=== PATIENT | male | born 1945 | race Caucasian/White ===

== ENCOUNTER 2017-09-13 08:04 | Day surgery (SDC) | payer MEDICARE ==
[2017-09-12 13:57] VITALS: BMI 37.2
[~2017-09-13 08:04] MED LIST: ACETAMINOPHEN 325 MG TABLET (FP) PO PRN; BSS (NA/CA/MG/K) BALANCED SALT SOLUTION OPHTH SOLN 15 ML BOTTLE OD ONE; CHONDROITIN SU A/HYALUR SOD 1 KIT IO ONE; CIPROFLOXACIN HCL 0.3% OPHTH 2.5ML BOTTLE OP SCH; CYCLOPENTOLATE HCL 1% OPHTH SOLN 2 ML BOTTLE OP SCH; EPINEPHrine/PF 1 MG/1 ML (1:1,000) AMPULE IO ONE; FLURBIPROFEN 0.03% OPHTH SOLN 2.5 ML BOTTLE OP SCH; LIDOCAINE HCL 1% PRESERVATIVE FREE - 30ML VIAL IO ONE; PHENYLEPHRINE 2.5% OPHTH SOLN 15 ML BOTTLE OP SCH; POVIDONE-IODINE 5% OPHTHALMIC PREP 30 ML SOLUTION OD ONE; TROPICAMIDE 1% OPHTH SOLN 15 ML BOTTLE OP SCH
[2017-09-13] MEDS ORDERED: CIPROFLOXACIN 0.3% EYE DROPS 5 ML BOTTLE ONE (08:37)
[2017-09-13] MEDS ORDERED: TROPICAMIDE 1% OPHTH SOLN 15 ML BOTTLE ONE (08:37)
[2017-09-13] MEDS ORDERED: CYCLOPENTOLATE HCL 1% OPHTH SOLN 2 ML BOTTLE ONE (08:37)
[2017-09-13] MEDS ORDERED: PHENYLEPHRINE 2.5% OPHTH SOLN 15 ML BOTTLE ONE (08:37)
[2017-09-13 08:56] VITALS: TEMP 98.2
[2017-09-13] MEDS ORDERED: TROPICAMIDE 1% OPHTH SOLN 15 ML BOTTLE OD ONE ×2 (09:15→09:20)
[2017-09-13] MEDS ORDERED: PHENYLEPHRINE 2.5% OPHTH SOLN 15 ML BOTTLE OD ONE ×2 (09:15→09:20)
[2017-09-13] MEDS ORDERED: CYCLOPENTOLATE HCL 1% OPHTH SOLN 2 ML BOTTLE OD ONE ×2 (09:15→09:20)
[2017-09-13] MEDS ORDERED: CIPROFLOXACIN HCL 0.3% OPHTH 2.5ML BOTTLE OD ONE ×2 (09:15→09:20)
[2017-09-13] MEDS ORDERED: TETRACAINE 0.5% OPHTH SOLN 2 ML BOTTLE OD ONE (09:48)
[2017-09-13] MEDS ORDERED: MIDAZOLAM HCL 2 MG/2 ML SINGLE DOSE VIAL ONE (09:49)
[2017-09-13] MEDS ORDERED: TETRACAINE 0.5% OPHTH SOLN 2 ML BOTTLE ONE (09:59)
[2017-09-13] MEDS ORDERED: POVIDONE-IODINE 5% OPHTHALMIC PREP 30 ML SOLUTION OD ONE (10:13)
[2017-09-13] MEDS ORDERED: LIDOCAINE HCL 1% PRESERVATIVE FREE - 30ML VIAL IO ONE (10:21)
[2017-09-13] MEDS ORDERED: BSS (NA/CA/MG/K) BALANCED SALT SOLUTION OPHTH SOLN 15 ML BOTTLE OD ONE (10:21)
[2017-09-13] MEDS ORDERED: CHONDROITIN SU A/HYALUR SOD 1 KIT IO ONE (10:21)
[2017-09-13] MEDS ORDERED: EPINEPHrine/PF 1 MG/1 ML (1:1,000) AMPULE IO ONE (10:27)
--- NOTE | 2017-09-13 11:04 | SPEC ---
DATE OF OPERATION: OPERATION: Phacoemulsification of right cataract with posterior chamber intraocular lens implantation. Lens used [id number], 22.5 diopter power, Serial No. [id number]. PREOPERATIVE DIAGNOSIS: Cataract, right eye. POSTOPERATIVE DIAGNOSIS: Cataract, right eye. SURGEON: Chavez Culver M.D. ANESTHESIA: Topical MAC. COMPLICATIONS: None. PROCEDURE: The patient was brought to the operating room and correctly identified along with the operative site and the correct intraocular lens pichardo. The patient was then prepped and draped in the usual sterile fashion including 5% Betadine solution in the conjunctival sac and an eyelid drape. An eyelid speculum was then placed in the eye. A paracentesis port was created and approximately 0.5 mL of preservative free Lidocaine was then injected into the eye. Viscoelastic was then injected to inflate the anterior chamber. A temporal clear corneal wound was created. A continuous circular capsulorrhexis was performed. The nucleus was then hydrodissected with BSS and removed with phacoemulsification. The remaining cortical material was irrigated and aspirated. Viscoelastic was injected to inflate the capsular bag and the intraocular lens was then implanted into the capsular bag. The remaining Viscoelastic was irrigated and aspirated from the eye. The IOL was noted to be well centered and completely covered by the anterior capsulorrhexis. Topical vancomycin was placed and the eye patched and shielded. All wounds were tested and found to be watertight. No suture was placed. The eye was then shielded. The patient was then discharged from the operating room in stable condition. Nikky POLLARD/[id number]
[2017-09-13 11:47] VITALS: BP 106/70; PULSE 96
== END 2017-09-13 12:07 | disposition home or self-care (01) ==
LOC: JASU-SURG 08:04
PROVIDERS: ATTEND Ophthalmology
PROC: 08RJ3JZ Replacement of Right Lens with Synthetic Substitute, Percutaneous Approach (ICD-10-PCS; principal; 2017-09-13 10:00)
DX: H26.9 Unspecified cataract (principal)

== ENCOUNTER 2019-01-25 12:21 | Inpatient (IN) | payer OTHER ==
--- NOTE | 2019-01-25 12:32 | PDOC ---
History of Present Illness - General Stated Complaint: SHORTNESS OF BREATHE Time Seen by Provider: 01/25/19 12:30 History Source: Patient Exam Limitations: No Limitations - History of Present Illness Initial Comments: 73 yo M w a hx of CAD, CABG - 2004, IDDM with CKD, HTN, HLD, COPD on home O2, sleep apnea, refractory anemia presents to the ER sent from his renal doctor because the patient had a fast and irregular heart rate and the patient also appeared yellow. Here in the ED the patient is short of breath and endorses difficulty breathing. He states he cannot lie flat and feels like he will choke if he lies back. The patient states he has been experiencing worsening shortness of breath over the past few weeks. He has a hard time walking two block without becoming short of breath. He denies having any current chest pain and states that he has not experienced chest pain since he received quadruple bypass surgery in 2004. He notes to be compliant with all of his meds. The patient reports he has no history of liver disease and has never used IV drugs. PCP: Dashawn Sauceda Hairspring Assembler: Dr. Macario PSH: quadruple bypass, pacemaker, cataracts Social Hx: Former 40 pack year smoker. Quit 15 years ago. Denies alcohol or other substance usage. Allergies: NKA, NKDA Past History - Past Medical History Allergies/Adverse Reactions: Allergies Allergy/AdvReac Type Severity Reaction Status Date / Time No Known Allergies Allergy Verified 01/25/19 12:44 Home Medications: Ambulatory Orders Aspirin [Aspirin EC] 81 mg PO DAILY 09/12/17 Insulin Aspart [Novolog] 5 unit SQ TID 09/12/17 Albuterol Sulfate Inhaler - [Ventolin Hfa Inhaler -] 1 - 2 inh PO Q4H 09/13/17 Docusate Sodium [Colace -] 100 mg PO DAILY 09/13/17 Folic Acid 1 mg PO DAILY 09/13/17 Furosemide 20 mg PO DAILY 09/13/17 Linaclotide [Linzess] 145 mcg PO DAILY 09/13/17 Meclizine HCl 25 mg PO DAILY 09/13/17 Metoprolol Succinate [Toprol Xl -] 50 mg PO BID 09/13/17 Sodium Bicarbonate 650 mg PO TID 09/13/17 Umeclidinium Brm/Vilanterol Tr [Anoro Ellipta 62.5-25 Mcg INH] 1 each IH DAILY 09/13/17 Atorvastatin Calcium [Lipitor] 10 mg PO DAILY 01/25/19 Icosapent Ethyl [Vascepa] 2 gm PO BID 01/25/19 Insulin Detemir [Levemir Flextouch] 0 unit SQ DAILY 01/25/19 Insulin Glargine,Hum.rec.anlog [Basaglar Kwikpen U-100] 20 unit SQ DAILY Ranolazine [Ranexa] 1,000 mg PO BID 01/25/19 Ticagrelor [Brilinta] 90 mg PO BID 01/25/19 Anemia: Yes Asthma: No Cancer: No Cardiac Disorders: Yes (BYPASS) CVA: No COPD: Yes CHF: No Dementia: No Diabetes: Yes GI Disorders: No Disorders: Yes ("KIDNEY PROBLEM") HTN: Yes Hypercholesterolemia: Yes Liver Disease: No Seizures: No Thyroid Disease: Yes - Surgical History Cardiac Surgery: Yes (BYPASS,STENT,PACEMAKER) - Suicide/Smoking/Psychosocial Hx Smoking History: Never smoked Hx Alcohol Use: No Drug/Substance Use Hx: No Substance Use Type: None Hx Substance Use Treatment: No Review of Systems - Review of Systems Able to Perform ROS?: Yes Comments:: CONSTITUTIONAL: Present: Fatigue Absent: fever, no chills EYES: Absent: visual changes ENT: Absent: ear pain, no sore throat CARDIOVASCULAR: Absent: chest pain, no palpitations RESPIRATORY: Present: Cough, SOB GI: Absent: abdominal pain, no nausea, no vomiting, no constipation, no diarrhea GENITOURINARY: Absent: dysuria, no frequency, no hematuria MUSKULOSKELETAL: Present: Arthralgia Absent: back pain, no myalgia SKIN: Absent: rash NEURO: Absent: headache *Physical Exam - Physical Exam Comments: GENERAL: Patient looks Yellow on his upper body. Moderate distress. HEENT: Normocephalic, atraumatic. PERRL, EOM intact. CARDIOVASCULAR: Tachycardic rate and irregular rhythm. Normal S1, S2. PULMONARY: There are crackles midway up both lung infante. Clear evidence of respiratory distress. ABDOMEN: Hard, distended, non-tender. EXTREMITIES: Normal ROM in all four extremities. No gross deformities. 1+ edema in both legs , 1+ DP pulses SKIN: Warm, dry. Yellow NEUROLOGICAL: No focal neurological deficits. ED Treatment Course - LABORATORY CBC & Chemistry Diagram: 01/25/19 13:00 01/25/19 13:00 Medical Decision Making - Medical Decision Making 73 yo M w a hx of CAD, CABG - 2004, IDDM with CKD, HTN, HLD, COPD on home O2, sleep apnea, refractory anemia presents to the ER sent from his renal doctor because the patient had a fast and irregular heart rate and the patient also appeared yellow. Here in the ED the patient is short of breath and endorses difficulty breathing. He states he cannot lie flat and feels like he will choke if he lies back. The patient states he has been experiencing worsening shortness of breath over the past few weeks. He has a hard time walking two block without becoming short of breath. He denies having any current chest pain and states that he has not experienced chest pain since he received quadruple bypass surgery in 2004. He notes to be compliant with all of his meds. The patient reports he has no history of liver disease and has never used IV drugs. VS: Tachycardic, tachypneic - crackles midway up both lung infante DDx IBNLT: Afib w RVR, CHF, ACS/TX, Arrhythmia, PNA, Sepsis Plan: Labs, Urine, CXR, EKG, ECHO, Cardio consult, Lasix, Lopressor, Admit Tele. - Will do bedside ECHO and get a formal one. - Will consult cardio - varsha regarding whether to give lopressor or diltiazem Troponin elevated at 0.27 BNP elevated suggesting heart failure Varsha came and evaluated the patient and agrees with the plan to diurese him, slow down his HR with lopressor and admit the patient to Tele. - EKG similar to baseline according to Dr. cerda Patient's Primary is Dashawn Sauceda - Spoke with Danielle about the patient who accepted the admission to his service. The son - Marshal - would like to be updated with results - [phone] *DC/Admit/Observation/Transfer Diagnosis at time of Disposition: Heart failure, Atrial fibrillation with RVR, Pulmonary edema with congestive heart failure - Discharge Dispostion Condition at time of disposition: Guarded Decision to Admit order: Yes - Referrals - Patient Instructions - Post Discharge Activity
--- NOTE | 2019-01-25 12:33 | PDOC ---
Attending Attestation - HPI HPI: 01/25/19 13:04 The patient is a 73 year old male, with a significant PMH of Anemia, COPD on O2 , sleep apnea, HF, CABG (2004), diabetes, HTN, hypercholesterolemia, and thyroid disease who presents to the emergency department with worsening shortness of breath for the past couple of weeks. The patient states he went to see Dr. Clements, and was advised to come to the ED due to his fast and irregular heart rate. The patient states he endorses mild leg swelling, secondary to his symptoms. The patient denies chest pain, headache or dizziness. The patient denies fever, chills, diarrhea or constipation. The patient denies dysuria, frequency, urgency or hematuria. Allergies: NKDA Past surgical history: Cardiac Surgery (quadruple bypass, stent, pacemaker) Social history: Former smoker (quit 15 years ago). No alcohol use. PCP: Dr. Dashawn Sauceda Cigar Head Perforator: Dr. Macario <Kavitha Ash - Last Filed: 01/25/19 13:09> - Resident Resident Name: Frank Cortes - ED Attending Attestation I have performed the following: I have examined & evaluated the patient, The case was reviewed & discussed with the resident, I agree w/resident's findings & plan, Exceptions are as noted - Physicial Exam PE: GENERAL: Awake, alert, and fully oriented, in no acute distress. Obese. HEAD: No signs of trauma EYES: PERRLA, EOMI, sclera anicteric, conjunctiva clear ENT: Auricles normal inspection, hearing grossly normal, nares patent, oropharynx clear without exudates. Moist mucosa NECK: Normal ROM, supple, no lymphadenopathy, JVD, or masses LUNGS: Good air entry B/L, +Coarse crackles residential up lung infante B/L. HEART: Regular rate and rhythm, normal S1 and S2, no murmurs, rubs or gallops ABDOMEN: Soft, nontender, normoactive bowel sounds. No guarding, no rebound. No masses EXTREMITIES: Normal range of motion, 1+ pitting edema BLE to proximal garcia. No clubbing or cyanosis. No cords, erythema, or tenderness NEUROLOGICAL: Cranial nerves II through XII grossly intact. Normal speech. Motor and sensation intact SKIN: Warm, Dry, normal turgor, no rashes or lesions noted. - Medical Decision Making EKG appears to be aflutter (p waves are inverted). Will contact cardio for prior EKG results, as last one in [facility] is from 2017. Will give castro as he is clearly fluid-overloaded. Plan for admission. <Jennifer Patel - Last Filed: 01/25/19 13:18> Attestations - Attestations 01/25/19 13:05 Documentation prepared by Kavitha Ash, acting as emergency medical dispatcher for Jennifer Patel MD, MD <Kavitha Ash - Last Filed: 01/25/19 13:09>
[2019-01-25] MEDS ORDERED: FUROSEMIDE 40 MG/4 ML INJECTABLE VIAL IVPUSH ONE (12:48)
[2019-01-25] MEDS ORDERED: ASPIRIN 81 MG CHEWABLE TABLETS PO ONE (12:48)
[2019-01-25] MEDS ORDERED: FUROSEMIDE 40 MG/4 ML INJECTABLE VIAL ONE (13:12)
[2019-01-25 13:18] LABS: BASO % 0.2 % (0-2.0); EOS % 0.6 % (0-4.5); HEMATOCRIT 26.1 % (35.4-49); HEMOGLOBIN 8.3 GM/dL (11.7-16.9); LYMPH % 10.3 % (8-40); MCH 32.2 pg (25.7-33.7); MCHC 31.9 g/dl (32.0-35.9); MEAN CELL VOLUME 100.9 fl (80-96); MEAN PLT VOLUME 9.3 fl (7.5-11.1); MONO % 8.4 % (3.8-10.2); NEUT % 80.5 % (42.8-82.8); PLATELET COUNT 217 K/MM3 (134-434); RBC 2.59 M/mm3 (4.00-5.60); RDW 29.4 % (11.9-15.9); WHITE BLOOD COUNT 11.4 K/mm3 (4.0-10.0)
[2019-01-25 13:30] LABS: INR 1.29 (0.83-1.09); PROTHROMBIN TIME (PATIENT) 15.3 SEC (9.7-13.0)
[2019-01-25 13:32] LABS: ACTIVATED PTT 33.5 SECONDS (25.2-36.5)
--- NOTE | 2019-01-25 13:40 | CON.CARD ---
Consult Consult Specialty:: Cardiology Reason for Consultation:: sob - History of Present Illness History of Present Illness: The patient is a 73 year old male, with a significant PMH of Anemia, COPD on O2 , sleep apnea, HF, CABG (2004), diabetes, HTN, hypercholesterolemia, and thyroid disease who presents to the emergency department with worsening shortness of breath for the past couple of weeks. The patient states he went to see Dr. Clements, and was advised to come to the ED due to his fast and irregular heart rate. The patient states he endorses mild leg swelling, secondary to his symptoms. The patient denies chest pain, headache or dizziness. The patient denies fever, chills, diarrhea or constipation. The patient denies dysuria, frequency, urgency or hematuria. Allergies: NKDA Past surgical history: Cardiac Surgery (quadruple bypass, stent, pacemaker) Social history: Former smoker (quit 15 years ago). No alcohol use. PCP: Dr. Dashawn Sauceda Beading Installer: Dr. Macario PMH Ongoing medical problems 4 v CABG DOVE to LAD, radial to OM, SVG to Ramus and D1 [facility] s/p L CEA ASHD s/p PCI dRCA Resolute stent April 2013 [facility] distal LM January 2014 Dr. Daniel DM Hyperlipidemia s/p ICD Medtronic single chamber 2009 - History Source History Provided By: Patient, Medical Record - Past Medical History Cardio/Vascular: Yes: CAD, CHF - Alcohol/Substance Use Hx Alcohol Use: No - Smoking History Smoking history: Never smoked Have you smoked in the past 12 months: No Home Medications - Allergies Allergies/Adverse Reactions: Allergies Allergy/AdvReac Type Severity Reaction Status Date / Time No Known Allergies Allergy Verified 01/25/19 12:44 - Home Medications Home Medications: Ambulatory Orders Aspirin [Aspirin EC] 81 mg PO DAILY 09/12/17 Insulin Aspart [Novolog] 5 unit SQ TID 09/12/17 Albuterol Sulfate Inhaler - [Ventolin Hfa Inhaler -] 1 - 2 inh PO Q4H 09/13/17 Docusate Sodium [Colace -] 100 mg PO DAILY 09/13/17 Folic Acid 1 mg PO DAILY 09/13/17 Furosemide 20 mg PO DAILY 09/13/17 Linaclotide [Linzess] 145 mcg PO DAILY 09/13/17 Meclizine HCl 25 mg PO DAILY 09/13/17 Metoprolol Succinate [Toprol Xl -] 50 mg PO BID 09/13/17 Sodium Bicarbonate 650 mg PO TID 09/13/17 Umeclidinium Brm/Vilanterol Tr [Anoro Ellipta 62.5-25 Mcg INH] 1 each IH DAILY 09/13/17 Atorvastatin Calcium [Lipitor] 10 mg PO DAILY 01/25/19 Icosapent Ethyl [Vascepa] 2 gm PO BID 01/25/19 Insulin Detemir [Levemir Flextouch] 0 unit SQ DAILY 01/25/19 Insulin Glargine,Hum.rec.anlog [Basaglar Kwikpen U-100] 20 unit SQ DAILY Ranolazine [Ranexa] 1,000 mg PO BID 01/25/19 Ticagrelor [Brilinta] 90 mg PO BID 01/25/19 Review of Systems - Review of Systems Constitutional: reports: No Symptoms Eyes: reports: No Symptoms HENT: reports: No Symptoms Neck: reports: No Symptoms Cardiovascular: reports: No Symptoms, Shortness of Breath Gastrointestinal: reports: No Symptoms Genitourinary: reports: No Symptoms Breasts: reports: No Symptoms Reported Musculoskeletal: reports: No Symptoms Integumentary: reports: No Symptoms Neurological: reports: No Symptoms Endocrine: reports: No Symptoms Hematology/Lymphatic: reports: No Symptoms Psychiatric: reports: No Symptoms Vital Signs: Vital Signs Temperature 98.6 F 01/25/19 12:25 Pulse Rate 112 H 01/25/19 12:25 Respiratory Rate 20 01/25/19 12:25 Blood Pressure 134/81 01/25/19 12:25 O2 Sat by Pulse Oximetry (%) 98 01/25/19 12:43 Constitutional: Yes: Well Nourished, No Distress, Calm Eyes: Yes: WNL, Conjunctiva Clear, EOM Intact HENT: Yes: WNL, Atraumatic, Normocephalic Neck: Yes: WNL, Supple, Trachea Midline Respiratory: Yes: WNL, Regular, CTA Bilaterally Gastrointestinal: Yes: WNL, Normal Bowel Sounds Renal/: Yes: WNL Cardiovascular: Yes: WNL, Regular Rate and Rhythm Heart Sounds: Yes: S1 Musculoskeletal: Yes: WNL Extremities: Yes: WNL Edema: Yes Integumentary: Yes: WNL Neurological: Yes: WNL, Alert, Oriented ...Motor Strength: WNL Psychiatric: Yes: WNL, Alert, Oriented - Other Data Labs, Other Data: CBC, BMP 01/25/19 13:00 INR, PTT INR 1.29 (0.83-1.09) H 01/25/19 13:00 Laboratory Tests 01/25/19 01/25/19 13:00 13:00 WBC 11.4 H RBC 2.59 L Hgb 8.3 L Hct 26.1 L MCV 100.9 H MCH 32.2 MCHC 31.9 L RDW 29.4 H Plt Count 217 MPV 9.3 Absolute Neuts (auto) 9.2 H Neutrophils % 80.5 Lymphocytes % 10.3 Monocytes % 8.4 Eosinophils % 0.6 Basophils % 0.2 Nucleated RBC % 1 H PT with INR 15.30 H INR 1.29 H PTT (Actin FS) 33.5 Imaging - Results Chest X-ray: Pending EKG: Pending Assessment/Plan Anemia, COPD on O2, sleep apnea, HF, CABG (2004), diabetes, HTN, hypercholesterolemia, and thyroid disease who presents to the emergency department with worsening shortness of breath for the past couple of weeks. The patient states he went to see Dr. Clements, and was advised to come to the ED due to his fast and irregular heart rate. The patient states he endorses mild leg swelling, secondary to his symptoms. 4 v CABG DOVE to LAD, radial to OM, SVG to Ramus and D1 [facility] s/p L CEA ASHD s/p PCI dRCA Resolute stent April 2013 [facility] distal LM January 2014 Dr. Daniel DM Hyperlipidemia s/p ICD Medtronic single chamber 2009
[2019-01-25 13:52] LABS: ALBUMIN 3.6 g/dl (3.4-5.0); ALK PHOS 50 U/L (45-117); ANION GAP 5 MMOL/L (8-16); BILIRUBIN,TOTAL 1.2 mg/dL (0.2-1); BLOOD UREA NITROGEN 20 mg/dL (7-18); CALCIUM 8.5 mg/dL (8.5-10.1); CHLORIDE 101 mmol/L (98-107); CO2 29 mmol/L (21-32); CREATININE 1.2 mg/dL (0.55-1.3); GLUCOSE,RANDOM 58 mg/dL (74-106); N-TERMINAL BNP 4858.4 pg/ml (5-125); POTASSIUM 4.4 mmol/L (3.5-5.1); SGOT/AST 26 U/L (15-37); SGPT/ALT 17 U/L (13-61); SODIUM 135 mmol/L (136-145); TOT PROT 7.7 g/dl (6.4-8.2)
[2019-01-25] MEDS ORDERED: METOPROLOL TARTRATE 5 MG/5 ML VIAL IVPUSH ONE (13:56)
[2019-01-25] MEDS ORDERED: METOPROLOL TARTRATE 5 MG/5 ML VIAL ONE (14:06)
[2019-01-25 14:46] LABS: ANISOCYTOSIS 2+; MACROCYTOSIS 0; PLATELET ESTIMATE NORMAL; TARGET CELLS 2+
[2019-01-25 15:07] LABS: PH,URINE 6.5 (5.0-8.0); URINE APPEARANCE CLEAR; URINE BILIRUBIN NEGATIVE (NEGATIVE); URINE COLOR YELLOW; URINE GLUCOSE (UA) NEGATIVE (NEGATIVE); URINE KETONE NEGATIVE (NEGATIVE); URINE LEUK ESTERASE NEGATIVE (NEGATIVE); URINE NITRITE NEGATIVE (NEGATIVE); URINE PROTEIN TRACE (NEGATIVE)
--- NOTE | 2019-01-25 15:07 | EKG ---
Test Reason : Blood Pressure : / mmHG Vent. Rate : 113 BPM Atrial Rate : 226 BPM P-R Int : 000 ms QRS Dur : 098 ms QT Int : 398 ms P-R-T Axes : 257 050 201 degrees QTc Int : 545 ms ATRIAL FLUTTER WITH VARIABLE A-V BLOCK NONSPECIFIC ST AND T WAVE ABNORMALITY PROLONGED QT ABNORMAL ECG WHEN COMPARED WITH ECG OF 10-MAR-2010 08:27, ATRIAL FLUTTER HAS REPLACED SINUS RHYTHM ST NOW DEPRESSED IN INFERIOR LEADS ST NOW DEPRESSED IN LATERAL LEADS NONSPECIFIC T WAVE ABNORMALITY, WORSE IN LATERAL LEADS Confirmed by FRANCISCO EDWARDS MD ([id number]) on 01/25/2019 3:06:53 PM Referred By: Confirmed By:FRANCISCO EDWARDS MD
--- NOTE | 2019-01-25 16:15 | ECHO ---
Name: PRANAV TOMLIN Exam:Adult Echocardiogram Study Date: 01/25/2019 03:27 PM Age: 73 yrs MMode/2D Measurements & Calculations IVSd: 1.1 cm Ao root diam: 3.3 cm LVIDd: 5.7 cm LA dimension: 4.1 cm LVIDs: 3.4 cm LVPWd: 1.1 cm LVPWs: 1.3 cm EDV(Teich): 158.1 ml ESV(Teich): 46.8 ml RV S Delbert: 8.7 cm/sec Doppler Measurements & Calculations MV E max delbert: 1.5 cm/sec Ao V2 max: 159.7 cm/sec Ao max P.2 mmHg Ao V2 mean: 104.9 cm/sec Ao mean P.3 mmHg Ao V2 VTI: 28.2 cm LV V1 max P.7 mmHg MR max delbert: 498.9 cm/sec LV V1 mean P.3 mmHg MR max P.6 mmHg LV V1 max: 82.0 cm/sec LV V1 mean: 50.8 cm/sec LV V1 VTI: 16.1 cm TR max delbert: 306.0 cm/sec PA V2 max: 93.7 cm/sec TR max P.6 mmHg PA max P.5 mmHg Med Peak E' Delbert: 8.4 cm/sec Med E/e': 0.18 Lat Peak E' Delbert: 10.7 cm/sec Lat E/e': 0.14 Procedure The study was technically difficult with many images being suboptimal in quality. The study was non-d iagnostic in quality. No definitive statements could be made about this echo due to extremely poor acoustic win dows. Left Ventricle The left ventricle is mildly dilated. Due to the poor quality of the echocardiogram, an assessment of left ventricular ejection fraction cannot be made. Regional wall motion abnormalities cannot be excluded d ue to limited visualization. Right Ventricle There is a pacemaker lead in the right ventricle. The right ventricle is normal in size and function. Atria The left atrium is mildly dilated. The right atrium is mildly dilated. Mitral Valve The mitral valve is not well visualized. Tricuspid Valve There is mild tricuspid valve thickening. The tricuspid valve is not well visualized. There is no tri cuspid stenosis. There is mild tricuspid regurgitation. Right ventricular systolic pressure is elevated at 5 0-60mmHg. Aortic Valve The aortic valve is not well visualized. No hemodynamically significant valvular aortic stenosis. No aortic regurgitation is present. Pulmonic Valve The pulmonic valve is not well visualized. Great Vessels The aortic root is normal size. Pericardium/Pleura There is no pericardial effusion. Interpretation Summary The study was technically difficult with many images being suboptimal in quality. The left ventricle is mildly dilated. Regional wall motion abnormalities cannot be excluded due to limited visualization. There is a pacemaker lead in the right ventricle. There is mild tricuspid regurgitation. Right ventricular systolic pressure is elevated at 50-60mmHg. Due to the poor quality of the echocardiogram, an assessment of left ventricular ejection fraction ca nnot be made. The study was non-diagnostic in quality. No definitive statements could be made about this echo due t o extremely poor acoustic windows. The left atrium is mildly dilated. The right atrium is mildly dilated. The mitral valve is not well visualized. The tricuspid valve is not well visualized. MD Tunde Maddox 01/25/2019 04:14 PM
--- NOTE | 2019-01-25 16:55 | HP ---
Admitting History and Physical - Primary Care Physician PCP: Dashawn Sauceda - Admission Chief Complaint: tachycardia History of Present Illness: Patient is 73 y/o male with past medical history Anemia, COPD on O2, sleep apnea , heart failure, CABG 2015, diabetes, HTN, hypercholesterolemia, and thyroid disease. Patient presented to the ER with complaints of worsening SOB for past couple of weeks. Today patient was seen by his academy education director Dr Clements and was noted to be tachycardic. In ER EKG noted with A-flutter and trop 0.27. History Source: Patient Limitations to Obtaining History: No Limitations - Past Medical History Cardiovascular: Yes: CAD, CHF - Past Surgical History Past Surgical History: Yes: Bypass (2004), Stent (2009) - Smoking History Smoking history: Never smoked Have you smoked in the past 12 months: No - Alcohol/Substance Use Hx Alcohol Use: No - Social History Usual Living Arrangement: Yes: With Child ADL: Independent History of Recent Travel: No Home Medications - Allergies Allergies/Adverse Reactions: Allergies Allergy/AdvReac Type Severity Reaction Status Date / Time No Known Allergies Allergy Verified 01/25/19 12:44 - Home Medications Home Medications: Ambulatory Orders Aspirin [Aspirin EC] 81 mg PO DAILY 09/12/17 Insulin Aspart [Novolog] 5 unit SQ TID 09/12/17 Albuterol Sulfate Inhaler - [Ventolin Hfa Inhaler -] 1 - 2 inh PO Q4H 09/13/17 Docusate Sodium [Colace -] 100 mg PO DAILY 09/13/17 Folic Acid 1 mg PO DAILY 09/13/17 Furosemide 20 mg PO DAILY 09/13/17 Linaclotide [Linzess] 145 mcg PO DAILY 09/13/17 Meclizine HCl 25 mg PO DAILY 09/13/17 Metoprolol Succinate [Toprol Xl -] 50 mg PO BID 09/13/17 Sodium Bicarbonate 650 mg PO TID 09/13/17 Umeclidinium Brm/Vilanterol Tr [Anoro Ellipta 62.5-25 Mcg INH] 1 each IH DAILY 09/13/17 Atorvastatin Calcium [Lipitor] 10 mg PO DAILY 01/25/19 Icosapent Ethyl [Vascepa] 2 gm PO BID 01/25/19 Insulin Detemir [Levemir Flextouch] 0 unit SQ DAILY 01/25/19 Insulin Glargine,Hum.rec.anlog [Arnoldoaglcarmelita Persaud U-100] 20 unit SQ DAILY Ranolazine [Ranexa] 1,000 mg PO BID 01/25/19 Ticagrelor [Brilinta] 90 mg PO BID 01/25/19 Review of Systems - Review of Systems Constitutional: reports: Weakness Eyes: reports: No Symptoms HENT: reports: No Symptoms Neck: reports: No Symptoms Cardiovascular: reports: No Symptoms Respiratory: reports: Cough, SOB Gastrointestinal: reports: Constipation Genitourinary: reports: No Symptoms Breasts: reports: No Symptoms Reported Musculoskeletal: reports: No Symptoms Integumentary: reports: No Symptoms Neurological: reports: No Symptoms Endocrine: reports: No Symptoms Hematology/Lymphatic: reports: No Symptoms Psychiatric: reports: No Symptoms Physical Examination Vital Signs: Vital Signs Temperature 98 F 01/25/19 16:15 Pulse Rate 113 H 01/25/19 16:15 Respiratory Rate 20 01/25/19 16:15 Blood Pressure 127/62 01/25/19 16:15 O2 Sat by Pulse Oximetry (%) 96 01/25/19 16:15 Constitutional: Yes: No Distress, Calm, Obese Eyes: Yes: Conjunctiva Clear HENT: Yes: Atraumatic Neck: Yes: Supple Cardiovascular: Yes: Tachycardia Respiratory: Yes: Regular, On Nasal O2, Other (crackles) Gastrointestinal: Yes: Normal Bowel Sounds, Soft, Abdomen, Obese Musculoskeletal: Yes: WNL Extremities: Yes: WNL Edema: No Neurological: Yes: Alert, Oriented Psychiatric: Yes: Alert, Oriented Labs: CBC, BMP 01/25/19 13:00 01/25/19 13:00 Imaging - Results Chest X-ray: Report Reviewed X-ray: Report Reviewed Problem List - Problems (1) Heart failure Assessment/Plan: -cardiology on board -Furosemide 20mg and Ranexa -1L fluid restriction -daily weights -BNP 4858 Code(s): I50.9 - HEART FAILURE, UNSPECIFIED (2) Atrial fibrillation with RVR Assessment/Plan: -admit to tele unit for cardiac monitoring -cardiology on board -Echo results reviewed -Metoprolol 50mg BID Code(s): I48.91 - UNSPECIFIED ATRIAL FIBRILLATION (3) CKD (chronic kidney disease) Assessment/Plan: -renal consult -BUN/Cr 04/11.2 -monitor renal function daily Code(s): N18.9 - CHRONIC KIDNEY DISEASE, UNSPECIFIED (4) IDDM (insulin dependent diabetes mellitus) Assessment/Plan: -BGM ACHS -Levemir + ISS -HgA1c ordered Code(s): E11.9 - TYPE 2 DIABETES MELLITUS WITHOUT COMPLICATIONS; Z79.4 - SOD FARMER (CURRENT) USE OF INSULIN (5) COPD (chronic obstructive pulmonary disease) Assessment/Plan: -pulm consult -O2 via NC -bronchodilators -keep SpO2 >90% Code(s): J44.9 - CHRONIC OBSTRUCTIVE PULMONARY DISEASE, UNSPECIFIED (6) Elevated troponin Assessment/Plan: -trop 0.27 -repeat trop ordered -will monitor for downtrend -cardiology on board Code(s): R74.8 - ABNORMAL LEVELS OF OTHER SERUM ENZYMES Assessment/Plan see problem list dvt ppx
[2019-01-25] MEDS: RANOLAZINE E.R. 1,000 MG TABLET (FP) PO SCH (21:55)
[2019-01-25] MEDS: ATORVASTATIN CA 10 MG TABLET (FP) PO SCH (21:55)
[2019-01-25] MEDS: INSULIN SLIDING SCALE (NOVOLOG) 1 VIAL SQ SCH (21:56)
[2019-01-25] MEDS: SODIUM BICARBONATE 650 MG TABLET PO SCH (21:56)
[2019-01-25] MEDS ORDERED: HEPARIN NA (PORCINE) 5,000 UNITS/ML 1ML VIAL SQ SCH (22:00)
[2019-01-25] MEDS ORDERED: METOPROLOL TARTRATE 50 MG TABLET (FP) PO SCH (22:00)
[2019-01-25] MEDS: TICAGRELOR 90 MG TABLET PO SCH (22:37)
[2019-01-25] MEDS: ALBUTEROL SO4 0.083% IH SOL 2.5 MG/3 ML VIAL.NEB. NEB PRN (23:40)
[2019-01-26 00:33] VITALS: BMI 33.0
[2019-01-26] MEDS: INSULIN SLIDING SCALE (NOVOLOG) 1 VIAL SQ SCH ×4 (06:02→21:40)
[2019-01-26 06:43] LABS: BASO % 0.4 % (0-2.0); EOS % 1.3 % (0-4.5); HEMATOCRIT 25.9 % (35.4-49); HEMOGLOBIN 8.5 GM/dL (11.7-16.9); LYMPH % 11.5 % (8-40); MCH 32.8 pg (25.7-33.7); MCHC 32.7 g/dl (32.0-35.9); MEAN CELL VOLUME 100.2 fl (80-96); MEAN PLT VOLUME 9.2 fl (7.5-11.1); MONO % 9.1 % (3.8-10.2); NEUT % 77.7 % (42.8-82.8); PLATELET COUNT 198 K/MM3 (134-434); RBC 2.59 M/mm3 (4.00-5.60); RDW 29.2 % (11.9-15.9); WHITE BLOOD COUNT 9.7 K/mm3 (4.0-10.0)
[2019-01-26 06:59] LABS: LDH 441 U/L (87-246)
[2019-01-26 07:15] LABS: ALBUMIN 3.4 g/dl (3.4-5.0); ALK PHOS 47 U/L (45-117); ANION GAP 7 MMOL/L (8-16); BLOOD UREA NITROGEN 22 mg/dL (7-18); CALCIUM 8.6 mg/dL (8.5-10.1); CHLORIDE 100 mmol/L (98-107); CHOLESTEROL 80 mg/dL (50-200); CO2 30 mmol/L (21-32); CREATININE 1.4 mg/dL (0.55-1.3); GLUCOSE,RANDOM 64 mg/dL (74-106); HDL CHOLESTEROL 26 mg/dL (40-60); LDH 242 U/L (87-246); N-TERMINAL BNP 4375.3 pg/ml (5-125); PHOSPHOROUS 3.4 mg/dL (2.5-4.9); POTASSIUM 4.2 mmol/L (3.5-5.1); SGOT/AST 21 U/L (15-37); SGPT/ALT 17 U/L (13-61); SODIUM 136 mmol/L (136-145); TOT PROT 7.2 g/dl (6.4-8.2); TRIGLYCERIDES 79 mg/dL (0-150)
--- NOTE | 2019-01-26 07:52 | PN ---
Progress Note, Physician Chief Complaint: Acute on chronic CHF History of Present Illness: NAD Seen by Cardiology IV diuresis in progress - Current Medication List Current Medications: Active Medications Albuterol Sulfate (Ventolin 0.083% Nebulizer Soln -) 1 amp NEB Q6H PRN PRN Reason: SHORT OF BREATH/WHEEZING Last Admin: 01/25/19 23:40 Dose: 1 amp Aspirin (Ecotrin -) 81 mg PO DAILY [facility] Atorvastatin Calcium (Lipitor -) 10 mg PO HS [facility] Last Admin: 01/25/19 21:55 Dose: 10 mg Folic Acid (Folic Acid -) 1 mg PO DAILY [facility] Furosemide (Lasix -) 20 mg PO DAILY [facility] Heparin Sodium (Porcine) (Heparin -) 5,000 unit SQ BID [facility] Last Admin: 01/25/19 21:56 Dose: 5,000 unit Insulin Aspart (Novolog Vial Sliding Scale -) 1 vial SQ ACHS [facility]; Protocol Last Admin: 01/26/19 06:02 Dose: Not Given Meclizine HCl (Antivert -) 25 mg PO DAILY [facility] Metoprolol Succinate (Toprol Xl -) 50 mg PO BID [facility] Last Admin: 01/25/19 21:55 Dose: 50 mg Polyethylene Glycol (Miralax (For Daily Use) -) 17 gm PO DAILY [facility] Ranolazine (Ranexa -) 1,000 mg PO BID [facility] Last Admin: 01/25/19 21:55 Dose: 1,000 mg Sodium Bicarbonate (Sodium Bicarbonate -) 650 mg PO BID [facility] Last Admin: 01/25/19 21:56 Dose: 650 mg Ticagrelor (Brilinta -) 90 mg PO BID [facility] Last Admin: 01/25/19 22:37 Dose: 90 mg Umeclidinium/Vilanterol (Anoro Ellipta 62.5-25 Mcg Inh) 1 puff IH DAILY [facility] - Objective Vital Signs: Vital Signs Temperature 97.8 F 01/26/19 05:56 Pulse Rate 112 H 01/26/19 05:56 Respiratory Rate 18 01/26/19 05:56 Blood Pressure 121/76 01/26/19 05:56 O2 Sat by Pulse Oximetry (%) 96 01/25/19 21:00 Constitutional: Yes: Well Nourished, No Distress, Calm, Obese Cardiovascular: Yes: Regular Rate and Rhythm Respiratory: Yes: Regular Gastrointestinal: Yes: Normal Bowel Sounds, Soft Musculoskeletal: Yes: WNL Extremities: Yes: WNL Edema: Yes Edema: LLE: 3+, RLE: 3+ Peripheral Pulses WNL: No Neurological: Yes: Alert, Oriented Psychiatric: Yes: Alert, Oriented Labs: CBC, BMP 01/26/19 05:30 01/26/19 05:30 INR, PTT INR 1.29 (0.83-1.09) H 01/25/19 13:00 Problem List - Problems (1) Diabetes Assessment/Plan: -BGM ACHS -Levemir + novolog sliding scale -HgA1c pending -low sodium diabetic diet -RD consult Code(s): E11.9 - TYPE 2 DIABETES MELLITUS WITHOUT COMPLICATIONS Qualifiers: Diabetes mellitus type: type 2 Assessment/Plan (1) Heart failure Assessment/Plan: -cardiology on board -Furosemide 20mg and Ranexa -1L fluid restriction -daily weights -monitor I&O's Code(s): I50.9 - HEART FAILURE, UNSPECIFIED (2) Atrial fibrillation with RVR Assessment/Plan: -ST on Tele with PPM -cardiology on board -Echo results reviewed-non diagnostic with poor quality -Repeat Echo on Monday -Metoprolol 50mg BID -start Eliquis Code(s): I48.91 - UNSPECIFIED ATRIAL FIBRILLATION (3) CKD (chronic kidney disease) Assessment/Plan: -renal consult -BUN/Cr 04/11.2 -monitor renal function daily Code(s): N18.9 - CHRONIC KIDNEY DISEASE, UNSPECIFIED (5) COPD (chronic obstructive pulmonary disease) Assessment/Plan: -pulm consult -O2 via NC -bronchodilators -keep SpO2 >90% Code(s): J44.9 - CHRONIC OBSTRUCTIVE PULMONARY DISEASE, UNSPECIFIED (6) Elevated troponin Assessment/Plan: -elevated 2/2 demand ischemia -trop 0.27 -repeat trop ordered -will monitor for downtrend -cardiology on board Code(s): R74.8 - ABNORMAL LEVELS OF OTHER SERUM ENZYMES
[2019-01-26 08:33] LABS: ANISOCYTOSIS 1+; OVALOCYTE 1+; PLATELET ESTIMATE NORMAL
[2019-01-26] MEDS ORDERED: PT OWN MED DRAWER 7, Y5N ONE ×3 (09:14→21:30)
[2019-01-26] MEDS: MECLIZINE HCL 25 MG TABLET (FP) PO SCH (09:57)
[2019-01-26] MEDS: TICAGRELOR 90 MG TABLET PO SCH (09:57)
[2019-01-26] MEDS: SODIUM BICARBONATE 650 MG TABLET PO SCH ×2 (09:57→21:39)
[2019-01-26] MEDS: FOLIC ACID 1 MG TABLET (FP) PO SCH (09:57)
[2019-01-26] MEDS: FUROSEMIDE 20 MG TABLET (FP) PO SCH (09:57)
[2019-01-26] MEDS: RANOLAZINE E.R. 1,000 MG TABLET (FP) PO SCH ×2 (09:57→21:39)
[2019-01-26] MEDS: APIXABAN 5 MG TABLET PO SCH ×2 (10:00→21:39)
[2019-01-26] MEDS ORDERED: ASPIRIN COATED 81 MG TABLET.EC PO SCH (10:00)
--- NOTE | 2019-01-26 10:29 | PN ---
Progress Note, Physician Chief Complaint: Coverage for Drs. Maddox and Avril Appears comfortable History of Present Illness: Patient was seen and examined. Awake and alert. Chart was reviewed Denies chest pain or SOB Atrial flutter with RVR - Current Medication List Current Medications: Active Medications Albuterol Sulfate (Ventolin 0.083% Nebulizer Soln -) 1 amp NEB Q6H PRN PRN Reason: SHORT OF BREATH/WHEEZING Last Admin: 01/25/19 23:40 Dose: 1 amp Apixaban (Eliquis -) 5 mg PO BID [facility] Last Admin: 01/26/19 10:00 Dose: 5 mg Aspirin (Ecotrin -) 81 mg PO DAILY [facility] Last Admin: 01/26/19 09:57 Dose: 81 mg Atorvastatin Calcium (Lipitor -) 10 mg PO HS [facility] Last Admin: 01/25/19 21:55 Dose: 10 mg Folic Acid (Folic Acid -) 1 mg PO DAILY [facility] Last Admin: 01/26/19 09:57 Dose: 1 mg Furosemide (Lasix -) 20 mg PO DAILY [facility] Last Admin: 01/26/19 09:57 Dose: 20 mg Insulin Aspart (Novolog Vial Sliding Scale -) 1 vial SQ ACHS [facility]; Protocol Last Admin: 01/26/19 06:02 Dose: Not Given Meclizine HCl (Antivert -) 25 mg PO DAILY [facility] Last Admin: 01/26/19 09:57 Dose: 25 mg Metoprolol Succinate (Toprol Xl -) 50 mg PO BID [facility] Last Admin: 01/26/19 10:01 Dose: 50 mg Polyethylene Glycol (Miralax (For Daily Use) -) 17 gm PO DAILY [facility] Ranolazine (Ranexa -) 1,000 mg PO BID [facility] Last Admin: 01/26/19 09:57 Dose: 1,000 mg Sodium Bicarbonate (Sodium Bicarbonate -) 650 mg PO BID [facility] Last Admin: 01/26/19 09:57 Dose: 650 mg Ticagrelor (Brilinta -) 90 mg PO BID [facility] Last Admin: 01/26/19 09:57 Dose: 90 mg Umeclidinium/Vilanterol (Anoro Ellipta 62.5-25 Mcg Inh) 1 puff IH DAILY [facility] - Objective Vital Signs: Vital Signs Temperature 98.8 F 01/26/19 08:46 Pulse Rate 110 H 01/26/19 08:46 Respiratory Rate 18 01/26/19 08:46 Blood Pressure 109/46 L 01/26/19 08:46 O2 Sat by Pulse Oximetry (%) 96 01/25/19 21:00 Eyes: Yes: PERRL HENT: Yes: Atraumatic Neck: Yes: Supple Cardiovascular: Yes: Tachycardia, Pulse Irregular, S1, S2 Respiratory: Yes: CTA Bilaterally Gastrointestinal: Yes: Normal Bowel Sounds, Soft. No: Tenderness Edema: No Additional Findings/Remarks: - Review of Systems Constitutional: denies: Chills, Fever Cardiovascular: (-) Chest Pain. (+) Palpitations, (-) Shortness of Breath Respiratory: denies Cough. denies: Hemoptysis, Orthopnea, PND, (-) SOB, SOB on Exertion Gastrointestinal: denies: Abdominal Pain, Constipation, Diarrhea, Melena, Nausea , Rectal Bleeding, Vomiting Neurological: denies: Dizziness, Headache, Seizure, Syncope Labs: CBC, BMP 01/26/19 05:30 01/26/19 05:30 INR, PTT INR 1.29 (0.83-1.09) H 01/25/19 13:00 Problem List - Problems (1) Sick sinus syndrome Code(s): I49.5 - SICK SINUS SYNDROME (2) Presence of cardiac pacemaker Code(s): Z95.0 - PRESENCE OF CARDIAC PACEMAKER (3) Hypercholesterolemia Code(s): E78.00 - PURE HYPERCHOLESTEROLEMIA, UNSPECIFIED (4) Atrial flutter Code(s): I48.92 - UNSPECIFIED ATRIAL FLUTTER (5) CKD (chronic kidney disease) Code(s): N18.9 - CHRONIC KIDNEY DISEASE, UNSPECIFIED (6) COPD (chronic obstructive pulmonary disease) Code(s): J44.9 - CHRONIC OBSTRUCTIVE PULMONARY DISEASE, UNSPECIFIED (7) Diabetes Code(s): E11.9 - TYPE 2 DIABETES MELLITUS WITHOUT COMPLICATIONS Qualifiers: Diabetes mellitus type: type 2 (8) HTN (hypertension) Code(s): I10 - ESSENTIAL (PRIMARY) HYPERTENSION Assessment/Plan 1. Atrial flutter with RVR 2. CAD s/p CABG, s/p PCI/GERALD (2013), angina pectoris 3. HTN 4. Hypercholesterolemia 5. DM 6. JARET 7. COPD 8. SSS s/p PPM PLAN: 1. Continue with Eliquis 5 mg BID. Continue Brilinta but may reduced to maintenance dose of 60 mg BID. D/C ASA 2. Continue Toprol XL 50 mg BID and Ranexa 1000 mg BID 3. Continue Lipitor 10 mg QHS 4. Continue diuretics - Lasix 20 mg QD and monitor renal function and electrolytes 5. If remains in Atrial flutter, may consider synchronized cardioversion with ERIKA guidance 6. Echocardiography reviewed 7. Ideally ACEI or ARB if BP permits Further plans are to follow Chris Suggs MD
[2019-01-26] MEDS: UMECLIDINIUM/VILANTEROL (ANORO) 62.5/25 MCG INHALER IH SCH (12:37)
[2019-01-26] MEDS: POLYETHYLENE GLYCOL 3350 119 GM BTL PO SCH (12:37)
--- NOTE | 2019-01-26 14:53 | CON.PULM ---
Consult Consult Specialty:: PULMONARY Referred by:: JUNE Lainez Reason for Consultation:: COPD - History of Present Illness Chief Complaint: shortness of breath History of Present Illness: 73yo male with h/o HTN, DM, hypercholesterolemia, COPD, chronic hypoxic respiratory failure on home O2, JARET, CAD s/p CABG who was admitted with worsening shortness of breath. Was seen by his imaging aide who noted that he was tachycardic, in rapid atrial flutter on EKG. No chest pain. No fevers, chills or sweats. Does endorse a cough productive of yellow sputum and occasional wheezing. - History Source History Provided By: Patient, Medical Record Limitations to Obtaining History: Language Barrier - Past Medical History Cardio/Vascular: Yes: CAD, CHF - Past Surgical History Past Surgical History: Yes: Bypass (2004), Stent (2009) - Alcohol/Substance Use Hx Alcohol Use: No - Smoking History Smoking history: Never smoked Have you smoked in the past 12 months: No If you are a former smoker, when did you quit?: 15 YRS - Social History ADL: Independent History of Recent Travel: No Home Medications - Allergies Allergies/Adverse Reactions: Allergies Allergy/AdvReac Type Severity Reaction Status Date / Time No Known Allergies Allergy Verified 01/25/19 12:44 - Home Medications Home Medications: Ambulatory Orders Aspirin [Aspirin EC] 81 mg PO DAILY 09/12/17 Insulin Aspart [Novolog] 5 unit SQ TID 09/12/17 Albuterol Sulfate Inhaler - [Ventolin Hfa Inhaler -] 1 - 2 inh PO Q4H 09/13/17 Docusate Sodium [Colace -] 100 mg PO DAILY 09/13/17 Folic Acid 1 mg PO DAILY 09/13/17 Furosemide 20 mg PO DAILY 09/13/17 Linaclotide [Linzess] 145 mcg PO DAILY 09/13/17 Meclizine HCl 25 mg PO DAILY 09/13/17 Metoprolol Succinate [Toprol Xl -] 50 mg PO BID 09/13/17 Sodium Bicarbonate 650 mg PO TID 09/13/17 Umeclidinium Brm/Vilanterol Tr [Anoro Ellipta 62.5-25 Mcg INH] 1 each IH DAILY 09/13/17 Atorvastatin Calcium [Lipitor] 10 mg PO DAILY 01/25/19 Icosapent Ethyl [Vascepa] 2 gm PO BID 01/25/19 Insulin Detemir [Levemir Flextouch] 0 unit SQ DAILY 01/25/19 Insulin Glargine,Hum.rec.anlog [Arnoldoaglcarmelita Persaud U-100] 20 unit SQ DAILY Ranolazine [Ranexa] 1,000 mg PO BID 01/25/19 Ticagrelor [Brilinta] 90 mg PO BID 01/25/19 Review of Systems - Review of Systems Constitutional: reports: Weakness. denies: Chills, Fever Eyes: denies: Recent Change in Vision HENT: denies: Nasal Congestion, Throat Pain Neck: denies: Stiffness, Tenderness Cardiovascular: reports: Shortness of Breath. denies: Chest Pain Respiratory: reports: Cough, Wheezing. denies: Hemoptysis Gastrointestinal: denies: Abdominal Pain, Nausea, Vomiting Genitourinary: denies: Dysuria, Hematuria Neurological: denies: Dizziness, Headache Endocrine: denies: Unexplained Weight Loss Physical Exam Vital Sings: Vital Signs Temperature 98.6 F 01/26/19 13:54 Pulse Rate 109 H 01/26/19 13:54 Respiratory Rate 18 01/26/19 13:54 Blood Pressure 103/56 L 01/26/19 13:54 O2 Sat by Pulse Oximetry (%) 96 01/25/19 21:00 Constitutional: Yes: Calm Eyes: Yes: Conjunctiva Clear, EOM Intact HENT: Yes: Atraumatic, Normocephalic Neck: Yes: Supple, Trachea Midline Cardiovascular: Yes: Pulse Irregular Respiratory: Yes: Rhonchi (scattered) ...Clubbing: No Gastrointestinal: Yes: Normal Bowel Sounds, Soft. No: Tenderness Edema: No Neurological: Yes: Alert, Oriented Labs: CBC, BMP 01/26/19 05:30 01/26/19 05:30 Imaging - Results Chest X-ray: Report Reviewed, Image Reviewed (pulmonary vascular congestion) Problem List - Problems (1) Atrial fibrillation with RVR Code(s): I48.91 - UNSPECIFIED ATRIAL FIBRILLATION (2) Atrial flutter Code(s): I48.92 - UNSPECIFIED ATRIAL FLUTTER (3) COPD (chronic obstructive pulmonary disease) Code(s): J44.9 - CHRONIC OBSTRUCTIVE PULMONARY DISEASE, UNSPECIFIED (4) Diabetes Code(s): E11.9 - TYPE 2 DIABETES MELLITUS WITHOUT COMPLICATIONS Qualifiers: Diabetes mellitus type: type 2 (5) Elevated troponin Code(s): R74.8 - ABNORMAL LEVELS OF OTHER SERUM ENZYMES (6) HTN (hypertension) Code(s): I10 - ESSENTIAL (PRIMARY) HYPERTENSION (7) Hypercholesterolemia Code(s): E78.00 - PURE HYPERCHOLESTEROLEMIA, UNSPECIFIED (8) IDDM (insulin dependent diabetes mellitus) Code(s): E11.9 - TYPE 2 DIABETES MELLITUS WITHOUT COMPLICATIONS; Z79.4 - USP (CURRENT) USE OF INSULIN Assessment/Plan Atrial Flutter with RVR Acute on Chronic Diastolic Heart Failure COPD Chronic Hypoxic Respiratory Failure JARET Pulmonary HTN HTN DM Hypercholesterolemia - rate control - continue anticoagulation - continue lasix - monitor urine output, creatinine - O2 to keep SpO2 >90% - inhaled bronchodilators - can defer systemic steroids at this time
[2019-01-26] MEDS: TICAGRELOR 60 MG TABLET PO SCH (21:38)
[2019-01-26] MEDS: ATORVASTATIN CA 10 MG TABLET (FP) PO SCH (21:39)
[2019-01-27] MEDS ORDERED: PT OWN MED DRAWER 7, Y5N ONE ×3 (01:08→21:52)
[2019-01-27 06:01] LABS: BASO % 0.2 % (0-2.0); EOS % 1.3 % (0-4.5); HEMATOCRIT 27.2 % (35.4-49); HEMOGLOBIN 8.8 GM/dL (11.7-16.9); LYMPH % 13.6 % (8-40); MCH 31.9 pg (25.7-33.7); MCHC 32.2 g/dl (32.0-35.9); MEAN CELL VOLUME 99.1 fl (80-96); MEAN PLT VOLUME 9.8 fl (7.5-11.1); MONO % 12.1 % (3.8-10.2); NEUT % 72.8 % (42.8-82.8); PLATELET COUNT 206 K/MM3 (134-434); RBC 2.75 M/mm3 (4.00-5.60); RDW 30.1 % (11.9-15.9)
[2019-01-27] MEDS: INSULIN SLIDING SCALE (NOVOLOG) 1 VIAL SQ SCH ×4 (06:03→22:01)
[2019-01-27 06:28] LABS: ANION GAP 6 MMOL/L (8-16); BLOOD UREA NITROGEN 22 mg/dL (7-18); CALCIUM 8.6 mg/dL (8.5-10.1); CHLORIDE 100 mmol/L (98-107); CO2 28 mmol/L (21-32); CREATININE 1.3 mg/dL (0.55-1.3); GLUCOSE,RANDOM 162 mg/dL (74-106); POTASSIUM 4.4 mmol/L (3.5-5.1); SODIUM 134 mmol/L (136-145)
[2019-01-27 06:58] LABS: SERUM IRON SATURATION 51 % (15-55); TOTAL IRON BINDING CAPACITY 364 ug/dL (250-450); UIBC 178 ug/dL (111-343)
--- NOTE | 2019-01-27 08:45 | PN ---
Progress Note, Physician Chief Complaint: Acute on chronic CHF History of Present Illness: NAD Seen by Cardiology IV diuresis in progress Started on Eliquis, H/H stable Still ST with paced rhythm - Current Medication List Current Medications: Active Medications Albuterol Sulfate (Ventolin 0.083% Nebulizer Soln -) 1 amp NEB Q6H PRN PRN Reason: SHORT OF BREATH/WHEEZING Last Admin: 01/25/19 23:40 Dose: 1 amp Apixaban (Eliquis -) 5 mg PO BID [facility] Last Admin: 01/26/19 21:39 Dose: 5 mg Atorvastatin Calcium (Lipitor -) 10 mg PO HS [facility] Last Admin: 01/26/19 21:39 Dose: 10 mg Folic Acid (Folic Acid -) 1 mg PO DAILY [facility] Last Admin: 01/26/19 09:57 Dose: 1 mg Furosemide (Lasix -) 20 mg PO DAILY [facility] Last Admin: 01/26/19 09:57 Dose: 20 mg Insulin Aspart (Novolog Vial Sliding Scale -) 1 vial SQ ACHS [facility]; Protocol Last Admin: 01/27/19 06:03 Dose: Not Given Meclizine HCl (Antivert -) 25 mg PO DAILY [facility] Last Admin: 01/26/19 09:57 Dose: 25 mg Metoprolol Succinate (Toprol Xl -) 50 mg PO BID [facility] Last Admin: 01/26/19 21:41 Dose: 50 mg Polyethylene Glycol (Miralax (For Daily Use) -) 17 gm PO DAILY [facility] Last Admin: 01/26/19 12:37 Dose: 17 gm Ranolazine (Ranexa -) 1,000 mg PO BID [facility] Last Admin: 01/26/19 21:39 Dose: 1,000 mg Sodium Bicarbonate (Sodium Bicarbonate -) 650 mg PO BID [facility] Last Admin: 01/26/19 21:39 Dose: 650 mg Ticagrelor (Brilinta) 60 mg PO BID [facility] Last Admin: 01/26/19 21:38 Dose: 60 mg Umeclidinium/Vilanterol (Anoro Ellipta 62.5-25 Mcg Inh) 1 puff IH DAILY [facility] Last Admin: 01/26/19 12:37 Dose: 1 puff - Objective Vital Signs: Vital Signs Temperature 97.9 F 01/27/19 05:58 Pulse Rate 108 H 01/27/19 05:58 Respiratory Rate 18 01/27/19 05:58 Blood Pressure 118/69 01/27/19 05:58 O2 Sat by Pulse Oximetry (%) 100 01/26/19 21:00 Constitutional: Yes: Well Nourished, No Distress, Calm Cardiovascular: Yes: Regular Rate and Rhythm Respiratory: Yes: Regular, On Nasal O2 Gastrointestinal: Yes: Normal Bowel Sounds, Soft, Abdomen, Obese Musculoskeletal: Yes: WNL Extremities: Yes: WNL Edema: No Peripheral Pulses WNL: Yes Neurological: Yes: Alert, Oriented Psychiatric: Yes: Alert, Oriented Labs: CBC, BMP 01/27/19 05:30 01/27/19 05:30 INR, PTT INR 1.29 (0.83-1.09) H 01/25/19 13:00 Problem List - Problems (1) Diabetes Code(s): E11.9 - TYPE 2 DIABETES MELLITUS WITHOUT COMPLICATIONS Qualifiers: Diabetes mellitus type: type 2 Assessment/Plan (1) Heart failure Assessment/Plan: -cardiology on board -Furosemide 20mg and Ranexa -1L fluid restriction -daily weights -monitor I&O's Code(s): I50.9 - HEART FAILURE, UNSPECIFIED (2) Atrial fibrillation with RVR Assessment/Plan: -ST on Tele with PPM -cardiology on board -Echo results reviewed-non diagnostic with poor quality -Repeat Echo on Monday -If [place] still uncontrolled, may need cardioversion or ERIKA- Cardiology to lead the decision -Metoprolol 50mg BID -start Eliquis Code(s): I48.91 - UNSPECIFIED ATRIAL FIBRILLATION (3) CKD (chronic kidney disease) Assessment/Plan: -renal consult -BUN/Cr 04/11.2 -monitor renal function daily Code(s): N18.9 - CHRONIC KIDNEY DISEASE, UNSPECIFIED (5) COPD (chronic obstructive pulmonary disease) Assessment/Plan: -pulm consult -O2 via NC -bronchodilators -keep SpO2 >90% Code(s): J44.9 - CHRONIC OBSTRUCTIVE PULMONARY DISEASE, UNSPECIFIED (6) Elevated troponin Assessment/Plan: -elevated 2/2 demand ischemia -trop 0.27 -repeat trop ordered -will monitor for downtrend -cardiology on board Code(s): R74.8 - ABNORMAL LEVELS OF OTHER SERUM ENZYMES
[2019-01-27] MEDS: MECLIZINE HCL 25 MG TABLET (FP) PO SCH (09:55)
[2019-01-27] MEDS: FUROSEMIDE 20 MG TABLET (FP) PO SCH (09:55)
[2019-01-27] MEDS: SODIUM BICARBONATE 650 MG TABLET PO SCH ×2 (09:55→21:58)
[2019-01-27] MEDS: POLYETHYLENE GLYCOL 3350 119 GM BTL PO SCH (09:55)
[2019-01-27] MEDS: RANOLAZINE E.R. 1,000 MG TABLET (FP) PO SCH ×2 (09:55→21:58)
[2019-01-27] MEDS: FOLIC ACID 1 MG TABLET (FP) PO SCH (09:55)
[2019-01-27] MEDS: APIXABAN 5 MG TABLET PO SCH ×2 (09:55→21:58)
[2019-01-27] MEDS: UMECLIDINIUM/VILANTEROL (ANORO) 62.5/25 MCG INHALER IH SCH (09:56)
[2019-01-27] MEDS: TICAGRELOR 60 MG TABLET PO SCH ×2 (09:56→21:59)
--- NOTE | 2019-01-27 09:56 | PN ---
Progress Note, Physician Chief Complaint: Coverage for Drs. Maddox and Avril Appears comfortable Sitting and not in distress History of Present Illness: Patient was seen and examined. Awake and alert. Chart was reviewed Denies chest pain or SOB Atrial flutter - Current Medication List Current Medications: Active Medications Albuterol Sulfate (Ventolin 0.083% Nebulizer Soln -) 1 amp NEB Q6H PRN PRN Reason: SHORT OF BREATH/WHEEZING Last Admin: 01/25/19 23:40 Dose: 1 amp Apixaban (Eliquis -) 5 mg PO BID [facility] Last Admin: 01/26/19 21:39 Dose: 5 mg Atorvastatin Calcium (Lipitor -) 10 mg PO HS [facility] Last Admin: 01/26/19 21:39 Dose: 10 mg Folic Acid (Folic Acid -) 1 mg PO DAILY [facility] Last Admin: 01/26/19 09:57 Dose: 1 mg Furosemide (Lasix -) 20 mg PO DAILY [facility] Last Admin: 01/26/19 09:57 Dose: 20 mg Insulin Aspart (Novolog Vial Sliding Scale -) 1 vial SQ ACHS [facility]; Protocol Last Admin: 01/27/19 06:03 Dose: Not Given Meclizine HCl (Antivert -) 25 mg PO DAILY [facility] Last Admin: 01/26/19 09:57 Dose: 25 mg Metoprolol Succinate (Toprol Xl -) 50 mg PO BID [facility] Last Admin: 01/26/19 21:41 Dose: 50 mg Polyethylene Glycol (Miralax (For Daily Use) -) 17 gm PO DAILY [facility] Last Admin: 01/26/19 12:37 Dose: 17 gm Ranolazine (Ranexa -) 1,000 mg PO BID [facility] Last Admin: 01/26/19 21:39 Dose: 1,000 mg Sodium Bicarbonate (Sodium Bicarbonate -) 650 mg PO BID [facility] Last Admin: 01/26/19 21:39 Dose: 650 mg Ticagrelor (Brilinta) 60 mg PO BID [facility] Last Admin: 01/26/19 21:38 Dose: 60 mg Umeclidinium/Vilanterol (Anoro Ellipta 62.5-25 Mcg Inh) 1 puff IH DAILY [facility] Last Admin: 01/26/19 12:37 Dose: 1 puff - Objective Vital Signs: Vital Signs Temperature 97.9 F 01/27/19 05:58 Pulse Rate 108 H 01/27/19 05:58 Respiratory Rate 18 01/27/19 05:58 Blood Pressure 118/69 01/27/19 05:58 O2 Sat by Pulse Oximetry (%) 100 01/26/19 21:00 Eyes: Yes: PERRL HENT: Yes: Atraumatic Neck: Yes: Supple Cardiovascular: Yes: Tachycardia, Pulse Irregular, S1, S2 Respiratory: Yes: CTA Bilaterally Gastrointestinal: Yes: Normal Bowel Sounds, Soft. No: Tenderness Edema: No Additional Findings/Remarks: - Review of Systems Constitutional: denies: Chills, Fever Cardiovascular: (-) Chest Pain. (+) Palpitations, (-) Shortness of Breath Respiratory: denies Cough. denies: Hemoptysis, Orthopnea, PND, (-) SOB, SOB on Exertion Gastrointestinal: denies: Abdominal Pain, Constipation, Diarrhea, Melena, Nausea , Rectal Bleeding, Vomiting Neurological: denies: Dizziness, Headache, Seizure, Syncope Labs: CBC, BMP 01/27/19 05:30 01/27/19 05:30 INR, PTT INR 1.29 (0.83-1.09) H 01/25/19 13:00 Problem List - Problems (1) Sick sinus syndrome Code(s): I49.5 - SICK SINUS SYNDROME (2) Presence of cardiac pacemaker Code(s): Z95.0 - PRESENCE OF CARDIAC PACEMAKER (3) Hypercholesterolemia Code(s): E78.00 - PURE HYPERCHOLESTEROLEMIA, UNSPECIFIED (4) Atrial flutter Code(s): I48.92 - UNSPECIFIED ATRIAL FLUTTER (5) CKD (chronic kidney disease) Code(s): N18.9 - CHRONIC KIDNEY DISEASE, UNSPECIFIED (6) COPD (chronic obstructive pulmonary disease) Code(s): J44.9 - CHRONIC OBSTRUCTIVE PULMONARY DISEASE, UNSPECIFIED (7) Diabetes Code(s): E11.9 - TYPE 2 DIABETES MELLITUS WITHOUT COMPLICATIONS Qualifiers: Diabetes mellitus type: type 2 (8) HTN (hypertension) Code(s): I10 - ESSENTIAL (PRIMARY) HYPERTENSION Assessment/Plan 1. Atrial flutter with RVR 2. CAD s/p CABG, s/p PCI/GERALD (2013), angina pectoris 3. HTN 4. Hypercholesterolemia 5. DM 6. JARET 7. COPD 8. SSS s/p PPM PLAN: 1. Continue with Eliquis 5 mg BID. Continue Brilinta at 60 mg BID and off ASA 2. Continue Toprol XL 50 mg BID and Ranexa 1000 mg BID 3. Continue Lipitor 10 mg QHS 4. Continue diuretics - Lasix 20 mg QD and monitor renal function and electrolytes 5. If remains in Atrial flutter, may consider synchronized cardioversion with ERIKA guidance 6. Ideally ACEI or ARB if BP permits Further plans are to follow Chris Suggs MD
[2019-01-27 10:11] LABS: ANISOCYTOSIS 2+; MACROCYTOSIS 0; PLATELET ESTIMATE NORMAL; TARGET CELLS 1+; TEAR DROP CELLS 1+
--- NOTE | 2019-01-27 11:02 | PN ---
Progress Note (short form) - Note Progress Note: PULMONARY States breathing better today. Less coughing. No fevers recorded. Heart rates improving. Vital Signs Period Temp Pulse Resp BP Sys/Renteria Pulse Ox Last 24 Hr 97.2 F-98.6 F 107-109 18-18 95-118/52-69 100 Gen: NAD in chair Heart: irregular Lung: decreased breath sounds at the bases Abd: soft, nontender Ext: no edema CBC, BMP 01/27/19 05:30 01/27/19 05:30 Active Medications Albuterol Sulfate (Ventolin 0.083% Nebulizer Soln -) 1 amp NEB Q6H PRN PRN Reason: SHORT OF BREATH/WHEEZING Last Admin: 01/25/19 23:40 Dose: 1 amp Apixaban (Eliquis -) 5 mg PO BID [facility] Last Admin: 01/27/19 09:55 Dose: 5 mg Atorvastatin Calcium (Lipitor -) 10 mg PO HS [facility] Last Admin: 01/26/19 21:39 Dose: 10 mg Folic Acid (Folic Acid -) 1 mg PO DAILY [facility] Last Admin: 01/27/19 09:55 Dose: 1 mg Furosemide (Lasix -) 20 mg PO DAILY [facility] Last Admin: 01/27/19 09:55 Dose: 20 mg Insulin Aspart (Novolog Vial Sliding Scale -) 1 vial SQ ACHS [facility]; Protocol Last Admin: 01/27/19 06:03 Dose: Not Given Meclizine HCl (Antivert -) 25 mg PO DAILY [facility] Last Admin: 01/27/19 09:55 Dose: 25 mg Metoprolol Succinate (Toprol Xl -) 50 mg PO BID [facility] Last Admin: 01/27/19 09:56 Dose: 50 mg Polyethylene Glycol (Miralax (For Daily Use) -) 17 gm PO DAILY [facility] Last Admin: 01/27/19 09:55 Dose: 17 gm Ranolazine (Ranexa -) 1,000 mg PO BID [facility] Last Admin: 01/27/19 09:55 Dose: 1,000 mg Sodium Bicarbonate (Sodium Bicarbonate -) 650 mg PO BID [facility] Last Admin: 01/27/19 09:55 Dose: 650 mg Ticagrelor (Brilinta) 60 mg PO BID [facility] Last Admin: 01/27/19 09:56 Dose: 60 mg Umeclidinium/Vilanterol (Anoro Ellipta 62.5-25 Mcg Inh) 1 puff IH DAILY [facility] Last Admin: 01/27/19 09:56 Dose: 1 puff A/P Atrial Flutter with RVR Acute on Chronic Diastolic Heart Failure COPD Chronic Hypoxic Respiratory Failure JARET Pulmonary HTN HTN DM Hypercholesterolemia - rate control - continue anticoagulation - continue lasix - monitor urine output, creatinine - will order CXR for AM - O2 to keep SpO2 >90% - inhaled bronchodilators - can defer systemic steroids at this time Problem List - Problems (1) Atrial fibrillation with RVR Code(s): I48.91 - UNSPECIFIED ATRIAL FIBRILLATION (2) Atrial flutter Code(s): I48.92 - UNSPECIFIED ATRIAL FLUTTER (3) COPD (chronic obstructive pulmonary disease) Code(s): J44.9 - CHRONIC OBSTRUCTIVE PULMONARY DISEASE, UNSPECIFIED (4) Diabetes Code(s): E11.9 - TYPE 2 DIABETES MELLITUS WITHOUT COMPLICATIONS Qualifiers: Diabetes mellitus type: type 2 (5) Elevated troponin Code(s): R74.8 - ABNORMAL LEVELS OF OTHER SERUM ENZYMES (6) HTN (hypertension) Code(s): I10 - ESSENTIAL (PRIMARY) HYPERTENSION (7) Hypercholesterolemia Code(s): E78.00 - PURE HYPERCHOLESTEROLEMIA, UNSPECIFIED (8) IDDM (insulin dependent diabetes mellitus) Code(s): E11.9 - TYPE 2 DIABETES MELLITUS WITHOUT COMPLICATIONS; 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
[2019-01-27] MEDS ORDERED: ACETAMINOPHEN 325 MG TABLET (FP) PO PRN (15:19)
[2019-01-27] MEDS: ATORVASTATIN CA 10 MG TABLET (FP) PO SCH (21:58)
[2019-01-28 05:45] LABS: BASO % 0.3 % (0-2.0); EOS % 0.8 % (0-4.5); HEMOGLOBIN 8.4 GM/dL (11.7-16.9); MCHC 32.3 g/dl (32.0-35.9); MEAN CELL VOLUME 99.1 fl (80-96); MEAN PLT VOLUME 9.2 fl (7.5-11.1); MONO % 9.9 % (3.8-10.2); PLATELET COUNT 180 K/MM3 (134-434); RBC 2.62 M/mm3 (4.00-5.60); RDW 30.7 % (11.9-15.9); WHITE BLOOD COUNT 9.6 K/mm3 (4.0-10.0)
[2019-01-28 06:16] LABS: ANION GAP 7 MMOL/L (8-16); BLOOD UREA NITROGEN 22 mg/dL (7-18); CALCIUM 8.3 mg/dL (8.5-10.1); CHLORIDE 100 mmol/L (98-107); CO2 28 mmol/L (21-32); CREATININE 1.4 mg/dL (0.55-1.3); GLUCOSE,RANDOM 188 mg/dL (74-106); POTASSIUM 4.5 mmol/L (3.5-5.1); SODIUM 135 mmol/L (136-145)
[2019-01-28] MEDS: INSULIN SLIDING SCALE (NOVOLOG) 1 VIAL SQ SCH ×4 (06:38→21:26)
[2019-01-28] MEDS: ALBUTEROL SO4 0.083% IH SOL 2.5 MG/3 ML VIAL.NEB. NEB PRN (07:57)
[2019-01-28] MEDS: MECLIZINE HCL 25 MG TABLET (FP) PO SCH (10:21)
[2019-01-28] MEDS: POLYETHYLENE GLYCOL 3350 119 GM BTL PO SCH (10:21)
[2019-01-28] MEDS: APIXABAN 5 MG TABLET PO SCH ×2 (10:21→21:25)
[2019-01-28] MEDS: TICAGRELOR 60 MG TABLET PO SCH ×2 (10:21→21:23)
[2019-01-28] MEDS: FOLIC ACID 1 MG TABLET (FP) PO SCH (10:21)
[2019-01-28] MEDS: FUROSEMIDE 20 MG TABLET (FP) PO SCH (10:21)
[2019-01-28] MEDS: SODIUM BICARBONATE 650 MG TABLET PO SCH ×2 (10:21→21:25)
[2019-01-28] MEDS: RANOLAZINE E.R. 1,000 MG TABLET (FP) PO SCH ×2 (10:21→21:22)
[2019-01-28 10:33] LABS: ANISOCYTOSIS 1+; MACROCYTOSIS 1+; OVALOCYTE 1+; PLATELET ESTIMATE NORMAL; TARGET CELLS 1+
--- NOTE | 2019-01-28 12:23 | PN ---
Progress Note, Physician History of Present Illness: The patient is a 73 year old male, with a significant PMH of Anemia, COPD on O2 , sleep apnea, HF, CABG (2004), diabetes, HTN, hypercholesterolemia, and thyroid disease who presents to the emergency department with worsening shortness of breath for the past couple of weeks. The patient states he went to see Dr. Clements, and was advised to come to the ED due to his fast and irregular heart rate. The patient states he endorses mild leg swelling, secondary to his symptoms. The patient denies chest pain, headache or dizziness. The patient denies fever, chills, diarrhea or constipation. The patient denies dysuria, frequency, urgency or hematuria. Allergies: NKDA Past surgical history: Cardiac Surgery (quadruple bypass, stent, pacemaker) Social history: Former smoker (quit 15 years ago). No alcohol use. PCP: Dr. Dashawn Sauceda [place]: Dr. Macario PMH Ongoing medical problems 4 v CABG DOVE to LAD, radial to OM, SVG to Ramus and D1 [facility] s/p L CEA ASHD s/p PCI dRCA Resolute stent April 2013 [facility] distal LM January 2014 Dr. Daniel DM Hyperlipidemia s/p ICD Medtronic single chamber 2009 - Current Medication List Current Medications: Active Medications Acetaminophen (Tylenol -) 650 mg PO Q4H PRN PRN Reason: PAIN OR FEVER Albuterol Sulfate (Ventolin 0.083% Nebulizer Soln -) 1 amp NEB Q6H PRN PRN Reason: SHORT OF BREATH/WHEEZING Last Admin: 01/28/19 07:57 Dose: 1 amp Apixaban (Eliquis -) 5 mg PO BID [facility] Last Admin: 01/28/19 10:21 Dose: 5 mg Atorvastatin Calcium (Lipitor -) 10 mg PO HS [facility] Last Admin: 01/27/19 21:58 Dose: 10 mg Folic Acid (Folic Acid -) 1 mg PO DAILY [facility] Last Admin: 01/28/19 10:21 Dose: 1 mg Furosemide (Lasix -) 20 mg PO DAILY [facility] Last Admin: 01/28/19 10:21 Dose: 20 mg Insulin Aspart (Novolog Vial Sliding Scale -) 1 vial SQ ACHS [facility]; Protocol Last Admin: 01/28/19 11:40 Dose: 2 units Meclizine HCl (Antivert -) 25 mg PO DAILY [facility] Last Admin: 01/28/19 10:21 Dose: 25 mg Metoprolol Succinate (Toprol Xl -) 50 mg PO BID [facility] Last Admin: 01/28/19 10:21 Dose: 50 mg Polyethylene Glycol (Miralax (For Daily Use) -) 17 gm PO DAILY [facility] Last Admin: 01/28/19 10:21 Dose: 17 gm Ranolazine (Ranexa -) 1,000 mg PO BID [facility] Last Admin: 01/28/19 10:21 Dose: 1,000 mg Sodium Bicarbonate (Sodium Bicarbonate -) 650 mg PO BID [facility] Last Admin: 01/28/19 10:21 Dose: 650 mg Ticagrelor (Brilinta) 60 mg PO BID [facility] Last Admin: 01/28/19 10:21 Dose: 60 mg Umeclidinium/Vilanterol (Anoro Ellipta 62.5-25 Mcg Inh) 1 puff IH DAILY [facility] Last Admin: 01/27/19 09:56 Dose: 1 puff - Objective Vital Signs: Vital Signs Temperature 98.2 F 01/28/19 05:00 Pulse Rate 106 H 01/28/19 05:00 Respiratory Rate 18 01/28/19 05:00 Blood Pressure 104/58 L 01/28/19 05:00 O2 Sat by Pulse Oximetry (%) 100 01/27/19 21:00 Eyes: Yes: WNL, Conjunctiva Clear, EOM Intact HENT: Yes: WNL, Atraumatic, Normocephalic Neck: Yes: WNL, Supple, Trachea Midline Cardiovascular: Yes: WNL, Regular Rate and Rhythm Respiratory: Yes: WNL, Regular, CTA Bilaterally Gastrointestinal: Yes: WNL, Normal Bowel Sounds Genitourinary: Yes: WNL Musculoskeletal: Yes: WNL Extremities: Yes: WNL Edema: No Integumentary: Yes: WNL Neurological: Yes: WNL, Alert, Oriented ...Motor Strength: WNL Psychiatric: Yes: WNL Labs: CBC, BMP 01/28/19 05:30 01/28/19 05:30 INR, PTT INR 1.29 (0.83-1.09) H 01/25/19 13:00 Assessment/Plan 1. Atrial flutter with RVR ekg pending 2. CAD s/p CABG, s/p PCI/GERALD (2013), angina pectoris 3. HTN 4. Hypercholesterolemia 5. DM 6. JARET 7. COPD 8. SSS s/p PPM PLAN: 1. Continue with Eliquis 5 mg BID. Continue Brilinta at 60 mg BID and off ASA - it is unclear why patient is on Brilinta. 2. Continue Toprol XL 50 mg BID and Ranexa 1000 mg BID 3. Continue Lipitor 10 mg QHS 4. Continue diuretics - Lasix 20 mg QD and monitor renal function and electrolytes 5. If remains in Atrial flutter, may consider synchronized cardioversion with ERIKA guidance 6. Ideally ACEI or ARB if BP permits
--- NOTE | 2019-01-28 12:24 | PN ---
Progress Note (short form) - Note Progress Note: States breathing feels stable. OOB to chair on NC O2. No fevers recorded. Intake & Output 01/25/19 01/26/19 01/27/19 01/28/19 23:59 23:59 23:59 23:59 Intake Total 100 1035 1300 120 Output Total 700 600 Balance -292 004 3467 120 Weight 224 lb 3.2 oz 223 lb 6.4 oz 226 lb 8 oz Last Vital Signs Temp Pulse Resp BP Pulse Ox 98.2 F 106 H 18 104/58 L 100 01/28/19 05:00 01/28/19 05:00 01/28/19 05:00 01/28/19 05:00 01/27/19 21:00 Active Medications Acetaminophen (Tylenol -) 650 mg PO Q4H PRN PRN Reason: PAIN OR FEVER Albuterol Sulfate (Ventolin 0.083% Nebulizer Soln -) 1 amp NEB Q6H PRN PRN Reason: SHORT OF BREATH/WHEEZING Last Admin: 01/28/19 07:57 Dose: 1 amp Apixaban (Eliquis -) 5 mg PO BID [facility] Last Admin: 01/28/19 10:21 Dose: 5 mg Atorvastatin Calcium (Lipitor -) 10 mg PO HS [facility] Last Admin: 01/27/19 21:58 Dose: 10 mg Folic Acid (Folic Acid -) 1 mg PO DAILY [facility] Last Admin: 01/28/19 10:21 Dose: 1 mg Furosemide (Lasix -) 20 mg PO DAILY [facility] Last Admin: 01/28/19 10:21 Dose: 20 mg Insulin Aspart (Novolog Vial Sliding Scale -) 1 vial SQ ACHS [facility]; Protocol Last Admin: 01/28/19 11:40 Dose: 2 units Meclizine HCl (Antivert -) 25 mg PO DAILY [facility] Last Admin: 01/28/19 10:21 Dose: 25 mg Metoprolol Succinate (Toprol Xl -) 50 mg PO BID [facility] Last Admin: 01/28/19 10:21 Dose: 50 mg Polyethylene Glycol (Miralax (For Daily Use) -) 17 gm PO DAILY [facility] Last Admin: 01/28/19 10:21 Dose: 17 gm Ranolazine (Ranexa -) 1,000 mg PO BID [facility] Last Admin: 01/28/19 10:21 Dose: 1,000 mg Sodium Bicarbonate (Sodium Bicarbonate -) 650 mg PO BID [facility] Last Admin: 01/28/19 10:21 Dose: 650 mg Ticagrelor (Brilinta) 60 mg PO BID [facility] Last Admin: 01/28/19 10:21 Dose: 60 mg Umeclidinium/Vilanterol (Anoro Ellipta 62.5-25 Mcg Inh) 1 puff IH DAILY [facility] Last Admin: 01/27/19 09:56 Dose: 1 puff Gen: NAD in chair Heart: irregular Lung: decreased breath sounds at the bases Abd: soft, nontender Ext: no edema Laboratory Results - last 24 hr 01/27/19 01/27/19 01/28/19 16:33 21:54 05:30 WBC 9.6 RBC 2.62 L Hgb 8.4 L Hct 26.0 L MCV 99.1 H MCH 32.0 MCHC 32.3 RDW 30.7 H Plt Count 180 MPV 9.2 Absolute Neuts (auto) 7.3 Neutrophils % 76.0 Neutrophils % (Manual) 67.0 Band Neutrophils % 5.8 Lymphocytes % 13.0 Lymphocytes % (Manual) 11.6 Monocytes % 9.9 Monocytes % (Manual) 7 Eosinophils % 0.8 Eosinophils % (Manual) 2.9 D Basophils % 0.3 Basophils % (Manual) 0.0 Myelocytes % (Man) 5 H Promyelocytes % (Man) 0 Blast Cells % (Manual) 0 Nucleated RBC % 0 Metamyelocytes 1 Hypochromia 1+ Platelet Estimate Normal Platelet Comment Present Polychromasia 1+ Poikilocytosis 2+ Basophilic Stippling 1+ Anisocytosis 1+ Microcytosis 0 Macrocytosis 1+ Target Cells 1+ Ovalocytes 1+ Sodium Potassium Chloride Carbon Dioxide Anion Gap BUN Creatinine Creat Clearance w eGFR POC Glucometer 206 214 Random Glucose Calcium 01/28/19 01/28/19 01/28/19 05:30 05:44 11:40 WBC RBC Hgb Hct MCV MCH MCHC RDW Plt Count MPV Absolute Neuts (auto) Neutrophils % Neutrophils % (Manual) Band Neutrophils % Lymphocytes % Lymphocytes % (Manual) Monocytes % Monocytes % (Manual) Eosinophils % Eosinophils % (Manual) Basophils % Basophils % (Manual) Myelocytes % (Man) Promyelocytes % (Man) Blast Cells % (Manual) Nucleated RBC % Metamyelocytes Hypochromia Platelet Estimate Platelet Comment Polychromasia Poikilocytosis Basophilic Stippling Anisocytosis Microcytosis Macrocytosis Target Cells Ovalocytes Sodium 135 L Potassium 4.5 Chloride 100 Carbon Dioxide 28 Anion Gap 7 L BUN 22 H Creatinine 1.4 H Creat Clearance w eGFR 49.96 POC Glucometer 180 220 Random Glucose 188 H Calcium 8.3 L A/P Atrial Flutter with RVR Acute on Chronic Diastolic Heart Failure COPD Chronic Hypoxic Respiratory Failure JARET Pulmonary HTN HTN DM Hypercholesterolemia - rate control - continue anticoagulation - continue lasix - monitor urine output, creatinine - will order CXR for AM - O2 to keep SpO2 >90% - inhaled bronchodilators - can defer systemic steroids at this time Problem List - Problems (1) Atrial fibrillation with RVR Code(s): I48.91 - UNSPECIFIED ATRIAL FIBRILLATION (2) Atrial flutter Code(s): I48.92 - UNSPECIFIED ATRIAL FLUTTER (3) COPD (chronic obstructive pulmonary disease) Code(s): J44.9 - CHRONIC OBSTRUCTIVE PULMONARY DISEASE, UNSPECIFIED (4) Diabetes Code(s): E11.9 - TYPE 2 DIABETES MELLITUS WITHOUT COMPLICATIONS Qualifiers: Diabetes mellitus type: type 2 (5) Elevated troponin Code(s): R74.8 - ABNORMAL LEVELS OF OTHER SERUM ENZYMES (6) HTN (hypertension) Code(s): I10 - ESSENTIAL (PRIMARY) HYPERTENSION (7) Hypercholesterolemia Code(s): E78.00 - PURE HYPERCHOLESTEROLEMIA, UNSPECIFIED (8) IDDM (insulin dependent diabetes mellitus) Code(s): E11.9 - TYPE 2 DIABETES MELLITUS WITHOUT COMPLICATIONS; Z79.4 - CUSTOMER TRAINER (CURRENT) USE OF INSULIN A/P Atrial Flutter with RVR Acute on Chronic Diastolic Heart Failure COPD Chronic Hypoxic Respiratory Failure JARET Pulmonary HTN HTN DM Hypercholesterolemia - rate control - AC - Lasix - monitor urine output, creatinine - O2 to keep SpO2 >90% - inhaled bronchodilators - can defer systemic steroids - No Pulmonary contraindication for D?C with continuation of home meds Dr Teran
--- NOTE | 2019-01-28 12:31 | PN ---
Progress Note, Physician Chief Complaint: patient seen and examined no chest pain ,complaining of leg swelling erica give him iv lasix today - Current Medication List Current Medications: Active Medications Acetaminophen (Tylenol -) 650 mg PO Q4H PRN PRN Reason: PAIN OR FEVER Albuterol Sulfate (Ventolin 0.083% Nebulizer Soln -) 1 amp NEB Q6H PRN PRN Reason: SHORT OF BREATH/WHEEZING Last Admin: 01/28/19 07:57 Dose: 1 amp Apixaban (Eliquis -) 5 mg PO BID [facility] Last Admin: 01/28/19 10:21 Dose: 5 mg Atorvastatin Calcium (Lipitor -) 10 mg PO HS [facility] Last Admin: 01/27/19 21:58 Dose: 10 mg Folic Acid (Folic Acid -) 1 mg PO DAILY [facility] Last Admin: 01/28/19 10:21 Dose: 1 mg Furosemide (Lasix -) 20 mg PO DAILY [facility] Last Admin: 01/28/19 10:21 Dose: 20 mg Furosemide (Lasix Injection -) 40 mg IVPUSH ONCE ONE Stop: 01/28/19 12:26 Insulin Aspart (Novolog Vial Sliding Scale -) 1 vial SQ [facility]; Protocol Last Admin: 01/28/19 11:40 Dose: 2 units Meclizine HCl (Antivert -) 25 mg PO DAILY [facility] Last Admin: 01/28/19 10:21 Dose: 25 mg Metoprolol Succinate (Toprol Xl -) 50 mg PO BID [facility] Last Admin: 01/28/19 10:21 Dose: 50 mg Polyethylene Glycol (Miralax (For Daily Use) -) 17 gm PO DAILY [facility] Last Admin: 01/28/19 10:21 Dose: 17 gm Ranolazine (Ranexa -) 1,000 mg PO BID [facility] Last Admin: 01/28/19 10:21 Dose: 1,000 mg Sodium Bicarbonate (Sodium Bicarbonate -) 650 mg PO BID [facility] Last Admin: 01/28/19 10:21 Dose: 650 mg Ticagrelor (Brilinta) 60 mg PO BID [facility] Last Admin: 01/28/19 10:21 Dose: 60 mg Umeclidinium/Vilanterol (Anoro Ellipta 62.5-25 Mcg Inh) 1 puff IH DAILY [facility] Last Admin: 01/27/19 09:56 Dose: 1 puff - Objective Vital Signs: Vital Signs Temperature 98.2 F 01/28/19 05:00 Pulse Rate 106 H 01/28/19 05:00 Respiratory Rate 18 01/28/19 05:00 Blood Pressure 104/58 L 01/28/19 05:00 O2 Sat by Pulse Oximetry (%) 100 01/27/19 21:00 Constitutional: Yes: Calm Cardiovascular: Yes: Regular Rate and Rhythm, S1, S2 Respiratory: Yes: Diminished Gastrointestinal: Yes: Normal Bowel Sounds, Soft, Abdomen, Obese Edema: Yes Neurological: Yes: Alert, Oriented Labs: CBC, BMP 01/28/19 05:30 01/28/19 05:30 INR, PTT INR 1.29 (0.83-1.09) H 01/25/19 13:00 Problem List - Problems (1) Leg edema Assessment/Plan: on po lasix will give iv lasix today Code(s): R60.0 - LOCALIZED EDEMA (2) Atrial fibrillation with RVR Assessment/Plan: metoprolol 50mg bid eliquis brlinta 60mg bid Code(s): I48.91 - UNSPECIFIED ATRIAL FIBRILLATION (3) COPD (chronic obstructive pulmonary disease) Assessment/Plan: bronchodilators oxygen via nasal canula Code(s): J44.9 - CHRONIC OBSTRUCTIVE PULMONARY DISEASE, UNSPECIFIED (4) Anemia Assessment/Plan: iron panel h/h been stable this admission Code(s): D64.9 - ANEMIA, UNSPECIFIED (5) CAD (coronary artery disease) Assessment/Plan: toprol,lipitor,aspiin Code(s): I25.10 - ATHSCL HEART DISEASE OF [place] CORONARY ARTERY W/O ANG PCTRS
[2019-01-28] MEDS: UMECLIDINIUM/VILANTEROL (ANORO) 62.5/25 MCG INHALER IH SCH (12:41)
[2019-01-28] MEDS ORDERED: FUROSEMIDE 40 MG/4 ML INJECTABLE VIAL IVPUSH ONE (12:45)
--- NOTE | 2019-01-28 15:51 | PN ---
Progress Note (short form) - Note Progress Note: after iv lasix patient seen leg swelling better he is wheezing on exam plan nebulizer lasix iv daily and stop po lasix cxr Problem List - Problems (1) Leg edema Code(s): R60.0 - LOCALIZED EDEMA (2) Atrial fibrillation with RVR Code(s): I48.91 - UNSPECIFIED ATRIAL FIBRILLATION (3) COPD (chronic obstructive pulmonary disease) Code(s): J44.9 - CHRONIC OBSTRUCTIVE PULMONARY DISEASE, UNSPECIFIED (4) Anemia Code(s): D64.9 - ANEMIA, UNSPECIFIED (5) CAD (coronary artery disease) Code(s): I25.10 - ATHSCL HEART DISEASE OF [place] CORONARY ARTERY W/O ANG PCTRS
[2019-01-28] MEDS: ATORVASTATIN CA 10 MG TABLET (FP) PO SCH (21:24)
[2019-01-29] MEDS: FUROSEMIDE 40 MG/4 ML INJECTABLE VIAL IVPUSH SCH ×2 (06:27→13:52)
[2019-01-29] MEDS: INSULIN SLIDING SCALE (NOVOLOG) 1 VIAL SQ SCH ×4 (06:28→21:29)
[2019-01-29 06:36] LABS: BASO % 0.2 % (0-2.0); EOS % 0.8 % (0-4.5); HEMOGLOBIN 8.3 GM/dL (11.7-16.9); LYMPH % 11.1 % (8-40); MCH 32.7 pg (25.7-33.7); MCHC 33.2 g/dl (32.0-35.9); MEAN CELL VOLUME 98.5 fl (80-96); MEAN PLT VOLUME 9.9 fl (7.5-11.1); MONO % 9.9 % (3.8-10.2); PLATELET COUNT 181 K/MM3 (134-434); RBC 2.54 M/mm3 (4.00-5.60); RDW 29.7 % (11.9-15.9); WHITE BLOOD COUNT 8.6 K/mm3 (4.0-10.0)
[2019-01-29 07:20] LABS: ANION GAP 4 MMOL/L (8-16); BLOOD UREA NITROGEN 23 mg/dL (7-18); CALCIUM 8.6 mg/dL (8.5-10.1); CHLORIDE 98 mmol/L (98-107); CO2 30 mmol/L (21-32); CREATININE 1.4 mg/dL (0.55-1.3); GLUCOSE,RANDOM 201 mg/dL (74-106); POTASSIUM 4.4 mmol/L (3.5-5.1); SODIUM 133 mmol/L (136-145)
--- NOTE | 2019-01-29 08:21 | PN ---
Progress Note, Physician - Current Medication List Current Medications: Active Medications Acetaminophen (Tylenol -) 650 mg PO Q4H PRN PRN Reason: PAIN OR FEVER Last Admin: 01/28/19 22:19 Dose: 650 mg Albuterol Sulfate (Ventolin 0.083% Nebulizer Soln -) 1 amp NEB Q6H PRN PRN Reason: SHORT OF BREATH/WHEEZING Last Admin: 01/28/19 07:57 Dose: 1 amp Apixaban (Eliquis -) 5 mg PO BID [facility] Last Admin: 01/28/19 21:25 Dose: 5 mg Atorvastatin Calcium (Lipitor -) 10 mg PO HS [facility] Last Admin: 01/28/19 21:24 Dose: 10 mg Folic Acid (Folic Acid -) 1 mg PO DAILY [facility] Last Admin: 01/28/19 10:21 Dose: 1 mg Furosemide (Lasix Injection -) 40 mg IVPUSH BID@0600,1400 [facility] Last Admin: 01/29/19 06:27 Dose: 40 mg Insulin Aspart (Novolog Vial Sliding Scale -) 1 vial SQ ACHS [facility]; Protocol Last Admin: 01/29/19 06:28 Dose: Not Given Meclizine HCl (Antivert -) 25 mg PO DAILY [facility] Last Admin: 01/28/19 10:21 Dose: 25 mg Metoprolol Succinate (Toprol Xl -) 50 mg PO BID [facility] Last Admin: 01/28/19 21:25 Dose: 50 mg Polyethylene Glycol (Miralax (For Daily Use) -) 17 gm PO DAILY [facility] Last Admin: 01/28/19 10:21 Dose: 17 gm Ranolazine (Ranexa -) 1,000 mg PO BID [facility] Last Admin: 01/28/19 21:22 Dose: 1,000 mg Sodium Bicarbonate (Sodium Bicarbonate -) 650 mg PO BID [facility] Last Admin: 01/28/19 21:25 Dose: 650 mg Ticagrelor (Brilinta) 60 mg PO BID [facility] Last Admin: 01/28/19 21:23 Dose: 60 mg Umeclidinium/Vilanterol (Anoro Ellipta 62.5-25 Mcg Inh) 1 puff IH DAILY [facility] Last Admin: 01/28/19 12:41 Dose: Not Given - Objective Vital Signs: Vital Signs Temperature 97.6 F 01/29/19 06:00 Pulse Rate 108 H 01/29/19 06:00 Respiratory Rate 18 01/29/19 06:00 Blood Pressure 112/71 01/29/19 06:00 O2 Sat by Pulse Oximetry (%) 100 01/28/19 21:00 Cardiovascular: Yes: Tachycardia, Pulse Irregular, S1, S2 Respiratory: Yes: Rales Gastrointestinal: Yes: Normal Bowel Sounds, Soft Edema: Yes Neurological: Yes: Alert, Oriented Labs: CBC, BMP 01/29/19 05:30 01/29/19 05:30 INR, PTT INR 1.29 (0.83-1.09) H 01/25/19 13:00 Assessment/Plan - Problems (1) Leg edema Assessment/Plan: on iv lasix monitor lytes Code(s): R60.0 - LOCALIZED EDEMA (2) Atrial fibrillation with RVR Assessment/Plan: metoprolol 50mg bid eliquis brlinta 60mg bid cardio on board Code(s): I48.91 - UNSPECIFIED ATRIAL FIBRILLATION (3) COPD (chronic obstructive pulmonary disease) Assessment/Plan: bronchodilators oxygen via nasal canula Code(s): J44.9 - CHRONIC OBSTRUCTIVE PULMONARY DISEASE, UNSPECIFIED (4) Anemia Assessment/Plan: iron panel h/h been stable this admission Code(s): D64.9 - ANEMIA, UNSPECIFIED (5) CAD (coronary artery disease) Assessment/Plan: toprol,lipitor,aspiin Code(s): I25.10 - ATHSCL HEART DISEASE OF [place] CORONARY ARTERY W/O ANG PCTRS
[2019-01-29] MEDS ORDERED: ELTROMBOPAG PO SCH (10:00)
[2019-01-29 10:17] LABS: ANISOCYTOSIS 2+; MACROCYTOSIS 1+; OVALOCYTE 2+; PLATELET ESTIMATE NORMAL; TEAR DROP CELLS 1+
[2019-01-29] MEDS: UMECLIDINIUM/VILANTEROL (ANORO) 62.5/25 MCG INHALER IH SCH (10:38)
[2019-01-29] MEDS: SODIUM BICARBONATE 650 MG TABLET PO SCH ×2 (10:41→21:23)
[2019-01-29] MEDS: APIXABAN 5 MG TABLET PO SCH ×2 (10:41→21:23)
[2019-01-29] MEDS: FOLIC ACID 1 MG TABLET (FP) PO SCH (10:41)
[2019-01-29] MEDS: RANOLAZINE E.R. 1,000 MG TABLET (FP) PO SCH ×2 (10:41→21:23)
[2019-01-29] MEDS: MECLIZINE HCL 25 MG TABLET (FP) PO SCH (10:41)
[2019-01-29] MEDS: POLYETHYLENE GLYCOL 3350 119 GM BTL PO SCH (10:42)
[2019-01-29] MEDS: TICAGRELOR 60 MG TABLET PO SCH ×2 (10:42→21:23)
--- NOTE | 2019-01-29 11:01 | EKG ---
Test Reason : Blood Pressure : / mmHG Vent. Rate : 110 BPM Atrial Rate : 218 BPM P-R Int : 000 ms QRS Dur : 098 ms QT Int : 316 ms P-R-T Axes : 265 054 174 degrees QTc Int : 427 ms ATRIAL FLUTTER WITH VARIABLE A-V BLOCK NONSPECIFIC ST AND T WAVE ABNORMALITY ABNORMAL ECG WHEN COMPARED WITH ECG OF 25-JAN-2019 12:23, NO SIGNIFICANT CHANGE WAS FOUND Confirmed by MD Aj, Blake ([id number]) on 01/29/2019 11:01:18 AM Referred By: RYANN JAVED Confirmed By:Blake Rocha MD
--- NOTE | 2019-01-29 11:08 | PN ---
Progress Note, Physician History of Present Illness: PULMONARY ALERT,OOB-CHAIR,LESS DYSPNEIC - Current Medication List Current Medications: Active Medications Acetaminophen (Tylenol -) 650 mg PO Q4H PRN PRN Reason: PAIN OR FEVER Last Admin: 01/28/19 22:19 Dose: 650 mg Albuterol Sulfate (Ventolin 0.083% Nebulizer Soln -) 1 amp NEB Q6H PRN PRN Reason: SHORT OF BREATH/WHEEZING Last Admin: 01/28/19 07:57 Dose: 1 amp Apixaban (Eliquis -) 5 mg PO BID [facility] Last Admin: 01/29/19 10:41 Dose: 5 mg Atorvastatin Calcium (Lipitor -) 10 mg PO HS [facility] Last Admin: 01/28/19 21:24 Dose: 10 mg Folic Acid (Folic Acid -) 1 mg PO DAILY [facility] Last Admin: 01/29/19 10:41 Dose: 1 mg Furosemide (Lasix Injection -) 40 mg IVPUSH BID@0600,1400 [facility] Last Admin: 01/29/19 06:27 Dose: 40 mg Insulin Aspart (Novolog Vial Sliding Scale -) 1 vial SQ ACHS [facility]; Protocol Last Admin: 01/29/19 06:28 Dose: Not Given Meclizine HCl (Antivert -) 25 mg PO DAILY [facility] Last Admin: 01/29/19 10:41 Dose: 25 mg Metoprolol Succinate (Toprol Xl -) 50 mg PO BID [facility] Last Admin: 01/29/19 10:41 Dose: 50 mg Polyethylene Glycol (Miralax (For Daily Use) -) 17 gm PO DAILY [facility] Last Admin: 01/29/19 10:42 Dose: 17 gm Ranolazine (Ranexa -) 1,000 mg PO BID [facility] Last Admin: 01/29/19 10:41 Dose: 1,000 mg Sodium Bicarbonate (Sodium Bicarbonate -) 650 mg PO BID [facility] Last Admin: 01/29/19 10:41 Dose: 650 mg Ticagrelor (Brilinta) 60 mg PO BID [facility] Last Admin: 01/29/19 10:42 Dose: 60 mg Umeclidinium/Vilanterol (Anoro Ellipta 62.5-25 Mcg Inh) 1 puff IH DAILY [facility] Last Admin: 01/29/19 10:38 Dose: 1 puff - Objective Vital Signs: Vital Signs Temperature 98.6 F 01/29/19 09:19 Pulse Rate 111 H 01/29/19 09:19 Respiratory Rate 18 01/29/19 09:19 Blood Pressure 104/58 L 01/29/19 09:19 O2 Sat by Pulse Oximetry (%) 100 01/28/19 21:00 Constitutional: Yes: Well Nourished, Calm Eyes: Yes: WNL HENT: Yes: WNL, Tonsillar Exudate Cardiovascular: Yes: Pulse Irregular, S1, S2 Respiratory: Yes: Rales (BILATERAL RALES) Gastrointestinal: Yes: Normal Bowel Sounds, Soft Extremities: Yes: WNL Edema: Yes Labs: CBC, BMP 01/29/19 05:30 01/29/19 05:30 INR, PTT INR 1.29 (0.83-1.09) H 01/25/19 13:00 - ....Imaging Cat Scan: Report Reviewed, Image Reviewed Assessment/Plan A/P Atrial Flutter with RVR Acute on Chronic Diastolic Heart Failure improving COPD Chronic Hypoxic Respiratory Failure JARET Pulmonary HTN HTN DM Hypercholesterolemia - rate control - continue anticoagulation - continue IV lasix - monitor urine output, creatinine - O2 to keep SpO2 >90% - inhaled bronchodilators Problem List - Problems (1) Atrial fibrillation with RVR Code(s): I48.91 - UNSPECIFIED ATRIAL FIBRILLATION (2) Atrial flutter Code(s): I48.92 - UNSPECIFIED ATRIAL FLUTTER (3) COPD (chronic obstructive pulmonary disease) Code(s): J44.9 - CHRONIC OBSTRUCTIVE PULMONARY DISEASE, UNSPECIFIED (4) Diabetes Code(s): E11.9 - TYPE 2 DIABETES MELLITUS WITHOUT COMPLICATIONS Qualifiers: Diabetes mellitus type: type 2 (5) Elevated troponin Code(s): R74.8 - ABNORMAL LEVELS OF OTHER SERUM ENZYMES (6) HTN (hypertension) Code(s): I10 - ESSENTIAL (PRIMARY) HYPERTENSION (7) Hypercholesterolemia Code(s): E78.00 - PURE HYPERCHOLESTEROLEMIA, UNSPECIFIED (8) IDDM (insulin dependent diabetes mellitus) Code(s): E11.9 - TYPE 2 DIABETES MELLITUS WITHOUT COMPLICATIONS; Z79.4 - SHELTER (CURRENT) USE OF INSULIN
--- NOTE | 2019-01-29 11:09 | EKG ---
Test Reason : Blood Pressure : / mmHG Vent. Rate : 110 BPM Atrial Rate : 220 BPM P-R Int : 000 ms QRS Dur : 100 ms QT Int : 168 ms P-R-T Axes : 256 051 000 degrees QTc Int : 227 ms ATRIAL FLUTTER WITH VARIABLE A-V BLOCK NONSPECIFIC ST AND T WAVE ABNORMALITY ABNORMAL ECG WHEN COMPARED WITH ECG OF 28-JAN-2019 13:56, QT HAS SHORTENED Confirmed by MD Aj, Blake ([id number]) on 01/29/2019 11:09:21 AM Referred By: Cele MCFARLAND Confirmed By:Blake Rocha MD
--- NOTE | 2019-01-29 14:34 | PN ---
Progress Note, Physician Chief Complaint: Pt A&Ox3; OOB in chair; no chest pain or palpitations; dyspnea on mild exertion ; + mild bilateral LE pitting edema ((legs are not elevated).His son is visiting. History of Present Illness: The patient is a 73 year old male, with a significant PMH of Anemia, COPD on O2 , sleep apnea, HF, CABG (2004), diabetes, HTN, hypercholesterolemia, and thyroid disease who presents to the emergency department with worsening shortness of breath for the past couple of weeks. The patient states he went to see Dr. Clements, and was advised to come to the ED due to his fast and irregular heart rate. The patient states he endorses mild leg swelling, secondary to his symptoms. The patient denies chest pain, headache or dizziness. The patient denies fever, chills, diarrhea or constipation. The patient denies dysuria, frequency, urgency or hematuria. Allergies: NKDA Past surgical history: Cardiac Surgery (quadruple bypass, stent, pacemaker) Social history: Former smoker (quit 15 years ago). No alcohol use. PCP: Dr. Dashawn Sauceda Television Tube Inspector: Dr. Macario - Current Medication List Current Medications: Active Medications Acetaminophen (Tylenol -) 650 mg PO Q4H PRN PRN Reason: PAIN OR FEVER Last Admin: 01/28/19 22:19 Dose: 650 mg Albuterol Sulfate (Ventolin 0.083% Nebulizer Soln -) 1 amp NEB Q6H PRN PRN Reason: SHORT OF BREATH/WHEEZING Last Admin: 01/28/19 07:57 Dose: 1 amp Apixaban (Eliquis -) 5 mg PO BID [facility] Last Admin: 01/29/19 10:41 Dose: 5 mg Atorvastatin Calcium (Lipitor -) 10 mg PO HS [facility] Last Admin: 01/28/19 21:24 Dose: 10 mg Folic Acid (Folic Acid -) 1 mg PO DAILY [facility] Last Admin: 01/29/19 10:41 Dose: 1 mg Furosemide (Lasix Injection -) 40 mg IVPUSH BID@0600,1400 [facility] Last Admin: 01/29/19 13:52 Dose: 40 mg Insulin Aspart (Novolog Vial Sliding Scale -) 1 vial SQ ACHS [facility]; Protocol Last Admin: 01/29/19 11:46 Dose: 4 units Meclizine HCl (Antivert -) 25 mg PO DAILY [facility] Last Admin: 01/29/19 10:41 Dose: 25 mg Metoprolol Succinate (Toprol Xl -) 50 mg PO BID [facility] Last Admin: 01/29/19 10:41 Dose: 50 mg Polyethylene Glycol (Miralax (For Daily Use) -) 17 gm PO DAILY [facility] Last Admin: 01/29/19 10:42 Dose: 17 gm Ranolazine (Ranexa -) 1,000 mg PO BID [facility] Last Admin: 01/29/19 10:41 Dose: 1,000 mg Sodium Bicarbonate (Sodium Bicarbonate -) 650 mg PO BID [facility] Last Admin: 01/29/19 10:41 Dose: 650 mg Ticagrelor (Brilinta) 60 mg PO BID [facility] Last Admin: 01/29/19 10:42 Dose: 60 mg Umeclidinium/Vilanterol (Anoro Ellipta 62.5-25 Mcg Inh) 1 puff IH DAILY [facility] Last Admin: 01/29/19 10:38 Dose: 1 puff - Objective Vital Signs: Vital Signs Temperature 98.6 F 01/29/19 09:19 Pulse Rate 111 H 01/29/19 09:19 Respiratory Rate 18 01/29/19 09:19 Blood Pressure 104/58 L 01/29/19 09:19 O2 Sat by Pulse Oximetry (%) 100 01/28/19 21:00 Constitutional: Yes: Calm Eyes: Yes: WNL Cardiovascular: Yes: S1, S2 Respiratory: Yes: Regular Labs: CBC, BMP 01/29/19 05:30 01/29/19 05:30 INR, PTT INR 1.29 (0.83-1.09) H 01/25/19 13:00 Problem List - Problems (1) Atrial flutter Assessment/Plan: Pt , with son at bedside, does not want electrical or pharmacologic cardioversion. Increase metoprolol ER to 75 mg bid. Will follow pt for future EP evaluation for possible ablation Rx. Continue apixaban. Code(s): I48.92 - UNSPECIFIED ATRIAL FLUTTER (2) COPD (chronic obstructive pulmonary disease) Code(s): J44.9 - CHRONIC OBSTRUCTIVE PULMONARY DISEASE, UNSPECIFIED (3) Diabetes Code(s): E11.9 - TYPE 2 DIABETES MELLITUS WITHOUT COMPLICATIONS Qualifiers: Diabetes mellitus type: type 2 (4) Elevated troponin Assessment/Plan: 0.27-->0.25. EKG: atrial flutter; no acute STT changes. ECHo: normal LVEF; mildly dilated LV and LA. Demand ischemia from atrial flutter, CHF. Coronary artery evaluastion when stable (stress mIBI in 2016: no ischemia; ? old anterior and inferior injuries). Code(s): R74.8 - ABNORMAL LEVELS OF OTHER SERUM ENZYMES (5) HTN (hypertension) Code(s): I10 - ESSENTIAL (PRIMARY) HYPERTENSION (6) Hypercholesterolemia Assessment/Plan: lipid levels well-controlled; on atorvastatin 10 mg daily. Code(s): E78.00 - PURE HYPERCHOLESTEROLEMIA, UNSPECIFIED (7) Leg edema Code(s): R60.0 - LOCALIZED EDEMA (8) Presence of cardiac pacemaker Assessment/Plan: scheulted for f/u of PPM end of January (estimated several months of battery life remaining). Code(s): Z95.0 - PRESENCE OF CARDIAC PACEMAKER (9) Pulmonary nodules Assessment/Plan: CTA chest: mild pleural effusion; pulmonary nodules (f/u CTA in 2-3 weeks recommended); COPD Code(s): R91.8 - OTHER NONSPECIFIC ABNORMAL FINDING OF LUNG FIELD (10) Sleep apnea Assessment/Plan: On CPAP at home (though son says he stopped it because he felt it was "putting fluid into his lungs"). F/u with head machine feeder. Code(s): G47.30 - SLEEP APNEA, UNSPECIFIED (11) Myocardial infarct, old Assessment/Plan: 2004-->CABG; pt quit smoking at that time. Code(s): I25.2 - OLD MYOCARDIAL INFARCTION (12) History of heart artery stent Assessment/Plan: 2004 [place]-->CABG 2014: DEStent of the Left Main ([facility]); planned for RPDA stent, but did not return Pt reports having ? 2 more stents at ?[facility] in 2016. Pharmacy reports him having Brilinta 90 mg bid represcribed 10/2018; also on ASA 81 mg daily. Code(s): Z95.5 - PRESENCE OF CORONARY ANGIOPLASTY IMPLANT AND GRAFT (13) Pneumonia Assessment/Plan: Findings on CTA suggestive of PNA; initially elevated WBCs (on steroids). Code(s): J18.9 - PNEUMONIA, UNSPECIFIED ORGANISM (14) (HFpEF) heart failure with preserved ejection fraction Assessment/Plan: On metoprolol. Add ACEi (HTN; DM; HFpEF). Code(s): I50.30 - UNSPECIFIED DIASTOLIC (CONGESTIVE) HEART FAILURE
--- NOTE | 2019-01-29 15:23 | CONSULT ---
Consultation: REQUESTING PROVIDER: CONSULT REQUEST: We have been asked to medically evaluate this patient for heme/ onc. HISTORY OF PRESENT ILLNESS: 73 y/o M w/PMH of anemia, COPD (on home O2), JARET, CHF, CAD (s/p CABG 2014), DM, HTN, HLD, recently diagnosed leukemia (2018) presented to the ER with SOB for a couple of weeks and was found to be in Aflutter. He currently feels better in regards to his presenting symptoms. He was diagnosed with leukemia after a bone marrow biopsy was obtained last year for "low blood counts" on his outpatient labs. He has been following with Dr. Perry Torre for oncology at [facility] and has been on a experimental medication - eltrombopag which he states has been helping. He also reports needing frequent transfusions. PMH: anemia, COPD (on home O2), JARET, CHF, CAD (s/p CABG 2014), DM, HTN, HLD, recently diagnosed leukemia (2018) PSHx: CABG 2014 (4 vessel), pacemaker placement SH: Former smoker, quit 14 years ago, smoked 44 years approx 1 ppd. No alcohol or drug use. 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 FH: Denies any cancer or heme disorders in family Allergies: NKDA REVIEW OF SYSTEMS: CONSTITUTIONAL: Absent: fever, chills CARDIOVASCULAR: Absent: chest pain RESPIRATORY: Absent: cough, shortness of breath GASTROINTESTINAL: Absent: abdominal pain,nausea, vomiting GENITOURINARY: Absent: dysuria NEUROLOGIC: Absent: headache PHYSICAL EXAMINATION Vital Signs - 24 hr 01/28/19 01/28/19 01/29/19 21:00 22:00 01:52 Temperature 98.4 F 97.6 F Pulse Rate 112 H 107 H Respiratory 18 18 Rate Blood Pressure 111/62 114/67 O2 Sat by Pulse 100 Oximetry (%) 01/29/19 01/29/19 06:00 09:19 Temperature 97.6 F 98.6 F Pulse Rate 108 H 111 H Respiratory 18 18 Rate Blood Pressure 112/71 104/58 L O2 Sat by Pulse Oximetry (%) GENERAL: Awake, alert, and fully oriented, in no acute distress. HEAD: Normal with no signs of trauma. EYES: Strabismus L eye EARS, NOSE, THROAT: Ears normal, nares patent NECK: Normal range of motion, supple without lymphadenopathy. LUNGS: b/l wheezing HEART: Tachycardic, regular rhythm, systolic murmur ABDOMEN: Soft, nontender, not distended, normoactive bowel sounds LOWER EXTREMITIES: warm, well-perfused. No peripheral edema. NEUROLOGICAL: Cranial nerves II-XII grossly intact. Normal speech. Normal gait. PSYCHIATRIC: Cooperative. Good eye contact. Appropriate mood and affect. SKIN: Warm, dry. TESITCULAR: No testicular lesions or masses noted. Nontender to palpation. Laboratory Results - last 24 hr 01/28/19 01/28/19 01/29/19 17:10 21:21 05:30 WBC 8.6 RBC 2.54 L Hgb 8.3 L Hct 25.0 L MCV 98.5 H MCH 32.7 MCHC 33.2 RDW 29.7 H Plt Count 181 MPV 9.9 Absolute Neuts (auto) 6.7 Neutrophils % 78.0 Neutrophils % (Manual) 84.9 H D Band Neutrophils % 3.0 Lymphocytes % 11.1 Lymphocytes % (Manual) 5.1 L D Monocytes % 9.9 Monocytes % (Manual) 3 L Eosinophils % 0.8 Eosinophils % (Manual) 2.0 Basophils % 0.2 Basophils % (Manual) 0.0 Myelocytes % (Man) 1 D Promyelocytes % (Man) 0 Blast Cells % (Manual) 0 Nucleated RBC % 0 Metamyelocytes 0 D Hypochromia 1+ Platelet Estimate Normal Platelet Comment Present Polychromasia 2+ Poikilocytosis 2+ Basophilic Stippling 1+ Anisocytosis 2+ Microcytosis 1+ Macrocytosis 1+ Tear Drop Cells 1+ Ovalocytes 2+ Stomatocytes 1+ Acanthocytes (Spur) 2+ Sodium Potassium Chloride Carbon Dioxide Anion Gap BUN Creatinine Creat Clearance w eGFR POC Glucometer 254 247 Random Glucose Calcium Ferritin 01/29/19 01/29/19 01/29/19 05:30 06:26 11:45 WBC RBC Hgb Hct MCV MCH MCHC RDW Plt Count MPV Absolute Neuts (auto) Neutrophils % Neutrophils % (Manual) Band Neutrophils % Lymphocytes % Lymphocytes % (Manual) Monocytes % Monocytes % (Manual) Eosinophils % Eosinophils % (Manual) Basophils % Basophils % (Manual) Myelocytes % (Man) Promyelocytes % (Man) Blast Cells % (Manual) Nucleated RBC % Metamyelocytes Hypochromia Platelet Estimate Platelet Comment Polychromasia Poikilocytosis Basophilic Stippling Anisocytosis Microcytosis Macrocytosis Tear Drop Cells Ovalocytes Stomatocytes Acanthocytes (Spur) Sodium 133 L Potassium 4.4 Chloride 98 Carbon Dioxide 30 Anion Gap 4 L BUN 23 H Creatinine 1.4 H Creat Clearance w eGFR 49.96 POC Glucometer 199 251 Random Glucose 201 H Calcium 8.6 Ferritin 1009.7 H Active Medications Generic Name Dose Route Start Last Admin Trade Name Freq PRN Reason Stop Dose Admin Acetaminophen 650 mg 01/27/19 15:19 01/28/19 22:19 Tylenol - PO 650 mg Q4H PRN Administration PAIN OR FEVER Albuterol Sulfate 1 amp 01/25/19 17:32 01/28/19 07:57 Ventolin 0.083% Nebulizer Soln - NEB 1 amp Q6H PRN Administration SHORT OF BREATH/WHEEZING Apixaban 5 mg 01/26/19 10:00 01/29/19 10:41 Eliquis - PO 5 mg BID [facility] Administration Atorvastatin Calcium 10 mg 01/25/19 22:00 01/28/19 21:24 Lipitor - PO 10 mg HS [facility] Administration Folic Acid 1 mg 01/26/19 10:00 01/29/19 10:41 Folic Acid - PO 1 mg DAILY [facility] Administration Furosemide 40 mg 01/29/19 06:00 01/29/19 13:52 Lasix Injection - IVPUSH 40 mg BID@0600,1400 [facility] Administration Insulin Aspart 1 vial 01/25/19 22:00 01/29/19 11:46 Novolog Vial Sliding Scale - SQ 4 units ACHS [facility] Administration Protocol Meclizine HCl 25 mg 01/26/19 10:00 01/29/19 10:41 Antivert - PO 25 mg DAILY [facility] Administration Metoprolol Succinate 50 mg 01/25/19 22:00 01/29/19 10:41 Toprol Xl - PO 50 mg BID [facility] Administration Polyethylene Glycol 17 gm 01/26/19 10:00 01/29/19 10:42 Miralax (For Daily Use) - PO 17 gm DAILY [facility] Administration Ranolazine 1,000 mg 01/25/19 22:00 01/29/19 10:41 Ranexa - PO 1,000 mg BID [facility] Administration Sodium Bicarbonate 650 mg 01/25/19 22:00 01/29/19 10:41 Sodium Bicarbonate - PO 650 mg BID [facility] Administration Ticagrelor 60 mg 01/26/19 10:38 01/29/19 10:42 Brilinta PO 60 mg BID [facility] Administration Umeclidinium/Vilanterol 1 puff 01/26/19 10:00 01/29/19 10:38 Anoro Ellipta 62.5-25 Mcg Inh IH 1 puff DAILY [facility] Administration ASSESSMENT/PLAN: 73 y/o M w/PMH of anemia, COPD (on home O2), JARET, CHF, CAD (s/p CABG 2014), DM, HTN, HLD, recently diagnosed ?leukemia (2018) presented to the ER with SOB for a couple of weeks and was found to be in Aflutter. Heme consulted for anemia. -Anemia (macrocytic) -Iron studies pending. Ferritin high. -Monitor CBC -According to paperwork he has he may have hx of MDS. -Has close follow up with Dr. Perry Torre at [facility]. -Pt will need to continue f/u with Dr. Torre. No further w/u at this time. -Leukemia vs MDS -Pt reports being follow by Dr. Perry Torre at [facility] -Is on eltrombopag, held currently. -will need close f/u with his oncologist on discharge Dispo: We will continue to follow the patient. Thank you for this consultative opportunity. Visit type - Emergency Visit Emergency Visit: Yes ED Registration Date: 01/25/19 Care time: The patient presented to the Emergency Department on the above date and was hospitalized for further evaluation of their emergent condition. - New Patient This patient is new to me today: Yes Date on this admission: 01/29/19 - Critical Care Critical Care patient: No
[2019-01-29] MEDS ORDERED: metoPROLOL SUCCINATE 25 MG TAB.SR.24H (FP) PO ONE (15:26)
--- NOTE | 2019-01-29 18:34 | PN ---
Teaching Attending Note Name of Resident: Patrick Chávez ATTENDING PHYSICIAN STATEMENT I saw and evaluated the patient. I reviewed the resident's note and discussed the case with the resident. I agree with the resident's findings and plan as documented. SUBJECTIVE: Patient seen and examined Followed at [facility]. To speak with Dr. Torre at [facility]. On Promacta for thrombocytopenia. Platelet count currently normal. Leukoerythroblastic blood picture. Last Vital Signs Temp Pulse Resp BP Pulse Ox 99.0 F 80 18 112/60 100 01/29/19 16:21 01/29/19 16:21 01/29/19 14:35 01/29/19 16:21 01/29/19 10:00 HEENT: JODY, EOM Intact Oropharynx: No thrush, No mucositis Cor: RSR, systolic murmur Lungs: rales bases Abd: Soft, Normal bowel sounds, No organomegaly Ext:1-2+ LE edema edema Skin: No rashes, Integument intact 01/29/19 05:30 01/29/19 05:30 Current Medications Generic Name Dose Route Start Last Admin Trade Name Freq PRN Reason Stop Dose Admin Acetaminophen 650 mg 01/27/19 15:19 01/28/19 22:19 Tylenol - PO 650 mg Q4H PRN Administration PAIN OR FEVER Albuterol Sulfate 1 amp 01/25/19 17:32 01/28/19 07:57 Ventolin 0.083% Nebulizer Soln - NEB 1 amp Q6H PRN Administration SHORT OF BREATH/WHEEZING Apixaban 5 mg 01/26/19 10:00 01/29/19 10:41 Eliquis - PO 5 mg BID [facility] Administration Atorvastatin Calcium 10 mg 01/25/19 22:00 01/28/19 21:24 Lipitor - PO 10 mg HS [facility] Administration Folic Acid 1 mg 01/26/19 10:00 01/29/19 10:41 Folic Acid - PO 1 mg DAILY [facility] Administration Furosemide 40 mg 01/29/19 06:00 01/29/19 13:52 Lasix Injection - IVPUSH 40 mg BID@0600,1400 [facility] Administration Insulin Aspart 1 vial 01/25/19 22:00 01/29/19 16:18 Novolog Vial Sliding Scale - SQ 2 units ACHS [facility] Administration Protocol Meclizine HCl 25 mg 01/26/19 10:00 01/29/19 10:41 Antivert - PO 25 mg DAILY [facility] Administration Metoprolol Succinate 75 mg 01/29/19 22:00 Toprol Xl - PO BID [facility] Polyethylene Glycol 17 gm 01/26/19 10:00 01/29/19 10:42 Miralax (For Daily Use) - PO 17 gm DAILY [facility] Administration Ranolazine 1,000 mg 01/25/19 22:00 01/29/19 10:41 Ranexa - PO 1,000 mg BID [facility] Administration Sodium Bicarbonate 650 mg 01/25/19 22:00 01/29/19 10:41 Sodium Bicarbonate - PO 650 mg BID [facility] Administration Ticagrelor 60 mg 01/26/19 10:38 01/29/19 10:42 Brilinta PO 60 mg BID [facility] Administration Umeclidinium/Vilanterol 1 puff 01/26/19 10:00 01/29/19 10:38 Anoro Ellipta 62.5-25 Mcg Inh IH 1 puff DAILY [facility] Administration OBJECTIVE: Impression: New onset - atrial flutter Pulmonary nodules Anemia \?MDS Plan : To monitor and for hematology follow up at [facility] upon discharge ASSESSMENT AND PLAN:
[2019-01-29] MEDS: ATORVASTATIN CA 10 MG TABLET (FP) PO SCH (21:23)
[2019-01-30 04:15] LABS: SERUM IRON SATURATION 52 % (15-55); TOTAL IRON BINDING CAPACITY 321 ug/dL (250-450); UIBC 154 ug/dL (111-343)
[2019-01-30] MEDS: FUROSEMIDE 40 MG/4 ML INJECTABLE VIAL IVPUSH SCH ×3 (05:23→15:08)
[2019-01-30] MEDS: INSULIN SLIDING SCALE (NOVOLOG) 1 VIAL SQ SCH ×4 (06:15→22:07)
[2019-01-30 06:55] LABS: BASO % 0.4 % (0-2.0); EOS % 0.9 % (0-4.5); HEMOGLOBIN 7.9 GM/dL (11.7-16.9); LYMPH % 12.1 % (8-40); MCH 32.2 pg (25.7-33.7); MCHC 32.8 g/dl (32.0-35.9); MEAN PLT VOLUME 9.7 fl (7.5-11.1); NEUT % 75.6 % (42.8-82.8); PLATELET COUNT 188 K/MM3 (134-434); RBC 2.45 M/mm3 (4.00-5.60); RDW 30.4 % (11.9-15.9); WHITE BLOOD COUNT 7.9 K/mm3 (4.0-10.0)
[2019-01-30 07:18] LABS: ALBUMIN 3.5 g/dl (3.4-5.0); ALK PHOS 51 U/L (45-117); ANION GAP 4 MMOL/L (8-16); BILIRUBIN,TOTAL 1.2 mg/dL (0.2-1); BLOOD UREA NITROGEN 22 mg/dL (7-18); CALCIUM 8.8 mg/dL (8.5-10.1); CHLORIDE 97 mmol/L (98-107); CO2 31 mmol/L (21-32); CREATININE 1.5 mg/dL (0.55-1.3); GLUCOSE,RANDOM 262 mg/dL (74-106); POTASSIUM 4.4 mmol/L (3.5-5.1); SGOT/AST 16 U/L (15-37); SGPT/ALT 17 U/L (13-61); SODIUM 132 mmol/L (136-145); TOT PROT 7.3 g/dl (6.4-8.2)
--- NOTE | 2019-01-30 08:52 | PN ---
Progress Note, Physician - Current Medication List Current Medications: Active Medications Acetaminophen (Tylenol -) 650 mg PO Q4H PRN PRN Reason: PAIN OR FEVER Last Admin: 01/28/19 22:19 Dose: 650 mg Albuterol Sulfate (Ventolin 0.083% Nebulizer Soln -) 1 amp NEB Q6H PRN PRN Reason: SHORT OF BREATH/WHEEZING Last Admin: 01/28/19 07:57 Dose: 1 amp Apixaban (Eliquis -) 5 mg PO BID [facility] Last Admin: 01/29/19 21:23 Dose: 5 mg Atorvastatin Calcium (Lipitor -) 10 mg PO HS [facility] Last Admin: 01/29/19 21:23 Dose: 10 mg Folic Acid (Folic Acid -) 1 mg PO DAILY [facility] Last Admin: 01/29/19 10:41 Dose: 1 mg Insulin Aspart (Novolog Vial Sliding Scale -) 1 vial SQ ACHS [facility]; Protocol Last Admin: 01/30/19 06:15 Dose: 4 units Meclizine HCl (Antivert -) 25 mg PO DAILY [facility] Last Admin: 01/29/19 10:41 Dose: 25 mg Metoprolol Succinate (Toprol Xl -) 75 mg PO BID [facility] Last Admin: 01/29/19 21:23 Dose: 75 mg Polyethylene Glycol (Miralax (For Daily Use) -) 17 gm PO DAILY [facility] Last Admin: 01/29/19 10:42 Dose: 17 gm Ranolazine (Ranexa -) 1,000 mg PO BID [facility] Last Admin: 01/29/19 21:23 Dose: 1,000 mg Sodium Bicarbonate (Sodium Bicarbonate -) 650 mg PO BID [facility] Last Admin: 01/29/19 21:23 Dose: 650 mg Ticagrelor (Brilinta) 60 mg PO BID [facility] Last Admin: 01/29/19 21:23 Dose: 60 mg Umeclidinium/Vilanterol (Anoro Ellipta 62.5-25 Mcg Inh) 1 puff IH DAILY [facility] Last Admin: 01/29/19 10:38 Dose: 1 puff - Objective Vital Signs: Vital Signs Temperature 97.2 F L 01/30/19 05:53 Pulse Rate 101 H 01/30/19 05:53 Respiratory Rate 20 01/29/19 22:00 Blood Pressure 102/56 L 01/30/19 05:53 O2 Sat by Pulse Oximetry (%) 98 01/30/19 05:05 Cardiovascular: Yes: S1, S2 Respiratory: Yes: Regular, CTA Bilaterally Gastrointestinal: Yes: Normal Bowel Sounds, Soft Edema: Yes Labs: CBC, BMP 01/30/19 06:00 01/30/19 06:00 INR, PTT INR 1.29 (0.83-1.09) H 01/25/19 13:00 Assessment/Plan - Problems (1) Leg edema Assessment/Plan: on iv lasix to 60 bid monitor lytes Code(s): R60.0 - LOCALIZED EDEMA (2) Atrial fibrillation with RVR Assessment/Plan: metoprolol 50mg bid eliquis brlinta 60mg bid cardio on board Code(s): I48.91 - UNSPECIFIED ATRIAL FIBRILLATION (3) COPD (chronic obstructive pulmonary disease) Assessment/Plan: bronchodilators oxygen via nasal canula Code(s): J44.9 - CHRONIC OBSTRUCTIVE PULMONARY DISEASE, UNSPECIFIED (4) Anemia Assessment/Plan: iron panel Transfuse prbc h/h been stable this admission Code(s): D64.9 - ANEMIA, UNSPECIFIED (5) CAD (coronary artery disease) Assessment/Plan: toprol,lipitor,aspiin Code(s): I25.10 - ATHSCL HEART DISEASE OF [place] CORONARY ARTERY W/O ANG PCTRS
[2019-01-30 10:13] LABS: ANISOCYTOSIS 1+; MACROCYTOSIS 1+; PLATELET ESTIMATE NORMAL; TARGET CELLS 1+; TEAR DROP CELLS 1+
--- NOTE | 2019-01-30 10:34 | EKG ---
Test Reason : Blood Pressure : / mmHG Vent. Rate : 106 BPM Atrial Rate : 214 BPM P-R Int : 000 ms QRS Dur : 096 ms QT Int : 394 ms P-R-T Axes : 254 044 187 degrees QTc Int : 523 ms ATRIAL FLUTTER WITH VARIABLE A-V BLOCK NONSPECIFIC ST AND T WAVE ABNORMALITY PROLONGED QT ABNORMAL ECG WHEN COMPARED WITH ECG OF 29-JAN-2019 09:18, ST LESS DEPRESSED IN INFERIOR LEADS QT HAS LENGTHENED Confirmed by GRACE ASKEW, FRANCISCO ([id number]) on 01/30/2019 10:34:37 AM Referred By: HOWIE WEBBER DR Confirmed By:FRANCISCO EDWARDS MD
--- NOTE | 2019-01-30 10:37 | PN ---
Progress Note, Physician History of Present Illness: The patient is a 73 year old male, with a significant PMH of Anemia, COPD on O2 , sleep apnea, HF, CABG (2004), diabetes, HTN, hypercholesterolemia, and thyroid disease who presents to the emergency department with worsening shortness of breath for the past couple of weeks. The patient states he went to see Dr. Clements, and was advised to come to the ED due to his fast and irregular heart rate. The patient states he endorses mild leg swelling, secondary to his symptoms. The patient denies chest pain, headache or dizziness. The patient denies fever, chills, diarrhea or constipation. The patient denies dysuria, frequency, urgency or hematuria. Allergies: NKDA Past surgical history: Cardiac Surgery (quadruple bypass, stent, pacemaker) Social history: Former smoker (quit 15 years ago). No alcohol use. PCP: Dr. 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 Macario PMH Ongoing medical problems 4 v CABG DOVE to LAD, radial to OM, SVG to Ramus and D1 [facility] s/p L CEA ASHD s/p PCI dRCA Resolute stent April 2013 [facility] distal LM January 2014 Dr. Daniel DM Hyperlipidemia s/p ICD Medtronic single chamber 2009 - Current Medication List Current Medications: Active Medications Acetaminophen (Tylenol -) 650 mg PO Q4H PRN PRN Reason: PAIN OR FEVER Last Admin: 01/28/19 22:19 Dose: 650 mg Albuterol Sulfate (Ventolin 0.083% Nebulizer Soln -) 1 amp NEB Q6H PRN PRN Reason: SHORT OF BREATH/WHEEZING Last Admin: 01/28/19 07:57 Dose: 1 amp Apixaban (Eliquis -) 5 mg PO BID [facility] Last Admin: 01/29/19 21:23 Dose: 5 mg Atorvastatin Calcium (Lipitor -) 10 mg PO HS [facility] Last Admin: 01/29/19 21:23 Dose: 10 mg Folic Acid (Folic Acid -) 1 mg PO DAILY [facility] Last Admin: 01/29/19 10:41 Dose: 1 mg Furosemide (Lasix Injection -) 60 mg IVPUSH BID@0600,1400 [facility] Insulin Aspart (Novolog Vial Sliding Scale -) 1 vial SQ ACHS [facility]; Protocol Last Admin: 01/30/19 06:15 Dose: 4 units Meclizine HCl (Antivert -) 25 mg PO DAILY [facility] Last Admin: 01/29/19 10:41 Dose: 25 mg Metoprolol Succinate (Toprol Xl -) 75 mg PO BID [facility] Last Admin: 01/29/19 21:23 Dose: 75 mg Polyethylene Glycol (Miralax (For Daily Use) -) 17 gm PO DAILY [facility] Last Admin: 01/29/19 10:42 Dose: 17 gm Ranolazine (Ranexa -) 1,000 mg PO BID [facility] Last Admin: 01/29/19 21:23 Dose: 1,000 mg Sodium Bicarbonate (Sodium Bicarbonate -) 650 mg PO BID [facility] Last Admin: 01/29/19 21:23 Dose: 650 mg Ticagrelor (Brilinta) 60 mg PO BID [facility] Last Admin: 01/29/19 21:23 Dose: 60 mg Umeclidinium/Vilanterol (Anoro Ellipta 62.5-25 Mcg Inh) 1 puff IH DAILY [facility] Last Admin: 01/29/19 10:38 Dose: 1 puff - Objective Vital Signs: Vital Signs Temperature 97.2 F L 01/30/19 05:53 Pulse Rate 101 H 01/30/19 05:53 Respiratory Rate 20 01/29/19 22:00 Blood Pressure 102/56 L 01/30/19 05:53 O2 Sat by Pulse Oximetry (%) 98 01/30/19 05:05 Eyes: Yes: WNL, Conjunctiva Clear, EOM Intact HENT: Yes: WNL, Atraumatic, Normocephalic Neck: Yes: WNL, Supple, Trachea Midline Cardiovascular: Yes: WNL, Regular Rate and Rhythm Respiratory: Yes: WNL, Regular, CTA Bilaterally Gastrointestinal: Yes: WNL, Normal Bowel Sounds Genitourinary: Yes: WNL Musculoskeletal: Yes: WNL Extremities: Yes: WNL Edema: No Integumentary: Yes: WNL Neurological: Yes: WNL, Alert, Oriented ...Motor Strength: WNL Psychiatric: Yes: WNL Labs: CBC, BMP 01/30/19 06:00 01/30/19 06:00 INR, PTT INR 1.29 (0.83-1.09) H 01/25/19 13:00 Assessment/Plan - Problems (1) Atrial flutter Assessment/Plan: Pt , with son at bedside, does not want electrical or pharmacologic cardioversion. Increase metoprolol ER to 75 mg bid. Will follow pt for future EP evaluation for possible ablation Rx. Continue apixaban. Code(s): I48.92 - UNSPECIFIED ATRIAL FLUTTER (2) COPD (chronic obstructive pulmonary disease) Code(s): J44.9 - CHRONIC OBSTRUCTIVE PULMONARY DISEASE, UNSPECIFIED (3) Diabetes Code(s): E11.9 - TYPE 2 DIABETES MELLITUS WITHOUT COMPLICATIONS Qualifiers: Diabetes mellitus type: type 2 (4) Elevated troponin Assessment/Plan: 0.27-->0.25. EKG: atrial flutter; no acute STT changes. ECHo: normal LVEF; mildly dilated LV and LA. Demand ischemia from atrial flutter, CHF. Coronary artery evaluastion when stable (stress mIBI in 2016: no ischemia; ? old anterior and inferior injuries). Code(s): R74.8 - ABNORMAL LEVELS OF OTHER SERUM ENZYMES (5) HTN (hypertension) Code(s): I10 - ESSENTIAL (PRIMARY) HYPERTENSION (6) Hypercholesterolemia Assessment/Plan: lipid levels well-controlled; on atorvastatin 10 mg daily. Code(s): E78.00 - PURE HYPERCHOLESTEROLEMIA, UNSPECIFIED (7) Leg edema Code(s): R60.0 - LOCALIZED EDEMA (8) Presence of cardiac pacemaker Assessment/Plan: scheulted for f/u of PPM end of January (estimated several months of battery life remaining). Code(s): Z95.0 - PRESENCE OF CARDIAC PACEMAKER (9) Pulmonary nodules Assessment/Plan: CTA chest: mild pleural effusion; pulmonary nodules (f/u CTA in 2-3 weeks recommended); COPD Code(s): R91.8 - OTHER NONSPECIFIC ABNORMAL FINDING OF LUNG FIELD (10) Sleep apnea Assessment/Plan: On CPAP at home (though son says he stopped it because he felt it was "putting fluid into his lungs"). 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 Code(s): G47.30 - SLEEP APNEA, UNSPECIFIED (11) Myocardial infarct, old Assessment/Plan: 2004-->CABG; pt quit smoking at that time. Code(s): I25.2 - OLD MYOCARDIAL INFARCTION (12) History of heart artery stent Assessment/Plan: 2004 [place]-->CABG 2014: [facility] of the Left Main ([facility]); planned for RPDA stent, but did not return Pt reports having ? 2 more stents at [facility]. Pharmacy reports him having Brilinta 90 mg bid represcribed 10/2018; also on ASA 81 mg daily. Code(s): Z95.5 - PRESENCE OF CORONARY ANGIOPLASTY IMPLANT AND GRAFT (13) Pneumonia Assessment/Plan: Findings on CTA suggestive of PNA; initially elevated WBCs (on steroids). Code(s): J18.9 - PNEUMONIA, UNSPECIFIED ORGANISM (14) (HFpEF) heart failure with preserved ejection fraction Assessment/Plan: On metoprolol. Add ACEi (HTN; DM; HFpEF). Code(s): I50.30 - UNSPECIFIED DIASTOLIC (CONGESTIVE) HEART FAILURE
[2019-01-30] MEDS ORDERED: PT OWN MED DRAWER 7, Y5N ONE ×2 (10:54→21:59)
[2019-01-30] MEDS: SODIUM BICARBONATE 650 MG TABLET PO SCH ×2 (10:58→22:09)
[2019-01-30] MEDS: MECLIZINE HCL 25 MG TABLET (FP) PO SCH (10:59)
[2019-01-30] MEDS: APIXABAN 5 MG TABLET PO SCH ×2 (10:59→22:08)
[2019-01-30] MEDS: FOLIC ACID 1 MG TABLET (FP) PO SCH (11:00)
[2019-01-30] MEDS: RANOLAZINE E.R. 1,000 MG TABLET (FP) PO SCH ×2 (11:00→22:08)
[2019-01-30] MEDS: POLYETHYLENE GLYCOL 3350 119 GM BTL PO SCH (11:00)
[2019-01-30] MEDS: TICAGRELOR 60 MG TABLET PO SCH ×2 (11:00→22:08)
[2019-01-30] MEDS: UMECLIDINIUM/VILANTEROL (ANORO) 62.5/25 MCG INHALER IH SCH (11:05)
--- NOTE | 2019-01-30 11:48 | PN ---
Progress Note, Physician History of Present Illness: pulmonary alert,oob-chair,-cp,-sob - Current Medication List Current Medications: Active Medications Acetaminophen (Tylenol -) 650 mg PO Q4H PRN PRN Reason: PAIN OR FEVER Last Admin: 01/28/19 22:19 Dose: 650 mg Albuterol Sulfate (Ventolin 0.083% Nebulizer Soln -) 1 amp NEB Q6H PRN PRN Reason: SHORT OF BREATH/WHEEZING Last Admin: 01/28/19 07:57 Dose: 1 amp Apixaban (Eliquis -) 5 mg PO BID [facility] Last Admin: 01/30/19 10:59 Dose: 5 mg Atorvastatin Calcium (Lipitor -) 10 mg PO HS [facility] Last Admin: 01/29/19 21:23 Dose: 10 mg Folic Acid (Folic Acid -) 1 mg PO DAILY [facility] Last Admin: 01/30/19 11:00 Dose: 1 mg Furosemide (Lasix Injection -) 60 mg IVPUSH BID@0600,1400 [facility] Last Admin: 01/30/19 10:58 Dose: 60 mg Insulin Aspart (Novolog Vial Sliding Scale -) 1 vial SQ [facility]; Protocol Last Admin: 01/30/19 06:15 Dose: 4 units Meclizine HCl (Antivert -) 25 mg PO DAILY [facility] Last Admin: 01/30/19 10:59 Dose: 25 mg Metoprolol Succinate (Toprol Xl -) 75 mg PO BID [facility] Last Admin: 01/30/19 11:01 Dose: 75 mg Polyethylene Glycol (Miralax (For Daily Use) -) 17 gm PO DAILY [facility] Last Admin: 01/30/19 11:00 Dose: 17 gm Ranolazine (Ranexa -) 1,000 mg PO BID [facility] Last Admin: 01/30/19 11:00 Dose: 1,000 mg Sodium Bicarbonate (Sodium Bicarbonate -) 650 mg PO BID [facility] Last Admin: 01/30/19 10:58 Dose: 650 mg Ticagrelor (Brilinta) 60 mg PO BID [facility] Last Admin: 01/30/19 11:00 Dose: 60 mg Umeclidinium/Vilanterol (Anoro Ellipta 62.5-25 Mcg Inh) 1 puff IH DAILY [facility] Last Admin: 01/30/19 11:05 Dose: 1 puff - Objective Vital Signs: Vital Signs Temperature 98 F 01/30/19 11:11 Pulse Rate 109 H 01/30/19 11:11 Respiratory Rate 20 01/30/19 11:11 Blood Pressure 111/55 L 01/30/19 11:11 O2 Sat by Pulse Oximetry (%) 99 01/30/19 10:50 Constitutional: Yes: Well Nourished, Calm Eyes: Yes: WNL HENT: Yes: WNL Neck: Yes: WNL Cardiovascular: Yes: Regular Rate and Rhythm, S1, S2 Respiratory: Yes: Rales (bibasilar crackles) Gastrointestinal: Yes: Normal Bowel Sounds, Soft Extremities: Yes: WNL Edema: No Labs: CBC, BMP 01/30/19 06:00 01/30/19 06:00 INR, PTT INR 1.29 (0.83-1.09) H 01/25/19 13:00 Assessment/Plan A/P Atrial Flutter with RVR Acute on Chronic Diastolic Heart Failure improving COPD Chronic Hypoxic Respiratory Failure JARET Pulmonary HTN HTN DM Hypercholesterolemia - rate control - continue anticoagulation - IV lasix - monitor urine output, creatinine - O2 to keep SpO2 >90% - inhaled bronchodilators Problem List - Problems (1) Atrial fibrillation with RVR Code(s): I48.91 - UNSPECIFIED ATRIAL FIBRILLATION (2) Atrial flutter Code(s): I48.92 - UNSPECIFIED ATRIAL FLUTTER (3) COPD (chronic obstructive pulmonary disease) Code(s): J44.9 - CHRONIC OBSTRUCTIVE PULMONARY DISEASE, UNSPECIFIED (4) Diabetes Code(s): E11.9 - TYPE 2 DIABETES MELLITUS WITHOUT COMPLICATIONS Qualifiers: Diabetes mellitus type: type 2 (5) Elevated troponin Code(s): R74.8 - ABNORMAL LEVELS OF OTHER SERUM ENZYMES (6) HTN (hypertension) Code(s): I10 - ESSENTIAL (PRIMARY) HYPERTENSION (7) Hypercholesterolemia Code(s): E78.00 - PURE HYPERCHOLESTEROLEMIA, UNSPECIFIED (8) IDDM (insulin dependent diabetes mellitus) Code(s): E11.9 - TYPE 2 DIABETES MELLITUS WITHOUT COMPLICATIONS; Z79.4 - RETIREMENT (CURRENT) USE OF INSULIN
--- NOTE | 2019-01-30 14:27 | PN ---
Physical Exam: SUBJECTIVE: Patient seen and examined at bedside. No new complaints. OBJECTIVE: Vital Signs Period Temp Pulse Resp BP Sys/Renteria Pulse Ox Last 24 Hr 97.2 F-99.0 F 80-114 18-20 102-133/55-73 98-99 GENERAL: Awake, alert, and fully oriented, in no acute distress. HEAD: Normal with no signs of trauma. EYES: Strabismus L eye EARS, NOSE, THROAT: Ears normal, nares patent NECK: Normal range of motion, supple without lymphadenopathy. LUNGS: b/l wheezing HEART: Tachycardic, regular rhythm, systolic murmur ABDOMEN: Soft, nontender, not distended, normoactive bowel sounds LOWER EXTREMITIES: warm, well-perfused. No peripheral edema. NEUROLOGICAL: Cranial nerves II-XII grossly intact. Normal speech. Normal gait. PSYCHIATRIC: Cooperative. Good eye contact. Appropriate mood and affect. SKIN: Warm, dry. Laboratory Results - last 24 hr 01/29/19 01/29/19 01/29/19 05:30 16:17 21:25 WBC RBC Hgb Hct MCV MCH MCHC RDW Plt Count MPV Absolute Neuts (auto) Neutrophils % Neutrophils % (Manual) Band Neutrophils % Lymphocytes % Lymphocytes % (Manual) Monocytes % Monocytes % (Manual) Eosinophils % Eosinophils % (Manual) Basophils % Basophils % (Manual) Myelocytes % (Man) Promyelocytes % (Man) Blast Cells % (Manual) Nucleated RBC % Metamyelocytes Hypochromia Platelet Estimate Polychromasia Poikilocytosis Basophilic Stippling Anisocytosis Microcytosis Macrocytosis Spherocytes Target Cells Tear Drop Cells Stomatocytes Sodium Potassium Chloride Carbon Dioxide Anion Gap BUN Creatinine Creat Clearance w eGFR POC Glucometer 228 275 Random Glucose Calcium Iron 167 TIBC 321 Iron Saturation 52 Total Bilirubin AST ALT Alkaline Phosphatase Total Protein Albumin Blood Type Antibody Screen Crossmatch 01/30/19 01/30/19 01/30/19 05:25 06:00 06:00 WBC 7.9 RBC 2.45 L Hgb 7.9 L Hct 24.0 L MCV 98.0 H MCH 32.2 MCHC 32.8 RDW 30.4 H Plt Count 188 MPV 9.7 Absolute Neuts (auto) 6.0 Neutrophils % 75.6 Neutrophils % (Manual) 69.7 Band Neutrophils % 3.1 Lymphocytes % 12.1 Lymphocytes % (Manual) 18.2 D Monocytes % 11.0 H Monocytes % (Manual) 2 L Eosinophils % 0.9 Eosinophils % (Manual) 2.0 Basophils % 0.4 Basophils % (Manual) 0.0 Myelocytes % (Man) 3 H D Promyelocytes % (Man) 0 Blast Cells % (Manual) 0 Nucleated RBC % 0 Metamyelocytes 0 Hypochromia 1+ Platelet Estimate Normal Polychromasia 1+ Poikilocytosis 2+ Basophilic Stippling 1+ Anisocytosis 1+ Microcytosis 1+ Macrocytosis 1+ Spherocytes 2+ Target Cells 1+ Tear Drop Cells 1+ Stomatocytes 1+ Sodium 132 L Potassium 4.4 Chloride 97 L Carbon Dioxide 31 Anion Gap 4 L BUN 22 H Creatinine 1.5 H Creat Clearance w eGFR 46.13 POC Glucometer 270 Random Glucose 262 H Calcium 8.8 Iron TIBC Iron Saturation Total Bilirubin 1.2 H AST 16 ALT 17 Alkaline Phosphatase 51 Total Protein 7.3 Albumin 3.5 Blood Type Antibody Screen Crossmatch 01/30/19 01/30/19 10:53 12:06 WBC RBC Hgb Hct MCV MCH MCHC RDW Plt Count MPV Absolute Neuts (auto) Neutrophils % Neutrophils % (Manual) Band Neutrophils % Lymphocytes % Lymphocytes % (Manual) Monocytes % Monocytes % (Manual) Eosinophils % Eosinophils % (Manual) Basophils % Basophils % (Manual) Myelocytes % (Man) Promyelocytes % (Man) Blast Cells % (Manual) Nucleated RBC % Metamyelocytes Hypochromia Platelet Estimate Polychromasia Poikilocytosis Basophilic Stippling Anisocytosis Microcytosis Macrocytosis Spherocytes Target Cells Tear Drop Cells Stomatocytes Sodium Potassium Chloride Carbon Dioxide Anion Gap BUN Creatinine Creat Clearance w eGFR POC Glucometer 258 Random Glucose Calcium Iron TIBC Iron Saturation Total Bilirubin AST ALT Alkaline Phosphatase Total Protein Albumin Blood Type A POSITIVE Antibody Screen Positive Crossmatch See Detail Active Medications Generic Name Dose Route Start Last Admin Trade Name Freq PRN Reason Stop Dose Admin Acetaminophen 650 mg 01/27/19 15:19 01/28/19 22:19 Tylenol - PO 650 mg Q4H PRN Administration PAIN OR FEVER Albuterol Sulfate 1 amp 01/25/19 17:32 01/28/19 07:57 Ventolin 0.083% Nebulizer Soln - NEB 1 amp Q6H PRN Administration SHORT OF BREATH/WHEEZING Apixaban 5 mg 01/26/19 10:00 01/30/19 10:59 Eliquis - PO 5 mg BID [facility] Administration Atorvastatin Calcium 10 mg 01/25/19 22:00 01/29/19 21:23 Lipitor - PO 10 mg HS [facility] Administration Folic Acid 1 mg 01/26/19 10:00 01/30/19 11:00 Folic Acid - PO 1 mg DAILY [facility] Administration Furosemide 60 mg 01/30/19 09:15 01/30/19 10:58 Lasix Injection - IVPUSH 60 mg BID@0600,1400 [facility] Administration Insulin Aspart 1 vial 01/25/19 22:00 01/30/19 12:07 Novolog Vial Sliding Scale - SQ 4 units ACHS [facility] Administration Protocol Meclizine HCl 25 mg 01/26/19 10:00 01/30/19 10:59 Antivert - PO 25 mg DAILY [facility] Administration Metoprolol Succinate 75 mg 01/29/19 22:00 01/30/19 11:01 Toprol Xl - PO 75 mg BID [facility] Administration Polyethylene Glycol 17 gm 01/26/19 10:00 01/30/19 11:00 Miralax (For Daily Use) - PO 17 gm DAILY [facility] Administration Ranolazine 1,000 mg 01/25/19 22:00 01/30/19 11:00 Ranexa - PO 1,000 mg BID [facility] Administration Sodium Bicarbonate 650 mg 01/25/19 22:00 01/30/19 10:58 Sodium Bicarbonate - PO 650 mg BID [facility] Administration Ticagrelor 60 mg 01/26/19 10:38 01/30/19 11:00 Brilinta PO 60 mg BID [facility] Administration Umeclidinium/Vilanterol 1 puff 01/26/19 10:00 01/30/19 11:05 Anoro Ellipta 62.5-25 Mcg Inh IH 1 puff DAILY [facility] Administration ASSESSMENT/PLAN: 73 y/o M w/PMH of anemia, COPD (on home O2), JARET, CHF, CAD (s/p CABG 2014), DM, HTN, HLD, recently diagnosed ?leukemia (2018) presented to the ER with SOB for a couple of weeks and was found to be in Aflutter. Heme consulted for anemia. -Anemia (macrocytic) -Ferritin high. Iron 167, TIBC 321, Iron sat 52 -Monitor CBC -According to paperwork he may have hx of MDS. -Has close follow up with Dr. Perry Torre at [facility]. -Pt will need to continue f/u with Dr. Torre. No further w/u at this time. -Called Dr. Torre's service today and left message with service regarding pt. Awaiting call back from Dr. Torre -Leukemia vs MDS -Pt reports being follow by Dr. Perry Torre at [facility] -Is on eltrombopag, held currently. -will need close f/u with his oncologist on discharge Visit type - Emergency Visit Emergency Visit: Yes ED Registration Date: 01/25/19 Care time: The patient presented to the Emergency Department on the above date and was hospitalized for further evaluation of their emergent condition. - New Patient This patient is new to me today: No - Critical Care Critical Care patient: No
[2019-01-30] MEDS: ATORVASTATIN CA 10 MG TABLET (FP) PO SCH (22:08)
[2019-01-31] MEDS: FUROSEMIDE 40 MG/4 ML INJECTABLE VIAL IVPUSH SCH ×2 (07:00→14:02)
[2019-01-31] MEDS: INSULIN SLIDING SCALE (NOVOLOG) 1 VIAL SQ SCH ×4 (07:00→22:12)
[2019-01-31 08:07] LABS: ALBUMIN 3.5 g/dl (3.4-5.0); ALK PHOS 50 U/L (45-117); ANION GAP 6 MMOL/L (8-16); BILIRUBIN,TOTAL 1.3 mg/dL (0.2-1); BLOOD UREA NITROGEN 26 mg/dL (7-18); CHLORIDE 95 mmol/L (98-107); CO2 30 mmol/L (21-32); CREATININE 1.5 mg/dL (0.55-1.3); GLUCOSE,RANDOM 254 mg/dL (74-106); POTASSIUM 4.5 mmol/L (3.5-5.1); SGOT/AST 16 U/L (15-37); SGPT/ALT 18 U/L (13-61); SODIUM 132 mmol/L (136-145); TOT PROT 7.6 g/dl (6.4-8.2)
[2019-01-31] MEDS ORDERED: PT OWN MED DRAWER 7, Y5N ONE ×2 (11:01→22:02)
[2019-01-31 11:10] LABS: BASO % 0.5 % (0-2.0); EOS % 0.6 % (0-4.5); HEMATOCRIT 24.1 % (35.4-49); HEMOGLOBIN 7.9 GM/dL (11.7-16.9); LYMPH % 8.7 % (8-40); MCH 32.6 pg (25.7-33.7); MCHC 32.8 g/dl (32.0-35.9); MEAN CELL VOLUME 99.3 fl (80-96); MEAN PLT VOLUME 10.2 fl (7.5-11.1); MONO % 14.7 % (3.8-10.2); NEUT % 75.5 % (42.8-82.8); PLATELET COUNT 171 K/MM3 (134-434); RBC 2.42 M/mm3 (4.00-5.60); RDW 30.6 % (11.9-15.9); WHITE BLOOD COUNT 6.9 K/mm3 (4.0-10.0)
[2019-01-31] MEDS: MECLIZINE HCL 25 MG TABLET (FP) PO SCH (11:11)
[2019-01-31] MEDS: RANOLAZINE E.R. 1,000 MG TABLET (FP) PO SCH ×2 (11:11→22:10)
[2019-01-31] MEDS: SODIUM BICARBONATE 650 MG TABLET PO SCH ×2 (11:12→22:08)
[2019-01-31] MEDS: APIXABAN 5 MG TABLET PO SCH ×2 (11:12→22:09)
[2019-01-31] MEDS: FOLIC ACID 1 MG TABLET (FP) PO SCH (11:12)
[2019-01-31] MEDS: UMECLIDINIUM/VILANTEROL (ANORO) 62.5/25 MCG INHALER IH SCH (11:13)
[2019-01-31] MEDS: POLYETHYLENE GLYCOL 3350 119 GM BTL PO SCH (11:13)
[2019-01-31] MEDS: TICAGRELOR 60 MG TABLET PO SCH ×2 (11:13→22:09)
--- NOTE | 2019-01-31 11:58 | PN ---
Progress Note, Physician Chief Complaint: patient seen and examined to get prbc and on iv lasix leg edema is improving - Current Medication List Current Medications: Active Medications Acetaminophen (Tylenol -) 650 mg PO Q4H PRN PRN Reason: PAIN OR FEVER Last Admin: 01/28/19 22:19 Dose: 650 mg Apixaban (Eliquis -) 5 mg PO BID [facility] Last Admin: 01/31/19 11:12 Dose: 5 mg Atorvastatin Calcium (Lipitor -) 10 mg PO HS [facility] Last Admin: 01/30/19 22:08 Dose: 10 mg Folic Acid (Folic Acid -) 1 mg PO DAILY [facility] Last Admin: 01/31/19 11:12 Dose: 1 mg Furosemide (Lasix Injection -) 60 mg IVPUSH BID@0600,1400 [facility] Last Admin: 01/31/19 07:00 Dose: 60 mg Insulin Aspart (Novolog Vial Sliding Scale -) 1 vial SQ ACHS [facility]; Protocol Last Admin: 01/31/19 11:16 Dose: 4 units Meclizine HCl (Antivert -) 25 mg PO DAILY [facility] Last Admin: 01/31/19 11:11 Dose: 25 mg Metoprolol Succinate (Toprol Xl -) 75 mg PO BID [facility] Last Admin: 01/31/19 11:11 Dose: 75 mg Polyethylene Glycol (Miralax (For Daily Use) -) 17 gm PO DAILY [facility] Last Admin: 01/31/19 11:13 Dose: 17 gm Ranolazine (Ranexa -) 1,000 mg PO BID [facility] Last Admin: 01/31/19 11:11 Dose: 1,000 mg Sodium Bicarbonate (Sodium Bicarbonate -) 650 mg PO BID [facility] Last Admin: 01/31/19 11:12 Dose: 650 mg Ticagrelor (Brilinta) 60 mg PO BID [facility] Last Admin: 01/31/19 11:13 Dose: 60 mg Umeclidinium/Vilanterol (Anoro Ellipta 62.5-25 Mcg Inh) 1 puff IH DAILY [facility] Last Admin: 01/31/19 11:13 Dose: 1 puff - Objective Vital Signs: Vital Signs Temperature 98.2 F 01/31/19 11:19 Pulse Rate 110 H 01/31/19 11:19 Respiratory Rate 20 01/31/19 11:19 Blood Pressure 104/52 L 01/31/19 11:19 O2 Sat by Pulse Oximetry (%) 98 01/31/19 07:48 Constitutional: Yes: Calm Cardiovascular: Yes: Regular Rate and Rhythm, S1, S2 Respiratory: Yes: CTA Bilaterally Gastrointestinal: Yes: Normal Bowel Sounds, Soft Edema: Yes (much improved) Neurological: Yes: Alert, Oriented Labs: CBC, BMP 01/31/19 10:50 01/31/19 06:55 INR, PTT INR 1.29 (0.83-1.09) H 01/25/19 13:00 Problem List - Problems (1) Leg edema Assessment/Plan: iv lasix 60mg bid today will change to po tmw dc home in AM Code(s): R60.0 - LOCALIZED EDEMA (2) Atrial fibrillation with RVR Assessment/Plan: metoprolol 75mg bid eliquis brlinta 60mg bid Code(s): I48.91 - UNSPECIFIED ATRIAL FIBRILLATION (3) COPD (chronic obstructive pulmonary disease) Assessment/Plan: bronchodilators oxygen via nasal canula Code(s): J44.9 - CHRONIC OBSTRUCTIVE PULMONARY DISEASE, UNSPECIFIED (4) Anemia Assessment/Plan: prbc today h/h 7.9 patient gets outpatient transfusin every two weeks and this week is his transfusion week Code(s): D64.9 - ANEMIA, UNSPECIFIED (5) CAD (coronary artery disease) Assessment/Plan: toprol,lipitor,aspiin Code(s): I25.10 - ATHSCL HEART DISEASE OF [place] CORONARY ARTERY W/O ANG PCTRS
[2019-01-31 12:11] LABS: ANISOCYTOSIS 0; MACROCYTOSIS 0; PLATELET ESTIMATE NORMAL; TARGET CELLS 1+; TEAR DROP CELLS 1+
--- NOTE | 2019-01-31 12:31 | PN ---
Progress Note (short form) - Note Progress Note: States breathing feels stable. Leg edema improving. No fevers recorded. Intake & Output 01/28/19 01/29/19 01/30/19 01/31/19 23:59 23:59 23:59 23:59 Intake Total 620 1290 1200 70 Output Total 850 450 Balance 893 944 2631 -380 Weight 226 lb 8 oz 224 lb 9.6 oz 223 lb 220 lb 9.6 oz Last Vital Signs Temp Pulse Resp BP Pulse Ox 98.2 F 110 H 20 104/52 L 98 01/31/19 11:19 01/31/19 11:19 01/31/19 11:19 01/31/19 11:19 01/31/19 07:48 Active Medications Acetaminophen (Tylenol -) 650 mg PO Q4H PRN PRN Reason: PAIN OR FEVER Last Admin: 01/28/19 22:19 Dose: 650 mg Apixaban (Eliquis -) 5 mg PO BID [facility] Last Admin: 01/31/19 11:12 Dose: 5 mg Atorvastatin Calcium (Lipitor -) 10 mg PO HS [facility] Last Admin: 01/30/19 22:08 Dose: 10 mg Folic Acid (Folic Acid -) 1 mg PO DAILY [facility] Last Admin: 01/31/19 11:12 Dose: 1 mg Furosemide (Lasix Injection -) 60 mg IVPUSH BID@0600,1400 [facility] Last Admin: 01/31/19 07:00 Dose: 60 mg Insulin Aspart (Novolog Vial Sliding Scale -) 1 vial SQ ACHS [facility]; Protocol Last Admin: 01/31/19 11:16 Dose: 4 units Meclizine HCl (Antivert -) 25 mg PO DAILY [facility] Last Admin: 01/31/19 11:11 Dose: 25 mg Metoprolol Succinate (Toprol Xl -) 75 mg PO BID [facility] Last Admin: 01/31/19 11:11 Dose: 75 mg Polyethylene Glycol (Miralax (For Daily Use) -) 17 gm PO DAILY [facility] Last Admin: 01/31/19 11:13 Dose: 17 gm Ranolazine (Ranexa -) 1,000 mg PO BID [facility] Last Admin: 01/31/19 11:11 Dose: 1,000 mg Sodium Bicarbonate (Sodium Bicarbonate -) 650 mg PO BID [facility] Last Admin: 01/31/19 11:12 Dose: 650 mg Ticagrelor (Brilinta) 60 mg PO BID [facility] Last Admin: 01/31/19 11:13 Dose: 60 mg Umeclidinium/Vilanterol (Anoro Ellipta 62.5-25 Mcg Inh) 1 puff IH DAILY [facility] Last Admin: 01/31/19 11:13 Dose: 1 puff Gen: NAD Heart: irregular Lung: decreased breath sounds at the bases Abd: soft, nontender Ext: Decreased bipedal edema Laboratory Results - last 24 hr 01/30/19 01/30/19 01/31/19 17:02 21:00 06:02 WBC RBC Hgb Hct MCV MCH MCHC RDW Plt Count MPV Absolute Neuts (auto) Neutrophils % Neutrophils % (Manual) Band Neutrophils % Lymphocytes % Lymphocytes % (Manual) Monocytes % Monocytes % (Manual) Eosinophils % Eosinophils % (Manual) Basophils % Basophils % (Manual) Myelocytes % (Man) Promyelocytes % (Man) Blast Cells % (Manual) Nucleated RBC % Metamyelocytes Hypochromia Platelet Estimate Platelet Comment Polychromasia Poikilocytosis Anisocytosis Microcytosis Macrocytosis Target Cells Tear Drop Cells Schistocytes Sodium Potassium Chloride Carbon Dioxide Anion Gap BUN Creatinine Creat Clearance w eGFR POC Glucometer 297 327 256 Random Glucose Calcium Total Bilirubin AST ALT Alkaline Phosphatase Total Protein Albumin 01/31/19 01/31/19 01/31/19 06:55 10:50 11:15 WBC 6.9 RBC 2.42 L Hgb 7.9 L Hct 24.1 L MCV 99.3 H MCH 32.6 MCHC 32.8 RDW 30.6 H Plt Count 171 MPV 10.2 Absolute Neuts (auto) 5.2 Neutrophils % 75.5 Neutrophils % (Manual) 77.8 Band Neutrophils % 0.0 Lymphocytes % 8.7 D Lymphocytes % (Manual) 13.1 D Monocytes % 14.7 H Monocytes % (Manual) 7 D Eosinophils % 0.6 Eosinophils % (Manual) 2.0 Basophils % 0.5 Basophils % (Manual) 0.0 Myelocytes % (Man) 0 D Promyelocytes % (Man) 0 Blast Cells % (Manual) 0 Nucleated RBC % 0 Metamyelocytes 0 Hypochromia 1+ Platelet Estimate Normal Platelet Comment Present Polychromasia 1+ Poikilocytosis 2+ Anisocytosis 0 Microcytosis 1+ Macrocytosis 0 Target Cells 1+ Tear Drop Cells 1+ Schistocytes 1+ Sodium 132 L Potassium 4.5 Chloride 95 L Carbon Dioxide 30 Anion Gap 6 L BUN 26 H Creatinine 1.5 H Creat Clearance w eGFR 46.13 POC Glucometer 297 Random Glucose 254 H Calcium 9.0 Total Bilirubin 1.3 H AST 16 ALT 18 Alkaline Phosphatase 50 Total Protein 7.6 Albumin 3.5 Problem List - Problems (1) Atrial fibrillation with RVR Code(s): I48.91 - UNSPECIFIED ATRIAL FIBRILLATION (2) Atrial flutter Code(s): I48.92 - UNSPECIFIED ATRIAL FLUTTER (3) COPD (chronic obstructive pulmonary disease) Code(s): J44.9 - CHRONIC OBSTRUCTIVE PULMONARY DISEASE, UNSPECIFIED (4) Diabetes Code(s): E11.9 - TYPE 2 DIABETES MELLITUS WITHOUT COMPLICATIONS Qualifiers: Diabetes mellitus type: type 2 (5) Elevated troponin Code(s): R74.8 - ABNORMAL LEVELS OF OTHER SERUM ENZYMES (6) HTN (hypertension) Code(s): I10 - ESSENTIAL (PRIMARY) HYPERTENSION (7) Hypercholesterolemia Code(s): E78.00 - PURE HYPERCHOLESTEROLEMIA, UNSPECIFIED (8) IDDM (insulin dependent diabetes mellitus) Code(s): E11.9 - TYPE 2 DIABETES MELLITUS WITHOUT COMPLICATIONS; Z79.4 - [employer] (CURRENT) USE OF INSULIN A/P Atrial Flutter with RVR Acute on Chronic Diastolic Heart Failure COPD Chronic Hypoxic Respiratory Failure JARET Pulmonary HTN HTN DM Hypercholesterolemia - IV Lasix - rate control - AC - monitor urine output, creatinine - O2 to keep SpO2 >90% - inhaled bronchodilators - can defer systemic steroids - No Pulmonary contraindication for D/C planning once he is transitioned to PO Lasix Dr Teran
[2019-01-31] MEDS: ATORVASTATIN CA 10 MG TABLET (FP) PO SCH (22:09)
[2019-02-01] MEDS: FUROSEMIDE 40 MG/4 ML INJECTABLE VIAL IVPUSH SCH (05:59)
[2019-02-01] MEDS: INSULIN SLIDING SCALE (NOVOLOG) 1 VIAL SQ SCH ×2 (06:02→11:53)
[2019-02-01 06:17] LABS: BASO % 0.2 % (0-2.0); EOS % 0.5 % (0-4.5); HEMOGLOBIN 8.6 GM/dL (11.7-16.9); LYMPH % 9.4 % (8-40); MCH 31.5 pg (25.7-33.7); MEAN CELL VOLUME 95.4 fl (80-96); MEAN PLT VOLUME 10.2 fl (7.5-11.1); MONO % 16.5 % (3.8-10.2); NEUT % 73.4 % (42.8-82.8); PLATELET COUNT 201 K/MM3 (134-434); RBC 2.72 M/mm3 (4.00-5.60); RDW 31.2 % (11.9-15.9); WHITE BLOOD COUNT 10.4 K/mm3 (4.0-10.0)
[2019-02-01] MEDS ORDERED: PT OWN MED DRAWER 7, Y5N ONE (09:03)
[2019-02-01] MEDS: SODIUM BICARBONATE 650 MG TABLET PO SCH (09:11)
[2019-02-01] MEDS: FOLIC ACID 1 MG TABLET (FP) PO SCH (09:11)
[2019-02-01] MEDS: APIXABAN 5 MG TABLET PO SCH (09:11)
[2019-02-01] MEDS: MECLIZINE HCL 25 MG TABLET (FP) PO SCH (09:11)
[2019-02-01] MEDS: TICAGRELOR 60 MG TABLET PO SCH (09:11)
[2019-02-01] MEDS: RANOLAZINE E.R. 1,000 MG TABLET (FP) PO SCH (09:12)
[2019-02-01 09:16] LABS: ANISOCYTOSIS 2+; MACROCYTOSIS 0; OVALOCYTE 1+; PLATELET ESTIMATE NORMAL; TARGET CELLS 1+; TEAR DROP CELLS 1+
[2019-02-01] MEDS: UMECLIDINIUM/VILANTEROL (ANORO) 62.5/25 MCG INHALER IH SCH (09:18)
[2019-02-01] MEDS: POLYETHYLENE GLYCOL 3350 119 GM BTL PO SCH (09:18)
--- NOTE | 2019-02-01 10:30 | PN ---
Progress Note (short form) - Note Progress Note: PULMONary States breathing feels stable. Wants to go home remains on IV lasix VSS Gen: NAD Heart: irregular Lung: decreased breath sounds at the bases Abd: soft, nontender Ext: Decreased bipedal edema Problem List - Problems (1) Atrial fibrillation with RVR Code(s): I48.91 - UNSPECIFIED ATRIAL FIBRILLATION (2) Atrial flutter Code(s): I48.92 - UNSPECIFIED ATRIAL FLUTTER (3) COPD (chronic obstructive pulmonary disease) Code(s): J44.9 - CHRONIC OBSTRUCTIVE PULMONARY DISEASE, UNSPECIFIED (4) Diabetes Code(s): E11.9 - TYPE 2 DIABETES MELLITUS WITHOUT COMPLICATIONS Qualifiers: Diabetes mellitus type: type 2 (5) Elevated troponin Code(s): R74.8 - ABNORMAL LEVELS OF OTHER SERUM ENZYMES (6) HTN (hypertension) Code(s): I10 - ESSENTIAL (PRIMARY) HYPERTENSION (7) Hypercholesterolemia Code(s): E78.00 - PURE HYPERCHOLESTEROLEMIA, UNSPECIFIED (8) IDDM (insulin dependent diabetes mellitus) Code(s): E11.9 - TYPE 2 DIABETES MELLITUS WITHOUT COMPLICATIONS; Z79.4 - [facility] (CURRENT) USE OF INSULIN A/P Atrial Flutter with RVR Acute on Chronic Diastolic Heart Failure COPD Chronic Hypoxic Respiratory Failure JARET Pulmonary HTN HTN DM Hypercholesterolemia - IV Lasix can be changed to oral - AC - daily weights - O2 to keep SpO2 >90%( has home o2) - inhaled bronchodilators - No Pulmonary contraindication for D/C planning once he is transitioned to PO Lasix Darinel YUNG MD
--- NOTE | 2019-02-01 10:42 | DS ---
Physical Examination Vital Signs: Vital Signs Temperature 98.8 F 02/01/19 05:47 Pulse Rate 105 H 02/01/19 05:47 Respiratory Rate 20 02/01/19 05:47 Blood Pressure 119/64 02/01/19 05:47 O2 Sat by Pulse Oximetry (%) 97 02/01/19 08:23 Constitutional: Yes: Calm Cardiovascular: Yes: Regular Rate and Rhythm, S1, S2 Respiratory: Yes: CTA Bilaterally, On Nasal O2 Gastrointestinal: Yes: Normal Bowel Sounds, Soft Edema: Yes (much reduced) Neurological: Yes: Alert, Oriented Labs: CBC, BMP 02/01/19 05:30 01/31/19 06:55 Discharge Summary Reason For Visit: PULMONARY EDEMA W/ CONGESTIVE HEART FAILURE Current Active Problems (HFpEF) heart failure with preserved ejection fraction (Acute) Anemia (Acute) Atrial fibrillation with RVR (Acute) Atrial flutter (Acute) CKD (chronic kidney disease) (Acute) COPD (chronic obstructive pulmonary disease) (Acute) Diabetes (Acute) Elevated troponin (Acute) HTN (hypertension) (Acute) Heart failure (Acute) History of heart artery stent (Acute) Hypercholesterolemia (Acute) IDDM (insulin dependent diabetes mellitus) (Acute) Leg edema (Acute) Myocardial infarct, old (Acute) Pneumonia (Acute) Presence of cardiac pacemaker (Acute) Pulmonary nodules (Acute) Sick sinus syndrome (Acute) Sleep apnea (Acute) Other Procedures: ct chest shows patch air space opacities noted repeat in 2-3 weeks to r/o pul nodules Hospital Course: - Primary Care Physician PCP: Dashawn Sauceda - Admission Chief Complaint: tachycardia History of Present Illness: Patient is 73 y/o male with past medical history Anemia, COPD on O2, sleep apnea , heart failure, CABG 2014, diabetes, HTN, hypercholesterolemia, and thyroid disease. Patient presented to the ER with complaints of worsening SOB for past couple of weeks. Today patient was seen by his composition tile layer Dr Clements and was noted to be tachycardic. In ER EKG noted with A-flutter and trop 0.27. admitted to telemetry floor iv lasix bid and the breathing and leg edema improved metoprolol dose increased in hospital to 75mg po bid and patient is on eliquis as well anemia get blood tranfusion every 2 weeks received 1 unit of PRBC now h/h 7.9 is 8.6 Condition: Guarded - Instructions Diet, Activity, Other Instructions: get chest CT w/o contrast in 3 weeks to look for pulmonary nodules folllow up with PMD as outpatient to get blood work FOllow up with the oncologist Dr gates as outpatient Referrals: Dashawn Sauceda [Primary Care Provider] - 2 Weeks Disposition: HOME - Home Medications Comprehensive Discharge Medication List: Ambulatory Orders Aspirin [Aspirin EC] 81 mg PO DAILY 09/12/17 Insulin Aspart [Novolog] 5 unit SQ TID 09/12/17 Albuterol Sulfate Inhaler - [Ventolin Hfa Inhaler -] 1 - 2 inh PO Q4H 09/13/17 Docusate Sodium [Colace -] 100 mg PO DAILY 09/13/17 Folic Acid 1 mg PO DAILY 09/13/17 Furosemide 20 mg PO DAILY 09/13/17 Linaclotide [Linzess] 145 mcg PO DAILY 09/13/17 Meclizine HCl 25 mg PO DAILY 09/13/17 Metoprolol Succinate [Toprol Xl -] 50 mg PO BID 09/13/17 Sodium Bicarbonate 650 mg PO TID 09/13/17 Umeclidinium Brm/Vilanterol Tr [Anoro Ellipta 62.5-25 Mcg INH] 1 each IH DAILY 09/13/17 Atorvastatin Calcium [Lipitor] 10 mg PO DAILY 01/25/19 Icosapent Ethyl [Vascepa] 2 gm PO BID 01/25/19 Insulin Detemir [Levemir Flextouch] 0 unit SQ DAILY 01/25/19 Insulin Glargine,Hum.rec.anlog [Basaglar Kwikpen U-100] 20 unit SQ DAILY Ranolazine [Ranexa] 1,000 mg PO BID 01/25/19 Ticagrelor [Brilinta] 90 mg PO BID 01/25/19 Eltrombopag Olamine [Promacta] 100 mg PO 01/28/19
--- NOTE | 2019-02-01 10:55 | PN ---
Progress Note, Physician History of Present Illness: The patient is a 73 year old male, with a significant PMH of Anemia, COPD on O2 , sleep apnea, HF, CABG (2004), diabetes, HTN, hypercholesterolemia, and thyroid disease who presents to the emergency department with worsening shortness of breath for the past couple of weeks. The patient states he went to see Dr. Clements, and was advised to come to the ED due to his fast and irregular heart rate. The patient states he endorses mild leg swelling, secondary to his symptoms. The patient denies chest pain, headache or dizziness. The patient denies fever, chills, diarrhea or constipation. The patient denies dysuria, frequency, urgency or hematuria. Allergies: NKDA Past surgical history: Cardiac Surgery (quadruple bypass, stent, pacemaker) Social history: Former smoker (quit 15 years ago). No alcohol use. PCP: Dr. Dashawn Sauceda Dyslexia Teacher: Dr. Macario - Current Medication List Current Medications: Active Medications Acetaminophen (Tylenol -) 650 mg PO Q4H PRN PRN Reason: PAIN OR FEVER Last Admin: 01/28/19 22:19 Dose: 650 mg Apixaban (Eliquis -) 5 mg PO BID [facility] Last Admin: 02/01/19 09:11 Dose: 5 mg Atorvastatin Calcium (Lipitor -) 10 mg PO HS [facility] Last Admin: 01/31/19 22:09 Dose: 10 mg Folic Acid (Folic Acid -) 1 mg PO DAILY [facility] Last Admin: 02/01/19 09:11 Dose: 1 mg Furosemide (Lasix Injection -) 60 mg IVPUSH BID@0600,1400 [facility] Last Admin: 02/01/19 05:59 Dose: 60 mg Insulin Aspart (Novolog Vial Sliding Scale -) 1 vial SQ [facility]; Protocol Last Admin: 02/01/19 06:02 Dose: 6 units Meclizine HCl (Antivert -) 25 mg PO DAILY [facility] Last Admin: 02/01/19 09:11 Dose: 25 mg Metoprolol Succinate (Toprol Xl -) 75 mg PO BID [facility] Last Admin: 02/01/19 09:12 Dose: 75 mg Polyethylene Glycol (Miralax (For Daily Use) -) 17 gm PO DAILY [facility] Last Admin: 02/01/19 09:18 Dose: 17 gm Ranolazine (Ranexa -) 1,000 mg PO BID [facility] Last Admin: 02/01/19 09:12 Dose: 1,000 mg Sodium Bicarbonate (Sodium Bicarbonate -) 650 mg PO BID [facility] Last Admin: 02/01/19 09:11 Dose: 650 mg Ticagrelor (Brilinta) 60 mg PO BID [facility] Last Admin: 02/01/19 09:11 Dose: 60 mg Umeclidinium/Vilanterol (Anoro Ellipta 62.5-25 Mcg Inh) 1 puff IH DAILY [facility] Last Admin: 02/01/19 09:18 Dose: 1 puff - Objective Vital Signs: Vital Signs Temperature 98.8 F 02/01/19 05:47 Pulse Rate 105 H 02/01/19 05:47 Respiratory Rate 20 02/01/19 05:47 Blood Pressure 119/64 02/01/19 05:47 O2 Sat by Pulse Oximetry (%) 97 02/01/19 08:23 Labs: CBC, BMP 02/01/19 05:30 01/31/19 06:55 INR, PTT INR 1.29 (0.83-1.09) H 01/25/19 13:00 Problem List - Problems (1) Atrial flutter Code(s): I48.92 - UNSPECIFIED ATRIAL FLUTTER (2) COPD (chronic obstructive pulmonary disease) Code(s): J44.9 - CHRONIC OBSTRUCTIVE PULMONARY DISEASE, UNSPECIFIED (3) Diabetes Code(s): E11.9 - TYPE 2 DIABETES MELLITUS WITHOUT COMPLICATIONS Qualifiers: Diabetes mellitus type: type 2 (4) Elevated troponin Code(s): R74.8 - ABNORMAL LEVELS OF OTHER SERUM ENZYMES (5) HTN (hypertension) Code(s): I10 - ESSENTIAL (PRIMARY) HYPERTENSION (6) Hypercholesterolemia Code(s): E78.00 - PURE HYPERCHOLESTEROLEMIA, UNSPECIFIED (7) Leg edema Code(s): R60.0 - LOCALIZED EDEMA (8) Presence of cardiac pacemaker Code(s): Z95.0 - PRESENCE OF CARDIAC PACEMAKER (9) Pulmonary nodules Code(s): R91.8 - OTHER NONSPECIFIC ABNORMAL FINDING OF LUNG FIELD (10) Sleep apnea Code(s): G47.30 - SLEEP APNEA, UNSPECIFIED (11) Myocardial infarct, old Code(s): I25.2 - OLD MYOCARDIAL INFARCTION (12) History of heart artery stent Code(s): Z95.5 - PRESENCE OF CORONARY ANGIOPLASTY IMPLANT AND GRAFT (13) Pneumonia Code(s): J18.9 - PNEUMONIA, UNSPECIFIED ORGANISM (14) (HFpEF) heart failure with preserved ejection fraction Code(s): I50.30 - UNSPECIFIED DIASTOLIC (CONGESTIVE) HEART FAILURE
--- NOTE | 2019-02-01 10:58 | PN ---
Progress Note (short form) - Note Progress Note: patient to go home on toprol xl 150mg daily brilinta 90mg bid which he was on at home eliquis 5mg bid lasix will change to oral dosing Problem List - Problems (1) Leg edema Code(s): R60.0 - LOCALIZED EDEMA (2) Atrial fibrillation with RVR Code(s): I48.91 - UNSPECIFIED ATRIAL FIBRILLATION (3) COPD (chronic obstructive pulmonary disease) Code(s): J44.9 - CHRONIC OBSTRUCTIVE PULMONARY DISEASE, UNSPECIFIED (4) Anemia Code(s): D64.9 - ANEMIA, UNSPECIFIED (5) CAD (coronary artery disease) Code(s): I25.10 - ATHSCL HEART DISEASE OF [place] CORONARY ARTERY W/O ANG PCTRS
[2019-02-01 13:13] VITALS: BP 117/53; PULSE 110; TEMP 98.3
--- NOTE | 2019-02-01 15:21 | PDOC ---
Patient Follow-up (Call Back) - Post ED Follow - Up Chief Complaint: Congestive Heart Failure Condition at time of discharge: Guarded Disposition at time of original discharge: HOME - Disposition Additional Instructions/Notes: review educational ultrasound performed on pt lungs, indication sob, incidental finding of gallstones , stone in the neck and pericholecystic fluid, likely ascites in setting of chf. follow up CT chest on admission comments on gallbladder stones. CAll from DR Giraldo to dr Craig regarding findings, dr Craig will follow up with pt pcp dr Sauceda for outpatient FU/sono
== END 2019-02-01 15:15 | disposition home or self-care (01) | DRG 291 ==
LOC: JER 12:21 → JERBED 14:05 → J4S 20:30
PROVIDERS: ADMIT Family Medicine; ATTEND Family Medicine
PROC: 3E0F7GC Introduction of Other Therapeutic Substance into Respiratory Tract, Via Natural or Artificial Opening (ICD-10-PCS; principal; 2019-01-28)
DX: I13.0 Hypertensive heart and chronic kidney disease with heart failure and stage 1 through stage 4 chronic kidney disease, or unspecified chronic kidney disease (principal); E43 Unspecified severe protein-calorie malnutrition; I50.33 Acute on chronic diastolic (congestive) heart failure; I48.92 Unspecified atrial flutter; J96.11 Chronic respiratory failure with hypoxia; E11.22 Type 2 diabetes mellitus with diabetic chronic kidney disease; N18.9 Chronic kidney disease, unspecified; Z79.4 Long term (current) use of insulin; E78.5 Hyperlipidemia, unspecified; J44.9 Chronic obstructive pulmonary disease, unspecified; Z99.81 Dependence on supplemental oxygen; D46.4 Refractory anemia, unspecified; I48.91 Unspecified atrial fibrillation; Z95.1 Presence of aortocoronary bypass graft; Z87.891 Personal history of nicotine dependence; E66.9 Obesity, unspecified; Z68.32 Body mass index [BMI] 32.0-32.9, adult; Z95.5 Presence of coronary angioplasty implant and graft; I25.10 Atherosclerotic heart disease of native coronary artery without angina pectoris; G47.33 Obstructive sleep apnea (adult) (pediatric); I27.20 Pulmonary hypertension, unspecified; I25.2 Old myocardial infarction; R91.8 Other nonspecific abnormal finding of lung field; D53.9 Nutritional anemia, unspecified
CPT/HCPCS: 36415; 36430; 71045-TC-FY; 71250-TC; 80048; 80053; 80061; 81003; 82550; 82728; 82962; 83010; 83036; 83540; 83550; 83615; 83721; 83735; 83880; 84100; 84436; 84443; 84466; 84484; 85025; 85610; 85730; 86850; 86870; 86900; 86901; 86902; 86922; 93005; 93010; 93306-TC; 94640; 94660; 97116-GP; 97161-GP; 99285-25; J1644; P9038; P9058

== ENCOUNTER 2019-02-01 22:49 | Inpatient (IN) | payer OTHER ==
--- NOTE | 2019-02-01 23:36 | PDOC ---
History of Present Illness - General Stated Complaint: Injury Time Seen by Provider: 02/01/19 23:36 Past History - Past Medical History Allergies/Adverse Reactions: Allergies Allergy/AdvReac Type Severity Reaction Status Date / Time No Known Allergies Allergy Verified 01/25/19 12:44 Home Medications: Ambulatory Orders Aspirin [Aspirin EC] 81 mg PO DAILY 09/12/17 Insulin Aspart [Novolog Flexpen] 5 unit SQ TID 09/12/17 Albuterol Sulfate Inhaler - [Ventolin HFA Inhaler -] 1 - 2 inh PO Q4H 09/13/17 Docusate Sodium [Colace -] 100 mg PO DAILY 09/13/17 Folic Acid 1 mg PO DAILY 09/13/17 Linaclotide [Linzess] 145 mcg PO DAILY 09/13/17 Umeclidinium Brm/Vilanterol Tr [Anoro Ellipta 62.5-25 Mcg INH] 1 each IH DAILY 09/13/17 Atorvastatin Calcium [Lipitor] 10 mg PO DAILY 01/25/19 Icosapent Ethyl [Vascepa] 2 gm PO BID 01/25/19 Insulin Glargine,Hum.rec.anlog [Basaglar Kwikpen U-100] 20 unit SQ DAILY Ranolazine [Ranexa] 1,000 mg PO BID 01/25/19 Eltrombopag Olamine [Promacta] 100 mg PO 01/28/19 Acetaminophen [Tylenol .Regular Strength -] 650 mg PO Q4H PRN tablet 02/01/19 Apixaban [Eliquis -] 5 mg PO BID #60 tablet 02/01/19 Atorvastatin Ca [Lipitor] 10 mg PO HS tablet 02/01/19 Folic Acid - 1 mg PO DAILY tablet 02/01/19 Furosemide 80 mg PO DAILY #30 tablet 02/01/19 Insulin Sliding Scale [Novolog Vial Sliding Scale -] 1 vial SQ ACHS units 02/01 Meclizine HCl [Antivert -] 25 mg PO DAILY tablet 02/01/19 Metoprolol Succinate [Toprol XL -] 150 mg PO DAILY #30 tab.sr.24h 02/01/19 Polyethylene Glycol 3350 [Miralax 119 gm Btl -] 17 gm PO DAILY bottle 02/01/19 Ranolazine [Ranexa -] 1,000 mg PO BID tab 02/01/19 Sodium Bicarbonate - 650 mg PO BID tablet 02/01/19 Umeclidinium Brm/Vilanterol Tr [Anoro Ellipta 62.5-25 Mcg INH] 1 puff IH DAILY inhaler 02/01/19 Anemia: Yes Asthma: No Cancer: No Cardiac Disorders: Yes (BYPASS) CVA: No COPD: Yes CHF: No Dementia: No Diabetes: Yes GI Disorders: No Disorders: Yes ("KIDNEY PROBLEM") HTN: Yes Hypercholesterolemia: Yes Liver Disease: No Seizures: No Thyroid Disease: Yes - Surgical History Cardiac Surgery: Yes (BYPASS,STENT,PACEMAKER) - Suicide/Smoking/Psychosocial Hx Smoking History: Never smoked Have you smoked in the past 12 months: No If you are a former smoker, when did you quit?: 15 YRS Hx Alcohol Use: No Drug/Substance Use Hx: No Substance Use Type: None Hx Substance Use Treatment: No *DC/Admit/Observation/Transfer - Referrals Referrals: Dashawn Sauceda [Primary Care Provider] - - Patient Instructions - Post Discharge Activity
[2019-02-02 01:20] LABS: BASO % 0.3 % (0-2.0); EOS % 0.6 % (0-4.5); HEMATOCRIT 24.4 % (35.4-49); LYMPH % 11.1 % (8-40); MCH 31.4 pg (25.7-33.7); MCHC 32.6 g/dl (32.0-35.9); MEAN CELL VOLUME 96.4 fl (80-96); MEAN PLT VOLUME 10.1 fl (7.5-11.1); MONO % 17.9 % (3.8-10.2); NEUT % 70.1 % (42.8-82.8); PLATELET COUNT 188 K/MM3 (134-434); RBC 2.54 M/mm3 (4.00-5.60); RDW 31.7 % (11.9-15.9); WHITE BLOOD COUNT 10.3 K/mm3 (4.0-10.0)
[2019-02-02 01:34] LABS: INR 1.7 (0.83-1.09); PROTHROMBIN TIME (PATIENT) 20.2 SEC (9.7-13.0)
[2019-02-02 02:12] LABS: ALBUMIN 3.6 g/dl (3.4-5.0); ALK PHOS 53 U/L (45-117); ANION GAP 7 MMOL/L (8-16); ANISOCYTOSIS 1+; BLOOD UREA NITROGEN 42 mg/dL (7-18); CHLORIDE 91 mmol/L (98-107); CO2 30 mmol/L (21-32); LIPASE 355 U/L (73-393); PLATELET ESTIMATE ADEQUATE; POTASSIUM 4.8 mmol/L (3.5-5.1); SGOT/AST 25 U/L (15-37); SGPT/ALT 20 U/L (13-61); SODIUM 128 mmol/L (136-145); TOT PROT 7.8 g/dl (6.4-8.2)
[2019-02-02] MEDS ORDERED: INSULIN REGULAR HUMAN 100 UNITS/ML *VIAL SQ ONE (02:12)
[2019-02-02 02:13] LABS: GLUCOSE,RANDOM 328 mg/dL (74-106)
[2019-02-02] MEDS ORDERED: INSULIN (NOVOLOG) ASPART 100 UNITS/ML 10ML VIAL ONE (02:15)
[2019-02-02] MEDS ORDERED: SODIUM CHLORIDE 0.9% 500 ML INFUS.BAG IV ONE (03:19)
--- NOTE | 2019-02-02 05:25 | HP ---
Admitting History and Physical - Admission Chief Complaint: S/p Fall History of Present Illness: Patient is 73 y/o male with past medical history Anemia, COPD on O2, sleep apnea , heart failure, CABG 2014, diabetes, HTN, hypercholesterolemia, and thyroid disease, recent discharge 02/01/19 for SOB now brought in by son after finding him on floor with bruised R flank. Pt denies a fall and says he came in for an itch on his back. No chest pain. Pt acknowledges he is chronically on home oxygen, no new SOB. Pt however was able to provide PMHx of cardiac stents and is aware he is in [facility] when I saw the patient, there was no one else by the bedside. In the ED He was found to be hyponatremic to 128 at dc he was 134 Hyperglycemic over 328, corrected glu 132 He was found with BUN/Cr-42/2.0 from 04/11.4 at discharge Pt appeared dehydrated with dark colored urine Received NS @250 bolus EKG-Aflutter Ventricular rate 112- unchanged from before QTC-412 History Source: Medical Record - Past Medical History Cardiovascular: Yes: CAD (S/P CABG), CHF (SHF- EF unknown) Pulmonary: Yes: COPD, O2 Dependent - Past Surgical History Past Surgical History: Yes: Bypass (2004), Stent (2009) - Smoking History Smoking history: Never smoked Have you smoked in the past 12 months: No If you are a former smoker, when did you quit?: 15 YRS - Alcohol/Substance Use Hx Alcohol Use: No - Social History ADL: Independent History of Recent Travel: No Home Medications - Allergies Allergies/Adverse Reactions: Allergies Allergy/AdvReac Type Severity Reaction Status Date / Time No Known Allergies Allergy Verified 01/25/19 12:44 - Home Medications Home Medications: Ambulatory Orders Aspirin [Aspirin EC] 81 mg PO DAILY 09/12/17 Insulin Aspart [Novolog Flexpen] 5 unit SQ TID 09/12/17 Albuterol Sulfate Inhaler - [Ventolin HFA Inhaler -] 1 - 2 inh PO Q4H 09/13/17 Docusate Sodium [Colace -] 100 mg PO DAILY 09/13/17 Folic Acid 1 mg PO DAILY 09/13/17 Linaclotide [Linzess] 145 mcg PO DAILY 09/13/17 Umeclidinium Brm/Vilanterol Tr [Anoro Ellipta 62.5-25 Mcg INH] 1 each IH DAILY 09/13/17 Atorvastatin Calcium [Lipitor] 10 mg PO DAILY 01/25/19 Icosapent Ethyl [Vascepa] 2 gm PO BID 01/25/19 Insulin Glargine,Hum.rec.anlog [Basaglar Kwikpen U-100] 20 unit SQ DAILY Ranolazine [Ranexa] 1,000 mg PO BID 01/25/19 Eltrombopag Olamine [Promacta] 100 mg PO 01/28/19 Acetaminophen [Tylenol .Regular Strength -] 650 mg PO Q4H PRN tablet 02/01/19 Apixaban [Eliquis -] 5 mg PO BID #60 tablet 02/01/19 Atorvastatin Ca [Lipitor] 10 mg PO HS tablet 02/01/19 Folic Acid - 1 mg PO DAILY tablet 02/01/19 Furosemide 80 mg PO DAILY #30 tablet 02/01/19 Insulin Sliding Scale [Novolog Vial Sliding Scale -] 1 vial SQ ACHS units 02/01 Meclizine HCl [Antivert -] 25 mg PO DAILY tablet 02/01/19 Metoprolol Succinate [Toprol XL -] 150 mg PO DAILY #30 tab.sr.24h 02/01/19 Polyethylene Glycol 3350 [Miralax 119 gm Btl -] 17 gm PO DAILY bottle 02/01/19 Ranolazine [Ranexa -] 1,000 mg PO BID tab 02/01/19 Sodium Bicarbonate - 650 mg PO BID tablet 02/01/19 Umeclidinium Brm/Vilanterol Tr [Anoro Ellipta 62.5-25 Mcg INH] 1 puff IH DAILY inhaler 02/01/19 Review of Systems - Review of Systems Constitutional: denies: Fever, Lethargy, Loss of Appetite HENT: reports: Difficult Swallowing Neck: denies: Tenderness Cardiovascular: denies: Chest Pain, Edema Respiratory: reports: Other (flank bruise). denies: Cough, SOB Genitourinary: denies: Discharge, Dysuria, Flank Pain Physical Examination Vital Signs: Vital Signs Temperature 99.5 F 02/02/19 00:24 Pulse Rate 108 H 02/02/19 00:24 Respiratory Rate 20 02/02/19 00:24 Blood Pressure 125/59 L 02/02/19 00:24 O2 Sat by Pulse Oximetry (%) 99 02/02/19 00:24 Constitutional: Yes: Well Nourished, No Distress, Calm Eyes: Yes: Conjunctiva Clear HENT: Yes: Atraumatic Neck: Yes: Supple Cardiovascular: Yes: S1, S2 Respiratory: Yes: Other (coarse breath sounds) Gastrointestinal: Yes: Abdomen, Obese Musculoskeletal: Yes: Other (R T6 flank brusie about 6x4cm, mild tenderness) Extremities: Yes: WNL Edema: No Peripheral Pulses WNL: Yes Integumentary: Yes: Bruising Neurological: Yes: Alert, Oriented (to person and place) ...Motor Strength: WNL Psychiatric: Yes: Alert, Oriented Labs: CBC, BMP 02/02/19 01:04 02/02/19 01:04 Imaging - Results Chest X-ray: Image Reviewed Assessment/Plan CBC, BMP Vital Signs Temperature 99.5 F 02/02/19 00:24 Pulse Rate 111 H 02/02/19 04:26 Respiratory Rate 20 02/02/19 04:26 Blood Pressure 126/72 02/02/19 04:26 O2 Sat by Pulse Oximetry (%) 95 02/02/19 06:16 02/02/19 01:04 02/02/19 01:04 Ambulatory Orders Aspirin [Aspirin EC] 81 mg PO DAILY 09/12/17 Insulin Aspart [Novolog Flexpen] 5 unit SQ TID 09/12/17 Albuterol Sulfate Inhaler - [Ventolin HFA Inhaler -] 1 - 2 inh PO Q4H 09/13/17 Docusate Sodium [Colace -] 100 mg PO DAILY 09/13/17 Folic Acid 1 mg PO DAILY 09/13/17 Linaclotide [Linzess] 145 mcg PO DAILY 09/13/17 Umeclidinium Brm/Vilanterol Tr [Anoro Ellipta 62.5-25 Mcg INH] 1 each IH DAILY 09/13/17 Atorvastatin Calcium [Lipitor] 10 mg PO DAILY 01/25/19 Icosapent Ethyl [Vascepa] 2 gm PO BID 01/25/19 Insulin Glargine,Hum.rec.anlog [Basaglar Kwikpen U-100] 20 unit SQ DAILY Ranolazine [Ranexa] 1,000 mg PO BID 01/25/19 Eltrombopag Olamine [Promacta] 100 mg PO 01/28/19 Acetaminophen [Tylenol .Regular Strength -] 650 mg PO Q4H PRN tablet 02/01/19 Apixaban [Eliquis -] 5 mg PO BID #60 tablet 02/01/19 Atorvastatin Ca [Lipitor] 10 mg PO HS tablet 02/01/19 Folic Acid - 1 mg PO DAILY tablet 02/01/19 Furosemide 80 mg PO DAILY #30 tablet 02/01/19 Insulin Sliding Scale [Novolog Vial Sliding Scale -] 1 vial SQ ACHS units 02/01 Meclizine HCl [Antivert -] 25 mg PO DAILY tablet 02/01/19 Metoprolol Succinate [Toprol XL -] 150 mg PO DAILY #30 tab.sr.24h 02/01/19 Polyethylene Glycol 3350 [Miralax 119 gm Btl -] 17 gm PO DAILY bottle 02/01/19 Ranolazine [Ranexa -] 1,000 mg PO BID tab 02/01/19 Sodium Bicarbonate - 650 mg PO BID tablet 02/01/19 Umeclidinium Brm/Vilanterol Tr [Anoro Ellipta 62.5-25 Mcg INH] 1 puff IH DAILY inhaler 02/01/19 Assessment/Plan: Patient is 73 y/o male with past medical history Anemia, COPD on O2, sleep apnea , heart failure, CABG 2014, diabetes, HTN, hypercholesterolemia, and thyroid disease, recent discharge 02/01/19 for SOB now brought in by son after finding him on floor with bruised R flank. #S/p Fall: Pt found on floor, unable to provide hx of fall No obvious head trauma CT head stat- pending pt on eliquis and ASA at home Fall precautions- bedrails Cardiac profile- Follow CPK Gentle hydration NS@75 Obs Hold eliquis and ASA pending head CT PT Hold meclizine in setting of recent fall #Hyperglycemia in DM Last [id number]-0.5 ISS ACHS BGM ACHS Resume glargine 20u daily #Hyponatremia In setting of dehydration vs hyperglycemia 128- corrected 132 Gentle hydration Cont ISS #JANETH on CKD CR-2.0 from 1.4 Likely in setting of dehydration with hyperglycemia s/p fall monitor CK Gentle hydration Hold lasix #Aflutter EKG unchanged from prior NO SOB, no CP Resume metoprolol for rate control Resume eliquis if head CT negative #Hx of Anemia Stable post discharge Head CT s/p R/O ICH Cont folic acid Follow CBC #chronic hypoxic/hypercapnic respiratory failure COPD on O2 Cont supplemental oxygen to maintain sats >90% Not in acute exacerbation at this time Cont Anoro #sleep apnea Cont to monitor #heart failure Recent ECHO-01/25-Regional wall motion abnormality cannot be R/O, EF not documented Does not appear overloaded at this time Hold lasix Gentle hydration in JANETH on CKD #CABG [address] head read Cont lipitor #HTN Cont metoprolol #hypercholesterolemia Cont Eltrombopag Olamine -Promacta #thyroid disease No medication noted Medrec needed in am #Constipation Cont bowel regimen #FEN NS@75 (K-4.5) Monitor lytes, replete as needed Diabetic diet #PPx To resume eliquis if head CT negative #Dispo: Obs pending PT eval and recommendations Visit type - Emergency Visit Emergency Visit: Yes Care time: The patient presented to the Emergency Department on the above date and was hospitalized for further evaluation of their emergent condition. - New Patient This patient is new to me today: Yes Date on this admission: 02/02/19 - Critical Care Critical Care patient: No
[2019-02-02] MEDS ORDERED: morphine CARPU-JECT 2 MG/1 ML DISP.SYRIN IVPUSH ONE (05:26)
[2019-02-02] MEDS ORDERED: morphine SULFATE 4 MG/ML VIAL ONE (05:28)
[2019-02-02] MEDS: SODIUM CHLORIDE 1,000 ML IV SCH ×2 (05:55→12:08)
--- NOTE | 2019-02-02 06:43 | PN ---
Teaching Attending Note Name of Resident: Graciela Garcia ATTENDING PHYSICIAN STATEMENT I saw and evaluated the patient. Chart, data, imaging reviewed. I reviewed the resident's note and discussed the case with the resident. I agree with the resident's findings and plan as documented. SUBJECTIVE: The patient is a 73 year old male, with a significant PMH of Anemia, COPD on O2 , sleep apnea, HF, CABG (2004), diabetes, HTN, hypercholesterolemia, thyroid disease, aflutter just discharged from inpatient after presented with shortness of breath, returns after ecchymosis noted on right lateral chest. Pt denied fall and atrributed bruise to intense pruritus. He mentioned history of falls- last one 2 months ago. Walks with cane and walker. OBJECTIVE: Last Vital Signs Temp Pulse Resp BP Pulse Ox 99.5 F 111 H 20 126/72 95 02/02/19 00:24 02/02/19 04:26 02/02/19 04:26 02/02/19 04:26 02/02/19 06:16 general- nad heent- dry mucous membranes, no sinus tenderness cv-s1+[id number]+[id number] chest clear breath sounds, right sided ecchymosis, mild tenderness abdomen -obese, bs+, nt ext- no pedal edema or clubbing Abnormal Lab Results 02/02/19 02/02/19 02/02/19 01:04 01:04 01:04 WBC 10.3 H RBC 2.54 L Hgb 8.0 L Hct 24.4 L MCV 96.4 H RDW 31.7 H Monocytes % 17.9 H Monocytes % (Manual) 14 H PT with INR 20.20 H INR 1.70 H Sodium 128 L Chloride 91 L Anion Gap 7 L BUN 42 H Creatinine 2.0 H#AK Random Glucose 328 H* Antibody Screen 02/02/19 01:04 WBC RBC Hgb Hct MCV RDW Monocytes % Monocytes % (Manual) PT with INR INR Sodium Chloride Anion Gap BUN Creatinine Random Glucose Antibody Screen Positive H imaging reviewed- no right rib fractures noted on CXR, will await official read ekg -a-flutter ASSESSMENT AND PLAN: #Unsteady gait -observation -bed rest -fall precautions -PT evaluation -f/u right rib xray #Psuedohyponatremia- corrected Na- 133 -gentle IV fluid hydration -repeat BMP #Hyperglycemia -IV fluid hydration -insulin sliding scale -a1c #JANETH on ckd- likely prerenal azotemia given dehydration -renal u/s -serum, urine osm -urine cr, na -avoid nephrotoxins -i/o -daily weights heparin sc for dvt ppx -c/w home meds -see resident note for details
[2019-02-02] MEDS: INSULIN SLIDING SCALE (NOVOLOG) 1 VIAL SQ SCH ×4 (06:57→21:54)
[2019-02-02] MEDS ORDERED: INSULIN NPH 100 UNITS/ML *VIAL ONE (07:00)
[2019-02-02 08:18] LABS: BASO % 0.3 % (0-2.0); EOS % 0.9 % (0-4.5); HEMATOCRIT 25.9 % (35.4-49); HEMOGLOBIN 8.3 GM/dL (11.7-16.9); LYMPH % 9.7 % (8-40); MCH 30.9 pg (25.7-33.7); MCHC 32.2 g/dl (32.0-35.9); MEAN PLT VOLUME 10.3 fl (7.5-11.1); MONO % 20.9 % (3.8-10.2); NEUT % 68.2 % (42.8-82.8); PLATELET COUNT 197 K/MM3 (134-434); RDW 31.1 % (11.9-15.9); WHITE BLOOD COUNT 8.1 K/mm3 (4.0-10.0)
[2019-02-02 08:46] LABS: ALBUMIN 3.5 g/dl (3.4-5.0); ALK PHOS 45 U/L (45-117); ANION GAP 7 MMOL/L (8-16); BILIRUBIN,TOTAL 1.1 mg/dL (0.2-1); BLOOD UREA NITROGEN 38 mg/dL (7-18); CALCIUM 8.5 mg/dL (8.5-10.1); CHLORIDE 98 mmol/L (98-107); CO2 28 mmol/L (21-32); CREATININE 1.8 mg/dL (0.55-1.3); GLUCOSE,RANDOM 257 mg/dL (74-106); MAGNESIUM 1.9 mg/dL (1.8-2.4); POTASSIUM 4.5 mmol/L (3.5-5.1); SGOT/AST 17 U/L (15-37); SGPT/ALT 18 U/L (13-61); SODIUM 133 mmol/L (136-145); TOT PROT 7.1 g/dl (6.4-8.2)
[2019-02-02] MEDS ORDERED: INSULIN (LEVEMIR) 100 UNITS/ML UNITS SQ ONE (08:46)
[2019-02-02] MEDS: INSULIN (LEVEMIR) 100 UNITS/ML UNITS SQ SCH (09:00)
[2019-02-02] MEDS: POLYETHYLENE GLYCOL 3350 119 GM BTL PO SCH (09:17)
[2019-02-02] MEDS: APIXABAN 5 MG TABLET PO SCH ×2 (09:17→21:53)
[2019-02-02] MEDS: FOLIC ACID 1 MG TABLET (FP) PO SCH (09:17)
[2019-02-02] MEDS: RANOLAZINE E.R. 1,000 MG TABLET (FP) PO SCH ×2 (09:17→21:54)
[2019-02-02] MEDS: SODIUM BICARBONATE 650 MG TABLET PO SCH ×2 (09:18→21:53)
[2019-02-02 09:46] LABS: INR 1.58 (0.83-1.09); PROTHROMBIN TIME (PATIENT) 18.7 SEC (9.7-13.0)
[2019-02-02 09:48] LABS: ACTIVATED PTT 33.4 SECONDS (25.2-36.5)
[2019-02-02] MEDS ORDERED: METOPROLOL SUCCINATE 100 MG, METOPROLOL SUCCINATE 50 MG PO SCH (10:00)
[2019-02-02] MEDS ORDERED: ASPIRIN COATED 81 MG TABLET.EC PO SCH (10:00)
[2019-02-02] MEDS ORDERED: PATIENT'S OWN MEDICATION (NON-FORMULARY) (Linaclotide [Linzess] 145 MCG) PO SCH (10:00)
[2019-02-02 10:59] LABS: ANISOCYTOSIS 1+; MACROCYTOSIS 1+; OVALOCYTE 1+; PLATELET ESTIMATE NORMAL; TEAR DROP CELLS 1+
--- NOTE | 2019-02-02 11:04 | PN ---
Progress Note, Physician Chief Complaint: EVENTS AND NOTES REVIEWED IN BED TELE 4W DENIES PAIN AT THIS TIME - Current Medication List Current Medications: Active Medications Acetaminophen (Tylenol -) 650 mg PO Q4H PRN PRN Reason: MODERATE PAIN Apixaban (Eliquis -) 5 mg PO BID [facility] Last Admin: 02/02/19 09:17 Dose: 5 mg Aspirin (Ecotrin -) 81 mg PO DAILY [facility] Last Admin: 02/02/19 09:12 Dose: 81 mg Atorvastatin Calcium (Lipitor -) 10 mg PO HS [facility] Folic Acid (Folic Acid -) 1 mg PO DAILY [facility] Last Admin: 02/02/19 09:17 Dose: 1 mg Sodium Chloride (Normal Saline -) 1,000 mls @ 75 mls/hr IV ASDIR [facility] Last Admin: 02/02/19 05:55 Dose: 75 mls/hr Insulin Aspart (Novolog Vial Sliding Scale -) 1 vial SQ ACHS [facility]; Protocol Last Admin: 02/02/19 06:57 Dose: 6 unit Insulin Detemir (Levemir Vial) 20 units SQ AM [facility] Last Admin: 02/02/19 09:00 Dose: 20 unit Metoprolol Succinate 100 mg/ (Metoprolol Succinate 50 mg) 150 mg PO DAILY [facility] Last Admin: 02/02/19 09:18 Dose: 150 mg Non-Formulary Medication (Icosapent Ethyl [Vascepa]) 2 gm PO BID [facility] Non-Formulary Medication (Linaclotide [Linzess]) 145 mcg PO DAILY [facility] Polyethylene Glycol (Miralax (For Daily Use) -) 17 gm PO DAILY [facility] Last Admin: 02/02/19 09:17 Dose: 17 gm Ranolazine (Ranexa -) 1,000 mg PO BID [facility] Last Admin: 02/02/19 09:17 Dose: 1,000 mg Sodium Bicarbonate (Sodium Bicarbonate -) 650 mg PO BID [facility] Last Admin: 02/02/19 09:18 Dose: 650 mg Umeclidinium/Vilanterol (Anoro Ellipta 62.5-25 Mcg Inh) 1 puff IH DAILY [facility] - Objective Vital Signs: Vital Signs Temperature 98.0 F 02/02/19 09:35 Pulse Rate 114 H 02/02/19 09:35 Respiratory Rate 16 02/02/19 09:35 Blood Pressure 116/57 L 02/02/19 09:35 O2 Sat by Pulse Oximetry (%) 98 02/02/19 09:35 Constitutional: Yes: Mild Distress Cardiovascular: Yes: Regular Rate and Rhythm Respiratory: Yes: WNL Gastrointestinal: Yes: Soft Genitourinary: Yes: WNL Musculoskeletal: Yes: WNL Edema: Yes ...Motor Strength: WNL Psychiatric: Yes: WNL Labs: CBC, BMP 02/02/19 07:56 02/02/19 07:56 INR, PTT INR 1.58 (0.83-1.09) H 02/02/19 07:56 Problem List - Problems (1) (HFpEF) heart failure with preserved ejection fraction Code(s): I50.30 - UNSPECIFIED DIASTOLIC (CONGESTIVE) HEART FAILURE (2) Anemia Code(s): D64.9 - ANEMIA, UNSPECIFIED (3) Atrial fibrillation with RVR Code(s): I48.91 - UNSPECIFIED ATRIAL FIBRILLATION (4) Atrial flutter Code(s): I48.92 - UNSPECIFIED ATRIAL FLUTTER (5) Diabetes Code(s): E11.9 - TYPE 2 DIABETES MELLITUS WITHOUT COMPLICATIONS Qualifiers: Diabetes mellitus type: type 2 (6) Elevated troponin Code(s): R74.8 - ABNORMAL LEVELS OF OTHER SERUM ENZYMES (7) History of heart artery stent Code(s): Z95.5 - PRESENCE OF CORONARY ANGIOPLASTY IMPLANT AND GRAFT (8) Hypercholesterolemia Code(s): E78.00 - PURE HYPERCHOLESTEROLEMIA, UNSPECIFIED (9) Myocardial infarct, old Code(s): I25.2 - OLD MYOCARDIAL INFARCTION Assessment/Plan CARDIOLOGY EVAL APPRECIATED TELEMETRY MONITORING CHECK SERIES TROPONINS EKG LABS REVIEWED CARDIAC EVAL IN PROGRESS
[2019-02-02] MEDS ORDERED: PT OWN MED DRAWER 7, Y5N ONE ×2 (12:21→13:47)
[2019-02-02] MEDS: UMECLIDINIUM/VILANTEROL (ANORO) 62.5/25 MCG INHALER IH SCH (12:25)
--- NOTE | 2019-02-02 14:09 | EKG ---
Test Reason : Blood Pressure : / mmHG Vent. Rate : 112 BPM Atrial Rate : 220 BPM P-R Int : 000 ms QRS Dur : 100 ms QT Int : 302 ms P-R-T Axes : 258 049 132 degrees QTc Int : 412 ms ATRIAL FLUTTER WITH VARIABLE A-V BLOCK NONSPECIFIC ST AND T WAVE ABNORMALITY ABNORMAL ECG Confirmed by MD CRISTÓBAL, ADORE ([id number]) on 02/02/2019 2:08:56 PM Referred By: Confirmed By:ADORE AMBROCIO MD
--- NOTE | 2019-02-02 14:46 | PN ---
Progress Note (short form) - Note Progress Note: Coverage for Drs. Marlen Macario/Amee Mackenzie Chief Complaint: Chart reviewed, events noted, fall with chest wall trauma with chest pain, reports chronic dyspnea History of Present Illness: Seen and examined on telemetry. Full consult dictated Medications: Current Medications Acetaminophen (Tylenol -) 650 mg PO Q4H PRN PRN Reason: MODERATE PAIN Apixaban (Eliquis -) 5 mg PO BID [facility] Last Admin: 02/02/19 09:17 Dose: 5 mg Aspirin (Ecotrin -) 81 mg PO DAILY [facility] Last Admin: 02/02/19 09:12 Dose: 81 mg Atorvastatin Calcium (Lipitor -) 10 mg PO HS [facility] Folic Acid (Folic Acid -) 1 mg PO DAILY [facility] Last Admin: 02/02/19 09:17 Dose: 1 mg Sodium Chloride (Normal Saline -) 1,000 mls @ 75 mls/hr IV ASDIR [facility] Last Admin: 02/02/19 12:08 Dose: 75 mls/hr Insulin Aspart (Novolog Vial Sliding Scale -) 1 vial SQ ACHS [facility]; Protocol Last Admin: 02/02/19 12:13 Dose: 4 unit Insulin Detemir (Levemir Vial) 20 units SQ AM [facility] Last Admin: 02/02/19 09:00 Dose: 20 unit Metoprolol Succinate 100 mg/ (Metoprolol Succinate 50 mg) 150 mg PO DAILY [facility] Last Admin: 02/02/19 09:18 Dose: 150 mg Non-Formulary Medication (Icosapent Ethyl [Vascepa]) 2 gm PO BID [facility] Non-Formulary Medication (Linaclotide [Linzess]) 145 mcg PO DAILY [facility] Polyethylene Glycol (Miralax (For Daily Use) -) 17 gm PO DAILY [facility] Last Admin: 02/02/19 09:17 Dose: 17 gm Ranolazine (Ranexa -) 1,000 mg PO BID [facility] Last Admin: 02/02/19 09:17 Dose: 1,000 mg Sodium Bicarbonate (Sodium Bicarbonate -) 650 mg PO BID [facility] Last Admin: 02/02/19 09:18 Dose: 650 mg Umeclidinium/Vilanterol (Anoro Ellipta 62.5-25 Mcg Inh) 1 puff IH DAILY [facility] Last Admin: 02/02/19 12:25 Dose: 1 puff Review of Systems Cardiovascular: As noted above Respiratory: denies: Cough or Sputum Production Gastrointestinal: denies: Nausea, Vomiting, Diarrhea, Constipation or Abdominal Discomfort Musculoskeletal: Chest Wall Tenderness Endocrine: No Symptoms Reported Vital Signs: Last Vital Signs Temp Pulse Resp BP Pulse Ox 99.0 F 102 H 20 108/71 97 02/02/19 14:09 02/02/19 14:09 02/02/19 14:09 02/02/19 14:09 02/02/19 11:00 Intake & Output 01/30/19 01/31/19 02/01/19 02/02/19 23:59 23:59 23:59 23:59 Weight 226 lb Constitutional: No Distress, Calm, Thin Neck: Supple Negative JVD Respiratory: Diminished Breath Sounds Bilaterally Cardiovascular: S1 S2 Regular Rate and Rhythm tachycardia Gastrointestinal: Soft Benign Normal Bowel Sounds Ext: No Edema Labs: Troponin, BNP 02/02/19 02/02/19 06:45 11:41 Troponin I 0.26 H 0.27 H CBC, BMP 02/02/19 07:56 02/02/19 07:56 Hepatic Panel Total Bilirubin 1.1 mg/dL (0.2-1) H 02/02/19 07:56 AST 17 U/L (15-37) 02/02/19 07:56 ALT 18 U/L (13-61) 02/02/19 07:56 Alkaline Phosphatase 45 U/L (45-117) 02/02/19 07:56 Albumin 3.5 g/dl (3.4-5.0) 02/02/19 07:56 INR, PTT INR 1.58 (0.83-1.09) H 02/02/19 07:56 Assessment/Plan ASSESSMENT: 1. Fall with chest wall trauma, no reported syncope 2. CAD post CABG/PCI/GERALD demand ischemic injury angina pectoris 3. Diastolic/systolic LV dysfunction with clinical class 0-I NYHA classification LV failure 4. Persistent atrial flutter with rapid ventricular response [id number] score of 5 5. Post prophylactic ICD implant 6. HTN 7. DM 8. Hypercholesterolemia 9. COPD 10. CKD 11. Anemia PLAN: 1. Recommend D/C ASA and continue Eliquis with caution, A/C should be continued indefinitely unless it is absolutely contraindicated considering the above noted [id number] score of 5 2. Continue Toprol XL 3. Continue Ranexa 4. Ideally should be on ACEI or ARBS unless it is absolutely contraindicated 5. Continue Lipitor 6. Resume diuretics/Lasix with close monitoring of renal function and electrolytes 7. Consider proceeding with ERIKA guided synchronized cardioversion of the above noted arrhythmia/atrial flutter Thank you for the consult Melany Freeman M.D.
--- NOTE | 2019-02-02 16:39 | CONS ---
DATE OF CONSULTATION: 02/02/2019 CONSULTATION REQUESTED BY: Nikita Salter MD CHIEF COMPLAINT: Cardiovascular evaluation post fall, elevated troponin I level. Coverage for Dr. Maddox, Dr. Mackenzie. HISTORY: A 73-year-old male of descent with known history of coronary artery disease post coronary artery bypass grafting, post percutaneous coronary intervention stenting, angina pectoris, diastolic left ventricular , persistent atrial flutter on anticoagulation therapy, [id number] score of 5, post single-chamber ICD implantation for primary prophylaxis, hypertensive cardiovascular disease, diabetes mellitus, hypercholesterolemia, chronic obstructive pulmonary disease, chronic kidney disease, who presented to [facility] today after being discharged yesterday following a hospitalization with congestive heart failure. Patient apparently fell at home and has been complaining of right-sided chest wall tenderness. Patient continues to report persistence of dyspnea with [id number] physical exertion. Patient denies any orthopnea or paroxysmal nocturnal dyspnea. Patient reports intermittent bilateral lower extremity edema that worsens in the latter part of the day. Patient denies any palpitation, dizziness, lightheadedness, or syncope. Patient reports fatigue and tiredness. PAST MEDICAL HISTORY: Coronary artery disease post coronary artery bypass grafting, post percutaneous coronary intervention stenting, angina pectoris, diastolic/systolic left ventricular dysfunction with chronic class 1 [place] [employer] classification left ventricular failure, persistent atrial flutter on anticoagulation therapy, [id number] score of 5, single-chamber ICD implantation for primary prophylaxis, hypertensive cardiovascular disease, diabetes mellitus, hypercholesterolemia, chronic obstructive pulmonary disease, chronic kidney disease. SOCIAL HISTORY: Prior history of smoking. FAMILY HISTORY: Positive coronary artery disease. ALLERGIES: None reported. MEDICATIONS: Medical therapy currently includes Tylenol 650 mg every 4 hours as needed, Eliquis 5 mg twice a day, aspirin 81 mg once a day, Lipitor 10 mg once a day, folic acid 1 mg once a day, insulin coverage, Toprol-XL 150 mg once a day, Vascepa 2 g twice a day, Linzess 145 mcg once a day, Ranexa 1000 mg once a day, sodium bicarbonate 650 mg twice a day, Anoro Ellipta inhaler. REVIEW OF SYSTEMS: Head and Neck: Denies headache, photophobia, blurring of vision. Respiratory: No cough or sputum production. Cardiovascular: As noted above. Gastrointestinal: No nausea, vomiting, diarrhea, abdominal discomfort. Musculoskeletal: Chest wall discomfort. Genitourinary: No symptoms reported. PHYSICAL EXAMINATION: Vital Signs: Blood pressure is 108/71 mmHg. Pulse rate is 102 beats per minute. Head and Neck: Pupils equally react to light and accommodation. Extraocular muscles are intact. Anicteric sclerae. Negative JVD. No bruit appreciated. Chest: Diminished breath sounds at the bases bilaterally. Cardiovascular: S1, S2, regular, tachycardic. Grade 1/6 systolic ejection murmur. Abdomen: Soft, benign, normoactive bowel sounds. Extremities: Trace edema. distal pulses. No calf tenderness. DIAGNOSTIC DATA: Electrocardiogram reveals atrial flutter with 2:1 conduction and nonspecific T-wave abnormality. CPK, troponin I were noted. CBC with a white cell count 8.1, hemoglobin 8.3, platelets 197. Basic metabolic profile revealed a sodium of 133, potassium 4.5, BUN of 38, creatinine 1.8, glucose 257. INR 1.58. ASSESSMENT: 1. Fall with chest wall trauma. No reported syncope. 2. Coronary artery disease post coronary artery bypass grafting, post percutaneous coronary intervention stenting, demand ischemic injury, angina pectoris. 3. Diastolic/systolic left ventricular dysfunction with clinical class 0-1 [place] [employer] classification left ventricular failure. 4. Persistent atrial flutter with rapid ventricular response, [id number] score of 5. 5. Post prophylactic implantable cardioverter-defibrillator implantation. 6. Hypertensive cardiovascular disease. 7. Diabetes mellitus. 8. Hypercholesterolemia. 9. Chronic obstructive pulmonary disease. 10. Chronic kidney disease. 11. Anemia. RECOMMENDATIONS: 1. Recommend discontinuation of aspirin therapy and continuation of Eliquis therapy with caution. Anticoagulation to be continued indefinitely unless it is absolutely contraindicated considering the above noted [id number] score of 5. 2. Continuation of Toprol-XL therapy and titration of dosage. 3. Continuation of Ranexa therapy and titration of dosage. 4. Ideally, patient should be on CROW inhibitor, angiotensin receptor blockers unless it is absolutely contraindicated. 5. Continuation of Lipitor therapy. 6. Resumption of diuretic therapy with close monitoring of renal function and electrolytes. 7. Consider proceeding with transesophageal echocardiography-guided synchronized cardioversion of the above noted arrhythmia, atrial flutter. Above was reviewed in detail with the patient and his son who was at the bedside. Thank you for the kind referral. POTRILLO MORGAN M.D. JERARDO/[id number]
[2019-02-02] MEDS: ATORVASTATIN CA 10 MG TABLET (FP) PO SCH (21:53)
[2019-02-02] MEDS: OMEGA-3 ACID ETHYL ESTERS (FATTY-ACIDS) 1 GM CAPSULE (FP) PO SCH (21:53)
[2019-02-03] MEDS: ACETAMINOPHEN 325 MG TABLET (FP) PO PRN ×2 (02:51→11:26)
[2019-02-03] MEDS: SODIUM CHLORIDE 1,000 ML IV SCH (06:20)
[2019-02-03] MEDS: INSULIN (LEVEMIR) 100 UNITS/ML UNITS SQ SCH (06:20)
[2019-02-03] MEDS: INSULIN SLIDING SCALE (NOVOLOG) 1 VIAL SQ SCH ×4 (06:20→21:47)
--- NOTE | 2019-02-03 07:35 | PN ---
Progress Note (short form) - Note Progress Note: Coverage for Drs. Marlen Macario/Amee Mackenzie Chief Complaint: Events noted, notes reviewed, complaining of dyspnea, denies any chest pain, given IV fluid on admission, remains in atrial flutter with periods of rapid ventricular response, ATP pacing noted for rapid atrial flutter History of Present Illness: Seen and examined on telemetry. Events noted, notes reviewed, complaining of dyspnea, denies any chest pain, given IV fluid on admission, remains in atrial flutter with periods of rapid ventricular response, ATP pacing noted for rapid atrial flutter Medications: Current Medications Acetaminophen (Tylenol -) 650 mg PO Q4H PRN PRN Reason: MODERATE PAIN Last Admin: 02/03/19 02:51 Dose: 650 mg Apixaban (Eliquis -) 5 mg PO BID [facility] Last Admin: 02/02/19 21:53 Dose: 5 mg Aspirin (Ecotrin -) 81 mg PO DAILY [facility] Last Admin: 02/02/19 09:12 Dose: 81 mg Atorvastatin Calcium (Lipitor -) 10 mg PO HS [facility] Last Admin: 02/02/19 21:53 Dose: 10 mg Folic Acid (Folic Acid -) 1 mg PO DAILY [facility] Last Admin: 02/02/19 09:17 Dose: 1 mg Sodium Chloride (Normal Saline -) 1,000 mls @ 75 mls/hr IV ASDIR [facility] Last Admin: 02/03/19 06:20 Dose: 75 mls/hr Insulin Aspart (Novolog Vial Sliding Scale -) 1 vial SQ ACHS [facility]; Protocol Last Admin: 02/03/19 06:20 Dose: 2 unit Insulin Detemir (Levemir Vial) 20 units SQ AM [facility] Last Admin: 02/03/19 06:20 Dose: 20 unit Metoprolol Succinate 100 mg/ (Metoprolol Succinate 50 mg) 150 mg PO DAILY [facility] Last Admin: 02/02/19 09:18 Dose: 150 mg Non-Formulary Medication (Linaclotide [Linzess]) 145 mcg PO DAILY [facility] [id number] Ethyl Esters (Lovaza -) 2 gm PO BID [facility] Last Admin: 02/02/19 21:53 Dose: 2 gm Polyethylene Glycol (Miralax (For Daily Use) -) 17 gm PO DAILY [facility] Last Admin: 02/02/19 09:17 Dose: 17 gm Ranolazine (Ranexa -) 1,000 mg PO BID [facility] Last Admin: 02/02/19 21:54 Dose: 1,000 mg Sodium Bicarbonate (Sodium Bicarbonate -) 650 mg PO BID [facility] Last Admin: 02/02/19 21:53 Dose: 650 mg Umeclidinium/Vilanterol (Anoro Ellipta 62.5-25 Mcg Inh) 1 puff IH DAILY [facility] Last Admin: 02/02/19 12:25 Dose: 1 puff Review of Systems Cardiovascular: As noted above Respiratory: denies: Cough or Sputum Production Gastrointestinal: denies: Nausea, Vomiting, Diarrhea, Constipation or Abdominal Discomfort Musculoskeletal: Chest Wall Tenderness Endocrine: No Symptoms Reported Vital Signs: Last Vital Signs Temp Pulse Resp BP Pulse Ox 99.1 F 110 H 20 100/75 94 L 02/03/19 06:00 02/03/19 06:00 02/03/19 06:00 02/03/19 06:00 02/02/19 20:54 Intake & Output 01/31/19 02/01/19 02/02/19 02/03/19 23:59 23:59 23:59 23:59 Intake Total 945 900 Output Total 900 Balance 45 900 Weight 226 lb 229 lb 4 oz Constitutional: No Distress, Calm, Thin Neck: Supple Negative JVD Respiratory: Diminished Breath Sounds Bilaterally Cardiovascular: S1 S2 Irregularly Irregular Gastrointestinal: Soft Benign Normal Bowel Sounds Ext: No Edema Labs: Troponin, BNP 02/02/19 02/02/19 06:45 11:41 Troponin I 0.26 H 0.27 H CBC, BMP 02/02/19 07:56 02/02/19 07:56 Hepatic Panel Total Bilirubin 1.1 mg/dL (0.2-1) H 02/02/19 07:56 AST 17 U/L (15-37) 02/02/19 07:56 ALT 18 U/L (13-61) 02/02/19 07:56 Alkaline Phosphatase 45 U/L (45-117) 02/02/19 07:56 Albumin 3.5 g/dl (3.4-5.0) 02/02/19 07:56 INR, PTT INR 1.58 (0.83-1.09) H 02/02/19 07:56 Assessment/Plan ASSESSMENT: 1. Fall with chest wall trauma, no reported syncope 2. CAD post CABG/PCI/GERALD demand ischemic injury angina pectoris 3. Acute on chronic class I-II NYHA classification LV failure related to diastolic/systolic LV dysfunction, clinical decompensation 4. Persistent atrial flutter with rapid ventricular response [id number] score of 5, ATP pacing noted inappropriate 5. Post prophylactic ICD implant 6. HTN 7. DM 8. Hypercholesterolemia 9. COPD 10. CKD 11. Anemia PLAN: 1. As outlined yesterday recommend D/C ASA and continue Eliquis with caution, A/ C should be continued indefinitely unless it is absolutely contraindicated considering the above noted [id number] score of 5 2. Change Toprol XL to twice daily administration and add Amiodarone/short term to assist with rate control and possible conversion 3. Continue Ranexa 4. Ideally should be on ACEI or ARBS unless it is absolutely contraindicated, to be discussed with renal service 5. Continue Lipitor 6. IV Lasix this AM in view of the above noted presentation, diuretic use with close monitoring of renal function and electrolytes 7. Consider proceeding with ERIKA guided synchronized cardioversion of the above noted arrhythmia/atrial flutter Thank you for the consult Melany Freeman M.D.
--- NOTE | 2019-02-03 08:25 | CON.NEP ---
Consult Consult Specialty:: nephrology - History of Present Illness Chief Complaint: itching History of Present Illness: I know this patient from the office. He has refractory anemia with ringed sideroblasts. Was discharged and came back after a fall and injury to his chest. He however says he had itching and thats all he complained about. Has h /o cad, s/p pci and stent. I sent him to hospital on 01/25 when i found him very tachyucardic and with chf. He was place on ivf or volume depletion but he is edematous and has an aicd - History Source History Provided By: Patient, Medical Record Limitations to Obtaining History: Clinical Condition - Past Medical History Cardio/Vascular: Yes: CAD (S/P CABG), CHF (SHF- EF unknown) Pulmonary: Yes: COPD, O2 Dependent Renal/: Yes: Renal Inusuff Heme/Onc: Yes: Anemia - Past Surgical History Past Surgical History: Yes: Bypass (2004), Stent (2009) - Alcohol/Substance Use Hx Alcohol Use: No - Smoking History Smoking history: Never smoked Have you smoked in the past 12 months: No If you are a former smoker, when did you quit?: 15 YRS - Social History ADL: Independent History of Recent Travel: No Home Medications - Allergies Allergies/Adverse Reactions: Allergies Allergy/AdvReac Type Severity Reaction Status Date / Time No Known Allergies Allergy Verified 01/25/19 12:44 - Home Medications Home Medications: Ambulatory Orders Aspirin [Aspirin EC] 81 mg PO DAILY 09/12/17 Insulin Aspart [Novolog Flexpen] 5 unit SQ TID 09/12/17 Albuterol Sulfate Inhaler - [Ventolin HFA Inhaler -] 1 - 2 inh PO Q4H 09/13/17 Docusate Sodium [Colace -] 100 mg PO DAILY 09/13/17 Folic Acid 1 mg PO DAILY 09/13/17 Linaclotide [Linzess] 145 mcg PO DAILY 09/13/17 Umeclidinium Brm/Vilanterol Tr [Anoro Ellipta 62.5-25 Mcg INH] 1 each IH DAILY 09/13/17 Atorvastatin Calcium [Lipitor] 10 mg PO DAILY 01/25/19 Icosapent Ethyl [Vascepa] 2 gm PO BID 01/25/19 Insulin Glargine,Hum.rec.anlog [Basaglar Kwikpen U-100] 20 unit SQ DAILY Ranolazine [Ranexa] 1,000 mg PO BID 01/25/19 Eltrombopag Olamine [Promacta] 100 mg PO 01/28/19 Acetaminophen [Tylenol .Regular Strength -] 650 mg PO Q4H PRN tablet 02/01/19 Apixaban [Eliquis -] 5 mg PO BID #60 tablet 02/01/19 Atorvastatin Ca [Lipitor] 10 mg PO HS tablet 02/01/19 Folic Acid - 1 mg PO DAILY tablet 02/01/19 Furosemide 80 mg PO DAILY #30 tablet 02/01/19 Insulin Sliding Scale [Novolog Vial Sliding Scale -] 1 vial SQ ACHS units 02/01 Meclizine HCl [Antivert -] 25 mg PO DAILY tablet 02/01/19 Metoprolol Succinate [Toprol XL -] 150 mg PO DAILY #30 tab.sr.24h 02/01/19 Polyethylene Glycol 3350 [Miralax 119 gm Btl -] 17 gm PO DAILY bottle 02/01/19 Ranolazine [Ranexa -] 1,000 mg PO BID tab 02/01/19 Sodium Bicarbonate - 650 mg PO BID tablet 02/01/19 Umeclidinium Brm/Vilanterol Tr [Anoro Ellipta 62.5-25 Mcg INH] 1 puff IH DAILY inhaler 02/01/19 Review of Systems - Review of Systems Constitutional: reports: Weakness Eyes: reports: No Symptoms HENT: reports: No Symptoms Neck: reports: No Symptoms Cardiovascular: reports: Chest Pain, Edema, Palpitations, Shortness of Breath Respiratory: reports: SOB Gastrointestinal: reports: No Symptoms Genitourinary: reports: No Symptoms Breasts: reports: No Symptoms Reported Musculoskeletal: reports: No Symptoms Integumentary: reports: No Symptoms Neurological: reports: No Symptoms Endocrine: reports: No Symptoms Hematology/Lymphatic: reports: No Symptoms Psychiatric: reports: No Symptoms Nephrology Consult - Height Height: 5 ft 9 in - Weight Weight: 229 lb 4 oz - BMI Body Mass Index (BMI): 33.8 - Lab Results CBC,BMP: CBC, BMP 02/02/19 07:56 02/02/19 07:56 Anion Gap: Anion Gap Anion Gap 7 MMOL/L (8-16) L 02/02/19 07:56 - Imaging Chest X-ray: Report Reviewed - Physical Examination Vital Signs: Vital Signs Temperature 99.1 F 02/03/19 06:00 Pulse Rate 110 H 02/03/19 06:00 Respiratory Rate 02/03/19 06:00 Blood Pressure 100/75 02/03/19 06:00 O2 Sat by Pulse Oximetry (%) 94 L 02/02/19 20:54 Constitutional: Yes: Well Nourished, No Distress, Calm Eyes: Yes: Conjunctiva Clear HENT: Yes: Atraumatic, Normocephalic Neck: Yes: Supple, Trachea Midline Cardiovascular: Yes: Regular Rate and Rhythm, Murmur Respiratory: Yes: Rales Gastrointestinal: Yes: Normal Bowel Sounds Renal/: Yes: WNL Musculoskeletal: Yes: WNL Extremities: Yes: WNL Edema: Yes Edema: LLE: 2+, RLE: 2+ Integumentary: Yes: Bruising Wound/Incision: Yes: Clean/Dry Neurological: Yes: Alert, Oriented Psychiatric: Yes: Alert, Oriented Assessment/Plan IMPRESSION Pt has had stable ckd for several years probably related to dm and htn his anemia is a combination of factors and he is on a study protocol at [facility] dm s/p fall LV dysf PLAN observe dc fluids given edema though it can be from high right sided pressures neuro/cardio eval would discuss with [facility] regarding his study medication- have heme eval.. Dr Boyd saw him obtain ua, try echo again MV
[2019-02-03 08:29] LABS: CHOLESTEROL 97 mg/dL (50-200); HDL CHOLESTEROL 32 mg/dL (40-60); TRIGLYCERIDES 58 mg/dL (0-150)
[2019-02-03] MEDS ORDERED: FUROSEMIDE 40 MG/4 ML INJECTABLE VIAL ONE ×2 (09:03→18:13)
[2019-02-03] MEDS ORDERED: FUROSEMIDE 40 MG/4 ML INJECTABLE VIAL IVPUSH ONE (09:22)
[2019-02-03] MEDS ORDERED: AMIODARONE IN DEXTROSE,ISO-OSM 150 MG/100 ML BAG IVPB ONE (09:22)
[2019-02-03] MEDS: SODIUM BICARBONATE 650 MG TABLET PO SCH ×2 (09:25→23:15)
[2019-02-03] MEDS: OMEGA-3 ACID ETHYL ESTERS (FATTY-ACIDS) 1 GM CAPSULE (FP) PO SCH ×2 (09:25→23:15)
[2019-02-03] MEDS: UMECLIDINIUM/VILANTEROL (ANORO) 62.5/25 MCG INHALER IH SCH (09:26)
[2019-02-03] MEDS: FOLIC ACID 1 MG TABLET (FP) PO SCH (09:26)
[2019-02-03] MEDS: RANOLAZINE E.R. 1,000 MG TABLET (FP) PO SCH ×2 (09:26→23:15)
[2019-02-03] MEDS: APIXABAN 5 MG TABLET PO SCH ×2 (09:26→23:14)
[2019-02-03] MEDS: POLYETHYLENE GLYCOL 3350 119 GM BTL PO SCH (09:26)
[2019-02-03] MEDS: AMIODARONE HCL 200 MG TABLET (FP) PO SCH ×2 (09:50→23:14)
[2019-02-03 10:28] LABS: ARTERIAL BLOOD GAS BASE EXCESS -0.9 meq/l (-2-2); ARTERIAL BLOOD GAS PCO2 34.1 mmHg (35-45); ARTERIAL BLOOD GAS PO2 69.8 mmHg (80-105); ARTERIAL BLOOD GAS pH 7.44 (7.35-7.45)
[2019-02-03 10:33] LABS: ALLENS TEST POSITIVE
--- NOTE | 2019-02-03 11:44 | PN ---
Progress Note, Physician Chief Complaint: AWAKE ALERT BUT AGITATED PATIENT WANTS TO GET UP AND SHOWER HOWEVER HAS UNSTEADY GAIT ON FALL RISKS - Current Medication List Current Medications: Active Medications Acetaminophen (Tylenol -) 650 mg PO Q4H PRN PRN Reason: MODERATE PAIN Last Admin: 02/03/19 11:26 Dose: 650 mg Amiodarone HCl (Cordarone -) 200 mg PO BID [facility] Last Admin: 02/03/19 09:50 Dose: 200 mg Apixaban (Eliquis -) 5 mg PO BID [facility] Last Admin: 02/03/19 09:26 Dose: 5 mg Atorvastatin Calcium (Lipitor -) 10 mg PO HS [facility] Last Admin: 02/02/19 21:53 Dose: 10 mg Folic Acid (Folic Acid -) 1 mg PO DAILY [facility] Last Admin: 02/03/19 09:26 Dose: 1 mg Insulin Aspart (Novolog Vial Sliding Scale -) 1 vial SQ [facility]; Protocol Last Admin: 02/03/19 11:28 Dose: 6 unit Insulin Detemir (Levemir Vial) 20 units SQ AM [facility] Last Admin: 02/03/19 06:20 Dose: 20 unit Lidocaine (Lidoderm Patch -) 1 patch TP DAILY [facility] Metoprolol Succinate (Toprol Xl -) 100 mg PO BID [facility] Last Admin: 02/03/19 09:50 Dose: 100 mg Miscellaneous (Lidoderm Patch Removal) 1 each MC DAILY@2200 [facility] Non-Formulary Medication (Linaclotide [Linzess]) 145 mcg PO DAILY [facility] [id number] Ethyl Esters (Lovaza -) 2 gm PO BID [facility] Last Admin: 02/03/19 09:25 Dose: 2 gm Polyethylene Glycol (Miralax (For Daily Use) -) 17 gm PO DAILY [facility] Last Admin: 02/03/19 09:26 Dose: Not Given Ranolazine (Ranexa -) 1,000 mg PO BID [facility] Last Admin: 02/03/19 09:26 Dose: 1,000 mg Sodium Bicarbonate (Sodium Bicarbonate -) 650 mg PO BID [facility] Last Admin: 02/03/19 09:25 Dose: 650 mg Umeclidinium/Vilanterol (Anoro Ellipta 62.5-25 Mcg Inh) 1 puff IH DAILY [facility] Last Admin: 02/03/19 09:26 Dose: 1 puff - Objective Vital Signs: Vital Signs Temperature 99.1 F 02/03/19 06:00 Pulse Rate 110 H 02/03/19 06:00 Respiratory Rate 20 02/03/19 06:00 Blood Pressure 100/75 02/03/19 06:00 O2 Sat by Pulse Oximetry (%) 94 L 02/02/19 20:54 Constitutional: Yes: Mild Distress Cardiovascular: Yes: Pulse Irregular Respiratory: Yes: Diminished Gastrointestinal: Yes: Abdomen, Obese, Other (RIGHT FLANK ECHYMOSIS) Genitourinary: Yes: WNL Musculoskeletal: Yes: Back Pain Edema: No Peripheral Pulses WNL: Yes Integumentary: Yes: Bruising Wound/Incision: Yes: Clean/Dry Neurological: Yes: Pre-Existing Deficit ...Motor Strength: WNL Psychiatric: Yes: Agitated Labs: CBC, BMP 02/02/19 07:56 02/02/19 07:56 INR, PTT INR 1.58 (0.83-1.09) H 02/02/19 07:56 Problem List - Problems (1) (HFpEF) heart failure with preserved ejection fraction Code(s): I50.30 - UNSPECIFIED DIASTOLIC (CONGESTIVE) HEART FAILURE (2) Anemia Code(s): D64.9 - ANEMIA, UNSPECIFIED (3) Atrial fibrillation with RVR Code(s): I48.91 - UNSPECIFIED ATRIAL FIBRILLATION (4) Atrial flutter Code(s): I48.92 - UNSPECIFIED ATRIAL FLUTTER (5) Diabetes Code(s): E11.9 - TYPE 2 DIABETES MELLITUS WITHOUT COMPLICATIONS Qualifiers: Diabetes mellitus type: type 2 (6) Elevated troponin Code(s): R74.8 - ABNORMAL LEVELS OF OTHER SERUM ENZYMES (7) History of heart artery stent Code(s): Z95.5 - PRESENCE OF CORONARY ANGIOPLASTY IMPLANT AND GRAFT (8) Hypercholesterolemia Code(s): E78.00 - PURE HYPERCHOLESTEROLEMIA, UNSPECIFIED (9) Myocardial infarct, old Code(s): I25.2 - OLD MYOCARDIAL INFARCTION (10) Rib contusion Code(s): S20.219A - CONTUSION OF UNSPECIFIED FRONT WALL OF THORAX, INIT ENCNTR Assessment/Plan CARDIO/RENAL WORKUP IN PROGRESS ON TELE LIDODERM PATCH TO RIGHT RIB AREA PAIN CONTROL FALL RISKS PT EVAL OOB TO CHAIR WITH ASSIST MONITOR LABS
[2019-02-03 12:30] LABS: EPI CELLS 0.1 /HPF (0-5/HPF); URINE APPEARANCE CLEAR; URINE BACTERIA 0.2 /hpf (NEGATIVE); URINE BILIRUBIN NEGATIVE (NEGATIVE); URINE CASTS 1 /lpf (0-8); URINE COLOR YELLOW; URINE GLUCOSE (UA) TRACE (NEGATIVE); URINE KETONE NEGATIVE (NEGATIVE); URINE LEUK ESTERASE NEGATIVE (NEGATIVE); URINE NITRITE NEGATIVE (NEGATIVE); URINE PROTEIN TRACE (NEGATIVE); URINE RBC 2 /hpf (0-4); URINE UROBILINOGEN 0.2 mg/dL (0.2-1.0); URINE WBC 0 /hpf (0-5)
[2019-02-03] MEDS: LIDOCAINE 5% TOPICAL PATCH TP SCH (13:08)
[2019-02-03] MEDS ORDERED: FUROSEMIDE 100 MG/10 ML INJECTABLE VIAL IVPB ONE (18:10)
[2019-02-03] MEDS ORDERED: HALOPERIDOL LACTATE 5 MG/ML IM ONE (20:25)
--- NOTE | 2019-02-03 20:31 | HOSP ---
Physical Examination Vital Signs: Vital Signs Temperature 98.2 F 02/03/19 18:00 Pulse Rate 104 H 02/03/19 18:00 Respiratory Rate 35 H 02/03/19 18:00 Blood Pressure 146/71 02/03/19 18:00 O2 Sat by Pulse Oximetry (%) 94 L 02/03/19 16:00 Labs: CBC, BMP 02/02/19 07:56 02/02/19 07:56 Hospitalist Encounter Assessment: Called by nursing for patient with JANETH, CHF?- in resp distress, b/l pulm edema seen on CXR, saturating mid 80s on nasal cannula. S/p furosemide 80mg IV. FOund to be delirious, urinary retention, 300-400cc residual on bladder scan as per nursing. Ordered abg, cxr, Bipap, Haldol IM for agitation, temporary wrist restraints- pt pulling off NR mask, reddy catheter. Monitor I/o, daily weights. Will reassess.
[2019-02-03 21:55] LABS: EPI CELLS 0.7 /HPF (0-5/HPF); URINE APPEARANCE CLOUDY; URINE BILIRUBIN NEGATIVE (NEGATIVE); URINE CASTS 4 /lpf (0-8); URINE COLOR YELLOW; URINE GLUCOSE (UA) TRACE (NEGATIVE); URINE KETONE NEGATIVE (NEGATIVE); URINE LEUK ESTERASE NEGATIVE (NEGATIVE); URINE NITRITE NEGATIVE (NEGATIVE); URINE PROTEIN 1+ (NEGATIVE); URINE RBC 2 /hpf (0-4); URINE UROBILINOGEN 0.2 mg/dL (0.2-1.0); URINE WBC 0 /hpf (0-5)
[2019-02-03 22:40] LABS: ALLENS TEST POSITIVE; ARTERIAL BLD GAS O2 SATURATION 94.1 % (95-98); ARTERIAL BLOOD GAS BASE EXCESS -0.3 meq/l (-2-2); ARTERIAL BLOOD GAS PCO2 39.7 mmHg (35-45)
[2019-02-03] MEDS: LIDOCAINE PATCH REMOVAL MC SCH (23:14)
[2019-02-04] MEDS ORDERED: VANCOMYCIN 1,000 MG in DEXTROSE 5%-WATER - 250 ML IVPB ONE (00:49)
[2019-02-04] MEDS: ATORVASTATIN CA 10 MG TABLET (FP) PO SCH ×3 (01:46→22:42)
[2019-02-04] MEDS: APIXABAN 5 MG TABLET PO SCH ×3 (01:48→22:42)
[2019-02-04] MEDS: SODIUM BICARBONATE 650 MG TABLET PO SCH ×3 (01:48→22:44)
[2019-02-04] MEDS: AMIODARONE HCL 200 MG TABLET (FP) PO SCH ×3 (01:49→22:42)
[2019-02-04] MEDS: ACETAMINOPHEN 325 MG TABLET (FP) PO PRN ×2 (01:50→15:37)
[2019-02-04] MEDS ORDERED: CEFEPIME 2 GM in DEXTROSE 5%-WATER - 100 ML IVPB ONE (02:30)
[2019-02-04 05:58] LABS: HEMATOCRIT 25.5 % (35.4-49); HEMOGLOBIN 8.2 GM/dL (11.7-16.9); MCH 31.1 pg (25.7-33.7); MCHC 32.2 g/dl (32.0-35.9); MEAN CELL VOLUME 96.4 fl (80-96); MEAN PLT VOLUME 10.7 fl (7.5-11.1); PLATELET COUNT 228 K/MM3 (134-434); RBC 2.65 M/mm3 (4.00-5.60); RDW 30.5 % (11.9-15.9); WHITE BLOOD COUNT 13.5 K/mm3 (4.0-10.0)
[2019-02-04] MEDS: INSULIN SLIDING SCALE (NOVOLOG) 1 VIAL SQ SCH ×4 (06:04→22:44)
[2019-02-04] MEDS: INSULIN (LEVEMIR) 100 UNITS/ML UNITS SQ SCH (06:04)
[2019-02-04 06:29] LABS: ALBUMIN 3.5 g/dl (3.4-5.0); ALK PHOS 50 U/L (45-117); ANION GAP 8 MMOL/L (8-16); BILIRUBIN,TOTAL 1.7 mg/dL (0.2-1); BLOOD UREA NITROGEN 44 mg/dL (7-18); CALCIUM 8.4 mg/dL (8.5-10.1); CHLORIDE 96 mmol/L (98-107); CO2 28 mmol/L (21-32); CREATININE 2.3 mg/dL (0.55-1.3); GLUCOSE,RANDOM 274 mg/dL (74-106); SGOT/AST 615 U/L (15-37); SGPT/ALT 442 U/L (13-61); SODIUM 132 mmol/L (136-145); TOT PROT 7.9 g/dl (6.4-8.2)
[2019-02-04] MEDS: FOLIC ACID 1 MG TABLET (FP) PO SCH (10:26)
[2019-02-04] MEDS: LIDOCAINE 5% TOPICAL PATCH TP SCH (10:27)
[2019-02-04] MEDS: RANOLAZINE E.R. 1,000 MG TABLET (FP) PO SCH ×2 (10:27→22:44)
[2019-02-04] MEDS: OMEGA-3 ACID ETHYL ESTERS (FATTY-ACIDS) 1 GM CAPSULE (FP) PO SCH ×2 (10:47→22:42)
[2019-02-04] MEDS: POLYETHYLENE GLYCOL 3350 119 GM BTL PO SCH (10:47)
[2019-02-04] MEDS: IPRATROPIUM BR 0.02% 0.5 MG/2.5 ML VIAL.NEB. NEB PRN (11:30)
--- NOTE | 2019-02-04 12:05 | PN ---
Progress Note, Physician - Current Medication List Current Medications: Active Medications Acetaminophen (Tylenol -) 650 mg PO Q4H PRN PRN Reason: PAIN OR FEVER Last Admin: 02/04/19 01:50 Dose: 650 mg Amiodarone HCl (Cordarone -) 200 mg PO BID [facility] Last Admin: 02/04/19 10:26 Dose: 200 mg Apixaban (Eliquis -) 5 mg PO BID [facility] Last Admin: 02/04/19 10:27 Dose: 5 mg Atorvastatin Calcium (Lipitor -) 10 mg PO HS [facility] Last Admin: 02/04/19 01:49 Dose: 10 mg Folic Acid (Folic Acid -) 1 mg PO DAILY [facility] Last Admin: 02/04/19 10:26 Dose: 1 mg Insulin Aspart (Novolog Vial Sliding Scale -) 1 vial SQ ACHS [facility]; Protocol Last Admin: 02/04/19 06:04 Dose: 4 unit Insulin Detemir (Levemir Vial) 20 units SQ AM [facility] Last Admin: 02/04/19 06:04 Dose: 20 unit Ipratropium [place] (Atrovent 0.02% Nebulizer -) 1 amp NEB Q6H PRN PRN Reason: Dyspnea Stop: 02/10/19 18:09 Last Admin: 02/04/19 11:30 Dose: 1 amp Lidocaine (Lidoderm Patch -) 1 patch TP DAILY [facility] Last Admin: 02/04/19 10:27 Dose: 1 patch Metoprolol Succinate (Toprol Xl -) 100 mg PO BID [facility] Last Admin: 02/04/19 10:26 Dose: 100 mg Miscellaneous (Lidoderm Patch Removal) 1 each MC DAILY@2200 [facility] Last Admin: 02/03/19 23:14 Dose: Not Given Non-Formulary Medication (Linaclotide [Linzess]) 145 mcg PO DAILY [facility] [id number] Ethyl Esters (Lovaza -) 2 gm PO BID [facility] Last Admin: 02/04/19 10:47 Dose: Not Given Polyethylene Glycol (Miralax (For Daily Use) -) 17 gm PO DAILY [facility] Last Admin: 02/04/19 10:47 Dose: Not Given Ranolazine (Ranexa -) 1,000 mg PO BID [facility] Last Admin: 02/04/19 10:27 Dose: 1,000 mg Sodium Bicarbonate (Sodium Bicarbonate -) 650 mg PO BID [facility] Last Admin: 02/04/19 10:26 Dose: 650 mg Umeclidinium/Vilanterol (Anoro Ellipta 62.5-25 Mcg Inh) 1 puff IH DAILY [facility] Last Admin: 02/03/19 09:26 Dose: 1 puff - Objective Vital Signs: Vital Signs Temperature 98.2 F 02/04/19 10:00 Pulse Rate 111 H 02/04/19 10:00 Respiratory Rate 24 H 02/04/19 10:00 Blood Pressure 115/60 02/04/19 10:00 O2 Sat by Pulse Oximetry (%) 97 02/04/19 00:00 Eyes: Yes: WNL, Conjunctiva Clear, EOM Intact HENT: Yes: WNL, Atraumatic, Normocephalic Neck: Yes: WNL, Supple, Trachea Midline Cardiovascular: Yes: Pulse Irregular, S1, S2 Respiratory: Yes: WNL, Regular, CTA Bilaterally, Diminished Gastrointestinal: Yes: WNL, Normal Bowel Sounds Genitourinary: Yes: WNL Musculoskeletal: Yes: WNL Extremities: Yes: WNL Edema: No Integumentary: Yes: WNL Neurological: Yes: WNL, Alert, Oriented ...Motor Strength: WNL Psychiatric: Yes: WNL Labs: CBC, BMP 02/04/19 05:30 02/04/19 05:30 INR, PTT INR 1.58 (0.83-1.09) H 02/02/19 07:56 Assessment/Plan 1. Fall with chest wall trauma, no reported syncope 2. CAD post CABG/PCI/GERALD demand ischemic injury angina pectoris 3. Acute on chronic class I-II NYHA classification LV failure related to diastolic/systolic LV dysfunction, clinical decompensation 4. Persistent atrial flutter with rapid ventricular response [id number] score of 5, ATP pacing noted inappropriate 5. Post prophylactic ICD implant 6. HTN 7. DM 8. Hypercholesterolemia 9. COPD 10. CKD 11. Anemia PLAN: 1. As outlined yesterday recommend D/C ASA and continue Eliquis with caution, A/ C should be continued indefinitely unless it is absolutely contraindicated considering the above noted [id number] score of 5 2. Change Toprol XL to twice daily administration and add Amiodarone/short term to assist with rate control and possible conversion 3. Continue Ranexa 4. Ideally should be on ACEI or ARBS unless it is absolutely contraindicated, to be discussed with renal service 5. Continue Lipitor 6. IV Lasix this AM in view of the above noted presentation, diuretic use with close monitoring of renal function and electrolytes 7. refused ERIKA guided synchronized cardioversion of the above noted arrhythmia/ atrial flutter
[2019-02-04] MEDS: UMECLIDINIUM/VILANTEROL (ANORO) 62.5/25 MCG INHALER IH SCH (12:12)
[2019-02-04] MEDS ORDERED: FUROSEMIDE 40 MG/4 ML INJECTABLE VIAL IVPUSH ONE (12:15)
--- NOTE | 2019-02-04 12:15 | PN ---
Progress Note, Physician History of Present Illness: Pt seen and examined at bedside. He is awake and is on bipap. He denies chest pain. He has a reddy and is making urine. - Current Medication List Current Medications: Active Medications Acetaminophen (Tylenol -) 650 mg PO Q4H PRN PRN Reason: PAIN OR FEVER Last Admin: 02/04/19 01:50 Dose: 650 mg Amiodarone HCl (Cordarone -) 200 mg PO BID [facility] Last Admin: 02/04/19 10:26 Dose: 200 mg Apixaban (Eliquis -) 5 mg PO BID [facility] Last Admin: 02/04/19 10:27 Dose: 5 mg Atorvastatin Calcium (Lipitor -) 10 mg PO HS [facility] Last Admin: 02/04/19 01:49 Dose: 10 mg Folic Acid (Folic Acid -) 1 mg PO DAILY [facility] Last Admin: 02/04/19 10:26 Dose: 1 mg Insulin Aspart (Novolog Vial Sliding Scale -) 1 vial SQ ACHS [facility]; Protocol Last Admin: 02/04/19 06:04 Dose: 4 unit Insulin Detemir (Levemir Vial) 20 units SQ AM [facility] Last Admin: 02/04/19 06:04 Dose: 20 unit Ipratropium [place] (Atrovent 0.02% Nebulizer -) 1 amp NEB Q6H PRN PRN Reason: Dyspnea Stop: 02/10/19 18:09 Last Admin: 02/04/19 11:30 Dose: 1 amp Lidocaine (Lidoderm Patch -) 1 patch TP DAILY [facility] Last Admin: 02/04/19 10:27 Dose: 1 patch Metoprolol Succinate (Toprol Xl -) 100 mg PO BID [facility] Last Admin: 02/04/19 10:26 Dose: 100 mg Miscellaneous (Lidoderm Patch Removal) 1 each MC DAILY@2200 [facility] Last Admin: 02/03/19 23:14 Dose: Not Given Non-Formulary Medication (Linaclotide [Linzess]) 145 mcg PO DAILY [facility] [id number] Ethyl Esters (Lovaza -) 2 gm PO BID [facility] Last Admin: 02/04/19 10:47 Dose: Not Given Polyethylene Glycol (Miralax (For Daily Use) -) 17 gm PO DAILY [facility] Last Admin: 02/04/19 10:47 Dose: Not Given Ranolazine (Ranexa -) 1,000 mg PO BID [facility] Last Admin: 02/04/19 10:27 Dose: 1,000 mg Sodium Bicarbonate (Sodium Bicarbonate -) 650 mg PO BID [facility] Last Admin: 02/04/19 10:26 Dose: 650 mg Umeclidinium/Vilanterol (Anoro Ellipta 62.5-25 Mcg Inh) 1 puff IH DAILY [facility] Last Admin: 02/03/19 09:26 Dose: 1 puff - Objective Vital Signs: Vital Signs Temperature 98.2 F 02/04/19 10:00 Pulse Rate 111 H 02/04/19 10:00 Respiratory Rate 24 H 02/04/19 10:00 Blood Pressure 115/60 02/04/19 10:00 O2 Sat by Pulse Oximetry (%) 97 02/04/19 00:00 Constitutional: Yes: Calm Eyes: Yes: Conjunctiva Clear HENT: Yes: Atraumatic Cardiovascular: Yes: S1, S2 Respiratory: Yes: On BiPap Gastrointestinal: Yes: Soft, Abdomen, Obese Genitourinary: Yes: Reddy Present Edema: Yes Edema: LLE: 1+, RLE: 1+ Neurological: Yes: Oriented Psychiatric: Yes: Oriented Labs: CBC, BMP 02/04/19 05:30 02/04/19 05:30 INR, PTT INR 1.58 (0.83-1.09) H 02/02/19 07:56 - ....Imaging Chest X-ray: Report Reviewed Assessment/Plan Current Medications Generic Name Dose Route Start Last Admin Trade Name Freq PRN Reason Stop Dose Admin Acetaminophen 650 mg 02/04/19 00:46 02/04/19 01:50 Tylenol - PO 650 mg Q4H PRN Administration PAIN OR FEVER Amiodarone HCl 200 mg 02/03/19 10:00 02/04/19 10:26 Cordarone - PO 200 mg BID [facility] Administration Apixaban 5 mg 02/02/19 10:00 02/04/19 10:27 Eliquis - PO 5 mg BID [facility] Administration Atorvastatin Calcium 10 mg 02/02/19 22:00 02/04/19 01:49 Lipitor - PO 10 mg HS [facility] Administration Folic Acid 1 mg 02/02/19 10:00 02/04/19 10:26 Folic Acid - PO 1 mg DAILY [facility] Administration Insulin Aspart 1 vial 02/02/19 07:00 02/04/19 06:04 Novolog Vial Sliding Scale - SQ 4 unit ACHS [facility] Administration Protocol Insulin Detemir 20 units 02/02/19 08:15 02/04/19 06:04 Levemir Vial SQ 20 unit AM [facility] Administration Ipratropium [place] 1 amp 02/03/19 18:09 02/04/19 11:30 Atrovent 0.02% Nebulizer - NEB 02/10/19 18:09 1 amp Q6H PRN Administration Dyspnea Lidocaine 1 patch 02/03/19 11:45 02/04/19 10:27 Lidoderm Patch - TP 1 patch DAILY [facility] Administration Metoprolol Succinate 100 mg 02/03/19 10:00 02/04/19 10:26 Toprol Xl - PO 100 mg BID [facility] Administration Miscellaneous 1 each 02/03/19 22:00 02/03/19 23:14 Lidoderm Patch Removal MC Not Given DAILY@2200 [facility] Non-Formulary Medication 145 mcg 02/02/19 10:00 Linaclotide [Linzess] PO DAILY [facility] [id number] Ethyl Esters 2 gm 02/02/19 22:00 02/04/19 10:47 Lovaza - PO Not Given BID [facility] Polyethylene Glycol 17 gm 02/02/19 10:00 02/04/19 10:47 Miralax (For Daily Use) - PO Not Given DAILY [facility] Ranolazine 1,000 mg 02/02/19 10:00 02/04/19 10:27 Ranexa - PO 1,000 mg BID [facility] Administration Sodium Bicarbonate 650 mg 02/02/19 10:00 02/04/19 10:26 Sodium Bicarbonate - PO 650 mg BID [facility] Administration Umeclidinium/Vilanterol 1 puff 02/02/19 10:00 02/03/19 09:26 Anoro Ellipta 62.5-25 Mcg Inh IH 1 puff DAILY [facility] Administration Impression 1. CKD 2. HTN 3. DM 4. resp failure requiring bipap 5. anemia 6. CHF Plan - can d/c o bicarb - will give another dose of lasix - cont bipap - am cxr - monitor renal function - hold arb for now until we stabilize volume status
--- NOTE | 2019-02-04 12:30 | CON.PULM ---
Consult Consult Specialty:: PULMONARY Referred by:: Dr Salter Reason for Consultation:: shortness of breath - History of Present Illness Chief Complaint: fall History of Present Illness: 73yo male with h/o HTN, DM, hypercholesterolemia, COPD, chronic hypoxic respiratory failure on home O2, CAD s/p CABG, JARET, CKD, recently admitted for CHF exacerbation who was admitted s/p fall, found on the floor with bruising on his right flank. Denies chest pain and is breathing has improved. No fevers, chills or sweats. Confused, currently on BiPAP. - Past Medical History Cardio/Vascular: Yes: CAD (S/P CABG), CHF (SHF- EF unknown) Pulmonary: Yes: COPD, O2 Dependent Renal/: Yes: Renal Inusuff - Past Surgical History Past Surgical History: Yes: Bypass (2004), Stent (2009) - Alcohol/Substance Use Hx Alcohol Use: No - Smoking History Smoking history: Never smoked Have you smoked in the past 12 months: No If you are a former smoker, when did you quit?: 15 YRS - Social History ADL: Independent History of Recent Travel: No Home Medications - Allergies Allergies/Adverse Reactions: Allergies Allergy/AdvReac Type Severity Reaction Status Date / Time No Known Allergies Allergy Verified 01/25/19 12:44 - Home Medications Home Medications: Ambulatory Orders Aspirin [Aspirin EC] 81 mg PO DAILY 09/12/17 Insulin Aspart [Novolog Flexpen] 5 unit SQ TID 09/12/17 Albuterol Sulfate Inhaler - [Ventolin HFA Inhaler -] 1 - 2 inh PO Q4H 09/13/17 Docusate Sodium [Colace -] 100 mg PO DAILY 09/13/17 Folic Acid 1 mg PO DAILY 09/13/17 Linaclotide [Linzess] 145 mcg PO DAILY 09/13/17 Umeclidinium Brm/Vilanterol Tr [Anoro Ellipta 62.5-25 Mcg INH] 1 each IH DAILY 09/13/17 Atorvastatin Calcium [Lipitor] 10 mg PO DAILY 01/25/19 Icosapent Ethyl [Vascepa] 2 gm PO BID 01/25/19 Insulin Glargine,Hum.rec.anlog [Basaglar Kwikpen U-100] 20 unit SQ DAILY Ranolazine [Ranexa] 1,000 mg PO BID 01/25/19 Eltrombopag Olamine [Promacta] 100 mg PO 01/28/19 Acetaminophen [Tylenol .Regular Strength -] 650 mg PO Q4H PRN tablet 02/01/19 Apixaban [Eliquis -] 5 mg PO BID #60 tablet 02/01/19 Atorvastatin Ca [Lipitor] 10 mg PO HS tablet 02/01/19 Folic Acid - 1 mg PO DAILY tablet 02/01/19 Furosemide 80 mg PO DAILY #30 tablet 02/01/19 Insulin Sliding Scale [Novolog Vial Sliding Scale -] 1 vial SQ ACHS units 02/01 Meclizine HCl [Antivert -] 25 mg PO DAILY tablet 02/01/19 Metoprolol Succinate [Toprol XL -] 150 mg PO DAILY #30 tab.sr.24h 02/01/19 Polyethylene Glycol 3350 [Miralax 119 gm Btl -] 17 gm PO DAILY bottle 02/01/19 Ranolazine [Ranexa -] 1,000 mg PO BID tab 02/01/19 Sodium Bicarbonate - 650 mg PO BID tablet 02/01/19 Umeclidinium Brm/Vilanterol Tr [Anoro Ellipta 62.5-25 Mcg INH] 1 puff IH DAILY inhaler 02/01/19 Review of Systems - Review of Systems Constitutional: denies: Chills, Fever Eyes: denies: Recent Change in Vision HENT: denies: Nasal Congestion, Throat Pain Neck: denies: Stiffness, Tenderness Cardiovascular: reports: Shortness of Breath. denies: Chest Pain, Palpitations Respiratory: denies: Cough, Hemoptysis, Wheezing Gastrointestinal: denies: Abdominal Pain, Nausea, Vomiting Genitourinary: denies: Dysuria Neurological: denies: Dizziness, Headache Endocrine: denies: Unexplained Weight Loss Physical Exam Vital Sings: Vital Signs Temperature 98.2 F 02/04/19 10:00 Pulse Rate 111 H 02/04/19 10:00 Respiratory Rate 24 H 02/04/19 10:00 Blood Pressure 115/60 02/04/19 10:00 O2 Sat by Pulse Oximetry (%) 97 02/04/19 00:00 Constitutional: Yes: Mild Distress (on BiPAP) Eyes: Yes: Conjunctiva Clear, EOM Intact HENT: Yes: Atraumatic, Normocephalic Neck: Yes: Supple, Trachea Midline Cardiovascular: Yes: Pulse Irregular Respiratory: Yes: Diminished (decreased breath sounds at the bases) Labs: CBC, BMP 02/04/19 05:30 02/04/19 05:30 ABG Results ABG pH 7.40 (7.35-7.45) 02/03/19 22:33 ABG pCO2 at Pt Temp 39.7 mmHg (35-45) 02/03/19 22:33 ABG pO2 at Pt Temp 78.0 mmHg (80-105) L 02/03/19 22:33 ABG HCO3 23.9 mmol/L (22-27) 02/03/19 22:33 ABG O2 Sat (Measured) 94.1 % (95-98) L 02/03/19 22:33 ABG O2 Content 12.2 % vol (15-22) L 02/03/19 22:33 ABG Base Excess -0.3 meq/l (-2-2) 02/03/19 22:33 Imaging - Results Chest X-ray: Report Reviewed, Image Reviewed (pulmonary vascular congestion) Problem List - Problems (1) Acute on chronic diastolic (congestive) heart failure Code(s): I50.33 - ACUTE ON CHRONIC DIASTOLIC (CONGESTIVE) HEART FAILURE Assessment/Plan s/p Fall Acute on Chronic Systolic/Diastolic Heart Failure Atrial Flutter with RVR COPD Chronic Hypoxic Respiratory Failure CAD s/p CABG HTN DM Hypercholesterolemia CKD - IV lasix - monitor urine output, creatinine - daily weights - monitor CXR with diuresis - rate control - continue anticoagulation - O2 to keep Spo2 >90% - BiPAP at night and PRN during the day Thank you for this consult Dashawn Espino MD
--- NOTE | 2019-02-04 14:05 | PN ---
Progress Note (short form) - Note Progress Note: ID consult dictated imp/reccd 73 yo man with CAD, COPD on home oxygen, sleep apnea admitted s/p fall on 02/02- he fractured right ribs 5/6 last night he became more confused and SOB he had a fever to 102 he had urinary retention, he was sob and hypoxic reddy was placed he was put on bipap vanco/cefepime were given after cultures were taken cxray shows increased congestion this am he is afebrile and less confused denies chest/abdominal pain was able to tell me he uses bipap at home reddy with clear urine fever cannot r/o pneumonia in the setting of recent rib fracture and recent hospital admission chf copd ckd continue cefepime adjusted for ckd check vanco level in am f/u cultures Problem List - Problems (1) Fever Code(s): R50.9 - FEVER, UNSPECIFIED (2) Pneumonia Code(s): J18.9 - PNEUMONIA, UNSPECIFIED ORGANISM (3) Rib fractures Code(s): S22.39XA - FRACTURE OF ONE RIB, UNSP SIDE, INIT FOR CLOS FX (4) Acute on chronic diastolic (congestive) heart failure Code(s): I50.33 - ACUTE ON CHRONIC DIASTOLIC (CONGESTIVE) HEART FAILURE (5) COPD (chronic obstructive pulmonary disease) Code(s): J44.9 - CHRONIC OBSTRUCTIVE PULMONARY DISEASE, UNSPECIFIED (6) CKD (chronic kidney disease) Code(s): N18.9 - CHRONIC KIDNEY DISEASE, UNSPECIFIED
--- NOTE | 2019-02-04 14:14 | PN ---
Progress Note, Physician Chief Complaint: patinet in bed on bipap on iv abx - Current Medication List Current Medications: Active Medications Acetaminophen (Tylenol -) 650 mg PO Q4H PRN PRN Reason: PAIN OR FEVER Last Admin: 02/04/19 01:50 Dose: 650 mg Amiodarone HCl (Cordarone -) 200 mg PO BID [facility] Last Admin: 02/04/19 10:26 Dose: 200 mg Apixaban (Eliquis -) 5 mg PO BID [facility] Last Admin: 02/04/19 10:27 Dose: 5 mg Atorvastatin Calcium (Lipitor -) 10 mg PO HS [facility] Last Admin: 02/04/19 01:49 Dose: 10 mg Folic Acid (Folic Acid -) 1 mg PO DAILY [facility] Last Admin: 02/04/19 10:26 Dose: 1 mg Cefepime HCl (Maxipime 1 Gm Premix Ivpb) 1 gm in 50 mls @ 100 mls/hr IVPB BID [facility]; Protocol Insulin Aspart (Novolog Vial Sliding Scale -) 1 vial SQ ACHS [facility]; Protocol Last Admin: 02/04/19 12:11 Dose: 6 unit Insulin Detemir (Levemir Vial) 20 units SQ AM [facility] Last Admin: 02/04/19 06:04 Dose: 20 unit Ipratropium [place] (Atrovent 0.02% Nebulizer -) 1 amp NEB Q6H PRN PRN Reason: Dyspnea Stop: 02/10/19 18:09 Last Admin: 02/04/19 11:30 Dose: 1 amp Lidocaine (Lidoderm Patch -) 1 patch TP DAILY [facility] Last Admin: 02/04/19 10:27 Dose: 1 patch Metoprolol Succinate (Toprol Xl -) 100 mg PO BID [facility] Last Admin: 02/04/19 10:26 Dose: 100 mg Miscellaneous (Lidoderm Patch Removal) 1 each MC DAILY@2200 [facility] Last Admin: 02/03/19 23:14 Dose: Not Given Non-Formulary Medication (Linaclotide [Linzess]) 145 mcg PO DAILY [facility] Wuxaa-3-[id number] Ethyl Esters (Lovaza -) 2 gm PO BID [facility] Last Admin: 02/04/19 10:47 Dose: Not Given Polyethylene Glycol (Miralax (For Daily Use) -) 17 gm PO DAILY [facility] Last Admin: 02/04/19 10:47 Dose: Not Given Ranolazine (Ranexa -) 1,000 mg PO BID [facility] Last Admin: 02/04/19 10:27 Dose: 1,000 mg Sodium Bicarbonate (Sodium Bicarbonate -) 650 mg PO BID [facility] Last Admin: 02/04/19 10:26 Dose: 650 mg Umeclidinium/Vilanterol (Anoro Ellipta 62.5-25 Mcg Inh) 1 puff IH DAILY [facility] Last Admin: 02/04/19 12:12 Dose: 1 puff - Objective Vital Signs: Vital Signs Temperature 98.2 F 02/04/19 10:00 Pulse Rate 111 H 02/04/19 10:00 Respiratory Rate 24 H 02/04/19 10:00 Blood Pressure 115/60 02/04/19 10:00 O2 Sat by Pulse Oximetry (%) 96 02/04/19 08:00 HENT: Yes: Other (bipap) Cardiovascular: Yes: Regular Rate and Rhythm, S1, S2 Respiratory: Yes: Diminished Gastrointestinal: Yes: Normal Bowel Sounds, Soft Edema: No Labs: CBC, BMP 02/04/19 05:30 02/04/19 05:30 INR, PTT INR 1.58 (0.83-1.09) H 02/02/19 07:56 Problem List - Problems (1) Fever Assessment/Plan: ID on board iv abx cultures pending Code(s): R50.9 - FEVER, UNSPECIFIED (2) Rib fractures Assessment/Plan: pain control Code(s): S22.39XA - FRACTURE OF ONE RIB, UNSP SIDE, INIT FOR CLOS FX (3) Acute on chronic diastolic (congestive) heart failure Assessment/Plan: iv lasix Code(s): I50.33 - ACUTE ON CHRONIC DIASTOLIC (CONGESTIVE) HEART FAILURE (4) Atrial flutter Assessment/Plan: amiodarone eliquis toprol Code(s): I48.92 - UNSPECIFIED ATRIAL FLUTTER (5) CKD (chronic kidney disease) Assessment/Plan: renal on board hold arb/acei Code(s): N18.9 - CHRONIC KIDNEY DISEASE, UNSPECIFIED (6) Diabetes Assessment/Plan: iinsulin bgm Code(s): E11.9 - TYPE 2 DIABETES MELLITUS WITHOUT COMPLICATIONS Qualifiers: Diabetes mellitus type: type 2 (7) Rib contusion Code(s): S20.219A - CONTUSION OF UNSPECIFIED FRONT WALL OF THORAX, INIT ENCNTR (8) COPD (chronic obstructive pulmonary disease) Assessment/Plan: bipap oxygen Code(s): J44.9 - CHRONIC OBSTRUCTIVE PULMONARY DISEASE, UNSPECIFIED Assessment/Plan psych eval
--- NOTE | 2019-02-04 15:14 | CONS ---
DATE OF CONSULTATION: DATE OF DICTATION: 02/04/2019 REQUESTED BY: Nikita Salter MD This is a 73-year-old man who was admitted late night or early after he fell. He had recently been in the hospital the through the 01 of February for heart failure and he was admitted after he had a fall at home. His son found him on the floor and he had an ecchymosis on his right flank. He was noted to have an elevated BUN and creatinine. He was noted to be in atrial flutter, which was apparently unchanged from before. He had x-rays of his ribs done and was noted to have fractures of ribs 5 and 6. He was admitted to the hospital. Overnight, the hospitalist was called on the , patient was noted to be febrile to 102, he was confused. There was a question of whether he was in respiratory distress. He had urinary retention. He was put on BiPAP. He had a chest x-ray done that showed increased congestion and he had blood cultures done and he was given vancomycin and cefepime after blood cultures were sent. I am asked to see him today for fever. Today, he is more alert. He is still wearing the BiPAP but he is able to tell me that he has no pain. He has no chest pain or abdominal pain and that he uses BiPAP at home and he has a machine for his sleep apnea. He is unable to give too much further history, as he is on the BiPAP. He denies headache as well. His past medical history is notable for hypertension, hyperlipidemia, anemia, COPD on home oxygen, sleep apnea on home BiPAP machine, CHF, diabetes. Surgical history includes bypass, he has a defibrillator, and he has had stents in the past. SOCIAL HISTORY: Apparently he lives at home. He quit smoking 15 years ago. He has no known drug allergies. Medications include Ellipta, sodium bicarbonate, Ranexa, MiraLax, metoprolol, Antivert, , insulin, Vascepa, furosemide, folic acid, Promacta, Colace, Lipitor, aspirin, Eliquis, Ventolin inhaler. REVIEW OF SYSTEMS: Currently he reports his breathing is improved. He is hungry, wants to eat lunch. PHYSICAL EXAMINATION: General: He is awake and alert. HEENT: He is wearing the BiPAP machine. I cannot examine his mouth. Neck: Supple. Lungs: Diminished breath sounds at the bases. Heart: Regular rate and rhythm. Tachycardic. Abdomen: Protuberant but soft, nontender. Extremities: Without edema. Genitourinary: He has a Hinds draining clear urine. His temperature is 98.2, pulse is 111, blood pressure is 115/60, respiratory rate 24. He is using BiPAP, with an FiO2 of 50% and saturating 96%. His labs are notable for a white count of 13.5, hemoglobin 8.2, platelets 228. His BUN is 44 and creatinine 2.3. Lactic acid was 3.7 last night, on repeat was 2.1. He has elevated LFTs with a total bilirubin of 1.7, AST of 615, ALT of 442, alkaline phosphatase of 50, all of this is new. Urinalysis is negative. In summary, this is a 73-year-old male with CAD, COPD on home oxygen, sleep apnea, admitted status post fall, now has fever. Cannot rule out pneumonia. He also has abnormal LFTs, which I suspect is due to heart failure, but would get an ultrasound of his liver as well, and gallbladder. He denies any abdominal pain. I think he has acute heart failure. COPD, on home oxygen, with CKD. I would continue cefepime adjusted for his CKD. Will check a vancomycin level and follow up cultures. Further recommendations to follow. FRANKLIN BLAS M.D. [id number]
--- NOTE | 2019-02-04 17:20 | CON.PSY ---
Psychiatry Consult Chief Complaint: Patient seen for Psych eval for anxiety. Patient admitted with Fracture rrids and had recent onset of CHF as well. So reports that patients mental status has decreases since his Heart Attack. Reports he caroline be depressed.Patient is on BY Pap and uanble to give any gistorey. Son reports he is mentally alert and able to communicate. Symptoms: reports: Depressed Mood, Anxiety - Previous Psychiatric Treatment Outpatient: None Inpatient: None - Previous Substance Abuse Treatment Outpatient: None Inpatient: None - Current Medications Current Medications: Active Medications Acetaminophen (Tylenol -) 650 mg PO Q4H PRN PRN Reason: PAIN OR FEVER Last Admin: 02/04/19 15:37 Dose: 650 mg Amiodarone HCl (Cordarone -) 200 mg PO BID [facility] Last Admin: 02/04/19 10:26 Dose: 200 mg Apixaban (Eliquis -) 5 mg PO BID [facility] Last Admin: 02/04/19 10:27 Dose: 5 mg Atorvastatin Calcium (Lipitor -) 10 mg PO HS [facility] Last Admin: 02/04/19 01:49 Dose: 10 mg Folic Acid (Folic Acid -) 1 mg PO DAILY [facility] Last Admin: 02/04/19 10:26 Dose: 1 mg Cefepime HCl 1 gm/ Dextrose 100 mls @ 200 mls/hr IVPB BID [facility]; Protocol Insulin Aspart (Novolog Vial Sliding Scale -) 1 vial SQ ACHS [facility]; Protocol Last Admin: 02/04/19 12:11 Dose: 6 unit Insulin Detemir (Levemir Vial) 20 units SQ AM [facility] Last Admin: 02/04/19 06:04 Dose: 20 unit Ipratropium [place] (Atrovent 0.02% Nebulizer -) 1 amp NEB Q6H PRN PRN Reason: Dyspnea Stop: 02/10/19 18:09 Last Admin: 02/04/19 11:30 Dose: 1 amp Lidocaine (Lidoderm Patch -) 1 patch TP DAILY [facility] Last Admin: 02/04/19 10:27 Dose: 1 patch Metoprolol Succinate (Toprol Xl -) 100 mg PO BID [facility] Last Admin: 02/04/19 10:26 Dose: 100 mg Miscellaneous (Lidoderm Patch Removal) 1 each MC DAILY@2200 [facility] Last Admin: 02/03/19 23:14 Dose: Not Given Non-Formulary Medication (Linaclotide [Linzess]) 145 mcg PO DAILY [facility] Kklgf-7-[id number] Ethyl Esters (Lovaza -) 2 gm PO BID [facility] Last Admin: 02/04/19 10:47 Dose: Not Given Polyethylene Glycol (Miralax (For Daily Use) -) 17 gm PO DAILY [facility] Last Admin: 02/04/19 10:47 Dose: Not Given Ranolazine (Ranexa -) 1,000 mg PO BID [facility] Last Admin: 02/04/19 10:27 Dose: 1,000 mg Sodium Bicarbonate (Sodium Bicarbonate -) 650 mg PO BID [facility] Last Admin: 02/04/19 10:26 Dose: 650 mg Umeclidinium/Vilanterol (Anoro Ellipta 62.5-25 Mcg Inh) 1 puff IH DAILY [facility] Last Admin: 02/04/19 12:12 Dose: 1 puff - Allergies Allergies: Allergies Allergy/AdvReac Type Severity Reaction Status Date / Time No Known Allergies Allergy Verified 01/25/19 12:44 - Current Living Status Usual Living Arrangement: With Child - Current Mental Status Evaluation Appearance: Disheveled Attitude: Guarded - Affect Affect: Constrictive Appropriateness: Appropriate to Content - Mood Mood: Depressed - Speech/Language Expressive: Coherent - Psychomotor Activity Psychomotor Activity: Slowed - Thought Process Thought Process: Intact - Thought Content Hallucinations: Absent Delusions: Absent - Self Perception Self Perception: No Impairment - Cognition Attention: Alert Memory, Short Term: 2/3 Memory, Remote with Promptin/3 - Concentration Serial Sevens Intact: No Simple Calculations Intact: No - Abstraction Proverb Interpretation: Intact Judgement: Minimally Impaired - Insight Insight: Intact - Impulse Control Impulse Control: Good Control - Suicidal Ideation Suicidal Ideation: No - Homicidal Ideation Homicidal Ideation: No Assessment/Plan 1) would suggest starting on Lexapro 5mg p[o od when medically stable.
[2019-02-04] MEDS ORDERED: CEFEPIME HCL 1 GM VIAL (RESTRICTED TO ID) ONE (22:21)
[2019-02-04] MEDS ORDERED: DEXTROSE 5%-WATER 100 ML IVPB ONE (22:22)
[2019-02-04] MEDS ORDERED: INSULIN (NOVOLOG) ASPART 100 UNITS/ML 10ML VIAL ONE (22:25)
[2019-02-04] MEDS: CEFEPIME 1 GM in DEXTROSE 5%-WATER 100 ML IVPB SCH (22:43)
[2019-02-04] MEDS: LIDOCAINE PATCH REMOVAL MC SCH (22:44)
[2019-02-05] MEDS: ACETAMINOPHEN 325 MG TABLET (FP) PO PRN ×2 (02:16→21:38)
[2019-02-05] MEDS: INSULIN SLIDING SCALE (NOVOLOG) 1 VIAL SQ SCH ×4 (06:25→22:26)
[2019-02-05] MEDS: INSULIN (LEVEMIR) 100 UNITS/ML UNITS SQ SCH (06:27)
[2019-02-05 08:29] LABS: ALBUMIN 3.2 g/dl (3.4-5.0); ALK PHOS 43 U/L (45-117); ANION GAP 7 MMOL/L (8-16); BILIRUBIN,TOTAL 1.6 mg/dL (0.2-1); BLOOD UREA NITROGEN 58 mg/dL (7-18); CALCIUM 8.7 mg/dL (8.5-10.1); CHLORIDE 97 mmol/L (98-107); CO2 29 mmol/L (21-32); CREATININE 2.3 mg/dL (0.55-1.3); GLUCOSE,RANDOM 156 mg/dL (74-106); POTASSIUM 4.6 mmol/L (3.5-5.1); SGOT/AST 300 U/L (15-37); SGPT/ALT 340 U/L (13-61); SODIUM 133 mmol/L (136-145); TOT PROT 7.4 g/dl (6.4-8.2)
--- NOTE | 2019-02-05 08:34 | PN ---
Progress Note, Physician - Current Medication List Current Medications: Active Medications Acetaminophen (Tylenol -) 650 mg PO Q4H PRN PRN Reason: PAIN OR FEVER Last Admin: 02/05/19 02:16 Dose: 650 mg Amiodarone HCl (Cordarone -) 200 mg PO BID [facility] Last Admin: 02/04/19 22:42 Dose: 200 mg Apixaban (Eliquis -) 5 mg PO BID [facility] Last Admin: 02/04/19 22:42 Dose: 5 mg Atorvastatin Calcium (Lipitor -) 10 mg PO HS [facility] Last Admin: 02/04/19 22:42 Dose: 10 mg Folic Acid (Folic Acid -) 1 mg PO DAILY [facility] Last Admin: 02/04/19 10:26 Dose: 1 mg Cefepime HCl 1 gm/ Dextrose 100 mls @ 200 mls/hr IVPB BID [facility]; Protocol Last Admin: 02/04/19 22:43 Dose: 200 mls/hr Insulin Aspart (Novolog Vial Sliding Scale -) 1 vial SQ ACHS [facility]; Protocol Last Admin: 02/05/19 06:25 Dose: Not Given Insulin Detemir (Levemir Vial) 20 units SQ AM [facility] Last Admin: 02/05/19 06:27 Dose: 20 unit Ipratropium [place] (Atrovent 0.02% Nebulizer -) 1 amp NEB Q6H PRN PRN Reason: Dyspnea Stop: 02/10/19 18:09 Last Admin: 02/04/19 11:30 Dose: 1 amp Lidocaine (Lidoderm Patch -) 1 patch TP DAILY [facility] Last Admin: 02/04/19 10:27 Dose: 1 patch Metoprolol Succinate (Toprol Xl -) 100 mg PO BID [facility] Last Admin: 02/04/19 22:44 Dose: 100 mg Miscellaneous (Lidoderm Patch Removal) 1 each MC DAILY@2200 [facility] Last Admin: 02/04/19 22:44 Dose: 1 each Non-Formulary Medication (Linaclotide [Linzess]) 145 mcg PO DAILY [facility] Udfbl-6-Dimt Ethyl Esters (Lovaza -) 2 gm PO BID [facility] Last Admin: 02/04/19 22:42 Dose: 2 gm Polyethylene Glycol (Miralax (For Daily Use) -) 17 gm PO DAILY [facility] Last Admin: 02/04/19 10:47 Dose: Not Given Ranolazine (Ranexa -) 1,000 mg PO BID [facility] Last Admin: 02/04/19 22:44 Dose: 1,000 mg Sodium Bicarbonate (Sodium Bicarbonate -) 650 mg PO BID [facility] Last Admin: 02/04/19 22:44 Dose: 650 mg Umeclidinium/Vilanterol (Anoro Ellipta 62.5-25 Mcg Inh) 1 puff IH DAILY [facility] Last Admin: 02/04/19 12:12 Dose: 1 puff - Objective Vital Signs: Vital Signs Temperature 97.3 F L 02/05/19 06:00 Pulse Rate 79 02/05/19 06:00 Respiratory Rate 20 02/05/19 06:00 Blood Pressure 93/56 L 02/05/19 06:00 O2 Sat by Pulse Oximetry (%) 100 02/04/19 20:56 Eyes: Yes: WNL, Conjunctiva Clear, EOM Intact HENT: Yes: WNL, Atraumatic, Normocephalic Neck: Yes: WNL, Supple, Trachea Midline Cardiovascular: Yes: Pulse Irregular Respiratory: Yes: Diminished Gastrointestinal: Yes: WNL, Normal Bowel Sounds Genitourinary: Yes: WNL Musculoskeletal: Yes: WNL Extremities: Yes: WNL Edema: No Integumentary: Yes: WNL Neurological: Yes: WNL, Alert, Oriented ...Motor Strength: WNL Psychiatric: Yes: WNL Labs: CBC, BMP 02/05/19 06:00 INR, PTT INR 1.58 (0.83-1.09) H 02/02/19 07:56 Assessment/Plan 1. Fall with chest wall trauma, no reported syncope 2. CAD post CABG/PCI/GERALD demand ischemic injury angina pectoris 3. Acute on chronic class I-II NYHA classification LV failure related to diastolic/systolic LV dysfunction, clinical decompensation 4. Persistent atrial flutter with rapid ventricular response [id number] score of 5, ATP pacing noted inappropriate 5. Post prophylactic ICD implant 6. HTN 7. DM 8. Hypercholesterolemia 9. COPD 10. CKD 11. Anemia PLAN: 1. As outlined yesterday recommend D/C ASA and continue Eliquis with caution, A/ C should be continued indefinitely unless it is absolutely contraindicated considering the above noted [id number] score of 5 2. Change Toprol XL to twice daily administration and add Amiodarone/short term to assist with rate control and possible conversion 3. Continue Ranexa 4. Ideally should be on ACEI or ARBS unless it is absolutely contraindicated, to be discussed with renal service 5. Continue Lipitor 6. IV Lasix this AM in view of the above noted presentation, diuretic use with close monitoring of renal function and electrolytes 7. refused ERIKA guided synchronized cardioversion of the above noted arrhythmia/ atrial flutter
[2019-02-05] MEDS ORDERED: PT OWN MED DRAWER 7, Y5N ONE (08:44)
[2019-02-05] MEDS ORDERED: DEXTROSE 5%-WATER 100 ML IVPB ONE ×2 (08:45→21:36)
[2019-02-05] MEDS ORDERED: CEFEPIME HCL 1 GM VIAL (RESTRICTED TO ID) ONE ×2 (08:45→21:35)
[2019-02-05 08:51] LABS: BASO % 0.2 % (0-2.0); EOS % 0.2 % (0-4.5); HEMATOCRIT 23.1 % (35.4-49); HEMOGLOBIN 7.5 GM/dL (11.7-16.9); LYMPH % 7.6 % (8-40); MCH 31.3 pg (25.7-33.7); MCHC 32.6 g/dl (32.0-35.9); MEAN CELL VOLUME 95.8 fl (80-96); MEAN PLT VOLUME 10.4 fl (7.5-11.1); MONO % 24.7 % (3.8-10.2); NEUT % 67.3 % (42.8-82.8); PLATELET COUNT 176 K/MM3 (134-434); RBC 2.41 M/mm3 (4.00-5.60); RDW 30.8 % (11.9-15.9); WHITE BLOOD COUNT 10.4 K/mm3 (4.0-10.0)
--- NOTE | 2019-02-05 08:51 | PN ---
Progress Note, Physician - Current Medication List Current Medications: Active Medications Acetaminophen (Tylenol -) 650 mg PO Q4H PRN PRN Reason: PAIN OR FEVER Last Admin: 02/05/19 02:16 Dose: 650 mg Amiodarone HCl (Cordarone -) 200 mg PO BID [facility] Last Admin: 02/04/19 22:42 Dose: 200 mg Apixaban (Eliquis -) 5 mg PO BID [facility] Last Admin: 02/04/19 22:42 Dose: 5 mg Atorvastatin Calcium (Lipitor -) 10 mg PO HS [facility] Last Admin: 02/04/19 22:42 Dose: 10 mg Folic Acid (Folic Acid -) 1 mg PO DAILY [facility] Last Admin: 02/04/19 10:26 Dose: 1 mg Cefepime HCl 1 gm/ Dextrose 100 mls @ 200 mls/hr IVPB BID [facility]; Protocol Last Admin: 02/04/19 22:43 Dose: 200 mls/hr Insulin Aspart (Novolog Vial Sliding Scale -) 1 vial SQ ACHS [facility]; Protocol Last Admin: 02/05/19 06:25 Dose: Not Given Insulin Detemir (Levemir Vial) 20 units SQ AM [facility] Last Admin: 02/05/19 06:27 Dose: 20 unit Ipratropium [place] (Atrovent 0.02% Nebulizer -) 1 amp NEB Q6H PRN PRN Reason: Dyspnea Stop: 02/10/19 18:09 Last Admin: 02/04/19 11:30 Dose: 1 amp Lidocaine (Lidoderm Patch -) 1 patch TP DAILY [facility] Last Admin: 02/04/19 10:27 Dose: 1 patch Metoprolol Succinate (Toprol Xl -) 100 mg PO BID [facility] Last Admin: 02/04/19 22:44 Dose: 100 mg Miscellaneous (Lidoderm Patch Removal) 1 each MC DAILY@2200 [facility] Last Admin: 02/04/19 22:44 Dose: 1 each Non-Formulary Medication (Linaclotide [Linzess]) 145 mcg PO DAILY [facility] [id number] Ethyl Esters (Lovaza -) 2 gm PO BID [facility] Last Admin: 02/04/19 22:42 Dose: 2 gm Polyethylene Glycol (Miralax (For Daily Use) -) 17 gm PO DAILY [facility] Last Admin: 02/04/19 10:47 Dose: Not Given Ranolazine (Ranexa -) 1,000 mg PO BID [facility] Last Admin: 02/04/19 22:44 Dose: 1,000 mg Sodium Bicarbonate (Sodium Bicarbonate -) 650 mg PO BID [facility] Last Admin: 02/04/19 22:44 Dose: 650 mg Umeclidinium/Vilanterol (Anoro Ellipta 62.5-25 Mcg Inh) 1 puff IH DAILY [facility] Last Admin: 02/04/19 12:12 Dose: 1 puff - Objective Vital Signs: Vital Signs Temperature 97.3 F L 02/05/19 06:00 Pulse Rate 79 02/05/19 06:00 Respiratory Rate 20 02/05/19 06:00 Blood Pressure 93/56 L 02/05/19 06:00 O2 Sat by Pulse Oximetry (%) 100 02/04/19 20:56 Cardiovascular: Yes: S1, S2 Respiratory: Yes: On BiPap Gastrointestinal: Yes: Normal Bowel Sounds, Soft Neurological: Yes: Weakness Labs: CBC, BMP 02/05/19 06:00 INR, PTT INR 1.58 (0.83-1.09) H 02/02/19 07:56 Assessment/Plan - Problems (1) Fever Assessment/Plan: ID on board iv abx cultures pending Code(s): R50.9 - FEVER, UNSPECIFIED (2) Rib fractures Assessment/Plan: pain control Code(s): S22.39XA - FRACTURE OF ONE RIB, UNSP SIDE, INIT FOR CLOS FX (3) Acute on chronic diastolic (congestive) heart failure Assessment/Plan: iv lasix Code(s): I50.33 - ACUTE ON CHRONIC DIASTOLIC (CONGESTIVE) HEART FAILURE (4) Atrial flutter Assessment/Plan: amiodarone eliquis toprol Code(s): I48.92 - UNSPECIFIED ATRIAL FLUTTER (5) CKD (chronic kidney disease) Assessment/Plan: renal on board hold arb/acei Code(s): N18.9 - CHRONIC KIDNEY DISEASE, UNSPECIFIED (6) Diabetes Assessment/Plan: iinsulin bgm Code(s): E11.9 - TYPE 2 DIABETES MELLITUS WITHOUT COMPLICATIONS Qualifiers: Diabetes mellitus type: type 2 (7) Rib contusion Code(s): S20.219A - CONTUSION OF UNSPECIFIED FRONT WALL OF THORAX, INIT ENCNTR (8) COPD (chronic obstructive pulmonary disease) Assessment/Plan: bipap oxygen Code(s): J44.9 - CHRONIC OBSTRUCTIVE PULMONARY DISEASE, UNSPECIFIED
[2019-02-05] MEDS: IPRATROPIUM BR 0.02% 0.5 MG/2.5 ML VIAL.NEB. NEB PRN ×3 (09:00→22:33)
[2019-02-05] MEDS: RANOLAZINE E.R. 1,000 MG TABLET (FP) PO SCH ×2 (09:23→21:39)
[2019-02-05] MEDS: SODIUM BICARBONATE 650 MG TABLET PO SCH (09:23)
[2019-02-05] MEDS: FOLIC ACID 1 MG TABLET (FP) PO SCH (09:24)
[2019-02-05] MEDS: AMIODARONE HCL 200 MG TABLET (FP) PO SCH ×2 (09:24→21:38)
[2019-02-05] MEDS: OMEGA-3 ACID ETHYL ESTERS (FATTY-ACIDS) 1 GM CAPSULE (FP) PO SCH ×2 (09:24→21:38)
[2019-02-05] MEDS: APIXABAN 5 MG TABLET PO SCH ×2 (09:24→21:38)
[2019-02-05] MEDS: POLYETHYLENE GLYCOL 3350 119 GM BTL PO SCH (09:25)
[2019-02-05] MEDS: LIDOCAINE 5% TOPICAL PATCH TP SCH (09:25)
[2019-02-05] MEDS: CEFEPIME 1 GM in DEXTROSE 5%-WATER 100 ML IVPB SCH ×2 (09:25→21:38)
[2019-02-05] MEDS: UMECLIDINIUM/VILANTEROL (ANORO) 62.5/25 MCG INHALER IH SCH (09:26)
[2019-02-05 10:53] LABS: ANISOCYTOSIS 2+; MACROCYTOSIS 1+; PLATELET ESTIMATE NORMAL
--- NOTE | 2019-02-05 13:32 | PN ---
Progress Note, Physician History of Present Illness: pulmonary alert,oob-chair,less dyspneic,feels weak - Current Medication List Current Medications: Active Medications Acetaminophen (Tylenol -) 650 mg PO Q4H PRN PRN Reason: PAIN OR FEVER Last Admin: 02/05/19 02:16 Dose: 650 mg Amiodarone HCl (Cordarone -) 200 mg PO BID [facility] Last Admin: 02/05/19 09:24 Dose: 200 mg Apixaban (Eliquis -) 5 mg PO BID [facility] Last Admin: 02/05/19 09:24 Dose: 5 mg Atorvastatin Calcium (Lipitor -) 10 mg PO HS [facility] Last Admin: 02/04/19 22:42 Dose: 10 mg Folic Acid (Folic Acid -) 1 mg PO DAILY [facility] Last Admin: 02/05/19 09:24 Dose: 1 mg Cefepime HCl 1 gm/ Dextrose 100 mls @ 200 mls/hr IVPB BID [facility]; Protocol Last Admin: 02/05/19 09:25 Dose: 200 mls/hr Insulin Aspart (Novolog Vial Sliding Scale -) 1 vial SQ ACHS [facility]; Protocol Last Admin: 02/05/19 10:58 Dose: Not Given Insulin Detemir (Levemir Vial) 20 units SQ AM [facility] Last Admin: 02/05/19 06:27 Dose: 20 unit Ipratropium [place] (Atrovent 0.02% Nebulizer -) 1 amp NEB Q6H PRN PRN Reason: Dyspnea Stop: 02/10/19 18:09 Last Admin: 02/04/19 11:30 Dose: 1 amp Lidocaine (Lidoderm Patch -) 1 patch TP DAILY [facility] Last Admin: 02/05/19 09:25 Dose: 1 patch Metoprolol Succinate (Toprol Xl -) 100 mg PO BID [facility] Last Admin: 02/05/19 09:24 Dose: 100 mg Miscellaneous (Lidoderm Patch Removal) 1 each MC DAILY@2200 [facility] Last Admin: 02/04/19 22:44 Dose: 1 each Non-Formulary Medication (Linaclotide [Linzess]) 145 mcg PO DAILY [facility] [id number] Ethyl Esters (Lovaza -) 2 gm PO BID [facility] Last Admin: 02/05/19 09:24 Dose: 2 gm Polyethylene Glycol (Miralax (For Daily Use) -) 17 gm PO DAILY [facility] Last Admin: 02/05/19 09:25 Dose: 17 gm Ranolazine (Ranexa -) 1,000 mg PO BID [facility] Last Admin: 02/05/19 09:23 Dose: 1,000 mg Sodium Bicarbonate (Sodium Bicarbonate -) 650 mg PO BID [facility] Last Admin: 02/05/19 09:23 Dose: 650 mg Umeclidinium/Vilanterol (Anoro Ellipta 62.5-25 Mcg Inh) 1 puff IH DAILY [facility] Last Admin: 02/05/19 09:26 Dose: 1 puff - Objective Vital Signs: Vital Signs Temperature 97.3 F L 02/05/19 06:00 Pulse Rate 79 02/05/19 06:00 Respiratory Rate 22 H 02/05/19 09:00 Blood Pressure 93/56 L 02/05/19 06:00 O2 Sat by Pulse Oximetry (%) 97 02/05/19 09:00 Constitutional: Yes: Well Nourished, Calm Eyes: Yes: WNL HENT: Yes: WNL Neck: Yes: WNL Cardiovascular: Yes: Regular Rate and Rhythm, S1, S2 Respiratory: Yes: Rales (bilateral crackles) Gastrointestinal: Yes: Normal Bowel Sounds, Soft Extremities: Yes: WNL Edema: Yes Labs: CBC, BMP Problem List - Problems (1) Acute on chronic diastolic (congestive) heart failure Code(s): I50.33 - ACUTE ON CHRONIC DIASTOLIC (CONGESTIVE) HEART FAILURE (2) Anemia Code(s): D64.9 - ANEMIA, UNSPECIFIED (3) CKD (chronic kidney disease) Code(s): N18.9 - CHRONIC KIDNEY DISEASE, UNSPECIFIED (4) COPD (chronic obstructive pulmonary disease) Code(s): J44.9 - CHRONIC OBSTRUCTIVE PULMONARY DISEASE, UNSPECIFIED (5) Diabetes Code(s): E11.9 - TYPE 2 DIABETES MELLITUS WITHOUT COMPLICATIONS Qualifiers: Diabetes mellitus type: type 2 (6) HTN (hypertension) Code(s): I10 - ESSENTIAL (PRIMARY) HYPERTENSION (7) History of heart artery stent Code(s): Z95.5 - PRESENCE OF CORONARY ANGIOPLASTY IMPLANT AND GRAFT (8) Leg edema Code(s): R60.0 - LOCALIZED EDEMA (9) Presence of cardiac pacemaker Code(s): Z95.0 - PRESENCE OF CARDIAC PACEMAKER (10) Sleep apnea Code(s): G47.30 - SLEEP APNEA, UNSPECIFIED Assessment/Plan Assessment/Plan s/p Fall Acute on Chronic Systolic/Diastolic Heart Failure Atrial Flutter with RVR COPD Chronic Hypoxic Respiratory Failure CAD s/p CABG HTN DM Hypercholesterolemia CKD - IV lasix - daily weights - monitor CXR - rate control - continue anticoagulation - O2 to keep Spo2 >90% - BiPAP at night and PRN during the day DR MANNING
[2019-02-05] MEDS ORDERED: FUROSEMIDE 40 MG/4 ML INJECTABLE VIAL IVPUSH SCH (14:35)
--- NOTE | 2019-02-05 15:03 | PN ---
Progress Note, Physician History of Present Illness: Pt seen and examined at bedside. He is more awake and alert today. He is off of bipap and appears more comfortable. - Current Medication List Current Medications: Active Medications Acetaminophen (Tylenol -) 650 mg PO Q4H PRN PRN Reason: PAIN OR FEVER Last Admin: 02/05/19 02:16 Dose: 650 mg Amiodarone HCl (Cordarone -) 200 mg PO BID [facility] Last Admin: 02/05/19 09:24 Dose: 200 mg Apixaban (Eliquis -) 5 mg PO BID [facility] Last Admin: 02/05/19 09:24 Dose: 5 mg Atorvastatin Calcium (Lipitor -) 10 mg PO HS [facility] Last Admin: 02/04/19 22:42 Dose: 10 mg Folic Acid (Folic Acid -) 1 mg PO DAILY [facility] Last Admin: 02/05/19 09:24 Dose: 1 mg Furosemide (Lasix Injection -) 40 mg IVPUSH ALARM TECHNICIAN [facility] Cefepime HCl 1 gm/ Dextrose 100 mls @ 200 mls/hr IVPB BID [facility]; Protocol Last Admin: 02/05/19 09:25 Dose: 200 mls/hr Insulin Aspart (Novolog Vial Sliding Scale -) 1 vial SQ ACHS [facility]; Protocol Last Admin: 02/05/19 10:58 Dose: Not Given Insulin Detemir (Levemir Vial) 20 units SQ AM [facility] Last Admin: 02/05/19 06:27 Dose: 20 unit Ipratropium [place] (Atrovent 0.02% Nebulizer -) 1 amp NEB Q6H PRN PRN Reason: Dyspnea Stop: 02/10/19 18:09 Last Admin: 02/05/19 09:00 Dose: 1 amp Lidocaine (Lidoderm Patch -) 1 patch TP DAILY [facility] Last Admin: 02/05/19 09:25 Dose: 1 patch Metoprolol Succinate (Toprol Xl -) 100 mg PO BID [facility] Last Admin: 02/05/19 09:24 Dose: 100 mg Miscellaneous (Lidoderm Patch Removal) 1 each MC DAILY@2200 [facility] Last Admin: 02/04/19 22:44 Dose: 1 each Non-Formulary Medication (Linaclotide [Linzess]) 145 mcg PO DAILY [facility] Byaxh-6-[place] Ethyl Esters (Lovaza -) 2 gm PO BID [facility] Last Admin: 02/05/19 09:24 Dose: 2 gm Polyethylene Glycol (Miralax (For Daily Use) -) 17 gm PO DAILY [facility] Last Admin: 02/05/19 09:25 Dose: 17 gm Ranolazine (Ranexa -) 1,000 mg PO BID [facility] Last Admin: 02/05/19 09:23 Dose: 1,000 mg Sodium Bicarbonate (Sodium Bicarbonate -) 650 mg PO BID [facility] Last Admin: 02/05/19 09:23 Dose: 650 mg Umeclidinium/Vilanterol (Anoro Ellipta 62.5-25 Mcg Inh) 1 puff IH DAILY [facility] Last Admin: 02/05/19 09:26 Dose: 1 puff - Objective Vital Signs: Vital Signs Temperature 97.3 F L 02/05/19 06:00 Pulse Rate 79 02/05/19 06:00 Respiratory Rate 22 H 02/05/19 09:00 Blood Pressure 93/56 L 02/05/19 06:00 O2 Sat by Pulse Oximetry (%) 97 02/05/19 09:00 Constitutional: Yes: Calm Eyes: Yes: Conjunctiva Clear HENT: Yes: Atraumatic Cardiovascular: Yes: S1, S2 Respiratory: Yes: On Nasal O2, Rhonchi Gastrointestinal: Yes: Soft Genitourinary: Yes: Hinds Present Musculoskeletal: Yes: WNL Edema: Yes Edema: LLE: Trace, RLE: Trace Neurological: Yes: Oriented Psychiatric: Yes: Oriented Labs: CBC, BMP 02/05/19 06:20 02/05/19 06:00 INR, PTT INR 1.58 (0.83-1.09) H 02/02/19 07:56 Assessment/Plan Current Medications Generic Name Dose Route Start Last Admin Trade Name Freq PRN Reason Stop Dose Admin Acetaminophen 650 mg 02/04/19 00:46 02/05/19 02:16 Tylenol - PO 650 mg Q4H PRN Administration PAIN OR FEVER Amiodarone HCl 200 mg 02/03/19 10:00 02/05/19 09:24 Cordarone - PO 200 mg BID [facility] Administration Apixaban 5 mg 02/02/19 10:00 02/05/19 09:24 Eliquis - PO 5 mg BID [facility] Administration Atorvastatin Calcium 10 mg 02/02/19 22:00 02/04/19 22:42 Lipitor - PO 10 mg HS [facility] Administration Folic Acid 1 mg 02/02/19 10:00 02/05/19 09:24 Folic Acid - PO 1 mg DAILY [facility] Administration Furosemide 40 mg 02/05/19 14:35 Lasix Injection - IVPUSH ALARM TECHNICIAN [facility] Cefepime HCl 1 gm/ Dextrose 100 mls @ 200 mls/hr 02/04/19 22:00 02/05/19 09: 25 IVPB 200 mls/hr BID [facility] Administration Protocol Insulin Aspart 1 vial 02/02/19 07:00 02/05/19 10:58 Novolog Vial Sliding Scale - SQ Not Given ACHS [facility] Protocol Insulin Detemir 20 units 02/02/19 08:15 02/05/19 06:27 Levemir Vial SQ 20 unit AM [facility] Administration Ipratropium [place] 1 amp 02/03/19 18:09 02/05/19 09:00 Atrovent 0.02% Nebulizer - NEB 02/10/19 18:09 1 amp Q6H PRN Administration Dyspnea Lidocaine 1 patch 02/03/19 11:45 02/05/19 09:25 Lidoderm Patch - TP 1 patch DAILY [facility] Administration Metoprolol Succinate 100 mg 02/03/19 10:00 02/05/19 09:24 Toprol Xl - PO 100 mg BID [facility] Administration Miscellaneous 1 each 02/03/19 22:00 02/04/19 22:44 Lidoderm Patch Removal MC 1 each DAILY@2200 [facility] Administration Non-Formulary Medication 145 mcg 02/02/19 10:00 Linaclotide [Linzess] PO DAILY [facility] Ibrqx-5-Agxa Ethyl Esters 2 gm 02/02/19 22:00 02/05/19 09:24 Lovaza - PO 2 gm BID [facility] Administration Polyethylene Glycol 17 gm 02/02/19 10:00 02/05/19 09:25 Miralax (For Daily Use) - PO 17 gm DAILY [facility] Administration Ranolazine 1,000 mg 02/02/19 10:00 02/05/19 09:23 Ranexa - PO 1,000 mg BID [facility] Administration Sodium Bicarbonate 650 mg 02/02/19 10:00 02/05/19 09:23 Sodium Bicarbonate - PO 650 mg BID [facility] Administration Umeclidinium/Vilanterol 1 puff 02/02/19 10:00 02/05/19 09:26 Anoro Ellipta 62.5-25 Mcg Inh IH 1 puff DAILY [facility] Administration Impression 1. CKD 2. HTN 3. DM 4. resp failure requiring bipap 5. anemia 6. CHF Plan - cont IV lasix, he already received a dose today - stop po bicarb - monitor labs daily - pulm status is improving - hold arb for now until we stabilize volume status
[2019-02-05] MEDS ORDERED: FUROSEMIDE 40 MG/4 ML INJECTABLE VIAL ONE (17:05)
--- NOTE | 2019-02-05 17:37 | PN ---
Progress Note (short form) - Note Progress Note: back on bipap he is alert denies chest pain or abdominal pain Vital Signs Period Temp Pulse Resp BP Sys/Renteria Pulse Ox Last 24 Hr 96.6 F-98.7 F 79-89 20-24 86-109/46-84 97-100 cor-rrr llungs decreased bs at bases abd soft,nt ext no edema reddy with clear urine CBC, BMP 02/05/19 06:20 02/05/19 06:00 Microbiology 02/02/19 16:00 Sputum - Expectorated Gram Stain - Final 02/02/19 16:00 Sputum - Expectorated Sputum Culture - Final NORMAL RESPIRATORY HARLAN 02/04/19 16:00 Urine For Antigen Detection Legionella Antigen - Final 02/04/19 16:00 Urine For Antigen Detection Streptococcus pneumoniae Antigen (M - Final 02/03/19 20:20 Urine - Urine Reddy Urine Culture - Final NO GROWTH OBTAINED 02/04/19 01:00 Blood - Peripheral Venous Blood Culture - Preliminary NO GROWTH OBTAINED AFTER 24 HOURS, INCUBATION TO CONTINUE FOR 4 DAYS. 02/04/19 01:00 Blood - Peripheral Venous Blood Culture - Preliminary NO GROWTH OBTAINED AFTER 24 HOURS, INCUBATION TO CONTINUE FOR 4 DAYS. a/p fevers resolved cannot r/o pneumonia in the setting of recent rib fracture and recent hospital admission chf copd ckd continue cefepime adjusted for ckd f/u cultures Problem List - Problems (1) Fever Code(s): R50.9 - FEVER, UNSPECIFIED (2) Pneumonia Code(s): J18.9 - PNEUMONIA, UNSPECIFIED ORGANISM (3) Rib fractures Code(s): S22.39XA - FRACTURE OF ONE RIB, UNSP SIDE, INIT FOR CLOS FX (4) Acute on chronic diastolic (congestive) heart failure Code(s): I50.33 - ACUTE ON CHRONIC DIASTOLIC (CONGESTIVE) HEART FAILURE (5) COPD (chronic obstructive pulmonary disease) Code(s): J44.9 - CHRONIC OBSTRUCTIVE PULMONARY DISEASE, UNSPECIFIED (6) CKD (chronic kidney disease) Code(s): N18.9 - CHRONIC KIDNEY DISEASE, UNSPECIFIED
[2019-02-05] MEDS: ATORVASTATIN CA 10 MG TABLET (FP) PO SCH (21:38)
[2019-02-05] MEDS: LIDOCAINE PATCH REMOVAL MC SCH (21:39)
[2019-02-06] MEDS: INSULIN SLIDING SCALE (NOVOLOG) 1 VIAL SQ SCH ×4 (06:15→23:05)
[2019-02-06] MEDS: INSULIN (LEVEMIR) 100 UNITS/ML UNITS SQ SCH (06:49)
[2019-02-06 07:54] LABS: BASO % 0.2 % (0-2.0); EOS % 0.5 % (0-4.5); HEMATOCRIT 26.1 % (35.4-49); HEMOGLOBIN 8.5 GM/dL (11.7-16.9); LYMPH % 8.8 % (8-40); MCH 30.9 pg (25.7-33.7); MCHC 32.5 g/dl (32.0-35.9); MEAN PLT VOLUME 10.7 fl (7.5-11.1); MONO % 12.1 % (3.8-10.2); NEUT % 78.4 % (42.8-82.8); PLATELET COUNT 183 K/MM3 (134-434); RBC 2.74 M/mm3 (4.00-5.60); RDW 29.1 % (11.9-15.9); WHITE BLOOD COUNT 13.5 K/mm3 (4.0-10.0)
[2019-02-06 07:58] LABS: ALBUMIN 3.2 g/dl (3.4-5.0); ALK PHOS 67 U/L (45-117); ANION GAP 9 MMOL/L (8-16); BILIRUBIN,TOTAL 1.6 mg/dL (0.2-1); BLOOD UREA NITROGEN 80 mg/dL (7-18); CALCIUM 8.8 mg/dL (8.5-10.1); CHLORIDE 97 mmol/L (98-107); CO2 28 mmol/L (21-32); CREATININE 3.5 mg/dL (0.55-1.3); GLUCOSE,RANDOM 143 mg/dL (74-106); POTASSIUM 4.6 mmol/L (3.5-5.1); SGOT/AST 611 U/L (15-37); SGPT/ALT 635 U/L (13-61); SODIUM 134 mmol/L (136-145); TOT PROT 7.2 g/dl (6.4-8.2)
[2019-02-06 08:18] LABS: PROTHROMBIN TIME (PATIENT) 53.1 SEC (9.7-13.0)
[2019-02-06] MEDS ORDERED: DEXTROSE 5%-WATER 100 ML IVPB ONE (09:18)
[2019-02-06] MEDS ORDERED: CEFEPIME HCL 1 GM VIAL (RESTRICTED TO ID) ONE (09:18)
[2019-02-06 09:26] LABS: PROTHROMBIN TIME (PATIENT) 52.5 SEC (9.7-13.0)
[2019-02-06 09:31] LABS: INR 4.38 (0.83-1.09)
[2019-02-06 09:34] LABS: INR 4.43 (0.83-1.09)
[2019-02-06] MEDS: CEFEPIME 1 GM in DEXTROSE 5%-WATER 100 ML IVPB SCH (09:49)
[2019-02-06] MEDS: LIDOCAINE 5% TOPICAL PATCH TP SCH (09:50)
[2019-02-06] MEDS: AMIODARONE HCL 200 MG TABLET (FP) PO SCH ×2 (09:50→23:30)
[2019-02-06] MEDS: FOLIC ACID 1 MG TABLET (FP) PO SCH (09:51)
[2019-02-06] MEDS: OMEGA-3 ACID ETHYL ESTERS (FATTY-ACIDS) 1 GM CAPSULE (FP) PO SCH ×2 (09:51→23:43)
[2019-02-06] MEDS: APIXABAN 5 MG TABLET PO SCH (09:51)
[2019-02-06] MEDS: RANOLAZINE E.R. 1,000 MG TABLET (FP) PO SCH ×2 (09:51→23:42)
[2019-02-06] MEDS: POLYETHYLENE GLYCOL 3350 119 GM BTL PO SCH (09:52)
[2019-02-06] MEDS: UMECLIDINIUM/VILANTEROL (ANORO) 62.5/25 MCG INHALER IH SCH (09:53)
--- NOTE | 2019-02-06 10:27 | PN ---
Progress Note, Physician - Current Medication List Current Medications: Active Medications Acetaminophen (Tylenol -) 650 mg PO Q4H PRN PRN Reason: PAIN OR FEVER Last Admin: 02/05/19 21:38 Dose: 650 mg Amiodarone HCl (Cordarone -) 200 mg PO BID [facility] Last Admin: 02/06/19 09:50 Dose: 200 mg Apixaban (Eliquis -) 5 mg PO BID [facility] Last Admin: 02/06/19 09:51 Dose: 5 mg Atorvastatin Calcium (Lipitor -) 10 mg PO HS [facility] Last Admin: 02/05/19 21:38 Dose: 10 mg Folic Acid (Folic Acid -) 1 mg PO DAILY [facility] Last Admin: 02/06/19 09:51 Dose: 1 mg Cefepime HCl 1 gm/ Dextrose 100 mls @ 200 mls/hr IVPB BID [facility]; Protocol Last Admin: 02/06/19 09:49 Dose: 200 mls/hr Insulin Aspart (Novolog Vial Sliding Scale -) 1 vial SQ ACHS [facility]; Protocol Last Admin: 02/06/19 06:15 Dose: Not Given Insulin Detemir (Levemir Vial) 20 units SQ AM [facility] Last Admin: 02/06/19 06:49 Dose: 20 unit Ipratropium [place] (Atrovent 0.02% Nebulizer -) 1 amp NEB Q6H PRN PRN Reason: Dyspnea Stop: 02/10/19 18:09 Last Admin: 02/05/19 22:33 Dose: 1 amp Lidocaine (Lidoderm Patch -) 1 patch TP DAILY [facility] Last Admin: 02/06/19 09:50 Dose: 1 patch Metoprolol Succinate (Toprol Xl -) 100 mg PO BID [facility] Last Admin: 02/06/19 09:51 Dose: 100 mg Miscellaneous (Lidoderm Patch Removal) 1 each MC DAILY@2200 [facility] Last Admin: 02/05/19 21:39 Dose: 1 each Non-Formulary Medication (Linaclotide [Linzess]) 145 mcg PO DAILY [facility] Rwthp-5-Cflc Ethyl Esters (Lovaza -) 2 gm PO BID [facility] Last Admin: 02/06/19 09:51 Dose: 2 gm Polyethylene Glycol (Miralax (For Daily Use) -) 17 gm PO DAILY [facility] Last Admin: 02/06/19 09:52 Dose: Not Given Ranolazine (Ranexa -) 1,000 mg PO BID [facility] Last Admin: 02/06/19 09:51 Dose: 1,000 mg Umeclidinium/Vilanterol (Anoro Ellipta 62.5-25 Mcg Inh) 1 puff IH DAILY [facility] Last Admin: 02/06/19 09:53 Dose: 1 puff - Objective Vital Signs: Vital Signs Temperature 98.0 F 02/06/19 08:16 Pulse Rate 71 02/06/19 08:16 Respiratory Rate 22 H 02/06/19 08:23 Blood Pressure 100/65 02/06/19 08:16 O2 Sat by Pulse Oximetry (%) 97 02/05/19 22:00 Cardiovascular: Yes: S1, S2 Respiratory: Yes: Diminished, On Nasal O2, Rhonchi Gastrointestinal: Yes: Normal Bowel Sounds, Soft Labs: CBC, BMP 02/06/19 07:15 02/06/19 07:15 INR, PTT INR 4.38 (0.83-1.09) H* 02/06/19 08:50 Assessment/Plan - Problems (1) Fever Assessment/Plan: resolved ID on board iv abx cultures Microbiology 02/04/19 16:00 Urine - Urine Hinds Urine Culture - Final NO GROWTH OBTAINED 02/04/19 01:00 Blood - Peripheral Venous Blood Culture - Preliminary NO GROWTH OBTAINED AFTER 48 HOURS, INCUBATION TO CONTINUE FOR 3 DAYS. 02/04/19 01:00 Blood - Peripheral Venous Blood Culture - Preliminary NO GROWTH OBTAINED AFTER 48 HOURS, INCUBATION TO CONTINUE FOR 3 DAYS. 02/02/19 16:00 Sputum - Expectorated Gram Stain - Final 02/02/19 16:00 Sputum - Expectorated Sputum Culture - Final NORMAL RESPIRATORY [facility] 02/04/19 16:00 Urine For Antigen Detection Legionella Antigen - Final 02/04/19 16:00 Urine For Antigen Detection Streptococcus pneumoniae Antigen (M - Final 02/03/19 20:20 Urine - Urine Hinds Urine Culture - Final NO GROWTH OBTAINED Code(s): R50.9 - FEVER, UNSPECIFIED (2) Rib fractures Assessment/Plan: pain control Code(s): S22.39XA - FRACTURE OF ONE RIB, UNSP SIDE, INIT FOR CLOS FX (3) Acute on chronic diastolic (congestive) heart failure Assessment/Plan: iv lasix per cardio -renal ct chest Code(s): I50.33 - ACUTE ON CHRONIC DIASTOLIC (CONGESTIVE) HEART FAILURE (4) Atrial flutter Assessment/Plan: amiodarone dc eliquis in view of inr and renal function toprol Code(s): I48.92 - UNSPECIFIED ATRIAL FLUTTER (5) CKD (chronic kidney disease) Assessment/Plan: worsening renal on board hold arb/acei Code(s): N18.9 - CHRONIC KIDNEY DISEASE, UNSPECIFIED (6) Diabetes Assessment/Plan: iinsulin bgm Code(s): E11.9 - TYPE 2 DIABETES MELLITUS WITHOUT COMPLICATIONS Qualifiers: Diabetes mellitus type: type 2 (7) Abnormal LFT Hold tylenol-lipitor amio per cardio ct scan gi consult (8) COPD (chronic obstructive pulmonary disease) Assessment/Plan: bipap oxygen ct Code(s): J44.9 - CHRONIC OBSTRUCTIVE PULMONARY DISEASE, UNSPECIFIED
[2019-02-06 10:56] LABS: ANISOCYTOSIS 0; MACROCYTOSIS 1+; PLATELET ESTIMATE NORMAL; TEAR DROP CELLS 1+
--- NOTE | 2019-02-06 10:56 | PN ---
Progress Note, Physician History of Present Illness: Pt seen and examined at bedside. He is awake and alert. He feels that his breathing is a little better today. He is on home oxygen at baseline. - Current Medication List Current Medications: Active Medications Amiodarone HCl (Cordarone -) 200 mg PO BID [facility] Last Admin: 02/06/19 09:50 Dose: 200 mg Folic Acid (Folic Acid -) 1 mg PO DAILY [facility] Last Admin: 02/06/19 09:51 Dose: 1 mg Cefepime HCl 1 gm/ Dextrose 100 mls @ 200 mls/hr IVPB BID [facility]; Protocol Last Admin: 02/06/19 09:49 Dose: 200 mls/hr Insulin Aspart (Novolog Vial Sliding Scale -) 1 vial SQ ACHS [facility]; Protocol Last Admin: 02/06/19 06:15 Dose: Not Given Insulin Detemir (Levemir Vial) 20 units SQ AM [facility] Last Admin: 02/06/19 06:49 Dose: 20 unit Ipratropium [place] (Atrovent 0.02% Nebulizer -) 1 amp NEB Q6H PRN PRN Reason: Dyspnea Stop: 02/10/19 18:09 Last Admin: 02/05/19 22:33 Dose: 1 amp Lidocaine (Lidoderm Patch -) 1 patch TP DAILY [facility] Last Admin: 02/06/19 09:50 Dose: 1 patch Metoprolol Succinate (Toprol Xl -) 100 mg PO BID [facility] Last Admin: 02/06/19 09:51 Dose: 100 mg Miscellaneous (Lidoderm Patch Removal) 1 each MC DAILY@2200 [facility] Last Admin: 02/05/19 21:39 Dose: 1 each Non-Formulary Medication (Linaclotide [Linzess]) 145 mcg PO DAILY [facility] Myrvz-1-Apxc Ethyl Esters (Lovaza -) 2 gm PO BID [facility] Last Admin: 02/06/19 09:51 Dose: 2 gm Polyethylene Glycol (Miralax (For Daily Use) -) 17 gm PO DAILY [facility] Last Admin: 02/06/19 09:52 Dose: Not Given Ranolazine (Ranexa -) 1,000 mg PO BID [facility] Last Admin: 02/06/19 09:51 Dose: 1,000 mg Umeclidinium/Vilanterol (Anoro Ellipta 62.5-25 Mcg Inh) 1 puff IH DAILY [facility] Last Admin: 02/06/19 09:53 Dose: 1 puff - Objective Vital Signs: Vital Signs Temperature 98.0 F 02/06/19 08:16 Pulse Rate 71 02/06/19 08:16 Respiratory Rate 22 H 02/06/19 08:23 Blood Pressure 100/65 02/06/19 08:16 O2 Sat by Pulse Oximetry (%) 97 02/05/19 22:00 Constitutional: Yes: Calm Eyes: Yes: Conjunctiva Clear HENT: Yes: Atraumatic Neck: Yes: Supple Cardiovascular: Yes: S1, S2 Respiratory: Yes: CTA Bilaterally, On Nasal O2 Gastrointestinal: Yes: Soft Genitourinary: Yes: Hinds Present Musculoskeletal: Yes: Muscle Weakness Edema: No Neurological: Yes: Oriented Psychiatric: Yes: Oriented Labs: CBC, BMP 02/06/19 07:15 02/06/19 07:15 INR, PTT INR 4.38 (0.83-1.09) H* 02/06/19 08:50 Assessment/Plan Current Medications Generic Name Dose Route Start Last Admin Trade Name Freq PRN Reason Stop Dose Admin Amiodarone HCl 200 mg 02/03/19 10:00 02/06/19 09:50 Cordarone - PO 200 mg BID [facility] Administration Folic Acid 1 mg 02/02/19 10:00 02/06/19 09:51 Folic Acid - PO 1 mg DAILY [facility] Administration Cefepime HCl 1 gm/ Dextrose 100 mls @ 200 mls/hr 02/04/19 22:00 02/06/19 09: 49 IVPB 200 mls/hr BID [facility] Administration Protocol Insulin Aspart 1 vial 02/02/19 07:00 02/06/19 06:15 Novolog Vial Sliding Scale - SQ Not Given ACHS [facility] Protocol Insulin Detemir 20 units 02/02/19 08:15 02/06/19 06:49 Levemir Vial SQ 20 unit AM [facility] Administration Ipratropium [place] 1 amp 02/03/19 18:09 02/05/19 22:33 Atrovent 0.02% Nebulizer - NEB 02/10/19 18:09 1 amp Q6H PRN Administration Dyspnea Lidocaine 1 patch 02/03/19 11:45 02/06/19 09:50 Lidoderm Patch - TP 1 patch DAILY [facility] Administration Metoprolol Succinate 100 mg 02/03/19 10:00 02/06/19 09:51 Toprol Xl - PO 100 mg BID [facility] Administration Miscellaneous 1 each 02/03/19 22:00 02/05/19 21:39 Lidoderm Patch Removal MC 1 each DAILY@2200 [facility] Administration Non-Formulary Medication 145 mcg 02/02/19 10:00 Linaclotide [Linzess] PO DAILY [facility] Seeut-6-Kdyw Ethyl Esters 2 gm 02/02/19 22:00 02/06/19 09:51 Lovaza - PO 2 gm BID [facility] Administration Polyethylene Glycol 17 gm 02/02/19 10:00 02/06/19 09:52 Miralax (For Daily Use) - PO Not Given DAILY [facility] Ranolazine 1,000 mg 02/02/19 10:00 02/06/19 09:51 Ranexa - PO 1,000 mg BID [facility] Administration Umeclidinium/Vilanterol 1 puff 02/02/19 10:00 02/06/19 09:53 Anoro Ellipta 62.5-25 Mcg Inh IH 1 puff DAILY [facility] Administration Impression 1. CKD 2. HTN 3. DM 4. resp failure requiring bipap 5. anemia 6. CHF Plan - renal function worse today - will hold lasix today - repeat labs in am - monitor urine output - hold arb for now until we stabilize volume status
--- NOTE | 2019-02-06 11:00 | PN ---
Progress Note, Physician - Current Medication List Current Medications: Active Medications Amiodarone HCl (Cordarone -) 200 mg PO BID [facility] Last Admin: 02/06/19 09:50 Dose: 200 mg Folic Acid (Folic Acid -) 1 mg PO DAILY [facility] Last Admin: 02/06/19 09:51 Dose: 1 mg Cefepime HCl 1 gm/ Dextrose 100 mls @ 200 mls/hr IVPB BID [facility]; Protocol Last Admin: 02/06/19 09:49 Dose: 200 mls/hr Insulin Aspart (Novolog Vial Sliding Scale -) 1 vial SQ ACHS [facility]; Protocol Last Admin: 02/06/19 06:15 Dose: Not Given Insulin Detemir (Levemir Vial) 20 units SQ AM [facility] Last Admin: 02/06/19 06:49 Dose: 20 unit Ipratropium [place] (Atrovent 0.02% Nebulizer -) 1 amp NEB Q6H PRN PRN Reason: Dyspnea Stop: 02/10/19 18:09 Last Admin: 02/05/19 22:33 Dose: 1 amp Lidocaine (Lidoderm Patch -) 1 patch TP DAILY [facility] Last Admin: 02/06/19 09:50 Dose: 1 patch Metoprolol Succinate (Toprol Xl -) 100 mg PO BID [facility] Last Admin: 02/06/19 09:51 Dose: 100 mg Miscellaneous (Lidoderm Patch Removal) 1 each MC DAILY@2200 [facility] Last Admin: 02/05/19 21:39 Dose: 1 each Non-Formulary Medication (Linaclotide [Linzess]) 145 mcg PO DAILY [facility] Inlhh-3-Wfmf Ethyl Esters (Lovaza -) 2 gm PO BID [facility] Last Admin: 02/06/19 09:51 Dose: 2 gm Polyethylene Glycol (Miralax (For Daily Use) -) 17 gm PO DAILY [facility] Last Admin: 02/06/19 09:52 Dose: Not Given Ranolazine (Ranexa -) 1,000 mg PO BID [facility] Last Admin: 02/06/19 09:51 Dose: 1,000 mg Umeclidinium/Vilanterol (Anoro Ellipta 62.5-25 Mcg Inh) 1 puff IH DAILY [facility] Last Admin: 02/06/19 09:53 Dose: 1 puff - Objective Vital Signs: Vital Signs Temperature 98.0 F 02/06/19 08:16 Pulse Rate 71 02/06/19 08:16 Respiratory Rate 22 H 02/06/19 08:23 Blood Pressure 100/65 02/06/19 08:16 O2 Sat by Pulse Oximetry (%) 97 02/05/19 22:00 Eyes: Yes: WNL, Conjunctiva Clear, EOM Intact HENT: Yes: WNL, Atraumatic, Normocephalic Neck: Yes: WNL, Supple, Trachea Midline Cardiovascular: Yes: WNL, Regular Rate and Rhythm Respiratory: Yes: WNL, Regular, CTA Bilaterally Gastrointestinal: Yes: WNL, Normal Bowel Sounds Genitourinary: Yes: WNL Musculoskeletal: Yes: WNL Extremities: Yes: WNL Edema: No Integumentary: Yes: WNL Neurological: Yes: WNL, Alert, Oriented ...Motor Strength: WNL Psychiatric: Yes: WNL Labs: CBC, BMP 02/06/19 07:15 02/06/19 07:15 INR, PTT INR 4.38 (0.83-1.09) H* 02/06/19 08:50 Assessment/Plan 1. Fall with chest wall trauma, no reported syncope 2. CAD post CABG/PCI/GERALD demand ischemic injury angina pectoris 3. Acute on chronic class I-II NYHA classification LV failure related to diastolic/systolic LV dysfunction, clinical decompensation 4. Persistent atrial flutter with rapid ventricular response [id number] score of 5, ATP pacing noted inappropriate 5. Post prophylactic ICD implant 6. HTN 7. DM 8. Hypercholesterolemia 9. COPD 10. CKD 11. Anemia PLAN: 1. As outlined yesterday recommend D/C ASA and continue Eliquis with caution, A/ C should be continued indefinitely unless it is absolutely contraindicated considering the above noted [id number] score of 5 2. Change Toprol XL to twice daily administration and add Amiodarone/short term to assist with rate control and possible conversion 3. Continue Ranexa 4. Ideally should be on ACEI or ARBS unless it is absolutely contraindicated, to be discussed with renal service 5. Continue Lipitor 6. IV Lasix this AM in view of the above noted presentation, diuretic use with close monitoring of renal function and electrolytes 7. refused ERIKA guided synchronized cardioversion of the above noted arrhythmia/ atrial flutter
--- NOTE | 2019-02-06 11:25 | PN ---
Progress Note, Physician History of Present Illness: PULMONARY AWAKE,WEAK,DYSPNEA IMPROVING ON NASAL CANNULA - Current Medication List Current Medications: Active Medications Amiodarone HCl (Cordarone -) 200 mg PO BID [facility] Last Admin: 02/06/19 09:50 Dose: 200 mg Folic Acid (Folic Acid -) 1 mg PO DAILY [facility] Last Admin: 02/06/19 09:51 Dose: 1 mg Cefepime HCl 1 gm/ Dextrose 100 mls @ 200 mls/hr IVPB BID [facility]; Protocol Last Admin: 02/06/19 09:49 Dose: 200 mls/hr Insulin Aspart (Novolog Vial Sliding Scale -) 1 vial SQ ACHS [facility]; Protocol Last Admin: 02/06/19 06:15 Dose: Not Given Insulin Detemir (Levemir Vial) 20 units SQ AM [facility] Last Admin: 02/06/19 06:49 Dose: 20 unit Ipratropium [place] (Atrovent 0.02% Nebulizer -) 1 amp NEB Q6H PRN PRN Reason: Dyspnea Stop: 02/10/19 18:09 Last Admin: 02/05/19 22:33 Dose: 1 amp Lidocaine (Lidoderm Patch -) 1 patch TP DAILY [facility] Last Admin: 02/06/19 09:50 Dose: 1 patch Metoprolol Succinate (Toprol Xl -) 100 mg PO BID [facility] Last Admin: 02/06/19 09:51 Dose: 100 mg Miscellaneous (Lidoderm Patch Removal) 1 each MC DAILY@2200 [facility] Last Admin: 02/05/19 21:39 Dose: 1 each Non-Formulary Medication (Linaclotide [Linzess]) 145 mcg PO DAILY [facility] Iofbh-4-Keph Ethyl Esters (Lovaza -) 2 gm PO BID [facility] Last Admin: 02/06/19 09:51 Dose: 2 gm Polyethylene Glycol (Miralax (For Daily Use) -) 17 gm PO DAILY [facility] Last Admin: 02/06/19 09:52 Dose: Not Given Ranolazine (Ranexa -) 1,000 mg PO BID [facility] Last Admin: 02/06/19 09:51 Dose: 1,000 mg Umeclidinium/Vilanterol (Anoro Ellipta 62.5-25 Mcg Inh) 1 puff IH DAILY [facility] Last Admin: 02/06/19 09:53 Dose: 1 puff - Objective Vital Signs: Vital Signs Temperature 98.0 F 04/24/19 08:16 Pulse Rate 71 02/06/19 08:16 Respiratory Rate 22 H 02/06/19 08:23 Blood Pressure 100/65 02/06/19 08:16 O2 Sat by Pulse Oximetry (%) 97 02/05/19 22:00 Constitutional: Yes: Well Nourished, Calm Eyes: Yes: WNL HENT: Yes: WNL Neck: Yes: WNL Cardiovascular: Yes: Regular Rate and Rhythm, S1, S2 Respiratory: Yes: Diminished Gastrointestinal: Yes: Normal Bowel Sounds, Soft Extremities: Yes: WNL Edema: Yes Labs: CBC, BMP 02/06/19 07:15 02/06/19 07:15 INR, PTT INR 4.38 (0.83-1.09) H* 02/06/19 08:50 Problem List - Problems (1) Acute on chronic diastolic (congestive) heart failure Code(s): I50.33 - ACUTE ON CHRONIC DIASTOLIC (CONGESTIVE) HEART FAILURE (2) Anemia Code(s): D64.9 - ANEMIA, UNSPECIFIED (3) CKD (chronic kidney disease) Code(s): N18.9 - CHRONIC KIDNEY DISEASE, UNSPECIFIED (4) COPD (chronic obstructive pulmonary disease) Code(s): J44.9 - CHRONIC OBSTRUCTIVE PULMONARY DISEASE, UNSPECIFIED (5) Diabetes Code(s): E11.9 - TYPE 2 DIABETES MELLITUS WITHOUT COMPLICATIONS Qualifiers: Diabetes mellitus type: type 2 (6) HTN (hypertension) Code(s): I10 - ESSENTIAL (PRIMARY) HYPERTENSION (7) History of heart artery stent Code(s): Z95.5 - PRESENCE OF CORONARY ANGIOPLASTY IMPLANT AND GRAFT (8) Leg edema Code(s): R60.0 - LOCALIZED EDEMA (9) Presence of cardiac pacemaker Code(s): Z95.0 - PRESENCE OF CARDIAC PACEMAKER (10) Sleep apnea Code(s): G47.30 - SLEEP APNEA, UNSPECIFIED Assessment/Plan Assessment/Plan s/p Fall Acute on Chronic Systolic/Diastolic Heart Failure Atrial Flutter with RVR COPD Chronic Hypoxic Respiratory Failure CAD s/p CABG HTN DM Hypercholesterolemia CKD - IV lasix as per Cardiology - daily weights - monitor CXR - monitor lytes,renal function - rate control - continue anticoagulation - O2 to keep Spo2 >90% - BiPAP at night and PRN during the day DR MANNING
--- NOTE | 2019-02-06 12:03 | CON.GI ---
Consult Consult Specialty:: Gastroenterology Referred by:: Dr. Rory Cabezas Reason for Consultation:: Abnormal LFTs - History of Present Illness Chief Complaint: Difficulty breathing History of Present Illness: 73M readmitted after a fall after a recent discharge after being treated for CHF. He again lapsed into pulmonary edema on this admission and his initially normal LFTs have risen abruptly. His sonogram reveals gallstones and a fatty liver but no ductal dilation and he denies abdominal pain. He denies any personal or FH of liver disease. He quit smoking and drinking alcohol after hs NM and CABG in 2004. He has a peptic ulcer remotely but no bleed. He had a colonoscopy with Dr. Abreu but cannot recall when and denies being told of polyps. He moves his bowels regularly and has a good appetite. He has no present GI complaints aside from chronic constipation. No FH of GI cancer. He is a patient of Dr Sauceda. - History Source History Provided By: Patient Limitations to Obtaining History: No Limitations - Past Medical History Cardio/Vascular: Yes: CAD (S/P CABG in 2004 at [facility] and subsequent stents), CHF ( SHF- EF unknown), HTN, Hyperlipdemia, [place] (2004), Pulmonary Hypertension, Other ( PPM placed at [facility], atrial flutter) Pulmonary: Yes: COPD, O2 Dependent, Sleep Apnea Gastrointestinal: Yes: Constipation, Peptic Ulcer Disease (remotely) Hepatobiliary: Yes: Cholelithiasis, Other (fatty liver) Renal/: Yes: Renal Inusuff Infectious Disease: Yes: Other (meningitis as an ) Musculoskeletal: Yes: Osteoarthritis - Past Surgical History Past Surgical History: Yes: CABG, Colonoscopy, Permanent Pacemaker, Stent ( coronary stents 2009) - Alcohol/Substance Use Hx Alcohol Use: Yes (quit in 2004) History of Substance Use: reports: None - Smoking History Smoking history: Former smoker Have you smoked in the past 12 months: No If you are a former smoker, when did you quit?: 2004 - Social History Usual Living Arrangement: With Child ADL: Independent 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year): age 7 History of Recent Travel: No Home Medications - Allergies Allergies/Adverse Reactions: Allergies Allergy/AdvReac Type Severity Reaction Status Date / Time No Known Allergies Allergy Verified 01/25/19 12:44 - Home Medications Home Medications: Ambulatory Orders Aspirin [Aspirin EC] 81 mg PO DAILY 09/12/17 Insulin Aspart [Novolog Flexpen] 5 unit SQ TID 09/12/17 Albuterol Sulfate Inhaler - [Ventolin HFA Inhaler -] 1 - 2 inh PO Q4H 09/13/17 Docusate Sodium [Colace -] 100 mg PO DAILY 09/13/17 Folic Acid 1 mg PO DAILY 09/13/17 Linaclotide [Linzess] 145 mcg PO DAILY 09/13/17 Umeclidinium Brm/Vilanterol Tr [Anoro Ellipta 62.5-25 Mcg INH] 1 each IH DAILY 09/13/17 Atorvastatin Calcium [Lipitor] 10 mg PO DAILY 01/25/19 Icosapent Ethyl [Vascepa] 2 gm PO BID 01/25/19 Insulin Glargine,Hum.rec.anlog [Basaglar Kwikpen U-100] 20 unit SQ DAILY Ranolazine [Ranexa] 1,000 mg PO BID 01/25/19 Eltrombopag Olamine [Promacta] 100 mg PO 01/28/19 Acetaminophen [Tylenol .Regular Strength -] 650 mg PO Q4H PRN tablet 02/01/19 Apixaban [Eliquis -] 5 mg PO BID #60 tablet 02/01/19 Atorvastatin Ca [Lipitor] 10 mg PO HS tablet 02/01/19 Folic Acid - 1 mg PO DAILY tablet 02/01/19 Furosemide 80 mg PO DAILY #30 tablet 02/01/19 Insulin Sliding Scale [Novolog Vial Sliding Scale -] 1 vial SQ ACHS units 02/01 Meclizine HCl [Antivert -] 25 mg PO DAILY tablet 02/01/19 Metoprolol Succinate [Toprol XL -] 150 mg PO DAILY #30 tab.sr.24h 02/01/19 Polyethylene Glycol 3350 [Miralax 119 gm Btl -] 17 gm PO DAILY bottle 02/01/19 Ranolazine [Ranexa -] 1,000 mg PO BID tab 02/01/19 Sodium Bicarbonate - 650 mg PO BID tablet 02/01/19 Umeclidinium Brm/Vilanterol Tr [Anoro Ellipta 62.5-25 Mcg INH] 1 puff IH DAILY inhaler 02/01/19 Family Disease History - Family Disease History Other Family History: Uncle had a unknown cancer Review of Systems - Review of Systems Constitutional: reports: Lethargy Eyes: reports: No Symptoms HENT: reports: No Symptoms Neck: reports: No Symptoms Cardiovascular: reports: Palpitations, Shortness of Breath Respiratory: reports: Cough, Exercise Intolerance Gastrointestinal: reports: No Symptoms Genitourinary: reports: No Symptoms Musculoskeletal: reports: Back Pain, Joint Swelling, Muscle Pain, Muscle Cramps Physical Exam-GI Vital Signs: Vital Signs Temperature 98.0 F 02/06/19 08:16 Pulse Rate 71 02/06/19 08:16 Respiratory Rate 22 H 02/06/19 08:23 Blood Pressure 100/65 02/06/19 08:16 O2 Sat by Pulse Oximetry (%) 97 02/05/19 22:00 CBC,CMP WBC 13.5 K/mm3 (4.0-10.0) H 02/06/19 07:15 RBC 2.74 M/mm3 (4.00-5.60) L 02/06/19 07:15 Hgb 8.5 GM/dL (11.7-16.9) L 02/06/19 07:15 Hct 26.1 % (35.4-49) L 02/06/19 07:15 MCV 95.0 fl (80-96) 02/06/19 07:15 MCH 30.9 pg (25.7-33.7) 02/06/19 07:15 MCHC 32.5 g/dl (32.0-35.9) 02/06/19 07:15 RDW 29.1 % (11.9-15.9) H 02/06/19 07:15 Plt Count 183 K/MM3 (134-434) 02/06/19 07:15 MPV 10.7 fl (7.5-11.1) 02/06/19 07:15 Absolute Neuts (auto) 10.6 K/mm3 (1.5-8.0) H 02/06/19 07:15 Total Counted 100 02/02/19 01:04 Neutrophils % 78.4 % (42.8-82.8) 02/06/19 07:15 Neutrophils % (Manual) 72.9 % (42.8-82.8) 02/06/19 07:15 Band Neutrophils % 11.5 % 02/06/19 07:15 Lymphocytes % 8.8 % (8-40) 02/06/19 07:15 Lymphocytes % (Manual) 2.1 % (8-40) L D 02/06/19 07:15 Monocytes % 12.1 % (3.8-10.2) H 02/06/19 07:15 Monocytes % (Manual) 7 % (3.8-10.2) 02/06/19 07:15 Eosinophils % 0.5 % (0-4.5) D 02/06/19 07:15 Eosinophils % (Manual) 1.1 % (0-4.5) D 02/06/19 07:15 Basophils % 0.2 % (0-2.0) 02/06/19 07:15 Basophils % (Manual) 0.0 % (0-2.0) 02/06/19 07:15 Myelocytes % (Man) 3 % (0-2) H D 02/06/19 07:15 Promyelocytes % (Man) 0 % (0-2) 02/06/19 07:15 Blast Cells % (Manual) 0 % (0-0) 02/06/19 07:15 Nucleated RBC % 1 % (0-0) H 02/06/19 07:15 Metamyelocytes 1 % (0-2) D 02/06/19 07:15 Hypochromia 2+ 02/06/19 07:15 Platelet Estimate Normal 02/06/19 07:15 Platelet Comment Present 02/06/19 07:15 Polychromasia 1+ 02/06/19 07:15 Poikilocytosis 2+ 02/06/19 07:15 Basophilic Stippling 1+ 02/02/19 07:56 Anisocytosis 0 02/06/19 07:15 Microcytosis 2+ 02/06/19 07:15 Macrocytosis 1+ 02/06/19 07:15 Tear Drop Cells 1+ 02/06/19 07:15 Ovalocytes 1+ 02/02/19 07:56 Schistocytes 1+ 02/06/19 07:15 Sodium 134 mmol/L (136-145) L 02/06/19 07:15 Potassium 4.6 mmol/L (3.5-5.1) 02/06/19 07:15 Chloride 97 mmol/L (98-107) L 02/06/19 07:15 Carbon Dioxide 28 mmol/L (21-32) 02/06/19 07:15 Anion Gap 9 MMOL/L (8-16) 02/06/19 07:15 BUN 80 mg/dL (7-18) H 02/06/19 07:15 Creatinine 3.5 mg/dL (0.55-1.3) H 02/06/19 07:15 Creat Clearance w eGFR 17.35 (>60) 02/06/19 07:15 POC Glucometer 208 UNITS (80-120) 02/06/19 11:24 Random Glucose 143 mg/dL (74-106) H 02/06/19 07:15 Hemoglobin A1c % 7.6 % (4.2-6.3) H 02/03/19 05:00 Serum Osmolality 295 mosm/kg (278-305) 02/02/19 06:45 Lactic Acid 1.6 mmol/L (0.4-2.0) 02/05/19 06:20 Calcium 8.8 mg/dL (8.5-10.1) 02/06/19 07:15 Phosphorus 3.0 mg/dL (2.5-4.9) 02/02/19 07:56 Magnesium 1.9 mg/dL (1.8-2.4) 02/02/19 07:56 Total Bilirubin 1.6 mg/dL (0.2-1) H 02/06/19 07:15 AST 611 U/L (15-37) H 02/06/19 07:15 ALT 635 U/L (13-61) H 02/06/19 07:15 Alkaline Phosphatase 67 U/L (45-117) 02/06/19 07:15 Ammonia 42.60 umol/L (11-32) H 02/05/19 14:30 Creatine Kinase 70 U/L (26-308) 02/02/19 11:41 Troponin I 0.27 ng/ml (0.00-0.05) H 02/02/19 11:41 Total Protein 7.2 g/dl (6.4-8.2) 02/06/19 07:15 Albumin 3.2 g/dl (3.4-5.0) L 02/06/19 07:15 Triglycerides 58 mg/dL (0-150) 02/03/19 05:00 Cholesterol 97 mg/dL (50-200) 02/03/19 05:00 Total LDL Cholesterol 58 mg/dL (5-100) 02/03/19 05:00 HDL Cholesterol 32 mg/dL (40-60) L 02/03/19 05:00 Lipase 355 U/L (73-393) 02/02/19 01:04 Current Medications Generic Name Dose Route Start Last Admin Trade Name Freq PRN Reason Stop Dose Admin Amiodarone HCl 200 mg 02/03/19 10:00 02/06/19 09:50 Cordarone - PO 200 mg BID IAN Administration Folic Acid 1 mg 02/02/19 10:00 02/06/19 09:51 Folic Acid - PO 1 mg DAILY IAN Administration Cefepime HCl 1 gm/ Dextrose 100 mls @ 200 mls/hr 02/04/19 22:00 02/06/19 09: 49 IVPB 200 mls/hr BID IAN Administration Protocol Insulin Aspart 1 vial 02/02/19 07:00 02/06/19 06:15 Novolog Vial Sliding Scale - SQ Not Given ACHS [facility] Protocol Insulin Detemir 20 units 02/02/19 08:15 02/06/19 06:49 Levemir Vial SQ 20 unit AM IAN Administration Ipratropium [place] 1 amp 02/03/19 18:09 02/05/19 22:33 Atrovent 0.02% Nebulizer - NEB 02/10/19 18:09 1 amp Q6H PRN Administration Dyspnea Lidocaine 1 patch 02/03/19 11:45 02/06/19 09:50 Lidoderm Patch - TP 1 patch DAILY IAN Administration Metoprolol Succinate 100 mg 02/03/19 10:00 02/06/19 09:51 Toprol Xl - PO 100 mg BID IAN Administration Miscellaneous 1 each 02/03/19 22:00 02/05/19 21:39 Lidoderm Patch Removal MC 1 each DAILY@2200 IAN Administration Non-Formulary Medication 145 mcg 02/02/19 10:00 Linaclotide [Linzess] PO DAILY IAN [id number] Ethyl Esters 2 gm 02/02/19 22:00 02/06/19 09:51 Lovaza - PO 2 gm BID IAN Administration Polyethylene Glycol 17 gm 02/02/19 10:00 02/06/19 09:52 Miralax (For Daily Use) - PO Not Given DAILY IAN Ranolazine 1,000 mg 02/02/19 10:00 02/06/19 09:51 Ranexa - PO 1,000 mg BID IAN Administration Umeclidinium/Vilanterol 1 puff 02/02/19 10:00 02/06/19 09:53 Anoro Ellipta 62.5-25 Mcg Inh IH 1 puff DAILY IAN Administration Constitutional: Yes: Calm Eyes: Yes: Conjunctiva Clear HENT: Yes: Atraumatic Neck: Yes: Supple Cardiovascular: Yes: Regular Rate and Rhythm, S4 Respiratory: Yes: Rales, Rhonchi Gastrointestinal Inspection: Yes: Distention ...Auscultate: Yes: Normoactive Bowel Sounds ...Palpate: Yes: Soft, Other (nontender) ...Rectal Exam: Yes: Guaiac Negative (brown g neg stool, no rectal masses, 2+ prostate) Edema: LLE: 1+, RLE: 1+ Neurological: Yes: Alert, Oriented Labs: CBC, BMP 02/06/19 07:15 02/06/19 07:15 INR, PTT INR 4.38 (0.83-1.09) H* 02/06/19 08:50 Laboratory Tests 01/25/19 02/02/19 02/02/19 13:00 01:04 07:56 Total Bilirubin 1.2 H 1.0 AST 26 17 ALT 17 18 Alkaline Phosphatase 53 Hepatitis A IgM Ab Hep Bs Antigen Hep B Core IgM Ab Hepatitis C Antibody 02/04/19 02/05/19 02/06/19 05:30 06:00 07:15 Total Bilirubin 1.7 H 1.6 H AST 615 H 300 H 611 H ALT 442 H 340 H Alkaline Phosphatase 50 43 L 67 Hepatitis A IgM Ab Hep Bs Antigen Hep B Core IgM Ab Hepatitis C Antibody 02/06/19 11:30 Total Bilirubin AST ALT Alkaline Phosphatase Hepatitis A IgM Ab Pending Hep Bs Antigen Pending Hep B Core IgM Ab Pending Hepatitis C Antibody Pending Imaging - Results Ultrasound: Report Reviewed ( Final Report US ABDOMEN US -LIMITED Show Printer-Friendly Version with Image (1 of 1) Show Printer-Friendly Version without images Patient Name: Pranav Vergara : 1945 ID: [id number] Study Date: 05-Feb-2019 10:53 Enio Joshi Name: PRANAV VERGARA DEPARTMENT OF RADIOLOGY Phys: Kasia Hernandez MD : 1945 Age: 73 Sex: M [facility] Acct: [id number] Loc: [id number] [facility] Exam Date: 02/05/19 Status: [place] [address] Unit Number: [id number] EXAM#: TYPE/EXAM: RESULT: [id number] US/ABDOMEN US -LIMITED Fever. Abnormal liver function tests Right upper abdomen ultrasound. The liver is borderline in size measuring 17.6 cm in sagittal length with a slightly dense and coarse gallbladder is adequately distended with intraluminal stones and without wall thickening or pericholecystic free fluid. No intra or extrahepatic bile duct dilatation is seen. There is minimal free fluid/ascites in the right upper abdomen. The right kidney measures 11.2 cm sagittal length and appears unremarkable. Limited visualization of the pancreas. However, visualized portion of the pancreatic head and body appear unremarkable. Visualized portion of the proximal abdominal aorta and inferior vena cava appear unremarkable. Normal flow in the main portal vein. IMPRESSION: Borderline hepatomegaly with a slightly coarse and dense echotexture suggestive of mild fatty infiltration. Please correlate with liver enzymes. Gallstones measuring 1.6 cm without sonographic evidence of acute cholecystitis. Correlate clinically for further evaluation. Reported By: Kinsey Silverio MD [id number] Technologist: Shari Montenegro Transcribed Date/Time: 02/05/19 1241 Customs Collector: Kinsey Silverio Printed Date/Time: By: Signed by: Kinsey Silverio Signed on: 05-Feb-2019 12:43) Problem List - Problems (1) Abnormal liver function test Assessment/Plan: I suspect that the rise on LFTs reflects congestive hepatopathy due to given episode of CHF and that they will improve as does his cardiac function. I believe that his gallstones are innocent but LFTs fail to normalize imaging will need to be repeated. Unfortunately his PPM precludes an MRCP. I will screen for other liver diseases. He could have SHEPARD Code(s): R94.5 - ABNORMAL RESULTS OF LIVER FUNCTION STUDIES (2) Gallstones Code(s): K80.20 - CALCULUS OF GALLBLADDER W/O CHOLECYSTITIS W/O OBSTRUCTION (3) Hx of CABG Code(s): Z95.1 - PRESENCE OF AORTOCORONARY BYPASS GRAFT (4) Fatty liver Code(s): K76.0 - FATTY (CHANGE OF) LIVER, NOT ELSEWHERE CLASSIFIED (5) Acute on chronic diastolic (congestive) heart failure Code(s): I50.33 - ACUTE ON CHRONIC DIASTOLIC (CONGESTIVE) HEART FAILURE (6) (HFpEF) heart failure with preserved ejection fraction Code(s): I50.30 - UNSPECIFIED DIASTOLIC (CONGESTIVE) HEART FAILURE (7) Atrial flutter Code(s): I48.92 - UNSPECIFIED ATRIAL FLUTTER (8) COPD (chronic obstructive pulmonary disease) Code(s): J44.9 - CHRONIC OBSTRUCTIVE PULMONARY DISEASE, UNSPECIFIED (9) History of heart artery stent Code(s): Z95.5 - PRESENCE OF CORONARY ANGIOPLASTY IMPLANT AND GRAFT (10) Presence of cardiac pacemaker Code(s): Z95.0 - PRESENCE OF CARDIAC PACEMAKER (11) Sleep apnea Code(s): G47.30 - SLEEP APNEA, UNSPECIFIED Assessment/Plan Impression: Suspect congestive hepatopathy rather than gallstone passage given his lack of pain Fatty liver may portend SHEPARD Chronic constipation - the old colonoscopy report would be helpful Plan: Follow LFTs, if they fail to normalize will need to repeat imaging Hepatitis evaluation including Fibrosure Continue miralax and PPI
[2019-02-06] MEDS ORDERED: INSULIN (NOVOLOG) ASPART 100 UNITS/ML 10ML VIAL ONE (12:07)
[2019-02-06 15:40] LABS: ARTERIAL BLD GAS O2 SATURATION 97.1 % (95-98); ARTERIAL BLOOD GAS BASE EXCESS -0.7 meq/l (-2-2); ARTERIAL BLOOD GAS PCO2 33.9 mmHg (35-45); ARTERIAL BLOOD GAS PO2 89.5 mmHg (80-105); ARTERIAL BLOOD GAS pH 7.44 (7.35-7.45)
[2019-02-06 15:42] LABS: ALLENS TEST POSITIVE
--- NOTE | 2019-02-06 15:57 | CONSULT ---
Consult Consult Specialty:: Pulm/CCM Reason for Consultation:: Code rafat, AMS, acute on chronic hypoxemic respiratory failure - History of Present Illness History of Present Illness: 73 yo M h/o HTN, DM, hypercholesterolemia, COPD, chronic hypoxic respiratory failure on home O2, CAD s/p CABG, JARET, CKD, s/p code jose on 02/06 @ 3:10pm transferred to ICU for AMS with persistent hypotension. Patient was recently admitted for CHF exacerbation. He was treated with diuretics and discharged on and readmitted on 02/02 for a-flutter, worsening Cr, and s/p mechanical fall w/ bruising. Per nurse on telemetry, she noted the patient to be more lethargic and while in CT suite for CT a/p, patient began twitching. INR is noted to be elevated at 4.3. Pt on cefepime for suspected PNA. No fever overnight. - History Source History Provided By: Patient - Past Medical History Cardio/Vascular: Yes: CAD (S/P CABG in 2004 at [facility] and subsequent stents), CHF ( SHF- EF unknown), HTN, Hyperlipdemia, [place] (2004), Pulmonary Hypertension, Other ( PPM placed at [facility], atrial flutter) Pulmonary: Yes: COPD, O2 Dependent, Sleep Apnea Gastrointestinal: Yes: Constipation, Peptic Ulcer Disease (remotely) Hepatobiliary: Yes: Cholelithiasis, Other (fatty liver) Renal/: Yes: Renal Inusuff Infectious Disease: Yes: Other (meningitis as an infant) Musculoskeletal: Yes: Osteoarthritis - Past Surgical History Past Surgical History: Yes: CABG, Colonoscopy, Permanent Pacemaker, Stent ( coronary stents 2009) - Alcohol/Substance Use Hx Alcohol Use: Yes (quit in 2004) History of Substance Use: reports: None - Smoking History Smoking history: Former smoker Have you smoked in the past 12 months: No If you are a former smoker, when did you quit?: 2004 - Social History Usual Living Arrangement: With Child ADL: Independent 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 History of Recent Travel: No Home Medications - Allergies Allergies/Adverse Reactions: Allergies Allergy/AdvReac Type Severity Reaction Status Date / Time No Known Allergies Allergy Verified 01/25/19 12:44 - Home Medications Home Medications: Ambulatory Orders Aspirin [Aspirin EC] 81 mg PO DAILY 09/12/17 Insulin Aspart [Novolog Flexpen] 5 unit SQ TID 09/12/17 Albuterol Sulfate Inhaler - [Ventolin HFA Inhaler -] 1 - 2 inh PO Q4H 09/13/17 Docusate Sodium [Colace -] 100 mg PO DAILY 09/13/17 Folic Acid 1 mg PO DAILY 09/13/17 Linaclotide [Linzess] 145 mcg PO DAILY 09/13/17 Umeclidinium Brm/Vilanterol Tr [Anoro Ellipta 62.5-25 Mcg INH] 1 each IH DAILY 09/13/17 Atorvastatin Calcium [Lipitor] 10 mg PO DAILY 01/25/19 Icosapent Ethyl [Vascepa] 2 gm PO BID 01/25/19 Insulin Glargine,Hum.rec.anlog [Basaglar Kwikpen U-100] 20 unit SQ DAILY Ranolazine [Ranexa] 1,000 mg PO BID 01/25/19 Eltrombopag Olamine [Promacta] 100 mg PO 01/28/19 Acetaminophen [Tylenol .Regular Strength -] 650 mg PO Q4H PRN tablet 02/01/19 Apixaban [Eliquis -] 5 mg PO BID #60 tablet 02/01/19 Atorvastatin Ca [Lipitor] 10 mg PO HS tablet 02/01/19 Folic Acid - 1 mg PO DAILY tablet 02/01/19 Furosemide 80 mg PO DAILY #30 tablet 02/01/19 Insulin Sliding Scale [Novolog Vial Sliding Scale -] 1 vial SQ ACHS units 02/01 Meclizine HCl [Antivert -] 25 mg PO DAILY tablet 02/01/19 Metoprolol Succinate [Toprol XL -] 150 mg PO DAILY #30 tab.sr.24h 02/01/19 Polyethylene Glycol 3350 [Miralax 119 gm Btl -] 17 gm PO DAILY bottle 02/01/19 Ranolazine [Ranexa -] 1,000 mg PO BID tab 02/01/19 Sodium Bicarbonate - 650 mg PO BID tablet 02/01/19 Umeclidinium Brm/Vilanterol Tr [Anoro Ellipta 62.5-25 Mcg INH] 1 puff IH DAILY inhaler 02/01/19 Family Disease History - Family Disease History Other Family History: Uncle had a unknown cancer Review of Systems Unable to obtain ROS, reason: confused Physical Exam Vital Signs: Vital Signs Temperature 97.8 F 02/06/19 14:08 Pulse Rate 72 02/06/19 14:08 Respiratory Rate 20 02/06/19 14:08 Blood Pressure 95/52 L 02/06/19 14:08 O2 Sat by Pulse Oximetry (%) 97 02/05/19 22:00 Constitutional: Yes: Moderate Distress HENT: Yes: Atraumatic, Normocephalic Cardiovascular: Yes: Regular Rate and Rhythm, S1, S2. No: Murmur Respiratory: Yes: Accessory Muscle Use, On BiPap, Poor Air Entry Gastrointestinal: Yes: Abdomen, Obese, Distention, Hepatomegaly. No: Tenderness Edema: No Neurological: Yes: Alert, Oriented, Other (somewhat lethargic) Labs: CBC, BMP 02/06/19 07:15 02/06/19 07:15 Imaging - Results Cat Scan: Report Reviewed, Image Reviewed Assessment/Plan 73 yo M h/o HTN, DM, hypercholesterolemia, COPD, chronic hypoxic respiratory failure on home O2, CAD s/p CABG, JARET, CKD, s/p code garcia on 02/06 @ 3:10pm transferred to ICU for AMS with persistent hypotension. Neuro: AMS 2/2 suspected seizure activities vs. CVA vs. hepatic encephalopathy vs. metabolic encephalopathhy - Reported twitchings, unlikely seizure as patient was immediately arousable when called - MRI to r/o CVA when respiratory status permits - Will send serum ammonia - Cont. cefepime for suspected PNA ID: septic shock 2/2 PNA - s/p 1L of NS, to bolus 1 more L of NS in the setting of dCHF - start vasopressin peripherally for now - trend lactate - cont. cefepime per ID Pulm: COPD, chronic hypoxemic respiratory failure on home O2 3L, JARET, - ABG shows mild respiratory alkalosis, low to normal A-a gradient - Cont. with BiPAP for work of breathing GI: fatty liver - trend LFTs - f/u CT a/p - c/w miralax and PPI CV: HFpEF, a-flutter - c/w alliquis - toprol XL BID - amiodarone 200mg BID - lasix PRN Renal: JANETH on CKD - Unknown baseline - Cont to trend BUN/Cr - Avoid nephrotoxic agents FEN - 2L boluses of NS for hypotension - NPO for now Joesph Gonzales PGY3 Visit type - Emergency Visit Emergency Visit: No - New Patient This patient is new to me today: Yes Date on this admission: 02/06/19 - Critical Care Critical Care patient: Yes Total Critical Care Time (in minutes): 35 Critical Care Statement: The care of this patient involved high complexity decision making to prevent further life threatening deterioration of the patient 's condition and/or to evaluate & treat vital organ system(s) failure or risk of failure.
--- NOTE | 2019-02-06 16:04 | RAPID ---
Physical Examination Vital Signs: Vital Signs Temperature 97.8 F 02/06/19 14:08 Pulse Rate 72 02/06/19 14:08 Respiratory Rate 20 02/06/19 14:08 Blood Pressure 95/52 L 02/06/19 14:08 O2 Sat by Pulse Oximetry (%) 97 02/05/19 22:00 Labs: CBC, BMP 02/06/19 07:15 02/06/19 07:15 Rapid Response - Rapid Response Assessment: Rapid response called at 4W. As per nursing patient suddenly became lethargic. Just moments prior to AMS, patient's left arm and face was noted to be shaking. Response team arrived. Patient was found to be lethargic but responsive. Code douglass called. BP 80/30 HR 85 O2 sat 92% General: lethargic, arousable to voice, follows commands Lung: clear to auscultation Heart: RRR, normal S1,S2 Ext: no peripheral edema AMS likelye 2/2 seizure vs CVA vs metabolic encephalopathy Head CT done Lactic acid EKG, ABG IV fluid bolus Transferred to ICU Rest of management per ICU team.
--- NOTE | 2019-02-06 16:48 | PN ---
Progress Note (short form) - Note Progress Note: events noted transferred to ICU after becoming lethargic on the floor just returned from ct scan chest/abd/ and head head ct no acute event ct scan abd/pelvis and chest pending he is alert and following commands back on bipap Vital Signs Period Temp Pulse Resp BP Sys/Renteria Pulse Ox Last 24 Hr 97.2 F-98.3 F 70-80 20-22 94-103/52-66 97-100 cor-rrr lungs decreased bs at bases ext no edema reddy clear urine CBC, BMP 02/06/19 07:15 02/06/19 07:15 Microbiology 02/04/19 16:00 Urine - Urine Reddy Urine Culture - Final NO GROWTH OBTAINED 02/04/19 01:00 Blood - Peripheral Venous Blood Culture - Preliminary NO GROWTH OBTAINED AFTER 48 HOURS, INCUBATION TO CONTINUE FOR 3 DAYS. 02/04/19 01:00 Blood - Peripheral Venous Blood Culture - Preliminary NO GROWTH OBTAINED AFTER 48 HOURS, INCUBATION TO CONTINUE FOR 3 DAYS. 02/02/19 16:00 Sputum - Expectorated Gram Stain - Final 02/02/19 16:00 Sputum - Expectorated Sputum Culture - Final NORMAL RESPIRATORY HARLAN 02/04/19 16:00 Urine For Antigen Detection Legionella Antigen - Final 02/04/19 16:00 Urine For Antigen Detection Streptococcus pneumoniae Antigen (M - Final 02/03/19 20:20 Urine - Urine Reddy Urine Culture - Final NO GROWTH OBTAINED a/p fevers resolved cannot r/o pneumonia in the setting of recent rib fracture and recent hospital admission chf copd ckd abnl lfts f/u imaging studies continue cefepime adjusted for ckd Problem List - Problems (1) Fever Code(s): R50.9 - FEVER, UNSPECIFIED (2) Pneumonia Code(s): J18.9 - PNEUMONIA, UNSPECIFIED ORGANISM (3) Rib fractures Code(s): S22.39XA - FRACTURE OF ONE RIB, UNSP SIDE, INIT FOR CLOS FX (4) Acute on chronic diastolic (congestive) heart failure Code(s): I50.33 - ACUTE ON CHRONIC DIASTOLIC (CONGESTIVE) HEART FAILURE (5) COPD (chronic obstructive pulmonary disease) Code(s): J44.9 - CHRONIC OBSTRUCTIVE PULMONARY DISEASE, UNSPECIFIED (6) CKD (chronic kidney disease) Code(s): N18.9 - CHRONIC KIDNEY DISEASE, UNSPECIFIED
[2019-02-06] MEDS: VASOPRESSIN 50 UNITS in SODIUM CHLORIDE 97.5 ML IVPB SCH (18:34)
[2019-02-06 18:47] LABS: BASO % 0.2 % (0-2.0); EOS % 0.3 % (0-4.5); HEMOGLOBIN 8.6 GM/dL (11.7-16.9); LYMPH % 5.5 % (8-40); MCH 30.8 pg (25.7-33.7); MEAN CELL VOLUME 96.3 fl (80-96); MEAN PLT VOLUME 11.3 fl (7.5-11.1); MONO % 8.6 % (3.8-10.2); NEUT % 85.4 % (42.8-82.8); PLATELET COUNT 175 K/MM3 (134-434); RDW 28.9 % (11.9-15.9); WHITE BLOOD COUNT 20.1 K/mm3 (4.0-10.0)
[2019-02-06 19:27] LABS: ALLENS TEST NEGATIVE; ARTERIAL BLD GAS O2 SATURATION 97.8 % (95-98); ARTERIAL BLOOD GAS BASE EXCESS -0.6 meq/l (-2-2); ARTERIAL BLOOD GAS PCO2 39.4 mmHg (35-45); ARTERIAL BLOOD GAS PO2 115 mmHg (80-105); ARTERIAL BLOOD GAS pH 7.39 (7.35-7.45)
[2019-02-06 19:43] LABS: ANISOCYTOSIS 3+; MACROCYTOSIS 3+
[2019-02-06 19:44] LABS: PLATELET ESTIMATE ADEQUATE; ROULEAU 2+
[2019-02-06 19:55] LABS: INR 3.92 (0.83-1.09); PROTHROMBIN TIME (PATIENT) 46.9 SEC (9.7-13.0)
[2019-02-06 19:58] LABS: ACTIVATED PTT 31.8 SECONDS (25.2-36.5)
[2019-02-06 21:35] LABS: ALBUMIN 3.2 g/dl (3.4-5.0); ALK PHOS 79 U/L (45-117); ANION GAP 24 MMOL/L (8-16); BILIRUBIN,TOTAL 1.8 mg/dL (0.2-1); BLOOD UREA NITROGEN 58 mg/dL (7-18); CALCIUM 8.5 mg/dL (8.5-10.1); CHLORIDE 97 mmol/L (98-107); CO2 10 mmol/L (21-32); CREATININE 3.7 mg/dL (0.55-1.3); GLUCOSE,RANDOM 146 mg/dL (74-106); MAGNESIUM 0.9 mg/dL (1.8-2.4); PHOSPHOROUS 5.4 mg/dL (2.5-4.9); SGOT/AST 518 U/L (15-37); SGPT/ALT 633 U/L (13-61); SODIUM 131 mmol/L (136-145); TOT PROT 7.6 g/dl (6.4-8.2)
[2019-02-06] MEDS ORDERED: INSULIN REGULAR HUMAN 100 UNITS/ML *VIAL IVPUSH ONE (22:51)
[2019-02-06] MEDS ORDERED: CALCIUM GLUCONATE 10% - 1,000 MG/10 ML VIAL IVPUSH ONE (22:51)
[2019-02-06] MEDS ORDERED: ALBUTEROL SO4 0.083% IH SOL 2.5 MG/3 ML VIAL.NEB. NEB ONE ×2 (22:52→23:23)
[2019-02-06] MEDS ORDERED: DEXTROSE 50%-WATER - 25 GM/50 ML VIAL IVPUSH ONE (22:52)
[2019-02-06] MEDS ORDERED: SODIUM POLYSTYRENE SULFONATE 15 GM/60 ML BOTTLE PO ONE (22:53)
[2019-02-06] MEDS ORDERED: MAGNESIUM SULF 50% (8.12 MEQ/2 ML-1 GM VIAL) IVPB ONE (22:54)
[2019-02-06] MEDS ORDERED: VANCOMYCIN 1 GM in D5W (PRE-DOCKED) 1,000 MG/250 ML IVPB ONE (22:54)
[2019-02-06] MEDS ORDERED: PIPERACILLIN/TAZOB 2.25 GM 2.25 GM in DEXTROSE 5%-WATER - 50 ML IVPB ONE (22:56)
[2019-02-06] MEDS ORDERED: VANCOMYCIN 1,000 MG in DEXTROSE 5%-WATER - 250 ML IVPB ONE (23:15)
[2019-02-06] MEDS ORDERED: DEXTROSE 5%-WATER - 50 ML IVPB ONE (23:38)
[2019-02-06] MEDS ORDERED: PIPERACILLIN/TAZOBACTAM 2.25 GM VIAL IVPB ONE (23:38)
[2019-02-06] MEDS: LIDOCAINE PATCH REMOVAL MC SCH (23:43)
[2019-02-06] MEDS ORDERED: DEXTROSE 50%-WATER 25 GM/50 ML DISP.SYRIN ONE (23:45)
[2019-02-07] MEDS ORDERED: VANCOMYCIN 1 GM PREMIX - 1 GM/200 ML BAG IVPB ONE (00:15)
[2019-02-07 01:07] LABS: POTASSIUM 5.1 mmol/L (3.5-5.1)
--- NOTE | 2019-02-07 01:10 | PN ---
Repeat PE for Septic Shock - Vital Signs Vital Signs: Vital Signs Temperature 97.8 F 02/06/19 14:08 Pulse Rate 72 02/07/19 00:00 Respiratory Rate 20 02/07/19 00:00 Blood Pressure 92/78 02/07/19 00:00 O2 Sat by Pulse Oximetry (%) 100 02/06/19 21:30 I have reviewed the most recent vital signs: Yes - PE CV for Spetic Shock: Other (irregular) Lungs: Crackles Vascular: Left Radial: 2+, Right Radial: 2+, Left Doralis Pedis: 2+, Right Dorsalis Pedis: 2+ Capillary Refill: <3 seconds Skin exam: Normal Color - Impression Impression: No fluid bolus indicated, pt not hypovolemic
[2019-02-07] MEDS ORDERED: MORPHINE SULFATE 2 MG/ML VIAL IVPUSH ONE (01:26)
--- NOTE | 2019-02-07 01:38 | PN ---
Progress Note (short form) - Note Progress Note: -severe sepsis vs septic shock; -was not given 30ml/kg in first 3hrs. -repeat lactic acid; if remain elevated and patient hypotensive; will give fluid bolus; with low threshold to intubate -for now on vasopressin; decision was made to hold off on CL due to INR > 4 -leukocytosis ; add vancomycin x1; -f/u imaging for sepsis source; PNA ;although may have secondary source -monitor INR levels for now; get fibringen level to check if clot formation capable due to liver failure, no need for FFP -troponin trend ; likely demand ischemia -hyperkalemia; given cocktail; monitor levels -d/c amniodarone due to liver enzymes ; currently rate controlled HR 70s; continue eliquis continue close monitoring
[2019-02-07] MEDS ORDERED: METOPROLOL TARTRATE 5 MG/5 ML VIAL IVPUSH PRN (01:41)
[2019-02-07] MEDS ORDERED: morphine SULFATE 4 MG/ML VIAL ONE (02:12)
[2019-02-07] MEDS ORDERED: morphine SULFATE 4 MG/ML VIAL IVPUSH ONE (02:15)
[2019-02-07 04:14] LABS: HEP.C VIRUS AB 0.2 s/co ratio (0.0-0.9)
[2019-02-07] MEDS: INSULIN SLIDING SCALE (NOVOLOG) 1 VIAL SQ SCH ×4 (06:18→21:24)
[2019-02-07] MEDS: INSULIN (LEVEMIR) 100 UNITS/ML UNITS SQ SCH (06:19)
[2019-02-07 06:28] LABS: BASO % 0.3 % (0-2.0); EOS % 0.2 % (0-4.5); HEMATOCRIT 26.5 % (35.4-49); HEMOGLOBIN 8.6 GM/dL (11.7-16.9); LYMPH % 5.6 % (8-40); MCH 30.9 pg (25.7-33.7); MCHC 32.5 g/dl (32.0-35.9); MEAN CELL VOLUME 95.2 fl (80-96); MEAN PLT VOLUME 11.2 fl (7.5-11.1); MONO % 8.6 % (3.8-10.2); NEUT % 85.3 % (42.8-82.8); PLATELET COUNT 175 K/MM3 (134-434); RBC 2.78 M/mm3 (4.00-5.60); RDW 29.6 % (11.9-15.9); WHITE BLOOD COUNT 23.7 K/mm3 (4.0-10.0)
[2019-02-07 06:56] LABS: INR 3.75 (0.83-1.09); PROTHROMBIN TIME (PATIENT) 44.8 SEC (9.7-13.0)
[2019-02-07 06:57] LABS: ACTIVATED PTT 31.2 SECONDS (25.2-36.5)
[2019-02-07 06:59] LABS: BLOOD UREA NITROGEN 99 mg/dL (7-18); CHLORIDE 96 mmol/L (98-107); CO2 26 mmol/L (21-32); CREATININE 3.9 mg/dL (0.55-1.3); GLUCOSE,RANDOM 138 mg/dL (74-106); POTASSIUM 4.7 mmol/L (3.5-5.1); SODIUM 132 mmol/L (136-145)
[2019-02-07 07:00] LABS: ALBUMIN 0.5 g/dl (3.4-5.0); ALK PHOS 68 U/L (45-117); ANION GAP 10 MMOL/L (8-16); BILIRUBIN,TOTAL 1.8 mg/dL (0.2-1); CALCIUM 8.4 mg/dL (8.5-10.1); SGOT/AST 427 U/L (15-37); SGPT/ALT 583 U/L (13-61); TOT PROT 6.8 g/dl (6.4-8.2)
[2019-02-07 07:58] LABS: ALBUMIN 2.9 g/dl (3.4-5.0); BILIRUBIN,TOTAL 1.7 mg/dL (0.2-1); MAGNESIUM 2.6 mg/dL (1.8-2.4); TOT PROT 7.1 g/dl (6.4-8.2)
[2019-02-07] MEDS ORDERED: CEFEPIME HCL 1 GM VIAL (RESTRICTED TO ID) ONE (09:51)
[2019-02-07] MEDS ORDERED: RANOLAZINE E.R. 500 MG TABLET (FP) ONE ×2 (09:51→20:27)
[2019-02-07] MEDS ORDERED: DEXTROSE 5%-WATER 100 ML IVPB ONE (09:51)
[2019-02-07] MEDS: UMECLIDINIUM/VILANTEROL (ANORO) 62.5/25 MCG INHALER IH SCH (09:55)
[2019-02-07] MEDS: FOLIC ACID 1 MG TABLET (FP) PO SCH (09:55)
[2019-02-07] MEDS: LIDOCAINE 5% TOPICAL PATCH TP SCH (09:55)
[2019-02-07] MEDS: OMEGA-3 ACID ETHYL ESTERS (FATTY-ACIDS) 1 GM CAPSULE (FP) PO SCH ×2 (09:55→21:24)
[2019-02-07] MEDS: RANOLAZINE E.R. 1,000 MG TABLET (FP) PO SCH ×2 (09:55→21:25)
[2019-02-07] MEDS: POLYETHYLENE GLYCOL 3350 119 GM BTL PO SCH (09:56)
--- NOTE | 2019-02-07 09:56 | PN ---
Progress Note, Physician History of Present Illness: events of last 24 hrs noted - Current Medication List Current Medications: Active Medications Folic Acid (Folic Acid -) 1 mg PO DAILY [facility] Last Admin: 02/06/19 09:51 Dose: 1 mg Cefepime HCl 1 gm/ Dextrose 100 mls @ 200 mls/hr IVPB DAILY [facility]; Protocol Vasopressin 50 units/ Sodium (Chloride) 100 mls @ 4 mls/hr IVPB ASDIR [facility]; Protocol Last Titration: 02/07/19 05:39 Dose: 6 units/hr, 12 mls/hr Insulin Aspart (Novolog Vial Sliding Scale -) 1 vial SQ ACHS [facility]; Protocol Last Admin: 02/07/19 06:18 Dose: Not Given Insulin Detemir (Levemir Vial) 20 units SQ AM [facility] Last Admin: 02/07/19 06:19 Dose: Not Given Ipratropium [place] (Atrovent 0.02% Nebulizer -) 1 amp NEB Q6H PRN PRN Reason: Dyspnea Stop: 02/10/19 18:09 Last Admin: 02/05/19 22:33 Dose: 1 amp Lidocaine (Lidoderm Patch -) 1 patch TP DAILY [facility] Last Admin: 02/06/19 09:50 Dose: 1 patch Metoprolol Succinate (Toprol Xl -) 100 mg PO BID [facility] Metoprolol Tartrate (Lopressor Injection -) 5 mg IVPUSH Q4H PRN PRN Reason: HYPERTENSION Miscellaneous (Lidoderm Patch Removal) 1 each MC DAILY@2200 [facility] Last Admin: 02/06/19 23:43 Dose: 1 each Non-Formulary Medication (Linaclotide [Linzess]) 145 mcg PO DAILY [facility] [id number] Ethyl Esters (Lovaza -) 2 gm PO BID [facility] Last Admin: 02/06/19 23:43 Dose: Not Given Polyethylene Glycol (Miralax (For Daily Use) -) 17 gm PO DAILY [facility] Last Admin: 02/06/19 09:52 Dose: Not Given Ranolazine (Ranexa -) 1,000 mg PO BID [facility] Last Admin: 02/06/19 23:42 Dose: Not Given Umeclidinium/Vilanterol (Anoro Ellipta 62.5-25 Mcg Inh) 1 puff IH DAILY [facility] Last Admin: 02/06/19 09:53 Dose: 1 puff - Objective Vital Signs: Vital Signs Temperature 97.8 F 02/07/19 05:11 Pulse Rate 66 02/07/19 08:00 Respiratory Rate 18 02/07/19 08:00 Blood Pressure 107/37 L 02/07/19 08:00 O2 Sat by Pulse Oximetry (%) 100 02/07/19 00:05 Eyes: Yes: WNL, Conjunctiva Clear, EOM Intact HENT: Yes: WNL, Atraumatic, Normocephalic Neck: Yes: WNL, Supple, Trachea Midline Cardiovascular: Yes: Pulse Irregular Respiratory: Yes: Diminished Gastrointestinal: Yes: WNL, Normal Bowel Sounds Genitourinary: Yes: WNL Musculoskeletal: Yes: WNL Extremities: Yes: WNL Edema: No Integumentary: Yes: WNL Neurological: Yes: WNL, Alert, Oriented ...Motor Strength: WNL Psychiatric: Yes: WNL Labs: CBC, BMP 02/07/19 05:30 02/07/19 05:30 INR, PTT INR 3.75 (0.83-1.09) H 02/07/19 05:30 Assessment/Plan septic shock lethargy transfered to icu 1. Fall with chest wall trauma, no reported syncope 2. CAD post CABG/PCI/GERALD demand ischemic injury angina pectoris 3. Acute on chronic class I-II NYHA classification LV failure related to diastolic/systolic LV dysfunction, clinical decompensation 4. Persistent atrial flutter with rapid ventricular response [id number] score of 5, ATP pacing noted inappropriate 5. Post prophylactic ICD implant 6. HTN 7. DM 8. Hypercholesterolemia 9. COPD 10. CKD 11. Anemia PLAN: ICU monitoring pressors abx id and critical care team input appreciated refused ERIKA guided synchronized cardioversion of the above noted arrhythmia/ atrial flutter cc time spent 35 min
[2019-02-07] MEDS ORDERED: CEFEPIME 1 GM in DEXTROSE 5%-WATER 100 ML IVPB SCH (10:00)
[2019-02-07 11:05] LABS: ANISOCYTOSIS 2+; MACROCYTOSIS 1+; OVALOCYTE 1+; PLATELET ESTIMATE NORMAL; TEAR DROP CELLS 1+
--- NOTE | 2019-02-07 12:03 | PN ---
Progress Note, Physician Chief Complaint: patient seen and examined and transferred to floor bc of lethargy and left arm twitching s/p prbc on pressors - Current Medication List Current Medications: Active Medications Folic Acid (Folic Acid -) 1 mg PO DAILY [facility] Last Admin: 02/07/19 09:55 Dose: 1 mg Cefepime HCl 1 gm/ Dextrose 100 mls @ 200 mls/hr IVPB DAILY [facility]; Protocol Last Admin: 02/07/19 09:56 Dose: 200 mls/hr Vasopressin 50 units/ Sodium (Chloride) 100 mls @ 4 mls/hr IVPB ASDIR [facility]; Protocol Last Titration: 02/07/19 05:39 Dose: 6 units/hr, 12 mls/hr Insulin Aspart (Novolog Vial Sliding Scale -) 1 vial SQ ACHS [facility]; Protocol Last Admin: 02/07/19 11:55 Dose: Not Given Insulin Detemir (Levemir Vial) 20 units SQ AM [facility] Last Admin: 02/07/19 06:19 Dose: Not Given Ipratropium [place] (Atrovent 0.02% Nebulizer -) 1 amp NEB Q6H PRN PRN Reason: Dyspnea Stop: 02/10/19 18:09 Last Admin: 02/05/19 22:33 Dose: 1 amp Lidocaine (Lidoderm Patch -) 1 patch TP DAILY [facility] Last Admin: 02/07/19 09:55 Dose: 1 patch Metoprolol Succinate (Toprol Xl -) 100 mg PO BID [facility] Last Admin: 02/07/19 09:55 Dose: Not Given Metoprolol Tartrate (Lopressor Injection -) 5 mg IVPUSH Q4H PRN PRN Reason: HYPERTENSION Miscellaneous (Lidoderm Patch Removal) 1 each MC DAILY@2200 [facility] Last Admin: 02/06/19 23:43 Dose: 1 each Non-Formulary Medication (Linaclotide [Linzess]) 145 mcg PO DAILY [facility] [id number] Ethyl Esters (Lovaza -) 2 gm PO BID [facility] Last Admin: 02/07/19 09:55 Dose: 2 gm Polyethylene Glycol (Miralax (For Daily Use) -) 17 gm PO DAILY [facility] Last Admin: 02/07/19 09:56 Dose: Not Given Ranolazine (Ranexa -) 1,000 mg PO BID [facility] Last Admin: 04/25/19 09:55 Dose: 1,000 mg Umeclidinium/Vilanterol (Anoro Ellipta 62.5-25 Mcg Inh) 1 puff IH DAILY [facility] Last Admin: 02/07/19 09:55 Dose: Not Given - Objective Vital Signs: Vital Signs Temperature 97.6 F 02/07/19 10:00 Pulse Rate 69 02/07/19 10:00 Respiratory Rate 12 02/07/19 10:00 Blood Pressure 100/82 02/07/19 10:00 O2 Sat by Pulse Oximetry (%) 100 02/07/19 10:43 Constitutional: Yes: Calm Cardiovascular: Yes: Regular Rate and Rhythm, S1, S2 Respiratory: Yes: On BiPap, Other Gastrointestinal: Yes: Normal Bowel Sounds, Soft Neurological: Yes: Alert Labs: CBC, BMP 02/07/19 05:30 02/07/19 05:30 INR, PTT INR 3.75 (0.83-1.09) H 02/07/19 05:30 Problem List - Problems (1) Fever Assessment/Plan: ID on board iv abx- cefepime/vancomycin Microbiology 02/04/19 16:00 Urine For Antigen Detection Legionella Antigen - Final 02/04/19 16:00 Urine For Antigen Detection Streptococcus pneumoniae Antigen (M - Final 02/04/19 16:00 Urine - Urine Hinds Urine Culture - Final NO GROWTH OBTAINED 02/03/19 20:20 Urine - Urine Hinds Urine Culture - Final NO GROWTH OBTAINED 02/02/19 16:00 Sputum - Expectorated Gram Stain - Final 02/02/19 16:00 Sputum - Expectorated Sputum Culture - Final NORMAL RESPIRATORY HRALAN 02/04/19 01:00 Blood - Peripheral Venous Blood Culture - Preliminary NO GROWTH OBTAINED AFTER 72 HOURS, INCUBATION TO CONTINUE FOR 2 DAYS. 02/04/19 01:00 Blood - Peripheral Venous Blood Culture - Preliminary NO GROWTH OBTAINED AFTER 72 HOURS, INCUBATION TO CONTINUE FOR 2 DAYS. lactic acid trending down Code(s): R50.9 - FEVER, UNSPECIFIED (2) Rib fractures Assessment/Plan: pain control Code(s): S22.39XA - FRACTURE OF ONE RIB, UNSP SIDE, INIT FOR CLOS FX (3) Atrial flutter Assessment/Plan: amiodarone stopped bc of increase lft refused synchronized ERIKA cardioversion toprol Code(s): I48.92 - UNSPECIFIED ATRIAL FLUTTER (4) CKD (chronic kidney disease) Code(s): N18.9 - CHRONIC KIDNEY DISEASE, UNSPECIFIED (5) Diabetes Assessment/Plan: iinsulin bgm Code(s): E11.9 - TYPE 2 DIABETES MELLITUS WITHOUT COMPLICATIONS Qualifiers: Diabetes mellitus type: type 2 (6) COPD (chronic obstructive pulmonary disease) Assessment/Plan: bipap oxygen Code(s): J44.9 - CHRONIC OBSTRUCTIVE PULMONARY DISEASE, UNSPECIFIED Assessment/Plan icu monitirng neurology consult
--- NOTE | 2019-02-07 12:04 | PN ---
Teaching Attending Note Name of Resident: Adrián Shelley ATTENDING PHYSICIAN STATEMENT I saw and evaluated the patient. I reviewed the resident's note and discussed the case with the resident. I agree with the resident's findings and plan as documented. SUBJECTIVE: Patient seen and examined in the ICU. Awake and responsive on NIPPV. 6 units of Vasopressin for hemodynamic support. More awake and interactive today. CXR: bilateral infiltrates Intake & Output 02/04/19 02/05/19 02/06/19 02/07/19 23:59 23:59 23:59 23:59 Intake Total 500 100 350 586 Output Total 1200 750 300 350 Balance -700 -650 50 236 Weight 223 lb 9.6 oz 223 lb 9 oz Last Vital Signs Temp Pulse Resp BP Pulse Ox 97.6 F 69 12 100/82 100 02/07/19 10:00 02/07/19 10:00 02/07/19 10:00 02/07/19 10:00 02/07/19 10:43 Active Medications Folic Acid (Folic Acid -) 1 mg PO DAILY [facility] Last Admin: 02/07/19 09:55 Dose: 1 mg Cefepime HCl 1 gm/ Dextrose 100 mls @ 200 mls/hr IVPB DAILY [facility]; Protocol Last Admin: 02/07/19 09:56 Dose: 200 mls/hr Vasopressin 50 units/ Sodium (Chloride) 100 mls @ 4 mls/hr IVPB [facility]; Protocol Last Titration: 02/07/19 05:39 Dose: 6 units/hr, 12 mls/hr Insulin Aspart (Novolog Vial Sliding Scale -) 1 vial SQ ACHS [facility]; Protocol Last Admin: 02/07/19 11:55 Dose: Not Given Insulin Detemir (Levemir Vial) 20 units SQ AM [facility] Last Admin: 02/07/19 06:19 Dose: Not Given Ipratropium [place] (Atrovent 0.02% Nebulizer -) 1 amp NEB Q6H PRN PRN Reason: Dyspnea Stop: 02/10/19 18:09 Last Admin: 02/05/19 22:33 Dose: 1 amp Lidocaine (Lidoderm Patch -) 1 patch TP DAILY [facility] Last Admin: 02/07/19 09:55 Dose: 1 patch Metoprolol Succinate (Toprol Xl -) 100 mg PO BID [facility] Last Admin: 02/07/19 09:55 Dose: Not Given Metoprolol Tartrate (Lopressor Injection -) 5 mg IVPUSH Q4H PRN PRN Reason: HYPERTENSION Miscellaneous (Lidoderm Patch Removal) 1 each MC DAILY@2200 [facility] Last Admin: 02/06/19 23:43 Dose: 1 each Non-Formulary Medication (Linaclotide [Linzess]) 145 mcg PO DAILY [facility] [id number] Ethyl Esters (Lovaza -) 2 gm PO BID [facility] Last Admin: 02/07/19 09:55 Dose: 2 gm Polyethylene Glycol (Miralax (For Daily Use) -) 17 gm PO DAILY [facility] Last Admin: 02/07/19 09:56 Dose: Not Given Ranolazine (Ranexa -) 1,000 mg PO BID [facility] Last Admin: 02/07/19 09:55 Dose: 1,000 mg Umeclidinium/Vilanterol (Anoro Ellipta 62.5-25 Mcg Inh) 1 puff IH DAILY [facility] Last Admin: 02/07/19 09:55 Dose: Not Given Constitutional: Yes: Awake and responsive on NIPPV HENT: Yes: Atraumatic, Normocephalic Cardiovascular: Yes: Regular Rate and Rhythm, S1, S2. No: Murmur Respiratory: Yes: On NIPPV, bilateral rhonchi Gastrointestinal: Yes: Abdomen, Obese, Distention, Hepatomegaly. No: Tenderness Edema: No Neurological: Yes: Awake and alert, Non-focal Labs: Laboratory Results - last 24 hr 02/05/19 02/06/19 02/06/19 16:00 11:30 15:13 WBC RBC Hgb Hct MCV MCH MCHC RDW Plt Count MPV Absolute Neuts (auto) Neutrophils % Neutrophils % (Manual) Band Neutrophils % Lymphocytes % Lymphocytes % (Manual) Monocytes % Monocytes % (Manual) Eosinophils % Eosinophils % (Manual) Basophils % Basophils % (Manual) Myelocytes % (Man) Promyelocytes % (Man) Blast Cells % (Manual) Nucleated RBC % Metamyelocytes Hypochromia Platelet Estimate Platelet Comment Poikilocytosis Anisocytosis Microcytosis Macrocytosis Tear Drop Cells Ovalocytes Rouleaux PT with INR INR PTT (Actin FS) Anticoagulation Therapy Puncture Site ABG pH ABG pCO2 at Pt Temp ABG pO2 at Pt Temp ABG HCO3 ABG O2 Sat (Measured) ABG O2 Content ABG Base Excess Paxton Test O2 Delivery Device Oxygen Flow Rate Vent Mode Vent Rate Mechanical Rate Pressure Support Vent Sodium Potassium Chloride Carbon Dioxide Anion Gap BUN Creatinine Creat Clearance w eGFR POC Glucometer 177 Random Glucose Lactic Acid Calcium Phosphorus Magnesium Ferritin Total Bilirubin Direct Bilirubin GGT AST ALT Alkaline Phosphatase Ammonia Creatine Kinase Troponin I Total Protein Albumin Lipase TSH Hepatitis A IgM Ab Negative Hep Bs Antigen Negative Hep B Core IgM Ab Negative Hepatitis C Antibody 0.2 Blood Type A POSITIVE Antibody Screen Positive Antibody Identification Lc Crossmatch See Detail 02/06/19 02/06/19 02/06/19 15:25 16:50 16:50 WBC RBC Hgb Hct MCV MCH MCHC RDW Plt Count MPV Absolute Neuts (auto) Neutrophils % Neutrophils % (Manual) Band Neutrophils % Lymphocytes % Lymphocytes % (Manual) Monocytes % Monocytes % (Manual) Eosinophils % Eosinophils % (Manual) Basophils % Basophils % (Manual) Myelocytes % (Man) Promyelocytes % (Man) Blast Cells % (Manual) Nucleated RBC % Metamyelocytes Hypochromia Platelet Estimate Platelet Comment Poikilocytosis Anisocytosis Microcytosis Macrocytosis Tear Drop Cells Ovalocytes Rouleaux PT with INR INR PTT (Actin FS) Anticoagulation Therapy Puncture Site Right radial ABG pH 7.44 ABG pCO2 at Pt Temp 33.9 L ABG pO2 at Pt Temp 89.5 ABG HCO3 22.8 ABG O2 Sat (Measured) 97.1 ABG O2 Content 7.1 L* ABG Base Excess -0.7 Paxton Test Positive O2 Delivery Device Oxygen Flow Rate Nasal Vent Mode Vent Rate Mechanical Rate Pressure Support Vent Sodium Potassium Chloride Carbon Dioxide Anion Gap BUN Creatinine Creat Clearance w eGFR POC Glucometer Random Glucose Lactic Acid 2.5 H* Calcium Phosphorus Magnesium Ferritin Total Bilirubin Direct Bilirubin GGT AST ALT Alkaline Phosphatase Ammonia Creatine Kinase 49 Troponin I 0.69 H* Total Protein Albumin Lipase TSH Hepatitis A IgM Ab Hep Bs Antigen Hep B Core IgM Ab Hepatitis C Antibody Blood Type Antibody Screen Antibody Identification Crossmatch 02/06/19 02/06/19 02/06/19 17:19 18:20 18:20 WBC 20.1 H RBC 2.80 L Hgb 8.6 L Hct 27.0 L MCV 96.3 H MCH 30.8 MCHC 32.0 RDW 28.9 H Plt Count 175 MPV 11.3 H Absolute Neuts (auto) 17.2 H Neutrophils % 85.4 H Neutrophils % (Manual) 82.0 Band Neutrophils % 4.0 Lymphocytes % 5.5 L D Lymphocytes % (Manual) 6.0 L D Monocytes % 8.6 Monocytes % (Manual) 8 Eosinophils % 0.3 Eosinophils % (Manual) Basophils % 0.2 Basophils % (Manual) Myelocytes % (Man) Promyelocytes % (Man) Blast Cells % (Manual) Nucleated RBC % 1 H Metamyelocytes Hypochromia 1+ Platelet Estimate Adequate Platelet Comment Poikilocytosis Anisocytosis 3+ Microcytosis Macrocytosis 3+ Tear Drop Cells Ovalocytes Rouleaux 2+ PT with INR 46.90 H INR 3.92 H PTT (Actin FS) 31.8 Anticoagulation Therapy Puncture Site ABG pH ABG pCO2 at Pt Temp ABG pO2 at Pt Temp ABG HCO3 ABG O2 Sat (Measured) ABG O2 Content ABG Base Excess Paxton Test O2 Delivery Device Oxygen Flow Rate Vent Mode Vent Rate Mechanical Rate Pressure Support Vent Sodium Potassium Chloride Carbon Dioxide Anion Gap BUN Creatinine Creat Clearance w eGFR POC Glucometer 163 Random Glucose Lactic Acid Calcium Phosphorus Magnesium Ferritin Total Bilirubin Direct Bilirubin GGT AST ALT Alkaline Phosphatase Ammonia Creatine Kinase Troponin I Total Protein Albumin Lipase TSH Hepatitis A IgM Ab Hep Bs Antigen Hep B Core IgM Ab Hepatitis C Antibody Blood Type Antibody Screen Antibody Identification Crossmatch 02/06/19 02/06/19 02/06/19 18:20 18:20 19:20 WBC RBC Hgb Hct MCV MCH MCHC RDW Plt Count MPV Absolute Neuts (auto) Neutrophils % Neutrophils % (Manual) Band Neutrophils % Lymphocytes % Lymphocytes % (Manual) Monocytes % Monocytes % (Manual) Eosinophils % Eosinophils % (Manual) Basophils % Basophils % (Manual) Myelocytes % (Man) Promyelocytes % (Man) Blast Cells % (Manual) Nucleated RBC % Metamyelocytes Hypochromia Platelet Estimate Platelet Comment Poikilocytosis Anisocytosis Microcytosis Macrocytosis Tear Drop Cells Ovalocytes Rouleaux PT with INR INR PTT (Actin FS) Anticoagulation Therapy No Result Required. Puncture Site Right brachial ABG pH 7.39 ABG pCO2 at Pt Temp 39.4 ABG pO2 at Pt Temp 115 H ABG HCO3 23.6 ABG O2 Sat (Measured) 97.8 ABG O2 Content No Result Required. ABG Base Excess -0.6 Paxton Test Negative O2 Delivery Device No Result Required. Oxygen Flow Rate No Result Required. Vent Mode No Result Required. Vent Rate No Result Required. Mechanical Rate No Result Required. Pressure Support Vent No Result Required. Sodium 131 L Potassium 6.0 H Chloride 97 L Carbon Dioxide 10 L Anion Gap 24 H BUN 58 H Creatinine 3.7 H Creat Clearance w eGFR 16.28 POC Glucometer Random Glucose 146 H Lactic Acid Calcium 8.5 Phosphorus 5.4 H Magnesium 0.9 L Ferritin Total Bilirubin 1.8 H Direct Bilirubin GGT AST 518 H ALT 633 H Alkaline Phosphatase 79 Ammonia 47.10 H Creatine Kinase Troponin I Total Protein 7.6 Albumin 3.2 L Lipase TSH 1.39 D Hepatitis A IgM Ab Hep Bs Antigen Hep B Core IgM Ab Hepatitis C Antibody Blood Type Antibody Screen Antibody Identification Crossmatch 02/06/19 02/07/19 02/07/19 22:58 00:05 00:05 WBC RBC Hgb Hct MCV MCH MCHC RDW Plt Count MPV Absolute Neuts (auto) Neutrophils % Neutrophils % (Manual) Band Neutrophils % Lymphocytes % Lymphocytes % (Manual) Monocytes % Monocytes % (Manual) Eosinophils % Eosinophils % (Manual) Basophils % Basophils % (Manual) Myelocytes % (Man) Promyelocytes % (Man) Blast Cells % (Manual) Nucleated RBC % Metamyelocytes Hypochromia Platelet Estimate Platelet Comment Poikilocytosis Anisocytosis Microcytosis Macrocytosis Tear Drop Cells Ovalocytes Rouleaux PT with INR INR PTT (Actin FS) Anticoagulation Therapy Puncture Site ABG pH ABG pCO2 at Pt Temp ABG pO2 at Pt Temp ABG HCO3 ABG O2 Sat (Measured) ABG O2 Content ABG Base Excess Paxton Test O2 Delivery Device Oxygen Flow Rate Vent Mode Vent Rate Mechanical Rate Pressure Support Vent Sodium Potassium 5.1 Chloride Carbon Dioxide Anion Gap BUN Creatinine Creat Clearance w eGFR POC Glucometer 142 Random Glucose Lactic Acid 2.3 H* Calcium Phosphorus Magnesium Ferritin Total Bilirubin Direct Bilirubin GGT AST ALT Alkaline Phosphatase Ammonia Creatine Kinase Troponin I 0.62 H* Total Protein Albumin Lipase TSH Hepatitis A IgM Ab Hep Bs Antigen Hep B Core IgM Ab Hepatitis C Antibody Blood Type Antibody Screen Antibody Identification Crossmatch 02/07/19 02/07/19 02/07/19 05:30 05:30 05:30 WBC 23.7 H RBC 2.78 L Hgb 8.6 L Hct 26.5 L MCV 95.2 MCH 30.9 MCHC 32.5 RDW 29.6 H Plt Count 175 MPV 11.2 H Absolute Neuts (auto) 20.2 H Neutrophils % 85.3 H Neutrophils % (Manual) 69.3 Band Neutrophils % 8.9 Lymphocytes % 5.6 L Lymphocytes % (Manual) 7.9 L D Monocytes % 8.6 Monocytes % (Manual) 10 Eosinophils % 0.2 Eosinophils % (Manual) 0.0 D Basophils % 0.3 Basophils % (Manual) 0.0 Myelocytes % (Man) 2 D Promyelocytes % (Man) 0 Blast Cells % (Manual) 0 Nucleated RBC % 0 Metamyelocytes 0 D Hypochromia 1+ Platelet Estimate Normal Platelet Comment Present Poikilocytosis 2+ Anisocytosis 2+ Microcytosis 1+ Macrocytosis 1+ Tear Drop Cells 1+ Ovalocytes 1+ Rouleaux PT with INR INR PTT (Actin FS) Anticoagulation Therapy Puncture Site ABG pH ABG pCO2 at Pt Temp ABG pO2 at Pt Temp ABG HCO3 ABG O2 Sat (Measured) ABG O2 Content ABG Base Excess Paxton Test O2 Delivery Device Oxygen Flow Rate Vent Mode Vent Rate Mechanical Rate Pressure Support Vent Sodium 132 L Potassium 4.7 Chloride 96 L Carbon Dioxide 26 Anion Gap 10 BUN 99 H Creatinine 3.9 H Creat Clearance w eGFR 15.32 POC Glucometer Random Glucose 138 H Lactic Acid Calcium 8.4 L Phosphorus Magnesium 2.6 H Ferritin 7958.2 H Total Bilirubin 1.8 H 1.7 H Direct Bilirubin 1.0 H GGT 85 AST 427 H 432 H ALT 583 H 593 H Alkaline Phosphatase 68 69 Ammonia Creatine Kinase Troponin I Total Protein 6.8 7.1 Albumin 0.5 L 2.9 L Lipase 267 TSH Hepatitis A IgM Ab Hep Bs Antigen Hep B Core IgM Ab Hepatitis C Antibody Blood Type Antibody Screen Antibody Identification Crossmatch 02/07/19 02/07/19 02/07/19 05:30 05:30 06:18 WBC RBC Hgb Hct MCV MCH MCHC RDW Plt Count MPV Absolute Neuts (auto) Neutrophils % Neutrophils % (Manual) Band Neutrophils % Lymphocytes % Lymphocytes % (Manual) Monocytes % Monocytes % (Manual) Eosinophils % Eosinophils % (Manual) Basophils % Basophils % (Manual) Myelocytes % (Man) Promyelocytes % (Man) Blast Cells % (Manual) Nucleated RBC % Metamyelocytes Hypochromia Platelet Estimate Platelet Comment Poikilocytosis Anisocytosis Microcytosis Macrocytosis Tear Drop Cells Ovalocytes Rouleaux PT with INR 44.80 H INR 3.75 H PTT (Actin FS) 31.2 Anticoagulation Therapy Puncture Site ABG pH ABG pCO2 at Pt Temp ABG pO2 at Pt Temp ABG HCO3 ABG O2 Sat (Measured) ABG O2 Content ABG Base Excess Paxton Test O2 Delivery Device Oxygen Flow Rate Vent Mode Vent Rate Mechanical Rate Pressure Support Vent Sodium Potassium Chloride Carbon Dioxide Anion Gap BUN Creatinine Creat Clearance w eGFR POC Glucometer 131 Random Glucose Lactic Acid 2.9 H* Calcium Phosphorus Magnesium Ferritin Total Bilirubin Direct Bilirubin GGT AST ALT Alkaline Phosphatase Ammonia Creatine Kinase Troponin I Total Protein Albumin Lipase TSH Hepatitis A IgM Ab Hep Bs Antigen Hep B Core IgM Ab Hepatitis C Antibody Blood Type Antibody Screen Antibody Identification Crossmatch 02/07/19 02/07/19 09:25 11:43 WBC RBC Hgb Hct MCV MCH MCHC RDW Plt Count MPV Absolute Neuts (auto) Neutrophils % Neutrophils % (Manual) Band Neutrophils % Lymphocytes % Lymphocytes % (Manual) Monocytes % Monocytes % (Manual) Eosinophils % Eosinophils % (Manual) Basophils % Basophils % (Manual) Myelocytes % (Man) Promyelocytes % (Man) Blast Cells % (Manual) Nucleated RBC % Metamyelocytes Hypochromia Platelet Estimate Platelet Comment Poikilocytosis Anisocytosis Microcytosis Macrocytosis Tear Drop Cells Ovalocytes Rouleaux PT with INR INR PTT (Actin FS) Anticoagulation Therapy Puncture Site ABG pH ABG pCO2 at Pt Temp ABG pO2 at Pt Temp ABG HCO3 ABG O2 Sat (Measured) ABG O2 Content ABG Base Excess Paxton Test O2 Delivery Device Oxygen Flow Rate Vent Mode Vent Rate Mechanical Rate Pressure Support Vent Sodium Potassium Chloride Carbon Dioxide Anion Gap BUN Creatinine Creat Clearance w eGFR POC Glucometer 150 Random Glucose Lactic Acid 1.6 Calcium Phosphorus Magnesium Ferritin Total Bilirubin Direct Bilirubin GGT AST ALT Alkaline Phosphatase Ammonia Creatine Kinase Troponin I Total Protein Albumin Lipase TSH Hepatitis A IgM Ab Hep Bs Antigen Hep B Core IgM Ab Hepatitis C Antibody Blood Type Antibody Screen Antibody Identification Crossmatch Assessment/Plan Septic Shock likely due to PNA R/O early ARDS Coagulopathy -> (?) liver dysfunction / congestion HTN DM Hypercholesterolemia COPD O2 dependent COPD CAD S/P CABG JARET on CPAP CKD Low clinical suspicion of CVA Resolving encephalopathy (?) Seizures Afib / Aflutter ABX per ID NIPPV as needed, can attempt to wean to VM Aspiration precautions FFP and may need better IV access Follow cultures Strict I & O Follow INR BD TX Requires ICU monitoring Dr Teran Critical care time spent in reviewing chart, evaluating patient and formulating plan - 36 minutes.
--- NOTE | 2019-02-07 12:07 | EKG ---
Test Reason : Blood Pressure : / mmHG Vent. Rate : 069 BPM Atrial Rate : 069 BPM P-R Int : 190 ms QRS Dur : 100 ms QT Int : 434 ms P-R-T Axes : 023 064 078 degrees QTc Int : 465 ms NORMAL SINUS RHYTHM NORMAL ECG WHEN COMPARED WITH ECG OF 02-FEB-2019 05:24, SINUS RHYTHM HAS REPLACED ATRIAL FLUTTER VENT. RATE HAS DECREASED BY [address] NO LONGER DEPRESSED IN INFERIOR LEADS NONSPECIFIC T WAVE ABNORMALITY NO LONGER EVIDENT IN INFERIOR LEADS NONSPECIFIC T WAVE ABNORMALITY, IMPROVED IN LATERAL LEADS Confirmed by LALA JERONIMO MD ([id number]) on 02/07/2019 12:07:16 PM Referred By: Cele MCFARLAND Confirmed By:LALA JERONIMO MD
[2019-02-07] MEDS ORDERED: SODIUM CHLORIDE 1,000 ML IV STA (12:39)
--- NOTE | 2019-02-07 12:40 | PN ---
Physical Exam: SUBJECTIVE: Patient seen and examined at bedside. Patient hypotensive overnight requiring vasopressin for pressure support. OBJECTIVE: Vital Signs Period Temp Pulse Resp BP Sys/Renteria Pulse Ox Last 24 Hr 97 F-98.1 F 65-73 12-28 89-130/37-97 98-100 GENERAL: The patient is awake, alert and on NIPPV. He states his breathing is better today. HEAD: Normal with no signs of trauma. NECK: Trachea midline, full range of motion, supple. LUNGS: Breath sounds equal, crackles heard at the bases b/l, no accessory muscle use. HEART: Regular rate and rhythm, S1, S2 without murmur, rub or gallop. ABDOMEN: Soft, nontender, nondistended, normoactive bowel sounds, no guarding, no rebound, no hepatosplenomegaly, no masses. EXTREMITIES: 2+ pulses, warm, well-perfused, no edema. NEUROLOGICAL: Cranial nerves II through X grossly intact. Normal speech, gait not observed. SKIN: Warm, dry, normal turgor, no rashes or lesions noted Laboratory Results - last 24 hr 02/05/19 02/06/19 02/06/19 16:00 11:30 15:13 WBC RBC Hgb Hct MCV MCH MCHC RDW Plt Count MPV Absolute Neuts (auto) Neutrophils % Neutrophils % (Manual) Band Neutrophils % Lymphocytes % Lymphocytes % (Manual) Monocytes % Monocytes % (Manual) Eosinophils % Eosinophils % (Manual) Basophils % Basophils % (Manual) Myelocytes % (Man) Promyelocytes % (Man) Blast Cells % (Manual) Nucleated RBC % Metamyelocytes Hypochromia Platelet Estimate Platelet Comment Poikilocytosis Anisocytosis Microcytosis Macrocytosis Tear Drop Cells Ovalocytes Rouleaux PT with INR INR PTT (Actin FS) Anticoagulation Therapy Puncture Site ABG pH ABG pCO2 at Pt Temp ABG pO2 at Pt Temp ABG HCO3 ABG O2 Sat (Measured) ABG O2 Content ABG Base Excess Paxton Test O2 Delivery Device Oxygen Flow Rate Vent Mode Vent Rate Mechanical Rate Pressure Support Vent Sodium Potassium Chloride Carbon Dioxide Anion Gap BUN Creatinine Creat Clearance w eGFR POC Glucometer 177 Random Glucose Lactic Acid Calcium Phosphorus Magnesium Ferritin Total Bilirubin Direct Bilirubin GGT AST ALT Alkaline Phosphatase Ammonia Creatine Kinase Troponin I Total Protein Albumin Lipase TSH Hepatitis A IgM Ab Negative Hep Bs Antigen Negative Hep B Core IgM Ab Negative Hepatitis C Antibody 0.2 Blood Type A POSITIVE Antibody Screen Positive Antibody Identification Lc Crossmatch See Detail 02/06/19 02/06/19 02/06/19 15:25 16:50 16:50 WBC RBC Hgb Hct MCV MCH MCHC RDW Plt Count MPV Absolute Neuts (auto) Neutrophils % Neutrophils % (Manual) Band Neutrophils % Lymphocytes % Lymphocytes % (Manual) Monocytes % Monocytes % (Manual) Eosinophils % Eosinophils % (Manual) Basophils % Basophils % (Manual) Myelocytes % (Man) Promyelocytes % (Man) Blast Cells % (Manual) Nucleated RBC % Metamyelocytes Hypochromia Platelet Estimate Platelet Comment Poikilocytosis Anisocytosis Microcytosis Macrocytosis Tear Drop Cells Ovalocytes Rouleaux PT with INR INR PTT (Actin FS) Anticoagulation Therapy Puncture Site Right radial ABG pH 7.44 ABG pCO2 at Pt Temp 33.9 L ABG pO2 at Pt Temp 89.5 ABG HCO3 22.8 ABG O2 Sat (Measured) 97.1 ABG O2 Content 7.1 L* ABG Base Excess -0.7 Paxton Test Positive O2 Delivery Device Oxygen Flow Rate Nasal Vent Mode Vent Rate Mechanical Rate Pressure Support Vent Sodium Potassium Chloride Carbon Dioxide Anion Gap BUN Creatinine Creat Clearance w eGFR POC Glucometer Random Glucose Lactic Acid 2.5 H* Calcium Phosphorus Magnesium Ferritin Total Bilirubin Direct Bilirubin GGT AST ALT Alkaline Phosphatase Ammonia Creatine Kinase 49 Troponin I 0.69 H* Total Protein Albumin Lipase TSH Hepatitis A IgM Ab Hep Bs Antigen Hep B Core IgM Ab Hepatitis C Antibody Blood Type Antibody Screen Antibody Identification Crossmatch 02/06/19 02/06/19 02/06/19 17:19 18:20 18:20 WBC 20.1 H RBC 2.80 L Hgb 8.6 L Hct 27.0 L MCV 96.3 H MCH 30.8 MCHC 32.0 RDW 28.9 H Plt Count 175 MPV 11.3 H Absolute Neuts (auto) 17.2 H Neutrophils % 85.4 H Neutrophils % (Manual) 82.0 Band Neutrophils % 4.0 Lymphocytes % 5.5 L D Lymphocytes % (Manual) 6.0 L D Monocytes % 8.6 Monocytes % (Manual) 8 Eosinophils % 0.3 Eosinophils % (Manual) Basophils % 0.2 Basophils % (Manual) Myelocytes % (Man) Promyelocytes % (Man) Blast Cells % (Manual) Nucleated RBC % 1 H Metamyelocytes Hypochromia 1+ Platelet Estimate Adequate Platelet Comment Poikilocytosis Anisocytosis 3+ Microcytosis Macrocytosis 3+ Tear Drop Cells Ovalocytes Rouleaux 2+ PT with INR 46.90 H INR 3.92 H PTT (Actin FS) 31.8 Anticoagulation Therapy Puncture Site ABG pH ABG pCO2 at Pt Temp ABG pO2 at Pt Temp ABG HCO3 ABG O2 Sat (Measured) ABG O2 Content ABG Base Excess Paxton Test O2 Delivery Device Oxygen Flow Rate Vent Mode Vent Rate Mechanical Rate Pressure Support Vent Sodium Potassium Chloride Carbon Dioxide Anion Gap BUN Creatinine Creat Clearance w eGFR POC Glucometer 163 Random Glucose Lactic Acid Calcium Phosphorus Magnesium Ferritin Total Bilirubin Direct Bilirubin GGT AST ALT Alkaline Phosphatase Ammonia Creatine Kinase Troponin I Total Protein Albumin Lipase TSH Hepatitis A IgM Ab Hep Bs Antigen Hep B Core IgM Ab Hepatitis C Antibody Blood Type Antibody Screen Antibody Identification Crossmatch 02/06/19 02/06/19 02/06/19 18:20 18:20 19:20 WBC RBC Hgb Hct MCV MCH MCHC RDW Plt Count MPV Absolute Neuts (auto) Neutrophils % Neutrophils % (Manual) Band Neutrophils % Lymphocytes % Lymphocytes % (Manual) Monocytes % Monocytes % (Manual) Eosinophils % Eosinophils % (Manual) Basophils % Basophils % (Manual) Myelocytes % (Man) Promyelocytes % (Man) Blast Cells % (Manual) Nucleated RBC % Metamyelocytes Hypochromia Platelet Estimate Platelet Comment Poikilocytosis Anisocytosis Microcytosis Macrocytosis Tear Drop Cells Ovalocytes Rouleaux PT with INR INR PTT (Actin FS) Anticoagulation Therapy No Result Required. Puncture Site Right brachial ABG pH 7.39 ABG pCO2 at Pt Temp 39.4 ABG pO2 at Pt Temp 115 H ABG HCO3 23.6 ABG O2 Sat (Measured) 97.8 ABG O2 Content No Result Required. ABG Base Excess -0.6 Paxton Test Negative O2 Delivery Device No Result Required. Oxygen Flow Rate No Result Required. Vent Mode No Result Required. Vent Rate No Result Required. Mechanical Rate No Result Required. Pressure Support Vent No Result Required. Sodium 131 L Potassium 6.0 H Chloride 97 L Carbon Dioxide 10 L Anion Gap 24 H BUN 58 H Creatinine 3.7 H Creat Clearance w eGFR 16.28 POC Glucometer Random Glucose 146 H Lactic Acid Calcium 8.5 Phosphorus 5.4 H Magnesium 0.9 L Ferritin Total Bilirubin 1.8 H Direct Bilirubin GGT AST 518 H ALT 633 H Alkaline Phosphatase 79 Ammonia 47.10 H Creatine Kinase Troponin I Total Protein 7.6 Albumin 3.2 L Lipase TSH 1.39 D Hepatitis A IgM Ab Hep Bs Antigen Hep B Core IgM Ab Hepatitis C Antibody Blood Type Antibody Screen Antibody Identification Crossmatch 02/06/19 02/07/19 02/07/19 22:58 00:05 00:05 WBC RBC Hgb Hct MCV MCH MCHC RDW Plt Count MPV Absolute Neuts (auto) Neutrophils % Neutrophils % (Manual) Band Neutrophils % Lymphocytes % Lymphocytes % (Manual) Monocytes % Monocytes % (Manual) Eosinophils % Eosinophils % (Manual) Basophils % Basophils % (Manual) Myelocytes % (Man) Promyelocytes % (Man) Blast Cells % (Manual) Nucleated RBC % Metamyelocytes Hypochromia Platelet Estimate Platelet Comment Poikilocytosis Anisocytosis Microcytosis Macrocytosis Tear Drop Cells Ovalocytes Rouleaux PT with INR INR PTT (Actin FS) Anticoagulation Therapy Puncture Site ABG pH ABG pCO2 at Pt Temp ABG pO2 at Pt Temp ABG HCO3 ABG O2 Sat (Measured) ABG O2 Content ABG Base Excess Paxton Test O2 Delivery Device Oxygen Flow Rate Vent Mode Vent Rate Mechanical Rate Pressure Support Vent Sodium Potassium 5.1 Chloride Carbon Dioxide Anion Gap BUN Creatinine Creat Clearance w eGFR POC Glucometer 142 Random Glucose Lactic Acid 2.3 H* Calcium Phosphorus Magnesium Ferritin Total Bilirubin Direct Bilirubin GGT AST ALT Alkaline Phosphatase Ammonia Creatine Kinase Troponin I 0.62 H* Total Protein Albumin Lipase TSH Hepatitis A IgM Ab Hep Bs Antigen Hep B Core IgM Ab Hepatitis C Antibody Blood Type Antibody Screen Antibody Identification Crossmatch 02/07/19 02/07/19 02/07/19 05:30 05:30 05:30 WBC 23.7 H RBC 2.78 L Hgb 8.6 L Hct 26.5 L MCV 95.2 MCH 30.9 MCHC 32.5 RDW 29.6 H Plt Count 175 MPV 11.2 H Absolute Neuts (auto) 20.2 H Neutrophils % 85.3 H Neutrophils % (Manual) 69.3 Band Neutrophils % 8.9 Lymphocytes % 5.6 L Lymphocytes % (Manual) 7.9 L D Monocytes % 8.6 Monocytes % (Manual) 10 Eosinophils % 0.2 Eosinophils % (Manual) 0.0 D Basophils % 0.3 Basophils % (Manual) 0.0 Myelocytes % (Man) 2 D Promyelocytes % (Man) 0 Blast Cells % (Manual) 0 Nucleated RBC % 0 Metamyelocytes 0 D Hypochromia 1+ Platelet Estimate Normal Platelet Comment Present Poikilocytosis 2+ Anisocytosis 2+ Microcytosis 1+ Macrocytosis 1+ Tear Drop Cells 1+ Ovalocytes 1+ Rouleaux PT with INR INR PTT (Actin FS) Anticoagulation Therapy Puncture Site ABG pH ABG pCO2 at Pt Temp ABG pO2 at Pt Temp ABG HCO3 ABG O2 Sat (Measured) ABG O2 Content ABG Base Excess Paxton Test O2 Delivery Device Oxygen Flow Rate Vent Mode Vent Rate Mechanical Rate Pressure Support Vent Sodium 132 L Potassium 4.7 Chloride 96 L Carbon Dioxide 26 Anion Gap 10 BUN 99 H Creatinine 3.9 H Creat Clearance w eGFR 15.32 POC Glucometer Random Glucose 138 H Lactic Acid Calcium 8.4 L Phosphorus Magnesium 2.6 H Ferritin 7958.2 H Total Bilirubin 1.8 H 1.7 H Direct Bilirubin 1.0 H GGT 85 AST 427 H 432 H ALT 583 H 593 H Alkaline Phosphatase 68 69 Ammonia Creatine Kinase Troponin I Total Protein 6.8 7.1 Albumin 0.5 L 2.9 L Lipase 267 TSH Hepatitis A IgM Ab Hep Bs Antigen Hep B Core IgM Ab Hepatitis C Antibody Blood Type Antibody Screen Antibody Identification Crossmatch 02/07/19 02/07/19 02/07/19 05:30 05:30 06:18 WBC RBC Hgb Hct MCV MCH MCHC RDW Plt Count MPV Absolute Neuts (auto) Neutrophils % Neutrophils % (Manual) Band Neutrophils % Lymphocytes % Lymphocytes % (Manual) Monocytes % Monocytes % (Manual) Eosinophils % Eosinophils % (Manual) Basophils % Basophils % (Manual) Myelocytes % (Man) Promyelocytes % (Man) Blast Cells % (Manual) Nucleated RBC % Metamyelocytes Hypochromia Platelet Estimate Platelet Comment Poikilocytosis Anisocytosis Microcytosis Macrocytosis Tear Drop Cells Ovalocytes Rouleaux PT with INR 44.80 H INR 3.75 H PTT (Actin FS) 31.2 Anticoagulation Therapy Puncture Site ABG pH ABG pCO2 at Pt Temp ABG pO2 at Pt Temp ABG HCO3 ABG O2 Sat (Measured) ABG O2 Content ABG Base Excess Paxton Test O2 Delivery Device Oxygen Flow Rate Vent Mode Vent Rate Mechanical Rate Pressure Support Vent Sodium Potassium Chloride Carbon Dioxide Anion Gap BUN Creatinine Creat Clearance w eGFR POC Glucometer 131 Random Glucose Lactic Acid 2.9 H* Calcium Phosphorus Magnesium Ferritin Total Bilirubin Direct Bilirubin GGT AST ALT Alkaline Phosphatase Ammonia Creatine Kinase Troponin I Total Protein Albumin Lipase TSH Hepatitis A IgM Ab Hep Bs Antigen Hep B Core IgM Ab Hepatitis C Antibody Blood Type Antibody Screen Antibody Identification Crossmatch 02/07/19 02/07/19 09:25 11:43 WBC RBC Hgb Hct MCV MCH MCHC RDW Plt Count MPV Absolute Neuts (auto) Neutrophils % Neutrophils % (Manual) Band Neutrophils % Lymphocytes % Lymphocytes % (Manual) Monocytes % Monocytes % (Manual) Eosinophils % Eosinophils % (Manual) Basophils % Basophils % (Manual) Myelocytes % (Man) Promyelocytes % (Man) Blast Cells % (Manual) Nucleated RBC % Metamyelocytes Hypochromia Platelet Estimate Platelet Comment Poikilocytosis Anisocytosis Microcytosis Macrocytosis Tear Drop Cells Ovalocytes Rouleaux PT with INR INR PTT (Actin FS) Anticoagulation Therapy Puncture Site ABG pH ABG pCO2 at Pt Temp ABG pO2 at Pt Temp ABG HCO3 ABG O2 Sat (Measured) ABG O2 Content ABG Base Excess Paxton Test O2 Delivery Device Oxygen Flow Rate Vent Mode Vent Rate Mechanical Rate Pressure Support Vent Sodium Potassium Chloride Carbon Dioxide Anion Gap BUN Creatinine Creat Clearance w eGFR POC Glucometer 150 Random Glucose Lactic Acid 1.6 Calcium Phosphorus Magnesium Ferritin Total Bilirubin Direct Bilirubin GGT AST ALT Alkaline Phosphatase Ammonia Creatine Kinase Troponin I Total Protein Albumin Lipase TSH Hepatitis A IgM Ab Hep Bs Antigen Hep B Core IgM Ab Hepatitis C Antibody Blood Type Antibody Screen Antibody Identification Crossmatch Active Medications Generic Name Dose Route Start Last Admin Trade Name Alexis PRN Reason Stop Dose Admin Folic Acid 1 mg 02/02/19 10:00 02/07/19 09:55 Folic Acid - PO 1 mg DAILY IAN Administration Cefepime HCl 1 gm/ Dextrose 100 mls @ 200 mls/hr 02/07/19 10:00 02/07/19 09: 56 IVPB 200 mls/hr DAILY IAN Administration Protocol Vasopressin 50 units/ Sodium 100 mls @ 4 mls/hr 02/06/19 17:45 02/07/19 05:39 Chloride IVPB 6 units/hr ASDIR IAN 12 mls/hr Titration Protocol 2 UNITS/HR Sodium Chloride 1,000 mls @ 1,000 mls/hr 02/07/19 12:39 Normal Saline - IV 02/07/19 13:38 ASDIR STA Insulin Aspart 1 vial 02/02/19 07:00 02/07/19 11:55 Novolog Vial Sliding Scale - SQ Not Given ACHS [facility] Protocol Insulin Detemir 20 units 02/02/19 08:15 02/07/19 06:19 Levemir Vial SQ Not Given AM IAN Ipratropium [place] 1 amp 02/03/19 18:09 02/05/19 22:33 Atrovent 0.02% Nebulizer - NEB 02/10/19 18:09 1 amp Q6H PRN Administration Dyspnea Lidocaine 1 patch 02/03/19 11:45 02/07/19 09:55 Lidoderm Patch - TP 1 patch DAILY IAN Administration Metoprolol Succinate 100 mg 02/07/19 01:42 02/07/19 09:55 Toprol Xl - PO Not Given BID IAN Metoprolol Tartrate 5 mg 02/07/19 01:41 Lopressor Injection - IVPUSH Q4H PRN HYPERTENSION Miscellaneous 1 each 02/03/19 22:00 02/06/19 23:43 Lidoderm Patch Removal MC 1 each DAILY@2200 IAN Administration Non-Formulary Medication 145 mcg 02/02/19 10:00 Linaclotide [Linzess] PO DAILY [facility] [id number] Ethyl Esters 2 gm 02/02/19 22:00 02/07/19 09:55 Lovaza - PO 2 gm BID IAN Administration Polyethylene Glycol 17 gm 02/02/19 10:00 02/07/19 09:56 Miralax (For Daily Use) - PO Not Given DAILY IAN Ranolazine 1,000 mg 02/02/19 10:00 02/07/19 09:55 Ranexa - PO 1,000 mg BID IAN Administration Umeclidinium/Vilanterol 1 puff 02/02/19 10:00 02/07/19 09:55 Anoro Ellipta 62.5-25 Mcg Inh IH Not Given DAILY IAN ASSESSMENT/PLAN: 73 yo M h/o HTN, DM, hypercholesterolemia, COPD, chronic hypoxic respiratory failure on home O2, CAD s/p CABG, JARET, CKD, s/p code garcia on 02/06 @ 3:10pm transferred to ICU for AMS with persistent hypotension. Neuro: AMS resolved today; meri 2/2 metabolic encephalopathy vs PNA - twitchings, unlikely seizure as patient was immediately arousable when called - MRI to r/o CVA when respiratory status permits - serum ammonia elevated ID: septic shock 2/2 PNA - patient's BP labile today; responded to 1L fluid bolus - vasopressin @ 6 for pressure support. - lactate normalized - ID suggests c/w vancomycin and zosyn (day2) - will redraw bcx, ucx, sputum cx per ID - Random vanc in AM Pulm: COPD, chronic hypoxemic respiratory failure on home O2 3L, JARET, - ABG shows mild respiratory alkalosis, low to normal A-a gradient - Cont. with BiPAP for work of breathing GI: fatty liver - trend LFTs - f/u CT a/p - c/w miralax and PPI CV: HFpEF, a-flutter - c/w eliquis - c/w toprol XL BID - amiodarone stopped in the setting of elevated LFTs Renal: JANETH on CKD - Unknown baseline - Cont to trend BUN/Cr - Avoid nephrotoxic agents FEN - NS boluses as tolerated for hypotension; caution in setting of CHF - monitor lytes - NPO for now Prophy - on home eliquis Dispo: - Admit ICU Visit type - Emergency Visit Emergency Visit: Yes ED Registration Date: 02/05/19 Care time: The patient presented to the Emergency Department on the above date and was hospitalized for further evaluation of their emergent condition. - New Patient This patient is new to me today: Yes Date on this admission: 02/07/19 - Critical Care Critical Care patient: Yes Total Critical Care Time (in minutes): 40 Critical Care Statement: The care of this patient involved high complexity decision making to prevent further life threatening deterioration of the patient 's condition and/or to evaluate & treat vital organ system(s) failure or risk of failure. - Discharge Referral Referred to [facility] Med P.C.: No
--- NOTE | 2019-02-07 13:00 | PN ---
Progress Note, Physician History of Present Illness: Pt seen and examined at bedside. He was transferred to the ICU last night for hypotension and sepsis. He is awake and answering questions but is confused. He is back on bipap. - Current Medication List Current Medications: Active Medications Folic Acid (Folic Acid -) 1 mg PO DAILY [facility] Last Admin: 02/07/19 09:55 Dose: 1 mg Cefepime HCl 1 gm/ Dextrose 100 mls @ 200 mls/hr IVPB DAILY IAN; Protocol Last Admin: 02/07/19 09:56 Dose: 200 mls/hr Vasopressin 50 units/ Sodium (Chloride) 100 mls @ 4 mls/hr IVPB ASDIR IAN; Protocol Last Titration: 02/07/19 05:39 Dose: 6 units/hr, 12 mls/hr Sodium Chloride (Normal Saline -) 1,000 mls @ 1,000 mls/hr IV ASDIR STA Stop: 02/07/19 13:38 Insulin Aspart (Novolog Vial Sliding Scale -) 1 vial SQ ACHS [facility]; Protocol Last Admin: 02/07/19 11:55 Dose: Not Given Insulin Detemir (Levemir Vial) 20 units SQ AM IAN Last Admin: 02/07/19 06:19 Dose: Not Given Ipratropium [place] (Atrovent 0.02% Nebulizer -) 1 amp NEB Q6H PRN PRN Reason: Dyspnea Stop: 02/10/19 18:09 Last Admin: 02/05/19 22:33 Dose: 1 amp Lidocaine (Lidoderm Patch -) 1 patch TP DAILY [facility] Last Admin: 02/07/19 09:55 Dose: 1 patch Metoprolol Succinate (Toprol Xl -) 100 mg PO BID [facility] Last Admin: 02/07/19 09:55 Dose: Not Given Metoprolol Tartrate (Lopressor Injection -) 5 mg IVPUSH Q4H PRN PRN Reason: HYPERTENSION Miscellaneous (Lidoderm Patch Removal) 1 each MC DAILY@2200 [facility] Last Admin: 02/06/19 23:43 Dose: 1 each Non-Formulary Medication (Linaclotide [Linzess]) 145 mcg PO DAILY [facility] [id number] Ethyl Esters (Lovaza -) 2 gm PO BID [facility] Last Admin: 02/07/19 09:55 Dose: 2 gm Polyethylene Glycol (Miralax (For Daily Use) -) 17 gm PO DAILY [facility] Last Admin: 02/07/19 09:56 Dose: Not Given Ranolazine (Ranexa -) 1,000 mg PO BID IAN Last Admin: 02/07/19 09:55 Dose: 1,000 mg Umeclidinium/Vilanterol (Anoro Ellipta 62.5-25 Mcg Inh) 1 puff IH DAILY IAN Last Admin: 02/07/19 09:55 Dose: Not Given - Objective Vital Signs: Vital Signs Temperature 97.6 F 02/07/19 10:00 Pulse Rate 68 02/07/19 12:00 Respiratory Rate 17 02/07/19 12:00 Blood Pressure 98/72 02/07/19 12:00 O2 Sat by Pulse Oximetry (%) 100 02/07/19 12:03 Constitutional: Yes: Calm Eyes: Yes: Conjunctiva Clear HENT: Yes: Atraumatic Neck: Yes: Supple Cardiovascular: Yes: S1, S2 Respiratory: Yes: On BiPap Gastrointestinal: Yes: Soft Genitourinary: Yes: Hinds Present Musculoskeletal: Yes: Muscle Weakness Edema: Yes Edema: LLE: Trace, RLE: Trace Neurological: Yes: Confusion Labs: CBC, BMP 02/07/19 05:30 02/07/19 05:30 INR, PTT INR 3.75 (0.83-1.09) H 02/07/19 05:30 - ....Imaging Chest X-ray: Report Reviewed Assessment/Plan Current Medications Generic Name Dose Route Start Last Admin Trade Name Alexis PRN Reason Stop Dose Admin Folic Acid 1 mg 02/02/19 10:00 02/07/19 09:55 Folic Acid - PO 1 mg DAILY IAN Administration Cefepime HCl 1 gm/ Dextrose 100 mls @ 200 mls/hr 02/07/19 10:00 02/07/19 09: 56 IVPB 200 mls/hr DAILY IAN Administration Protocol Vasopressin 50 units/ Sodium 100 mls @ 4 mls/hr 02/06/19 17:45 02/07/19 05:39 Chloride IVPB 6 units/hr ASDIR IAN 12 mls/hr Titration Protocol 2 UNITS/HR Sodium Chloride 1,000 mls @ 1,000 mls/hr 02/07/19 12:39 Normal Saline - IV 02/07/19 13:38 ASDIR STA Insulin Aspart 1 vial 02/02/19 07:00 02/07/19 11:55 Novolog Vial Sliding Scale - SQ Not Given ACHS [facility] Protocol Insulin Detemir 20 units 02/02/19 08:15 02/07/19 06:19 Levemir Vial SQ Not Given AM IAN Ipratropium [place] 1 amp 02/03/19 18:09 02/05/19 22:33 Atrovent 0.02% Nebulizer - NEB 02/10/19 18:09 1 amp Q6H PRN Administration Dyspnea Lidocaine 1 patch 02/03/19 11:45 02/07/19 09:55 Lidoderm Patch - TP 1 patch DAILY IAN Administration Metoprolol Succinate 100 mg 02/07/19 01:42 02/07/19 09:55 Toprol Xl - PO Not Given BID IAN Metoprolol Tartrate 5 mg 02/07/19 01:41 Lopressor Injection - IVPUSH Q4H PRN HYPERTENSION Miscellaneous 1 each 02/03/19 22:00 02/06/19 23:43 Lidoderm Patch Removal MC 1 each DAILY@2200 IAN Administration Non-Formulary Medication 145 mcg 02/02/19 10:00 Linaclotide [Linzess] PO DAILY IAN [id number]-[id number] Ethyl Esters 2 gm 02/02/19 22:00 02/07/19 09:55 Lovaza - PO 2 gm BID IAN Administration Polyethylene Glycol 17 gm 02/02/19 10:00 02/07/19 09:56 Miralax (For Daily Use) - PO Not Given DAILY IAN Ranolazine 1,000 mg 02/02/19 10:00 02/07/19 09:55 Ranexa - PO 1,000 mg BID IAN Administration Umeclidinium/Vilanterol 1 puff 02/02/19 10:00 02/07/19 09:55 Anoro Ellipta 62.5-25 Mcg Inh IH Not Given DAILY IAN Impression 1. CKD 2. HTN 3. DM 4. resp failure requiring bipap 5. anemia 6. CHF 7. JANETH Plan - renal function is worsening - pt was hypotensive - will hold off lasix for now - monitor urine output - repeat labs in am - potassium improved - keep arb on hold - pressors to a map of 65 - discussed with ICU team
--- NOTE | 2019-02-07 13:31 | PN ---
Progress Note (short form) - Note Progress Note: events noted, became hypotensive last night on vasopressin remains on bipap quite alert no chest or abdominal pain requesting tv remote control rising leukocytosis noted Vital Signs Period Temp Pulse Resp BP Sys/Renteria Pulse Ox Last 24 Hr 97 F-98.1 F 65-73 12-28 89-130/37-97 98-100 cor-rrr lungs decreased bs at bases abd firm, soft, protuberaant, NT ext trace edema +reddy CBC, BMP 02/07/19 05:30 02/07/19 05:30 Microbiology 02/04/19 01:00 Blood - Peripheral Venous Blood Culture - Preliminary NO GROWTH OBTAINED AFTER 72 HOURS, INCUBATION TO CONTINUE FOR 2 DAYS. 02/04/19 01:00 Blood - Peripheral Venous Blood Culture - Preliminary NO GROWTH OBTAINED AFTER 72 HOURS, INCUBATION TO CONTINUE FOR 2 DAYS. 02/04/19 16:00 Urine - Urine Reddy Urine Culture - Final NO GROWTH OBTAINED 02/02/19 16:00 Sputum - Expectorated Gram Stain - Final 02/02/19 16:00 Sputum - Expectorated Sputum Culture - Final NORMAL RESPIRATORY HARLAN 02/04/19 16:00 Urine For Antigen Detection Legionella Antigen - Final 02/04/19 16:00 Urine For Antigen Detection Streptococcus pneumoniae Antigen (M - Final 02/03/19 20:20 Urine - Urine Reddy Urine Culture - Final NO GROWTH OBTAINED chest ct- bilateral patchy infiltrates abd/pelvis- peripancreatic fluid, cholelithiasis, no ocholycystitis, splenomegaly Active Medications Folic Acid (Folic Acid -) 1 mg PO DAILY [facility] Last Admin: 02/07/19 09:55 Dose: 1 mg Cefepime HCl 1 gm/ Dextrose 100 mls @ 200 mls/hr IVPB DAILY [facility]; Protocol Last Admin: 02/07/19 09:56 Dose: 200 mls/hr Vasopressin 50 units/ Sodium (Chloride) 100 mls @ 4 mls/hr IVPB ASDIR [facility]; Protocol Last Titration: 02/07/19 05:39 Dose: 6 units/hr, 12 mls/hr Sodium Chloride (Normal Saline -) 1,000 mls @ 1,000 mls/hr IV ASDIR STA Stop: 02/07/19 13:38 Insulin Aspart (Novolog Vial Sliding Scale -) 1 vial SQ ACHS I[facility]; Protocol Last Admin: 02/07/19 11:55 Dose: Not Given Insulin Detemir (Levemir Vial) 20 units SQ AM REPLACED BY [facility] Last Admin: 02/07/19 06:19 Dose: Not Given Ipratropium [place] (Atrovent 0.02% Nebulizer -) 1 amp NEB Q6H PRN PRN Reason: Dyspnea Stop: 02/10/19 18:09 Last Admin: 02/05/19 22:33 Dose: 1 amp Lidocaine (Lidoderm Patch -) 1 patch TP DAILY REPLACED BY [facility] Last Admin: 02/07/19 09:55 Dose: 1 patch Metoprolol Succinate (Toprol Xl -) 100 mg PO BID REPLACED BY [facility] Last Admin: 02/07/19 09:55 Dose: Not Given Metoprolol Tartrate (Lopressor Injection -) 5 mg IVPUSH Q4H PRN PRN Reason: HYPERTENSION Miscellaneous (Lidoderm Patch Removal) 1 each MC DAILY@2200 REPLACED BY [facility] Last Admin: 02/06/19 23:43 Dose: 1 each Non-Formulary Medication (Linaclotide [Linzess]) 145 mcg PO DAILY REPLACED BY [facility] Mgqdg-1-Ppos Ethyl Esters (Lovaza -) 2 gm PO BID REPLACED BY [facility] Last Admin: 02/07/19 09:55 Dose: 2 gm Polyethylene Glycol (Miralax (For Daily Use) -) 17 gm PO DAILY REPLACED BY [facility] Last Admin: 02/07/19 09:56 Dose: Not Given Ranolazine (Ranexa -) 1,000 mg PO BID REPLACED BY [facility] Last Admin: 02/07/19 09:55 Dose: 1,000 mg Umeclidinium/Vilanterol (Anoro Ellipta 62.5-25 Mcg Inh) 1 puff IH DAILY REPLACED BY [facility] Last Admin: 02/07/19 09:55 Dose: Not Given a/p leukocytosis/hypotension requiring pressors- cannot r/o pneumonia in the setting of recent rib fracture and recent hospital admission chf copd ckd-rowsening abnl lfts repeat cultures, blood and urine vancomycin 1 gram one dose, random level in am zosyn 2.25 g q8h d/w ICU residents Problem List - Problems (1) Fever Code(s): R50.9 - FEVER, UNSPECIFIED (2) Pneumonia Code(s): J18.9 - PNEUMONIA, UNSPECIFIED ORGANISM (3) Rib fractures Code(s): S22.39XA - FRACTURE OF ONE RIB, UNSP SIDE, INIT FOR CLOS FX (4) Acute on chronic diastolic (congestive) heart failure Code(s): I50.33 - ACUTE ON CHRONIC DIASTOLIC (CONGESTIVE) HEART FAILURE (5) COPD (chronic obstructive pulmonary disease) Code(s): J44.9 - CHRONIC OBSTRUCTIVE PULMONARY DISEASE, UNSPECIFIED (6) CKD (chronic kidney disease) Code(s): N18.9 - CHRONIC KIDNEY DISEASE, UNSPECIFIED
[2019-02-07] MEDS: PIPERACILLIN/TAZOB 2.25 GM 2.25 GM in DEXTROSE 5%-WATER - 50 ML IVPB SCH ×2 (14:00→18:27)
[2019-02-07] MEDS: VASOPRESSIN 50 UNITS in SODIUM CHLORIDE 97.5 ML IVPB SCH (18:10)
[2019-02-07] MEDS ORDERED: PIPERACILLIN/TAZOBACTAM 2.25 GM VIAL IVPB ONE (18:22)
[2019-02-07] MEDS ORDERED: DEXTROSE 5%-WATER - 100 ML IVPB ONE (18:23)
--- NOTE | 2019-02-07 19:51 | CONSULT ---
Consult - text type - Consultation Consultation Note: NEUROLOGY CONSULT GREATLY APPRECIATED: Events reviewed and discussed with staff and LEO Acevedo. This 73 yo M with HTN, DM, HLD, COPD, sleep apnea, aflutter on AC, anemia, CHF, CAD s/p CABG, PPM, ETOH/nicotine use is maintained on: ASA, insulin, folic acid, linzess, anoro, atorvastatin, ranolazine, apixaban, furosemide, meclizine, metoprolol, promacta. Admitted after fall with bruising to ribs, found to be hyponatremic, in acute renal failure with elevated LFTs and WBC 13.5 CHF exacerbation with recent intermittent fevers with possible PNA, currently on IV Zoysn and BIPAP qhs. This AM, noted by staff to be shaking left arm and leg, hypotensive and oxygen sat of 92 transferred to ICU. Improvement noted after IVF and resumption of BIPAP. Head CT x2 (reviewed): Mild atrophy with some ventricular dilation. Periventricular ischemic changes. R cerebellar lacunae. WBC 12.5 -> 20.1, NA 132 BUN/Cr 99/3.9 AST 427, ALT 583, Albumin 0.5, ammonia 42.60, TSH 1.39, A1c 7.6 CONSUELO: Cor regular. No bruit. Neck supple. No evidence of head trauma. Audible wheezing. Reddy in situ NEURO: Mentation/Speech: Ox [facility]. January. TRUMP. Speech is hoarse. CNII-CNXII: OD EOM intact. OS adduction defect with limited EOM, but both pupils reactive. No facial. Motor: No obvious drift. Strength normal. Reflexes normal. Plantars silent. Sensation: Reduced pinch in toes. Impression: Fall with rib contusion Toxic-Metabolic Encephalopathy with ? 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
[2019-02-07] MEDS ORDERED: PT OWN MED DRAWER 7, Y5N ONE (20:28)
[2019-02-07] MEDS: LIDOCAINE PATCH REMOVAL MC SCH (21:24)
[2019-02-07] MEDS: THIAMINE HCL 200 MG/2 ML VIAL IVPB SCH (21:25)
[2019-02-08] MEDS ORDERED: DEXTROSE 5%-WATER - 100 ML IVPB ONE (03:17)
[2019-02-08] MEDS ORDERED: PIPERACILLIN/TAZOBACTAM 2.25 GM VIAL IVPB ONE ×2 (03:17→09:21)
[2019-02-08] MEDS: PIPERACILLIN/TAZOB 2.25 GM 2.25 GM in DEXTROSE 5%-WATER - 50 ML IVPB SCH ×3 (03:27→18:02)
[2019-02-08 06:41] LABS: HEMATOCRIT 25.8 % (35.4-49); HEMOGLOBIN 8.1 GM/dL (11.7-16.9); MCH 30.4 pg (25.7-33.7); MCHC 31.6 g/dl (32.0-35.9); MEAN CELL VOLUME 96.2 fl (80-96); MEAN PLT VOLUME 11.1 fl (7.5-11.1); PLATELET COUNT 161 K/MM3 (134-434); RBC 2.68 M/mm3 (4.00-5.60); WHITE BLOOD COUNT 20.3 K/mm3 (4.0-10.0)
[2019-02-08 06:54] LABS: INR 2.34 (0.83-1.09); PROTHROMBIN TIME (PATIENT) 27.9 SEC (9.7-13.0)
[2019-02-08 06:59] LABS: ALBUMIN 2.8 g/dl (3.4-5.0); ALK PHOS 64 U/L (45-117); ANION GAP 7 MMOL/L (8-16); BILIRUBIN,TOTAL 1.5 mg/dL (0.2-1); BLOOD UREA NITROGEN 95 mg/dL (7-18); CALCIUM 8.5 mg/dL (8.5-10.1); CHLORIDE 98 mmol/L (98-107); CO2 26 mmol/L (21-32); CREATININE 3.1 mg/dL (0.55-1.3); GLUCOSE,RANDOM 197 mg/dL (74-106); MAGNESIUM 2.8 mg/dL (1.8-2.4); PHOSPHOROUS 5.1 mg/dL (2.5-4.9); POTASSIUM 4.6 mmol/L (3.5-5.1); SGOT/AST 239 U/L (15-37); SGPT/ALT 456 U/L (13-61); SODIUM 131 mmol/L (136-145)
[2019-02-08] MEDS: THIAMINE HCL 200 MG/2 ML VIAL IVPB SCH ×4 (07:08→23:01)
[2019-02-08] MEDS: INSULIN (LEVEMIR) 100 UNITS/ML UNITS SQ SCH (07:08)
[2019-02-08] MEDS: INSULIN SLIDING SCALE (NOVOLOG) 1 VIAL SQ SCH ×4 (07:08→22:53)
[2019-02-08 08:06] LABS: SERUM IRON SATURATION 67 % (15-55); TOTAL IRON BINDING CAPACITY 248 ug/dL (250-450); UIBC 82 ug/dL (111-343)
--- NOTE | 2019-02-08 08:28 | PN ---
Progress Note, Physician - Current Medication List Current Medications: Active Medications Folic Acid (Folic Acid -) 1 mg PO DAILY [facility] Last Admin: 02/07/19 09:55 Dose: 1 mg Vasopressin 50 units/ Sodium (Chloride) 100 mls @ 4 mls/hr IVPB ASDIR [facility]; Protocol Last Admin: 02/07/19 18:10 Dose: 6 units/hr, 12 mls/hr Piperacillin Sod/Tazobactam (Sod 2.25 gm/ Dextrose) 50 mls @ 100 mls/hr IVPB Q8H-IV [facility]; Protocol Last Admin: 02/08/19 03:27 Dose: 100 mls/hr Insulin Aspart (Novolog Vial Sliding Scale -) 1 vial SQ ACHS [facility]; Protocol Last Admin: 02/08/19 07:08 Dose: 4 unit Insulin Detemir (Levemir Vial) 20 units SQ AM [facility] Last Admin: 02/08/19 07:08 Dose: 20 unit Ipratropium [place] (Atrovent 0.02% Nebulizer -) 1 amp NEB Q6H PRN PRN Reason: Dyspnea Stop: 02/10/19 18:09 Last Admin: 02/05/19 22:33 Dose: 1 amp Lidocaine (Lidoderm Patch -) 1 patch TP DAILY [facility] Last Admin: 02/07/19 09:55 Dose: 1 patch Metoprolol Succinate (Toprol Xl -) 100 mg PO BID [facility] Last Admin: 02/07/19 21:25 Dose: Not Given Metoprolol Tartrate (Lopressor Injection -) 5 mg IVPUSH Q4H PRN PRN Reason: HYPERTENSION Miscellaneous (Lidoderm Patch Removal) 1 each MC DAILY@2200 [facility] Last Admin: 02/07/19 21:24 Dose: 1 each Non-Formulary Medication (Linaclotide [Linzess]) 145 mcg PO DAILY [facility] [id number] Ethyl Esters (Lovaza -) 2 gm PO BID [facility] Last Admin: 02/07/19 21:24 Dose: 2 gm Polyethylene Glycol (Miralax (For Daily Use) -) 17 gm PO DAILY [facility] Last Admin: 02/07/19 09:56 Dose: Not Given Ranolazine (Ranexa -) 1,000 mg PO BID [facility] Last Admin: 02/07/19 21:25 Dose: 1,000 mg Thiamine HCl (Vitamin B1 Injection -) 250 mg IVPB TID IAN Stop: 02/10/19 21:59 Last Admin: 02/08/19 07:08 Dose: 250 mg Umeclidinium/Vilanterol (Anoro Ellipta 62.5-25 Mcg Inh) 1 puff IH DAILY [facility] Last Admin: 02/07/19 09:55 Dose: Not Given - Objective Vital Signs: Vital Signs Temperature 97.8 F 02/07/19 22:00 Pulse Rate 67 02/08/19 02:00 Respiratory Rate 21 H 02/08/19 02:00 Blood Pressure 106/49 L 02/08/19 02:00 O2 Sat by Pulse Oximetry (%) 99 02/08/19 08:13 Cardiovascular: Yes: S1, S2 Respiratory: Yes: On Nasal O2, Rhonchi Gastrointestinal: Yes: Normal Bowel Sounds, Soft Labs: CBC, BMP 02/08/19 05:30 02/08/19 05:30 INR, PTT INR 2.34 (0.83-1.09) H 02/08/19 05:30 Assessment/Plan - Problems (1) Fever Assessment/Plan: ID on board iv abx- cefepime/vancomycin Microbiology 02/04/19 16:00 Urine For Antigen Detection Legionella Antigen - Final 02/04/19 16:00 Urine For Antigen Detection Streptococcus pneumoniae Antigen (M - Final 02/04/19 16:00 Urine - Urine Hinds Urine Culture - Final NO GROWTH OBTAINED 02/03/19 20:20 Urine - Urine Hinds Urine Culture - Final NO GROWTH OBTAINED 02/02/19 16:00 Sputum - Expectorated Gram Stain - Final 02/02/19 16:00 Sputum - Expectorated Sputum Culture - Final NORMAL RESPIRATORY [facility]LAN 02/04/19 01:00 Blood - Peripheral Venous Blood Culture - Preliminary NO GROWTH OBTAINED AFTER 72 HOURS, INCUBATION TO CONTINUE FOR 2 DAYS. 02/04/19 01:00 Blood - Peripheral Venous Blood Culture - Preliminary NO GROWTH OBTAINED AFTER 72 HOURS, INCUBATION TO CONTINUE FOR 2 DAYS. lactic acid trending down Code(s): R50.9 - FEVER, UNSPECIFIED (2) Rib fractures Assessment/Plan: pain control Code(s): S22.39XA - FRACTURE OF ONE RIB, UNSP SIDE, INIT FOR CLOS FX (3) Atrial flutter Assessment/Plan: amiodarone stopped bc of increase lft refused synchronized ERIKA cardioversion toprol Code(s): I48.92 - UNSPECIFIED ATRIAL FLUTTER (4) CKD (chronic kidney disease) Code(s): N18.9 - CHRONIC KIDNEY DISEASE, UNSPECIFIED (5) Diabetes Assessment/Plan: iinsulin bgm Code(s): E11.9 - TYPE 2 DIABETES MELLITUS WITHOUT COMPLICATIONS Qualifiers: Diabetes mellitus type: type 2 (6) COPD (chronic obstructive pulmonary disease) Assessment/Plan: bipap oxygen Code(s): J44.9 - CHRONIC OBSTRUCTIVE PULMONARY DISEASE, UNSPECIFIED
[2019-02-08] MEDS ORDERED: RANOLAZINE E.R. 500 MG TABLET (FP) ONE ×2 (09:19→21:10)
[2019-02-08] MEDS ORDERED: DEXTROSE 5%-WATER - 50 ML IVPB ONE (09:22)
[2019-02-08] MEDS: FOLIC ACID 1 MG TABLET (FP) PO SCH (09:54)
[2019-02-08] MEDS: OMEGA-3 ACID ETHYL ESTERS (FATTY-ACIDS) 1 GM CAPSULE (FP) PO SCH ×3 (09:54→23:02)
[2019-02-08] MEDS: POLYETHYLENE GLYCOL 3350 119 GM BTL PO SCH (09:55)
[2019-02-08] MEDS: RANOLAZINE E.R. 1,000 MG TABLET (FP) PO SCH ×3 (09:55→23:02)
[2019-02-08 11:16] LABS: TRANSGLUTAMINASE IGA 5 U/mL (0-3); TRANSGLUTAMINASE IGG 6 U/mL (0-5)
--- NOTE | 2019-02-08 11:18 | PN ---
Teaching Attending Note Name of Resident: Rhonda Schroeder ATTENDING PHYSICIAN STATEMENT I saw and evaluated the patient. I reviewed the resident's note and discussed the case with the resident. I agree with the resident's findings and plan as documented. SUBJECTIVE: Patient seen and examined in the ICU. Awake and responsive on NC O2. Mildly tachypneic at rest. Decreasing Vasopressin requirements for hemodynamic support. Slightly more awake and interactive today. Denies CP or SOB. CXR: no gross change in bilateral infiltrates Intake & Output 02/05/19 02/06/19 02/07/19 02/08/19 23:59 23:59 23:59 23:59 Intake Total 100 350 786 294 Output Total 620 009 9966 500 Balance -650 50 -764 -206 Weight 223 lb 9.6 oz 223 lb 9 oz 0 oz Last Vital Signs Temp Pulse Resp BP Pulse Ox 97.1 F L 63 21 H 108/45 L 99 02/08/19 08:00 02/08/19 10:00 02/08/19 10:00 02/08/19 10:00 02/08/19 09:00 Active Medications Folic Acid (Folic Acid -) 1 mg PO DAILY [facility] Last Admin: 02/08/19 09:54 Dose: 1 mg Vasopressin 50 units/ Sodium (Chloride) 100 mls @ 4 mls/hr IVPB ASDIR [facility]; Protocol Last Admin: 02/07/19 18:10 Dose: 6 units/hr, 12 mls/hr Piperacillin Sod/Tazobactam (Sod 2.25 gm/ Dextrose) 50 mls @ 100 mls/hr IVPB Q8H-IV [facility]; Protocol Last Admin: 02/08/19 09:59 Dose: 100 mls/hr Insulin Aspart (Novolog Vial Sliding Scale -) 1 vial SQ ACHS [facility]; Protocol Last Admin: 02/08/19 07:08 Dose: 4 unit Insulin Detemir (Levemir Vial) 20 units SQ AM [facility] Last Admin: 02/08/19 07:08 Dose: 20 unit Ipratropium [place] (Atrovent 0.02% Nebulizer -) 1 amp NEB Q6H PRN PRN Reason: Dyspnea Stop: 02/10/19 18:09 Last Admin: 02/05/19 22:33 Dose: 1 amp Lidocaine (Lidoderm Patch -) 1 patch TP DAILY [facility] Last Admin: 02/07/19 09:55 Dose: 1 patch Metoprolol Succinate (Toprol Xl -) 100 mg PO BID [facility] Last Admin: 02/08/19 09:56 Dose: Not Given Metoprolol Tartrate (Lopressor Injection -) 5 mg IVPUSH Q4H PRN PRN Reason: HYPERTENSION Miscellaneous (Lidoderm Patch Removal) 1 each MC DAILY@2200 [facility] Last Admin: 02/07/19 21:24 Dose: 1 each Non-Formulary Medication (Linaclotide [Linzess]) 145 mcg PO DAILY [facility] [id number] Ethyl Esters (Lovaza -) 2 gm PO BID [facility] Last Admin: 02/08/19 09:54 Dose: 2 gm Polyethylene Glycol (Miralax (For Daily Use) -) 17 gm PO DAILY [facility] Last Admin: 02/08/19 09:55 Dose: Not Given Ranolazine (Ranexa -) 1,000 mg PO BID [facility] Last Admin: 02/08/19 09:55 Dose: 1,000 mg Thiamine HCl (Vitamin B1 Injection -) 250 mg IVPB TID [facility] Stop: 02/10/19 21:59 Last Admin: 02/08/19 07:08 Dose: 250 mg Umeclidinium/Vilanterol (Anoro Ellipta 62.5-25 Mcg Inh) 1 puff IH DAILY [facility] Last Admin: 02/07/19 09:55 Dose: Not Given Constitutional: Yes: Awake and responsive on NC O2, mildly tachypneic at rest HENT: Yes: Atraumatic, Normocephalic Cardiovascular: Yes: Regular Rate and Rhythm, S1, S2. No: Murmur Respiratory: Yes: On NC O2, bilateral rhonchi Gastrointestinal: Yes: Abdomen, Obese, Distention, Hepatomegaly. No: Tenderness Edema: No Neurological: Yes: Awake and alert, Non-focal Labs: Laboratory Results - last 24 hr 02/07/19 02/07/19 02/07/19 05:30 05:30 11:43 WBC RBC Hgb Hct MCV MCH MCHC RDW Plt Count MPV Neutrophils % (Manual) 69.3 Band Neutrophils % 8.9 Lymphocytes % (Manual) 7.9 L D Monocytes % (Manual) 10 Eosinophils % (Manual) 0.0 D Basophils % (Manual) 0.0 Myelocytes % (Man) 2 D Promyelocytes % (Man) 0 Blast Cells % (Manual) 0 Metamyelocytes 0 D Hypochromia 1+ Platelet Estimate Normal Platelet Comment Present Poikilocytosis 2+ Anisocytosis 2+ Microcytosis 1+ Macrocytosis 1+ Tear Drop Cells 1+ Ovalocytes 1+ PT with INR INR Sodium Potassium Chloride Carbon Dioxide Anion Gap BUN Creatinine Creat Clearance w eGFR POC Glucometer 150 Random Glucose Calcium Phosphorus Magnesium Iron 166 TIBC 248 L Iron Saturation 67 H Total Bilirubin AST ALT Alkaline Phosphatase Total Protein Albumin Random Vancomycin Tiss Transglutamin IgG 6 H Tiss Transglutamin IgA 5 H 02/07/19 02/07/19 02/08/19 18:08 21:05 05:30 WBC RBC Hgb Hct MCV MCH MCHC RDW Plt Count MPV Neutrophils % (Manual) Band Neutrophils % Lymphocytes % (Manual) Monocytes % (Manual) Eosinophils % (Manual) Basophils % (Manual) Myelocytes % (Man) Promyelocytes % (Man) Blast Cells % (Manual) Metamyelocytes Hypochromia Platelet Estimate Platelet Comment Poikilocytosis Anisocytosis Microcytosis Macrocytosis Tear Drop Cells Ovalocytes PT with INR INR Sodium Potassium Chloride Carbon Dioxide Anion Gap BUN Creatinine Creat Clearance w eGFR POC Glucometer 185 215 Random Glucose Calcium Phosphorus Magnesium Iron TIBC Iron Saturation Total Bilirubin AST ALT Alkaline Phosphatase Total Protein Albumin Random Vancomycin 9.6 L Tiss Transglutamin IgG Tiss Transglutamin IgA 02/08/19 02/08/19 02/08/19 05:30 05:30 05:30 WBC 20.3 H RBC 2.68 L Hgb 8.1 L Hct 25.8 L MCV 96.2 H MCH 30.4 MCHC 31.6 L RDW 30.0 H Plt Count 161 MPV 11.1 Neutrophils % (Manual) Band Neutrophils % Lymphocytes % (Manual) Monocytes % (Manual) Eosinophils % (Manual) Basophils % (Manual) Myelocytes % (Man) Promyelocytes % (Man) Blast Cells % (Manual) Metamyelocytes Hypochromia Platelet Estimate Platelet Comment Poikilocytosis Anisocytosis Microcytosis Macrocytosis Tear Drop Cells Ovalocytes PT with INR 27.90 H INR 2.34 H Sodium 131 L Potassium 4.6 Chloride 98 Carbon Dioxide 26 Anion Gap 7 L BUN 95 H Creatinine 3.1 H Creat Clearance w eGFR 19.96 POC Glucometer Random Glucose 197 H Calcium 8.5 Phosphorus 5.1 H Magnesium 2.8 H Iron TIBC Iron Saturation Total Bilirubin 1.5 H AST 239 H ALT 456 H Alkaline Phosphatase 64 Total Protein 7.0 Albumin 2.8 L Random Vancomycin Tiss Transglutamin IgG Tiss Transglutamin IgA 02/08/19 06:25 WBC RBC Hgb Hct MCV MCH MCHC RDW Plt Count MPV Neutrophils % (Manual) Band Neutrophils % Lymphocytes % (Manual) Monocytes % (Manual) Eosinophils % (Manual) Basophils % (Manual) Myelocytes % (Man) Promyelocytes % (Man) Blast Cells % (Manual) Metamyelocytes Hypochromia Platelet Estimate Platelet Comment Poikilocytosis Anisocytosis Microcytosis Macrocytosis Tear Drop Cells Ovalocytes PT with INR INR Sodium Potassium Chloride Carbon Dioxide Anion Gap BUN Creatinine Creat Clearance w eGFR POC Glucometer 211 Random Glucose Calcium Phosphorus Magnesium Iron TIBC Iron Saturation Total Bilirubin AST ALT Alkaline Phosphatase Total Protein Albumin Random Vancomycin Tiss Transglutamin IgG Tiss Transglutamin IgA Assessment/Plan Septic Shock likely due to PNA R/O early ARDS Coagulopathy -> (?) liver dysfunction / congestion HTN DM Hypercholesterolemia COPD O2 dependent COPD CAD S/P CABG JARET on CPAP CKD Low clinical suspicion of CVA Resolving encephalopathy (?) Seizures Afib / Aflutter (?) ETOH abuse ABX per ID O2 as needed to maintain saturation, NIPPV as needed Aspiration precautions Follow INR Follow final cultures Strict I & O BD TX Requires ICU monitoring for pressors and tenuous respiratory status Dr Teran Critical care time spent in reviewing chart, evaluating patient and formulating plan - 36 minutes.
[2019-02-08 11:43] LABS: EPI CELLS 1.2 /HPF (0-5/HPF); URINE APPEARANCE TURBID; URINE BACTERIA 0.7 /hpf (NEGATIVE); URINE BILIRUBIN NEGATIVE (NEGATIVE); URINE CASTS 9 /lpf (0-8); URINE COLOR DK YELLOW; URINE GLUCOSE (UA) NEGATIVE (NEGATIVE); URINE KETONE NEGATIVE (NEGATIVE); URINE LEUK ESTERASE 1+ (NEGATIVE); URINE NITRITE NEGATIVE (NEGATIVE); URINE PROTEIN 2+ (NEGATIVE); URINE WBC 9 /hpf (0-5)
[2019-02-08] MEDS: LIDOCAINE 5% TOPICAL PATCH TP SCH (11:51)
[2019-02-08 11:54] LABS: CREATININE, URINE RANDOM 114 mg/dL (30-150); URINE UREA NITROGEN 1086 MG/DL (350-1000)
--- NOTE | 2019-02-08 12:51 | PN ---
Progress Note, Physician History of Present Illness: events of last 24 hrs noted - Current Medication List Current Medications: Active Medications Folic Acid (Folic Acid -) 1 mg PO DAILY [facility] Last Admin: 02/08/19 09:54 Dose: 1 mg Vasopressin 50 units/ Sodium (Chloride) 100 mls @ 4 mls/hr IVPB ASDIR [facility]; Protocol Last Titration: 02/08/19 10:23 Dose: 0 units/hr, 0 mls/hr Piperacillin Sod/Tazobactam (Sod 2.25 gm/ Dextrose) 50 mls @ 100 mls/hr IVPB Q8H-IV [facility]; Protocol Last Admin: 02/08/19 09:59 Dose: 100 mls/hr Insulin Aspart (Novolog Vial Sliding Scale -) 1 vial SQ ACHS [facility]; Protocol Last Admin: 02/08/19 11:51 Dose: 2 unit Insulin Detemir (Levemir Vial) 20 units SQ AM [facility] Last Admin: 02/08/19 07:08 Dose: 20 unit Ipratropium [place] (Atrovent 0.02% Nebulizer -) 1 amp NEB Q6H PRN PRN Reason: Dyspnea Stop: 02/10/19 18:09 Last Admin: 02/05/19 22:33 Dose: 1 amp Lidocaine (Lidoderm Patch -) 1 patch TP DAILY [facility] Last Admin: 02/08/19 11:51 Dose: 1 patch Metoprolol Succinate (Toprol Xl -) 100 mg PO BID [facility] Last Admin: 02/08/19 09:56 Dose: Not Given Metoprolol Tartrate (Lopressor Injection -) 5 mg IVPUSH Q4H PRN PRN Reason: HYPERTENSION Miscellaneous (Lidoderm Patch Removal) 1 each MC DAILY@2200 [facility] Last Admin: 02/07/19 21:24 Dose: 1 each Non-Formulary Medication (Linaclotide [Linzess]) 145 mcg PO DAILY [facility] [id number] Ethyl Esters (Lovaza -) 2 gm PO BID [facility] Last Admin: 02/08/19 09:54 Dose: 2 gm Polyethylene Glycol (Miralax (For Daily Use) -) 17 gm PO DAILY [facility] Last Admin: 02/08/19 09:55 Dose: Not Given Ranolazine (Ranexa -) 1,000 mg PO BID [facility] Last Admin: 02/08/19 09:55 Dose: 1,000 mg Thiamine HCl (Vitamin B1 Injection -) 250 mg IVPB TID [facility] Stop: 02/10/19 21:59 Last Admin: 02/08/19 07:08 Dose: 250 mg Umeclidinium/Vilanterol (Anoro Ellipta 62.5-25 Mcg Inh) 1 puff IH DAILY [facility] Last Admin: 02/07/19 09:55 Dose: Not Given - Objective Vital Signs: Vital Signs Temperature 97.1 F L 02/08/19 08:00 Pulse Rate 63 02/08/19 10:00 Respiratory Rate 21 H 02/08/19 10:00 Blood Pressure 108/45 L 02/08/19 10:00 O2 Sat by Pulse Oximetry (%) 99 02/08/19 09:00 Eyes: Yes: WNL, Conjunctiva Clear, EOM Intact HENT: Yes: WNL, Atraumatic, Normocephalic Neck: Yes: WNL, Supple, Trachea Midline Cardiovascular: Yes: WNL, Regular Rate and Rhythm Respiratory: Yes: Diminished Gastrointestinal: Yes: WNL, Normal Bowel Sounds Genitourinary: Yes: WNL Musculoskeletal: Yes: WNL Extremities: Yes: WNL Edema: Yes Edema: LLE: 1+, RLE: 1+ Integumentary: Yes: WNL Neurological: Yes: WNL, Alert, Oriented ...Motor Strength: WNL Psychiatric: Yes: WNL Labs: CBC, BMP 02/08/19 05:30 02/08/19 05:30 INR, PTT INR 2.34 (0.83-1.09) H 02/08/19 05:30 Assessment/Plan Septic Shock likely due to PNA R/O early ARDS Coagulopathy -> (?) liver dysfunction / congestion HTN DM Hypercholesterolemia COPD O2 dependent COPD CAD S/P CABG JARET on CPAP CKD Low clinical suspicion of CVA Resolving encephalopathy (?) Seizures Afib / Aflutter (?) ETOH abuse ABX per ID O2 as needed to maintain saturation, NIPPV as needed Aspiration precautions Follow INR Follow final cultures Strict I & O BD TX Requires ICU monitoring for pressors and tenuous respiratory status cc time spent 37 min
--- NOTE | 2019-02-08 13:59 | PN ---
Physical Exam: SUBJECTIVE: Patient seen this morning and has no complains. Tolerating nasal cannula, titrated off vasopressin overnight. OBJECTIVE: Vital Signs Temperature 97.1 F L 02/08/19 08:00 Pulse Rate 63 02/08/19 10:00 Respiratory Rate 21 H 02/08/19 10:00 Blood Pressure 108/45 L 02/08/19 10:00 O2 Sat by Pulse Oximetry (%) 99 02/08/19 09:00 GENERAL: The patient is awake, alert, and fully oriented, in no acute distress. HEAD: Normal with no signs of trauma. NECK: Trachea midline, full range of motion, supple. LUNGS: Breath sounds equal, clear to auscultation bilaterally, HEART: Regular rate and rhythm, S1, S2 without murmur, rub or gallop. ABDOMEN: Soft, nontender, nondistended, normoactive bowel sounds, EXTREMITIES: 2+ pulses, warm, well-perfused, no edema. PSYCH: Normal mood, normal affect. SKIN: Warm, dry, normal turgor, no rashes or lesions noted CBCD WBC 20.3 K/mm3 (4.0-10.0) H 02/08/19 05:30 RBC 2.68 M/mm3 (4.00-5.60) L 02/08/19 05:30 Hgb 8.1 GM/dL (11.7-16.9) L 02/08/19 05:30 Hct 25.8 % (35.4-49) L 02/08/19 05:30 MCV 96.2 fl (80-96) H 02/08/19 05:30 MCHC 31.6 g/dl (32.0-35.9) L 02/08/19 05:30 RDW 30.0 % (11.9-15.9) H 02/08/19 05:30 Plt Count 161 K/MM3 (134-434) 02/08/19 05:30 MPV 11.1 fl (7.5-11.1) 02/08/19 05:30 CMP Sodium 131 mmol/L (136-145) L 02/08/19 05:30 Potassium 4.6 mmol/L (3.5-5.1) 02/08/19 05:30 Chloride 98 mmol/L (98-107) 02/08/19 05:30 Carbon Dioxide 26 mmol/L (21-32) 02/08/19 05:30 Anion Gap 7 MMOL/L (8-16) L 02/08/19 05:30 BUN 95 mg/dL (7-18) H 02/08/19 05:30 Creatinine 3.1 mg/dL (0.55-1.3) H 02/08/19 05:30 Creat Clearance w eGFR 19.96 (>60) 02/08/19 05:30 Calcium 8.5 mg/dL (8.5-10.1) 02/08/19 05:30 Total Bilirubin 1.5 mg/dL (0.2-1) H 02/08/19 05:30 AST 239 U/L (15-37) H 02/08/19 05:30 ALT 456 U/L (13-61) H 02/08/19 05:30 Alkaline Phosphatase 64 U/L (45-117) 02/08/19 05:30 Total Protein 7.0 g/dl (6.4-8.2) 02/08/19 05:30 Albumin 2.8 g/dl (3.4-5.0) L 02/08/19 05:30 Active Medications Folic Acid (Folic Acid -) 1 mg PO DAILY [facility] Last Admin: 02/08/19 09:54 Dose: 1 mg Vasopressin 50 units/ Sodium (Chloride) 100 mls @ 4 mls/hr IVPB ASDIR [facility]; Protocol Last Titration: 02/08/19 10:23 Dose: 0 units/hr, 0 mls/hr Piperacillin Sod/Tazobactam (Sod 2.25 gm/ Dextrose) 50 mls @ 100 mls/hr IVPB Q8H-IV [facility]; Protocol Last Admin: 02/08/19 09:59 Dose: 100 mls/hr Insulin Aspart (Novolog Vial Sliding Scale -) 1 vial SQ ACHS [facility]; Protocol Last Admin: 02/08/19 11:51 Dose: 2 unit Insulin Detemir (Levemir Vial) 20 units SQ AM [facility] Last Admin: 02/08/19 07:08 Dose: 20 unit Ipratropium [place] (Atrovent 0.02% Nebulizer -) 1 amp NEB Q6H PRN PRN Reason: Dyspnea Stop: 02/10/19 18:09 Last Admin: 02/05/19 22:33 Dose: 1 amp Lidocaine (Lidoderm Patch -) 1 patch TP DAILY [facility] Last Admin: 02/08/19 11:51 Dose: 1 patch Metoprolol Succinate (Toprol Xl -) 100 mg PO BID [facility] Last Admin: 02/08/19 09:56 Dose: Not Given Metoprolol Tartrate (Lopressor Injection -) 5 mg IVPUSH Q4H PRN PRN Reason: HYPERTENSION Miscellaneous (Lidoderm Patch Removal) 1 each MC DAILY@2200 [facility] Last Admin: 02/07/19 21:24 Dose: 1 each Non-Formulary Medication (Linaclotide [Linzess]) 145 mcg PO DAILY [facility] Gjsyj-7-Adav Ethyl Esters (Lovaza -) 2 gm PO BID [facility] Last Admin: 02/08/19 09:54 Dose: 2 gm Polyethylene Glycol (Miralax (For Daily Use) -) 17 gm PO DAILY [facility] Last Admin: 02/08/19 09:55 Dose: Not Given Ranolazine (Ranexa -) 1,000 mg PO BID [facility] Last Admin: 02/08/19 09:55 Dose: 1,000 mg Thiamine HCl (Vitamin B1 Injection -) 250 mg IVPB TID [facility] Stop: 02/10/19 21:59 Last Admin: 02/08/19 07:08 Dose: 250 mg Umeclidinium/Vilanterol (Anoro Ellipta 62.5-25 Mcg Inh) 1 puff IH DAILY [facility] Last Admin: 02/07/19 09:55 Dose: Not Given ASSESSMENT/PLAN: 73 yo M h/o HTN, DM, hypercholesterolemia, COPD, chronic hypoxic respiratory failure on home O2, CAD s/p CABG, JARET, CKD, s/p code garcia on 02/06 @ 3:10pm transferred to ICU for AMS with persistent hypotension. 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 Cardio - hx HF pEF - continue eliquis, continue toprolol BID - hald amiodarone for elevated LFT's - ranolazine 1000 mg BID for angina Pulm - patient tolerating nasal cannula - keep O2 above 90 GI - continue folate and thiamine for alcohol usage - AST and ALT trending down - US: borderline hepatomegaly with coarse and dense echotexture suggestive of mild fatty infiltrate - CT: free intraperitoneal fluid, splenomegaly - continue bowel regime ID - septic shock resolved - continue Vancomycin and Zosyn - patient off vasopressin - Ucx, blood cx pending Renal - JANETH on CKD - Unknown baseline - Cont to trend BUN/Cr - Avoid nephrotoxic agent - Vanc trough Endo - hx DM - hold metformin - continue SS FEN - NS boluses as tolerated for hypotension; caution in setting of CHF - monitor lytes - NPO for now Prophy - on home eliquis Dispo: monitor off vasopressin, monitor BP can likely transfer tomorrow Visit type - Emergency Visit Emergency Visit: No - New Patient This patient is new to me today: Yes Date on this admission: 02/08/19 - Critical Care Critical Care patient: Yes Total Critical Care Time (in minutes): 40 Critical Care Statement: The care of this patient involved high complexity decision making to prevent further life threatening deterioration of the patient 's condition and/or to evaluate & treat vital organ system(s) failure or risk of failure.
--- NOTE | 2019-02-08 15:06 | HOSP ---
Subjective - Review of Symptoms Events since last encounter: Patient's cardiac stent coding educator card sent from patient's son show it's compatible with MRI. However, his son confirmed with patient's finisher polisher that Mr. Vergara's ICD device is NOT MRI compatible. Therefore, MRI cannot be performed. Physical Examination Vital Signs: Vital Signs Temperature 36.2 C L 02/08/19 08:00 Pulse Rate 63 02/08/19 10:00 Respiratory Rate 21 H 02/08/19 10:00 Blood Pressure 108/45 L 02/08/19 10:00 O2 Sat by Pulse Oximetry (%) 99 02/08/19 09:00 Labs: CBC, BMP 02/08/19 05:30 02/08/19 05:30 Visit type - Emergency Visit Emergency Visit: No - New Patient This patient is new to me today: No - Critical Care Critical Care patient: No
--- NOTE | 2019-02-08 15:09 | PN ---
Progress Note, Physician History of Present Illness: Pt seen and examined at bedside. He is more awake and alert today. - Current Medication List Current Medications: Active Medications Folic Acid (Folic Acid -) 1 mg PO DAILY [facility] Last Admin: 02/08/19 09:54 Dose: 1 mg Vasopressin 50 units/ Sodium (Chloride) 100 mls @ 4 mls/hr IVPB ASDIR [facility]; Protocol Last Titration: 02/08/19 10:23 Dose: 0 units/hr, 0 mls/hr Piperacillin Sod/Tazobactam (Sod 2.25 gm/ Dextrose) 50 mls @ 100 mls/hr IVPB Q8H-IV [facility]; Protocol Last Admin: 02/08/19 09:59 Dose: 100 mls/hr Insulin Aspart (Novolog Vial Sliding Scale -) 1 vial SQ ACHS [facility]; Protocol Last Admin: 02/08/19 11:51 Dose: 2 unit Insulin Detemir (Levemir Vial) 20 units SQ AM [facility] Last Admin: 02/08/19 07:08 Dose: 20 unit Ipratropium [place] (Atrovent 0.02% Nebulizer -) 1 amp NEB Q6H PRN PRN Reason: Dyspnea Stop: 02/10/19 18:09 Last Admin: 02/05/19 22:33 Dose: 1 amp Lidocaine (Lidoderm Patch -) 1 patch TP DAILY [facility] Last Admin: 02/08/19 11:51 Dose: 1 patch Metoprolol Succinate (Toprol Xl -) 100 mg PO BID [facility] Last Admin: 02/08/19 09:56 Dose: Not Given Metoprolol Tartrate (Lopressor Injection -) 5 mg IVPUSH Q4H PRN PRN Reason: HYPERTENSION Miscellaneous (Lidoderm Patch Removal) 1 each MC DAILY@2200 [facility] Last Admin: 02/07/19 21:24 Dose: 1 each Non-Formulary Medication (Linaclotide [Linzess]) 145 mcg PO DAILY [facility] Piwhe-4-Axcw Ethyl Esters (Lovaza -) 2 gm PO BID [facility] Last Admin: 02/08/19 09:54 Dose: 2 gm Polyethylene Glycol (Miralax (For Daily Use) -) 17 gm PO DAILY [facility] Last Admin: 02/08/19 09:55 Dose: Not Given Ranolazine (Ranexa -) 1,000 mg PO BID [facility] Last Admin: 02/08/19 09:55 Dose: 1,000 mg Thiamine HCl (Vitamin B1 Injection -) 250 mg IVPB TID [facility] Stop: 02/10/19 21:59 Last Admin: 02/08/19 07:08 Dose: 250 mg Umeclidinium/Vilanterol (Anoro Ellipta 62.5-25 Mcg Inh) 1 puff IH DAILY [facility] Last Admin: 02/07/19 09:55 Dose: Not Given - Objective Vital Signs: Vital Signs Temperature 97.1 F L 02/08/19 08:00 Pulse Rate 63 02/08/19 10:00 Respiratory Rate 21 H 02/08/19 10:00 Blood Pressure 108/45 L 02/08/19 10:00 O2 Sat by Pulse Oximetry (%) 99 02/08/19 09:00 Constitutional: Yes: Calm Eyes: Yes: Conjunctiva Clear HENT: Yes: Atraumatic Neck: Yes: Supple Cardiovascular: Yes: S1, S2 Respiratory: Yes: On Nasal O2 Gastrointestinal: Yes: Soft Genitourinary: Yes: Hinds Present Musculoskeletal: Yes: WNL Edema: Yes Edema: LLE: Trace, RLE: Trace Neurological: Yes: Oriented Psychiatric: Yes: Oriented Labs: CBC, BMP 02/08/19 05:30 02/08/19 05:30 INR, PTT INR 2.34 (0.83-1.09) H 02/08/19 05:30 Assessment/Plan Current Medications Generic Name Dose Route Start Last Admin Trade Name Alexis PRN Reason Stop Dose Admin Folic Acid 1 mg 02/02/19 10:00 02/08/19 09:54 Folic Acid - PO 1 mg DAILY [facility] Administration Vasopressin 50 units/ Sodium 100 mls @ 4 mls/hr 02/06/19 17:45 02/08/19 10:23 Chloride IVPB 0 units/hr ASDIR [facility] 0 mls/hr Titration Protocol 2 UNITS/HR Piperacillin Sod/Tazobactam 50 mls @ 100 mls/hr 02/07/19 13:45 02/08/19 09:59 Sod 2.25 gm/ Dextrose IVPB 100 mls/hr Q8H-IV [facility] Administration Protocol Insulin Aspart 1 vial 02/02/19 07:00 02/08/19 11:51 Novolog Vial Sliding Scale - SQ 2 unit ACHS [facility] Administration Protocol Insulin Detemir 20 units 02/02/19 08:15 02/08/19 07:08 Levemir Vial SQ 20 unit AM [facility] Administration Ipratropium [place] 1 amp 02/03/19 18:09 02/05/19 22:33 Atrovent 0.02% Nebulizer - NEB 02/10/19 18:09 1 amp Q6H PRN Administration Dyspnea Lidocaine 1 patch 02/03/19 11:45 02/08/19 11:51 Lidoderm Patch - TP 1 patch DAILY [facility] Administration Metoprolol Succinate 100 mg 02/07/19 01:42 02/08/19 09:56 Toprol Xl - PO Not Given BID [facility] Metoprolol Tartrate 5 mg 02/07/19 01:41 Lopressor Injection - IVPUSH Q4H PRN HYPERTENSION Miscellaneous 1 each 02/03/19 22:00 02/07/19 21:24 Lidoderm Patch Removal MC 1 each DAILY@2200 [facility] Administration Non-Formulary Medication 145 mcg 02/02/19 10:00 Linaclotide [Linzess] PO DAILY [facility] Hajpz-8-Brym Ethyl Esters 2 gm 02/02/19 22:00 02/08/19 09:54 Lovaza - PO 2 gm BID [facility] Administration Polyethylene Glycol 17 gm 02/02/19 10:00 02/08/19 09:55 Miralax (For Daily Use) - PO Not Given DAILY [facility] Ranolazine 1,000 mg 02/02/19 10:00 02/08/19 09:55 Ranexa - PO 1,000 mg BID [facility] Administration Thiamine HCl 250 mg 02/07/19 22:00 02/08/19 07:08 Vitamin B1 Injection - IVPB 02/10/19 21:59 250 mg TID [facility] Administration Umeclidinium/Vilanterol 1 puff 02/02/19 10:00 02/07/19 09:55 Anoro Ellipta 62.5-25 Mcg Inh IH Not Given DAILY [facility] Impression 1. CKD 2. HTN 3. DM 4. resp failure requiring bipap 5. anemia 6. CHF 7. JANETH Plan - renal function improving - urine output improving - monitor bp - will need to eventually restart diuretics - monitor pulse ox - keep arb on hold - pressors to a map of 65
[2019-02-08] MEDS: UMECLIDINIUM/VILANTEROL (ANORO) 62.5/25 MCG INHALER IH SCH (16:29)
--- NOTE | 2019-02-08 16:41 | PN ---
Progress Note (short form) - Note Progress Note: off pressors on nasal canulla alert Vital Signs Period Temp Pulse Resp BP Sys/Renteria Pulse Ox Last 24 Hr 97.1 F-97.9 F 63-75 20-22 96-118/37-60 99-100 cor-rrr lungs decreased bs at bases abd soft,nt ext no edema CBC, BMP 02/08/19 05:30 02/08/19 05:30 Microbiology 02/07/19 13:40 Blood - Peripheral Venous Blood Culture - Preliminary NO GROWTH OBTAINED AFTER 24 HOURS, INCUBATION TO CONTINUE FOR 4 DAYS. 02/07/19 13:47 Blood - Peripheral Venous Blood Culture - Preliminary NO GROWTH OBTAINED AFTER 24 HOURS, INCUBATION TO CONTINUE FOR 4 DAYS. 02/04/19 01:00 Blood - Peripheral Venous Blood Culture - Preliminary NO GROWTH OBTAINED AFTER 96 HOURS, INCUBATION TO CONTINUE FOR 1 DAYS. 02/04/19 01:00 Blood - Peripheral Venous Blood Culture - Preliminary NO GROWTH OBTAINED AFTER 96 HOURS, INCUBATION TO CONTINUE FOR 1 DAYS. 02/04/19 16:00 Urine - Urine Hinds Urine Culture - Final NO GROWTH OBTAINED 02/02/19 16:00 Sputum - Expectorated Gram Stain - Final 02/02/19 16:00 Sputum - Expectorated Sputum Culture - Final NORMAL RESPIRATORY HARLAN 02/04/19 16:00 Urine For Antigen Detection Legionella Antigen - Final 02/04/19 16:00 Urine For Antigen Detection Streptococcus pneumoniae Antigen (M - Final 02/03/19 20:20 Urine - Urine Hinds Urine Culture - Final NO GROWTH OBTAINED chest ct- bilateral patchy infiltrates abd/pelvis- peripancreatic fluid, cholelithiasis, no ocholycystitis, splenomegaly Current Medications Folic Acid (Folic Acid -) 1 mg PO DAILY [facility] Last Admin: 02/08/19 09:54 Dose: 1 mg Vasopressin 50 units/ Sodium (Chloride) 100 mls @ 4 mls/hr IVPB ASDIR [facility]; Protocol Last Titration: 02/08/19 10:23 Dose: 0 units/hr, 0 mls/hr Piperacillin Sod/Tazobactam (Sod 2.25 gm/ Dextrose) 50 mls @ 100 mls/hr IVPB Q8H-IV [facility]; Protocol Last Admin: 02/08/19 09:59 Dose: 100 mls/hr Insulin Aspart (Novolog Vial Sliding Scale -) 1 vial SQ ACHS [facility]; Protocol Last Admin: 02/08/19 11:51 Dose: 2 unit Insulin Detemir (Levemir Vial) 20 units SQ AM [facility] Last Admin: 02/08/19 07:08 Dose: 20 unit Ipratropium [place] (Atrovent 0.02% Nebulizer -) 1 amp NEB Q6H PRN PRN Reason: Dyspnea Stop: 02/10/19 18:09 Last Admin: 02/05/19 22:33 Dose: 1 amp Lidocaine (Lidoderm Patch -) 1 patch TP DAILY [facility] Last Admin: 02/08/19 11:51 Dose: 1 patch Metoprolol Succinate (Toprol Xl -) 100 mg PO BID [facility] Last Admin: 02/08/19 09:56 Dose: Not Given Metoprolol Tartrate (Lopressor Injection -) 5 mg IVPUSH Q4H PRN PRN Reason: HYPERTENSION Miscellaneous (Lidoderm Patch Removal) 1 each MC DAILY@2200 [facility] Last Admin: 02/07/19 21:24 Dose: 1 each Non-Formulary Medication (Linaclotide [Linzess]) 145 mcg PO DAILY [facility] Sapzg-8-Mvyy Ethyl Esters (Lovaza -) 2 gm PO BID [facility] Last Admin: 02/08/19 09:54 Dose: 2 gm Polyethylene Glycol (Miralax (For Daily Use) -) 17 gm PO DAILY [facility] Last Admin: 02/08/19 09:55 Dose: Not Given Ranolazine (Ranexa -) 1,000 mg PO BID [facility] Last Admin: 02/08/19 09:55 Dose: 1,000 mg Thiamine HCl (Vitamin B1 Injection -) 250 mg IVPB TID [facility] Stop: 02/10/19 21:59 Last Admin: 02/08/19 14:28 Dose: 250 mg Umeclidinium/Vilanterol (Anoro Ellipta 62.5-25 Mcg Inh) 1 puff IH DAILY [facility] Last Admin: 02/08/19 16:29 Dose: Not Given a/p leukocytosis persists hypotension resolved cannot r/o pneumonia in the setting of recent rib fracture and recent hospital admission chf copd ckd-improved abnl lfts repeat cultures, blood and urine pending continue zosyn d/w ICU residents Problem List - Problems (1) Fever Code(s): R50.9 - FEVER, UNSPECIFIED (2) Pneumonia Code(s): J18.9 - PNEUMONIA, UNSPECIFIED ORGANISM (3) Rib fractures Code(s): S22.39XA - FRACTURE OF ONE RIB, UNSP SIDE, INIT FOR CLOS FX (4) Acute on chronic diastolic (congestive) heart failure Code(s): I50.33 - ACUTE ON CHRONIC DIASTOLIC (CONGESTIVE) HEART FAILURE (5) COPD (chronic obstructive pulmonary disease) Code(s): J44.9 - CHRONIC OBSTRUCTIVE PULMONARY DISEASE, UNSPECIFIED (6) CKD (chronic kidney disease) Code(s): N18.9 - CHRONIC KIDNEY DISEASE, UNSPECIFIED
--- NOTE | 2019-02-08 17:56 | PN.GI ---
GI Progress Note Subjective: GI Note: NO GI complaints. Off pressors. LFTs coming down - Objective Vital Signs: Vital Signs Temperature 97.1 F L 02/08/19 08:00 Pulse Rate 63 02/08/19 16:00 Respiratory Rate 21 H 02/08/19 16:00 Blood Pressure 108/45 L 02/08/19 16:00 O2 Sat by Pulse Oximetry (%) 99 02/08/19 09:00 Laboratory Tests 02/02/19 02/04/19 02/05/19 01:04 05:30 06:00 Total Bilirubin 1.0 AST 615 H 300 H ALT 442 H 02/06/19 02/06/19 02/07/19 07:15 18:20 05:30 Total Bilirubin 1.8 H AST 611 H 427 H ALT 635 H 02/07/19 02/08/19 05:30 05:30 Total Bilirubin 1.5 H AST 239 H ALT 593 H 456 H Laboratory Tests 02/07/19 02/07/19 05:30 05:30 Iron 166 Iron Saturation 67 H Ferritin 7958.2 H Constitutional: Calm ...Auscultate: Yes: Normoactive Bowel Sounds ...Palpate: Yes: Soft, Other (nontender) Labs: CBC, BMP 02/08/19 05:30 02/08/19 05:30 INR, PTT INR 2.34 (0.83-1.09) H 02/08/19 05:30 Assessment/Plan Impression: 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 His elevated ferritin and high iron saturation suggest this disorder. Will need genetic hemochromatosis testing when can get pathologist to approve it ( gone for the weekend) Chronic constipation Plan: Follow LFTs, if they fail to normalize will need to repeat imaging Hemochromatosis genetic testing when can get approval Continue miralax and PPI Problem List - Problems (1) Abnormal liver function test Code(s): R94.5 - ABNORMAL RESULTS OF LIVER FUNCTION STUDIES (2) Gallstones Code(s): K80.20 - CALCULUS OF GALLBLADDER W/O CHOLECYSTITIS W/O OBSTRUCTION (3) Hx of CABG Code(s): Z95.1 - PRESENCE OF AORTOCORONARY BYPASS GRAFT (4) Fatty liver Code(s): K76.0 - FATTY (CHANGE OF) LIVER, NOT ELSEWHERE CLASSIFIED (5) Acute on chronic diastolic (congestive) heart failure Code(s): I50.33 - ACUTE ON CHRONIC DIASTOLIC (CONGESTIVE) HEART FAILURE (6) (HFpEF) heart failure with preserved ejection fraction Code(s): I50.30 - UNSPECIFIED DIASTOLIC (CONGESTIVE) HEART FAILURE (7) Atrial flutter Code(s): I48.92 - UNSPECIFIED ATRIAL FLUTTER (8) COPD (chronic obstructive pulmonary disease) Code(s): J44.9 - CHRONIC OBSTRUCTIVE PULMONARY DISEASE, UNSPECIFIED (9) History of heart artery stent Code(s): Z95.5 - PRESENCE OF CORONARY ANGIOPLASTY IMPLANT AND GRAFT (10) Presence of cardiac pacemaker Code(s): Z95.0 - PRESENCE OF CARDIAC PACEMAKER (11) Sleep apnea Code(s): G47.30 - SLEEP APNEA, UNSPECIFIED
[2019-02-08] MEDS ORDERED: PT OWN MED DRAWER 7, Y5N ONE ×2 (21:11→22:15)
[2019-02-08] MEDS: VASOPRESSIN 50 UNITS in SODIUM CHLORIDE 97.5 ML IVPB SCH (22:35)
[2019-02-08] MEDS: DOCUSATE SODIUM 100 MG CAPSULE (FP) PO PRN (22:45)
[2019-02-08] MEDS: LIDOCAINE PATCH REMOVAL MC SCH (22:45)
[2019-02-09] MEDS ORDERED: DEXTROSE 5%-WATER - 50 ML IVPB ONE ×3 (00:54→18:07)
[2019-02-09] MEDS ORDERED: PIPERACILLIN/TAZOBACTAM 2.25 GM VIAL IVPB ONE ×3 (00:54→18:07)
[2019-02-09] MEDS: PIPERACILLIN/TAZOB 2.25 GM 2.25 GM in DEXTROSE 5%-WATER - 50 ML IVPB SCH ×3 (01:31→18:08)
[2019-02-09] MEDS: THIAMINE HCL 200 MG/2 ML VIAL IVPB SCH ×3 (06:11→22:15)
[2019-02-09] MEDS: INSULIN SLIDING SCALE (NOVOLOG) 1 VIAL SQ SCH ×4 (06:11→22:22)
[2019-02-09] MEDS: INSULIN (LEVEMIR) 100 UNITS/ML UNITS SQ SCH (06:11)
[2019-02-09 06:53] LABS: ALBUMIN 2.9 g/dl (3.4-5.0); ALK PHOS 62 U/L (45-117); ANION GAP 5 MMOL/L (8-16); BILIRUBIN,TOTAL 1.5 mg/dL (0.2-1); BLOOD UREA NITROGEN 81 mg/dL (7-18); CALCIUM 8.3 mg/dL (8.5-10.1); CHLORIDE 103 mmol/L (98-107); CO2 30 mmol/L (21-32); CREATININE 2.7 mg/dL (0.55-1.3); GLUCOSE,RANDOM 181 mg/dL (74-106); MAGNESIUM 2.7 mg/dL (1.8-2.4); PHOSPHOROUS 3.5 mg/dL (2.5-4.9); POTASSIUM 4.4 mmol/L (3.5-5.1); SGOT/AST 161 U/L (15-37); SGPT/ALT 353 U/L (13-61); SODIUM 138 mmol/L (136-145); TOT PROT 7.1 g/dl (6.4-8.2)
[2019-02-09 06:59] LABS: HEMATOCRIT 24.6 % (35.4-49); MCH 31.3 pg (25.7-33.7); MCHC 32.5 g/dl (32.0-35.9); MEAN CELL VOLUME 96.2 fl (80-96); MEAN PLT VOLUME 10.9 fl (7.5-11.1); PLATELET COUNT 165 K/MM3 (134-434); RBC 2.56 M/mm3 (4.00-5.60); WHITE BLOOD COUNT 19.5 K/mm3 (4.0-10.0)
--- NOTE | 2019-02-09 09:19 | PN ---
Progress Note (short form) - Note Progress Note: more alert on nasal canulla, ate all his breakfast Vital Signs Period Temp Pulse Resp BP Sys/Renteria Pulse Ox Last 24 Hr 98.0 F-98.4 F 63-84 14-22 97-138/45-66 96-99 cor-rrr llungs decreased bs at bases abd soft,nt ext trace edema reddy with blood tinged urine CBC, BMP 02/09/19 05:30 02/09/19 05:30 Microbiology 02/04/19 01:00 Blood - Peripheral Venous Blood Culture - Final NO GROWTH AFTER 5 DAYS INCUBATION 02/04/19 01:00 Blood - Peripheral Venous Blood Culture - Final NO GROWTH AFTER 5 DAYS INCUBATION 02/07/19 13:40 Blood - Peripheral Venous Blood Culture - Preliminary NO GROWTH OBTAINED AFTER 24 HOURS, INCUBATION TO CONTINUE FOR 4 DAYS. 02/07/19 13:47 Blood - Peripheral Venous Blood Culture - Preliminary NO GROWTH OBTAINED AFTER 24 HOURS, INCUBATION TO CONTINUE FOR 4 DAYS. 02/04/19 16:00 Urine - Urine Reddy Urine Culture - Final NO GROWTH OBTAINED 02/02/19 16:00 Sputum - Expectorated Gram Stain - Final 02/02/19 16:00 Sputum - Expectorated Sputum Culture - Final NORMAL RESPIRATORY HARLAN 02/04/19 16:00 Urine For Antigen Detection Legionella Antigen - Final 02/04/19 16:00 Urine For Antigen Detection Streptococcus pneumoniae Antigen (M - Final 02/03/19 20:20 Urine - Urine Reddy Urine Culture - Final NO GROWTH OBTAINED chest ct- bilateral patchy infiltrates abd/pelvis- peripancreatic fluid, cholelithiasis, no cholycystitis, splenomegaly Current Medications Albuterol Sulfate (Ventolin 0.083% Nebulizer Soln -) 1 amp NEB Q4H PRN PRN Reason: SHORTNESS OF BREATH Docusate Sodium (Colace -) 100 mg PO Q12H PRN PRN Reason: CONSTIPATION Folic Acid (Folic Acid -) 1 mg PO DAILY [facility] Last Admin: 02/08/19 09:54 Dose: 1 mg Piperacillin Sod/Tazobactam (Sod 2.25 gm/ Dextrose) 50 mls @ 100 mls/hr IVPB Q8H-IV [facility]; Protocol Last Admin: 02/09/19 01:31 Dose: 100 mls/hr Insulin Aspart (Novolog Vial Sliding Scale -) 1 vial SQ ACHS [facility]; Protocol Last Admin: 02/09/19 06:11 Dose: 2 unit Insulin Detemir (Levemir Vial) 20 units SQ AM [facility] Last Admin: 02/09/19 06:11 Dose: 20 unit Lidocaine (Lidoderm Patch -) 1 patch TP DAILY [facility] Last Admin: 02/08/19 11:51 Dose: 1 patch Metoprolol Succinate (Toprol Xl -) 100 mg PO BID [facility] Last Admin: 02/08/19 09:56 Dose: Not Given Miscellaneous (Lidoderm Patch Removal) 1 each MC DAILY@2200 [facility] Last Admin: 02/08/19 22:45 Dose: 1 each Non-Formulary Medication (Linaclotide [Linzess]) 145 mcg PO DAILY [facility] Pkdva-9-Kddy Ethyl Esters (Lovaza -) 2 gm PO BID [facility] Last Admin: 02/08/19 09:54 Dose: 2 gm Polyethylene Glycol (Miralax (For Daily Use) -) 17 gm PO DAILY [facility] Last Admin: 02/08/19 09:55 Dose: Not Given Ranolazine (Ranexa -) 1,000 mg PO BID [facility] Last Admin: 02/08/19 09:55 Dose: 1,000 mg Thiamine HCl (Vitamin B1 Injection -) 250 mg IVPB TID [facility] Stop: 02/10/19 21:59 Last Admin: 02/09/19 06:11 Dose: 250 mg Umeclidinium/Vilanterol (Anoro Ellipta 62.5-25 Mcg Inh) 1 puff IH DAILY [facility] Last Admin: 02/08/19 16:29 Dose: Not Given a/p leukocytosis persists cannot r/o pneumonia in the setting of recent rib fracture and recent hospital admission chf copd ckd-improved abnl lfts improving- ?hepatic congestion continue zosyn for pneumonia Problem List - Problems (1) Fever Code(s): R50.9 - FEVER, UNSPECIFIED (2) Pneumonia Code(s): J18.9 - PNEUMONIA, UNSPECIFIED ORGANISM (3) Rib fractures Code(s): S22.39XA - FRACTURE OF ONE RIB, UNSP SIDE, INIT FOR CLOS FX (4) Acute on chronic diastolic (congestive) heart failure Code(s): I50.33 - ACUTE ON CHRONIC DIASTOLIC (CONGESTIVE) HEART FAILURE (5) COPD (chronic obstructive pulmonary disease) Code(s): J44.9 - CHRONIC OBSTRUCTIVE PULMONARY DISEASE, UNSPECIFIED (6) CKD (chronic kidney disease) Code(s): N18.9 - CHRONIC KIDNEY DISEASE, UNSPECIFIED
[2019-02-09] MEDS ORDERED: RANOLAZINE E.R. 500 MG TABLET (FP) ONE (09:36)
[2019-02-09] MEDS ORDERED: PT OWN MED DRAWER 7, Y5N ONE ×2 (09:38→22:41)
--- NOTE | 2019-02-09 10:02 | PN ---
Teaching Attending Note Name of Resident: Antonina Matson ATTENDING PHYSICIAN STATEMENT I saw and evaluated the patient. I reviewed the resident's note and discussed the case with the resident. I agree with the resident's findings and plan as documented. SUBJECTIVE: Patient seen and examined in the ICU. Awake and responsive on NC O2. Mildly tachypneic at rest. Currently off Vasopressin but BP has been marginal. Hematuria persists. Denies CP or SOB. Intake & Output 02/06/19 02/07/19 02/08/19 02/09/19 23:59 23:59 23:59 23:59 Intake Total 350 786 514 100 Output Total 300 1550 1600 1800 Balance 50 -764 -1086 -1700 Weight 223 lb 9.6 oz 223 lb 9 oz 223 lb Last Vital Signs Temp Pulse Resp BP Pulse Ox 98.0 F 71 22 H 112/63 96 02/09/19 06:00 02/09/19 08:00 02/09/19 08:00 02/09/19 08:00 02/09/19 08:00 Active Medications Albuterol Sulfate (Ventolin 0.083% Nebulizer Soln -) 1 amp NEB Q4H PRN PRN Reason: SHORTNESS OF BREATH Docusate Sodium (Colace -) 100 mg PO Q12H PRN PRN Reason: CONSTIPATION Folic Acid (Folic Acid -) 1 mg PO DAILY [facility] Last Admin: 02/08/19 09:54 Dose: 1 mg Piperacillin Sod/Tazobactam (Sod 2.25 gm/ Dextrose) 50 mls @ 100 mls/hr IVPB Q8H-IV [facility]; Protocol Last Admin: 02/09/19 01:31 Dose: 100 mls/hr Insulin Aspart (Novolog Vial Sliding Scale -) 1 vial SQ ACHS [facility]; Protocol Last Admin: 02/09/19 06:11 Dose: 2 unit Insulin Detemir (Levemir Vial) 20 units SQ AM [facility] Last Admin: 02/09/19 06:11 Dose: 20 unit Lidocaine (Lidoderm Patch -) 1 patch TP DAILY [facility] Last Admin: 02/08/19 11:51 Dose: 1 patch Metoprolol Succinate (Toprol Xl -) 100 mg PO BID [facility] Last Admin: 02/08/19 09:56 Dose: Not Given Miscellaneous (Lidoderm Patch Removal) 1 each MC DAILY@2200 [facility] Last Admin: 02/08/19 22:45 Dose: 1 each Non-Formulary Medication (Linaclotide [Linzess]) 145 mcg PO DAILY [facility] Ykzzl-4-Apnu Ethyl Esters (Lovaza -) 2 gm PO BID [facility] Last Admin: 02/08/19 09:54 Dose: 2 gm Polyethylene Glycol (Miralax (For Daily Use) -) 17 gm PO DAILY [facility] Last Admin: 02/08/19 09:55 Dose: Not Given Ranolazine (Ranexa -) 1,000 mg PO BID [facility] Last Admin: 02/08/19 09:55 Dose: 1,000 mg Thiamine HCl (Vitamin B1 Injection -) 250 mg IVPB TID [facility] Stop: 02/10/19 21:59 Last Admin: 02/09/19 06:11 Dose: 250 mg Umeclidinium/Vilanterol (Anoro Ellipta 62.5-25 Mcg Inh) 1 puff IH DAILY [facility] Last Admin: 02/08/19 16:29 Dose: Not Given Constitutional: Yes: Awake and responsive on NC O2, mildly tachypneic at rest HENT: Yes: Atraumatic, Normocephalic Cardiovascular: Yes: Regular Rate and Rhythm, S1, S2. No: Murmur Respiratory: Yes: On NC O2, bilateral rhonchi Gastrointestinal: Yes: Abdomen, Obese, Distention, Hepatomegaly. No: Tenderness Edema: No Neurological: Yes: Awake and alert, Non-focal Labs: Laboratory Results - last 24 hr 02/05/19 02/07/19 02/08/19 16:00 05:30 06:00 WBC RBC Hgb Hct MCV MCH MCHC RDW Plt Count MPV Sodium Potassium Chloride Carbon Dioxide Anion Gap BUN Creatinine Creat Clearance w eGFR POC Glucometer Random Glucose Calcium Phosphorus Magnesium Total Bilirubin AST ALT Alkaline Phosphatase Total Protein Albumin Urine Color Dk yellow Urine Appearance Turbid Urine pH 5.0 Ur Specific [place] 1.020 Urine Protein 2+ H Urine Glucose (UA) Negative Urine Ketones Negative Urine Blood 2+ H Urine Nitrite Negative Urine Bilirubin Negative Urine Urobilinogen 1.0 Ur Leukocyte Esterase 1+ H Urine WBC (Auto) 9 Urine Casts (Auto) 9 U Epithel Cells (Auto) 1.2 Urine Bacteria (Auto) 0.7 Ur Random Creatinine Ur Random Sodium KEVIN Screen Negative Smooth Musc &LUMBER DRIVER Intrp 9 Tiss Transglutamin IgG 6 H Tiss Transglutamin IgA 5 H Blood Type A POSITIVE Antibody Screen Positive Antibody Identification Lc Crossmatch See Detail 02/08/19 02/08/19 02/08/19 06:00 11:45 17:54 WBC RBC Hgb Hct MCV MCH MCHC RDW Plt Count MPV Sodium Potassium Chloride Carbon Dioxide Anion Gap BUN Creatinine Creat Clearance w eGFR POC Glucometer 176 138 Random Glucose Calcium Phosphorus Magnesium Total Bilirubin AST ALT Alkaline Phosphatase Total Protein Albumin Urine Color Urine Appearance Urine pH Ur Specific [place] Urine Protein Urine Glucose (UA) Urine Ketones Urine Blood Urine Nitrite Urine Bilirubin Urine Urobilinogen Ur Leukocyte Esterase Urine WBC (Auto) Urine Casts (Auto) U Epithel Cells (Auto) Urine Bacteria (Auto) Ur Random Creatinine 114 Ur Random Sodium 21 L KEVIN Screen Smooth Musc &LUMBER DRIVER Intrp Tiss Transglutamin IgG Tiss Transglutamin IgA Blood Type Antibody Screen Antibody Identification Crossmatch 02/09/19 02/09/19 02/09/19 05:30 05:30 06:04 WBC 19.5 H RBC 2.56 L Hgb 8.0 L Hct 24.6 L MCV 96.2 H MCH 31.3 MCHC 32.5 RDW 29.0 H Plt Count 165 MPV 10.9 Sodium 138 Potassium 4.4 Chloride 103 Carbon Dioxide 30 Anion Gap 5 L BUN 81 H Creatinine 2.7 H Creat Clearance w eGFR 23.41 POC Glucometer 181 Random Glucose 181 H Calcium 8.3 L Phosphorus 3.5 Magnesium 2.7 H Total Bilirubin 1.5 H AST 161 H ALT 353 H Alkaline Phosphatase 62 Total Protein 7.1 Albumin 2.9 L Urine Color Urine Appearance Urine pH Ur Specific [place] Urine Protein Urine Glucose (UA) Urine Ketones Urine Blood Urine Nitrite Urine Bilirubin Urine Urobilinogen Ur Leukocyte Esterase Urine WBC (Auto) Urine Casts (Auto) U Epithel Cells (Auto) Urine Bacteria (Auto) Ur Random Creatinine Ur Random Sodium KEVIN Screen Smooth Musc &LUMBER DRIVER Intrp Tiss Transglutamin IgG Tiss Transglutamin IgA Blood Type Antibody Screen Antibody Identification Crossmatch Assessment/Plan Septic Shock likely due to PNA R/O early ARDS Coagulopathy -> (?) liver dysfunction / congestion HTN DM Hypercholesterolemia COPD O2 dependent COPD CAD S/P CABG JARET on CPAP CKD Low clinical suspicion of CVA Resolving encephalopathy (?) Seizures Afib / Aflutter (?) ETOH abuse ABX per ID O2 as needed to maintain saturation, NIPPV as needed Aspiration precautions Follow INR Follow final cultures Strict I & O BD TX Requires ICU monitoring for possible pressors and tenuous respiratory status Dr Teran Critical care time spent in reviewing chart, evaluating patient and formulating plan - 36 minutes.
--- NOTE | 2019-02-09 10:05 | PN ---
Progress Note, Physician History of Present Illness: overnight pt was attempting to get out of bed several times without assistance and was not following commands. this morning he is calm, cooperative, oriented to person, place and date. denies complaints. vasopressin stopped yesterday, BP stable. - Current Medication List Current Medications: Active Medications Albuterol Sulfate (Ventolin 0.083% Nebulizer Soln -) 1 amp NEB Q4H PRN PRN Reason: SHORTNESS OF BREATH Docusate Sodium (Colace -) 100 mg PO Q12H PRN PRN Reason: CONSTIPATION Folic Acid (Folic Acid -) 1 mg PO DAILY [facility] Last Admin: 02/08/19 09:54 Dose: 1 mg Piperacillin Sod/Tazobactam (Sod 2.25 gm/ Dextrose) 50 mls @ 100 mls/hr IVPB Q8H-IV [facility]; Protocol Last Admin: 02/09/19 01:31 Dose: 100 mls/hr Insulin Aspart (Novolog Vial Sliding Scale -) 1 vial SQ ACHS [facility]; Protocol Last Admin: 02/09/19 06:11 Dose: 2 unit Insulin Detemir (Levemir Vial) 20 units SQ AM [facility] Last Admin: 02/09/19 06:11 Dose: 20 unit Lidocaine (Lidoderm Patch -) 1 patch TP DAILY [facility] Last Admin: 02/08/19 11:51 Dose: 1 patch Metoprolol Succinate (Toprol Xl -) 100 mg PO BID [facility] Last Admin: 02/08/19 09:56 Dose: Not Given Miscellaneous (Lidoderm Patch Removal) 1 each MC DAILY@2200 [facility] Last Admin: 02/08/19 22:45 Dose: 1 each Non-Formulary Medication (Linaclotide [Linzess]) 145 mcg PO DAILY [facility] Cujgq-3-Vghe Ethyl Esters (Lovaza -) 2 gm PO BID [facility] Last Admin: 02/08/19 09:54 Dose: 2 gm Polyethylene Glycol (Miralax (For Daily Use) -) 17 gm PO DAILY [facility] Last Admin: 02/08/19 09:55 Dose: Not Given Ranolazine (Ranexa -) 1,000 mg PO BID [facility] Last Admin: 02/08/19 09:55 Dose: 1,000 mg Thiamine HCl (Vitamin B1 Injection -) 250 mg IVPB TID [facility] Stop: 02/10/19 21:59 Last Admin: 02/09/19 06:11 Dose: 250 mg Umeclidinium/Vilanterol (Anoro Ellipta 62.5-25 Mcg Inh) 1 puff IH DAILY [facility] Last Admin: 02/08/19 16:29 Dose: Not Given - Objective Vital Signs: Vital Signs Temperature 98.0 F 02/09/19 06:00 Pulse Rate 71 02/09/19 08:00 Respiratory Rate 22 H 02/09/19 08:00 Blood Pressure 112/63 02/09/19 08:00 O2 Sat by Pulse Oximetry (%) 96 02/09/19 08:00 Constitutional: Yes: No Distress, Calm Eyes: Yes: PERRL, Other (left eye pre-existing deviation laterally.) HENT: Yes: Atraumatic, Normocephalic. No: Rhinnorhea, Thrush Neck: Yes: Supple, Trachea Midline Cardiovascular: Yes: Regular Rate and Rhythm, S1, S2 Labs: CBC, BMP 02/09/19 05:30 02/09/19 05:30 INR, PTT INR 2.34 (0.83-1.09) H 02/08/19 05:30 Assessment/Plan 73 yo M h/o HTN, DM, hypercholesterolemia, COPD, chronic hypoxic respiratory failure on home O2, CAD s/p CABG, JARET, CKD, s/p code garcia on 02/06 @ 3:10pm transferred to ICU for AMS with persistent hypotension. 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 trend uop - Vanc trough - Fluids, electrolytes, nutrition (FEN) - Infectious disease - Hematology - Gastrointestinal - continue folate and thiamine for alcohol usage, unclear about past usage, while documented in chart, pt denies use - AST and ALT trending down - US: borderline hepatomegaly with coarse and dense echotexture suggestive of mild fatty infiltrate - continue bowel regime - Endocrine NISS for DM - Prophylaxis on eliquis Dipo monitor for hypotension, if stable off vasopressin stable for nonicu monitoring.
[2019-02-09] MEDS: LIDOCAINE 5% TOPICAL PATCH TP SCH (10:26)
[2019-02-09] MEDS: FOLIC ACID 1 MG TABLET (FP) PO SCH (10:26)
[2019-02-09] MEDS: OMEGA-3 ACID ETHYL ESTERS (FATTY-ACIDS) 1 GM CAPSULE (FP) PO SCH ×2 (10:26→22:12)
[2019-02-09] MEDS: RANOLAZINE E.R. 1,000 MG TABLET (FP) PO SCH ×2 (10:27→22:13)
[2019-02-09] MEDS: POLYETHYLENE GLYCOL 3350 119 GM BTL PO SCH (10:29)
[2019-02-09] MEDS: UMECLIDINIUM/VILANTEROL (ANORO) 62.5/25 MCG INHALER IH SCH (11:40)
--- NOTE | 2019-02-09 13:03 | PN ---
Progress Note, Physician Chief Complaint: Cardiology f/u for Dr. Maddox History of Present Illness: No complaints, OOB to chair, remains in NSR. Guzman d/dayana today. - Current Medication List Current Medications: Active Medications Albuterol Sulfate (Ventolin 0.083% Nebulizer Soln -) 1 amp NEB Q4H PRN PRN Reason: SHORTNESS OF BREATH Docusate Sodium (Colace -) 100 mg PO Q12H PRN PRN Reason: CONSTIPATION Folic Acid (Folic Acid -) 1 mg PO DAILY [facility] Last Admin: 02/09/19 10:26 Dose: 1 mg Piperacillin Sod/Tazobactam (Sod 2.25 gm/ Dextrose) 50 mls @ 100 mls/hr IVPB Q8H-IV [facility]; Protocol Last Admin: 02/09/19 10:27 Dose: 100 mls/hr Insulin Aspart (Novolog Vial Sliding Scale -) 1 vial SQ ACHS [facility]; Protocol Last Admin: 02/09/19 12:16 Dose: 2 unit Insulin Detemir (Levemir Vial) 20 units SQ AM [facility] Last Admin: 02/09/19 06:11 Dose: 20 unit Lidocaine (Lidoderm Patch -) 1 patch TP DAILY [facility] Last Admin: 02/09/19 10:26 Dose: 1 patch Metoprolol Succinate (Toprol Xl -) 100 mg PO BID [facility] Last Admin: 02/09/19 10:27 Dose: 100 mg Miscellaneous (Lidoderm Patch Removal) 1 each MC DAILY@2200 [facility] Last Admin: 02/08/19 22:45 Dose: 1 each Non-Formulary Medication (Linaclotide [Linzess]) 145 mcg PO DAILY [facility] [id number]-[id number] Ethyl Esters (Lovaza -) 2 gm PO BID [facility] Last Admin: 02/09/19 10:26 Dose: 2 gm Polyethylene Glycol (Miralax (For Daily Use) -) 17 gm PO DAILY [facility] Last Admin: 02/09/19 10:29 Dose: 17 gm Ranolazine (Ranexa -) 1,000 mg PO BID [facility] Last Admin: 02/09/19 10:27 Dose: 1,000 mg Thiamine HCl (Vitamin B1 Injection -) 250 mg IVPB TID [facility] Stop: 02/10/19 21:59 Last Admin: 02/09/19 13:00 Dose: 250 mg Umeclidinium/Vilanterol (Anoro Ellipta 62.5-25 Mcg Inh) 1 puff IH DAILY [facility] Last Admin: 02/09/19 11:40 Dose: 1 puff - Objective Vital Signs: Vital Signs Temperature 97.7 F 02/09/19 10:00 Pulse Rate 71 02/09/19 12:00 Respiratory Rate 18 02/09/19 12:00 Blood Pressure 102/48 L 02/09/19 12:00 O2 Sat by Pulse Oximetry (%) 96 02/09/19 08:00 Constitutional: Yes: No Distress, Calm Neck: Yes: Supple Cardiovascular: Yes: Regular Rate and Rhythm Respiratory: Yes: Regular, Diminished, On Nasal O2 Gastrointestinal: Yes: Normal Bowel Sounds, Soft Edema: No Labs: CBC, BMP 02/09/19 05:30 02/09/19 05:30 INR, PTT INR 2.34 (0.83-1.09) H 02/08/19 05:30 - ....Imaging EKG: Report Reviewed (Tele: NSR) Problem List - Problems (1) Abnormal liver function test Code(s): R94.5 - ABNORMAL RESULTS OF LIVER FUNCTION STUDIES (2) Fatty liver Code(s): K76.0 - FATTY (CHANGE OF) LIVER, NOT ELSEWHERE CLASSIFIED (3) Hx of CABG Code(s): Z95.1 - PRESENCE OF AORTOCORONARY BYPASS GRAFT (4) Atrial flutter Code(s): I48.92 - UNSPECIFIED ATRIAL FLUTTER Qualifiers: Atrial flutter type: unspecified Qualified Code(s): I48.92 - Unspecified atrial flutter (5) HTN (hypertension) Code(s): I10 - ESSENTIAL (PRIMARY) HYPERTENSION Qualifiers: Hypertension type: essential hypertension Qualified Code(s): I10 - Essential (primary) hypertension (6) History of heart artery stent Code(s): Z95.5 - PRESENCE OF CORONARY ANGIOPLASTY IMPLANT AND GRAFT (7) Hypercholesterolemia Code(s): E78.00 - PURE HYPERCHOLESTEROLEMIA, UNSPECIFIED (8) Myocardial infarct, old Code(s): I25.2 - OLD MYOCARDIAL INFARCTION (9) Presence of cardiac pacemaker Code(s): Z95.0 - PRESENCE OF CARDIAC PACEMAKER (10) Sick sinus syndrome Code(s): I49.5 - SICK SINUS SYNDROME (11) Sleep apnea Code(s): G47.30 - SLEEP APNEA, UNSPECIFIED Qualifiers: Sleep apnea type: unspecified type Qualified Code(s): G47.30 - Sleep apnea , unspecified Assessment/Plan 1. Septic Shock likely due to PNA resolving 2. CAD post CABG/PCI/GERALD demand ischemic injury angina pectoris 3. Acute on chronic class I-II NYHA classification LV failure related to diastolic/systolic LV dysfunction, clinical decompensation 4. Paroxysmal atrial flutter with rapid ventricular response [id number] score of 5, now in NSR 5. Post prophylactic ICD implant 6. Hepatic congestion with coagulopathy HTN 7. DM 8. Hypercholesterolemia 9. O2-dependent COPD 10. CKD 11. Anemia 12. OSAS on cpap PLAN: 1. Abx course per ID, weaned off pressors, trend LFTs, INR 2. BD, O2 as needed to maintain saturation, NIPPV as needed 3. Continue Toprol XL 100 bid, Lovaza 2 bid, Ranexa 1000 bid
--- NOTE | 2019-02-09 13:36 | PN ---
Progress Note (short form) - Note Progress Note: Impression 1. CKD 2. HTN 3. DM 4. resp failure requiring bipap 5. anemia 6. CHF 7. JANETH Current Medications Albuterol Sulfate (Ventolin 0.083% Nebulizer Soln -) 1 amp NEB Q4H PRN PRN Reason: SHORTNESS OF BREATH Docusate Sodium (Colace -) 100 mg PO Q12H PRN PRN Reason: CONSTIPATION Folic Acid (Folic Acid -) 1 mg PO DAILY [facility] Last Admin: 02/09/19 10:26 Dose: 1 mg Piperacillin Sod/Tazobactam (Sod 2.25 gm/ Dextrose) 50 mls @ 100 mls/hr IVPB Q8H-IV [facility]; Protocol Last Admin: 02/09/19 10:27 Dose: 100 mls/hr Insulin Aspart (Novolog Vial Sliding Scale -) 1 vial SQ ACHS [facility]; Protocol Last Admin: 02/09/19 12:16 Dose: 2 unit Insulin Detemir (Levemir Vial) 20 units SQ AM [facility] Last Admin: 02/09/19 06:11 Dose: 20 unit Lidocaine (Lidoderm Patch -) 1 patch TP DAILY [facility] Last Admin: 02/09/19 10:26 Dose: 1 patch Metoprolol Succinate (Toprol Xl -) 100 mg PO BID [facility] Last Admin: 02/09/19 10:27 Dose: 100 mg Miscellaneous (Lidoderm Patch Removal) 1 each MC DAILY@2200 [facility] Last Admin: 02/08/19 22:45 Dose: 1 each Non-Formulary Medication (Linaclotide [Linzess]) 145 mcg PO DAILY [facility] Onaje-4-Rueg Ethyl Esters (Lovaza -) 2 gm PO BID [facility] Last Admin: 02/09/19 10:26 Dose: 2 gm Polyethylene Glycol (Miralax (For Daily Use) -) 17 gm PO DAILY [facility] Last Admin: 02/09/19 10:29 Dose: 17 gm Ranolazine (Ranexa -) 1,000 mg PO BID [facility] Last Admin: 02/09/19 10:27 Dose: 1,000 mg Thiamine HCl (Vitamin B1 Injection -) 250 mg IVPB TID [facility] Stop: 02/10/19 21:59 Last Admin: 02/09/19 13:00 Dose: 250 mg Umeclidinium/Vilanterol (Anoro Ellipta 62.5-25 Mcg Inh) 1 puff IH DAILY [facility] Last Admin: 02/09/19 11:40 Dose: 1 puff Last Vital Signs Temp Pulse Resp BP Pulse Ox 97.7 F 71 18 102/48 L 99 02/09/19 10:00 02/09/19 12:00 02/09/19 12:00 02/09/19 12:00 02/09/19 09:00 sitting in chair, somnolent Lungs clear anteriorly Heart soft sounds, 71 on monitor Abd soft Ext no edema CBC, BMP 02/09/19 05:30 02/09/19 05:30 IMP- renal function continues to improve no sign of fluid overload clinically but cxr not much improved yesterday
--- NOTE | 2019-02-09 17:53 | PN ---
Progress Note, Physician Chief Complaint: COPD Rib Fracture A flutter History of Present Illness: Previous notes and events reviewed awake and alert NAD denies chest pain and SOB on Bipap - Current Medication List Current Medications: Active Medications Albuterol Sulfate (Ventolin 0.083% Nebulizer Soln -) 1 amp NEB Q4H PRN PRN Reason: SHORTNESS OF BREATH Docusate Sodium (Colace -) 100 mg PO Q12H PRN PRN Reason: CONSTIPATION Folic Acid (Folic Acid -) 1 mg PO DAILY [facility] Last Admin: 02/09/19 10:26 Dose: 1 mg Piperacillin Sod/Tazobactam (Sod 2.25 gm/ Dextrose) 50 mls @ 100 mls/hr IVPB Q8H-IV [facility]; Protocol Last Admin: 02/09/19 10:27 Dose: 100 mls/hr Insulin Aspart (Novolog Vial Sliding Scale -) 1 vial SQ ACHS [facility]; Protocol Last Admin: 02/09/19 12:16 Dose: 2 unit Insulin Detemir (Levemir Vial) 20 units SQ AM [facility] Last Admin: 02/09/19 06:11 Dose: 20 unit Lidocaine (Lidoderm Patch -) 1 patch TP DAILY [facility] Last Admin: 02/09/19 10:26 Dose: 1 patch Metoprolol Succinate (Toprol Xl -) 100 mg PO BID [facility] Last Admin: 02/09/19 10:27 Dose: 100 mg Miscellaneous (Lidoderm Patch Removal) 1 each MC DAILY@2200 [facility] Last Admin: 02/08/19 22:45 Dose: 1 each Non-Formulary Medication (Linaclotide [Linzess]) 145 mcg PO DAILY [facility] Qmpty-9-Eiss Ethyl Esters (Lovaza -) 2 gm PO BID [facility] Last Admin: 02/09/19 10:26 Dose: 2 gm Polyethylene Glycol (Miralax (For Daily Use) -) 17 gm PO DAILY [facility] Last Admin: 02/09/19 10:29 Dose: 17 gm Ranolazine (Ranexa -) 1,000 mg PO BID [facility] Last Admin: 02/09/19 10:27 Dose: 1,000 mg Thiamine HCl (Vitamin B1 Injection -) 250 mg IVPB TID [facility] Stop: 02/10/19 21:59 Last Admin: 02/09/19 13:00 Dose: 250 mg Umeclidinium/Vilanterol (Anoro Ellipta 62.5-25 Mcg Inh) 1 puff IH DAILY [facility] Last Admin: 02/09/19 11:40 Dose: 1 puff - Objective Vital Signs: Vital Signs Temperature 97.6 F 02/09/19 16:00 Pulse Rate 72 02/09/19 16:00 Respiratory Rate 23 H 02/09/19 16:00 Blood Pressure 116/57 L 02/09/19 16:00 O2 Sat by Pulse Oximetry (%) 100 02/09/19 17:09 Constitutional: Yes: No Distress, Calm Eyes: Yes: Conjunctiva Clear HENT: Yes: Atraumatic Cardiovascular: Yes: Regular Rate and Rhythm Respiratory: Yes: On BiPap, Rhonchi Gastrointestinal: Yes: Normal Bowel Sounds, Soft, Distention Musculoskeletal: Yes: Muscle Weakness Extremities: Yes: WNL Edema: No Neurological: Yes: Alert, Pre-Existing Deficit Psychiatric: Yes: Alert Labs: CBC, BMP 02/09/19 05:30 02/09/19 05:30 INR, PTT INR 2.34 (0.83-1.09) H 02/08/19 05:30 Microbiology 02/09/19 12:30 Sputum - Expectorated Gram Stain - Final 02/07/19 13:47 Blood - Peripheral Venous Blood Culture - Preliminary NO GROWTH OBTAINED AFTER 48 HOURS, INCUBATION TO CONTINUE FOR 3 DAYS. 02/07/19 13:40 Blood - Peripheral Venous Blood Culture - Preliminary NO GROWTH OBTAINED AFTER 48 HOURS, INCUBATION TO CONTINUE FOR 3 DAYS. 02/08/19 06:00 Urine - Urine - Catheterized Urine Culture - Final NO GROWTH OBTAINED 02/04/19 01:00 Blood - Peripheral Venous Blood Culture - Final NO GROWTH AFTER 5 DAYS INCUBATION 02/04/19 01:00 Blood - Peripheral Venous Blood Culture - Final NO GROWTH AFTER 5 DAYS INCUBATION 02/04/19 16:00 Urine - Urine Hinds Urine Culture - Final NO GROWTH OBTAINED 02/02/19 16:00 Sputum - Expectorated Gram Stain - Final 02/02/19 16:00 Sputum - Expectorated Sputum Culture - Final NORMAL RESPIRATORY HARLAN 02/04/19 16:00 Urine For Antigen Detection Legionella Antigen - Final 02/04/19 16:00 Urine For Antigen Detection Streptococcus pneumoniae Antigen (M - Final 02/03/19 20:20 Urine - Urine Hinds Urine Culture - Final NO GROWTH OBTAINED Problem List - Problems (1) Fever Assessment/Plan: -ID on board -IV Zosyn -WBC 19.5 -BC and UC -pending sputum culture Code(s): R50.9 - FEVER, UNSPECIFIED (2) Rib fractures Assessment/Plan: -pain management Code(s): S22.39XA - FRACTURE OF ONE RIB, UNSP SIDE, INIT FOR CLOS FX (3) Atrial flutter Assessment/Plan: -tele monitoring -cardio on board -continue metoprolol Code(s): I48.92 - UNSPECIFIED ATRIAL FLUTTER Qualifiers: Atrial flutter type: unspecified Qualified Code(s): I48.92 - Unspecified atrial flutter (4) CKD (chronic kidney disease) Assessment/Plan: -BUN/Cr 81/2.7 -renal on board -monitor renal function Code(s): N18.9 - CHRONIC KIDNEY DISEASE, UNSPECIFIED (5) COPD (chronic obstructive pulmonary disease) Assessment/Plan: -pulm on board -Bipap -O2 via NC -keep SpO2 >90% -bronchodilators -Ellipta Code(s): J44.9 - CHRONIC OBSTRUCTIVE PULMONARY DISEASE, UNSPECIFIED (6) Diabetes Assessment/Plan: -BGM ACHS -Levemir + ISS -diabetic diet Code(s): E11.9 - TYPE 2 DIABETES MELLITUS WITHOUT COMPLICATIONS Qualifiers: Diabetes mellitus type: type 2 Assessment/Plan see problem list
[2019-02-09] MEDS: DOCUSATE SODIUM 100 MG CAPSULE (FP) PO PRN (22:12)
[2019-02-09] MEDS: LIDOCAINE PATCH REMOVAL MC SCH (22:12)
[2019-02-10] MEDS ORDERED: PIPERACILLIN/TAZOBACTAM 2.25 GM VIAL IVPB ONE ×4 (02:00→18:16)
[2019-02-10] MEDS ORDERED: DEXTROSE 5%-WATER - 50 ML IVPB ONE ×4 (02:00→18:16)
[2019-02-10] MEDS: PIPERACILLIN/TAZOB 2.25 GM 2.25 GM in DEXTROSE 5%-WATER - 50 ML IVPB SCH ×3 (02:10→18:16)
[2019-02-10] MEDS: THIAMINE HCL 200 MG/2 ML VIAL IVPB SCH ×2 (05:50→15:00)
[2019-02-10] MEDS: INSULIN SLIDING SCALE (NOVOLOG) 1 VIAL SQ SCH ×4 (06:11→23:16)
[2019-02-10] MEDS: INSULIN (LEVEMIR) 100 UNITS/ML UNITS SQ SCH (06:11)
[2019-02-10 06:27] LABS: INR 1.4 (0.83-1.09); PROTHROMBIN TIME (PATIENT) 16.6 SEC (9.7-13.0)
[2019-02-10 06:47] LABS: ALK PHOS 58 U/L (45-117); ANION GAP 4 MMOL/L (8-16); BILIRUBIN,TOTAL 1.4 mg/dL (0.2-1); BLOOD UREA NITROGEN 70 mg/dL (7-18); CALCIUM 8.5 mg/dL (8.5-10.1); CHLORIDE 103 mmol/L (98-107); CO2 29 mmol/L (21-32); CREATININE 2.3 mg/dL (0.55-1.3); GLUCOSE,RANDOM 151 mg/dL (74-106); MAGNESIUM 2.7 mg/dL (1.8-2.4); PHOSPHOROUS 3.2 mg/dL (2.5-4.9); POTASSIUM 4.6 mmol/L (3.5-5.1); SGOT/AST 113 U/L (15-37); SGPT/ALT 295 U/L (13-61); SODIUM 136 mmol/L (136-145); TOT PROT 7.4 g/dl (6.4-8.2)
[2019-02-10 07:24] LABS: BASO % 0.3 % (0-2.0); HEMATOCRIT 26.4 % (35.4-49); HEMOGLOBIN 8.4 GM/dL (11.7-16.9); LYMPH % 7.2 % (8-40); MCH 31.3 pg (25.7-33.7); MCHC 31.8 g/dl (32.0-35.9); MEAN CELL VOLUME 98.6 fl (80-96); MONO % 8.4 % (3.8-10.2); NEUT % 83.1 % (42.8-82.8); PLATELET COUNT 175 K/MM3 (134-434); RBC 2.67 M/mm3 (4.00-5.60); RDW 29.3 % (11.9-15.9); WHITE BLOOD COUNT 22.4 K/mm3 (4.0-10.0)
[2019-02-10 09:52] LABS: ANISOCYTOSIS 1+; MACROCYTOSIS 0; PLATELET ESTIMATE DECREASED
--- NOTE | 2019-02-10 10:17 | PN ---
Teaching Attending Note Name of Resident: Rhonda Schroeder ATTENDING PHYSICIAN STATEMENT I saw and evaluated the patient. I reviewed the resident's note and discussed the case with the resident. I agree with the resident's findings and plan as documented. SUBJECTIVE: Patient seen and examined in the ICU. Awake and responsive on NC O2. Mildly tachypneic at rest. Hemodynamics have remained stable off pressors. Hematuria persists, but appears less. Denies CP or SOB. Constitutional: Yes: Awake and interactive on NC O2, mildly tachypneic at rest HENT: Yes: Atraumatic, Normocephalic Cardiovascular: Yes: Regular Rate and Rhythm, S1, S2. No: Murmur Respiratory: Yes: On NC O2, bilateral rhonchi Gastrointestinal: Yes: Abdomen, Obese, Distention, Hepatomegaly. No: Tenderness Edema: No Neurological: Yes: Awake and alert, Non-focal Labs: Laboratory Results - last 24 hr 02/09/19 02/09/19 02/09/19 12:04 18:01 22:16 WBC RBC Hgb Hct MCV MCH MCHC RDW Plt Count MPV Absolute Neuts (auto) Neutrophils % Neutrophils % (Manual) Band Neutrophils % Lymphocytes % Lymphocytes % (Manual) Monocytes % Monocytes % (Manual) Eosinophils % Eosinophils % (Manual) Basophils % Basophils % (Manual) Myelocytes % (Man) Promyelocytes % (Man) Blast Cells % (Manual) Nucleated RBC % Metamyelocytes Hypochromia Platelet Estimate Polychromasia Poikilocytosis Anisocytosis Microcytosis Macrocytosis PT with INR INR Sodium Potassium Chloride Carbon Dioxide Anion Gap BUN Creatinine Creat Clearance w eGFR POC Glucometer 174 146 176 Random Glucose Calcium Phosphorus Magnesium Total Bilirubin AST ALT Alkaline Phosphatase Total Protein Albumin 02/10/19 02/10/19 02/10/19 05:30 05:30 05:30 WBC 22.4 H RBC 2.67 L Hgb 8.4 L Hct 26.4 L MCV 98.6 H MCH 31.3 MCHC 31.8 L RDW 29.3 H Plt Count 175 MPV 11.0 Absolute Neuts (auto) 18.6 H Neutrophils % 83.1 H Neutrophils % (Manual) 74.2 Band Neutrophils % 1.0 Lymphocytes % 7.2 L D Lymphocytes % (Manual) 6.2 L D Monocytes % 8.4 Monocytes % (Manual) 3 L Eosinophils % 1.0 D Eosinophils % (Manual) 0.0 Basophils % 0.3 Basophils % (Manual) 0.0 Myelocytes % (Man) 11 H D Promyelocytes % (Man) 0 Blast Cells % (Manual) 0 Nucleated RBC % 0 Metamyelocytes 3 H D Hypochromia 1+ Platelet Estimate Decreased Polychromasia 0 Poikilocytosis 1+ Anisocytosis 1+ Microcytosis 1+ Macrocytosis 0 PT with INR 16.60 H INR 1.40 H Sodium 136 Potassium 4.6 Chloride 103 Carbon Dioxide 29 Anion Gap 4 L BUN 70 H Creatinine 2.3 H Creat Clearance w eGFR 28.17 POC Glucometer Random Glucose 151 H Calcium 8.5 Phosphorus 3.2 Magnesium 2.7 H Total Bilirubin 1.4 H AST 113 H ALT 295 H Alkaline Phosphatase 58 Total Protein 7.4 Albumin 3.0 L 02/10/19 05:50 WBC RBC Hgb Hct MCV MCH MCHC RDW Plt Count MPV Absolute Neuts (auto) Neutrophils % Neutrophils % (Manual) Band Neutrophils % Lymphocytes % Lymphocytes % (Manual) Monocytes % Monocytes % (Manual) Eosinophils % Eosinophils % (Manual) Basophils % Basophils % (Manual) Myelocytes % (Man) Promyelocytes % (Man) Blast Cells % (Manual) Nucleated RBC % Metamyelocytes Hypochromia Platelet Estimate Polychromasia Poikilocytosis Anisocytosis Microcytosis Macrocytosis PT with INR INR Sodium Potassium Chloride Carbon Dioxide Anion Gap BUN Creatinine Creat Clearance w eGFR POC Glucometer 144 Random Glucose Calcium Phosphorus Magnesium Total Bilirubin AST ALT Alkaline Phosphatase Total Protein Albumin Assessment/Plan Septic Shock likely due to PNA R/O early ARDS Coagulopathy -> (?) liver dysfunction / congestion HTN DM Hypercholesterolemia COPD O2 dependent COPD CAD S/P CABG JARET on CPAP CKD Low clinical suspicion of CVA Resolving encephalopathy (?) Seizures Afib / Aflutter (?) ETOH abuse ABX per ID O2 as needed to maintain saturation, NIPPV as needed Aspiration precautions Follow INR Strict I & O BD TX 4W / 4S monitoring Dr Teran
--- NOTE | 2019-02-10 10:29 | PN ---
Physical Exam: SUBJECTIVE: Patient seen this morning and has no complaints. No acute events overnight. OBJECTIVE: Vital Signs Temperature 97.6 F 02/10/19 06:00 Pulse Rate 71 02/10/19 08:00 Respiratory Rate 24 H 02/10/19 08:00 Blood Pressure 109/53 L 02/10/19 08:00 O2 Sat by Pulse Oximetry (%) 100 02/10/19 08:00 GENERAL: The patient is awake, alert, and fully oriented, in no acute distress. On arturo LUNGS: Breath sounds equal, clear to auscultation bilaterally, HEART: Regular rate and rhythm, S1, S2 without murmur, rub or gallop. ABDOMEN: Soft, nontender, nondistended, normoactive bowel sounds, EXTREMITIES: 2+ pulses, warm, well-perfused, no edema. PSYCH: Normal mood, normal affect. SKIN: Warm, dry, normal turgor, no rashes or lesions noted CBCD WBC 22.4 K/mm3 (4.0-10.0) H 02/10/19 05:30 RBC 2.67 M/mm3 (4.00-5.60) L 02/10/19 05:30 Hgb 8.4 GM/dL (11.7-16.9) L 02/10/19 05:30 Hct 26.4 % (35.4-49) L 02/10/19 05:30 MCV 98.6 fl (80-96) H 02/10/19 05:30 MCHC 31.8 g/dl (32.0-35.9) L 02/10/19 05:30 RDW 29.3 % (11.9-15.9) H 02/10/19 05:30 Plt Count 175 K/MM3 (134-434) 02/10/19 05:30 MPV 11.0 fl (7.5-11.1) 02/10/19 05:30 CMP Sodium 136 mmol/L (136-145) 02/10/19 05:30 Potassium 4.6 mmol/L (3.5-5.1) 02/10/19 05:30 Chloride 103 mmol/L (98-107) 02/10/19 05:30 Carbon Dioxide 29 mmol/L (21-32) 02/10/19 05:30 Anion Gap 4 MMOL/L (8-16) L 02/10/19 05:30 BUN 70 mg/dL (7-18) H 02/10/19 05:30 Creatinine 2.3 mg/dL (0.55-1.3) H 02/10/19 05:30 Creat Clearance w eGFR 28.17 (>60) 02/10/19 05:30 Calcium 8.5 mg/dL (8.5-10.1) 02/10/19 05:30 Total Bilirubin 1.4 mg/dL (0.2-1) H 02/10/19 05:30 AST 113 U/L (15-37) H 02/10/19 05:30 ALT 295 U/L (13-61) H 02/10/19 05:30 Alkaline Phosphatase 58 U/L (45-117) 02/10/19 05:30 Total Protein 7.4 g/dl (6.4-8.2) 02/10/19 05:30 Albumin 3.0 g/dl (3.4-5.0) L 02/10/19 05:30 Active Medications Albuterol Sulfate (Ventolin 0.083% Nebulizer Soln -) 1 amp NEB Q4H PRN PRN Reason: SHORTNESS OF BREATH Docusate Sodium (Colace -) 100 mg PO Q12H PRN PRN Reason: CONSTIPATION Last Admin: 02/09/19 22:12 Dose: 100 mg Folic Acid (Folic Acid -) 1 mg PO DAILY [facility] Last Admin: 02/09/19 10:26 Dose: 1 mg Guaifenesin (Mucinex -) 600 mg PO BID [facility] Piperacillin Sod/Tazobactam (Sod 2.25 gm/ Dextrose) 50 mls @ 100 mls/hr IVPB Q8H-IV [facility]; Protocol Last Admin: 02/10/19 02:10 Dose: 100 mls/hr Insulin Aspart (Novolog Vial Sliding Scale -) 1 vial SQ ACHS [facility]; Protocol Last Admin: 02/10/19 06:11 Dose: Not Given Insulin Detemir (Levemir Vial) 20 units SQ AM [facility] Last Admin: 02/10/19 06:11 Dose: 20 unit Lidocaine (Lidoderm Patch -) 1 patch TP DAILY [facility] Last Admin: 02/09/19 10:26 Dose: 1 patch Metoprolol Succinate (Toprol Xl -) 100 mg PO BID [facility] Last Admin: 02/09/19 22:15 Dose: 100 mg Miscellaneous (Lidoderm Patch Removal) 1 each MC DAILY@2200 [facility] Last Admin: 02/09/19 22:12 Dose: 1 each Non-Formulary Medication (Linaclotide [Linzess]) 145 mcg PO DAILY [facility] Luyst-0-Adwm Ethyl Esters (Lovaza -) 2 gm PO BID [facility] Last Admin: 02/09/19 22:12 Dose: 2 gm Polyethylene Glycol (Miralax (For Daily Use) -) 17 gm PO DAILY [facility] Last Admin: 02/09/19 10:29 Dose: 17 gm Ranolazine (Ranexa -) 1,000 mg PO BID [facility] Last Admin: 02/09/19 22:13 Dose: 1,000 mg Thiamine HCl (Vitamin B1 Injection -) 250 mg IVPB TID [facility] Stop: 02/10/19 21:59 Last Admin: 02/10/19 05:50 Dose: 250 mg Umeclidinium/Vilanterol (Anoro Ellipta 62.5-25 Mcg Inh) 1 puff IH DAILY [facility] Last Admin: 02/09/19 11:40 Dose: 1 puff ASSESSMENT/PLAN: 73 yo M h/o HTN, DM, hypercholesterolemia, COPD, chronic hypoxic respiratory failure on home O2, CAD s/p CABG, JARET, CKD,who is here for septic shock which has resolved. 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 Cardio - hx HF pEF - continue eliquis, continue toprolol BID - hald amiodarone for elevated LFT's ( trending down, reconsider restarting) - ranolazine 1000 mg BID for angina Pulm - patient tolerating nasal cannula - keep O2 above 90 GI - continue folate and thiamine for alcohol usage - AST and ALT trending down - US: borderline hepatomegaly with coarse and dense echotexture suggestive of mild fatty infiltrate - CT: free intraperitoneal fluid, splenomegaly - continue bowel regime ID - septic shock resolved - continue Zosyn - patient off vasopressin - Ucx, blood cx negative Renal - JANETH on CKD - Unknown baseline - Cont to trend BUN/Cr - Avoid nephrotoxic agent Endo - hx DM - hold metformin - continue SS FEN - monitor lytes - diabetic diet Prophy - on home eliquis Dispo: patient has been stable, can be monitored on tele Visit type - Emergency Visit Emergency Visit: No - New Patient This patient is new to me today: No - Critical Care Critical Care patient: Yes Total Critical Care Time (in minutes): 37 Critical Care Statement: The care of this patient involved high complexity decision making to prevent further life threatening deterioration of the patient 's condition and/or to evaluate & treat vital organ system(s) failure or risk of failure.
[2019-02-10] MEDS ORDERED: RANOLAZINE E.R. 500 MG TABLET (FP) ONE ×2 (10:34→21:27)
[2019-02-10] MEDS ORDERED: PT OWN MED DRAWER 7, Y5N ONE (10:35)
[2019-02-10] MEDS: POLYETHYLENE GLYCOL 3350 119 GM BTL PO SCH (10:38)
[2019-02-10] MEDS: LIDOCAINE 5% TOPICAL PATCH TP SCH (10:39)
[2019-02-10] MEDS: OMEGA-3 ACID ETHYL ESTERS (FATTY-ACIDS) 1 GM CAPSULE (FP) PO SCH ×2 (10:40→21:45)
[2019-02-10] MEDS: RANOLAZINE E.R. 1,000 MG TABLET (FP) PO SCH ×2 (10:40→21:46)
[2019-02-10] MEDS: FOLIC ACID 1 MG TABLET (FP) PO SCH (10:41)
[2019-02-10] MEDS: UMECLIDINIUM/VILANTEROL (ANORO) 62.5/25 MCG INHALER IH SCH (10:41)
[2019-02-10] MEDS: guaiFENesin 600 MG TABLET.ER (FP) PO SCH ×2 (10:41→21:45)
--- NOTE | 2019-02-10 11:03 | PN ---
Progress Note, Physician - Current Medication List Current Medications: Active Medications Albuterol Sulfate (Ventolin 0.083% Nebulizer Soln -) 1 amp NEB Q4H PRN PRN Reason: SHORTNESS OF BREATH Docusate Sodium (Colace -) 100 mg PO Q12H PRN PRN Reason: CONSTIPATION Last Admin: 02/09/19 22:12 Dose: 100 mg Folic Acid (Folic Acid -) 1 mg PO DAILY [facility] Last Admin: 02/10/19 10:41 Dose: 1 mg Guaifenesin (Mucinex -) 600 mg PO BID [facility] Last Admin: 02/10/19 10:41 Dose: 600 mg Piperacillin Sod/Tazobactam (Sod 2.25 gm/ Dextrose) 50 mls @ 100 mls/hr IVPB Q8H-IV [facility]; Protocol Last Admin: 02/10/19 10:41 Dose: 100 mls/hr Insulin Aspart (Novolog Vial Sliding Scale -) 1 vial SQ ACHS [facility]; Protocol Last Admin: 02/10/19 06:11 Dose: Not Given Insulin Detemir (Levemir Vial) 20 units SQ AM [facility] Last Admin: 02/10/19 06:11 Dose: 20 unit Lidocaine (Lidoderm Patch -) 1 patch TP DAILY [facility] Last Admin: 02/10/19 10:39 Dose: 1 patch Metoprolol Succinate (Toprol Xl -) 100 mg PO BID [facility] Last Admin: 02/10/19 10:40 Dose: 100 mg Miscellaneous (Lidoderm Patch Removal) 1 each MC DAILY@2200 [facility] Last Admin: 02/09/19 22:12 Dose: 1 each Non-Formulary Medication (Linaclotide [Linzess]) 145 mcg PO DAILY [facility] Cstyd-3-Qpzp Ethyl Esters (Lovaza -) 2 gm PO BID [facility] Last Admin: 02/10/19 10:40 Dose: 2 gm Polyethylene Glycol (Miralax (For Daily Use) -) 17 gm PO DAILY [facility] Last Admin: 02/10/19 10:38 Dose: 17 gm Ranolazine (Ranexa -) 1,000 mg PO BID [facility] Last Admin: 02/10/19 10:40 Dose: 1,000 mg Thiamine HCl (Vitamin B1 Injection -) 250 mg IVPB TID [facility] Stop: 02/10/19 21:59 Last Admin: 02/10/19 05:50 Dose: 250 mg Umeclidinium/Vilanterol (Anoro Ellipta 62.5-25 Mcg Inh) 1 puff IH DAILY [facility] Last Admin: 02/10/19 10:41 Dose: 1 puff - Objective Vital Signs: Vital Signs Temperature 97.6 F 02/10/19 06:00 Pulse Rate 71 02/10/19 08:00 Respiratory Rate 24 H 02/10/19 08:00 Blood Pressure 109/53 L 02/10/19 08:00 O2 Sat by Pulse Oximetry (%) 100 02/10/19 08:00 Cardiovascular: Yes: S1, S2 Respiratory: Yes: Regular, CTA Bilaterally Gastrointestinal: Yes: Normal Bowel Sounds, Soft. No: Tenderness Labs: CBC, BMP 02/10/19 05:30 02/10/19 05:30 INR, PTT INR 1.40 (0.83-1.09) H 02/10/19 05:30 Assessment/Plan - Problems (1) Fever Assessment/Plan: Resolved leukocytosis persists ID on board iv abx- per ID Microbiology 02/04/19 16:00 Urine For Antigen Detection Legionella Antigen - Final 02/04/19 16:00 Urine For Antigen Detection Streptococcus pneumoniae Antigen (M - Final 02/04/19 16:00 Urine - Urine Hinds Urine Culture - Final NO GROWTH OBTAINED 02/03/19 20:20 Urine - Urine Hinds Urine Culture - Final NO GROWTH OBTAINED 02/02/19 16:00 Sputum - Expectorated Gram Stain - Final 02/02/19 16:00 Sputum - Expectorated Sputum Culture - Final NORMAL RESPIRATORY HARLAN 02/04/19 01:00 Blood - Peripheral Venous Blood Culture - Preliminary NO GROWTH OBTAINED AFTER 72 HOURS, INCUBATION TO CONTINUE FOR 2 DAYS. 02/04/19 01:00 Blood - Peripheral Venous Blood Culture - Preliminary NO GROWTH OBTAINED AFTER 72 HOURS, INCUBATION TO CONTINUE FOR 2 DAYS. lactic acid trending down Code(s): R50.9 - FEVER, UNSPECIFIED (2) Rib fractures Assessment/Plan: pain control Code(s): S22.39XA - FRACTURE OF ONE RIB, UNSP SIDE, INIT FOR CLOS FX (3) Atrial flutter Assessment/Plan: amiodarone stopped bc of increase lft refused synchronized ERIKA cardioversion toprol Code(s): I48.92 - UNSPECIFIED ATRIAL FLUTTER (4) CKD (chronic kidney disease) Code(s): N18.9 - CHRONIC KIDNEY DISEASE, UNSPECIFIED (5) Diabetes Assessment/Plan: iinsulin bgm Code(s): E11.9 - TYPE 2 DIABETES MELLITUS WITHOUT COMPLICATIONS Qualifiers: Diabetes mellitus type: type 2 (6) COPD (chronic obstructive pulmonary disease) Assessment/Plan: bipap oxygen Code(s): J44.9 - CHRONIC OBSTRUCTIVE PULMONARY DISEASE, UNSPECIFIED (7) Leukocytosis Assessment/Plan: see above hem consult
[2019-02-10] MEDS: ALBUTEROL SO4 0.083% IH SOL 2.5 MG/3 ML VIAL.NEB. NEB PRN ×2 (11:06→19:20)
--- NOTE | 2019-02-10 13:39 | PN ---
Progress Note (short form) - Note Progress Note: Impression 1. CKD 2. HTN 3. DM 4. resp failure requiring bipap 5. anemia 6. CHF 7. JANETH Current Medications Albuterol Sulfate (Ventolin 0.083% Nebulizer Soln -) 1 amp NEB Q4H PRN PRN Reason: SHORTNESS OF BREATH Last Admin: 02/10/19 11:06 Dose: 1 amp Docusate Sodium (Colace -) 100 mg PO Q12H PRN PRN Reason: CONSTIPATION Last Admin: 02/09/19 22:12 Dose: 100 mg Folic Acid (Folic Acid -) 1 mg PO DAILY [facility] Last Admin: 02/10/19 10:41 Dose: 1 mg Guaifenesin (Mucinex -) 600 mg PO BID [facility] Last Admin: 02/10/19 10:41 Dose: 600 mg Piperacillin Sod/Tazobactam (Sod 2.25 gm/ Dextrose) 50 mls @ 100 mls/hr IVPB Q8H-IV [facility]; Protocol Last Admin: 02/10/19 10:41 Dose: 100 mls/hr Insulin Aspart (Novolog Vial Sliding Scale -) 1 vial SQ ACHS [facility]; Protocol Last Admin: 02/10/19 12:10 Dose: 4 unit Insulin Detemir (Levemir Vial) 20 units SQ AM [facility] Last Admin: 02/10/19 06:11 Dose: 20 unit Lidocaine (Lidoderm Patch -) 1 patch TP DAILY [facility] Last Admin: 02/10/19 10:39 Dose: 1 patch Metoprolol Succinate (Toprol Xl -) 100 mg PO BID [facility] Last Admin: 02/10/19 10:40 Dose: 100 mg Miscellaneous (Lidoderm Patch Removal) 1 each MC DAILY@2200 [facility] Last Admin: 02/09/19 22:12 Dose: 1 each Non-Formulary Medication (Linaclotide [Linzess]) 145 mcg PO DAILY [facility] Iavil-4-Hbza Ethyl Esters (Lovaza -) 2 gm PO BID [facility] Last Admin: 02/10/19 10:40 Dose: 2 gm Polyethylene Glycol (Miralax (For Daily Use) -) 17 gm PO DAILY [facility] Last Admin: 02/10/19 10:38 Dose: 17 gm Ranolazine (Ranexa -) 1,000 mg PO BID [facility] Last Admin: 02/10/19 10:40 Dose: 1,000 mg Thiamine HCl (Vitamin B1 Injection -) 250 mg IVPB TID [facility] Stop: 02/10/19 21:59 Last Admin: 02/10/19 05:50 Dose: 250 mg Umeclidinium/Vilanterol (Anoro Ellipta 62.5-25 Mcg Inh) 1 puff IH DAILY [facility] Last Admin: 02/10/19 10:41 Dose: 1 puff Last Vital Signs Temp Pulse Resp BP Pulse Ox 97.6 F 72 17 110/46 L 100 02/10/19 10:00 02/10/19 12:00 02/10/19 12:00 02/10/19 12:00 02/10/19 11:43 Intake & Output 02/09/19 02/10/19 02/10/19 23:59 07:59 15:59 Intake Total 920 280 550 Output Total 400 450 350 Balance 520 -170 200 Weight 227 lb 12.8 oz sitting in chair, somnolent Lungs clear anteriorly Heart soft sounds, 71 on monitor Abd soft Ext no edema CBC, BMP 02/10/19 05:30 02/10/19 05:30 CBC, BMP 02/09/19 05:30 02/09/19 05:30 IMP- renal function continues to improve today again hemodynamically more stable Continue current rx
--- NOTE | 2019-02-10 14:40 | PN ---
Progress Note, Physician Chief Complaint: Cardiology f/u for Dr. Maddox History of Present Illness: No complaints, OOB to chair, remains in NSR. - Current Medication List Current Medications: Active Medications Albuterol Sulfate (Ventolin 0.083% Nebulizer Soln -) 1 amp NEB Q4H PRN PRN Reason: SHORTNESS OF BREATH Last Admin: 02/10/19 11:06 Dose: 1 amp Docusate Sodium (Colace -) 100 mg PO Q12H PRN PRN Reason: CONSTIPATION Last Admin: 02/09/19 22:12 Dose: 100 mg Folic Acid (Folic Acid -) 1 mg PO DAILY [facility] Last Admin: 02/10/19 10:41 Dose: 1 mg Guaifenesin (Mucinex -) 600 mg PO BID [facility] Last Admin: 02/10/19 10:41 Dose: 600 mg Piperacillin Sod/Tazobactam (Sod 2.25 gm/ Dextrose) 50 mls @ 100 mls/hr IVPB Q8H-IV [facility]; Protocol Last Admin: 02/10/19 10:41 Dose: 100 mls/hr Insulin Aspart (Novolog Vial Sliding Scale -) 1 vial SQ ACHS [facility]; Protocol Last Admin: 02/10/19 12:10 Dose: 4 unit Insulin Detemir (Levemir Vial) 20 units SQ AM [facility] Last Admin: 02/10/19 06:11 Dose: 20 unit Lidocaine (Lidoderm Patch -) 1 patch TP DAILY [facility] Last Admin: 02/10/19 10:39 Dose: 1 patch Metoprolol Succinate (Toprol Xl -) 100 mg PO BID [facility] Last Admin: 02/10/19 10:40 Dose: 100 mg Miscellaneous (Lidoderm Patch Removal) 1 each MC DAILY@2200 [facility] Last Admin: 02/09/19 22:12 Dose: 1 each Non-Formulary Medication (Linaclotide [Linzess]) 145 mcg PO DAILY [facility] Fsbch-4-Bhdf Ethyl Esters (Lovaza -) 2 gm PO BID [facility] Last Admin: 02/10/19 10:40 Dose: 2 gm Polyethylene Glycol (Miralax (For Daily Use) -) 17 gm PO DAILY [facility] Last Admin: 02/10/19 10:38 Dose: 17 gm Ranolazine (Ranexa -) 1,000 mg PO BID [facility] Last Admin: 02/10/19 10:40 Dose: 1,000 mg Thiamine HCl (Vitamin B1 Injection -) 250 mg IVPB TID [facility] Stop: 02/10/19 21:59 Last Admin: 02/10/19 05:50 Dose: 250 mg Umeclidinium/Vilanterol (Anoro Ellipta 62.5-25 Mcg Inh) 1 puff IH DAILY [facility] Last Admin: 02/10/19 10:41 Dose: 1 puff - Objective Vital Signs: Vital Signs Temperature 97.6 F 02/10/19 10:00 Pulse Rate 72 02/10/19 12:00 Respiratory Rate 17 02/10/19 12:00 Blood Pressure 110/46 L 02/10/19 12:00 O2 Sat by Pulse Oximetry (%) 100 02/10/19 11:43 Constitutional: Yes: No Distress, Calm Neck: Yes: Supple Cardiovascular: Yes: Regular Rate and Rhythm Respiratory: Yes: Regular, Diminished Gastrointestinal: Yes: Normal Bowel Sounds, Soft Edema: No Labs: CBC, BMP 02/10/19 05:30 02/10/19 05:30 INR, PTT INR 1.40 (0.83-1.09) H 02/10/19 05:30 Problem List - Problems (1) Abnormal liver function test Code(s): R94.5 - ABNORMAL RESULTS OF LIVER FUNCTION STUDIES (2) Fatty liver Code(s): K76.0 - FATTY (CHANGE OF) LIVER, NOT ELSEWHERE CLASSIFIED (3) Hx of CABG Code(s): Z95.1 - PRESENCE OF AORTOCORONARY BYPASS GRAFT (4) Atrial flutter Code(s): I48.92 - UNSPECIFIED ATRIAL FLUTTER Qualifiers: Atrial flutter type: unspecified Qualified Code(s): I48.92 - Unspecified atrial flutter (5) HTN (hypertension) Code(s): I10 - ESSENTIAL (PRIMARY) HYPERTENSION Qualifiers: Hypertension type: essential hypertension Qualified Code(s): I10 - Essential (primary) hypertension (6) History of heart artery stent Code(s): Z95.5 - PRESENCE OF CORONARY ANGIOPLASTY IMPLANT AND GRAFT (7) Hypercholesterolemia Code(s): E78.00 - PURE HYPERCHOLESTEROLEMIA, UNSPECIFIED (8) Myocardial infarct, old Code(s): I25.2 - OLD MYOCARDIAL INFARCTION (9) Presence of cardiac pacemaker Code(s): Z95.0 - PRESENCE OF CARDIAC PACEMAKER (10) Sick sinus syndrome Code(s): I49.5 - SICK SINUS SYNDROME (11) Sleep apnea Code(s): G47.30 - SLEEP APNEA, UNSPECIFIED Qualifiers: Sleep apnea type: unspecified type Qualified Code(s): G47.30 - Sleep apnea , unspecified Assessment/Plan 1. Post septic shock likely due to PNA resolving 2. CAD post CABG/PCI/GERALD demand ischemic injury angina pectoris 3. Acute on chronic class I-II NYHA classification LV failure related to diastolic/systolic LV dysfunction, clinical decompensation 4. Paroxysmal atrial flutter with rapid ventricular response [id number] score of 5, now in NSR 5. Post prophylactic ICD implant 6. Hepatic congestion with coagulopathy HTN 7. DM 8. Hypercholesterolemia 9. O2-dependent COPD 10. CKD 11. Anemia 12. OSAS on cpap PLAN: 1. Abx course per ID, weaned off pressors, trend LFTs, INR 2. BD, O2 as needed to maintain saturation, NIPPV as needed 3. Continue Toprol XL 100 bid, Lovaza 2 bid, Ranexa 1000 bid, start Eliquis 5 bid as INR<2.0
--- NOTE | 2019-02-10 16:01 | CONSULT ---
Consult Consult Specialty:: hematology Referred by:: ICU - medicine Reason for Consultation:: Leukocytosis - History of Present Illness Chief Complaint: Pneumonia History of Present Illness: Patient in ICU recovering from pneumonia, with SIRS, previously on pressors, overall improving but with persistent neutrophilia. Patient without complaints at this time. Unaware of any prior hematological issues. - History Source History Provided By: Patient, Medical Record Limitations to Obtaining History: Poor Historian - Past Medical History Cardio/Vascular: Yes: CAD (S/P CABG in 2004 at [facility] and subsequent stents), CHF ( SHF- EF unknown), HTN, Hyperlipdemia, [place] (2004), Pulmonary Hypertension, Other ( PPM placed at [facility], atrial flutter) Pulmonary: Yes: COPD, O2 Dependent, Sleep Apnea Gastrointestinal: Yes: Constipation, Peptic Ulcer Disease (remotely) Hepatobiliary: Yes: Cholelithiasis, Other (fatty liver) Renal/: Yes: Renal Inusuff Infectious Disease: Yes: Other (meningitis as an infant) Musculoskeletal: Yes: Osteoarthritis - Past Surgical History Past Surgical History: Yes: CABG, Colonoscopy, Permanent Pacemaker, Stent ( coronary stents 2009) - Alcohol/Substance Use Hx Alcohol Use: Yes (quit in 2004) History of Substance Use: reports: None - Smoking History Smoking history: Former smoker Have you smoked in the past 12 months: No If you are a former smoker, when did you quit?: 2004 - Social History Usual Living Arrangement: With Child ADL: Independent 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 History of Recent Travel: No Home Medications - Allergies Allergies/Adverse Reactions: Allergies Allergy/AdvReac Type Severity Reaction Status Date / Time No Known Allergies Allergy Verified 01/25/19 12:44 - Home Medications Home Medications: Ambulatory Orders Aspirin [Aspirin EC] 81 mg PO DAILY 09/12/17 Insulin Aspart [Novolog Flexpen] 5 unit SQ TID 09/12/17 Albuterol Sulfate Inhaler - [Ventolin HFA Inhaler -] 1 - 2 inh PO Q4H 09/13/17 Docusate Sodium [Colace -] 100 mg PO DAILY 09/13/17 Folic Acid 1 mg PO DAILY 09/13/17 Linaclotide [Linzess] 145 mcg PO DAILY 09/13/17 Umeclidinium Brm/Vilanterol Tr [Anoro Ellipta 62.5-25 Mcg INH] 1 each IH DAILY 09/13/17 Atorvastatin Calcium [Lipitor] 10 mg PO DAILY 01/25/19 Icosapent Ethyl [Vascepa] 2 gm PO BID 01/25/19 Insulin Glargine,Hum.rec.anlog [Basaglar Kwikpen U-100] 20 unit SQ DAILY Ranolazine [Ranexa] 1,000 mg PO BID 01/25/19 Eltrombopag Olamine [Promacta] 100 mg PO 01/28/19 Acetaminophen [Tylenol .Regular Strength -] 650 mg PO Q4H PRN tablet 02/01/19 Apixaban [Eliquis -] 5 mg PO BID #60 tablet 02/01/19 Atorvastatin Ca [Lipitor] 10 mg PO HS tablet 02/01/19 Folic Acid - 1 mg PO DAILY tablet 02/01/19 Furosemide 80 mg PO DAILY #30 tablet 02/01/19 Insulin Sliding Scale [Novolog Vial Sliding Scale -] 1 vial SQ ACHS units 02/01 Meclizine HCl [Antivert -] 25 mg PO DAILY tablet 02/01/19 Metoprolol Succinate [Toprol XL -] 150 mg PO DAILY #30 tab.sr.24h 02/01/19 Polyethylene Glycol 3350 [Miralax 119 gm Btl -] 17 gm PO DAILY bottle 02/01/19 Ranolazine [Ranexa -] 1,000 mg PO BID tab 02/01/19 Sodium Bicarbonate - 650 mg PO BID tablet 02/01/19 Umeclidinium Brm/Vilanterol Tr [Anoro Ellipta 62.5-25 Mcg INH] 1 puff IH DAILY inhaler 02/01/19 Family Disease History - Family Disease History Other Family History: Uncle had a unknown cancer Physical Exam Vital Signs: Vital Signs Temperature 98.0 F 02/10/19 14:00 Pulse Rate 71 02/10/19 14:00 Respiratory Rate 23 H 02/10/19 14:00 Blood Pressure 108/58 L 02/10/19 14:00 O2 Sat by Pulse Oximetry (%) 100 02/10/19 11:43 Constitutional: Yes: Well Nourished, Mild Distress Eyes: Yes: Conjunctiva Clear HENT: Yes: Atraumatic, Normocephalic Neck: Yes: Trachea Midline. No: Lymphadenopathy Cardiovascular: Yes: S1, S2. No: Gallop, Murmur Respiratory: Yes: Regular, CTA Bilaterally Gastrointestinal: Yes: Soft. No: Hepatomegaly, Palpable Mass, Splenomegaly Musculoskeletal: No: Joint Swelling Extremities: Yes: WNL Edema: Yes Psychiatric: Yes: Alert Labs: CBC, BMP 02/10/19 05:30 02/10/19 05:30 Assessment/Plan Pneumonia, with severe sepsis, recovering, (afebrile several days, off pressors) , with persistent neutrophilia. Noted that ANC was within normal range prior to 02/04, suggesting that his neutrophilia is reactive, in the context of recent sepsis, and unlikely to be indicative of a primary hematological issue. Would expect ANC to settle over time. If remains high, despite complete recovery from infection, the would consider other processes.
[2019-02-10] MEDS: DOCUSATE SODIUM 100 MG CAPSULE (FP) PO PRN (21:45)
[2019-02-10] MEDS: APIXABAN 5 MG TABLET PO SCH (21:45)
[2019-02-10] MEDS: LIDOCAINE PATCH REMOVAL MC SCH (21:46)
[2019-02-11] MEDS ORDERED: PIPERACILLIN/TAZOBACTAM 2.25 GM VIAL IVPB ONE ×2 (01:39→09:03)
[2019-02-11] MEDS ORDERED: DEXTROSE 5%-WATER - 50 ML IVPB ONE ×2 (01:39→09:03)
[2019-02-11] MEDS: PIPERACILLIN/TAZOB 2.25 GM 2.25 GM in DEXTROSE 5%-WATER - 50 ML IVPB SCH ×2 (02:04→09:06)
[2019-02-11] MEDS: INSULIN SLIDING SCALE (NOVOLOG) 1 VIAL SQ SCH ×5 (06:33→22:53)
[2019-02-11] MEDS: INSULIN (LEVEMIR) 100 UNITS/ML UNITS SQ SCH (06:34)
[2019-02-11 06:38] LABS: BASO % 0.3 % (0-2.0); EOS % 1.1 % (0-4.5); HEMATOCRIT 26.4 % (35.4-49); HEMOGLOBIN 8.3 GM/dL (11.7-16.9); LYMPH % 6.7 % (8-40); MCH 31.1 pg (25.7-33.7); MCHC 31.6 g/dl (32.0-35.9); MEAN CELL VOLUME 98.4 fl (80-96); MEAN PLT VOLUME 10.4 fl (7.5-11.1); MONO % 6.7 % (3.8-10.2); NEUT % 85.2 % (42.8-82.8); PLATELET COUNT 190 K/MM3 (134-434); RBC 2.68 M/mm3 (4.00-5.60); RDW 29.6 % (11.9-15.9); WHITE BLOOD COUNT 27.1 K/mm3 (4.0-10.0)
[2019-02-11 06:53] LABS: ALBUMIN 3.1 g/dl (3.4-5.0); ALK PHOS 53 U/L (45-117); ANION GAP 5 MMOL/L (8-16); BILIRUBIN,TOTAL 1.1 mg/dL (0.2-1); BLOOD UREA NITROGEN 61 mg/dL (7-18); CALCIUM 8.4 mg/dL (8.5-10.1); CHLORIDE 103 mmol/L (98-107); CO2 30 mmol/L (21-32); CREATININE 2.2 mg/dL (0.55-1.3); GLUCOSE,RANDOM 134 mg/dL (74-106); MAGNESIUM 2.5 mg/dL (1.8-2.4); PHOSPHOROUS 3.1 mg/dL (2.5-4.9); POTASSIUM 4.9 mmol/L (3.5-5.1); SGOT/AST 78 U/L (15-37); SGPT/ALT 234 U/L (13-61); SODIUM 138 mmol/L (136-145); TOT PROT 7.3 g/dl (6.4-8.2)
[2019-02-11] MEDS ORDERED: RANOLAZINE E.R. 500 MG TABLET (FP) ONE (09:02)
[2019-02-11] MEDS: LIDOCAINE 5% TOPICAL PATCH TP SCH (09:07)
[2019-02-11] MEDS: guaiFENesin 600 MG TABLET.ER (FP) PO SCH ×2 (09:09→22:46)
[2019-02-11] MEDS: RANOLAZINE E.R. 1,000 MG TABLET (FP) PO SCH ×2 (09:10→22:45)
[2019-02-11] MEDS: APIXABAN 5 MG TABLET PO SCH ×2 (09:10→22:46)
[2019-02-11] MEDS: FOLIC ACID 1 MG TABLET (FP) PO SCH (09:10)
[2019-02-11] MEDS: OMEGA-3 ACID ETHYL ESTERS (FATTY-ACIDS) 1 GM CAPSULE (FP) PO SCH ×2 (09:22→22:46)
--- NOTE | 2019-02-11 09:26 | PN ---
Progress Note, Physician - Current Medication List Current Medications: Active Medications Albuterol Sulfate (Ventolin 0.083% Nebulizer Soln -) 1 amp NEB Q4H PRN PRN Reason: SHORTNESS OF BREATH Last Admin: 02/10/19 19:20 Dose: 1 amp Apixaban (Eliquis -) 5 mg PO BID [facility] Last Admin: 02/11/19 09:10 Dose: 5 mg Docusate Sodium (Colace -) 100 mg PO Q12H PRN PRN Reason: CONSTIPATION Last Admin: 02/10/19 21:45 Dose: 100 mg Folic Acid (Folic Acid -) 1 mg PO DAILY [facility] Last Admin: 02/11/19 09:10 Dose: 1 mg Guaifenesin (Mucinex -) 600 mg PO BID [facility] Last Admin: 02/11/19 09:09 Dose: 600 mg Piperacillin Sod/Tazobactam (Sod 2.25 gm/ Dextrose) 50 mls @ 100 mls/hr IVPB Q8H-IV [facility]; Protocol Last Admin: 02/11/19 09:06 Dose: 100 mls/hr Insulin Aspart (Novolog Vial Sliding Scale -) 1 vial SQ ACHS [facility]; Protocol Last Admin: 02/11/19 06:33 Dose: Not Given Insulin Detemir (Levemir Vial) 20 units SQ AM [facility] Last Admin: 02/11/19 06:34 Dose: 20 unit Lidocaine (Lidoderm Patch -) 1 patch TP DAILY [facility] Last Admin: 02/11/19 09:07 Dose: 1 patch Metoprolol Succinate (Toprol Xl -) 100 mg PO BID [facility] Last Admin: 02/11/19 09:10 Dose: 100 mg Miscellaneous (Lidoderm Patch Removal) 1 each MC DAILY@2200 [facility] Last Admin: 02/10/19 21:46 Dose: 1 each Non-Formulary Medication (Linaclotide [Linzess]) 145 mcg PO DAILY [facility] [id number] Ethyl Esters (Lovaza -) 2 gm PO BID [facility] Last Admin: 02/11/19 09:22 Dose: 2 gm Polyethylene Glycol (Miralax (For Daily Use) -) 17 gm PO DAILY [facility] Last Admin: 02/10/19 10:38 Dose: 17 gm Ranolazine (Ranexa -) 1,000 mg PO BID [facility] Last Admin: 02/11/19 09:10 Dose: 1,000 mg Umeclidinium/Vilanterol (Anoro Ellipta 62.5-25 Mcg Inh) 1 puff IH DAILY [facility] Last Admin: 02/10/19 10:41 Dose: 1 puff - Objective Vital Signs: Vital Signs Temperature 97.9 F 02/11/19 06:30 Pulse Rate 69 02/11/19 06:30 Respiratory Rate 18 02/11/19 06:30 Blood Pressure 110/58 L 02/11/19 06:30 O2 Sat by Pulse Oximetry (%) 100 02/11/19 07:59 Cardiovascular: Yes: S1, S2 Respiratory: Yes: On Nasal O2, Rhonchi Gastrointestinal: Yes: Normal Bowel Sounds, Soft Labs: CBC, BMP 02/11/19 05:30 02/11/19 05:30 INR, PTT INR 1.40 (0.83-1.09) H 02/10/19 05:30 Assessment/Plan - Problems (1) Fever Assessment/Plan: Resolved leukocytosis persists ID on board iv abx- per ID Microbiology 02/04/19 16:00 Urine For Antigen Detection Legionella Antigen - Final 02/04/19 16:00 Urine For Antigen Detection Streptococcus pneumoniae Antigen (M - Final 02/04/19 16:00 Urine - Urine Hinds Urine Culture - Final NO GROWTH OBTAINED 02/03/19 20:20 Urine - Urine Hinds Urine Culture - Final NO GROWTH OBTAINED 02/02/19 16:00 Sputum - Expectorated Gram Stain - Final 02/02/19 16:00 Sputum - Expectorated Sputum Culture - Final NORMAL RESPIRATORY [facility] 02/04/19 01:00 Blood - Peripheral Venous Blood Culture - Preliminary NO GROWTH OBTAINED AFTER 72 HOURS, INCUBATION TO CONTINUE FOR 2 DAYS. 02/04/19 01:00 Blood - Peripheral Venous Blood Culture - Preliminary NO GROWTH OBTAINED AFTER 72 HOURS, INCUBATION TO CONTINUE FOR 2 DAYS. lactic acid trending down Code(s): R50.9 - FEVER, UNSPECIFIED (2) Rib fractures Assessment/Plan: pain control Code(s): S22.39XA - FRACTURE OF ONE RIB, UNSP SIDE, INIT FOR CLOS FX (3) Atrial flutter Assessment/Plan: amiodarone stopped bc of increase lft refused synchronized ERIKA cardioversion toprol Code(s): I48.92 - UNSPECIFIED ATRIAL FLUTTER (4) CKD (chronic kidney disease) Code(s): N18.9 - CHRONIC KIDNEY DISEASE, UNSPECIFIED (5) Diabetes Assessment/Plan: iinsulin bgm Code(s): E11.9 - TYPE 2 DIABETES MELLITUS WITHOUT COMPLICATIONS Qualifiers: Diabetes mellitus type: type 2 (6) COPD (chronic obstructive pulmonary disease) Assessment/Plan: bipap oxygen Code(s): J44.9 - CHRONIC OBSTRUCTIVE PULMONARY DISEASE, UNSPECIFIED (7) Leukocytosis Assessment/Plan: see above hem consult noted
--- NOTE | 2019-02-11 10:41 | PN ---
Progress Note (short form) - Note Progress Note: more alert on nasal canulla, ate all his breakfast OOB to chair denies chest pain or abdominal pain no diarrhea voiding with urinal Vital Signs Period Temp Pulse Resp BP Sys/Renteria Pulse Ox Last 24 Hr 97.9 F-98.2 F 64-72 17-23 108-123/46-88 97-100 cor-rrr lungs decreased bs at bases abd soft, protuberant ext trace edema CBC, BMP 02/11/19 05:30 02/11/19 05:30 Microbiology 02/09/19 12:30 Sputum - Expectorated Gram Stain - Final 02/09/19 12:30 Sputum - Expectorated Sputum Culture - Final NORMAL RESPIRATORY [facility] 02/07/19 13:47 Blood - Peripheral Venous Blood Culture - Preliminary NO GROWTH OBTAINED AFTER 72 HOURS, INCUBATION TO CONTINUE FOR 2 DAYS. 02/07/19 13:40 Blood - Peripheral Venous Blood Culture - Preliminary NO GROWTH OBTAINED AFTER 72 HOURS, INCUBATION TO CONTINUE FOR 2 DAYS. 02/08/19 06:00 Urine - Urine - Catheterized Urine Culture - Final NO GROWTH OBTAINED 02/04/19 01:00 Blood - Peripheral Venous Blood Culture - Final NO GROWTH AFTER 5 DAYS INCUBATION 02/04/19 01:00 Blood - Peripheral Venous Blood Culture - Final NO GROWTH AFTER 5 DAYS INCUBATION 02/04/19 16:00 Urine - Urine Hinds Urine Culture - Final NO GROWTH OBTAINED 02/02/19 16:00 Sputum - Expectorated Gram Stain - Final 02/02/19 16:00 Sputum - Expectorated Sputum Culture - Final NORMAL RESPIRATORY [facility] 02/04/19 16:00 Urine For Antigen Detection Legionella Antigen - Final 02/04/19 16:00 Urine For Antigen Detection Streptococcus pneumoniae Antigen (M - Final 02/03/19 20:20 Urine - Urine Hinds Urine Culture - Final NO GROWTH OBTAINED chest ct- bilateral patchy infiltrates abd/pelvis- peripancreatic fluid, cholelithiasis, no cholycystitis, splenomegaly Current Medications Albuterol Sulfate (Ventolin 0.083% Nebulizer Soln -) 1 amp NEB Q4H PRN PRN Reason: SHORTNESS OF BREATH Last Admin: 02/10/19 19:20 Dose: 1 amp Apixaban (Eliquis -) 5 mg PO BID [facility] Last Admin: 02/11/19 09:10 Dose: 5 mg Docusate Sodium (Colace -) 100 mg PO Q12H PRN PRN Reason: CONSTIPATION Last Admin: 02/10/19 21:45 Dose: 100 mg Folic Acid (Folic Acid -) 1 mg PO DAILY [facility] Last Admin: 02/11/19 09:10 Dose: 1 mg Guaifenesin (Mucinex -) 600 mg PO BID [facility] Last Admin: 02/11/19 09:09 Dose: 600 mg Piperacillin Sod/Tazobactam (Sod 2.25 gm/ Dextrose) 50 mls @ 100 mls/hr IVPB Q8H-IV [facility]; Protocol Last Admin: 02/11/19 09:06 Dose: 100 mls/hr Insulin Aspart (Novolog Vial Sliding Scale -) 1 vial SQ ACHS [facility]; Protocol Last Admin: 02/11/19 06:33 Dose: Not Given Insulin Detemir (Levemir Vial) 20 units SQ AM [facility] Last Admin: 02/11/19 06:34 Dose: 20 unit Lidocaine (Lidoderm Patch -) 1 patch TP DAILY [facility] Last Admin: 02/11/19 09:07 Dose: 1 patch Metoprolol Succinate (Toprol Xl -) 100 mg PO BID [facility] Last Admin: 02/11/19 09:10 Dose: 100 mg Miscellaneous (Lidoderm Patch Removal) 1 each MC DAILY@2200 [facility] Last Admin: 02/10/19 21:46 Dose: 1 each Non-Formulary Medication (Linaclotide [Linzess]) 145 mcg PO DAILY [facility] Lkbkc-7-Uqun Ethyl Esters (Lovaza -) 2 gm PO BID [facility] Last Admin: 02/11/19 09:22 Dose: 2 gm Pantoprazole Sodium (Protonix -) 40 mg PO DAILY [facility] Polyethylene Glycol (Miralax (For Daily Use) -) 17 gm PO DAILY [facility] Last Admin: 02/10/19 10:38 Dose: 17 gm Ranolazine (Ranexa -) 1,000 mg PO BID [facility] Last Admin: 02/11/19 09:10 Dose: 1,000 mg Umeclidinium/Vilanterol (Anoro Ellipta 62.5-25 Mcg Inh) 1 puff IH DAILY [facility] Last Admin: 02/10/19 10:41 Dose: 1 puff a/p leukocytosis persists-day #7 broad spectrum antiiboitcs cefepime then zosyn will d/c antiiboitics and observe repeat cxray reculture off antiibotics if leukocytosis persists chf copd ckd-improved abnl lfts improving- ?hepatic congestion continue zosyn for pneumonia Problem List - Problems (1) Fever Code(s): R50.9 - FEVER, UNSPECIFIED (2) Pneumonia Code(s): J18.9 - PNEUMONIA, UNSPECIFIED ORGANISM (3) Rib fractures Code(s): S22.39XA - FRACTURE OF ONE RIB, UNSP SIDE, INIT FOR CLOS FX (4) Acute on chronic diastolic (congestive) heart failure Code(s): I50.33 - ACUTE ON CHRONIC DIASTOLIC (CONGESTIVE) HEART FAILURE (5) COPD (chronic obstructive pulmonary disease) Code(s): J44.9 - CHRONIC OBSTRUCTIVE PULMONARY DISEASE, UNSPECIFIED (6) CKD (chronic kidney disease) Code(s): N18.9 - CHRONIC KIDNEY DISEASE, UNSPECIFIED
[2019-02-11] MEDS: PANTOPRAZOLE 40 MG TABLET (FP) PO SCH (10:49)
[2019-02-11] MEDS: UMECLIDINIUM/VILANTEROL (ANORO) 62.5/25 MCG INHALER IH SCH (10:51)
[2019-02-11] MEDS: POLYETHYLENE GLYCOL 3350 119 GM BTL PO SCH (10:53)
[2019-02-11 12:17] LABS: ANISOCYTOSIS 2+; MACROCYTOSIS 0; PLATELET ESTIMATE NORMAL; TEAR DROP CELLS 1+
--- NOTE | 2019-02-11 12:43 | PN ---
Problem List - Problems (1) Fever Code(s): R50.9 - FEVER, UNSPECIFIED (2) Pneumonia Code(s): J18.9 - PNEUMONIA, UNSPECIFIED ORGANISM (3) Rib fractures Code(s): S22.39XA - FRACTURE OF ONE RIB, UNSP SIDE, INIT FOR CLOS FX (4) Acute on chronic diastolic (congestive) heart failure Code(s): I50.33 - ACUTE ON CHRONIC DIASTOLIC (CONGESTIVE) HEART FAILURE (5) COPD (chronic obstructive pulmonary disease) Code(s): J44.9 - CHRONIC OBSTRUCTIVE PULMONARY DISEASE, UNSPECIFIED (6) CKD (chronic kidney disease) Code(s): N18.9 - CHRONIC KIDNEY DISEASE, UNSPECIFIED
--- NOTE | 2019-02-11 12:58 | PN ---
Teaching Attending Note Name of Resident: Rhonda Schroeder ATTENDING PHYSICIAN STATEMENT I saw and evaluated the patient. I reviewed the resident's note and discussed the case with the resident. I agree with the resident's findings and plan as documented. SUBJECTIVE: Pt seen and examined in the ICU. c/o being restrained. Denies shortness of breath or chest pain. No fevers recorded. OBJECTIVE: Vital Signs Period Temp Pulse Resp BP Sys/Renteria Pulse Ox Last 24 Hr 97.9 F-98.2 F 64-73 17-30 108-132/51-88 97-100 Intake & Output 02/08/19 02/09/19 02/10/19 02/11/19 23:59 23:59 23:59 23:59 Intake Total 514 1960 2530 130 Output Total 1600 2700 1450 250 Balance -1086 -740 1080 -120 Weight 101.151 kg 103.328 kg 104.417 kg Gen: NAD in chair Heart: RRR Lung: decreased breath sounds at the bases Abd: soft, nontender Ext: distal edema CBC, BMP 02/11/19 05:30 02/11/19 05:30 Active Medications Albuterol Sulfate (Ventolin 0.083% Nebulizer Soln -) 1 amp NEB Q4H PRN PRN Reason: SHORTNESS OF BREATH Last Admin: 02/10/19 19:20 Dose: 1 amp Apixaban (Eliquis -) 5 mg PO BID [facility] Last Admin: 02/11/19 09:10 Dose: 5 mg Docusate Sodium (Colace -) 100 mg PO Q12H PRN PRN Reason: CONSTIPATION Last Admin: 02/10/19 21:45 Dose: 100 mg Folic Acid (Folic Acid -) 1 mg PO DAILY [facility] Last Admin: 02/11/19 09:10 Dose: 1 mg Guaifenesin (Mucinex -) 600 mg PO BID [facility] Last Admin: 02/11/19 09:09 Dose: 600 mg Insulin Aspart (Novolog Vial Sliding Scale -) 1 vial SQ ACHS [facility]; Protocol Last Admin: 02/11/19 12:02 Dose: 4 unit Insulin Detemir (Levemir Vial) 20 units SQ AM [facility] Last Admin: 02/11/19 06:34 Dose: 20 unit Lidocaine (Lidoderm Patch -) 1 patch TP DAILY [facility] Last Admin: 02/11/19 09:07 Dose: 1 patch Metoprolol Succinate (Toprol Xl -) 100 mg PO BID [facility] Last Admin: 02/11/19 09:10 Dose: 100 mg Miscellaneous (Lidoderm Patch Removal) 1 each MC DAILY@2200 [facility] Last Admin: 02/10/19 21:46 Dose: 1 each Non-Formulary Medication (Linaclotide [Linzess]) 145 mcg PO DAILY [facility] Rwuph-8-Svmi Ethyl Esters (Lovaza -) 2 gm PO BID [facility] Last Admin: 02/11/19 09:22 Dose: 2 gm Pantoprazole Sodium (Protonix -) 40 mg PO DAILY [facility] Last Admin: 02/11/19 10:49 Dose: 40 mg Polyethylene Glycol (Miralax (For Daily Use) -) 17 gm PO DAILY [facility] Last Admin: 02/11/19 10:53 Dose: 17 gm Ranolazine (Ranexa -) 1,000 mg PO BID [facility] Last Admin: 02/11/19 09:10 Dose: 1,000 mg Umeclidinium/Vilanterol (Anoro Ellipta 62.5-25 Mcg Inh) 1 puff IH DAILY [facility] Last Admin: 02/11/19 10:51 Dose: 1 puff ASSESSMENT AND PLAN: Acute on Chronic Hypoxic Respiratory Failure Pneumonia Septic Shock improving COPD Acute on Chronic Systolic/Diastolic Heart Failure Paroxysmal Atrial Fibrillation Obstructive Sleep Apnea CKD HTN DM Hypercholesterolemia - complete antibiotics per ID - O2 to keep Spo2 >90% - inhaled bronchodilators - CPAP at night - rate controlled - continue anticoagulation - can monitor on floor Problem List - Problems (1) Acute on chronic diastolic (congestive) heart failure Code(s): I50.33 - ACUTE ON CHRONIC DIASTOLIC (CONGESTIVE) HEART FAILURE
--- NOTE | 2019-02-11 13:08 | PN ---
Progress Note, Physician History of Present Illness: events of last 24 hrs noted - Current Medication List Current Medications: Active Medications Albuterol Sulfate (Ventolin 0.083% Nebulizer Soln -) 1 amp NEB Q4H PRN PRN Reason: SHORTNESS OF BREATH Last Admin: 02/10/19 19:20 Dose: 1 amp Apixaban (Eliquis -) 5 mg PO BID [facility] Last Admin: 02/11/19 09:10 Dose: 5 mg Docusate Sodium (Colace -) 100 mg PO Q12H PRN PRN Reason: CONSTIPATION Last Admin: 02/10/19 21:45 Dose: 100 mg Folic Acid (Folic Acid -) 1 mg PO DAILY [facility] Last Admin: 02/11/19 09:10 Dose: 1 mg Guaifenesin (Mucinex -) 600 mg PO BID [facility] Last Admin: 02/11/19 09:09 Dose: 600 mg Insulin Aspart (Novolog Vial Sliding Scale -) 1 vial SQ ACHS [facility]; Protocol Last Admin: 02/11/19 12:02 Dose: 4 unit Insulin Detemir (Levemir Vial) 20 units SQ AM [facility] Last Admin: 02/11/19 06:34 Dose: 20 unit Lidocaine (Lidoderm Patch -) 1 patch TP DAILY [facility] Last Admin: 02/11/19 09:07 Dose: 1 patch Metoprolol Succinate (Toprol Xl -) 100 mg PO BID [facility] Last Admin: 02/11/19 09:10 Dose: 100 mg Miscellaneous (Lidoderm Patch Removal) 1 each MC DAILY@2200 [facility] Last Admin: 02/10/19 21:46 Dose: 1 each Non-Formulary Medication (Linaclotide [Linzess]) 145 mcg PO DAILY [facility] [id number]-2-Clgd Ethyl Esters (Lovaza -) 2 gm PO BID [facility] Last Admin: 02/11/19 09:22 Dose: 2 gm Pantoprazole Sodium (Protonix -) 40 mg PO DAILY [facility] Last Admin: 02/11/19 10:49 Dose: 40 mg Polyethylene Glycol (Miralax (For Daily Use) -) 17 gm PO DAILY [facility] Last Admin: 02/11/19 10:53 Dose: 17 gm Ranolazine (Ranexa -) 1,000 mg PO BID [facility] Last Admin: 02/11/19 09:10 Dose: 1,000 mg Umeclidinium/Vilanterol (Anoro Ellipta 62.5-25 Mcg Inh) 1 puff IH DAILY [facility] Last Admin: 02/11/19 10:51 Dose: 1 puff - Objective Vital Signs: Vital Signs Temperature 98.0 F 02/11/19 08:00 Pulse Rate 73 02/11/19 12:00 Respiratory Rate 30 H 02/11/19 12:00 Blood Pressure 132/84 02/11/19 12:00 O2 Sat by Pulse Oximetry (%) 100 02/11/19 09:00 Eyes: Yes: WNL, Conjunctiva Clear, EOM Intact HENT: Yes: WNL, Atraumatic, Normocephalic Neck: Yes: WNL, Supple, Trachea Midline Cardiovascular: Yes: WNL, Regular Rate and Rhythm Respiratory: Yes: WNL, Regular, CTA Bilaterally Gastrointestinal: Yes: WNL, Normal Bowel Sounds Genitourinary: Yes: WNL Musculoskeletal: Yes: WNL Extremities: Yes: WNL Edema: No Integumentary: Yes: WNL Neurological: Yes: WNL, Alert, Oriented ...Motor Strength: WNL Psychiatric: Yes: WNL Labs: CBC, BMP 02/11/19 05:30 02/11/19 05:30 INR, PTT INR 1.40 (0.83-1.09) H 02/10/19 05:30 Assessment/Plan 1. Post septic shock likely due to PNA resolving 2. CAD post CABG/PCI/GERALD demand ischemic injury angina pectoris 3. Acute on chronic class I-II NYHA classification LV failure related to diastolic/systolic LV dysfunction, clinical decompensation 4. Paroxysmal atrial flutter with rapid ventricular response [id number] score of 5, now in NSR 5. Post prophylactic ICD implant 6. Hepatic congestion with coagulopathy HTN 7. DM 8. Hypercholesterolemia 9. O2-dependent COPD 10. CKD 11. Anemia 12. OSAS on cpap PLAN: 1. Abx course per ID, weaned off pressors, trend LFTs, INR 2. BD, O2 as needed to maintain saturation, NIPPV as needed 3. Continue Toprol XL 100 bid, Lovaza 2 bid, Ranexa 1000 bid, start Eliquis 5 bid as INR<2.0
--- NOTE | 2019-02-11 14:02 | PN ---
Physical Exam: SUBJECTIVE: Patient seen this morning and only complains of the arturo vest. Can go up to floor. OBJECTIVE: Vital Signs Temperature 98.0 F 02/11/19 08:00 Pulse Rate 73 02/11/19 12:00 Respiratory Rate 30 H 02/11/19 12:00 Blood Pressure 132/84 02/11/19 12:00 O2 Sat by Pulse Oximetry (%) 100 02/11/19 09:00 GENERAL: The patient is awake, alert, and fully oriented, in no acute distress. On arturo LUNGS: Breath sounds equal, clear to auscultation bilaterally, HEART: Regular rate and rhythm, S1, S2 without murmur, rub or gallop. ABDOMEN: Soft, nontender, nondistended, normoactive bowel sounds, EXTREMITIES: 2+ pulses, warm, well-perfused, no edema. PSYCH: Normal mood, normal affect. SKIN: Warm, dry, normal turgor, no rashes or lesions noted CBCD WBC 27.1 K/mm3 (4.0-10.0) H 02/11/19 05:30 RBC 2.68 M/mm3 (4.00-5.60) L 02/11/19 05:30 Hgb 8.3 GM/dL (11.7-16.9) L 02/11/19 05:30 Hct 26.4 % (35.4-49) L 02/11/19 05:30 MCV 98.4 fl (80-96) H 02/11/19 05:30 MCHC 31.6 g/dl (32.0-35.9) L 02/11/19 05:30 RDW 29.6 % (11.9-15.9) H 02/11/19 05:30 Plt Count 190 K/MM3 (134-434) 02/11/19 05:30 MPV 10.4 fl (7.5-11.1) 02/11/19 05:30 CMP Sodium 138 mmol/L (136-145) 02/11/19 05:30 Potassium 4.9 mmol/L (3.5-5.1) 02/11/19 05:30 Chloride 103 mmol/L (98-107) 02/11/19 05:30 Carbon Dioxide 30 mmol/L (21-32) 02/11/19 05:30 Anion Gap 5 MMOL/L (8-16) L 02/11/19 05:30 BUN 61 mg/dL (7-18) H 02/11/19 05:30 Creatinine 2.2 mg/dL (0.55-1.3) H 02/11/19 05:30 Creat Clearance w eGFR 29.65 (>60) 02/11/19 05:30 Calcium 8.4 mg/dL (8.5-10.1) L 02/11/19 05:30 Total Bilirubin 1.1 mg/dL (0.2-1) H 02/11/19 05:30 AST 78 U/L (15-37) H 02/11/19 05:30 ALT 234 U/L (13-61) H 02/11/19 05:30 Alkaline Phosphatase 53 U/L (45-117) 02/11/19 05:30 Total Protein 7.3 g/dl (6.4-8.2) 02/11/19 05:30 Albumin 3.1 g/dl (3.4-5.0) L 02/11/19 05:30 Active Medications Albuterol Sulfate (Ventolin 0.083% Nebulizer Soln -) 1 amp NEB Q4H PRN PRN Reason: SHORTNESS OF BREATH Last Admin: 02/10/19 19:20 Dose: 1 amp Apixaban (Eliquis -) 5 mg PO BID [facility] Last Admin: 02/11/19 09:10 Dose: 5 mg Docusate Sodium (Colace -) 100 mg PO Q12H PRN PRN Reason: CONSTIPATION Last Admin: 02/10/19 21:45 Dose: 100 mg Folic Acid (Folic Acid -) 1 mg PO DAILY [facility] Last Admin: 02/11/19 09:10 Dose: 1 mg Guaifenesin (Mucinex -) 600 mg PO BID [facility] Last Admin: 02/11/19 09:09 Dose: 600 mg Insulin Aspart (Novolog Vial Sliding Scale -) 1 vial SQ ACHS [facility]; Protocol Last Admin: 02/11/19 12:02 Dose: 4 unit Insulin Detemir (Levemir Vial) 20 units SQ AM [facility] Last Admin: 02/11/19 06:34 Dose: 20 unit Lidocaine (Lidoderm Patch -) 1 patch TP DAILY [facility] Last Admin: 02/11/19 09:07 Dose: 1 patch Metoprolol Succinate (Toprol Xl -) 100 mg PO BID [facility] Last Admin: 02/11/19 09:10 Dose: 100 mg Miscellaneous (Lidoderm Patch Removal) 1 each MC DAILY@2200 [facility] Last Admin: 02/10/19 21:46 Dose: 1 each Non-Formulary Medication (Linaclotide [Linzess]) 145 mcg PO DAILY [facility] Oqwwh-2-Fldp Ethyl Esters (Lovaza -) 2 gm PO BID [facility] Last Admin: 02/11/19 09:22 Dose: 2 gm Pantoprazole Sodium (Protonix -) 40 mg PO DAILY [facility] Last Admin: 02/11/19 10:49 Dose: 40 mg Polyethylene Glycol (Miralax (For Daily Use) -) 17 gm PO DAILY [facility] Last Admin: 02/11/19 10:53 Dose: 17 gm Ranolazine (Ranexa -) 1,000 mg PO BID [facility] Last Admin: 02/11/19 09:10 Dose: 1,000 mg Umeclidinium/Vilanterol (Anoro Ellipta 62.5-25 Mcg Inh) 1 puff IH DAILY [facility] Last Admin: 02/11/19 10:51 Dose: 1 puff ASSESSMENT/PLAN: 73 yo M h/o HTN, DM, hypercholesterolemia, COPD, chronic hypoxic respiratory failure on home O2, CAD s/p CABG, JARET, CKD,who is here for septic shock which has resolved. 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 Cardio - hx HF pEF - continue eliquis, continue toprolol BID - hald amiodarone for elevated LFT's ( trending down, reconsider restarting) - ranolazine 1000 mg BID for angina Pulm - patient tolerating nasal cannula - keep O2 above 90 GI - continue folate and thiamine for alcohol usage - AST and ALT trending down - US: borderline hepatomegaly with coarse and dense echo texture suggestive of mild fatty infiltrate - CT: free intraperitoneal fluid, splenomegaly - continue bowel regime ID - septic shock resolved - off Zosyn - white count likely reactive, as discussed by heme - Ucx, blood cx negative, no growth and afebrile Renal - JANETH on CKD, slowly resolving - Unknown baseline - Cont to trend BUN/Cr - Avoid nephrotoxic agent Endo - hx DM - hold metformin - continue SS FEN - monitor lytes - diabetic diet Prophy - on home eliquis Dispo: patient has been stable, can be monitored on tele Visit type - Emergency Visit Emergency Visit: No - New Patient This patient is new to me today: No - Critical Care Critical Care patient: Yes Total Critical Care Time (in minutes): 35 Critical Care Statement: The care of this patient involved high complexity decision making to prevent further life threatening deterioration of the patient 's condition and/or to evaluate & treat vital organ system(s) failure or risk of failure.
--- NOTE | 2019-02-11 16:19 | PN ---
Progress Note, Physician History of Present Illness: Pt seen and examined at bedside. He is awake but agitated today. He denies shortness of breath. - Current Medication List Current Medications: Active Medications Albuterol Sulfate (Ventolin 0.083% Nebulizer Soln -) 1 amp NEB Q4H PRN PRN Reason: SHORTNESS OF BREATH Last Admin: 02/10/19 19:20 Dose: 1 amp Apixaban (Eliquis -) 5 mg PO BID [facility] Last Admin: 02/11/19 09:10 Dose: 5 mg Docusate Sodium (Colace -) 100 mg PO Q12H PRN PRN Reason: CONSTIPATION Last Admin: 02/10/19 21:45 Dose: 100 mg Folic Acid (Folic Acid -) 1 mg PO DAILY [facility] Last Admin: 02/11/19 09:10 Dose: 1 mg Guaifenesin (Mucinex -) 600 mg PO BID [facility] Last Admin: 02/11/19 09:09 Dose: 600 mg Insulin Aspart (Novolog Vial Sliding Scale -) 1 vial SQ ACHS [facility]; Protocol Last Admin: 02/11/19 12:02 Dose: 4 unit Insulin Detemir (Levemir Vial) 20 units SQ AM [facility]PL[facility] Last Admin: 02/11/19 06:34 Dose: 20 unit Lidocaine (Lidoderm Patch -) 1 patch TP DAILY [facility] Last Admin: 02/11/19 09:07 Dose: 1 patch Metoprolol Succinate (Toprol Xl -) 100 mg PO BID [facility] Last Admin: 02/11/19 09:10 Dose: 100 mg Miscellaneous (Lidoderm Patch Removal) 1 each MC DAILY@2200 [facility] Last Admin: 02/10/19 21:46 Dose: 1 each Non-Formulary Medication (Linaclotide [Linzess]) 145 mcg PO DAILY [facility] Distl-0-Wtrp Ethyl Esters (Lovaza -) 2 gm PO BID [facility] Last Admin: 02/11/19 09:22 Dose: 2 gm Pantoprazole Sodium (Protonix -) 40 mg PO DAILY [facility] Last Admin: 02/11/19 10:49 Dose: 40 mg Polyethylene Glycol (Miralax (For Daily Use) -) 17 gm PO DAILY [facility] Last Admin: 02/11/19 10:53 Dose: 17 gm Ranolazine (Ranexa -) 1,000 mg PO BID [facility] Last Admin: 02/11/19 09:10 Dose: 1,000 mg Umeclidinium/Vilanterol (Anoro Ellipta 62.5-25 Mcg Inh) 1 puff IH DAILY [facility] Last Admin: 02/11/19 10:51 Dose: 1 puff - Objective Vital Signs: Vital Signs Temperature 98.0 F 02/11/19 08:00 Pulse Rate 73 02/11/19 12:00 Respiratory Rate 30 H 02/11/19 12:00 Blood Pressure 132/84 02/11/19 12:00 O2 Sat by Pulse Oximetry (%) 100 02/11/19 09:00 Constitutional: Yes: Calm Eyes: Yes: Conjunctiva Clear HENT: Yes: Atraumatic Cardiovascular: Yes: S1, S2 Respiratory: Yes: CTA Bilaterally Gastrointestinal: Yes: Soft Genitourinary: Yes: WNL Musculoskeletal: Yes: WNL Edema: Yes Edema: LLE: 2+, RLE: 2+ Neurological: Yes: Oriented Psychiatric: Yes: Oriented Labs: CBC, BMP 02/11/19 05:30 02/11/19 05:30 INR, PTT INR 1.40 (0.83-1.09) H 02/10/19 05:30 Assessment/Plan Current Medications Generic Name Dose Route Start Last Admin Trade Name Freq PRN Reason Stop Dose Admin Albuterol Sulfate 1 amp 02/09/19 01:11 02/10/19 19:20 Ventolin 0.083% Nebulizer Soln - NEB 1 amp Q4H PRN Administration SHORTNESS OF BREATH Apixaban 5 mg 02/10/19 22:00 02/11/19 09:10 Eliquis - PO 5 mg BID [facility] Administration Docusate Sodium 100 mg 02/08/19 21:11 02/10/19 21:45 Colace - PO 100 mg Q12H PRN Administration CONSTIPATION Folic Acid 1 mg 02/02/19 10:00 02/11/19 09:10 Folic Acid - PO 1 mg DAILY [facility] Administration Guaifenesin 600 mg 02/10/19 10:00 02/11/19 09:09 Mucinex - PO 600 mg BID [facility] Administration Insulin Aspart 1 vial 02/02/19 07:00 02/11/19 12:02 Novolog Vial Sliding Scale - SQ 4 unit ACHS [facility] Administration Protocol Insulin Detemir 20 units 02/02/19 08:15 02/11/19 06:34 Levemir Vial SQ 20 unit AM [facility] Administration Lidocaine 1 patch 02/03/19 11:45 02/11/19 09:07 Lidoderm Patch - TP 1 patch DAILY [facility] Administration Metoprolol Succinate 100 mg 02/07/19 01:42 02/11/19 09:10 Toprol Xl - PO 100 mg BID [facility] Administration Miscellaneous 1 each 02/03/19 22:00 02/10/19 21:46 Lidoderm Patch Removal MC 1 each DAILY@2200 [facility] Administration Non-Formulary Medication 145 mcg 02/02/19 10:00 Linaclotide [Linzess] PO DAILY [facility] Jeaah-5-Xerg Ethyl Esters 2 gm 02/02/19 22:00 02/11/19 09:22 Lovaza - PO 2 gm BID [facility] Administration Pantoprazole Sodium 40 mg 02/11/19 10:00 02/11/19 10:49 Protonix - PO 40 mg DAILY [facility] Administration Polyethylene Glycol 17 gm 02/02/19 10:00 02/11/19 10:53 Miralax (For Daily Use) - PO 17 gm DAILY [facility] Administration Ranolazine 1,000 mg 02/02/19 10:00 02/11/19 09:10 Ranexa - PO 1,000 mg BID [facility] Administration Umeclidinium/Vilanterol 1 puff 02/02/19 10:00 02/11/19 10:51 Anoro Ellipta 62.5-25 Mcg Inh IH 1 puff DAILY [facility] Administration Impression 1. CKD 2. HTN 3. DM 4. resp failure requiring bipap 5. anemia 6. CHF 7. JANETH Plan - renal function continues to improve - repeat labs in am - repeat cxr in am - will evaluate for lasix daily - arb on hold
[2019-02-11] MEDS: DOCUSATE SODIUM 100 MG CAPSULE (FP) PO PRN (22:46)
[2019-02-11] MEDS: LIDOCAINE PATCH REMOVAL MC SCH (22:46)
[2019-02-12 05:11] LABS: ALPHA 2 MACROGLOBULINS,QN 187 mg/dL (110-276); ALT(SGPT)P5P 534 IU/L (0-55); CHOLESTEROL TOTAL 82 mg/dL (100-199); FIBROSIS SCORE 0.75 (0.00-0.21); GGT= 63 IU/L (0-65); GLUCOSE SERUM 130 mg/dL (65-99); HEIGHT 69 in (.); WEIGHT- 223 LBS (.)
[2019-02-12] MEDS: INSULIN SLIDING SCALE (NOVOLOG) 1 VIAL SQ SCH ×4 (06:47→21:11)
[2019-02-12] MEDS: INSULIN (LEVEMIR) 100 UNITS/ML UNITS SQ SCH (06:49)
[2019-02-12 07:00] LABS: ANION GAP 5 MMOL/L (8-16); BLOOD UREA NITROGEN 54 mg/dL (7-18); CALCIUM 8.2 mg/dL (8.5-10.1); CHLORIDE 102 mmol/L (98-107); CO2 26 mmol/L (21-32); CREATININE 1.8 mg/dL (0.55-1.3); GLUCOSE,RANDOM 139 mg/dL (74-106); MAGNESIUM 2.5 mg/dL (1.8-2.4); PHOSPHOROUS 3.1 mg/dL (2.5-4.9); POTASSIUM 5.2 mmol/L (3.5-5.1); SODIUM 133 mmol/L (136-145)
[2019-02-12 07:01] LABS: HEMOGLOBIN 8.2 GM/dL (11.7-16.9); MCH 30.5 pg (25.7-33.7); MCHC 31.5 g/dl (32.0-35.9); MEAN CELL VOLUME 96.8 fl (80-96); MEAN PLT VOLUME 10.7 fl (7.5-11.1); PLATELET COUNT 218 K/MM3 (134-434); RBC 2.69 M/mm3 (4.00-5.60); RDW 29.2 % (11.9-15.9); WHITE BLOOD COUNT 26.6 K/mm3 (4.0-10.0)
--- NOTE | 2019-02-12 08:19 | PN ---
Progress Note, Physician - Current Medication List Current Medications: Active Medications Albuterol Sulfate (Ventolin 0.083% Nebulizer Soln -) 1 amp NEB Q4H PRN PRN Reason: SHORTNESS OF BREATH Last Admin: 02/10/19 19:20 Dose: 1 amp Apixaban (Eliquis -) 5 mg PO BID [facility] Last Admin: 02/11/19 22:46 Dose: 5 mg Docusate Sodium (Colace -) 100 mg PO Q12H PRN PRN Reason: CONSTIPATION Last Admin: 02/11/19 22:46 Dose: 100 mg Folic Acid (Folic Acid -) 1 mg PO DAILY [facility] Last Admin: 02/11/19 09:10 Dose: 1 mg Guaifenesin (Mucinex -) 600 mg PO BID [facility] Last Admin: 02/11/19 22:46 Dose: 600 mg Insulin Aspart (Novolog Vial Sliding Scale -) 1 vial SQ ACHS [facility]; Protocol Last Admin: 02/12/19 06:47 Dose: Not Given Insulin Detemir (Levemir Vial) 20 units SQ AM [facility] Last Admin: 02/12/19 06:49 Dose: 20 unit Lidocaine (Lidoderm Patch -) 1 patch TP DAILY [facility] Last Admin: 02/11/19 09:07 Dose: 1 patch Metoprolol Succinate (Toprol Xl -) 100 mg PO BID [facility] Last Admin: 02/11/19 22:47 Dose: 100 mg Miscellaneous (Lidoderm Patch Removal) 1 each MC DAILY@2200 [facility] Last Admin: 02/11/19 22:46 Dose: 1 each Non-Formulary Medication (Linaclotide [Linzess]) 145 mcg PO DAILY [facility] [place]-5-Yhbd Ethyl Esters (Lovaza -) 2 gm PO BID [facility] Last Admin: 02/11/19 22:46 Dose: 2 gm Pantoprazole Sodium (Protonix -) 40 mg PO DAILY [facility] Last Admin: 02/11/19 10:49 Dose: 40 mg Polyethylene Glycol (Miralax (For Daily Use) -) 17 gm PO DAILY [facility] Last Admin: 02/11/19 10:53 Dose: 17 gm Ranolazine (Ranexa -) 1,000 mg PO BID [facility] Last Admin: 02/11/19 22:45 Dose: 1,000 mg Umeclidinium/Vilanterol (Anoro Ellipta 62.5-25 Mcg Inh) 1 puff IH DAILY [facility] Last Admin: 02/11/19 10:51 Dose: 1 puff - Objective Vital Signs: Vital Signs Temperature 97.4 F L 02/12/19 06:00 Pulse Rate 64 02/12/19 06:00 Respiratory Rate 20 02/12/19 06:00 Blood Pressure 107/47 L 02/12/19 06:00 O2 Sat by Pulse Oximetry (%) 97 02/11/19 22:00 Cardiovascular: Yes: Regular Rate and Rhythm Respiratory: Yes: Regular, CTA Bilaterally Gastrointestinal: Yes: Normal Bowel Sounds, Soft. No: Tenderness Labs: CBC, BMP 02/12/19 05:30 02/12/19 05:30 INR, PTT INR 1.40 (0.83-1.09) H 02/10/19 05:30 Assessment/Plan - Problems (1) Fever Assessment/Plan: Resolved leukocytosis persists ID on board iv abx- per ID Microbiology 02/04/19 16:00 Urine For Antigen Detection Legionella Antigen - Final 02/04/19 16:00 Urine For Antigen Detection Streptococcus pneumoniae Antigen (M - Final 02/04/19 16:00 Urine - Urine Hinds Urine Culture - Final NO GROWTH OBTAINED 02/03/19 20:20 Urine - Urine Hinds Urine Culture - Final NO GROWTH OBTAINED 02/02/19 16:00 Sputum - Expectorated Gram Stain - Final 02/02/19 16:00 Sputum - Expectorated Sputum Culture - Final NORMAL RESPIRATORY HARLAN 02/04/19 01:00 Blood - Peripheral Venous Blood Culture - Preliminary NO GROWTH OBTAINED AFTER 72 HOURS, INCUBATION TO CONTINUE FOR 2 DAYS. 02/04/19 01:00 Blood - Peripheral Venous Blood Culture - Preliminary NO GROWTH OBTAINED AFTER 72 HOURS, INCUBATION TO CONTINUE FOR 2 DAYS. lactic acid trending down Code(s): R50.9 - FEVER, UNSPECIFIED (2) Rib fractures Assessment/Plan: pain control Code(s): S22.39XA - FRACTURE OF ONE RIB, UNSP SIDE, INIT FOR CLOS FX (3) Atrial flutter Assessment/Plan: amiodarone stopped bc of increase lft refused synchronized ERIKA cardioversion toprol Code(s): I48.92 - UNSPECIFIED ATRIAL FLUTTER (4) CKD (chronic kidney disease) Code(s): N18.9 - CHRONIC KIDNEY DISEASE, UNSPECIFIED (5) Diabetes Assessment/Plan: iinsulin bgm Code(s): E11.9 - TYPE 2 DIABETES MELLITUS WITHOUT COMPLICATIONS Qualifiers: Diabetes mellitus type: type 2 (6) COPD (chronic obstructive pulmonary disease) Assessment/Plan: bipap oxygen Code(s): J44.9 - CHRONIC OBSTRUCTIVE PULMONARY DISEASE, UNSPECIFIED (7) Leukocytosis Assessment/Plan: see above hem consult noted PHYSICAL THERAPY
--- NOTE | 2019-02-12 08:52 | PN ---
Physical Exam: SUBJECTIVE: Patient seen this morning and without complaint. No acute events overnight. OBJECTIVE: Vital Signs Temperature 97.4 F L 02/12/19 06:00 Pulse Rate 64 02/12/19 06:00 Respiratory Rate 20 02/12/19 06:00 Blood Pressure 107/47 L 02/12/19 06:00 O2 Sat by Pulse Oximetry (%) 97 02/11/19 22:00 GENERAL: The patient is awake, alert, and fully oriented, in no acute distress. LUNGS: Breath sounds equal, clear to auscultation bilaterally, HEART: Regular rate and rhythm, S1, S2 without murmur, rub or gallop. ABDOMEN: Soft, nontender, nondistended, normoactive bowel sounds, EXTREMITIES: 2+ pulses, warm, well-perfused, no edema. PSYCH: Normal mood, normal affect. SKIN: Warm, dry, normal turgor, no rashes or lesions noted CBCD WBC 26.6 K/mm3 (4.0-10.0) H 02/12/19 05:30 RBC 2.69 M/mm3 (4.00-5.60) L 02/12/19 05:30 Hgb 8.2 GM/dL (11.7-16.9) L 02/12/19 05:30 Hct 26.0 % (35.4-49) L 02/12/19 05:30 MCV 96.8 fl (80-96) H 02/12/19 05:30 MCHC 31.5 g/dl (32.0-35.9) L 02/12/19 05:30 RDW 29.2 % (11.9-15.9) H 02/12/19 05:30 Plt Count 218 K/MM3 (134-434) 02/12/19 05:30 MPV 10.7 fl (7.5-11.1) 02/12/19 05:30 CMP Sodium 133 mmol/L (136-145) L 02/12/19 05:30 Potassium 5.2 mmol/L (3.5-5.1) H 02/12/19 05:30 Chloride 102 mmol/L (98-107) 02/12/19 05:30 Carbon Dioxide 26 mmol/L (21-32) 02/12/19 05:30 Anion Gap 5 MMOL/L (8-16) L 02/12/19 05:30 BUN 54 mg/dL (7-18) H 02/12/19 05:30 Creatinine 1.8 mg/dL (0.55-1.3) H 02/12/19 05:30 Creat Clearance w eGFR 37.38 (>60) 02/12/19 05:30 Glucose 130 mg/dL (65-99) H 02/07/19 05:30 Calcium 8.2 mg/dL (8.5-10.1) L 02/12/19 05:30 Total Bilirubin 1.1 mg/dL (0.2-1) H 02/11/19 05:30 AST 78 U/L (15-37) H 02/11/19 05:30 ALT 234 U/L (13-61) H 02/11/19 05:30 Alkaline Phosphatase 53 U/L (45-117) 02/11/19 05:30 Total Protein 7.3 g/dl (6.4-8.2) 02/11/19 05:30 Albumin 3.1 g/dl (3.4-5.0) L 02/11/19 05:30 Active Medications Albuterol Sulfate (Ventolin 0.083% Nebulizer Soln -) 1 amp NEB Q4H PRN PRN Reason: SHORTNESS OF BREATH Last Admin: 02/10/19 19:20 Dose: 1 amp Apixaban (Eliquis -) 5 mg PO BID [facility] Last Admin: 02/11/19 22:46 Dose: 5 mg Docusate Sodium (Colace -) 100 mg PO Q12H PRN PRN Reason: CONSTIPATION Last Admin: 02/11/19 22:46 Dose: 100 mg Folic Acid (Folic Acid -) 1 mg PO DAILY [facility] Last Admin: 02/11/19 09:10 Dose: 1 mg Guaifenesin (Mucinex -) 600 mg PO BID [facility] Last Admin: 02/11/19 22:46 Dose: 600 mg Insulin Aspart (Novolog Vial Sliding Scale -) 1 vial SQ ACHS [facility]; Protocol Last Admin: 02/12/19 06:47 Dose: Not Given Insulin Detemir (Levemir Vial) 20 units SQ AM [facility] Last Admin: 02/12/19 06:49 Dose: 20 unit Lidocaine (Lidoderm Patch -) 1 patch TP DAILY [facility] Last Admin: 02/11/19 09:07 Dose: 1 patch Metoprolol Succinate (Toprol Xl -) 100 mg PO BID [facility] Last Admin: 02/11/19 22:47 Dose: 100 mg Miscellaneous (Lidoderm Patch Removal) 1 each MC DAILY@2200 [facility] Last Admin: 02/11/19 22:46 Dose: 1 each Non-Formulary Medication (Linaclotide [Linzess]) 145 mcg PO DAILY [facility] Cgieo-3-Oxlx Ethyl Esters (Lovaza -) 2 gm PO BID [facility] Last Admin: 02/11/19 22:46 Dose: 2 gm Pantoprazole Sodium (Protonix -) 40 mg PO DAILY [facility] Last Admin: 02/11/19 10:49 Dose: 40 mg Polyethylene Glycol (Miralax (For Daily Use) -) 17 gm PO DAILY [facility] Last Admin: 02/11/19 10:53 Dose: 17 gm Ranolazine (Ranexa -) 1,000 mg PO BID [facility] Last Admin: 02/11/19 22:45 Dose: 1,000 mg Umeclidinium/Vilanterol (Anoro Ellipta 62.5-25 Mcg Inh) 1 puff IH DAILY [facility] Last Admin: 02/11/19 10:51 Dose: 1 puff ASSESSMENT/PLAN: 73 yo M h/o HTN, DM, hypercholesterolemia, COPD, chronic hypoxic respiratory failure on home O2, CAD s/p CABG, JARET, CKD,who is here for septic shock which has resolved. 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 Cardio - hx HF pEF - continue eliquis, continue toprolol BID - hold amiodarone for elevated LFT's ( trending down, reconsider restarting) - ranolazine 1000 mg BID for angina Pulm - patient tolerating nasal cannula - keep O2 above 90 GI - continue folate and thiamine for alcohol usage - AST and ALT trending down - US: borderline hepatomegaly with coarse and dense echo texture suggestive of mild fatty infiltrate - CT: free intraperitoneal fluid, splenomegaly - continue bowel regime ID - septic shock resolved - off Zosyn - white count likely reactive, as discussed by heme, slowly trending down - Ucx, blood cx negative, no growth and afebrile Renal - JANETH on CKD, getting better - followed by Dr. Kim - Avoid nephrotoxic agent - lasix 20 mg today Endo - hx DM - hold metformin - continue SS - 8 units in 24 hours FEN - monitor lytes - diabetic diet/ low potassium Prophy - on home eliquis Dispo: patient has been stable, can be monitored on med/surg Visit type - Emergency Visit Emergency Visit: No - New Patient This patient is new to me today: No - Critical Care Critical Care patient: Yes Total Critical Care Time (in minutes): 30 Critical Care Statement: The care of this patient involved high complexity decision making to prevent further life threatening deterioration of the patient 's condition and/or to evaluate & treat vital organ system(s) failure or risk of failure.
[2019-02-12] MEDS: LIDOCAINE 5% TOPICAL PATCH TP SCH (09:52)
[2019-02-12] MEDS: FOLIC ACID 1 MG TABLET (FP) PO SCH (09:54)
[2019-02-12] MEDS: RANOLAZINE E.R. 1,000 MG TABLET (FP) PO SCH ×2 (09:54→21:12)
[2019-02-12] MEDS: guaiFENesin 600 MG TABLET.ER (FP) PO SCH ×2 (09:54→21:11)
[2019-02-12] MEDS: APIXABAN 5 MG TABLET PO SCH ×2 (09:54→21:11)
[2019-02-12] MEDS: DOCUSATE SODIUM 100 MG CAPSULE (FP) PO PRN (09:54)
[2019-02-12] MEDS: PANTOPRAZOLE 40 MG TABLET (FP) PO SCH (09:55)
[2019-02-12] MEDS: OMEGA-3 ACID ETHYL ESTERS (FATTY-ACIDS) 1 GM CAPSULE (FP) PO SCH ×2 (09:55→21:11)
[2019-02-12] MEDS: UMECLIDINIUM/VILANTEROL (ANORO) 62.5/25 MCG INHALER IH SCH (10:00)
[2019-02-12] MEDS ORDERED: SODIUM POLYSTYRENE SULFONATE 15 GM/60 ML BOTTLE PO ONE (11:45)
--- NOTE | 2019-02-12 12:30 | PN ---
Teaching Attending Note Name of Resident: Rhonda Schroeder ATTENDING PHYSICIAN STATEMENT I saw and evaluated the patient. I reviewed the resident's note and discussed the case with the resident. I agree with the resident's findings and plan as documented. SUBJECTIVE: Pt seen and examined in the ICU. States breathing is stable. No fevers recorded. BiPAP overnight. OBJECTIVE: Vital Signs Period Temp Pulse Resp BP Sys/Renteria Pulse Ox Last 24 Hr 97.3 F-98.3 F 64-72 18-22 101-119/44-64 97-97 Intake & Output 02/09/19 02/10/19 02/11/19 02/12/19 23:59 23:59 23:59 23:59 Intake Total 1960 2530 1040 Output Total 2700 1450 930 Balance -740 1080 110 Weight 103.328 kg 104.417 kg Gen: NAD in chair Heart: RRR Lung: decreased breath sounds at the bases Abd: soft, nontender Ext: + edema CBC, BMP 02/12/19 05:30 02/12/19 05:30 Active Medications Albuterol Sulfate (Ventolin 0.083% Nebulizer Soln -) 1 amp NEB Q4H PRN PRN Reason: SHORTNESS OF BREATH Last Admin: 02/10/19 19:20 Dose: 1 amp Apixaban (Eliquis -) 5 mg PO BID [facility] Last Admin: 02/12/19 09:54 Dose: 5 mg Docusate Sodium (Colace -) 100 mg PO Q12H PRN PRN Reason: CONSTIPATION Last Admin: 02/12/19 09:54 Dose: 100 mg Folic Acid (Folic Acid -) 1 mg PO DAILY [facility] Last Admin: 02/12/19 09:54 Dose: 1 mg Guaifenesin (Mucinex -) 600 mg PO BID [facility] Last Admin: 02/12/19 09:54 Dose: 600 mg Insulin Aspart (Novolog Vial Sliding Scale -) 1 vial SQ ACHS [facility]; Protocol Last Admin: 02/12/19 06:47 Dose: Not Given Insulin Detemir (Levemir Vial) 20 units SQ AM [facility] Last Admin: 02/12/19 06:49 Dose: 20 unit Lidocaine (Lidoderm Patch -) 1 patch TP DAILY [facility] Last Admin: 02/12/19 09:52 Dose: 1 patch Metoprolol Succinate (Toprol Xl -) 100 mg PO BID [facility] Last Admin: 02/12/19 09:54 Dose: 100 mg Miscellaneous (Lidoderm Patch Removal) 1 each MC DAILY@2200 [facility] Last Admin: 02/11/19 22:46 Dose: 1 each Non-Formulary Medication (Linaclotide [Linzess]) 145 mcg PO DAILY [facility] Atpua-7-Bpin Ethyl Esters (Lovaza -) 2 gm PO BID [facility] Last Admin: 02/12/19 09:55 Dose: 2 gm Pantoprazole Sodium (Protonix -) 40 mg PO DAILY [facility] Last Admin: 02/12/19 09:55 Dose: 40 mg Polyethylene Glycol (Miralax (For Daily Use) -) 17 gm PO DAILY [facility] Last Admin: 02/11/19 10:53 Dose: 17 gm Ranolazine (Ranexa -) 1,000 mg PO BID [facility] Last Admin: 02/12/19 09:54 Dose: 1,000 mg Umeclidinium/Vilanterol (Anoro Ellipta 62.5-25 Mcg Inh) 1 puff IH DAILY [facility] Last Admin: 02/12/19 10:00 Dose: 1 puff ASSESSMENT AND PLAN: Acute on Chronic Hypoxic Respiratory Failure Pneumonia Septic Shock improving COPD Acute on Chronic Systolic/Diastolic Heart Failure Paroxysmal Atrial Fibrillation Obstructive Sleep Apnea CKD HTN DM Hypercholesterolemia - completed antibiotics - O2 to keep Spo2 >90% - inhaled bronchodilators - CPAP at night - rate controlled - continue anticoagulation - can monitor on floor Problem List - Problems (1) Acute on chronic diastolic (congestive) heart failure Code(s): I50.33 - ACUTE ON CHRONIC DIASTOLIC (CONGESTIVE) HEART FAILURE
[2019-02-12] MEDS ORDERED: FUROSEMIDE 20 MG TABLET (FP) PO ONE (13:41)
--- NOTE | 2019-02-12 14:00 | PN ---
Progress Note (short form) - Note Progress Note: more alert sitting at the side of the bed Vital Signs Period Temp Pulse Resp BP Sys/Renteria Pulse Ox Last 24 Hr 97.3 F-98.3 F 64-72 13- 101-119/44-64 97-97 cor-rrr lungs decreased bs at bases abd protuberant, firm, NT ext no edema CBC, BMP 02/12/19 05:30 02/12/19 05:30 Microbiology 02/07/19 13:47 Blood - Peripheral Venous Blood Culture - Final NO GROWTH AFTER 5 DAYS INCUBATION 02/07/19 13:40 Blood - Peripheral Venous Blood Culture - Final NO GROWTH AFTER 5 DAYS INCUBATION 02/09/19 12:30 Sputum - Expectorated Gram Stain - Final 02/09/19 12:30 Sputum - Expectorated Sputum Culture - Final NORMAL RESPIRATORY [facility] 02/08/19 06:00 Urine - Urine - Catheterized Urine Culture - Final NO GROWTH OBTAINED 02/04/19 01:00 Blood - Peripheral Venous Blood Culture - Final NO GROWTH AFTER 5 DAYS INCUBATION 02/04/19 01:00 Blood - Peripheral Venous Blood Culture - Final NO GROWTH AFTER 5 DAYS INCUBATION 02/04/19 16:00 Urine - Urine Hinds Urine Culture - Final NO GROWTH OBTAINED 02/02/19 16:00 Sputum - Expectorated Gram Stain - Final 02/02/19 16:00 Sputum - Expectorated Sputum Culture - Final NORMAL RESPIRATORY [facility] 02/04/19 16:00 Urine For Antigen Detection Legionella Antigen - Final 02/04/19 16:00 Urine For Antigen Detection Streptococcus pneumoniae Antigen (M - Final 02/03/19 20:20 Urine - Urine Hinds Urine Culture - Final NO GROWTH OBTAINED chest ct- bilateral patchy infiltrates abd/pelvis- peripancreatic fluid, cholelithiasis, no cholycystitis, splenomegaly Current Medications Albuterol Sulfate (Ventolin 0.083% Nebulizer Soln -) 1 amp NEB Q4H PRN PRN Reason: SHORTNESS OF BREATH Last Admin: 02/10/19 19:20 Dose: 1 amp Apixaban (Eliquis -) 5 mg PO BID [facility] Last Admin: 02/12/19 09:54 Dose: 5 mg Docusate Sodium (Colace -) 100 mg PO Q12H PRN PRN Reason: CONSTIPATION Last Admin: 02/12/19 09:54 Dose: 100 mg Folic Acid (Folic Acid -) 1 mg PO DAILY [facility] Last Admin: 02/12/19 09:54 Dose: 1 mg Furosemide (Lasix -) 20 mg PO ONCE ONE Stop: 02/12/19 13:42 Guaifenesin (Mucinex -) 600 mg PO BID [facility] Last Admin: 02/12/19 09:54 Dose: 600 mg Insulin Aspart (Novolog Vial Sliding Scale -) 1 vial SQ ACHS [facility]; Protocol Last Admin: 02/12/19 06:47 Dose: Not Given Insulin Detemir (Levemir Vial) 20 units SQ AM [facility] Last Admin: 02/12/19 06:49 Dose: 20 unit Lidocaine (Lidoderm Patch -) 1 patch TP DAILY [facility] Last Admin: 02/12/19 09:52 Dose: 1 patch Metoprolol Succinate (Toprol Xl -) 100 mg PO BID [facility] Last Admin: 02/12/19 09:54 Dose: 100 mg Miscellaneous (Lidoderm Patch Removal) 1 each MC DAILY@2200 [facility] Last Admin: 02/11/19 22:46 Dose: 1 each Non-Formulary Medication (Linaclotide [Linzess]) 145 mcg PO DAILY [facility] Ftsta-6-Eyun Ethyl Esters (Lovaza -) 2 gm PO BID [facility] Last Admin: 02/12/19 09:55 Dose: 2 gm Pantoprazole Sodium (Protonix -) 40 mg PO DAILY [facility] Last Admin: 02/12/19 09:55 Dose: 40 mg Polyethylene Glycol (Miralax (For Daily Use) -) 17 gm PO DAILY [facility] Last Admin: 02/11/19 10:53 Dose: 17 gm Ranolazine (Ranexa -) 1,000 mg PO BID [facility] Last Admin: 02/12/19 09:54 Dose: 1,000 mg Umeclidinium/Vilanterol (Anoro Ellipta 62.5-25 Mcg Inh) 1 puff IH DAILY [facility] Last Admin: 02/12/19 10:00 Dose: 1 puff a/p leukocytosis persists-observe off antibiotics remains afebrile repeat cxray unchanged repeat cbc in am chf copd ckd-improved abnl lfts improving- ?hepatic congestion Problem List - Problems (1) Fever Code(s): R50.9 - FEVER, UNSPECIFIED (2) Pneumonia Code(s): J18.9 - PNEUMONIA, UNSPECIFIED ORGANISM (3) Rib fractures Code(s): S22.39XA - FRACTURE OF ONE RIB, UNSP SIDE, INIT FOR CLOS FX (4) Acute on chronic diastolic (congestive) heart failure Code(s): I50.33 - ACUTE ON CHRONIC DIASTOLIC (CONGESTIVE) HEART FAILURE (5) COPD (chronic obstructive pulmonary disease) Code(s): J44.9 - CHRONIC OBSTRUCTIVE PULMONARY DISEASE, UNSPECIFIED (6) CKD (chronic kidney disease) Code(s): N18.9 - CHRONIC KIDNEY DISEASE, UNSPECIFIED
--- NOTE | 2019-02-12 14:05 | PN ---
Progress Note, Physician History of Present Illness: Pt seen and examined at bedside. He is out of bed to chair. He complains of lower ext edema. - Current Medication List Current Medications: Active Medications Albuterol Sulfate (Ventolin 0.083% Nebulizer Soln -) 1 amp NEB Q4H PRN PRN Reason: SHORTNESS OF BREATH Last Admin: 02/10/19 19:20 Dose: 1 amp Apixaban (Eliquis -) 5 mg PO BID [facility] Last Admin: 02/12/19 09:54 Dose: 5 mg Docusate Sodium (Colace -) 100 mg PO Q12H PRN PRN Reason: CONSTIPATION Last Admin: 02/12/19 09:54 Dose: 100 mg Folic Acid (Folic Acid -) 1 mg PO DAILY [facility] Last Admin: 02/12/19 09:54 Dose: 1 mg Guaifenesin (Mucinex -) 600 mg PO BID [facility] Last Admin: 02/12/19 09:54 Dose: 600 mg Insulin Aspart (Novolog Vial Sliding Scale -) 1 vial SQ [facility]; Protocol Last Admin: 02/12/19 06:47 Dose: Not Given Insulin Detemir (Levemir Vial) 20 units SQ AM [facility] Last Admin: 02/12/19 06:49 Dose: 20 unit Lidocaine (Lidoderm Patch -) 1 patch TP DAILY [facility] Last Admin: 02/12/19 09:52 Dose: 1 patch Metoprolol Succinate (Toprol Xl -) 100 mg PO BID [facility] Last Admin: 02/12/19 09:54 Dose: 100 mg Miscellaneous (Lidoderm Patch Removal) 1 each MC DAILY@2200 [facility] Last Admin: 02/11/19 22:46 Dose: 1 each Non-Formulary Medication (Linaclotide [Linzess]) 145 mcg PO DAILY [facility] Tyhup-4-Zpxg Ethyl Esters (Lovaza -) 2 gm PO BID [facility] Last Admin: 02/12/19 09:55 Dose: 2 gm Pantoprazole Sodium (Protonix -) 40 mg PO DAILY [facility] Last Admin: 02/12/19 09:55 Dose: 40 mg Polyethylene Glycol (Miralax (For Daily Use) -) 17 gm PO DAILY [facility] Last Admin: 02/11/19 10:53 Dose: 17 gm Ranolazine (Ranexa -) 1,000 mg PO BID [facility] Last Admin: 02/12/19 09:54 Dose: 1,000 mg Umeclidinium/Vilanterol (Anoro Ellipta 62.5-25 Mcg Inh) 1 puff IH DAILY [facility] Last Admin: 02/12/19 10:00 Dose: 1 puff - Objective Vital Signs: Vital Signs Temperature 97.8 F 02/12/19 10:00 Pulse Rate 70 02/12/19 12:00 Respiratory Rate 13 02/12/19 12:00 Blood Pressure 115/62 02/12/19 12:00 O2 Sat by Pulse Oximetry (%) 97 02/12/19 09:00 Constitutional: Yes: Calm Eyes: Yes: Conjunctiva Clear HENT: Yes: Atraumatic Cardiovascular: Yes: S1, S2 Respiratory: Yes: On Nasal O2 Gastrointestinal: Yes: Soft Genitourinary: Yes: WNL Extremities: Yes: WNL Edema: Yes Edema: LLE: 1+, RLE: 1+ Neurological: Yes: Oriented Psychiatric: Yes: Oriented Labs: CBC, BMP 02/12/19 05:30 02/12/19 05:30 INR, PTT INR 1.40 (0.83-1.09) H 02/10/19 05:30 Assessment/Plan Current Medications Generic Name Dose Route Start Last Admin Trade Name Freq PRN Reason Stop Dose Admin Albuterol Sulfate 1 amp 02/09/19 01:11 02/10/19 19:20 Ventolin 0.083% Nebulizer Soln - NEB 1 amp Q4H PRN Administration SHORTNESS OF BREATH Apixaban 5 mg 02/10/19 22:00 02/12/19 09:54 Eliquis - PO 5 mg BID [facility] Administration Docusate Sodium 100 mg 02/08/19 21:11 02/12/19 09:54 Colace - PO 100 mg Q12H PRN Administration CONSTIPATION Folic Acid 1 mg 02/02/19 10:00 02/12/19 09:54 Folic Acid - PO 1 mg DAILY [facility] Administration Guaifenesin 600 mg 02/10/19 10:00 02/12/19 09:54 Mucinex - PO 600 mg BID [facility] Administration Insulin Aspart 1 vial 02/02/19 07:00 02/12/19 06:47 Novolog Vial Sliding Scale - SQ Not Given ACHS [facility] Protocol Insulin Detemir 20 units 02/02/19 08:15 02/12/19 06:49 Levemir Vial SQ 20 unit AM [facility] Administration Lidocaine 1 patch 02/03/19 11:45 02/12/19 09:52 Lidoderm Patch - TP 1 patch DAILY [facility] Administration Metoprolol Succinate 100 mg 02/07/19 01:42 02/12/19 09:54 Toprol Xl - PO 100 mg BID [facility] Administration Miscellaneous 1 each 02/03/19 22:00 02/11/19 22:46 Lidoderm Patch Removal MC 1 each DAILY@2200 [facility] Administration Non-Formulary Medication 145 mcg 02/02/19 10:00 Linaclotide [Linzess] PO DAILY [facility] Dlmin-2-Ltvn Ethyl Esters 2 gm 02/02/19 22:00 02/12/19 09:55 Lovaza - PO 2 gm BID [facility] Administration Pantoprazole Sodium 40 mg 02/11/19 10:00 02/12/19 09:55 Protonix - PO 40 mg DAILY [facility] Administration Polyethylene Glycol 17 gm 02/02/19 10:00 02/11/19 10:53 Miralax (For Daily Use) - PO 17 gm DAILY [facility] Administration Ranolazine 1,000 mg 02/02/19 10:00 02/12/19 09:54 Ranexa - PO 1,000 mg BID [facility] Administration Umeclidinium/Vilanterol 1 puff 02/02/19 10:00 02/12/19 10:00 Anoro Ellipta 62.5-25 Mcg Inh IH 1 puff DAILY [facility] Administration Impression 1. CKD 2. HTN 3. DM 4. resp failure requiring bipap 5. anemia 6. CHF 7. JANETH Plan - cont to monitor renal function - start lasix 20 mg daily and observe - low potassium diet - lasix should help with potassium, pt was on lasix 20 mg twice a day at home - repeat cxr in am - discussed with ICU team - arb on hold
[2019-02-12] MEDS: POLYETHYLENE GLYCOL 3350 119 GM BTL PO SCH (14:09)
[2019-02-12] MEDS ORDERED: ATROPINE SULFATE 1 MG/10 ML DISP.SYRIN ONE (16:46)
[2019-02-12] MEDS: LIDOCAINE PATCH REMOVAL MC SCH (21:12)
[2019-02-12] MEDS ORDERED: morphine SULFATE 4 MG/ML VIAL IVPUSH ONE (22:19)
--- NOTE | 2019-02-13 05:16 | PN ---
Progress Note, Physician Chief Complaint: A&Ox3; OOB in chair, and able to ambulate to bathroom with assistance; denies chest pain or dyspnea. History of Present Illness: Mr. Vergara is a 73 year old man with a PMH of CABG 2004 (? hx [place]), AF, CHF ( likely systolic: pt has ICD), anemia, COPD on O2, sleep apnea, diabetes, HTN, hypercholesterolemia, thyroid disease, who was recently discharged after hospitalization for shortness of breath;returns after ecchymosis noted on right lateral chest. Pt denied fall and attributed bruise to intense pruritus. History of falls, the last 2 months ago; walks with cane and walker. - Current Medication List Current Medications: Active Medications Albuterol Sulfate (Ventolin 0.083% Nebulizer Soln -) 1 amp NEB Q4H PRN PRN Reason: SHORTNESS OF BREATH Last Admin: 02/10/19 19:20 Dose: 1 amp Apixaban (Eliquis -) 5 mg PO BID [facility] Last Admin: 02/12/19 21:11 Dose: 5 mg Docusate Sodium (Colace -) 100 mg PO Q12H PRN PRN Reason: CONSTIPATION Last Admin: 02/12/19 09:54 Dose: 100 mg Folic Acid (Folic Acid -) 1 mg PO DAILY [facility] Last Admin: 02/12/19 09:54 Dose: 1 mg Guaifenesin (Mucinex -) 600 mg PO BID [facility] Last Admin: 02/12/19 21:11 Dose: 600 mg Insulin Aspart (Novolog Vial Sliding Scale -) 1 vial SQ ACHS [facility]; Protocol Last Admin: 02/12/19 21:11 Dose: 2 unit Insulin Detemir (Levemir Vial) 20 units SQ AM [facility] Last Admin: 02/12/19 06:49 Dose: 20 unit Lidocaine (Lidoderm Patch -) 1 patch TP DAILY [facility] Last Admin: 02/12/19 09:52 Dose: 1 patch Metoprolol Succinate (Toprol Xl -) 100 mg PO BID [facility] Last Admin: 02/12/19 21:22 Dose: 100 mg Miscellaneous (Lidoderm Patch Removal) 1 each MC DAILY@2200 [facility] Last Admin: 02/12/19 21:12 Dose: 1 each Non-Formulary Medication (Linaclotide [Linzess]) 145 mcg PO DAILY [facility] Xkhdo-4-Gykg Ethyl Esters (Lovaza -) 2 gm PO BID [facility] Last Admin: 02/12/19 21:11 Dose: 2 gm Pantoprazole Sodium (Protonix -) 40 mg PO DAILY [facility] Last Admin: 02/12/19 09:55 Dose: 40 mg Polyethylene Glycol (Miralax (For Daily Use) -) 17 gm PO DAILY [facility] Last Admin: 02/12/19 14:09 Dose: Not Given Ranolazine (Ranexa -) 1,000 mg PO BID [facility] Last Admin: 02/12/19 21:12 Dose: 1,000 mg Umeclidinium/Vilanterol (Anoro Ellipta 62.5-25 Mcg Inh) 1 puff IH DAILY [facility] Last Admin: 02/12/19 10:00 Dose: 1 puff - Objective Vital Signs: Vital Signs Temperature 98.4 F 02/13/19 02:00 Pulse Rate 66 02/13/19 02:00 Respiratory Rate 14 02/13/19 02:00 Blood Pressure 113/56 L 02/13/19 02:00 O2 Sat by Pulse Oximetry (%) 99 02/12/19 19:46 Constitutional: Yes: Calm Eyes: Yes: WNL HENT: Yes: WNL Neck: Yes: WNL Cardiovascular: Yes: S1, S2 Respiratory: Yes: Regular Gastrointestinal: Yes: Soft ...Rectal Exam: Yes: Deferred Genitourinary: Yes: Anuria Breast(s): Yes: WNL Musculoskeletal: Yes: Muscle Weakness Extremities: Yes: Cool Edema: No Peripheral Pulses WNL: Yes Integumentary: Yes: WNL Neurological: Yes: Alert, Oriented, Weakness Psychiatric: Yes: Alert, Oriented Labs: CBC, BMP 02/12/19 05:30 02/12/19 05:30 INR, PTT INR 1.40 (0.83-1.09) H 02/10/19 05:30 Abnormal Lab Results 02/12/19 02/12/19 05:30 05:30 WBC 26.6 H RBC 2.69 L Hgb 8.2 L Hct 26.0 L MCV 96.8 H MCHC 31.5 L RDW 29.2 H Sodium 133 L Potassium 5.2 H Anion Gap 5 L BUN 54 H Creatinine 1.8 H Random Glucose 139 H Calcium 8.2 L Magnesium 2.5 H - ....Imaging Chest X-ray: Image Reviewed (mild congestive changes; enlarged heart; ICD) Other: Image Reviewed (telemetry: AF) Problem List - Problems (1) Atrial fibrillation Assessment/Plan: On metoprolol ER for HR control. On apixaban 5 mg bid for anticoagulation. [employer] ICD interrogation today notes shock delivered in past weeks for rapid HR, though apparently for AF: modify parameters; on beta blockers; keep electrolytes WNL and hydrate. Code(s): I48.91 - UNSPECIFIED ATRIAL FIBRILLATION (2) Abnormal liver function test Assessment/Plan: improving since admission, resolution of septic shock. Code(s): R94.5 - ABNORMAL RESULTS OF LIVER FUNCTION STUDIES (3) Hx of CABG Code(s): Z95.1 - PRESENCE OF AORTOCORONARY BYPASS GRAFT (4) Anemia Code(s): D64.9 - ANEMIA, UNSPECIFIED (5) HTN (hypertension) Assessment/Plan: On metoprolol ER. Pt has HTN, CAD, and DM, but elevated K+ precludes use of ACEI or ARB. F/u repeat ECHO for LVEF. Code(s): I10 - ESSENTIAL (PRIMARY) HYPERTENSION Qualifiers: Hypertension type: essential hypertension Qualified Code(s): I10 - Essential (primary) hypertension (6) Heart failure Assessment/Plan: Unable to assess LVEF recently; will order repeat ECHO now that pt is better able to change positioning, hopefully allowing better acoustic windows. Code(s): I50.9 - HEART FAILURE, UNSPECIFIED (7) History of heart artery stent Code(s): Z95.5 - PRESENCE OF CORONARY ANGIOPLASTY IMPLANT AND GRAFT (8) Sleep apnea Assessment/Plan: Rx per [facility]. Code(s): G47.30 - SLEEP APNEA, UNSPECIFIED Qualifiers: Sleep apnea type: unspecified type Qualified Code(s): G47.30 - Sleep apnea , unspecified (9) Septic shock Assessment/Plan: off antibiotics. F/u repeat ECHO for LVEF. Encourage fluids (recently elevated BUN, Cr, K+). Avoid diuretics. Code(s): A41.9 - SEPSIS, UNSPECIFIED ORGANISM; R65.21 - SEVERE SEPSIS WITH SEPTIC SHOCK (10) Diabetes Code(s): E11.9 - TYPE 2 DIABETES MELLITUS WITHOUT COMPLICATIONS Qualifiers: Diabetes mellitus type: type 2 Assessment/Plan CCU time spent: 35 minutes.
[2019-02-13] MEDS: INSULIN SLIDING SCALE (NOVOLOG) 1 VIAL SQ SCH ×4 (06:09→21:50)
[2019-02-13 06:44] LABS: HEMATOCRIT 26.7 % (35.4-49); HEMOGLOBIN 8.5 GM/dL (11.7-16.9); MCH 31.1 pg (25.7-33.7); MEAN CELL VOLUME 97.2 fl (80-96); MEAN PLT VOLUME 9.1 fl (7.5-11.1); PLATELET COUNT 201 K/MM3 (134-434); RBC 2.74 M/mm3 (4.00-5.60); RDW 30.5 % (11.9-15.9); WHITE BLOOD COUNT 18.6 K/mm3 (4.0-10.0)
[2019-02-13] MEDS: INSULIN (LEVEMIR) 100 UNITS/ML UNITS SQ SCH (06:48)
[2019-02-13 07:15] LABS: ALBUMIN 3.2 g/dl (3.4-5.0); ALK PHOS 50 U/L (45-117); ANION GAP 4 MMOL/L (8-16); BLOOD UREA NITROGEN 47 mg/dL (7-18); CALCIUM 8.4 mg/dL (8.5-10.1); CHLORIDE 102 mmol/L (98-107); CO2 29 mmol/L (21-32); CREATININE 1.6 mg/dL (0.55-1.3); GLUCOSE,RANDOM 73 mg/dL (74-106); MAGNESIUM 2.5 mg/dL (1.8-2.4); PHOSPHOROUS 3.6 mg/dL (2.5-4.9); POTASSIUM 4.7 mmol/L (3.5-5.1); SGOT/AST 50 U/L (15-37); SGPT/ALT 160 U/L (13-61); SODIUM 134 mmol/L (136-145); TOT PROT 7.6 g/dl (6.4-8.2)
[2019-02-13] MEDS ORDERED: FUROSEMIDE 40 MG TABLET (FP) PO ONE (08:30)
--- NOTE | 2019-02-13 09:14 | PN ---
Progress Note, Physician - Current Medication List Current Medications: Active Medications Albuterol Sulfate (Ventolin 0.083% Nebulizer Soln -) 1 amp NEB Q4H PRN PRN Reason: SHORTNESS OF BREATH Last Admin: 02/10/19 19:20 Dose: 1 amp Apixaban (Eliquis -) 5 mg PO BID [facility] Last Admin: 02/12/19 21:11 Dose: 5 mg Docusate Sodium (Colace -) 100 mg PO Q12H PRN PRN Reason: CONSTIPATION Last Admin: 02/12/19 09:54 Dose: 100 mg Folic Acid (Folic Acid -) 1 mg PO DAILY [facility] Last Admin: 02/12/19 09:54 Dose: 1 mg Guaifenesin (Mucinex -) 600 mg PO BID [facility] Last Admin: 02/12/19 21:11 Dose: 600 mg Insulin Aspart (Novolog Vial Sliding Scale -) 1 vial SQ ACHS [facility]; Protocol Last Admin: 02/13/19 06:09 Dose: Not Given Insulin Detemir (Levemir Vial) 20 units SQ AM [facility] Last Admin: 02/13/19 06:48 Dose: 20 unit Lidocaine (Lidoderm Patch -) 1 patch TP DAILY [facility] Last Admin: 02/12/19 09:52 Dose: 1 patch Metoprolol Succinate (Toprol Xl -) 100 mg PO BID [facility] Last Admin: 02/12/19 21:22 Dose: 100 mg Miscellaneous (Lidoderm Patch Removal) 1 each MC DAILY@2200 [facility] Last Admin: 02/12/19 21:12 Dose: 1 each Non-Formulary Medication (Linaclotide [Linzess]) 145 mcg PO DAILY [facility] Bqlqb-6-Oitk Ethyl Esters (Lovaza -) 2 gm PO BID [facility] Last Admin: 02/12/19 21:11 Dose: 2 gm Pantoprazole Sodium (Protonix -) 40 mg PO DAILY [facility] Last Admin: 02/12/19 09:55 Dose: 40 mg Polyethylene Glycol (Miralax (For Daily Use) -) 17 gm PO DAILY [facility] Last Admin: 02/12/19 14:09 Dose: Not Given Ranolazine (Ranexa -) 1,000 mg PO BID [facility] Last Admin: 02/12/19 21:12 Dose: 1,000 mg Umeclidinium/Vilanterol (Anoro Ellipta 62.5-25 Mcg Inh) 1 puff IH DAILY [facility] Last Admin: 02/12/19 10:00 Dose: 1 puff - Objective Vital Signs: Vital Signs Temperature 97.8 F 02/13/19 08:45 Pulse Rate 66 02/13/19 08:45 Respiratory Rate 18 02/13/19 08:45 Blood Pressure 116/76 02/13/19 08:45 O2 Sat by Pulse Oximetry (%) 95 02/13/19 07:53 Cardiovascular: Yes: Regular Rate and Rhythm Respiratory: Yes: Regular, CTA Bilaterally Gastrointestinal: Yes: Normal Bowel Sounds, Soft Labs: CBC, BMP 02/13/19 05:30 02/13/19 05:30 INR, PTT INR 1.40 (0.83-1.09) H 02/10/19 05:30 Assessment/Plan - Problems (1) Fever Assessment/Plan: Resolved leukocytosis persists ID on board iv abx- per ID Microbiology 02/04/19 16:00 Urine For Antigen Detection Legionella Antigen - Final 02/04/19 16:00 Urine For Antigen Detection Streptococcus pneumoniae Antigen (M - Final 02/04/19 16:00 Urine - Urine Hinds Urine Culture - Final NO GROWTH OBTAINED 02/03/19 20:20 Urine - Urine Hinds Urine Culture - Final NO GROWTH OBTAINED 02/02/19 16:00 Sputum - Expectorated Gram Stain - Final 02/02/19 16:00 Sputum - Expectorated Sputum Culture - Final NORMAL RESPIRATORY [facility] 02/04/19 01:00 Blood - Peripheral Venous Blood Culture - Preliminary NO GROWTH OBTAINED AFTER 72 HOURS, INCUBATION TO CONTINUE FOR 2 DAYS. 02/04/19 01:00 Blood - Peripheral Venous Blood Culture - Preliminary NO GROWTH OBTAINED AFTER 72 HOURS, INCUBATION TO CONTINUE FOR 2 DAYS. lactic acid trending down Code(s): R50.9 - FEVER, UNSPECIFIED (2) Rib fractures Assessment/Plan: pain control Code(s): S22.39XA - FRACTURE OF ONE RIB, UNSP SIDE, INIT FOR CLOS FX (3) Atrial flutter Assessment/Plan: amiodarone stopped bc of increase lft refused synchronized ERIKA cardioversion toprol Code(s): I48.92 - UNSPECIFIED ATRIAL FLUTTER (4) CKD (chronic kidney disease) Code(s): N18.9 - CHRONIC KIDNEY DISEASE, UNSPECIFIED (5) Diabetes Assessment/Plan: iinsulin bgm Code(s): E11.9 - TYPE 2 DIABETES MELLITUS WITHOUT COMPLICATIONS Qualifiers: Diabetes mellitus type: type 2 (6) COPD (chronic obstructive pulmonary disease) Assessment/Plan: bipap oxygen Code(s): J44.9 - CHRONIC OBSTRUCTIVE PULMONARY DISEASE, UNSPECIFIED (7) Leukocytosis Assessment/Plan: see above hem consult noted PHYSICAL THERAPY---SNF
--- NOTE | 2019-02-13 09:51 | PN ---
Progress Note (short form) - Note Progress Note: oob in chair ate breakfast no complaints Vital Signs Period Temp Pulse Resp BP Sys/Renteria Pulse Ox Last 24 Hr 97.8 F-98.8 F 64-79 13-22 113-121/47-76 95-99 cor-rrr llungs decreased bs at bases abd firm, nt ext +edema CBC, BMP 02/13/19 05:30 02/13/19 05:30 Microbiology 02/07/19 13:47 Blood - Peripheral Venous Blood Culture - Final NO GROWTH AFTER 5 DAYS INCUBATION 02/07/19 13:40 Blood - Peripheral Venous Blood Culture - Final NO GROWTH AFTER 5 DAYS INCUBATION 02/09/19 12:30 Sputum - Expectorated Gram Stain - Final 02/09/19 12:30 Sputum - Expectorated Sputum Culture - Final NORMAL RESPIRATORY HAR[facility]AN 02/08/19 06:00 Urine - Urine - Catheterized Urine Culture - Final NO GROWTH OBTAINED 02/04/19 01:00 Blood - Peripheral Venous Blood Culture - Final NO GROWTH AFTER 5 DAYS INCUBATION 02/04/19 01:00 Blood - Peripheral Venous Blood Culture - Final NO GROWTH AFTER 5 DAYS INCUBATION 02/04/19 16:00 Urine - Urine Hinds Urine Culture - Final NO GROWTH OBTAINED 02/02/19 16:00 Sputum - Expectorated Gram Stain - Final 02/02/19 16:00 Sputum - Expectorated Sputum Culture - Final NORMAL RESPIRATORY [facility] 02/04/19 16:00 Urine For Antigen Detection Legionella Antigen - Final 02/04/19 16:00 Urine For Antigen Detection Streptococcus pneumoniae Antigen (M - Final 02/03/19 20:20 Urine - Urine Hinds Urine Culture - Final NO GROWTH OBTAINED c Current Medications Albuterol Sulfate (Ventolin 0.083% Nebulizer Soln -) 1 amp NEB Q4H PRN PRN Reason: SHORTNESS OF BREATH Last Admin: 02/10/19 19:20 Dose: 1 amp Apixaban (Eliquis -) 5 mg PO BID [facility] Last Admin: 02/12/19 21:11 Dose: 5 mg Docusate Sodium (Colace -) 100 mg PO Q12H PRN PRN Reason: CONSTIPATION Last Admin: 02/12/19 09:54 Dose: 100 mg Folic Acid (Folic Acid -) 1 mg PO DAILY [facility] Last Admin: 02/12/19 09:54 Dose: 1 mg Guaifenesin (Mucinex -) 600 mg PO BID [facility] Last Admin: 02/12/19 21:11 Dose: 600 mg Insulin Aspart (Novolog Vial Sliding Scale -) 1 vial SQ ACHS [facility]; Protocol Last Admin: 02/13/19 06:09 Dose: Not Given Insulin Detemir (Levemir Vial) 20 units SQ AM [facility] Last Admin: 02/13/19 06:48 Dose: 20 unit Lidocaine (Lidoderm Patch -) 1 patch TP DAILY [facility] Last Admin: 02/12/19 09:52 Dose: 1 patch Metoprolol Succinate (Toprol Xl -) 100 mg PO BID [facility] Last Admin: 02/12/19 21:22 Dose: 100 mg Miscellaneous (Lidoderm Patch Removal) 1 each MC DAILY@2200 [facility] Last Admin: 02/12/19 21:12 Dose: 1 each Non-Formulary Medication (Linaclotide [Linzess]) 145 mcg PO DAILY [facility] Trthy-2-Wljz Ethyl Esters (Lovaza -) 2 gm PO BID [facility] Last Admin: 02/12/19 21:11 Dose: 2 gm Pantoprazole Sodium (Protonix -) 40 mg PO DAILY [facility] Last Admin: 02/12/19 09:55 Dose: 40 mg Polyethylene Glycol (Miralax (For Daily Use) -) 17 gm PO DAILY [facility] Last Admin: 02/12/19 14:09 Dose: Not Given Ranolazine (Ranexa -) 1,000 mg PO BID [facility] Last Admin: 02/12/19 21:12 Dose: 1,000 mg Umeclidinium/Vilanterol (Anoro Ellipta 62.5-25 Mcg Inh) 1 puff IH DAILY [facility] Last Admin: 02/12/19 10:00 Dose: 1 puff a/p leukocytosis improving, observe off antibiotics repeat cxray unchanged chf copd ckd-improved abnl lfts improving- ?hepatic congestion d/w dr armijo please call back if needed Problem List - Problems (1) Fever Code(s): R50.9 - FEVER, UNSPECIFIED (2) Pneumonia Code(s): J18.9 - PNEUMONIA, UNSPECIFIED ORGANISM (3) Rib fractures Code(s): S22.39XA - FRACTURE OF ONE RIB, UNSP SIDE, INIT FOR CLOS FX (4) Acute on chronic diastolic (congestive) heart failure Code(s): I50.33 - ACUTE ON CHRONIC DIASTOLIC (CONGESTIVE) HEART FAILURE (5) COPD (chronic obstructive pulmonary disease) Code(s): J44.9 - CHRONIC OBSTRUCTIVE PULMONARY DISEASE, UNSPECIFIED (6) CKD (chronic kidney disease) Code(s): N18.9 - CHRONIC KIDNEY DISEASE, UNSPECIFIED
[2019-02-13] MEDS ORDERED: PT OWN MED DRAWER 7, Y5N ONE ×3 (11:05→21:46)
[2019-02-13] MEDS: PANTOPRAZOLE 40 MG TABLET (FP) PO SCH (11:30)
[2019-02-13] MEDS: OMEGA-3 ACID ETHYL ESTERS (FATTY-ACIDS) 1 GM CAPSULE (FP) PO SCH ×2 (11:30→22:00)
[2019-02-13] MEDS: RANOLAZINE E.R. 1,000 MG TABLET (FP) PO SCH ×2 (11:31→21:44)
[2019-02-13] MEDS: POLYETHYLENE GLYCOL 3350 119 GM BTL PO SCH (11:32)
[2019-02-13] MEDS: APIXABAN 5 MG TABLET PO SCH ×2 (11:32→21:43)
[2019-02-13] MEDS: DOCUSATE SODIUM 100 MG CAPSULE (FP) PO PRN (11:32)
[2019-02-13] MEDS: guaiFENesin 600 MG TABLET.ER (FP) PO SCH ×2 (11:32→21:43)
[2019-02-13] MEDS: LIDOCAINE 5% TOPICAL PATCH TP SCH (11:33)
[2019-02-13] MEDS: FOLIC ACID 1 MG TABLET (FP) PO SCH (11:33)
[2019-02-13] MEDS: UMECLIDINIUM/VILANTEROL (ANORO) 62.5/25 MCG INHALER IH SCH (11:35)
--- NOTE | 2019-02-13 12:03 | PN ---
Progress Note, Physician History of Present Illness: events of last 24 hrs noted - Current Medication List Current Medications: Active Medications Albuterol Sulfate (Ventolin 0.083% Nebulizer Soln -) 1 amp NEB Q4H PRN PRN Reason: SHORTNESS OF BREATH Last Admin: 02/10/19 19:20 Dose: 1 amp Apixaban (Eliquis -) 5 mg PO BID [facility] Last Admin: 02/13/19 11:32 Dose: 5 mg Docusate Sodium (Colace -) 100 mg PO Q12H PRN PRN Reason: CONSTIPATION Last Admin: 02/13/19 11:32 Dose: 100 mg Folic Acid (Folic Acid -) 1 mg PO DAILY [facility] Last Admin: 02/13/19 11:33 Dose: 1 mg Guaifenesin (Mucinex -) 600 mg PO BID [facility] Last Admin: 02/13/19 11:32 Dose: 600 mg Insulin Aspart (Novolog Vial Sliding Scale -) [address] [facility]; Protocol Last Admin: 02/13/19 06:09 Dose: Not Given Insulin Detemir (Levemir Vial) 20 units SQ AM [facility] Last Admin: 02/13/19 06:48 Dose: 20 unit Lidocaine (Lidoderm Patch -) 1 patch TP DAILY [facility] Last Admin: 02/13/19 11:33 Dose: 1 patch Metoprolol Succinate (Toprol Xl -) 100 mg PO BID [facility] Last Admin: 02/13/19 11:33 Dose: 100 mg Miscellaneous (Lidoderm Patch Removal) 1 each MC DAILY@2200 [facility] Last Admin: 02/12/19 21:12 Dose: 1 each Non-Formulary Medication (Linaclotide [Linzess]) 145 mcg PO DAILY [facility] [id number]-7-Ywrk Ethyl Esters (Lovaza -) 2 gm PO BID [facility] Last Admin: 02/13/19 11:30 Dose: 2 gm Pantoprazole Sodium (Protonix -) 40 mg PO DAILY [facility] Last Admin: 02/13/19 11:30 Dose: 40 mg Polyethylene Glycol (Miralax (For Daily Use) -) 17 gm PO DAILY [facility] Last Admin: 02/13/19 11:32 Dose: 17 gm Ranolazine (Ranexa -) 1,000 mg PO BID [facility] Last Admin: 02/13/19 11:31 Dose: 1,000 mg Umeclidinium/Vilanterol (Anoro Ellipta 62.5-25 Mcg Inh) 1 puff IH DAILY [facility] Last Admin: 02/13/19 11:35 Dose: 1 puff - Objective Vital Signs: Vital Signs Temperature 97.8 F 02/13/19 08:45 Pulse Rate 66 02/13/19 08:45 Respiratory Rate 18 02/13/19 08:45 Blood Pressure 116/76 02/13/19 08:45 O2 Sat by Pulse Oximetry (%) 95 02/13/19 07:53 Eyes: Yes: WNL, Conjunctiva Clear, EOM Intact HENT: Yes: WNL, Atraumatic, Normocephalic Neck: Yes: WNL, Supple, Trachea Midline Cardiovascular: Yes: Pulse Irregular, S1, S2 Respiratory: Yes: WNL, Regular, CTA Bilaterally Gastrointestinal: Yes: WNL, Normal Bowel Sounds Genitourinary: Yes: WNL Musculoskeletal: Yes: WNL Extremities: Yes: WNL Edema: No Integumentary: Yes: WNL Neurological: Yes: WNL, Alert, Oriented ...Motor Strength: WNL Psychiatric: Yes: WNL Labs: CBC, BMP 02/13/19 05:30 02/13/19 05:30 INR, PTT INR 1.40 (0.83-1.09) H 02/10/19 05:30 Assessment/Plan - Problems (1) Atrial fibrillation Assessment/Plan: On metoprolol ER for HR control. On apixaban 5 mg bid for anticoagulation. [employer] ICD interrogation today notes shock delivered in past weeks for rapid HR, though apparently for AF: modify parameters; on beta blockers; keep electrolytes WNL and hydrate. Code(s): I48.91 - UNSPECIFIED ATRIAL FIBRILLATION (2) Abnormal liver function test Assessment/Plan: improving since admission, resolution of septic shock. Code(s): R94.5 - ABNORMAL RESULTS OF LIVER FUNCTION STUDIES (3) Hx of CABG Code(s): Z95.1 - PRESENCE OF AORTOCORONARY BYPASS GRAFT (4) Anemia Code(s): D64.9 - ANEMIA, UNSPECIFIED (5) HTN (hypertension) Assessment/Plan: On metoprolol ER. Pt has HTN, CAD, and DM, but elevated K+ precludes use of ACEI or ARB. F/u repeat ECHO for LVEF. Code(s): I10 - ESSENTIAL (PRIMARY) HYPERTENSION Qualifiers: Hypertension type: essential hypertension Qualified Code(s): I10 - Essential (primary) hypertension (6) Heart failure Assessment/Plan: Unable to assess LVEF recently; will order repeat ECHO now that pt is better able to change positioning, hopefully allowing better acoustic windows. Code(s): I50.9 - HEART FAILURE, UNSPECIFIED (7) History of heart artery stent Code(s): Z95.5 - PRESENCE OF CORONARY ANGIOPLASTY IMPLANT AND GRAFT (8) Sleep apnea Assessment/Plan: Rx per oil burner technician. Code(s): G47.30 - SLEEP APNEA, UNSPECIFIED Qualifiers: Sleep apnea type: unspecified type Qualified Code(s): G47.30 - Sleep apnea , unspecified (9) Septic shock Assessment/Plan: off antibiotics. F/u repeat ECHO for LVEF. Encourage fluids (recently elevated BUN, Cr, K+). Avoid diuretics. Code(s): A41.9 - SEPSIS, UNSPECIFIED ORGANISM; R65.21 - SEVERE SEPSIS WITH SEPTIC SHOCK (10) Diabetes Code(s): E11.9 - TYPE 2 DIABETES MELLITUS WITHOUT COMPLICATIONS Qualifiers: Diabetes mellitus type: type 2 Assessment/Plan CCU time spent: 35 minutes.
--- NOTE | 2019-02-13 12:57 | EKG ---
Test Reason : Blood Pressure : / mmHG Vent. Rate : 071 BPM Atrial Rate : 071 BPM P-R Int : 210 ms QRS Dur : 100 ms QT Int : 402 ms P-R-T Axes : 035 045 112 degrees QTc Int : 436 ms SINUS RHYTHM WITH SINUS ARRHYTHMIA WITH 1ST DEGREE A-V BLOCK NONSPECIFIC T WAVE ABNORMALITY ABNORMAL ECG WHEN COMPARED WITH ECG OF 06-FEB-2019 16:05, NONSPECIFIC T WAVE ABNORMALITY, WORSE IN LATERAL LEADS Confirmed by FRANCISCO EDWARDS MD ([id number]) on 02/13/2019 12:56:52 PM Referred By: HOWIE WEBBER DR Confirmed By:FRANCISCO EDWARDS MD
--- NOTE | 2019-02-13 12:57 | PN ---
Teaching Attending Note Name of Resident: Rhonda Schroeder ATTENDING PHYSICIAN STATEMENT I saw and evaluated the patient. I reviewed the resident's note and discussed the case with the resident. I agree with the resident's findings and plan as documented. SUBJECTIVE: Pt seen and examined in the ICU. Denies shortness of breath or chest pain. No cough or wheezing. OBJECTIVE: Vital Signs Period Temp Pulse Resp BP Sys/Renteria Pulse Ox Last 24 Hr 97.8 F-98.8 F 64-79 14-22 113-121/47-76 95-99 Intake & Output 02/10/19 02/11/19 02/12/19 02/13/19 23:59 23:59 23:59 23:59 Intake Total 2530 1040 770 Output Total 1450 930 150 350 Balance 1080 110 620 -350 Weight 103.328 kg 104.417 kg 104.417 kg Gen: NAD in chair Heart: RRR Lung: scattered basilar rales Abd: soft, nontender Ext: + edema CBC, BMP 02/13/19 05:30 02/13/19 05:30 Active Medications Albuterol Sulfate (Ventolin 0.083% Nebulizer Soln -) 1 amp NEB Q4H PRN PRN Reason: SHORTNESS OF BREATH Last Admin: 02/10/19 19:20 Dose: 1 amp Apixaban (Eliquis -) 5 mg PO BID [facility] Last Admin: 02/13/19 11:32 Dose: 5 mg Docusate Sodium (Colace -) 100 mg PO Q12H PRN PRN Reason: CONSTIPATION Last Admin: 02/13/19 11:32 Dose: 100 mg Folic Acid (Folic Acid -) 1 mg PO DAILY [facility] Last Admin: 02/13/19 11:33 Dose: 1 mg Guaifenesin (Mucinex -) 600 mg PO BID [facility] Last Admin: 02/13/19 11:32 Dose: 600 mg Insulin Aspart (Novolog Vial Sliding Scale -) 1 vial SQ ACHS [facility]; Protocol Last Admin: 02/13/19 12:43 Dose: 2 unit Insulin Detemir (Levemir Vial) 20 units SQ AM [facility] Last Admin: 02/13/19 06:48 Dose: 20 unit Lidocaine (Lidoderm Patch -) 1 patch TP DAILY [facility] Last Admin: 02/13/19 11:33 Dose: 1 patch Metoprolol Succinate (Toprol Xl -) 100 mg PO BID [facility] Last Admin: 02/13/19 11:33 Dose: 100 mg Miscellaneous (Lidoderm Patch Removal) 1 each MC DAILY@2200 [facility] Last Admin: 02/12/19 21:12 Dose: 1 each Non-Formulary Medication (Linaclotide [Linzess]) 145 mcg PO DAILY [facility] [id number]-6-[id number] Ethyl Esters (Lovaza -) 2 gm PO BID [facility] Last Admin: 02/13/19 11:30 Dose: 2 gm Pantoprazole Sodium (Protonix -) 40 mg PO DAILY [facility] Last Admin: 02/13/19 11:30 Dose: 40 mg Polyethylene Glycol (Miralax (For Daily Use) -) 17 gm PO DAILY [facility] Last Admin: 02/13/19 11:32 Dose: 17 gm Ranolazine (Ranexa -) 1,000 mg PO BID [facility] Last Admin: 02/13/19 11:31 Dose: 1,000 mg Umeclidinium/Vilanterol (Anoro Ellipta 62.5-25 Mcg Inh) 1 puff IH DAILY [facility] Last Admin: 02/13/19 11:35 Dose: 1 puff ASSESSMENT AND PLAN: Acute on Chronic Hypoxic Respiratory Failure Pneumonia Septic Shock improving COPD Acute on Chronic Systolic/Diastolic Heart Failure Paroxysmal Atrial Fibrillation Obstructive Sleep Apnea CKD HTN DM Hypercholesterolemia - completed antibiotics - O2 to keep Spo2 >90% - inhaled bronchodilators - CPAP at night - rate controlled - continue anticoagulation - lasix as needed - monitor urine output, creatinine - can monitor on floor Problem List - Problems (1) Acute on chronic diastolic (congestive) heart failure Code(s): I50.33 - ACUTE ON CHRONIC DIASTOLIC (CONGESTIVE) HEART FAILURE
--- NOTE | 2019-02-13 13:01 | PN ---
Progress Note, Physician History of Present Illness: Pt seen and examined at bedside. He is awake and appears comfortable. - Current Medication List Current Medications: Active Medications Albuterol Sulfate (Ventolin 0.083% Nebulizer Soln -) 1 amp NEB Q4H PRN PRN Reason: SHORTNESS OF BREATH Last Admin: 02/10/19 19:20 Dose: 1 amp Apixaban (Eliquis -) 5 mg PO BID [facility] Last Admin: 02/13/19 11:32 Dose: 5 mg Docusate Sodium (Colace -) 100 mg PO Q12H PRN PRN Reason: CONSTIPATION Last Admin: 02/13/19 11:32 Dose: 100 mg Folic Acid (Folic Acid -) 1 mg PO DAILY [facility] Last Admin: 02/13/19 11:33 Dose: 1 mg Guaifenesin (Mucinex -) 600 mg PO BID [facility] Last Admin: 02/13/19 11:32 Dose: 600 mg Insulin Aspart (Novolog Vial Sliding Scale -) 1 vial SQ ACHS [facility]; Protocol Last Admin: 02/13/19 12:43 Dose: 2 unit Insulin Detemir (Levemir Vial) 20 units SQ AM [facility] Last Admin: 02/13/19 06:48 Dose: 20 unit Lidocaine (Lidoderm Patch -) 1 patch TP DAILY [facility] Last Admin: 02/13/19 11:33 Dose: 1 patch Metoprolol Succinate (Toprol Xl -) 100 mg PO BID [facility] Last Admin: 02/13/19 11:33 Dose: 100 mg Miscellaneous (Lidoderm Patch Removal) 1 each MC DAILY@2200 [facility] Last Admin: 02/12/19 21:12 Dose: 1 each Non-Formulary Medication (Linaclotide [Linzess]) 145 mcg PO DAILY [facility] [id number]-[id number] Ethyl Esters (Lovaza -) 2 gm PO BID [facility] Last Admin: 02/13/19 11:30 Dose: 2 gm Pantoprazole Sodium (Protonix -) 40 mg PO DAILY [facility] Last Admin: 02/13/19 11:30 Dose: 40 mg Polyethylene Glycol (Miralax (For Daily Use) -) 17 gm PO DAILY [facility] Last Admin: 02/13/19 11:32 Dose: 17 gm Ranolazine (Ranexa -) 1,000 mg PO BID [facility] Last Admin: 02/13/19 11:31 Dose: 1,000 mg Umeclidinium/Vilanterol (Anoro Ellipta 62.5-25 Mcg Inh) 1 puff IH DAILY [facility] Last Admin: 02/13/19 11:35 Dose: 1 puff - Objective Vital Signs: Vital Signs Temperature 97.8 F 02/13/19 08:45 Pulse Rate 66 02/13/19 08:45 Respiratory Rate 18 02/13/19 08:45 Blood Pressure 116/76 02/13/19 08:45 O2 Sat by Pulse Oximetry (%) 95 02/13/19 07:53 Constitutional: Yes: Calm Eyes: Yes: Conjunctiva Clear HENT: Yes: Atraumatic Neck: Yes: Supple Cardiovascular: Yes: S1, S2 Respiratory: Yes: On Nasal O2 Gastrointestinal: Yes: Normal Bowel Sounds, Soft Genitourinary: Yes: WNL Musculoskeletal: Yes: WNL Edema: Yes Edema: LLE: 1+, RLE: 1+ Neurological: Yes: Oriented Labs: CBC, BMP 02/13/19 05:30 02/13/19 05:30 INR, PTT INR 1.40 (0.83-1.09) H 02/10/19 05:30 Assessment/Plan Current Medications Generic Name Dose Route Start Last Admin Trade Name Freq PRN Reason Stop Dose Admin Albuterol Sulfate 1 amp 02/09/19 01:11 02/10/19 19:20 Ventolin 0.083% Nebulizer Soln - NEB 1 amp Q4H PRN Administration SHORTNESS OF BREATH Apixaban 5 mg 02/10/19 22:00 02/13/19 11:32 Eliquis - PO 5 mg BID [facility] Administration Docusate Sodium 100 mg 02/08/19 21:11 02/13/19 11:32 Colace - PO 100 mg Q12H PRN Administration CONSTIPATION Folic Acid 1 mg 02/02/19 10:00 02/13/19 11:33 Folic Acid - PO 1 mg DAILY [facility] Administration Guaifenesin 600 mg 02/10/19 10:00 02/13/19 11:32 Mucinex - PO 600 mg BID [facility] Administration Insulin Aspart 1 vial 02/02/19 07:00 02/13/19 12:43 Novolog Vial Sliding Scale - SQ 2 unit ACHS [facility] Administration Protocol Insulin Detemir 20 units 02/02/19 08:15 02/13/19 06:48 Levemir Vial SQ 20 unit AM [facility] Administration Lidocaine 1 patch 02/03/19 11:45 02/13/19 11:33 Lidoderm Patch - TP 1 patch DAILY [facility] Administration Metoprolol Succinate 100 mg 02/07/19 01:42 02/13/19 11:33 Toprol Xl - PO 100 mg BID [facility] Administration Miscellaneous 1 each 02/03/19 22:00 02/12/19 21:12 Lidoderm Patch Removal MC 1 each DAILY@2200 [facility] Administration Non-Formulary Medication 145 mcg 02/02/19 10:00 Linaclotide [Linzess] PO DAILY [facility] [id number] Ethyl Esters 2 gm 02/02/19 22:00 02/13/19 11:30 Lovaza - PO 2 gm BID [facility] Administration Pantoprazole Sodium 40 mg 02/11/19 10:00 02/13/19 11:30 Protonix - PO 40 mg DAILY [facility] Administration Polyethylene Glycol 17 gm 02/02/19 10:00 02/13/19 11:32 Miralax (For Daily Use) - PO 17 gm DAILY [facility] Administration Ranolazine 1,000 mg 02/02/19 10:00 02/13/19 11:31 Ranexa - PO 1,000 mg BID [facility] Administration Umeclidinium/Vilanterol 1 puff 02/02/19 10:00 02/13/19 11:35 Anoro Ellipta 62.5-25 Mcg Inh IH 1 puff DAILY [facility] Administration Impression 1. CKD 2. HTN 3. DM 4. resp failure requiring bipap 5. anemia 6. CHF 7. JANETH Plan - resume lasix at 20 mg daily - monitor volume status - pt was on lasix 20 mg twice a day at home - cxr reviewed - potassium improved - arb on hold
--- NOTE | 2019-02-13 13:01 | PN ---
Physical Exam: SUBJECTIVE: Patient seen this morning, increased crackles and slight increase in extremity swelling, Denies change in breathing. OBJECTIVE: Vital Signs Temperature 97.8 F 02/13/19 08:45 Pulse Rate 66 02/13/19 08:45 Respiratory Rate 18 02/13/19 08:45 Blood Pressure 116/76 02/13/19 08:45 O2 Sat by Pulse Oximetry (%) 95 02/13/19 07:53 GENERAL: The patient is awake, alert, and fully oriented, in no acute distress. LUNGS: diminished breath sounds and crackles at bases, no accessory muscle use HEART: Regular rate and rhythm, S1, S2 without murmur, rub or gallop. ABDOMEN: Soft, nontender, nondistended, normoactive bowel sounds, EXTREMITIES: 2+ pulses, warm, well-perfused, no edema. PSYCH: Normal mood, normal affect. SKIN: Warm, dry, normal turgor, no rashes or lesions noted CBCD WBC 18.6 K/mm3 (4.0-10.0) H 02/13/19 05:30 RBC 2.74 M/mm3 (4.00-5.60) L 02/13/19 05:30 Hgb 8.5 GM/dL (11.7-16.9) L 02/13/19 05:30 Hct 26.7 % (35.4-49) L 02/13/19 05:30 MCV 97.2 fl (80-96) H 02/13/19 05:30 MCHC 32.0 g/dl (32.0-35.9) 02/13/19 05:30 RDW 30.5 % (11.9-15.9) H 02/13/19 05:30 Plt Count 201 K/MM3 (134-434) 02/13/19 05:30 MPV 9.1 fl (7.5-11.1) D 02/13/19 05:30 CMP Sodium 134 mmol/L (136-145) L 02/13/19 05:30 Potassium 4.7 mmol/L (3.5-5.1) 02/13/19 05:30 Chloride 102 mmol/L (98-107) 02/13/19 05:30 Carbon Dioxide 29 mmol/L (21-32) 02/13/19 05:30 Anion Gap 4 MMOL/L (8-16) L 02/13/19 05:30 BUN 47 mg/dL (7-18) H 02/13/19 05:30 Creatinine 1.6 mg/dL (0.55-1.3) H 02/13/19 05:30 Creat Clearance w eGFR 42.82 (>60) 02/13/19 05:30 Glucose 130 mg/dL (65-99) H 02/07/19 05:30 Calcium 8.4 mg/dL (8.5-10.1) L 02/13/19 05:30 Total Bilirubin 1.0 mg/dL (0.2-1) 02/13/19 05:30 AST 50 U/L (15-37) H 02/13/19 05:30 ALT 160 U/L (13-61) H 02/13/19 05:30 Alkaline Phosphatase 50 U/L (45-117) 02/13/19 05:30 Total Protein 7.6 g/dl (6.4-8.2) 02/13/19 05:30 Albumin 3.2 g/dl (3.4-5.0) L 02/13/19 05:30 Active Medications Albuterol Sulfate (Ventolin 0.083% Nebulizer Soln -) 1 amp NEB Q4H PRN PRN Reason: SHORTNESS OF BREATH Last Admin: 02/10/19 19:20 Dose: 1 amp Apixaban (Eliquis -) 5 mg PO BID [facility] Last Admin: 02/13/19 11:32 Dose: 5 mg Docusate Sodium (Colace -) 100 mg PO Q12H PRN PRN Reason: CONSTIPATION Last Admin: 02/13/19 11:32 Dose: 100 mg Folic Acid (Folic Acid -) 1 mg PO DAILY [facility] Last Admin: 02/13/19 11:33 Dose: 1 mg Guaifenesin (Mucinex -) 600 mg PO BID [facility] Last Admin: 02/13/19 11:32 Dose: 600 mg Insulin Aspart (Novolog Vial Sliding Scale -) 1 vial SQ ACHS [facility]; Protocol Last Admin: 02/13/19 12:43 Dose: 2 unit Insulin Detemir (Levemir Vial) 20 units SQ AM [facility] Last Admin: 02/13/19 06:48 Dose: 20 unit Lidocaine (Lidoderm Patch -) 1 patch TP DAILY [facility] Last Admin: 02/13/19 11:33 Dose: 1 patch Metoprolol Succinate (Toprol Xl -) 100 mg PO BID [facility] Last Admin: 02/13/19 11:33 Dose: 100 mg Miscellaneous (Lidoderm Patch Removal) 1 each MC DAILY@2200 [facility] Last Admin: 02/12/19 21:12 Dose: 1 each Non-Formulary Medication (Linaclotide [Linzess]) 145 mcg PO DAILY [facility] Hrkza-5-Nbym Ethyl Esters (Lovaza -) 2 gm PO BID [facility] Last Admin: 02/13/19 11:30 Dose: 2 gm Pantoprazole Sodium (Protonix -) 40 mg PO DAILY [facility] Last Admin: 02/13/19 11:30 Dose: 40 mg Polyethylene Glycol (Miralax (For Daily Use) -) 17 gm PO DAILY [facility] Last Admin: 02/13/19 11:32 Dose: 17 gm Ranolazine (Ranexa -) 1,000 mg PO BID [facility] Last Admin: 02/13/19 11:31 Dose: 1,000 mg Umeclidinium/Vilanterol (Anoro Ellipta 62.5-25 Mcg Inh) 1 puff IH DAILY [facility] Last Admin: 02/13/19 11:35 Dose: 1 puff ASSESSMENT/PLAN: 73 yo M h/o HTN, DM, hypercholesterolemia, COPD, chronic hypoxic respiratory failure on home O2, CAD s/p CABG, JARET, CKD,who is here for septic shock which has resolved. 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 Cardio - hx HF pEF - continue eliquis, continue toprolol BID - hold amiodarone for elevated LFT's ( trending down, reconsider restarting) - ranolazine 1000 mg BID for angina Pulm - patient tolerating nasal cannula - keep O2 above 90 - CPAP at night - inhaled bronchodilators, mucinex dialy to help with phlem GI - continue folate and thiamine for alcohol usage - AST and ALT trending down - US: borderline hepatomegaly with coarse and dense echo texture suggestive of mild fatty infiltrate - CT: free intraperitoneal fluid, splenomegaly - continue bowel regime ID - septic shock resolved - off Zosyn - white count likely reactive, as discussed by brandi, slowly trending down - Ucx, blood cx negative, no growth and afebrile Renal - JANETH on CKD, getting better - followed by Dr. Kim - Avoid nephrotoxic agent - lasix 40 mg today - f/u daily CXR to monitor fluid Endo - hx DM - hold metformin - continue SS - 8 units in 24 hours FEN - monitor lytes - diabetic diet/ low potassium Prophy - on home eliquis Dispo: patient has been stable, can be monitored on med/surg Visit type - Emergency Visit Emergency Visit: No - New Patient This patient is new to me today: No - Critical Care Critical Care patient: Yes Total Critical Care Time (in minutes): 35 Critical Care Statement: The care of this patient involved high complexity decision making to prevent further life threatening deterioration of the patient 's condition and/or to evaluate & treat vital organ system(s) failure or risk of failure.
--- NOTE | 2019-02-13 13:19 | ECHO ---
Name: SADA, PRANAV Exam:Adult Echocardiogram Study Date: 02/13/2019 08:14 AM Age: 73 yrs Reason For Study: LV Function Height: 69 in Weight: 230 lb BSA: 2.2 m2 Doppler Measurements & Calculations MV E max isa: 144.0 cm/sec MR max isa: 466.5 cm/sec MV A max isa: 42.2 cm/sec MR max P.1 mmHg MV E/A: 3.4 MV dec time: 0.19 sec TR max isa: 232.1 cm/sec PI Vmax: 233.5 cm/sec TR max P.9 mmHg Procedure The study was technically difficult with many images being suboptimal in quality. Left Ventricle The left ventricular size, thickness and function are normal. The left ventricular ejection fraction is normal. Regional wall motion abnormalities cannot be excluded due to limited visualization. Right Ventricle The right ventricle is normal in size and function. There is a pacemaker lead in the right ventricle. Atria Normal left and right atrial size and function. Mitral Valve The mitral valve is not well visualized. There is no mitral valve stenosis. There is moderate mitral regurgitation. Tricuspid Valve There is mild tricuspid valve thickening. There is no tricuspid stenosis. There is moderate tricuspid regurgitation. Right ventricular systolic pressure is normal. Aortic Valve The aortic valve is not well visualized. No hemodynamically significant valvular aortic stenosis. No aortic regurgitation is present. Pulmonic Valve The pulmonic valve is not well visualized. Great Vessels The aortic root is not well visualized. Pericardium/Pleura There is no pericardial effusion. Interpretation Summary The study was technically difficult with many images being suboptimal in quality. The left ventricular size, thickness and function are normal The left ventricular ejection fraction is normal. There is a pacemaker lead in the right ventricle. There is moderate tricuspid regurgitation. Right ventricular systolic pressure is normal. There is moderate mitral regurgitation. The aortic root is not well visualized. MD Tunde Maddox 02/13/2019 01:19 PM
[2019-02-13] MEDS: FUROSEMIDE 20 MG TABLET (FP) PO SCH (13:44)
[2019-02-13] MEDS ORDERED: RANOLAZINE E.R. 500 MG TABLET (FP) ONE (21:34)
[2019-02-13] MEDS: LIDOCAINE PATCH REMOVAL MC SCH (21:44)
[2019-02-13] MEDS ORDERED: INSULIN (NOVOLOG) ASPART 100 UNITS/ML 10ML VIAL ONE (22:09)
[2019-02-14] MEDS: INSULIN SLIDING SCALE (NOVOLOG) 1 VIAL SQ SCH ×4 (06:02→22:27)
[2019-02-14 06:43] LABS: HEMATOCRIT 26.5 % (35.4-49); HEMOGLOBIN 8.3 GM/dL (11.7-16.9); MCH 30.5 pg (25.7-33.7); MCHC 31.5 g/dl (32.0-35.9); MEAN CELL VOLUME 96.8 fl (80-96); MEAN PLT VOLUME 9.3 fl (7.5-11.1); PLATELET COUNT 189 K/MM3 (134-434); RBC 2.74 M/mm3 (4.00-5.60); RDW 30.3 % (11.9-15.9); WHITE BLOOD COUNT 14.4 K/mm3 (4.0-10.0)
[2019-02-14] MEDS: INSULIN (LEVEMIR) 100 UNITS/ML UNITS SQ SCH (06:59)
[2019-02-14 07:07] LABS: ANION GAP 3 MMOL/L (8-16); BLOOD UREA NITROGEN 45 mg/dL (7-18); CALCIUM 8.2 mg/dL (8.5-10.1); CHLORIDE 101 mmol/L (98-107); CO2 30 mmol/L (21-32); CREATININE 1.7 mg/dL (0.55-1.3); GLUCOSE,RANDOM 124 mg/dL (74-106); MAGNESIUM 2.2 mg/dL (1.8-2.4); PHOSPHOROUS 3.4 mg/dL (2.5-4.9); POTASSIUM 4.7 mmol/L (3.5-5.1); SODIUM 134 mmol/L (136-145)
[2019-02-14] MEDS ORDERED: DOCUSATE SODIUM 100 MG CAPSULE (FP) PO PRN (08:07)
--- NOTE | 2019-02-14 10:22 | PN ---
Progress Note, Physician Chief Complaint: COPD Rib Fracture A flutter History of Present Illness: Previous notes and events reviewed awake and alert NAD denies chest pain sts SOB is improving but still experience it with exertion OOB to chair on NC - Current Medication List Current Medications: Active Medications Apixaban (Eliquis -) 5 mg PO BID [facility] Last Admin: 02/13/19 21:43 Dose: 5 mg Docusate Sodium (Colace -) 100 mg PO Q12H PRN PRN Reason: CONSTIPATION Folic Acid (Folic Acid -) 1 mg PO DAILY [facility] Furosemide (Lasix -) 20 mg PO DAILY [facility] Last Admin: 02/13/19 13:44 Dose: 20 mg Guaifenesin (Mucinex -) 600 mg PO BID [facility] Insulin Aspart (Novolog Vial Sliding Scale -) 1 vial SQ ACHS [facility]; Protocol Insulin Detemir (Levemir Vial) 20 units SQ AM [facility] Lidocaine (Lidoderm Patch -) 1 patch TP DAILY [facility] Metoprolol Succinate (Toprol Xl -) 100 mg PO BID [facility] Miscellaneous (Lidoderm Patch Removal) 1 each MC DAILY@2200 [facility] Miscellaneous (Lidoderm Patch Removal) 1 each MC DAILY@2200 [facility] Zjusa-3-Jpat Ethyl Esters (Lovaza -) 2 gm PO BID [facility] Pantoprazole Sodium (Protonix -) 40 mg PO DAILY [facility] Last Admin: 02/13/19 11:30 Dose: 40 mg Polyethylene Glycol (Miralax (For Daily Use) -) 17 gm PO DAILY [facility] Ranolazine (Ranexa -) 1,000 mg PO BID [facility] Umeclidinium/Vilanterol (Anoro Ellipta 62.5-25 Mcg Inh) 1 puff IH DAILY [facility] - Objective Vital Signs: Vital Signs Temperature 97.5 F L 02/14/19 05:00 Pulse Rate 67 02/14/19 05:00 Respiratory Rate 20 02/14/19 05:00 Blood Pressure 131/62 02/14/19 05:00 O2 Sat by Pulse Oximetry (%) 99 02/14/19 07:34 Constitutional: Yes: No Distress, Calm Eyes: Yes: Conjunctiva Clear HENT: Yes: Atraumatic Cardiovascular: Yes: Regular Rate and Rhythm Respiratory: Yes: Regular, Cough, Diminished, On Nasal O2 Gastrointestinal: Yes: Normal Bowel Sounds, Soft, Abdomen, Obese Musculoskeletal: Yes: Muscle Weakness Extremities: Yes: WNL Edema: Yes Edema: LLE: 1+, RLE: 1+ Neurological: Yes: Alert, Oriented Psychiatric: Yes: Alert, Oriented Labs: CBC, BMP 02/14/19 06:00 02/14/19 06:00 INR, PTT INR 1.40 (0.83-1.09) H 02/10/19 05:30 Problem List - Problems (1) Fever Assessment/Plan: -ID on board -WBC 14.4 -BC and UC neg -sputum culture neg -afebrile Code(s): R50.9 - FEVER, UNSPECIFIED (2) Rib fractures Assessment/Plan: -pain management Code(s): S22.39XA - FRACTURE OF ONE RIB, UNSP SIDE, INIT FOR CLOS FX (3) Atrial flutter Assessment/Plan: -cardio on board -continue metoprolol -ELiquis Code(s): I48.92 - UNSPECIFIED ATRIAL FLUTTER Qualifiers: Atrial flutter type: unspecified Qualified Code(s): I48.92 - Unspecified atrial flutter (4) CKD (chronic kidney disease) Assessment/Plan: -BUN/Cr 45/1.7 -renal on board -monitor renal function Code(s): N18.9 - CHRONIC KIDNEY DISEASE, UNSPECIFIED (5) COPD (chronic obstructive pulmonary disease) Assessment/Plan: -pulm on board -Bipap -O2 via NC -keep SpO2 >90% -bronchodilators -Ellipta Code(s): J44.9 - CHRONIC OBSTRUCTIVE PULMONARY DISEASE, UNSPECIFIED (6) Diabetes Assessment/Plan: -BGM ACHS -Levemir + ISS -diabetic diet Code(s): E11.9 - TYPE 2 DIABETES MELLITUS WITHOUT COMPLICATIONS Qualifiers: Diabetes mellitus type: type 2 (7) Abnormal liver function test Assessment/Plan: -LFTs noted to be trending down-AST 50, ALT 160 -amiodarone held due to elev LFT Code(s): R94.5 - ABNORMAL RESULTS OF LIVER FUNCTION STUDIES Assessment/Plan see problem list dvt ppx SNF on discharge for PT
[2019-02-14] MEDS ORDERED: RANOLAZINE E.R. 500 MG TABLET (FP) ONE (10:38)
[2019-02-14] MEDS ORDERED: PT OWN MED DRAWER 7, Y5N ONE (10:39)
[2019-02-14] MEDS: FOLIC ACID 1 MG TABLET (FP) PO SCH (10:47)
[2019-02-14] MEDS: guaiFENesin 600 MG TABLET.ER (FP) PO SCH ×2 (10:47→22:24)
[2019-02-14] MEDS: APIXABAN 5 MG TABLET PO SCH ×2 (10:47→22:23)
[2019-02-14] MEDS: OMEGA-3 ACID ETHYL ESTERS (FATTY-ACIDS) 1 GM CAPSULE (FP) PO SCH ×2 (10:48→22:24)
[2019-02-14] MEDS: PANTOPRAZOLE 40 MG TABLET (FP) PO SCH (10:49)
[2019-02-14] MEDS: FUROSEMIDE 20 MG TABLET (FP) PO SCH (10:49)
[2019-02-14] MEDS: LIDOCAINE 5% TOPICAL PATCH TP SCH (10:49)
[2019-02-14] MEDS: LIDOCAINE PATCH REMOVAL MC SCH ×2 (10:49→22:27)
[2019-02-14] MEDS: RANOLAZINE E.R. 1,000 MG TABLET (FP) PO SCH ×2 (10:50→22:24)
[2019-02-14] MEDS: POLYETHYLENE GLYCOL 3350 119 GM BTL PO SCH (10:51)
[2019-02-14] MEDS: UMECLIDINIUM/VILANTEROL (ANORO) 62.5/25 MCG INHALER IH SCH ×2 (10:58→14:04)
--- NOTE | 2019-02-14 14:06 | PN ---
Progress Note, Physician History of Present Illness: Pt seen and examined at bedside. He complains of lower ext edema. - Current Medication List Current Medications: Active Medications Apixaban (Eliquis -) 5 mg PO BID [facility] Last Admin: 02/14/19 10:47 Dose: 5 mg Docusate Sodium (Colace -) 100 mg PO Q12H PRN PRN Reason: CONSTIPATION Folic Acid (Folic Acid -) 1 mg PO DAILY [facility] Last Admin: 02/14/19 10:47 Dose: 1 mg Furosemide (Lasix -) 20 mg PO DAILY [facility] Last Admin: 02/14/19 10:49 Dose: 20 mg Furosemide (Lasix Injection -) 40 mg IVPUSH ONCE ONE Stop: 02/14/19 14:04 Guaifenesin (Mucinex -) 600 mg PO BID [facility] Last Admin: 02/14/19 10:47 Dose: 600 mg Insulin Aspart (Novolog Vial Sliding Scale -) 1 vial SQ ACHS [facility]; Protocol Last Admin: 02/14/19 12:42 Dose: Not Given Insulin Detemir (Levemir Vial) 20 units SQ AM [facility] Lidocaine (Lidoderm Patch -) 1 patch TP DAILY [facility] Last Admin: 02/14/19 10:49 Dose: 1 patch Metoprolol Succinate (Toprol Xl -) 100 mg PO BID [facility] Last Admin: 02/14/19 10:50 Dose: 100 mg Miscellaneous (Lidoderm Patch Removal) 1 each MC DAILY@2200 [facility] Miscellaneous (Lidoderm Patch Removal) 1 each MC DAILY@2200 [facility] Last Admin: 02/14/19 10:49 Dose: 1 each Hjpbt-7-Tsww Ethyl Esters (Lovaza -) 2 gm PO BID [facility] Last Admin: 02/14/19 10:48 Dose: 2 gm Pantoprazole Sodium (Protonix -) 40 mg PO DAILY [facility] Last Admin: 02/14/19 10:49 Dose: 40 mg Polyethylene Glycol (Miralax (For Daily Use) -) 17 gm PO DAILY [facility] Last Admin: 02/14/19 10:51 Dose: 17 gm Ranolazine (Ranexa -) 1,000 mg PO BID [facility] Last Admin: 02/14/19 10:50 Dose: 1,000 mg Umeclidinium/Vilanterol (Anoro Ellipta 62.5-25 Mcg Inh) 1 puff IH DAILY [facility] Last Admin: 02/14/19 14:04 Dose: 1 puff - Objective Vital Signs: Vital Signs Temperature 98 F 02/14/19 09:00 Pulse Rate 87 02/14/19 09:00 Respiratory Rate 18 02/14/19 09:00 Blood Pressure 121/58 L 02/14/19 09:00 O2 Sat by Pulse Oximetry (%) 100 02/14/19 09:00 Constitutional: Yes: Calm Eyes: Yes: Conjunctiva Clear HENT: Yes: Atraumatic Neck: Yes: Supple Cardiovascular: Yes: S1, S2 Respiratory: Yes: CTA Bilaterally, On Nasal O2 Gastrointestinal: Yes: Soft Genitourinary: Yes: WNL Musculoskeletal: Yes: WNL Edema: Yes Edema: LLE: 2+, RLE: 2+ Neurological: Yes: Oriented Psychiatric: Yes: Oriented Labs: CBC, BMP 02/14/19 06:00 02/14/19 06:00 INR, PTT INR 1.40 (0.83-1.09) H 02/10/19 05:30 Assessment/Plan Current Medications Generic Name Dose Route Start Last Admin Trade Name Freq PRN Reason Stop Dose Admin Apixaban 5 mg 02/10/19 22:00 02/14/19 10:47 Eliquis - PO 5 mg BID [facility] Administration Docusate Sodium 100 mg 02/14/19 08:07 Colace - PO Q12H PRN CONSTIPATION Folic Acid 1 mg 02/14/19 10:00 02/14/19 10:47 Folic Acid - PO 1 mg DAILY [facility] Administration Furosemide 20 mg 02/13/19 13:15 02/14/19 10:49 Lasix - PO 20 mg DAILY [facility] Administration Furosemide 40 mg 02/14/19 14:03 Lasix Injection - IVPUSH 02/14/19 14:04 ONCE ONE Guaifenesin 600 mg 02/14/19 10:00 02/14/19 10:47 Mucinex - PO 600 mg BID [facility] Administration Insulin Aspart 1 vial 02/14/19 11:00 02/14/19 12:42 Novolog Vial Sliding Scale - SQ Not Given ACHS [facility] Protocol Insulin Detemir 20 units 02/15/19 07:00 Levemir Vial SQ AM [facility] Lidocaine 1 patch 02/14/19 10:00 02/14/19 10:49 Lidoderm Patch - TP 1 patch DAILY [facility] Administration Metoprolol Succinate 100 mg 02/14/19 10:00 02/14/19 10:50 Toprol Xl - PO 100 mg BID [facility] Administration Miscellaneous 1 each 02/14/19 22:00 Lidoderm Patch Removal MC DAILY@2200 [facility] Miscellaneous 1 each 02/14/19 08:07 02/14/19 10:49 Lidoderm Patch Removal MC 1 each DAILY@2200 [facility] Administration Rzbvb-9-Udnw Ethyl Esters 2 gm 02/14/19 10:00 02/14/19 10:48 Lovaza - PO 2 gm BID [facility] Administration Pantoprazole Sodium 40 mg 02/11/19 10:00 02/14/19 10:49 Protonix - PO 40 mg DAILY [facility] Administration Polyethylene Glycol 17 gm 02/14/19 10:00 02/14/19 10:51 Miralax (For Daily Use) - PO 17 gm DAILY [facility] Administration Ranolazine 1,000 mg 02/14/19 10:00 02/14/19 10:50 Ranexa - PO 1,000 mg BID [facility] Administration Umeclidinium/Vilanterol 1 puff 02/14/19 10:00 02/14/19 14:04 Anoro Ellipta 62.5-25 Mcg Inh IH 1 puff DAILY [facility] Administration Impression 1. CKD 2. HTN 3. DM 4. resp failure requiring bipap 5. anemia 6. CHF 7. JANETH Plan - increase lasix to bid - monitor renal function - potassium improved - arb on hold
--- NOTE | 2019-02-14 14:10 | PN ---
Progress Note, Physician Chief Complaint: A&Ox3; OOB in chair, prefers sitting up (+ orthopnea; PND). History of Present Illness: Mr. Vergara is a 73 year old man with a PMH of CABG 2004 (? hx PA), AF, CHF ( likely systolic: pt has ICD), anemia, COPD on O2, sleep apnea, diabetes, HTN, hypercholesterolemia, thyroid disease, who was recently discharged after hospitalization for shortness of breath;returns after ecchymosis noted on right lateral chest. Pt denied fall and attributed bruise to intense pruritus. History of falls, the last 2 months ago; walks with cane and walker. - Current Medication List Current Medications: Active Medications Apixaban (Eliquis -) 5 mg PO BID [facility] Last Admin: 02/14/19 10:47 Dose: 5 mg Docusate Sodium (Colace -) 100 mg PO Q12H PRN PRN Reason: CONSTIPATION Folic Acid (Folic Acid -) 1 mg PO DAILY [facility] Last Admin: 02/14/19 10:47 Dose: 1 mg Furosemide (Lasix -) 20 mg PO DAILY [facility] Last Admin: 02/14/19 10:49 Dose: 20 mg Furosemide (Lasix Injection -) 40 mg IVPUSH ONCE ONE Stop: 02/14/19 14:04 Guaifenesin (Mucinex -) 600 mg PO BID [facility] Last Admin: 02/14/19 10:47 Dose: 600 mg Insulin Aspart (Novolog Vial Sliding Scale -) 1 vial SQ ACHS [facility]; Protocol Last Admin: 02/14/19 12:42 Dose: Not Given Insulin Detemir (Levemir Vial) 20 units SQ AM [facility] Lidocaine (Lidoderm Patch -) 1 patch TP DAILY [facility] Last Admin: 02/14/19 10:49 Dose: 1 patch Metoprolol Succinate (Toprol Xl -) 100 mg PO BID [facility] Last Admin: 02/14/19 10:50 Dose: 100 mg Miscellaneous (Lidoderm Patch Removal) 1 each MC DAILY@2200 [facility] Miscellaneous (Lidoderm Patch Removal) 1 each MC DAILY@2200 [facility] Last Admin: 02/14/19 10:49 Dose: 1 each Pkdft-7-Hbjt Ethyl Esters (Lovaza -) 2 gm PO BID [facility] Last Admin: 02/14/19 10:48 Dose: 2 gm Pantoprazole Sodium (Protonix -) 40 mg PO DAILY [facility] Last Admin: 02/14/19 10:49 Dose: 40 mg Polyethylene Glycol (Miralax (For Daily Use) -) 17 gm PO DAILY [facility] Last Admin: 02/14/19 10:51 Dose: 17 gm Ranolazine (Ranexa -) 1,000 mg PO BID [facility] Last Admin: 02/14/19 10:50 Dose: 1,000 mg Umeclidinium/Vilanterol (Anoro Ellipta 62.5-25 Mcg Inh) 1 puff IH DAILY [facility] Last Admin: 02/14/19 14:04 Dose: 1 puff - Objective Vital Signs: Vital Signs Temperature 98 F 02/14/19 09:00 Pulse Rate 87 02/14/19 09:00 Respiratory Rate 18 02/14/19 09:00 Blood Pressure 121/58 L 02/14/19 09:00 O2 Sat by Pulse Oximetry (%) 100 02/14/19 09:00 Constitutional: Yes: No Distress, Obese Eyes: Yes: WNL Labs: CBC, BMP 02/14/19 06:00 02/14/19 06:00 INR, PTT INR 1.40 (0.83-1.09) H 02/10/19 05:30 Problem List - Problems (1) Atrial fibrillation Assessment/Plan: On metoprolol ER for HR control. On apixaban 5 mg bid for anticoagulation. [employer] ICD interrogation notes shock delivered in past weeks for rapid HR, though apparently for AF: modify parameters; now on beta matheus bid; keep electrolytes WNL. Code(s): I48.91 - UNSPECIFIED ATRIAL FIBRILLATION (2) Abnormal liver function test Assessment/Plan: improving since admission, resolution of septic shock. Code(s): R94.5 - ABNORMAL RESULTS OF LIVER FUNCTION STUDIES (3) Hx of CABG Code(s): Z95.1 - PRESENCE OF AORTOCORONARY BYPASS GRAFT (4) Anemia Code(s): D64.9 - ANEMIA, UNSPECIFIED (5) HTN (hypertension) Assessment/Plan: On metoprolol ER. Pt has HTN, CAD, and DM, but elevated K+ precludes use of ACEI or ARB. ECHO: now normal LVEF. Code(s): I10 - ESSENTIAL (PRIMARY) HYPERTENSION Qualifiers: Hypertension type: essential hypertension Qualified Code(s): I10 - Essential (primary) hypertension (6) History of heart artery stent Code(s): Z95.5 - PRESENCE OF CORONARY ANGIOPLASTY IMPLANT AND GRAFT (7) Sleep apnea Code(s): G47.30 - SLEEP APNEA, UNSPECIFIED Qualifiers: Sleep apnea type: unspecified type Qualified Code(s): G47.30 - Sleep apnea , unspecified (8) Septic shock Code(s): A41.9 - SEPSIS, UNSPECIFIED ORGANISM; R65.21 - SEVERE SEPSIS WITH SEPTIC SHOCK (9) Diabetes Code(s): E11.9 - TYPE 2 DIABETES MELLITUS WITHOUT COMPLICATIONS Qualifiers: Diabetes mellitus type: type 2 (10) Cardiac defibrillator in place Code(s): Z95.810 - PRESENCE OF AUTOMATIC (IMPLANTABLE) CARDIAC DEFIBRILLATOR (11) Acute on chronic diastolic (congestive) heart failure Assessment/Plan: On metoprolol. +orthopnea/PND. Lungs: +bilateral rhonchi. Will give dose of IV furosemide. F/u BUN/Cr, electrolytes, daily weight, Is and Os. Code(s): I50.33 - ACUTE ON CHRONIC DIASTOLIC (CONGESTIVE) HEART FAILURE
[2019-02-14] MEDS ORDERED: FUROSEMIDE 40 MG/4 ML INJECTABLE VIAL IVPUSH ONE (14:30)
--- NOTE | 2019-02-14 15:03 | PN ---
Progress Note, Physician History of Present Illness: PULMONARY ALERT,OOB-CHAIR,-SOB - Current Medication List Current Medications: Active Medications Apixaban (Eliquis -) 5 mg PO BID [facility] Last Admin: 02/14/19 10:47 Dose: 5 mg Docusate Sodium (Colace -) 100 mg PO Q12H PRN PRN Reason: CONSTIPATION Folic Acid (Folic Acid -) 1 mg PO DAILY [facility] Last Admin: 02/14/19 10:47 Dose: 1 mg Furosemide (Lasix -) 20 mg PO BID@0600,1400 [facility] Guaifenesin (Mucinex -) 600 mg PO BID [facility] Last Admin: 02/14/19 10:47 Dose: 600 mg Insulin Aspart (Novolog Vial Sliding Scale -) 1 vial SQ ACHS [facility]; Protocol Last Admin: 02/14/19 12:42 Dose: Not Given Insulin Detemir (Levemir Vial) 20 units SQ AM [facility] Lidocaine (Lidoderm Patch -) 1 patch TP DAILY [facility] Last Admin: 02/14/19 10:49 Dose: 1 patch Metoprolol Succinate (Toprol Xl -) 100 mg PO BID [facility] Last Admin: 02/14/19 10:50 Dose: 100 mg Miscellaneous (Lidoderm Patch Removal) 1 each MC DAILY@2200 [facility] Miscellaneous (Lidoderm Patch Removal) 1 each MC DAILY@2200 [facility] Last Admin: 02/14/19 10:49 Dose: 1 each Fxgld-1-Tjrq Ethyl Esters (Lovaza -) 2 gm PO BID [facility] Last Admin: 02/14/19 10:48 Dose: 2 gm Pantoprazole Sodium (Protonix -) 40 mg PO DAILY [facility] Last Admin: 02/14/19 10:49 Dose: 40 mg Polyethylene Glycol (Miralax (For Daily Use) -) 17 gm PO DAILY [facility] Last Admin: 02/14/19 10:51 Dose: 17 gm Ranolazine (Ranexa -) 1,000 mg PO BID [facility] Last Admin: 02/14/19 10:50 Dose: 1,000 mg Umeclidinium/Vilanterol (Anoro Ellipta 62.5-25 Mcg Inh) 1 puff IH DAILY [facility] Last Admin: 02/14/19 14:04 Dose: 1 puff - Objective Vital Signs: Vital Signs Temperature 98 F 02/14/19 09:00 Pulse Rate 87 02/14/19 09:00 Respiratory Rate 18 02/14/19 09:00 Blood Pressure 121/58 L 02/14/19 09:00 O2 Sat by Pulse Oximetry (%) 100 02/14/19 09:00 Constitutional: Yes: Well Nourished, Calm Eyes: Yes: WNL HENT: Yes: WNL Neck: Yes: WNL Cardiovascular: Yes: Regular Rate and Rhythm, S1, S2 Respiratory: Yes: CTA Bilaterally Gastrointestinal: Yes: Normal Bowel Sounds, Soft Extremities: Yes: WNL Edema: Yes Labs: CBC, BMP 02/14/19 06:00 02/14/19 06:00 INR, PTT INR 1.40 (0.83-1.09) H 02/10/19 05:30 - ....Imaging Chest X-ray: Report Reviewed, Image Reviewed Problem List - Problems (1) Acute on chronic diastolic (congestive) heart failure Code(s): I50.33 - ACUTE ON CHRONIC DIASTOLIC (CONGESTIVE) HEART FAILURE (2) Anemia Code(s): D64.9 - ANEMIA, UNSPECIFIED (3) CKD (chronic kidney disease) Code(s): N18.9 - CHRONIC KIDNEY DISEASE, UNSPECIFIED (4) COPD (chronic obstructive pulmonary disease) Code(s): J44.9 - CHRONIC OBSTRUCTIVE PULMONARY DISEASE, UNSPECIFIED (5) Diabetes Code(s): E11.9 - TYPE 2 DIABETES MELLITUS WITHOUT COMPLICATIONS Qualifiers: Diabetes mellitus type: type 2 (6) HTN (hypertension) Code(s): I10 - ESSENTIAL (PRIMARY) HYPERTENSION Qualifiers: Hypertension type: essential hypertension Qualified Code(s): I10 - Essential (primary) hypertension (7) History of heart artery stent Code(s): Z95.5 - PRESENCE OF CORONARY ANGIOPLASTY IMPLANT AND GRAFT (8) Leg edema Code(s): R60.0 - LOCALIZED EDEMA (9) Presence of cardiac pacemaker Code(s): Z95.0 - PRESENCE OF CARDIAC PACEMAKER (10) Sleep apnea Code(s): G47.30 - SLEEP APNEA, UNSPECIFIED Qualifiers: Sleep apnea type: unspecified type Qualified Code(s): G47.30 - Sleep apnea , unspecified Assessment/Plan ASSESSMENT AND PLAN: Acute on Chronic Hypoxic Respiratory Failure improved Pneumonia clinically improved Septic Shock improving COPD Acute on Chronic Systolic/Diastolic Heart Failure Paroxysmal Atrial Fibrillation Obstructive Sleep Apnea CKD HTN DM Hypercholesterolemia - completed antibiotics - O2 to keep Spo2 >90% - inhaled bronchodilators - CPAP at night - rate controlled - continue anticoagulation - lasix as needed - monitor urine output, creatinine - can monitor on floor Problem List - Problems (1) Acute on chronic diastolic (congestive) heart failure Code(s): I50.33 - ACUTE ON CHRONIC DIASTOLIC (CONGESTIVE) HEART FAILURE
[2019-02-15] MEDS ORDERED: INSULIN (LEVEMIR) 100 UNITS/ML UNITS SQ ONE (05:00)
[2019-02-15] MEDS: INSULIN SLIDING SCALE (NOVOLOG) 1 VIAL SQ SCH ×4 (06:21→21:27)
[2019-02-15] MEDS: FUROSEMIDE 20 MG TABLET (FP) PO SCH ×2 (06:25→14:24)
[2019-02-15 07:43] LABS: HEMOGLOBIN 8.6 GM/dL (11.7-16.9); MCH 31.3 pg (25.7-33.7); MEAN CELL VOLUME 97.9 fl (80-96); PLATELET COUNT 174 K/MM3 (134-434); RBC 2.76 M/mm3 (4.00-5.60); RDW 29.8 % (11.9-15.9); WHITE BLOOD COUNT 10.4 K/mm3 (4.0-10.0)
[2019-02-15 08:14] LABS: ALBUMIN 3.1 g/dl (3.4-5.0); ALK PHOS 49 U/L (45-117); ANION GAP 5 MMOL/L (8-16); BILIRUBIN,TOTAL 0.9 mg/dL (0.2-1); BLOOD UREA NITROGEN 40 mg/dL (7-18); CALCIUM 8.4 mg/dL (8.5-10.1); CHLORIDE 101 mmol/L (98-107); CO2 31 mmol/L (21-32); CREATININE 1.6 mg/dL (0.55-1.3); GLUCOSE,RANDOM 104 mg/dL (74-106); POTASSIUM 4.6 mmol/L (3.5-5.1); SGOT/AST 35 U/L (15-37); SGPT/ALT 107 U/L (13-61); SODIUM 136 mmol/L (136-145); TOT PROT 7.2 g/dl (6.4-8.2)
[2019-02-15] MEDS: LIDOCAINE PATCH REMOVAL MC SCH ×3 (08:36→21:27)
[2019-02-15] MEDS: INSULIN (LEVEMIR) 100 UNITS/ML UNITS SQ SCH (08:45)
[2019-02-15] MEDS: PANTOPRAZOLE 40 MG TABLET (FP) PO SCH (10:38)
[2019-02-15] MEDS: LIDOCAINE 5% TOPICAL PATCH TP SCH (10:38)
[2019-02-15] MEDS: OMEGA-3 ACID ETHYL ESTERS (FATTY-ACIDS) 1 GM CAPSULE (FP) PO SCH ×2 (10:39→21:26)
[2019-02-15] MEDS: APIXABAN 5 MG TABLET PO SCH ×2 (10:39→21:27)
[2019-02-15] MEDS: FOLIC ACID 1 MG TABLET (FP) PO SCH (10:39)
[2019-02-15] MEDS: UMECLIDINIUM/VILANTEROL (ANORO) 62.5/25 MCG INHALER IH SCH (10:40)
[2019-02-15] MEDS: POLYETHYLENE GLYCOL 3350 119 GM BTL PO SCH (10:42)
[2019-02-15] MEDS: guaiFENesin 600 MG TABLET.ER (FP) PO SCH ×2 (10:42→21:27)
[2019-02-15] MEDS: RANOLAZINE E.R. 1,000 MG TABLET (FP) PO SCH ×2 (10:43→21:26)
--- NOTE | 2019-02-15 10:47 | PN ---
Progress Note, Physician Chief Complaint: COPD Rib Fracture A flutter History of Present Illness: Previous notes and events reviewed awake and alert NAD denies chest pain sts SOB is improving but still experience it with exertion edema B/L lower extremity complain of productive cough - Current Medication List Current Medications: Active Medications Apixaban (Eliquis -) 5 mg PO BID [facility] Last Admin: 02/14/19 22:23 Dose: 5 mg Docusate Sodium (Colace -) 100 mg PO Q12H PRN PRN Reason: CONSTIPATION Folic Acid (Folic Acid -) 1 mg PO DAILY [facility] Last Admin: 02/14/19 10:47 Dose: 1 mg Furosemide (Lasix -) 20 mg PO BID@0600,1400 [facility] Last Admin: 02/15/19 06:25 Dose: 20 mg Guaifenesin (Mucinex -) 600 mg PO BID [facility] Last Admin: 02/14/19 22:24 Dose: 600 mg Insulin Aspart (Novolog Vial Sliding Scale -) 1 [facility]Q [facility]; Protocol Last Admin: 02/15/19 06:21 Dose: Not Given Insulin Detemir (Levemir Vial) 20 units SQ AM [facility] Last Admin: 02/15/19 08:45 Dose: 20 units Lidocaine (Lidoderm Patch -) 1 patch TP DAILY [facility] Last Admin: 02/14/19 10:49 Dose: 1 patch Metoprolol Succinate (Toprol Xl -) 100 mg PO BID [facility] Last Admin: 02/14/19 22:27 Dose: 100 mg Miscellaneous (Lidoderm Patch Removal) 1 each MC DAILY@2200 [facility] Last Admin: 02/14/19 22:27 Dose: 1 each Miscellaneous (Lidoderm Patch Removal) 1 each MC DAILY@2200 [facility] Last Admin: 02/15/19 08:36 Dose: Not Given Vfbwz-5-Aqwj Ethyl Esters (Lovaza -) 2 gm PO BID [facility] Last Admin: 02/14/19 22:24 Dose: 2 gm Pantoprazole Sodium (Protonix -) 40 mg PO DAILY [facility] Last Admin: 02/14/19 10:49 Dose: 40 mg Polyethylene Glycol (Miralax (For Daily Use) -) 17 gm PO DAILY [facility] Last Admin: 02/14/19 10:51 Dose: 17 gm Ranolazine (Ranexa -) 1,000 mg PO BID [facility] Last Admin: 02/14/19 22:24 Dose: 1,000 mg Umeclidinium/Vilanterol (Anoro Ellipta 62.5-25 Mcg Inh) 1 puff IH DAILY [facility] Last Admin: 02/14/19 14:04 Dose: 1 puff - Objective Vital Signs: Vital Signs Temperature 97.7 F 02/15/19 06:00 Pulse Rate 67 02/15/19 06:00 Respiratory Rate 20 02/15/19 06:00 Blood Pressure 115/67 02/15/19 06:00 O2 Sat by Pulse Oximetry (%) 100 02/14/19 21:00 Constitutional: Yes: No Distress, Calm Eyes: Yes: Conjunctiva Clear HENT: Yes: Atraumatic Cardiovascular: Yes: Regular Rate and Rhythm Respiratory: Yes: Regular, Rhonchi Gastrointestinal: Yes: Normal Bowel Sounds, Soft, Abdomen, Obese Musculoskeletal: Yes: Muscle Weakness Extremities: Yes: WNL Edema: Yes Edema: LLE: 1+, RLE: 1+ Neurological: Yes: Alert, Pre-Existing Deficit Psychiatric: Yes: Alert, Oriented Labs: CBC, BMP 02/15/19 06:50 02/15/19 06:50 INR, PTT INR 1.40 (0.83-1.09) H 02/10/19 05:30 Problem List - Problems (1) Fever Assessment/Plan: -ID on board -WBC 10.4 -BC and UC neg -sputum culture neg -afebrile Code(s): R50.9 - FEVER, UNSPECIFIED (2) Rib fractures Assessment/Plan: -pain management Code(s): S22.39XA - FRACTURE OF ONE RIB, UNSP SIDE, INIT FOR CLOS FX (3) Atrial flutter Assessment/Plan: -cardio on board -continue metoprolol -ELiquis Code(s): I48.92 - UNSPECIFIED ATRIAL FLUTTER Qualifiers: Atrial flutter type: unspecified Qualified Code(s): I48.92 - Unspecified atrial flutter (4) CKD (chronic kidney disease) Assessment/Plan: -BUN/Cr 40/1.6 -renal on board -monitor renal function Code(s): N18.9 - CHRONIC KIDNEY DISEASE, UNSPECIFIED (5) COPD (chronic obstructive pulmonary disease) Assessment/Plan: -pulm on board -Bipap -O2 via NC -keep SpO2 >90% -bronchodilators -Ellipta Code(s): J44.9 - CHRONIC OBSTRUCTIVE PULMONARY DISEASE, UNSPECIFIED (6) Diabetes Assessment/Plan: -BGM ACHS -Levemir + ISS -diabetic diet Code(s): E11.9 - TYPE 2 DIABETES MELLITUS WITHOUT COMPLICATIONS Qualifiers: Diabetes mellitus type: type 2 (7) Abnormal liver function test Assessment/Plan: -LFTs noted to be trending down-AST 50, ALT 160 -amiodarone held due to elev LFT Code(s): R94.5 - ABNORMAL RESULTS OF LIVER FUNCTION STUDIES (8) Acute on chronic diastolic (congestive) heart failure Assessment/Plan: -cardiology on board -Lasix 20mg PO BID--monitor renal function -1L fluid restriction -daily weights Code(s): I50.33 - ACUTE ON CHRONIC DIASTOLIC (CONGESTIVE) HEART FAILURE Assessment/Plan see problem list dvt ppx SNF for discharge for PT
--- NOTE | 2019-02-15 12:30 | PN ---
Progress Note (short form) - Note Progress Note: NEUROLOGY PROGRESS: Since consult, recently transferred from ICU to 8th floor. Off antibiotics and using CPAP at night for JARET. Currently OOB in chair, eating lunch. Reports ambulates intermittently with cane. Hx of two falls at home attributed to bathroom/shower floor "slippery" and landed both times on R flank. He was hospitalized with previous fall at [facility]. WBC 20.1-> 10.4 NA 132-> 136 BUN/Cr 99/3.9-> 40/1.6 AST 427/ALT 583->50/160 Albumin 0.5-> 3.2 CONSUELO: Obese. Neg SLR. NEURO: Mentation/Speech: Ox [facility]. December 16, 2018. TRUMP. Speech is hoarse. 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 No Ptosis. Coordination: No FTN dystaxia. Motor: Strength normal. Arreflexic in legs. 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 Peripheral neuropathy (c/w diabetes) Suggest: Review prior neuroimaging obtained at [facility] Mobilize OO Bed to chair and aggressive PT for gait with walker. Pending D/C to [facility] Thank you very much, Marshal Donis MD
--- NOTE | 2019-02-15 13:19 | PN ---
Progress Note, Physician History of Present Illness: events of last 24 hrs noted - Current Medication List Current Medications: Active Medications Apixaban (Eliquis -) 5 mg PO BID [facility] Last Admin: 02/15/19 10:39 Dose: 5 mg Docusate Sodium (Colace -) 100 mg PO Q12H PRN PRN Reason: CONSTIPATION Folic Acid (Folic Acid -) 1 mg PO DAILY [facility] Last Admin: 02/15/19 10:39 Dose: 1 mg Furosemide (Lasix -) 20 mg PO BID@0600,1400 [facility] Last Admin: 02/15/19 06:25 Dose: 20 mg Guaifenesin (Mucinex -) 600 mg PO BID [facility] Last Admin: 02/15/19 10:42 Dose: 600 mg Insulin Aspart (Novolog Vial Sliding Scale -) 1 vial SQ [facility]; Protocol Last Admin: 02/15/19 11:38 Dose: Not Given Insulin Detemir (Levemir Vial) 20 units SQ AM [facility] Last Admin: 02/15/19 08:45 Dose: 20 units Lidocaine (Lidoderm Patch -) 1 patch TP DAILY [facility] Last Admin: 02/15/19 10:38 Dose: 1 patch Metoprolol Succinate (Toprol Xl -) 100 mg PO BID [facility] Last Admin: 02/15/19 10:44 Dose: 100 mg Miscellaneous (Lidoderm Patch Removal) 1 each MC DAILY@2200 [facility] Last Admin: 02/14/19 22:27 Dose: 1 each Miscellaneous (Lidoderm Patch Removal) 1 each MC DAILY@2200 [facility] Last Admin: 02/15/19 08:36 Dose: Not Given Zxzbx-5-Ptoe Ethyl Esters (Lovaza -) 2 gm PO BID [facility] Last Admin: 02/15/19 10:39 Dose: 2 gm Pantoprazole Sodium (Protonix -) 40 mg PO DAILY [facility] Last Admin: 02/15/19 10:38 Dose: 40 mg Polyethylene Glycol (Miralax (For Daily Use) -) 17 gm PO DAILY [facility] Last Admin: 02/15/19 10:42 Dose: Not Given Ranolazine (Ranexa -) 1,000 mg PO BID [facility] Last Admin: 02/15/19 10:43 Dose: 1,000 mg Umeclidinium/Vilanterol (Anoro Ellipta 62.5-25 Mcg Inh) 1 puff IH DAILY [facility] Last Admin: 02/15/19 10:40 Dose: 1 puff - Objective Vital Signs: Vital Signs Temperature 97.8 F 02/15/19 10:00 Pulse Rate 65 02/15/19 10:00 Respiratory Rate 18 02/15/19 10:00 Blood Pressure 114/55 L 02/15/19 10:00 O2 Sat by Pulse Oximetry (%) 100 02/14/19 21:00 Eyes: Yes: WNL, Conjunctiva Clear, EOM Intact HENT: Yes: WNL, Atraumatic, Normocephalic Neck: Yes: WNL, Supple, Trachea Midline Cardiovascular: Yes: WNL, Regular Rate and Rhythm Respiratory: Yes: WNL, Regular, CTA Bilaterally Gastrointestinal: Yes: WNL, Normal Bowel Sounds Genitourinary: Yes: WNL Musculoskeletal: Yes: WNL Extremities: Yes: WNL Edema: Yes Integumentary: Yes: WNL Neurological: Yes: WNL, Alert, Oriented ...Motor Strength: WNL Psychiatric: Yes: WNL Labs: CBC, BMP 02/15/19 06:50 02/15/19 06:50 INR, PTT INR 1.40 (0.83-1.09) H 02/10/19 05:30 Assessment/Plan - Problems (1) Atrial fibrillation Assessment/Plan: On metoprolol ER for HR control. On apixaban 5 mg bid for anticoagulation. [employer] ICD interrogation notes shock delivered in past weeks for rapid HR, though apparently for AF: modify parameters; now on beta matheus bid; keep electrolytes WNL. Code(s): I48.91 - UNSPECIFIED ATRIAL FIBRILLATION (2) Abnormal liver function test Assessment/Plan: improving since admission, resolution of septic shock. Code(s): R94.5 - ABNORMAL RESULTS OF LIVER FUNCTION STUDIES (3) Hx of CABG Code(s): Z95.1 - PRESENCE OF AORTOCORONARY BYPASS GRAFT (4) Anemia Code(s): D64.9 - ANEMIA, UNSPECIFIED (5) HTN (hypertension) Assessment/Plan: On metoprolol ER. Pt has HTN, CAD, and DM, but elevated K+ precludes use of ACEI or ARB. ECHO: now normal LVEF. Code(s): I10 - ESSENTIAL (PRIMARY) HYPERTENSION Qualifiers: Hypertension type: essential hypertension Qualified Code(s): I10 - Essential (primary) hypertension (6) History of heart artery stent Code(s): Z95.5 - PRESENCE OF CORONARY ANGIOPLASTY IMPLANT AND GRAFT (7) Sleep apnea Code(s): G47.30 - SLEEP APNEA, UNSPECIFIED Qualifiers: Sleep apnea type: unspecified type Qualified Code(s): G47.30 - Sleep apnea , unspecified (8) Septic shock Code(s): A41.9 - SEPSIS, UNSPECIFIED ORGANISM; R65.21 - SEVERE SEPSIS WITH SEPTIC SHOCK (9) Diabetes Code(s): E11.9 - TYPE 2 DIABETES MELLITUS WITHOUT COMPLICATIONS Qualifiers: Diabetes mellitus type: type 2 (10) Cardiac defibrillator in place Code(s): Z95.810 - PRESENCE OF AUTOMATIC (IMPLANTABLE) CARDIAC DEFIBRILLATOR (11) Acute on chronic diastolic (congestive) heart failure Assessment/Plan: On metoprolol. +orthopnea/PND. Lungs: +bilateral rhonchi. Will give dose of IV furosemide. F/u BUN/Cr, electrolytes, daily weight, Is and Os. Code(s): I50.33 - ACUTE ON CHRONIC DIASTOLIC (CONGESTIVE) HEART FAILURE
--- NOTE | 2019-02-15 14:51 | PN ---
Progress Note, Physician History of Present Illness: pulmonary alert,oob-chair,comfortable,-sob - Current Medication List Current Medications: Active Medications Apixaban (Eliquis -) 5 mg PO BID [facility] Last Admin: 02/15/19 10:39 Dose: 5 mg Docusate Sodium (Colace -) 100 mg PO Q12H PRN PRN Reason: CONSTIPATION Folic Acid (Folic Acid -) 1 mg PO DAILY [facility] Last Admin: 02/15/19 10:39 Dose: 1 mg Furosemide (Lasix -) 20 mg PO BID@0600,1400 [facility] Last Admin: 02/15/19 14:24 Dose: 20 mg Guaifenesin (Mucinex -) 600 mg PO BID [facility] Last Admin: 02/15/19 10:42 Dose: 600 mg Insulin Aspart (Novolog Vial Sliding Scale -) 1 vial SQ [facility]; Protocol Last Admin: 02/15/19 11:38 Dose: Not Given Insulin Detemir (Levemir Vial) 20 units SQ AM [facility] Last Admin: 02/15/19 08:45 Dose: 20 units Lidocaine (Lidoderm Patch -) 1 patch TP DAILY [facility] Last Admin: 02/15/19 10:38 Dose: 1 patch Metoprolol Succinate (Toprol Xl -) 100 mg PO BID [facility] Last Admin: 02/15/19 10:44 Dose: 100 mg Miscellaneous (Lidoderm Patch Removal) 1 each MC DAILY@2200 [facility] Last Admin: 02/14/19 22:27 Dose: 1 each Miscellaneous (Lidoderm Patch Removal) 1 each MC DAILY@2200 [facility] Last Admin: 02/15/19 08:36 Dose: Not Given Qgvrr-9-Hkvx Ethyl Esters (Lovaza -) 2 gm PO BID [facility] Last Admin: 02/15/19 10:39 Dose: 2 gm Pantoprazole Sodium (Protonix -) 40 mg PO DAILY [facility] Last Admin: 02/15/19 10:38 Dose: 40 mg Polyethylene Glycol (Miralax (For Daily Use) -) 17 gm PO DAILY [facility] Last Admin: 02/15/19 10:42 Dose: Not Given Ranolazine (Ranexa -) 1,000 mg PO BID [facility] Last Admin: 02/15/19 10:43 Dose: 1,000 mg Umeclidinium/Vilanterol (Anoro Ellipta 62.5-25 Mcg Inh) 1 puff IH DAILY [facility] Last Admin: 02/15/19 10:40 Dose: 1 puff - Objective Vital Signs: Vital Signs Temperature 97.8 F 02/15/19 10:00 Pulse Rate 65 02/15/19 10:00 Respiratory Rate 18 02/15/19 10:00 Blood Pressure 114/55 L 02/15/19 10:00 O2 Sat by Pulse Oximetry (%) 100 02/14/19 21:00 Constitutional: Yes: Well Nourished, Calm Eyes: Yes: WNL HENT: Yes: WNL Neck: Yes: WNL Cardiovascular: Yes: Regular Rate and Rhythm, S1, S2 Respiratory: Yes: Rales (bibasilar crackles) Gastrointestinal: Yes: Normal Bowel Sounds, Soft Extremities: Yes: WNL Edema: Yes Labs: CBC, BMP 02/15/19 06:50 02/15/19 06:50 INR, PTT INR 1.40 (0.83-1.09) H 02/10/19 05:30 Problem List - Problems (1) Acute on chronic diastolic (congestive) heart failure Code(s): I50.33 - ACUTE ON CHRONIC DIASTOLIC (CONGESTIVE) HEART FAILURE (2) Anemia Code(s): D64.9 - ANEMIA, UNSPECIFIED (3) CKD (chronic kidney disease) Code(s): N18.9 - CHRONIC KIDNEY DISEASE, UNSPECIFIED (4) COPD (chronic obstructive pulmonary disease) Code(s): J44.9 - CHRONIC OBSTRUCTIVE PULMONARY DISEASE, UNSPECIFIED (5) Diabetes Code(s): E11.9 - TYPE 2 DIABETES MELLITUS WITHOUT COMPLICATIONS Qualifiers: Diabetes mellitus type: type 2 (6) HTN (hypertension) Code(s): I10 - ESSENTIAL (PRIMARY) HYPERTENSION Qualifiers: Hypertension type: essential hypertension Qualified Code(s): I10 - Essential (primary) hypertension (7) History of heart artery stent Code(s): Z95.5 - PRESENCE OF CORONARY ANGIOPLASTY IMPLANT AND GRAFT (8) Leg edema Code(s): R60.0 - LOCALIZED EDEMA (9) Presence of cardiac pacemaker Code(s): Z95.0 - PRESENCE OF CARDIAC PACEMAKER (10) Sleep apnea Code(s): G47.30 - SLEEP APNEA, UNSPECIFIED Qualifiers: Sleep apnea type: unspecified type Qualified Code(s): G47.30 - Sleep apnea , unspecified Assessment/Plan ASSESSMENT AND PLAN: Acute on Chronic Hypoxic Respiratory Failure improved Pneumonia clinically improved Septic Shock improving COPD Acute on Chronic Systolic/Diastolic Heart Failure Paroxysmal Atrial Fibrillation Obstructive Sleep Apnea CKD HTN DM Hypercholesterolemia - O2 to keep Spo2 >90% - inhaled bronchodilators - CPAP at night - rate controlled - continue anticoagulation - lasix as needed - monitor urine output, creatinine - can monitor on floor Problem List - Problems (1) Acute on chronic diastolic (congestive) heart failure Code(s): I50.33 - ACUTE ON CHRONIC DIASTOLIC (CONGESTIVE) HEART FAILURE
[2019-02-15 15:09] VITALS: BMI 35.6
--- NOTE | 2019-02-15 15:55 | PN ---
Progress Note, Physician History of Present Illness: Pt seen and examined at bedside. He is awake and alert. He feels that his lower ext edema is improving. - Current Medication List Current Medications: Active Medications Apixaban (Eliquis -) 5 mg PO BID [facility] Last Admin: 02/15/19 10:39 Dose: 5 mg Docusate Sodium (Colace -) 100 mg PO Q12H PRN PRN Reason: CONSTIPATION Folic Acid (Folic Acid -) 1 mg PO DAILY [facility] Last Admin: 02/15/19 10:39 Dose: 1 mg Furosemide (Lasix -) 20 mg PO BID@0600,1400 [facility] Last Admin: 02/15/19 14:24 Dose: 20 mg Guaifenesin (Mucinex -) 600 mg PO BID [facility] Last Admin: 02/15/19 10:42 Dose: 600 mg Insulin Aspart (Novolog Vial Sliding Scale -) 1 vial SQ [facility]; Protocol Last Admin: 02/15/19 11:38 Dose: Not Given Insulin Detemir (Levemir Vial) 20 units SQ AM [facility] Last Admin: 02/15/19 08:45 Dose: 20 units Lidocaine (Lidoderm Patch -) 1 patch TP DAILY [facility] Last Admin: 02/15/19 10:38 Dose: 1 patch Metoprolol Succinate (Toprol Xl -) 100 mg PO BID [facility] Last Admin: 02/15/19 10:44 Dose: 100 mg Miscellaneous (Lidoderm Patch Removal) 1 each MC DAILY@2200 [facility] Last Admin: 02/14/19 22:27 Dose: 1 each Miscellaneous (Lidoderm Patch Removal) 1 each MC DAILY@2200 [facility] Last Admin: 02/15/19 08:36 Dose: Not Given Frjtm-3-Bpxw Ethyl Esters (Lovaza -) 2 gm PO BID [facility] Last Admin: 02/15/19 10:39 Dose: 2 gm Pantoprazole Sodium (Protonix -) 40 mg PO DAILY [facility] Last Admin: 02/15/19 10:38 Dose: 40 mg Polyethylene Glycol (Miralax (For Daily Use) -) 17 gm PO DAILY [facility] Last Admin: 02/15/19 10:42 Dose: Not Given Ranolazine (Ranexa -) 1,000 mg PO BID [facility] Last Admin: 02/15/19 10:43 Dose: 1,000 mg Umeclidinium/Vilanterol (Anoro Ellipta 62.5-25 Mcg Inh) 1 puff IH DAILY [facility] Last Admin: 02/15/19 10:40 Dose: 1 puff - Objective Vital Signs: Vital Signs Temperature 97.8 F 02/15/19 10:00 Pulse Rate 65 02/15/19 10:00 Respiratory Rate 18 02/15/19 10:00 Blood Pressure 114/55 L 02/15/19 10:00 O2 Sat by Pulse Oximetry (%) 100 02/14/19 21:00 Constitutional: Yes: Calm Eyes: Yes: Conjunctiva Clear HENT: Yes: Atraumatic Neck: Yes: Supple Cardiovascular: Yes: S1, S2 Respiratory: Yes: CTA Bilaterally Gastrointestinal: Yes: Soft Genitourinary: Yes: WNL Musculoskeletal: Yes: WNL Edema: Yes Edema: LLE: 1+, RLE: 1+ Neurological: Yes: Oriented Psychiatric: Yes: Oriented Labs: CBC, BMP 02/15/19 06:50 02/15/19 06:50 INR, PTT INR 1.40 (0.83-1.09) H 02/10/19 05:30 Assessment/Plan Current Medications Generic Name Dose Route Start Last Admin Trade Name Freq PRN Reason Stop Dose Admin Apixaban 5 mg 02/10/19 22:00 02/15/19 10:39 Eliquis - PO 5 mg BID [facility] Administration Docusate Sodium 100 mg 02/14/19 08:07 Colace - PO Q12H PRN CONSTIPATION Folic Acid 1 mg 02/14/19 10:00 02/15/19 10:39 Folic Acid - PO 1 mg DAILY [facility] Administration Furosemide 20 mg 02/15/19 06:00 02/15/19 14:24 Lasix - PO 20 mg BID@0600,1400 [facility] Administration Guaifenesin 600 mg 02/14/19 10:00 02/15/19 10:42 Mucinex - PO 600 mg BID [facility] Administration Insulin Aspart 1 vial 02/14/19 11:00 02/15/19 11:38 Novolog Vial Sliding Scale - SQ Not Given ACHS [facility] Protocol Insulin Detemir 20 units 02/15/19 07:00 02/15/19 08:45 Levemir Vial SQ 20 units AM [facility] Administration Lidocaine 1 patch 02/14/19 10:00 02/15/19 10:38 Lidoderm Patch - TP 1 patch DAILY [facility] Administration Metoprolol Succinate 100 mg 02/14/19 10:00 02/15/19 10:44 Toprol Xl - PO 100 mg BID [facility] Administration Miscellaneous 1 each 02/14/19 22:00 02/14/19 22:27 Lidoderm Patch Removal MC 1 each DAILY@2200 [facility] Administration Miscellaneous 1 each 02/14/19 08:07 02/15/19 08:36 Lidoderm Patch Removal MC Not Given DAILY@2200 [facility] Hhgrb-2-Eeij Ethyl Esters 2 gm 02/14/19 10:00 02/15/19 10:39 Lovaza - PO 2 gm BID [facility] Administration Pantoprazole Sodium 40 mg 02/11/19 10:00 02/15/19 10:38 Protonix - PO 40 mg DAILY [facility] Administration Polyethylene Glycol 17 gm 02/14/19 10:00 02/15/19 10:42 Miralax (For Daily Use) - PO Not Given DAILY [facility] Ranolazine 1,000 mg 02/14/19 10:00 02/15/19 10:43 Ranexa - PO 1,000 mg BID [facility] Administration Umeclidinium/Vilanterol 1 puff 02/14/19 10:00 02/15/19 10:40 Anoro Ellipta 62.5-25 Mcg Inh IH 1 puff DAILY [facility] Administration Impression 1. CKD 2. HTN 3. DM 4. resp failure requiring bipap 5. anemia 6. CHF 7. JANETH Plan - cont with lasix - monitor renal function - discussed diet - volume status improving - potassium improved - arb on hold
[2019-02-16] MEDS: ACETAMINOPHEN 325 MG TABLET (FP) PO PRN ×2 (02:29→22:19)
[2019-02-16] MEDS: INSULIN (LEVEMIR) 100 UNITS/ML UNITS SQ SCH (06:24)
[2019-02-16] MEDS: FUROSEMIDE 20 MG TABLET (FP) PO SCH (06:24)
[2019-02-16 06:26] LABS: HEMATOCRIT 28.8 % (35.4-49); HEMOGLOBIN 9.2 GM/dL (11.7-16.9); MCH 31.3 pg (25.7-33.7); MEAN CELL VOLUME 97.9 fl (80-96); MEAN PLT VOLUME 8.9 fl (7.5-11.1); PLATELET COUNT 166 K/MM3 (134-434); RBC 2.95 M/mm3 (4.00-5.60); RDW 29.4 % (11.9-15.9); WHITE BLOOD COUNT 9.2 K/mm3 (4.0-10.0)
[2019-02-16] MEDS: INSULIN SLIDING SCALE (NOVOLOG) 1 VIAL SQ SCH ×4 (06:32→22:20)
[2019-02-16 06:50] LABS: ALBUMIN 3.3 g/dl (3.4-5.0); ALK PHOS 51 U/L (45-117); ANION GAP 6 MMOL/L (8-16); BILIRUBIN,TOTAL 0.8 mg/dL (0.2-1); BLOOD UREA NITROGEN 38 mg/dL (7-18); CALCIUM 8.3 mg/dL (8.5-10.1); CHLORIDE 100 mmol/L (98-107); CO2 30 mmol/L (21-32); CREATININE 1.7 mg/dL (0.55-1.3); GLUCOSE,RANDOM 148 mg/dL (74-106); POTASSIUM 4.6 mmol/L (3.5-5.1); SGOT/AST 33 U/L (15-37); SGPT/ALT 97 U/L (13-61); SODIUM 136 mmol/L (136-145); TOT PROT 7.4 g/dl (6.4-8.2)
--- NOTE | 2019-02-16 09:21 | PN ---
Progress Note, Physician History of Present Illness: events of last 24 hrs noted - Current Medication List Current Medications: Active Medications Acetaminophen (Tylenol -) 650 mg PO Q6H PRN PRN Reason: PAIN Last Admin: 02/16/19 02:29 Dose: 650 mg Apixaban (Eliquis -) 5 mg PO BID [facility] Last Admin: 02/15/19 21:27 Dose: 5 mg Aspirin (Asa -) 81 mg PO DAILY [facility] Docusate Sodium (Colace -) 100 mg PO Q12H PRN PRN Reason: CONSTIPATION Folic Acid (Folic Acid -) 1 mg PO DAILY [facility] Last Admin: 02/15/19 10:39 Dose: 1 mg Furosemide (Lasix -) 20 mg PO BID@0600,1400 [facility] Last Admin: 02/16/19 06:24 Dose: 20 mg Guaifenesin (Mucinex -) 600 mg PO BID [facility] Last Admin: 02/15/19 21:27 Dose: 600 mg Insulin Aspart (Novolog Vial Sliding Scale -) 1 vial SQ [facility]; Protocol Last Admin: 02/16/19 06:32 Dose: Not Given Insulin Detemir (Levemir Vial) 20 units SQ AM [facility] Last Admin: 02/16/19 06:24 Dose: 20 units Lidocaine (Lidoderm Patch -) 1 patch TP DAILY [facility] Last Admin: 02/15/19 10:38 Dose: 1 patch Metoprolol Succinate (Toprol Xl -) 100 mg PO BID [facility] Last Admin: 02/15/19 21:26 Dose: 100 mg Miscellaneous (Lidoderm Patch Removal) 1 each MC DAILY@2200 [facility] Last Admin: 02/15/19 21:27 Dose: 1 each Miscellaneous (Lidoderm Patch Removal) 1 each MC DAILY@2200 [facility] Last Admin: 02/15/19 21:27 Dose: 1 each Ptjee-5-Olnh Ethyl Esters (Lovaza -) 2 gm PO BID [facility] Last Admin: 02/15/19 21:26 Dose: 2 gm Pantoprazole Sodium (Protonix -) 40 mg PO DAILY [facility] Last Admin: 02/15/19 10:38 Dose: 40 mg Polyethylene Glycol (Miralax (For Daily Use) -) 17 gm PO DAILY [facility] Last Admin: 02/15/19 10:42 Dose: Not Given Ranolazine (Ranexa -) 1,000 mg PO BID [facility] Last Admin: 02/15/19 21:26 Dose: 1,000 mg Umeclidinium/Vilanterol (Anoro Ellipta 62.5-25 Mcg Inh) 1 puff IH DAILY [facility] Last Admin: 02/15/19 10:40 Dose: 1 puff - Objective Vital Signs: Vital Signs Temperature 98.1 F 02/16/19 07:18 Pulse Rate 86 02/16/19 07:18 Respiratory Rate 20 02/16/19 07:18 Blood Pressure 118/62 02/16/19 07:18 O2 Sat by Pulse Oximetry (%) 100 02/15/19 09:00 Eyes: Yes: WNL, Conjunctiva Clear, EOM Intact HENT: Yes: WNL, Atraumatic, Normocephalic Neck: Yes: WNL, Supple, Trachea Midline Cardiovascular: Yes: WNL, Regular Rate and Rhythm Respiratory: Yes: WNL, Regular, CTA Bilaterally Gastrointestinal: Yes: WNL, Normal Bowel Sounds Genitourinary: Yes: WNL Musculoskeletal: Yes: WNL Extremities: Yes: WNL Edema: Yes Integumentary: Yes: WNL Neurological: Yes: WNL, Alert, Oriented ...Motor Strength: WNL Psychiatric: Yes: WNL Labs: CBC, BMP 02/16/19 06:00 02/16/19 06:00 INR, PTT INR 1.40 (0.83-1.09) H 02/10/19 05:30 Assessment/Plan - Problems (1) Atrial fibrillation Assessment/Plan: On metoprolol ER for HR control. On apixaban 5 mg bid for anticoagulation. [employer] ICD interrogation notes shock delivered in past weeks for rapid HR, though apparently for AF: modify parameters; now on beta matheus bid; keep electrolytes WNL. Code(s): I48.91 - UNSPECIFIED ATRIAL FIBRILLATION (2) Abnormal liver function test Assessment/Plan: improving since admission, resolution of septic shock. Code(s): R94.5 - ABNORMAL RESULTS OF LIVER FUNCTION STUDIES (3) Hx of CABG Code(s): Z95.1 - PRESENCE OF AORTOCORONARY BYPASS GRAFT (4) Anemia Code(s): D64.9 - ANEMIA, UNSPECIFIED (5) HTN (hypertension) Assessment/Plan: On metoprolol ER. Pt has HTN, CAD, and DM, but elevated K+ precludes use of ACEI or ARB. ECHO: now normal LVEF. Code(s): I10 - ESSENTIAL (PRIMARY) HYPERTENSION Qualifiers: Hypertension type: essential hypertension Qualified Code(s): I10 - Essential (primary) hypertension (6) History of heart artery stent Code(s): Z95.5 - PRESENCE OF CORONARY ANGIOPLASTY IMPLANT AND GRAFT (7) Sleep apnea Code(s): G47.30 - SLEEP APNEA, UNSPECIFIED Qualifiers: Sleep apnea type: unspecified type Qualified Code(s): G47.30 - Sleep apnea , unspecified (8) Septic shock Code(s): A41.9 - SEPSIS, UNSPECIFIED ORGANISM; R65.21 - SEVERE SEPSIS WITH SEPTIC SHOCK (9) Diabetes Code(s): E11.9 - TYPE 2 DIABETES MELLITUS WITHOUT COMPLICATIONS Qualifiers: Diabetes mellitus type: type 2 (10) Cardiac defibrillator in place Code(s): Z95.810 - PRESENCE OF AUTOMATIC (IMPLANTABLE) CARDIAC DEFIBRILLATOR (11) Acute on chronic diastolic (congestive) heart failure Assessment/Plan: On metoprolol. +orthopnea/PND. Lungs: +bilateral rhonchi. Will give dose of IV furosemide. F/u BUN/Cr, electrolytes, daily weight, Is and Os. Code(s): I50.33 - ACUTE ON CHRONIC DIASTOLIC (CONGESTIVE) HEART FAILURE
--- NOTE | 2019-02-16 09:47 | DS ---
Physical Examination Vital Signs: Vital Signs Temperature 97.3 F L 02/16/19 09:18 Pulse Rate 73 02/16/19 09:18 Respiratory Rate 18 02/16/19 09:18 Blood Pressure 121/78 02/16/19 09:18 O2 Sat by Pulse Oximetry (%) 100 02/15/19 09:00 Labs: CBC, BMP 02/16/19 06:00 02/16/19 06:00 Discharge Summary Reason For Visit: ANEMIA,HYPONATREMIA,CONTUSION OF RIB Current Active Problems Abnormal liver function test (Acute) Acute on chronic diastolic (congestive) heart failure (Acute) Atrial fibrillation (Acute) Cardiac defibrillator in place (Acute) Fatty liver (Acute) Fever (Acute) Gallstones (Acute) Hx of CABG (Acute) Rib contusion (Acute) Rib fractures (Acute) Septic shock (Acute) Condition: Improved - Instructions Disposition: [facility] - Home Medications Comprehensive Discharge Medication List: Ambulatory Orders Aspirin [Aspirin EC] 81 mg PO DAILY 09/12/17 Folic Acid 1 mg PO DAILY 09/13/17 Umeclidinium Brm/Vilanterol Tr [Anoro Ellipta 62.5-25 Mcg INH] 1 each IH DAILY 09/13/17 Atorvastatin Calcium [Lipitor] 10 mg PO DAILY 01/25/19 Icosapent Ethyl [Vascepa] 2 gm PO BID 01/25/19 Insulin Glargine,Hum.rec.anlog [Basaglar Kwikpen U-100] 20 unit SQ DAILY Apixaban [Eliquis -] 5 mg PO BID #60 tablet 02/01/19 Folic Acid - 1 mg PO DAILY tablet 02/01/19 Polyethylene Glycol 3350 [Miralax 119 gm Btl -] 17 gm PO DAILY bottle 02/01/19 Ranolazine [Ranexa -] 1,000 mg PO BID tab 02/01/19 Apixaban [Eliquis -] 5 mg PO BID tablet 02/16/19 Aspirin [ASA -] 81 mg PO DAILY tab.chew 02/16/19 Docusate Sodium [Colace -] 100 mg PO Q12H PRN capsule 02/16/19 Folic Acid - 1 mg PO DAILY tablet 02/16/19 Furosemide [Lasix -] 40 mg PO BID@0600,1400 tablet 02/16/19 Guaifenesin [Mucinex -] 600 mg PO BID tablet.er 02/16/19 Insulin Sliding Scale [Novolog Vial Sliding Scale -] 1 vial SQ ACHS units 02/16 Lidocaine 5% Patch [Lidoderm -] 1 patch TP DAILY patch 02/16/19 Metoprolol Succinate [Toprol XL -] 100 mg PO BID tab.sr.24h 02/16/19 Pantoprazole Sodium [Protonix -] 40 mg PO DAILY tablet.ec 02/16/19
[2019-02-16] MEDS ORDERED: PT OWN MED DRAWER 7, Y5N ONE (10:17)
[2019-02-16] MEDS: FOLIC ACID 1 MG TABLET (FP) PO SCH (10:19)
[2019-02-16] MEDS: OMEGA-3 ACID ETHYL ESTERS (FATTY-ACIDS) 1 GM CAPSULE (FP) PO SCH ×2 (10:19→22:16)
[2019-02-16] MEDS: APIXABAN 5 MG TABLET PO SCH ×2 (10:20→22:16)
[2019-02-16] MEDS: ASPIRIN 81 MG CHEWABLE TABLETS PO SCH (10:20)
[2019-02-16] MEDS: POLYETHYLENE GLYCOL 3350 119 GM BTL PO SCH (10:20)
[2019-02-16] MEDS: RANOLAZINE E.R. 1,000 MG TABLET (FP) PO SCH ×2 (10:20→22:16)
[2019-02-16] MEDS: LIDOCAINE 5% TOPICAL PATCH TP SCH (10:20)
[2019-02-16] MEDS: guaiFENesin 600 MG TABLET.ER (FP) PO SCH ×2 (10:20→22:16)
[2019-02-16] MEDS: PANTOPRAZOLE 40 MG TABLET (FP) PO SCH (10:20)
[2019-02-16] MEDS: UMECLIDINIUM/VILANTEROL (ANORO) 62.5/25 MCG INHALER IH SCH (10:21)
[2019-02-16] MEDS: FUROSEMIDE 40 MG TABLET (FP) PO SCH (14:09)
--- NOTE | 2019-02-16 14:13 | PN ---
Progress Note, Physician History of Present Illness: pulmonary alert,oob-chair,comfortable,-sob - Current Medication List Current Medications: Active Medications Acetaminophen (Tylenol -) 650 mg PO Q6H PRN PRN Reason: PAIN Last Admin: 02/16/19 02:29 Dose: 650 mg Apixaban (Eliquis -) 5 mg PO BID [facility] Last Admin: 02/16/19 10:20 Dose: 5 mg Aspirin (Asa -) 81 mg PO DAILY [facility] Last Admin: 02/16/19 10:20 Dose: 81 mg Docusate Sodium (Colace -) 100 mg PO Q12H PRN PRN Reason: CONSTIPATION Folic Acid (Folic Acid -) 1 mg PO DAILY [facility] Last Admin: 02/16/19 10:19 Dose: 1 mg Furosemide (Lasix -) 40 mg PO BID@0600,1400 [facility] Last Admin: 02/16/19 14:09 Dose: 40 mg Guaifenesin (Mucinex -) 600 mg PO BID [facility] Last Admin: 02/16/19 10:20 Dose: 600 mg Insulin Aspart (Novolog Vial Sliding Scale -) 1 vial SQ [facility]; Protocol Last Admin: 02/16/19 11:31 Dose: 2 units Insulin Detemir (Levemir Vial) 20 units SQ AM [facility] Last Admin: 02/16/19 06:24 Dose: 20 units Lidocaine (Lidoderm Patch -) 1 patch TP DAILY [facility] Last Admin: 02/16/19 10:20 Dose: 1 patch Metoprolol Succinate (Toprol Xl -) 100 mg PO BID [facility] Last Admin: 02/16/19 10:19 Dose: 100 mg Miscellaneous (Lidoderm Patch Removal) 1 each MC DAILY@2200 [facility] Last Admin: 02/15/19 21:27 Dose: 1 each Miscellaneous (Lidoderm Patch Removal) 1 each MC DAILY@2200 [facility] Last Admin: 02/15/19 21:27 Dose: 1 each Heofe-4-Guaa Ethyl Esters (Lovaza -) 2 gm PO BID [facility] Last Admin: 02/16/19 10:19 Dose: 2 gm Pantoprazole Sodium (Protonix -) 40 mg PO DAILY [facility] Last Admin: 02/16/19 10:20 Dose: 40 mg Polyethylene Glycol (Miralax (For Daily Use) -) 17 gm PO DAILY [facility] Last Admin: 02/16/19 10:20 Dose: 17 gm Ranolazine (Ranexa -) 1,000 mg PO BID [facility] Last Admin: 02/16/19 10:20 Dose: 1,000 mg Umeclidinium/Vilanterol (Anoro Ellipta 62.5-25 Mcg Inh) 1 puff IH DAILY [facility] Last Admin: 02/16/19 10:21 Dose: 1 puff - Objective Vital Signs: Vital Signs Temperature 97.5 F L 02/16/19 13:18 Pulse Rate 75 02/16/19 13:18 Respiratory Rate 18 02/16/19 13:18 Blood Pressure 108/46 L 02/16/19 13:18 O2 Sat by Pulse Oximetry (%) 97 02/16/19 11:03 Constitutional: Yes: Well Nourished, Calm Eyes: Yes: WNL HENT: Yes: WNL Neck: Yes: WNL Cardiovascular: Yes: Pulse Irregular, S1, S2 Respiratory: Yes: Rales (bibasilar raales) Gastrointestinal: Yes: Normal Bowel Sounds, Soft Extremities: Yes: WNL Edema: Yes Labs: CBC, BMP 02/16/19 06:00 02/16/19 06:00 INR, PTT INR 1.40 (0.83-1.09) H 02/10/19 05:30 Problem List - Problems (1) Acute on chronic diastolic (congestive) heart failure Code(s): I50.33 - ACUTE ON CHRONIC DIASTOLIC (CONGESTIVE) HEART FAILURE (2) Anemia Code(s): D64.9 - ANEMIA, UNSPECIFIED (3) CKD (chronic kidney disease) Code(s): N18.9 - CHRONIC KIDNEY DISEASE, UNSPECIFIED (4) COPD (chronic obstructive pulmonary disease) Code(s): J44.9 - CHRONIC OBSTRUCTIVE PULMONARY DISEASE, UNSPECIFIED (5) Diabetes Code(s): E11.9 - TYPE 2 DIABETES MELLITUS WITHOUT COMPLICATIONS Qualifiers: Diabetes mellitus type: type 2 (6) HTN (hypertension) Code(s): I10 - ESSENTIAL (PRIMARY) HYPERTENSION Qualifiers: Hypertension type: essential hypertension Qualified Code(s): I10 - Essential (primary) hypertension (7) History of heart artery stent Code(s): Z95.5 - PRESENCE OF CORONARY ANGIOPLASTY IMPLANT AND GRAFT (8) Leg edema Code(s): R60.0 - LOCALIZED EDEMA (9) Presence of cardiac pacemaker Code(s): Z95.0 - PRESENCE OF CARDIAC PACEMAKER (10) Sleep apnea Code(s): G47.30 - SLEEP APNEA, UNSPECIFIED Qualifiers: Sleep apnea type: unspecified type Qualified Code(s): G47.30 - Sleep apnea , unspecified Assessment/Plan ASSESSMENT AND PLAN: Acute on Chronic Hypoxic Respiratory Failure improved Pneumonia clinically improved Septic Shock improving COPD Acute on Chronic Systolic/Diastolic Heart Failure Paroxysmal Atrial Fibrillation Obstructive Sleep Apnea CKD HTN DM Hypercholesterolemia - O2 to keep Spo2 >90% - inhaled bronchodilators - CPAP at night - rate controlled - anticoagulation - lasix as needed - monitor urine output, creatinine Problem List - Problems (1) Acute on chronic diastolic (congestive) heart failure Code(s): I50.33 - ACUTE ON CHRONIC DIASTOLIC (CONGESTIVE) HEART FAILURE
--- NOTE | 2019-02-16 15:17 | PN ---
Progress Note, Physician History of Present Illness: Pt seen and examined at bedside. He is awake and alert. He denies shortness of breath. - Current Medication List Current Medications: Active Medications Acetaminophen (Tylenol -) 650 mg PO Q6H PRN PRN Reason: PAIN Last Admin: 02/16/19 02:29 Dose: 650 mg Apixaban (Eliquis -) 5 mg PO BID [facility] Last Admin: 02/16/19 10:20 Dose: 5 mg Aspirin (Asa -) 81 mg PO DAILY [facility] Last Admin: 02/16/19 10:20 Dose: 81 mg Docusate Sodium (Colace -) 100 mg PO Q12H PRN PRN Reason: CONSTIPATION Folic Acid (Folic Acid -) 1 mg PO DAILY [facility] Last Admin: 02/16/19 10:19 Dose: 1 mg Furosemide (Lasix -) 40 mg PO BID@0600,1400 [facility] Last Admin: 02/16/19 14:09 Dose: 40 mg Guaifenesin (Mucinex -) 600 mg PO BID [facility] Last Admin: 02/16/19 10:20 Dose: 600 mg Insulin Aspart (Novolog Vial Sliding Scale -) 1 vial SQ ACHS [facility]; Protocol Last Admin: 02/16/19 11:31 Dose: 2 units Insulin Detemir (Levemir Vial) 20 units SQ AM [facility] Last Admin: 02/16/19 06:24 Dose: 20 units Lidocaine (Lidoderm Patch -) 1 patch TP DAILY [facility] Last Admin: 02/16/19 10:20 Dose: 1 patch Metoprolol Succinate (Toprol Xl -) 100 mg PO BID [facility] Last Admin: 02/16/19 10:19 Dose: 100 mg Miscellaneous (Lidoderm Patch Removal) 1 each MC DAILY@2200 [facility] Last Admin: 02/15/19 21:27 Dose: 1 each Miscellaneous (Lidoderm Patch Removal) 1 each MC DAILY@2200 [facility] Last Admin: 02/15/19 21:27 Dose: 1 each Mtqmr-3-Abui Ethyl Esters (Lovaza -) 2 gm PO BID [facility] Last Admin: 02/16/19 10:19 Dose: 2 gm Pantoprazole Sodium (Protonix -) 40 mg PO DAILY [facility] Last Admin: 02/16/19 10:20 Dose: 40 mg Polyethylene Glycol (Miralax (For Daily Use) -) 17 gm PO DAILY [facility] Last Admin: 02/16/19 10:20 Dose: 17 gm Ranolazine (Ranexa -) 1,000 mg PO BID [facility] Last Admin: 02/16/19 10:20 Dose: 1,000 mg Umeclidinium/Vilanterol (Anoro Ellipta 62.5-25 Mcg Inh) 1 puff IH DAILY [facility] Last Admin: 02/16/19 10:21 Dose: 1 puff - Objective Vital Signs: Vital Signs Temperature 97.5 F L 02/16/19 13:18 Pulse Rate 75 02/16/19 13:18 Respiratory Rate 18 02/16/19 13:18 Blood Pressure 108/46 L 02/16/19 13:18 O2 Sat by Pulse Oximetry (%) 97 02/16/19 11:03 Constitutional: Yes: Calm Eyes: Yes: Conjunctiva Clear HENT: Yes: Atraumatic Neck: Yes: Supple Cardiovascular: Yes: S1, S2 Respiratory: Yes: CTA Bilaterally Gastrointestinal: Yes: Soft Musculoskeletal: Yes: WNL Edema: Yes Edema: LLE: 1+, RLE: 1+ Neurological: Yes: Oriented Psychiatric: Yes: Oriented Labs: CBC, BMP 02/16/19 06:00 02/16/19 06:00 INR, PTT INR 1.40 (0.83-1.09) H 02/10/19 05:30 Assessment/Plan Current Medications Generic Name Dose Route Start Last Admin Trade Name Freq PRN Reason Stop Dose Admin Acetaminophen 650 mg 02/16/19 02:00 02/16/19 02:29 Tylenol - PO 650 mg Q6H PRN Administration PAIN Apixaban 5 mg 02/10/19 22:00 02/16/19 10:20 Eliquis - PO 5 mg BID [facility] Administration Aspirin 81 mg 02/16/19 10:00 02/16/19 10:20 Asa - PO 81 mg DAILY [facility] Administration Docusate Sodium 100 mg 02/14/19 08:07 Colace - PO Q12H PRN CONSTIPATION Folic Acid 1 mg 02/14/19 10:00 02/16/19 10:19 Folic Acid - PO 1 mg DAILY [facility] Administration Furosemide 40 mg 02/16/19 09:43 02/16/19 14:09 Lasix - PO 40 mg BID@0600,1400 [facility] Administration Guaifenesin 600 mg 02/14/19 10:00 02/16/19 10:20 Mucinex - PO 600 mg BID [facility] Administration Insulin Aspart 1 vial 02/14/19 11:00 02/16/19 11:31 Novolog Vial Sliding Scale - SQ 2 units ACHS [facility] Administration Protocol Insulin Detemir 20 units 02/15/19 07:00 02/16/19 06:24 Levemir Vial SQ 20 units AM [facility] Administration Lidocaine 1 patch 02/14/19 10:00 02/16/19 10:20 Lidoderm Patch - TP 1 patch DAILY [facility] Administration Metoprolol Succinate 100 mg 02/14/19 10:00 02/16/19 10:19 Toprol Xl - PO 100 mg BID [facility] Administration Miscellaneous 1 each 02/14/19 22:00 02/15/19 21:27 Lidoderm Patch Removal MC 1 each DAILY@2200 [facility] Administration Miscellaneous 1 each 02/14/19 08:07 02/15/19 21:27 Lidoderm Patch Removal MC 1 each DAILY@2200 [facility] Administration Lieep-0-Xyvj Ethyl Esters 2 gm 02/14/19 10:00 02/16/19 10:19 Lovaza - PO 2 gm BID [facility] Administration Pantoprazole Sodium 40 mg 02/11/19 10:00 02/16/19 10:20 Protonix - PO 40 mg DAILY [facility] Administration Polyethylene Glycol 17 gm 02/14/19 10:00 02/16/19 10:20 Miralax (For Daily Use) - PO 17 gm DAILY [facility] Administration Ranolazine 1,000 mg 02/14/19 10:00 02/16/19 10:20 Ranexa - PO 1,000 mg BID [facility] Administration Umeclidinium/Vilanterol 1 puff 02/14/19 10:00 02/16/19 10:21 Anoro Ellipta 62.5-25 Mcg Inh IH 1 puff DAILY [facility] Administration Impression 1. CKD 2. HTN 3. DM 4. resp failure requiring bipap 5. anemia 6. CHF 7. JANETH Plan - cont with lasix - discussed fluid and salt intake - pt will see Dr Denny in office after discharge - volume status improving - potassium improved - arb on hold
--- NOTE | 2019-02-16 17:24 | PN ---
Progress Note, Physician - Current Medication List Current Medications: Active Medications Acetaminophen (Tylenol -) 650 mg PO Q6H PRN PRN Reason: PAIN Last Admin: 02/16/19 02:29 Dose: 650 mg Apixaban (Eliquis -) 5 mg PO BID [facility] Last Admin: 02/16/19 10:20 Dose: 5 mg Aspirin (Asa -) 81 mg PO DAILY [facility] Last Admin: 02/16/19 10:20 Dose: 81 mg Docusate Sodium (Colace -) 100 mg PO Q12H PRN PRN Reason: CONSTIPATION Folic Acid (Folic Acid -) 1 mg PO DAILY [facility] Last Admin: 02/16/19 10:19 Dose: 1 mg Furosemide (Lasix -) 40 mg PO BID@0600,1400 [facility] Last Admin: 02/16/19 14:09 Dose: 40 mg Guaifenesin (Mucinex -) 600 mg PO BID [facility] Last Admin: 02/16/19 10:20 Dose: 600 mg Insulin Aspart (Novolog Vial Sliding Scale -) 1 vial SQ [facility]; Protocol Last Admin: 02/16/19 11:31 Dose: 2 units Insulin Detemir (Levemir Vial) 20 units SQ AM [facility] Last Admin: 02/16/19 06:24 Dose: 20 units Lidocaine (Lidoderm Patch -) 1 patch TP DAILY [facility] Last Admin: 02/16/19 10:20 Dose: 1 patch Metoprolol Succinate (Toprol Xl -) 100 mg PO BID [facility] Last Admin: 02/16/19 10:19 Dose: 100 mg Miscellaneous (Lidoderm Patch Removal) 1 each MC DAILY@2200 [facility] Last Admin: 02/15/19 21:27 Dose: 1 each Miscellaneous (Lidoderm Patch Removal) 1 each MC DAILY@2200 [facility] Last Admin: 02/15/19 21:27 Dose: 1 each Gucnx-5-Sbbo Ethyl Esters (Lovaza -) 2 gm PO BID [facility] Last Admin: 02/16/19 10:19 Dose: 2 gm Pantoprazole Sodium (Protonix -) 40 mg PO DAILY [facility] Last Admin: 02/16/19 10:20 Dose: 40 mg Polyethylene Glycol (Miralax (For Daily Use) -) 17 gm PO DAILY [facility] Last Admin: 02/16/19 10:20 Dose: 17 gm Ranolazine (Ranexa -) 1,000 mg PO BID [facility] Last Admin: 02/16/19 10:20 Dose: 1,000 mg Umeclidinium/Vilanterol (Anoro Ellipta 62.5-25 Mcg Inh) 1 puff IH DAILY [facility] Last Admin: 02/16/19 10:21 Dose: 1 puff - Objective Vital Signs: Vital Signs Temperature 97.4 F L 02/16/19 15:18 Pulse Rate 67 02/16/19 15:18 Respiratory Rate 18 02/16/19 15:18 Blood Pressure 106/50 L 02/16/19 15:18 O2 Sat by Pulse Oximetry (%) 97 02/16/19 11:03 Labs: CBC, BMP 02/16/19 06:00 02/16/19 06:00 INR, PTT INR 1.40 (0.83-1.09) H 02/10/19 05:30 Assessment/Plan - Problems (1) Fever Assessment/Plan: -ID on board -WBC 10.4 -BC and UC neg -sputum culture neg -afebrile Code(s): R50.9 - FEVER, UNSPECIFIED (2) Rib fractures Assessment/Plan: -pain management Code(s): S22.39XA - FRACTURE OF ONE RIB, UNSP SIDE, INIT FOR CLOS FX (3) Atrial flutter -On Eliquis Assessment/Plan: -cardio on board -continue metoprolol -ELiquis Code(s): I48.92 - UNSPECIFIED ATRIAL FLUTTER Qualifiers: Atrial flutter type: unspecified Qualified Code(s): I48.92 - Unspecified atrial flutter (4) CKD (chronic kidney disease) Assessment/Plan: -BUN/Cr 40/1.6 -renal on board -monitor renal function Code(s): N18.9 - CHRONIC KIDNEY DISEASE, UNSPECIFIED (5) COPD (chronic obstructive pulmonary disease) Assessment/Plan: -pulm on board -Bipap -O2 via NC -keep SpO2 >90% -bronchodilators -Ellipta Code(s): J44.9 - CHRONIC OBSTRUCTIVE PULMONARY DISEASE, UNSPECIFIED (6) Diabetes Assessment/Plan: -BGM ACHS -Levemir + ISS -diabetic diet Code(s): E11.9 - TYPE 2 DIABETES MELLITUS WITHOUT COMPLICATIONS Qualifiers: Diabetes mellitus type: type 2 (7) Abnormal liver function test Assessment/Plan: -LFTs noted to be trending down-AST 50, ALT 160 -amiodarone held due to elev LFT Code(s): R94.5 - ABNORMAL RESULTS OF LIVER FUNCTION STUDIES (8) Acute on chronic diastolic (congestive) heart failure Assessment/Plan: -cardiology on board -Lasix 20mg PO BID--monitor renal function -1L fluid restriction -daily weights Code(s): I50.33 - ACUTE ON CHRONIC DIASTOLIC (CONGESTIVE) HEART FAILURE pATIENT FELL-INITIAL CT NAD--REPEAT IF NEG THEN DC
[2019-02-16] MEDS: LIDOCAINE PATCH REMOVAL MC SCH (22:24)
[2019-02-17] MEDS: FUROSEMIDE 40 MG TABLET (FP) PO SCH (06:21)
[2019-02-17] MEDS: INSULIN SLIDING SCALE (NOVOLOG) 1 VIAL SQ SCH (06:24)
[2019-02-17] MEDS: INSULIN (LEVEMIR) 100 UNITS/ML UNITS SQ SCH (07:14)
[2019-02-17] MEDS: LIDOCAINE PATCH REMOVAL MC SCH (09:08)
--- NOTE | 2019-02-17 09:29 | DS ---
Physical Examination Vital Signs: Vital Signs Temperature 97.5 F L 02/17/19 05:18 Pulse Rate 68 02/17/19 05:18 Respiratory Rate 20 02/17/19 05:18 Blood Pressure 108/53 L 02/17/19 05:18 O2 Sat by Pulse Oximetry (%) 97 02/16/19 11:03 Labs: CBC, BMP 02/16/19 06:00 02/16/19 06:00 Discharge Summary Reason For Visit: ANEMIA,HYPONATREMIA,CONTUSION OF RIB Current Active Problems Abnormal liver function test (Acute) Acute on chronic diastolic (congestive) heart failure (Acute) Atrial fibrillation (Acute) Cardiac defibrillator in place (Acute) Fatty liver (Acute) Fever (Acute) Gallstones (Acute) Hx of CABG (Acute) Rib contusion (Acute) Rib fractures (Acute) Septic shock (Acute) Hospital Course: - Problems (1) Fever Assessment/Plan: -Resolved -ID on board -BC and UC neg -sputum culture neg -afebrile Code(s): R50.9 - FEVER, UNSPECIFIED (2) Rib fractures Assessment/Plan: -pain management Code(s): S22.39XA - FRACTURE OF ONE RIB, UNSP SIDE, INIT FOR CLOS FX (3) Atrial flutter Assessment/Plan: -On Eliquis -cardio on board -continue metoprolol -ELiquis Code(s): I48.92 - UNSPECIFIED ATRIAL FLUTTER Qualifiers: Atrial flutter type: unspecified Qualified Code(s): I48.92 - Unspecified atrial flutter (4) CKD (chronic kidney disease) Assessment/Plan: -stable -renal on board -monitor renal function Code(s): N18.9 - CHRONIC KIDNEY DISEASE, UNSPECIFIED (5) COPD (chronic obstructive pulmonary disease) Assessment/Plan: -pulm on board -Bipap -O2 via NC -keep SpO2 >90% -bronchodilators -Ellipta Code(s): J44.9 - CHRONIC OBSTRUCTIVE PULMONARY DISEASE, UNSPECIFIED (6) Diabetes Assessment/Plan: -BGM ACHS -Levemir + ISS -diabetic diet Code(s): E11.9 - TYPE 2 DIABETES MELLITUS WITHOUT COMPLICATIONS Qualifiers: Diabetes mellitus type: type 2 (7) Abnormal liver function test Assessment/Plan: -LFTs noted to be trending down-AST 50, ALT 160 -amiodarone held due to elev LFT Code(s): R94.5 - ABNORMAL RESULTS OF LIVER FUNCTION STUDIES (8) Acute on chronic diastolic (congestive) heart failure Assessment/Plan: -cardiology on board -Lasix 40mg PO BID--monitor renal function -1L fluid restriction -daily weights Code(s): I50.33 - ACUTE ON CHRONIC DIASTOLIC (CONGESTIVE) HEART FAILURE PATIENT REPEAT CT NAD-- DC Condition: Improved - Instructions Diet, Activity, Other Instructions: follow up cmp cbc and cxr Disposition: INTERMEDIATE FACILITY - Home Medications Comprehensive Discharge Medication List: Ambulatory Orders Aspirin [Aspirin EC] 81 mg PO DAILY 09/12/17 Folic Acid 1 mg PO DAILY 09/13/17 Umeclidinium Brm/Vilanterol Tr [Anoro Ellipta 62.5-25 Mcg INH] 1 each IH DAILY 09/13/17 Atorvastatin Calcium [Lipitor] 10 mg PO DAILY 01/25/19 Icosapent Ethyl [Vascepa] 2 gm PO BID 01/25/19 Insulin Glargine,Hum.rec.anlog [Basaglar Kwikpen U-100] 20 unit SQ DAILY Apixaban [Eliquis -] 5 mg PO BID #60 tablet 02/01/19 Folic Acid - 1 mg PO DAILY tablet 02/01/19 Polyethylene Glycol 3350 [Miralax 119 gm Btl -] 17 gm PO DAILY bottle 02/01/19 Ranolazine [Ranexa -] 1,000 mg PO BID tab 02/01/19 Apixaban [Eliquis -] 5 mg PO BID tablet 02/16/19 Aspirin [ASA -] 81 mg PO DAILY tab.chew 02/16/19 Docusate Sodium [Colace -] 100 mg PO Q12H PRN capsule 02/16/19 Folic Acid - 1 mg PO DAILY tablet 02/16/19 Furosemide [Lasix -] 40 mg PO BID@0600,1400 tablet 02/16/19 Guaifenesin [Mucinex -] 600 mg PO BID tablet.er 02/16/19 Insulin Sliding Scale [Novolog Vial Sliding Scale -] 1 vial SQ ACHS units 02/16 Lidocaine 5% Patch [Lidoderm -] 1 patch TP DAILY patch 02/16/19 Metoprolol Succinate [Toprol XL -] 100 mg PO BID tab.sr.24h 02/16/19 Pantoprazole Sodium [Protonix -] 40 mg PO DAILY tablet.ec 02/16/19
[2019-02-17] MEDS ORDERED: PT OWN MED DRAWER 7, Y5N ONE (09:31)
[2019-02-17] MEDS: PANTOPRAZOLE 40 MG TABLET (FP) PO SCH (09:36)
[2019-02-17] MEDS: ASPIRIN 81 MG CHEWABLE TABLETS PO SCH (09:36)
[2019-02-17] MEDS: RANOLAZINE E.R. 1,000 MG TABLET (FP) PO SCH (09:36)
[2019-02-17] MEDS: APIXABAN 5 MG TABLET PO SCH (09:36)
[2019-02-17] MEDS: OMEGA-3 ACID ETHYL ESTERS (FATTY-ACIDS) 1 GM CAPSULE (FP) PO SCH (09:36)
[2019-02-17] MEDS: FOLIC ACID 1 MG TABLET (FP) PO SCH (09:36)
[2019-02-17] MEDS: guaiFENesin 600 MG TABLET.ER (FP) PO SCH (09:37)
[2019-02-17] MEDS: LIDOCAINE 5% TOPICAL PATCH TP SCH (09:37)
[2019-02-17] MEDS: POLYETHYLENE GLYCOL 3350 119 GM BTL PO SCH (09:37)
[2019-02-17] MEDS: UMECLIDINIUM/VILANTEROL (ANORO) 62.5/25 MCG INHALER IH SCH (09:37)
--- NOTE | 2019-02-17 09:39 | PN ---
Progress Note, Physician History of Present Illness: events of last 24 hrs noted - Current Medication List Current Medications: Active Medications Acetaminophen (Tylenol -) 650 mg PO Q6H PRN PRN Reason: PAIN Last Admin: 02/16/19 22:19 Dose: 650 mg Apixaban (Eliquis -) 5 mg PO BID [facility] Last Admin: 02/17/19 09:36 Dose: 5 mg Aspirin (Asa -) 81 mg PO DAILY [facility] Last Admin: 02/17/19 09:36 Dose: 81 mg Docusate Sodium (Colace -) 100 mg PO Q12H PRN PRN Reason: CONSTIPATION Folic Acid (Folic Acid -) 1 mg PO DAILY [facility] Last Admin: 02/17/19 09:36 Dose: 1 mg Furosemide (Lasix -) 40 mg PO BID@0600,1400 [facility] Last Admin: 02/17/19 06:21 Dose: 40 mg Guaifenesin (Mucinex -) 600 mg PO BID [facility] Last Admin: 02/17/19 09:37 Dose: 600 mg Insulin Aspart (Novolog Vial Sliding Scale -) 1 vial SQ [facility]; Protocol Last Admin: 02/17/19 06:24 Dose: Not Given Insulin Detemir (Levemir Vial) 20 units SQ AM [facility] Last Admin: 02/17/19 07:14 Dose: 20 units Lidocaine (Lidoderm Patch -) 1 patch TP DAILY [facility] Last Admin: 02/17/19 09:37 Dose: 1 patch Metoprolol Succinate (Toprol Xl -) 100 mg PO BID [facility] Last Admin: 02/17/19 09:36 Dose: 100 mg Miscellaneous (Lidoderm Patch Removal) 1 each MC DAILY@2200 [facility] Last Admin: 02/16/19 22:24 Dose: 1 each Miscellaneous (Lidoderm Patch Removal) 1 each MC DAILY@2200 [facility] Last Admin: 02/17/19 09:08 Dose: Not Given Gzkhi-0-Jexw Ethyl Esters (Lovaza -) 2 gm PO BID [facility] Last Admin: 02/17/19 09:36 Dose: 2 gm Pantoprazole Sodium (Protonix -) 40 mg PO DAILY [facility] Last Admin: 02/17/19 09:36 Dose: 40 mg Polyethylene Glycol (Miralax (For Daily Use) -) 17 gm PO DAILY [facility] Last Admin: 02/17/19 09:37 Dose: 17 gm Ranolazine (Ranexa -) 1,000 mg PO BID [facility] Last Admin: 02/17/19 09:36 Dose: 1,000 mg Umeclidinium/Vilanterol (Anoro Ellipta 62.5-25 Mcg Inh) 1 puff IH DAILY [facility] Last Admin: 02/17/19 09:37 Dose: 1 puff - Objective Vital Signs: Vital Signs Temperature 97.5 F L 02/17/19 05:18 Pulse Rate 68 02/17/19 05:18 Respiratory Rate 20 02/17/19 05:18 Blood Pressure 108/53 L 02/17/19 05:18 O2 Sat by Pulse Oximetry (%) 97 02/16/19 11:03 Eyes: Yes: WNL, Conjunctiva Clear, EOM Intact HENT: Yes: WNL, Atraumatic, Normocephalic Neck: Yes: WNL, Supple, Trachea Midline Cardiovascular: Yes: Pulse Irregular Respiratory: Yes: WNL, Regular, CTA Bilaterally Gastrointestinal: Yes: WNL, Normal Bowel Sounds Genitourinary: Yes: WNL Musculoskeletal: Yes: WNL Extremities: Yes: WNL Edema: No Integumentary: Yes: WNL Neurological: Yes: WNL, Alert, Oriented ...Motor Strength: WNL Psychiatric: Yes: WNL Labs: CBC, BMP 02/16/19 06:00 02/16/19 06:00 INR, PTT INR 1.40 (0.83-1.09) H 02/10/19 05:30 Assessment/Plan - Problems (1) Atrial fibrillation Assessment/Plan: On metoprolol ER for HR control. On apixaban 5 mg bid for anticoagulation. [employer] ICD interrogation notes shock delivered in past weeks for rapid HR, though apparently for AF: modify parameters; now on beta matheus bid; keep electrolytes WNL. Code(s): I48.91 - UNSPECIFIED ATRIAL FIBRILLATION (2) Abnormal liver function test Assessment/Plan: improving since admission, resolution of septic shock. Code(s): R94.5 - ABNORMAL RESULTS OF LIVER FUNCTION STUDIES (3) Hx of CABG Code(s): Z95.1 - PRESENCE OF AORTOCORONARY BYPASS GRAFT (4) Anemia Code(s): D64.9 - ANEMIA, UNSPECIFIED (5) HTN (hypertension) Assessment/Plan: On metoprolol ER. Pt has HTN, CAD, and DM, but elevated K+ precludes use of ACEI or ARB. ECHO: now normal LVEF. Code(s): I10 - ESSENTIAL (PRIMARY) HYPERTENSION Qualifiers: Hypertension type: essential hypertension Qualified Code(s): I10 - Essential (primary) hypertension (6) History of heart artery stent Code(s): Z95.5 - PRESENCE OF CORONARY ANGIOPLASTY IMPLANT AND GRAFT (7) Sleep apnea Code(s): G47.30 - SLEEP APNEA, UNSPECIFIED Qualifiers: Sleep apnea type: unspecified type Qualified Code(s): G47.30 - Sleep apnea , unspecified (8) Septic shock Code(s): A41.9 - SEPSIS, UNSPECIFIED ORGANISM; R65.21 - SEVERE SEPSIS WITH SEPTIC SHOCK (9) Diabetes Code(s): E11.9 - TYPE 2 DIABETES MELLITUS WITHOUT COMPLICATIONS Qualifiers: Diabetes mellitus type: type 2 (10) Cardiac defibrillator in place Code(s): Z95.810 - PRESENCE OF AUTOMATIC (IMPLANTABLE) CARDIAC DEFIBRILLATOR (11) Acute on chronic diastolic (congestive) heart failure Assessment/Plan: On metoprolol. +orthopnea/PND. Lungs: +bilateral rhonchi. Will give dose of IV furosemide. F/u BUN/Cr, electrolytes, daily weight, Is and Os. Code(s): I50.33 - ACUTE ON CHRONIC DIASTOLIC (CONGESTIVE) HEART FAILURE
[2019-02-17 10:09] VITALS: BP 147/59; PULSE 73; TEMP 97.6
--- NOTE | 2019-02-17 22:39 | PDOC ---
Documentation entered by Winston Luis SCRIBE, acting as scribe for Bettie De La Garza MD. Bettie De La Garza MD: This documentation has been prepared by the Toby herring Daniel, SCRIBE, under my direction and personally reviewed by me in its entirety. I confirm that the documentation accurately reflects all work, treatment, procedures, and medical decision making performed by me. History of Present Illness - General Chief Complaint: Injury Stated Complaint: fall Time Seen by Provider: 02/01/19 23:36 History Source: Patient, Family Exam Limitations: No Limitations - History of Present Illness Initial Comments: 02/02/19 00:37 The patient is a 73 year old female with a past medical history of anemia, COPD , sleep apnea, CHF s/p CABG, diabetes, HTN, and HLD here today for evaluation of right sided bruising. The patient was seen on 01/25 for dyspnea and was admitted to the hospital. He was discharged today at approximately 3 PM. While admitted gallstones were seen on a scan. Patient returned to the ED for a 7x2 cm bruise around the 11th right rib. Patient reports that he has a dull 5/10 discomfort in that area. Patient states that he did not fall but as per the patients son, the patient fell and has been sluggish since he was discharged. Patient denies headache, lightheadedness. Denies fever, chills. Denies chest pain, shortness of breath. Denies nausea, vomiting, diarrhea, abdominal pain. Allergies: NKA PCP: Dashawn Sauceda Past History - Past Medical History Allergies/Adverse Reactions: Allergies Allergy/AdvReac Type Severity Reaction Status Date / Time No Known Allergies Allergy Verified 01/25/19 12:44 Home Medications: Ambulatory Orders Aspirin [Aspirin EC] 81 mg PO DAILY 09/12/17 Insulin Aspart [Novolog Flexpen] 5 unit SQ TID 09/12/17 Albuterol Sulfate Inhaler - [Ventolin HFA Inhaler -] 1 - 2 inh PO Q4H 09/13/17 Docusate Sodium [Colace -] 100 mg PO DAILY 09/13/17 Folic Acid 1 mg PO DAILY 09/13/17 Linaclotide [Linzess] 145 mcg PO DAILY 09/13/17 Umeclidinium Brm/Vilanterol Tr [Anoro Ellipta 62.5-25 Mcg INH] 1 each IH DAILY 09/13/17 Atorvastatin Calcium [Lipitor] 10 mg PO DAILY 01/25/19 Icosapent Ethyl [Vascepa] 2 gm PO BID 01/25/19 Insulin Glargine,Hum.rec.anlog [Basaglar Kwikpen U-100] 20 unit SQ DAILY Ranolazine [Ranexa] 1,000 mg PO BID 01/25/19 Eltrombopag Olamine [Promacta] 100 mg PO 01/28/19 Acetaminophen [Tylenol .Regular Strength -] 650 mg PO Q4H PRN tablet 02/01/19 Apixaban [Eliquis -] 5 mg PO BID #60 tablet 02/01/19 Atorvastatin Ca [Lipitor] 10 mg PO HS tablet 02/01/19 Folic Acid - 1 mg PO DAILY tablet 02/01/19 Furosemide 80 mg PO DAILY #30 tablet 02/01/19 Insulin Sliding Scale [Novolog Vial Sliding Scale -] 1 vial SQ ACHS units 02/01 Meclizine HCl [Antivert -] 25 mg PO DAILY tablet 02/01/19 Metoprolol Succinate [Toprol XL -] 150 mg PO DAILY #30 tab.sr.24h 02/01/19 Polyethylene Glycol 3350 [Miralax 119 gm Btl -] 17 gm PO DAILY bottle 02/01/19 Ranolazine [Ranexa -] 1,000 mg PO BID tab 02/01/19 Sodium Bicarbonate - 650 mg PO BID tablet 02/01/19 Umeclidinium Brm/Vilanterol Tr [Anoro Ellipta 62.5-25 Mcg INH] 1 puff IH DAILY inhaler 02/01/19 Anemia: Yes Asthma: No Cancer: No Cardiac Disorders: Yes (BYPASS) CVA: No COPD: Yes CHF: No Dementia: No Diabetes: Yes GI Disorders: No Disorders: Yes ("KIDNEY PROBLEM") HTN: Yes Hypercholesterolemia: Yes Liver Disease: No Seizures: No Thyroid Disease: Yes - Surgical History Cardiac Surgery: Yes (BYPASS,STENT,PACEMAKER) - Suicide/Smoking/Psychosocial Hx Smoking History: Never smoked Have you smoked in the past 12 months: No If you are a former smoker, when did you quit?: 15 YRS Information on smoking cessation initiated: No Hx Alcohol Use: No Drug/Substance Use Hx: No Substance Use Type: None Hx Substance Use Treatment: No Review of Systems - Review of Systems Able to Perform ROS?: Yes Comments:: 02/02/19 00:37 GENERAL/CONSTITUTIONAL: No fever or chills. No weakness. HEAD, EYES, EARS, NOSE AND THROAT: No change in vision. No ear pain or discharge. No sore throat. CARDIOVASCULAR: No chest pain or shortness of breath. RESPIRATORY: No cough, wheezing, or hemoptysis. GASTROINTESTINAL: No nausea, vomiting, diarrhea or constipation. GENITOURINARY: No dysuria, frequency, or change in urination. MUSCULOSKELETAL: No joint or muscle swelling or pain. No neck or back pain. SKIN: +7x2 cm bruise around right 11th rib. No rash NEUROLOGIC: No headache, vertigo, loss of consciousness, or change in strength/ sensation. ENDOCRINE: No increased thirst. No abnormal weight change. HEMATOLOGIC/LYMPHATIC: No anemia, easy bleeding, or history of blood clots. ALLERGIC/IMMUNOLOGIC: No hives or skin allergy. *Physical Exam - Vital Signs Last Vital Signs Temp Pulse Resp BP Pulse Ox 99.5 F 108 H 20 125/59 L 99 02/02/19 00:24 02/02/19 00:24 02/02/19 00:24 02/02/19 00:24 02/02/19 00:24 Heart Score/ECG Review - ECG Intrepretation Rhythm: Regular Rhythm (AFLUTTER; same pattern as old) - ECG Impressions Normal ECG: No Non-specific ST Elevation: No Ischemic Changes: No Bradycardia: No Tachycardia: Atrial Flutter ED Treatment Course - LABORATORY CBC & Chemistry Diagram: 02/02/19 01:04 02/02/19 01:04 - ADDITIONAL ORDERS Additional order review: Laboratory Results 02/02/19 02/02/19 02/02/19 01:04 01:04 01:04 PT with INR 20.20 H INR 1.70 H PTT (Actin FS) 35.0 Sodium 128 L Potassium 4.8 Chloride 91 L Carbon Dioxide 30 Anion Gap 7 L BUN 42 H Creatinine 2.0 H Creat Clearance w eGFR 33.10 Random Glucose 328 H* Calcium 9.0 Total Bilirubin 1.0 AST 25 ALT 20 Alkaline Phosphatase 53 Total Protein 7.8 Albumin 3.6 Lipase 355 Blood Type A POSITIVE Antibody Screen Positive H 02/02/19 01:04 RBC 2.54 L MCV 96.4 H MCHC 32.6 RDW 31.7 H MPV 10.1 Neutrophils % 70.1 Lymphocytes % 11.1 Monocytes % 17.9 H Eosinophils % 0.6 Basophils % 0.3 - RADIOLOGY Radiology Studies Ordered: Category Date Time Status RIBS RIGHT SIDE [RAD] Stat Radiology 02/02/19 00:48 Taken - Medications Given in the ED: ED Medications Discontinued Medications Generic Name Dose Route Start Last Admin Trade Name Alexis PRN Reason Stop Dose Admin Insulin Human Regular 2 units 02/02/19 02:12 02/02/19 02:20 Novolin R Vial *For Ivpush Or Iv Drip Only* SQ 02/02/19 02:13 2 units ONCE ONE Administration Sodium Chloride 250 ml 02/02/19 03:19 02/02/19 03:38 Normal Saline - IV 02/02/19 03:20 250 ml ONCE ONE Administration Medical Decision Making - Medical Decision Making 02/02/19 04:57 Pt has hyponatremia and appears to be dehydrated. His BUN (40 up from 20) and Cr (2.0 up from 1.5) are elevated from yesterday; He was discharged at 3PM Pt has dark urine at bedside. He is hyponatremic in the ER. Pt has a contusion to his chest. He states that he did not fall. Pt is alert and oriented and speaking coherently. 02/02/19 05:04 Pt will be admitted for further evaluation, hydration and assessment. 02/02/19 05:05 son home:[id number] *DC/Admit/Observation/Transfer Diagnosis at time of Disposition: Hyponatremia, Contusion of rib on right side - Discharge Dispostion Condition at time of disposition: Guarded Decision to Admit order: Yes - Referrals Referrals: Dashawn Sauceda [Primary Care Provider] - - Patient Instructions - Post Discharge Activity
--- NOTE | 2019-02-19 14:16 | PN ---
Progress Note (short form) - Note Progress Note: Paged for Pt. who had an unwitnessed fall. Pt. states that he did not hit his head when he fell and that he used his hand to brace. Pt. denied any lightheadedness or dizziness before or after the fall. Pt. states that his legs felt weak as he tried to walk to the end of the bed, which the Pt. attributed to the lack of use. Pt. denied any headache, changes in vision, nausea or any numbness/tingling. VS: 98.1, HR: 86, BP: 118/62, saturating at 97%. Per discussion with nurse at bedside she did not note any changes from his baseline. CN III-XII were in tact. Pt. states that vision in his left eye is 20/ 400. Pt. had 5/5 upper body strength throughout, Pt. was able to life both legs off the bed for greater than 5 seconds without drift. Pt. had 5/5 plantar and dorsiflexion. Decision was made to follow closely and perform Q1H neurovascular checks. Head CT was ordered and negative.
== END 2019-02-17 12:05 | DRG 682 ==
LOC: JER 22:49 → JERBED 02-02 04:56 → J4W 02-02 10:49 → OBSVTOIN 02-05 09:05 → JICU 02-06 15:53 → J8W 02-13 16:28
PROVIDERS: ADMIT Internal Medicine; ATTEND Family Medicine
DX: N17.9 Acute kidney failure, unspecified (principal); A41.9 Sepsis, unspecified organism; R65.21 Severe sepsis with septic shock; J18.9 Pneumonia, unspecified organism; I50.43 Acute on chronic combined systolic (congestive) and diastolic (congestive) heart failure; S22.41XA Multiple fractures of ribs, right side, initial encounter for closed fracture; E87.1 Hypo-osmolality and hyponatremia; I48.92 Unspecified atrial flutter; J96.12 Chronic respiratory failure with hypercapnia; J96.11 Chronic respiratory failure with hypoxia; I13.0 Hypertensive heart and chronic kidney disease with heart failure and stage 1 through stage 4 chronic kidney disease, or unspecified chronic kidney disease; I24.8 Other forms of acute ischemic heart disease; D68.9 Coagulation defect, unspecified; G93.49 Other encephalopathy; E86.0 Dehydration; D64.9 Anemia, unspecified; J44.9 Chronic obstructive pulmonary disease, unspecified; Z99.81 Dependence on supplemental oxygen; Z95.1 Presence of aortocoronary bypass graft; E78.00 Pure hypercholesterolemia, unspecified; Z79.4 Long term (current) use of insulin; E11.65 Type 2 diabetes mellitus with hyperglycemia; G47.30 Sleep apnea, unspecified; K59.00 Constipation, unspecified; E11.22 Type 2 diabetes mellitus with diabetic chronic kidney disease; N18.9 Chronic kidney disease, unspecified; R26.81 Unsteadiness on feet; I48.91 Unspecified atrial fibrillation; I25.10 Atherosclerotic heart disease of native coronary artery without angina pectoris; Z95.5 Presence of coronary angioplasty implant and graft; G47.33 Obstructive sleep apnea (adult) (pediatric); W19.XXXA Unspecified fall, initial encounter; Y93.89 Activity, other specified; Y92.89 Other specified places as the place of occurrence of the external cause; Y99.8 Other external cause status; R94.5 Abnormal results of liver function studies; K59.09 Other constipation; E87.5 Hyperkalemia; F10.10 Alcohol abuse, uncomplicated; H49.02 Third [oculomotor] nerve palsy, left eye; E11.42 Type 2 diabetes mellitus with diabetic polyneuropathy; G25.3 Myoclonus; R16.1 Splenomegaly, not elsewhere classified; I48.0 Paroxysmal atrial fibrillation; D72.829 Elevated white blood cell count, unspecified; Z95.810 Presence of automatic (implantable) cardiac defibrillator; E66.9 Obesity, unspecified; Z68.35 Body mass index [BMI] 35.0-35.9, adult
CPT/HCPCS: 10005; 36415; 36430; 36511; 36600; 70450-TC; 71045-TC-FY; 71101-TC-RT-FY; 71250-TC; 74018-TC-FY; 74176-TC; 76705-TC; 80048; 80053; 80061; 80074; 80076; 81003; 82140; 82172; 82247; 82436; 82465; 82550; 82565; 82728; 82803; 82947; 82962; 82977; 83010; 83036; 83516; 83540; 83550; 83605; 83690; 83721; 83735; 83883; 83930; 83935; 84100; 84132; 84133; 84300; 84443; 84450; 84460; 84478; 84484; 85025; 85027; 85610; 85730; 86038; 86850; 86870; 86900; 86901; 86902; 86922; 87040; 87070; 87086; 87205; 87899; 93005; 93010; 93306-TC; 94640; 94660; 97116-GP; 97161-GP; 99285-25; G0378; G0480; J0282; J7030; P9017; P9038; P9058; Q9967

== ENCOUNTER 2019-02-27 18:26 | Inpatient (IN) | payer OTHER | END 2019-03-08 17:59 | LOC: JERBED 02-28 00:02 → JER 18:26 → J4W 02-28 19:59 ==

== ENCOUNTER 2019-10-14 10:09 | Inpatient (IN) | payer OTHER ==
--- NOTE | 2019-10-14 13:32 | PDOC ---
Attending Attestation - Resident Resident Name: Jennifer Mijares - ED Attending Attestation I have performed the following: I have examined & evaluated the patient, The case was reviewed & discussed with the resident, I agree w/resident's findings & plan, Exceptions are as noted - HPI HPI: 10/14/19 16:51 74yo M wih PMH of CAD s/p pacemaker/AICD, COPD, CHF, Aflutter (on eliquis), DM, JARET, CKD presents to the ED for abnormal outpatient labs patient complaining of fatigue outpatient abnormalities was a low hemoglobin which patient has from time to time - Physicial Exam PE: 10/14/19 16:52 Vitals: Triage Vital signs reviewed General Appearance: No acute distress, well nourished well developed, Head: Atraumatic, Cardiac: Regular rate and rhythym, no murmurs, no rubs, no gallops, Lungs: Clear to auscultation bilateral, good air movement bilaterally, Abdomen: Soft, non distended, normal bowel sounds, non tender to palpation Extremities: Full range of motion to all extremities, no cyanosis, clubbing, or edema Skin: Warm and dry, no rashes or lesions, no rash, no petechiae Psych: Normal mood, normal affect - Medical Decision Making 10/14/19 16:53 Labs notable for hemoglobin of 6.5 troponin of 2.01 no ischemic changes on EKG when trended compared to previous troponins this appears to be patient's baseline however non-STEMI versus demand ischemia from anemia remain on the differential We will admit to hospital on telemetry for blood transfusion and serial troponins and cardiology consultation Heart Score/ECG Review - ECG Impressions Comment:: 10/14/19 16:52 EKG demonstrates known Q waves inferiorly no ST elevations no T wave inversions unchanged from previous Interpreted by me.
--- NOTE | 2019-10-14 14:00 | PDOC ---
History of Present Illness - General Chief Complaint: Blood Transfusion Stated Complaint: LABS Time Seen by Provider: 10/14/19 10:59 - History of Present Illness Initial Comments: HPI: 74yo M wih PMH of CAD s/p pacemaker/AICD, COPD, CHF, Aflutter (on eliquis), DM, JARET, CKD presenting with abnormal lab value. Son is at the bedside providing collateral history. He reports that patient received a call regarding a low hemoglobin level. Patient has been transfused in the past for low hemoglobin, though they are not sure why his levels are so low. No melena, hematochezia, or hematemesis. Complains of weakness and sluggishness for the past week or so. Patient feels very short of breath after exerting himself but this is at baseline. Has felt some mild chest pain for the past two or three days. No easy bleeding or bruising. No fevers or chills. PCP: Dr. Mace Cardiology: Dr. Maddox ROS: Constitutional: no fever, no chills HEENT: no throat pain, no dysphagia Cardiovascular: +chest pain, no palpitations Respiratory: no cough, +shortness of breath Gastrointestinal: no abdominal pain, no nausea Genitourinary: no dysuria, no hematuria Musculoskeletal: no myalgia, no arthralgia Skin: no rash, no itching Neurologic: no headache, +weakness PE: General: Awake, alert, and fully oriented, in no acute distress, pale Head: No signs of trauma Eyes: EOMI, sclera anicteric ENT: Moist mucus membranes Neck: Normal ROM, supple Lungs: Crackles at the right base Cardio: Regular rhythm, S1 and S2 present Abdomen: Soft, nontender Extremities: Normal range of motion, Distal pulses present SKIN: Warm, Dry, normal turgor Neurologic: Cranial nerves II through XII grossly intact. Normal speech ED Course/MDM: DDX including but not limited to Anemia of chronic disease, GI bleed, upper ( ulcer, gastritis, fistula, varices) vs lower (bleeding hemorrhoid, diverticuli , malignancy, angiodysplasia Labs, EKG, CXR EKG: rate 86, QTc 449, sinus with PACs, no acute changes when compared to previous EKG 03/04/19 10/14/19 14:00 CBC WBC 7.0 K/mm3 (4.0-10.0) 10/14/19 14:02 RBC 1.99 M/mm3 (4.00-5.60) L 10/14/19 14:02 Hgb 6.5 GM/dL (11.7-16.9) L* 10/14/19 14:02 Hct 19.7 % (35.4-49) L D 10/14/19 14:02 MCV 99.0 fl (80-96) H 10/14/19 14:02 MCH 32.7 pg (25.7-33.7) 10/14/19 14:02 MCHC 33.0 g/dl (32.0-35.9) 10/14/19 14:02 RDW 32.1 % (11.9-15.9) H 10/14/19 14:02 Plt Count 132 K/MM3 (134-434) L 10/14/19 14:02 MPV 9.4 fl (7.5-11.1) D 10/14/19 14:02 Absolute Neuts (auto) 5.3 K/mm3 (1.5-8.0) 10/14/19 14:02 Neutrophils % 75.0 % (42.8-82.8) 10/14/19 14:02 Neutrophils % (Manual) 62.4 % (42.8-82.8) 10/14/19 14:02 Band Neutrophils % 4.9 % 10/14/19 14:02 Lymphocytes % 14.0 % (8-40) 10/14/19 14:02 Lymphocytes % (Manual) 12.9 % (8-40) 10/14/19 14:02 Monocytes % 10.1 % (3.8-10.2) 10/14/19 14:02 Monocytes % (Manual) 9 % (3.8-10.2) D 10/14/19 14:02 Eosinophils % 0.5 % (0-4.5) 10/14/19 14:02 Eosinophils % (Manual) 1.0 % (0-4.5) D 10/14/19 14:02 Basophils % 0.4 % (0-2.0) 10/14/19 14:02 Basophils % (Manual) 0.0 % (0-2.0) 10/14/19 14:02 Myelocytes % (Man) 7 % (0-2) H D 10/14/19 14:02 Promyelocytes % (Man) 1 % (0-2) D 10/14/19 14:02 Blast Cells % (Manual) 0 % (0-0) 10/14/19 14:02 Nucleated RBC % 1 % (0-0) H 10/14/19 14:02 Metamyelocytes 2 % (0-2) D 10/14/19 14:02 Hypochromia 2+ 10/14/19 14:02 Platelet Estimate Decreased 10/14/19 14:02 Polychromasia 2+ 10/14/19 14:02 Poikilocytosis 1+ 10/14/19 14:02 Anisocytosis 2+ 10/14/19 14:02 Microcytosis 2+ 10/14/19 14:02 Macrocytosis 0 10/14/19 14:02 Ovalocytes 2+ 10/14/19 14:02 No leukocytosis Hgb 6.5 CMP Sodium 132 mmol/L (136-145) L 10/14/19 14:02 Potassium 4.6 mmol/L (3.5-5.1) 10/14/19 14:02 Chloride 97 mmol/L (98-107) L 10/14/19 14:02 Carbon Dioxide 27 mmol/L (21-32) 10/14/19 14:02 Anion Gap 8 MMOL/L (8-16) 10/14/19 14:02 BUN 33.9 mg/dL (7-18) H 10/14/19 14:02 Creatinine 1.9 mg/dL (0.55-1.3) H 10/14/19 14:02 Est GFR (CKD-EPI)AfAm 39.93 10/14/19 14:02 Est GFR (CKD-EPI)NonAf 34.45 10/14/19 14:02 Random Glucose 279 mg/dL (74-106) H 10/14/19 14:02 Calcium 9.5 mg/dL (8.5-10.1) 10/14/19 14:02 Total Bilirubin 1.0 mg/dL (0.2-1) 10/14/19 14:02 AST 16 U/L (15-37) 10/14/19 14:02 ALT 19 U/L (13-61) 10/14/19 14:02 Alkaline Phosphatase 51 U/L (45-117) 10/14/19 14:02 Troponin I 2.01 ng/ml (0.00-0.05) H* 10/14/19 14:02 Total Protein 7.7 g/dl (6.4-8.2) 10/14/19 14:02 Albumin 4.0 g/dl (3.4-5.0) 10/14/19 14:02 Mild hyponatermia Cr elevated, at patient's baseline No transaminitis Tpn elevated, 2.01, however patient has had elevated troponins previously CXR as read by radiology: " EXAM#: TYPE/EXAM: RESULT: [id number] RAD/CHEST PA LAT Chest: Shortness of breath 2 views of the chest reveal a prominent mediastinum with sternal sutures and clips, sclerotic knob , pacemaker, some congestive changes and patchy right infiltrate with old right rib trauma. Since the lungs are better aerated. There is a scoliosis with arthritic findings. Correlation recommended Reported By: Ren Brumfield MD 10/14/19 [id number] " Admission is indicated for clinically significant signs/symptoms indicated by chest pain, dyspnea, and elevated troponin Discussed case with Dr. Guerrero who accepted patient for admission under Dr. Hancock Per [facility] team request, will consult cardiology 10/14/19 15:48 Page to patient's simplex printer installer, Dr. Maddox, 10/14/19 16:[address] Mackenzie; patient to be evaluated by cardiology; AICD may be checked by Mobile Captain as it was noted in documentation that it was near the end of it's battery life; no further recommendations at this time 10/14/19 16:19 FOBT negative Past History - Past Medical History Allergies/Adverse Reactions: Allergies Allergy/AdvReac Type Severity Reaction Status Date / Time No Known Allergies Allergy Verified 10/14/19 10:17 Home Medications: Ambulatory Orders Aspirin [Aspirin EC] 81 mg PO DAILY 09/12/17 Folic Acid 1 mg PO DAILY 09/13/17 Atorvastatin Calcium [Lipitor] 10 mg PO DAILY 01/25/19 Ranolazine [Ranexa -] 1,000 mg PO BID tab 02/01/19 Pantoprazole Sodium [Protonix -] 40 mg PO DAILY tablet.ec 02/16/19 Icosapent Ethyl [Vascepa] 1 gm PO BID 02/27/19 Acetaminophen [Tylenol .Regular Strength -] 650 mg PO Q6H PRN tablet 03/08/19 Apixaban [Eliquis -] 2.5 mg PO BID tablet 03/08/19 Furosemide [Lasix -] 40 mg PO DAILY tablet 03/08/19 Insulin (Levemir) [Levemir Vial] 25 units SQ HS #100 units 03/08/19 Insulin (Levemir) [Levemir Vial] 35 units SQ AM #100 units 03/08/19 Insulin Sliding Scale [Novolog Vial Sliding Scale -] 1 vial SQ ACHS #0 units Metoprolol Succinate [Toprol XL -] 100 mg PO DAILY tab.sr.24h 03/08/19 Anemia: Yes Asthma: No Cancer: No Cardiac Disorders: Yes ([place], BYPASS, stent, angina, CABG) CVA: No COPD: Yes CHF: Yes Dementia: No Diabetes: Yes GI Disorders: No Disorders: Yes (CKD) HTN: Yes Hypercholesterolemia: Yes Liver Disease: No Seizures: No Thyroid Disease: Yes - Surgical History Cardiac Surgery: Yes (BYPASS,STENT,PACEMAKER) - Immunization History Td Vaccination: Yes TDAP Vaccination: Yes Immunization Up to Date: Yes - Psycho Social/Smoking Cessation Hx Smoking History: Never smoked Have you smoked in the past 12 months: No If you are a former smoker, when did you quit?: 15 YRS Hx Alcohol Use: No Drug/Substance Use Hx: No Substance Use Type: None Hx Substance Use Treatment: No *Physical Exam - Vital Signs Last Vital Signs Temp Pulse Resp BP Pulse Ox 97.8 F 94 H 16 111/47 L 95 10/14/19 10:14 10/14/19 10:14 10/14/19 10:14 10/14/19 10:14 10/14/19 10:14 ED Treatment Course - LABORATORY CBC & Chemistry Diagram: 10/14/19 14:02 10/14/19 14:02 - RADIOLOGY Radiology Studies Ordered: Category Date Time Status CHEST PA & LAT [RAD] Stat Radiology 10/14/19 11:20 Ordered Discharge - Discharge Information Problems reviewed: Yes Clinical Impression/Diagnosis: Elevated troponin Anemia Qualifiers: Anemia type: unspecified type Qualified Code(s): D64.9 - Anemia, unspecified Condition: Guarded - Admission Yes - Follow up/Referral - Patient Discharge Instructions - Post Discharge Activity
[2019-10-14 14:34] LABS: BASO % 0.4 % (0-2.0); EOS % 0.5 % (0-4.5); HEMATOCRIT 19.7 % (35.4-49); MCH 32.7 pg (25.7-33.7); MEAN PLT VOLUME 9.4 fl (7.5-11.1); MONO % 10.1 % (3.8-10.2); PLATELET COUNT 132 K/MM3 (134-434); RBC 1.99 M/mm3 (4.00-5.60); RDW 32.1 % (11.9-15.9)
[2019-10-14 14:38] LABS: BLOOD UREA NITROGEN 33.9 mg/dL (7-18); CALCIUM 9.5 mg/dL (8.5-10.1); CREATININE 1.9 mg/dL (0.55-1.3); POTASSIUM 4.6 mmol/L (3.5-5.1); TOT PROT 7.7 g/dl (6.4-8.2)
[2019-10-14 14:44] LABS: INR 1.46 (0.83-1.09); PROTHROMBIN TIME (PATIENT) 17.3 SEC (9.7-13.0)
[2019-10-14 14:47] LABS: HEMOGLOBIN 6.5 GM/dL (11.7-16.9)
[2019-10-14] MEDS ORDERED: SODIUM CHLORIDE 0.9% 500 ML INFUS.BAG IV ONE (17:17)
[2019-10-14 17:23] LABS: ANISOCYTOSIS 2+; MACROCYTOSIS 0; OVALOCYTE 2+; PLATELET ESTIMATE DECREASED
--- NOTE | 2019-10-14 17:27 | HP ---
Hospitalist Medicine Admission 74 y/o M with PMH CAD s/p PPM ([facility]; [place] [facility], [employer]), diastolic CHF, aflutter (eliquis), IDDM, CKD, who presents for low Hb. Per patient, he recently went to his PMD, Dr. Mace and was found to have a low Hb between 6- 7. Found this information out this past week, since his PMD was on vacation. During this time, pt has felt REED with >15min ambulation, which he did not have previously. Last received a blood transfusion one month ago while he got his battery changed for his pacemaker. Has had past hx MDS and follows with heme/ onc at [facility]- Dr. Zachariah Torre. Pt denies other sx at this time ; no FRANCO, fever, chills, SOB, or changes in urinary or bowel function. No signs of GI bleeding. Endorses distant episode of stomach ulcers. Was started on eliquis within the last two years. No melena, hematochezia, or hemetemesis. 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 past hx smoking use; quit. used to drink heavily , however quit. no drug use. Allergies No Known Allergies Allergy (Verified 10/14/19 10:17) HOME MEDICATIONS: Home Medications Medication Instructions Recorded Aspirin [Aspirin EC] 81 mg PO DAILY 09/12/17 Folic Acid 1 mg PO DAILY 09/13/17 Atorvastatin Calcium [Lipitor] 10 mg PO DAILY 01/25/19 Ranolazine [Ranexa -] 1,000 mg PO BID tab 02/01/19 Pantoprazole Sodium [Protonix -] 40 mg PO DAILY tablet.ec 02/16/19 Icosapent Ethyl [Vascepa] 1 gm PO BID 02/27/19 Acetaminophen [Tylenol .Regular 650 mg PO Q6H PRN tablet 03/08/19 Strength -] Apixaban [Eliquis -] 2.5 mg PO BID tablet 03/08/19 Furosemide [Lasix -] 40 mg PO DAILY tablet 03/08/19 Insulin (Levemir) [Levemir Vial] 25 units SQ HS #100 units 03/08/19 Insulin (Levemir) [Levemir Vial] 35 units SQ AM #100 units 03/08/19 Insulin Sliding Scale [Novolog 1 vial SQ ACHS #0 units 03/08/19 Vial Sliding Scale -] Metoprolol Succinate [Toprol XL -] 100 mg PO DAILY tab.sr.24h 03/08/19 PHYSICAL EXAMINATION Vital Signs - 24 hr 10/14/19 10:14 Temperature 97.8 F Pulse Rate 94 H Respiratory 16 Rate Blood Pressure 111/47 L O2 Sat by Pulse 95 Oximetry (%) general: resting in bed, in NAD. mild SOB while conversing HEENT: NCAT, +conjunctival pallor neck: supple, no JVD, no hepatojugular cardio: S1, S2 RRR. no r/m/g pulm: +mild crackles R>L. no accessory m usage abdomen: obese, nontender, nondistended LE: 2+ pulses, no edema neuro: +slow speech (baseline). AIR INTERCEPT CONTROLLER 2-12 grossly intact Laboratory Results - last 24 hr 10/14/19 10/14/19 10/14/19 14:02 14:02 14:02 WBC 7.0 RBC 1.99 L Hgb 6.5 L* Hct 19.7 L D MCV 99.0 H MCH 32.7 MCHC 33.0 RDW 32.1 H Plt Count 132 L MPV 9.4 D Absolute Neuts (auto) 5.3 Neutrophils % 75.0 Lymphocytes % 14.0 Monocytes % 10.1 Eosinophils % 0.5 Basophils % 0.4 Nucleated RBC % 1 H PT with INR 17.30 H INR 1.46 H Sodium 132 L Potassium 4.6 Chloride 97 L Carbon Dioxide 27 Anion Gap 8 BUN 33.9 H Creatinine 1.9 H Est GFR (CKD-EPI)AfAm 39.93 Est GFR (CKD-EPI)NonAf 34.45 Random Glucose 279 H Calcium 9.5 Total Bilirubin 1.0 AST 16 ALT 19 Alkaline Phosphatase 51 Troponin I Total Protein 7.7 Albumin 4.0 Stool Occult Blood Blood Type Antibody Screen Crossmatch 10/14/19 10/14/19 10/14/19 14:02 14:02 15:54 WBC RBC Hgb Hct MCV MCH MCHC RDW Plt Count MPV Absolute Neuts (auto) Neutrophils % Lymphocytes % Monocytes % Eosinophils % Basophils % Nucleated RBC % PT with INR INR Sodium Potassium Chloride Carbon Dioxide Anion Gap BUN Creatinine Est GFR (CKD-EPI)AfAm Est GFR (CKD-EPI)NonAf Random Glucose Calcium Total Bilirubin AST ALT Alkaline Phosphatase Troponin I 2.01 H* Total Protein Albumin Stool Occult Blood Negative Blood Type A POSITIVE Antibody Screen Negative Crossmatch See Detail EKG: MSR rate 86bpm, +ST dep inferior leads, lateral changes- similar to previous. qtc 449ms CXR: official read mentions infiltrate, however pt asymptomatic. no effusions ASSESSMENT/PLAN: 74 y/o M with PMH CAD s/p PPM ([facility]; [place] [facility], [employer]), diastolic CHF, aflutter (eliquis), IDDM, CKD, who presents for low Hb. #Normocytic anemia -possible 2/2 CKD, MDS -f/u iron studies, b12, folate, stool occult -likely chronic. no signs of overt bleeding -transfusion threshold to Hb>8; as with cardiac hx -can still c/w asa, eliquis as no overt signs of bleeding -will need to call PMD, heme/onc at [facility] for additional info -to receive 1 U PRBCs, follow post-transfusion CBC -will give 500 cc NS bolus as dry #CAD s/p PPM -c/w asa, ranexa #Diastolic CHF -hold lasix, as dry -had recent ECHO 02/2019; LVSF normal, mod TR, MR -wts, na control 2g, strict i/o -not in exacerbation -c/w metoprolol for rate control #tropinemia -likely chronic, may partially be demand -c/t trend. first is 2.01 #hx flutter -c/w eliquis #IDDM -c/w lev 25u sq HS, 35u AM -ISS, BGM ACHS #F/E/N IV NS 500 cc bolus now continue to follow lytes na controlled diet #PPX on eliquis, may continue as without signs of overt bleeding #Dispo admit to med-surg not in CHF exacerbation, stable Visit type - Emergency Visit Emergency Visit: Yes ED Registration Date: 10/14/19 Care time: The patient presented to the Emergency Department on the above date and was hospitalized for further evaluation of their emergent condition. - New Patient This patient is new to me today: Yes Date on this admission: 10/14/19 - Critical Care Critical Care patient: No
--- NOTE | 2019-10-14 20:52 | PN ---
Teaching Attending Note Name of Resident: Natalie Guerrero ATTENDING PHYSICIAN STATEMENT I saw and evaluated the patient. I reviewed the resident's note and discussed the case with the resident. I agree with the resident's findings and plan as documented. 74 M h/o CAD s/p PPM ([facility]; [place] [employer], [employer]), diastolic CHF, Aflutter ( eliquis), IDDM, CKD, ?MDS with chronic anemia who presents for symptomatic anemia. Per patient, he recently went to his PMD, Dr. Mace and was found to have a low Hb between 6-7, as per chart his baseline is between 8-9. Patient endorses new REED when walking >15 mins which is new. Last received a blood transfusion one month ago while he got his battery changed for his pacemaker. Has had past hx MDS and follows with heme/onc at [facility]- Dr. Zachariah Torre. Pt denies other sx at this time ; no FRANCO, fever, chills, SOB, or changes in urinary or bowel function. No signs of GI//upper respiratory bleeding. Was started on eliquis within the last two years. No melena, hematochezia, or hemetemesis. GA: resting in bed, in NAD. mild SOB while conversing HEENT: NCAT, +conjunctival pallor Neck: supple, no JVD, no hepatojugular reflux Chest: +mild crackles R>L. no accessory muscle usage CVS: S1, S2 RRR. 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 Vital Signs - 24 hr 10/14/19 10:14 Temperature 97.8 F Pulse Rate 94 H Respiratory 16 Rate Blood Pressure 111/47 L O2 Sat by Pulse 95 Oximetry (%) Laboratory Results - last 24 hr 10/14/19 10/14/19 10/14/19 14:02 14:02 14:02 WBC 7.0 RBC 1.99 L Hgb 6.5 L* Hct 19.7 L D MCV 99.0 H MCH 32.7 MCHC 33.0 RDW 32.1 H Plt Count 132 L MPV 9.4 D Absolute Neuts (auto) 5.3 Neutrophils % 75.0 Neutrophils % (Manual) 62.4 Band Neutrophils % 4.9 Lymphocytes % 14.0 Lymphocytes % (Manual) 12.9 Monocytes % 10.1 Monocytes % (Manual) 9 D Eosinophils % 0.5 Eosinophils % (Manual) 1.0 D Basophils % 0.4 Basophils % (Manual) 0.0 Myelocytes % (Man) 7 H D Promyelocytes % (Man) 1 D Blast Cells % (Manual) 0 Nucleated RBC % 1 H Metamyelocytes 2 D Hypochromia 2+ Platelet Estimate Decreased Polychromasia 2+ Poikilocytosis 1+ Anisocytosis 2+ Microcytosis 2+ Macrocytosis 0 Ovalocytes 2+ PT with INR 17.30 H INR 1.46 H Sodium 132 L Potassium 4.6 Chloride 97 L Carbon Dioxide 27 Anion Gap 8 BUN 33.9 H Creatinine 1.9 H Est GFR (CKD-EPI)AfAm 39.93 Est GFR (CKD-EPI)NonAf 34.45 Random Glucose 279 H Calcium 9.5 Iron TIBC Iron Saturation Unsaturated IBC Ferritin Total Bilirubin 1.0 AST 16 ALT 19 Alkaline Phosphatase 51 Troponin I Total Protein 7.7 Albumin 4.0 Vitamin B12 Serum Folate Stool Occult Blood Blood Type Antibody Screen Crossmatch 10/14/19 10/14/19 10/14/19 14:02 14:02 15:54 WBC RBC Hgb Hct MCV MCH MCHC RDW Plt Count MPV Absolute Neuts (auto) Neutrophils % Neutrophils % (Manual) Band Neutrophils % Lymphocytes % Lymphocytes % (Manual) Monocytes % Monocytes % (Manual) Eosinophils % Eosinophils % (Manual) Basophils % Basophils % (Manual) Myelocytes % (Man) Promyelocytes % (Man) Blast Cells % (Manual) Nucleated RBC % Metamyelocytes Hypochromia Platelet Estimate Polychromasia Poikilocytosis Anisocytosis Microcytosis Macrocytosis Ovalocytes PT with INR INR Sodium Potassium Chloride Carbon Dioxide Anion Gap BUN Creatinine Est GFR (CKD-EPI)AfAm Est GFR (CKD-EPI)NonAf Random Glucose Calcium Iron TIBC Iron Saturation Unsaturated IBC Ferritin Total Bilirubin AST ALT Alkaline Phosphatase Troponin I 2.01 H* Total Protein Albumin Vitamin B12 Serum Folate Stool Occult Blood Negative Blood Type A POSITIVE Antibody Screen Negative Crossmatch See Detail 10/14/19 18:30 WBC RBC Hgb Hct MCV MCH MCHC RDW Plt Count MPV Absolute Neuts (auto) Neutrophils % Neutrophils % (Manual) Band Neutrophils % Lymphocytes % Lymphocytes % (Manual) Monocytes % Monocytes % (Manual) Eosinophils % Eosinophils % (Manual) Basophils % Basophils % (Manual) Myelocytes % (Man) Promyelocytes % (Man) Blast Cells % (Manual) Nucleated RBC % Metamyelocytes Hypochromia Platelet Estimate Polychromasia Poikilocytosis Anisocytosis Microcytosis Macrocytosis Ovalocytes PT with INR INR Sodium Potassium Chloride Carbon Dioxide Anion Gap BUN Creatinine Est GFR (CKD-EPI)AfAm Est GFR (CKD-EPI)NonAf Random Glucose Calcium Iron 184 H TIBC 206 L Iron Saturation 89 H Unsaturated IBC 22 L Ferritin 805.4 H Total Bilirubin AST ALT Alkaline Phosphatase Troponin I 1.61 H* Total Protein Albumin Vitamin B12 1717 H Serum Folate 33 H Stool Occult Blood Blood Type Antibody Screen Crossmatch Current Medications Generic Name Dose Route Start Last Admin Trade Name Freq PRN Reason Stop Dose Admin Apixaban 5 mg 10/14/19 22:00 Eliquis - PO BID IAN Aspirin 81 mg 10/15/19 10:00 Ecotrin - PO DAILY IAN Atorvastatin Calcium 10 mg 10/14/19 22:00 Lipitor - PO HS IAN Folic Acid 1 mg 10/15/19 10:00 Folic Acid - PO DAILY IAN Insulin Aspart 1 vial 10/14/19 22:00 Novolog Vial Sliding Scale - SQ ACHS IAN Protocol Insulin Detemir 25 units 10/14/19 22:00 Levemir Vial SQ HS IAN Insulin Detemir 35 units 10/15/19 07:00 Levemir Vial SQ AM IAN Metoprolol Succinate 100 mg 10/15/19 10:00 Toprol Xl - PO DAILY IAN [id number] Ethyl Esters 1 gm 10/14/19 22:00 Lovaza - PO BID IAN Pantoprazole Sodium 40 mg 10/15/19 10:00 Protonix - PO DAILY IAN Ranolazine 1,000 mg 10/14/19 22:00 Ranexa - PO BID IAN A/P: 74 y/o M with PMH CAD s/p PPM ([facility]; [place] [employer], [employer]), diastolic CHF, aflutter (eliquis), IDDM, CKD, who presents to ED with symptomatic anemia. Chronic normocytic anemia Likely 2/2 MDS as all cell lines are decreased, ferritin high, B12 high, folate high which is likely due to multiple past transfusions, hold all iron/b12/ folate products. Will obtain collateral from outside Junior Administrative Assistant from [facility]. Transfuse 1 unit pRBC to achieve Hgb >8.0 Gentle IVF as patient appears clinically dry CAD s/p PPM c/w asa, ranexa transfuse for Hgb >8 Troponemia likely due to demand ischemia, now trending down, pt. asymptomatic Diastolic CHF Hold diuretics, gentle hydration, follow renal function c/w metoprolol for rate control Atrial flutter c/w eliquis for AC no signs of bleeding currently BB for rate control IDDM c/w lev 25u sq HS, 35u AM ISS, BGM ACHS FEN IV NS 500 cc bolus now Trend BMP Renal/DM diet PPX: Eliquis
[2019-10-14] MEDS ORDERED: INSULIN SLIDING SCALE (NOVOLOG) 1 VIAL SQ SCH (22:00)
[2019-10-14] MEDS ORDERED: APIXABAN 5 MG TABLET ONE (22:20)
[2019-10-14] MEDS ORDERED: ATORVASTATIN CA 10 MG TABLET (FP) ONE (22:20)
[2019-10-14] MEDS: ATORVASTATIN CA 10 MG TABLET (FP) PO SCH (22:26)
[2019-10-14] MEDS: APIXABAN 5 MG TABLET PO SCH (22:26)
[2019-10-14] MEDS: INSULIN (LEVEMIR) 100 UNITS/ML UNITS SQ SCH (22:35)
--- NOTE | 2019-10-14 23:24 | CONSULT ---
Consult Consult Specialty:: Endocrine Referred by:: dr.Joseph Hancock Reason for Consultation:: dm t2 - History of Present Illness Chief Complaint: pain in left shoulder and high sugars History of Present Illness: 74 y/o M with PMH DMT2,Neuropathy,HLD,HTN,CAD s/p PPM ([facility]; [employer], [employer]), diastolic CHF, aflutter (eliquis), CKD, who presented with dyspnea on exertion,shoulder pain,difficulty using left arm,has weakness and not improving in sugar control despite taking mor insulin.denies fever cough,or vomiting. - Past Medical History Cardio/Vascular: Yes: CAD, CHF, HTN, Hyperlipdemia, [place], Pulmonary Hypertension, Other Pulmonary: Yes: COPD, O2 Dependent, Sleep Apnea Gastrointestinal: Yes: Constipation, Peptic Ulcer Disease (remotely) Hepatobiliary: Yes: Cholelithiasis, Other (fatty liver) Renal/: Yes: Renal Inusuff Infectious Disease: Yes: Other (meningitis as an infant) Musculoskeletal: Yes: Osteoarthritis - Past Surgical History Past Surgical History: Yes: CABG, Colonoscopy, Permanent Pacemaker, Stent ( coronary stents 2009) - Alcohol/Substance Use Hx Alcohol Use: No History of Substance Use: reports: None - Smoking History Smoking history: Never smoked Have you smoked in the past 12 months: No If you are a former smoker, when did you quit?: 15 YRS - Social History Usual Living Arrangement: With Child ADL: Support Services 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 History of Recent Travel: No Home Medications - Allergies Allergies/Adverse Reactions: Allergies Allergy/AdvReac Type Severity Reaction Status Date / Time No Known Allergies Allergy Verified 10/14/19 10:17 - Home Medications Home Medications: Ambulatory Orders Aspirin [Aspirin EC] 81 mg PO DAILY 09/12/17 Folic Acid 1 mg PO DAILY 09/13/17 Atorvastatin Calcium [Lipitor] 10 mg PO DAILY 01/25/19 Ranolazine [Ranexa -] 1,000 mg PO BID tab 02/01/19 Pantoprazole Sodium [Protonix -] 40 mg PO DAILY tablet.ec 02/16/19 Icosapent Ethyl [Vascepa] 1 gm PO BID 02/27/19 Acetaminophen [Tylenol .Regular Strength -] 650 mg PO Q6H PRN tablet 03/08/19 Apixaban [Eliquis -] 2.5 mg PO BID tablet 03/08/19 Furosemide [Lasix -] 40 mg PO DAILY tablet 03/08/19 Insulin (Levemir) [Levemir Vial] 25 units SQ HS #100 units 03/08/19 Insulin (Levemir) [Levemir Vial] 35 units SQ AM #100 units 03/08/19 Insulin Sliding Scale [Novolog Vial Sliding Scale -] 1 vial SQ ACHS #0 units Metoprolol Succinate [Toprol XL -] 100 mg PO DAILY tab.sr.24h 03/08/19 Review of Systems - Review of Systems Constitutional: reports: Lethargy Eyes: reports: Blurred Vision HENT: reports: No Symptoms Neck: reports: No Symptoms Cardiovascular: reports: Shortness of Breath Respiratory: reports: Exercise Intolerance, SOB on Exertion Gastrointestinal: reports: Bloating, Nausea Genitourinary: reports: No Symptoms Musculoskeletal: reports: No Symptoms, Joint Pain Integumentary: reports: No Symptoms Neurological: reports: Numbness, Weakness Physical Exam Vital Signs: Vital Signs Temperature 97.8 F 10/14/19 10:14 Pulse Rate 105 H 10/14/19 22:02 Respiratory Rate 21 H 10/14/19 22:02 Blood Pressure 122/69 10/14/19 22:02 O2 Sat by Pulse Oximetry (%) 98 10/14/19 22:02 Constitutional: Yes: Anxious Eyes: Yes: EOM Intact HENT: Yes: Normocephalic Neck: Yes: Trachea Midline Cardiovascular: Yes: Regular Rate and Rhythm Respiratory: Yes: CTA Bilaterally Gastrointestinal: Yes: Normal Bowel Sounds ...Rectal Exam: Yes: Deferred Renal/: Yes: WNL Musculoskeletal: Yes: Joint Swelling, Muscle Pain, Muscle Weakness Extremities: Yes: WNL Edema: No Integumentary: Yes: WNL Neurological: Yes: Alert, Oriented ...Motor Strength: WNL Psychiatric: Yes: Alert, Oriented Labs: CBC, BMP 10/14/19 14:02 10/14/19 14:02 Problem List - Problems (1) Type 2 diabetes mellitus with other diabetic kidney complication Problems reviewed: Yes Code(s): E11.29 - TYPE 2 DIABETES MELLITUS W OTH DIABETIC KIDNEY COMPLICATION (2) (HFpEF) heart failure with preserved ejection fraction Problems reviewed: Yes Code(s): I50.30 - UNSPECIFIED DIASTOLIC (CONGESTIVE) HEART FAILURE (3) Abnormal liver function test Problems reviewed: Yes Code(s): R94.5 - ABNORMAL RESULTS OF LIVER FUNCTION STUDIES (4) Acute on chronic diastolic (congestive) heart failure Problems reviewed: Yes Code(s): I50.33 - ACUTE ON CHRONIC DIASTOLIC (CONGESTIVE) HEART FAILURE (5) Atrial fibrillation with RVR Code(s): I48.91 - UNSPECIFIED ATRIAL FIBRILLATION (6) Atrial flutter Problems reviewed: Yes Code(s): I48.92 - UNSPECIFIED ATRIAL FLUTTER Qualifiers: Atrial flutter type: unspecified Qualified Code(s): I48.92 - Unspecified atrial flutter (7) Diabetes mellitus with hyperosmolarity Problems reviewed: Yes Code(s): E11.00 - TYPE 2 DIAB W HYPROSM W/O NONKET HYPRGLY-HYPROS COMA ([facility]) Assessment/Plan Current Active Problems Anemia (Acute) Elevated troponin (Acute) DMT2,ckd htn hld, cad,sp pacemaker hld diabetic neupopathy diabetic nephropathy Abnormal Lab Results 10/14/19 10/14/19 10/14/19 14:02 14:02 14:02 RBC 1.99 L Hgb 6.5 L* Hct 19.7 L D MCV 99.0 H RDW 32.1 H Plt Count 132 L Myelocytes % (Man) 7 H D Nucleated RBC % 1 H PT with INR 17.30 H INR 1.46 H Sodium 132 L Chloride 97 L BUN 33.9 H Creatinine 1.9 H Random Glucose 279 H Iron TIBC Iron Saturation Unsaturated IBC Ferritin Troponin I Vitamin B12 Serum Folate Crossmatch 10/14/19 10/14/19 10/14/19 14:02 14:02 18:30 RBC Hgb Hct MCV RDW Plt Count Myelocytes % (Man) Nucleated RBC % PT with INR INR Sodium Chloride BUN Creatinine Random Glucose Iron 184 H TIBC 206 L Iron Saturation 89 H Unsaturated IBC 22 L Ferritin 805.4 H Troponin I 2.01 H* 1.61 H* Vitamin B12 1717 H Serum Folate 33 H Crossmatch See Detail plan: bgm qid novolog scale levemir bid doses hba1c start levemir 25units hs levemir 35 units am nutrition consult
[2019-10-15] MEDS: RANOLAZINE E.R. 1,000 MG TABLET (FP) PO SCH ×3 (00:32→21:26)
[2019-10-15] MEDS: OMEGA-3 ACID ETHYL ESTERS (FATTY-ACIDS) 1 GM CAPSULE (FP) PO SCH ×3 (00:35→21:29)
[2019-10-15 00:57] VITALS: BMI 32.2
[2019-10-15 06:32] LABS: BASO % 0.5 % (0-2.0); EOS % 0.6 % (0-4.5); HEMATOCRIT 20.4 % (35.4-49); LYMPH % 13.3 % (8-40); MCH 32.6 pg (25.7-33.7); MCHC 33.8 g/dl (32.0-35.9); MEAN CELL VOLUME 96.4 fl (80-96); MEAN PLT VOLUME 9.1 fl (7.5-11.1); MONO % 9.9 % (3.8-10.2); NEUT % 75.7 % (42.8-82.8); PLATELET COUNT 118 K/MM3 (134-434); RBC 2.11 M/mm3 (4.00-5.60); RDW 29.4 % (11.9-15.9); WHITE BLOOD COUNT 7.4 K/mm3 (4.0-10.0)
[2019-10-15 06:46] LABS: HEMOGLOBIN 6.9 GM/dL (11.7-16.9)
[2019-10-15] MEDS: INSULIN SLIDING SCALE (NOVOLOG) 1 VIAL SQ SCH ×4 (06:47→21:28)
[2019-10-15] MEDS: INSULIN (LEVEMIR) 100 UNITS/ML UNITS SQ SCH ×2 (06:48→21:26)
[2019-10-15 06:50] LABS: BLOOD UREA NITROGEN 33.8 mg/dL (7-18); CALCIUM 8.9 mg/dL (8.5-10.1); CREATININE 1.8 mg/dL (0.55-1.3); PHOSPHOROUS 3.5 mg/dL (2.5-4.9); POTASSIUM 4.4 mmol/L (3.5-5.1)
[2019-10-15] MEDS ORDERED: PT OWN MED DRAWER 7, Y5N ONE ×3 (08:45→21:24)
[2019-10-15] MEDS: PANTOPRAZOLE 40 MG TABLET (FP) PO SCH (09:10)
[2019-10-15] MEDS: ASPIRIN COATED 81 MG TABLET.EC PO SCH (09:10)
[2019-10-15] MEDS: FOLIC ACID 1 MG TABLET (FP) PO SCH (09:10)
[2019-10-15] MEDS: APIXABAN 5 MG TABLET PO SCH ×2 (09:11→21:26)
--- NOTE | 2019-10-15 10:19 | EKG ---
Test Reason : Blood Pressure : / mmHG Vent. Rate : 086 BPM Atrial Rate : 086 BPM P-R Int : 222 ms QRS Dur : 104 ms QT Int : 376 ms P-R-T Axes : 000 037 130 degrees QTc Int : 449 ms SINUS RHYTHM WITH 1ST DEGREE A-V BLOCK WITH PREMATURE ATRIAL COMPLEXES T WAVE ABNORMALITY, CONSIDER LATERAL ISCHEMIA ABNORMAL ECG WHEN COMPARED WITH ECG OF 04-MAR-2019 03:30, PREMATURE ATRIAL COMPLEXES ARE NOW PRESENT INVERTED T WAVES HAVE REPLACED NONSPECIFIC T WAVE ABNORMALITY IN LATERAL LEADS Confirmed by MD Aj, Blake ([id number]) on 10/15/2019 10:19:23 AM Referred By: Confirmed By:Blake Rocha MD
--- NOTE | 2019-10-15 10:27 | EKG ---
Test Reason : Blood Pressure : / mmHG Vent. Rate : 101 BPM Atrial Rate : 101 BPM P-R Int : 216 ms QRS Dur : 106 ms QT Int : 370 ms P-R-T Axes : 055 043 123 degrees QTc Int : 479 ms SINUS TACHYCARDIA WITH 1ST DEGREE A-V BLOCK POSSIBLE ANTERIOR INFARCT , AGE UNDETERMINED ABNORMAL ECG WHEN COMPARED WITH ECG OF 14-OCT-2019 11:57, PREMATURE ATRIAL COMPLEXES ARE NO LONGER PRESENT Confirmed by MD Aj, Blake ([id number]) on 10/15/2019 10:26:54 AM Referred By: Confirmed By:Blake Rocha MD
--- NOTE | 2019-10-15 10:43 | PN ---
Progress Note (short form) - Note Progress Note: Hospitalist Medicine Sitting up comfortably, eating breakfast. States that he feels better. To receive 2nd unit PRBC Vitals 10/15/19 10/15/19 06:50 09:00 Temperature 98.7 F Pulse Rate 94 H Respiratory 18 20 Rate Respiratory Non-Labored Effort Blood Pressure 106/56 L O2 Sat by Pulse 99 Oximetry (%) Physical Exam general: sitting on edge of bed, about to eat breakfast HEENT: NCAT, +conjunctival pallor. neck: supple, no JVD cardio: S1, S2 RRR. no r/m/g pulm: +few crackles on R>L. 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 qtc 449ms CXR: official read mentions infiltrate, however pt asymptomatic. no effusions Assessment/Plan 74 y/o M with PMH CAD s/p PPM ([facility]; [place], [employer]), diastolic CHF, aflutter (eliquis), IDDM, CKD, who presents for low Hb. #Normocytic anemia -possible 2/2 CKD, MDS -iron studies, FOBT, b12, folate WNL -s/p 1 u prbc. 2nd unit ordered, f/u post-transfusion CBC -transfusion threshold to Hb>8; as with cardiac hx -can still c/w asa, eliquis as no overt signs of bleeding -will need to call PMD, heme/onc at [facility] for additional info -Heme/onc: Dr. Torres #CAD s/p PPM -c/w asa, ranexa #Diastolic CHF -restarted lasix for tomorrow. lasix 20mg IVP x 1 now as w/ SOB -had recent ECHO 02/2019; LVSF normal, mod TR, MR -wts, na control 2g, strict i/o -not in exacerbation -c/w metoprolol for rate control -Cardio: Dr. Mackenzie #tropinemia - improved -likely chronic, may partially be demand -trending down. will not c/t follow #hx flutter -c/w eliquis #IDDM -c/w lev 25u sq HS, 35u AM -ISS, BGM ACHS #F/E/N does not require IVF at this time continue to follow lytes na controlled diet #PPX on eliquis, may continue as without signs of overt bleeding #Dispo monitoring on tele to receive 2nd unit PRBCs
[2019-10-15 10:50] LABS: ANISOCYTOSIS 1+; MACROCYTOSIS 1+; OVALOCYTE 1+; PLATELET ESTIMATE DECREASED
[2019-10-15] MEDS ORDERED: FUROSEMIDE 40 MG/4 ML INJECTABLE VIAL IVPUSH ONE (13:15)
[2019-10-15 13:39] LABS: BASO % 0.3 % (0-2.0); EOS % 0.6 % (0-4.5); HEMATOCRIT 24.3 % (35.4-49); MCH 32.1 pg (25.7-33.7); MCHC 33.1 g/dl (32.0-35.9); MEAN CELL VOLUME 96.9 fl (80-96); MEAN PLT VOLUME 9.1 fl (7.5-11.1); MONO % 10.3 % (3.8-10.2); NEUT % 73.8 % (42.8-82.8); PLATELET COUNT 119 K/MM3 (134-434); RBC 2.51 M/mm3 (4.00-5.60); RDW 27.6 % (11.9-15.9); WHITE BLOOD COUNT 8.5 K/mm3 (4.0-10.0)
[2019-10-15] MEDS ORDERED: TRIMETHOBENZAMIDE HCL 200MG/2ML INJ IM ONE (18:39)
--- NOTE | 2019-10-15 19:38 | CON.CARD ---
Consult Consult Specialty:: cardiology Reason for Consultation:: elevated TNI; CHF - History of Present Illness Chief Complaint: Pt A&Ox3; no chest pain or dyspnea History of Present Illness: 74yo M wih PMH of CAD: CABG, coronary stents, ?NSTEMI 02/2019, s/p pacemaker/ AICD, COPD, diastolic CHF, Aflutter (on eliquis), DM, obesity, JARET, CKD,? myelodysplastic syndrome/anemia, presented now with abnormal lab value. Son is at the bedside providing collateral history. He reports that patient received a call regarding a low hemoglobin level. Patient has been transfused in the past for low hemoglobin, though they are not sure why his levels are so low (?hx myelodysplastic syndrome). No melena, hematochezia, or hematemesis. Complains of weakness and sluggishness for the past week or so. Patient feels very short of breath after exerting himself but this is at baseline. Has felt some mild chest pain for the past two or three days. No easy bleeding or bruising. No fevers or chills. PCP: Dr. Mace Cardiology: Dr. Maddox - History Source History Provided By: Patient, Family Member (son), Medical Record Limitations to Obtaining History: Poor Historian - Past Medical History Cardio/Vascular: Yes: CAD, CHF (diastolic), HTN, Hyperlipdemia, [place], Pulmonary Hypertension, Other Pulmonary: Yes: COPD, O2 Dependent, Sleep Apnea Gastrointestinal: Yes: Constipation, Peptic Ulcer Disease (remotely) Hepatobiliary: Yes: Cholelithiasis, Other (fatty liver) Renal/: Yes: Renal Inusuff Infectious Disease: Yes: Other (meningitis as an infant) Musculoskeletal: Yes: Osteoarthritis - Past Surgical History Past Surgical History: Yes: CABG, Colonoscopy, Permanent Pacemaker, Stent ( coronary stents 2009) - Alcohol/Substance Use Hx Alcohol Use: No History of Substance Use: reports: None - Smoking History Smoking history: Former smoker Have you smoked in the past 12 months: No If you are a former smoker, when did you quit?: 15 YRS - Social History Usual Living Arrangement: With Child ADL: Support Services 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 History of Recent Travel: No Home Medications - Allergies Allergies/Adverse Reactions: Allergies Allergy/AdvReac Type Severity Reaction Status Date / Time No Known Allergies Allergy Verified 10/14/19 10:17 - Home Medications Home Medications: Ambulatory Orders Aspirin [Aspirin EC] 81 mg PO DAILY 09/12/17 Folic Acid 1 mg PO DAILY 09/13/17 Atorvastatin Calcium [Lipitor] 10 mg PO DAILY 01/25/19 Ranolazine [Ranexa -] 1,000 mg PO BID tab 02/01/19 Pantoprazole Sodium [Protonix -] 40 mg PO DAILY tablet.ec 02/16/19 Icosapent Ethyl [Vascepa] 1 gm PO BID 02/27/19 Acetaminophen [Tylenol .Regular Strength -] 650 mg PO Q6H PRN tablet 03/08/19 Apixaban [Eliquis -] 2.5 mg PO BID tablet 03/08/19 Furosemide [Lasix -] 40 mg PO DAILY tablet 03/08/19 Insulin (Levemir) [Levemir Vial] 25 units SQ HS #100 units 03/08/19 Insulin (Levemir) [Levemir Vial] 35 units SQ AM #100 units 03/08/19 Insulin Sliding Scale [Novolog Vial Sliding Scale -] 1 vial SQ ACHS #0 units Metoprolol Succinate [Toprol XL -] 100 mg PO DAILY tab.sr.24h 03/08/19 - Risk Factors Known Risk Factors: Yes: Age, Diabetes Mellitus, Gender, Hypercholesterolemia, Hypertension, Physical Inactivity, Other (CAD; diastooic CHF) Vital Signs: Vital Signs Temperature 98.2 F 10/15/19 17:00 Pulse Rate 104 H 10/15/19 17:00 Respiratory Rate 17 10/15/19 17:00 Blood Pressure 113/57 L 10/15/19 17:00 O2 Sat by Pulse Oximetry (%) 99 10/15/19 09:00 Constitutional: Yes: No Distress, Obese Eyes: Yes: WNL HENT: Yes: WNL Neck: Yes: WNL - Other Data Labs, Other Data: CBC, BMP 10/15/19 13:10 10/15/19 05:45 INR, PTT INR 1.46 (0.83-1.09) H 10/14/19 14:02 Troponin, BNP 10/14/19 18:30 Troponin I 1.61 H* Troponin, BNP 10/14/19 18:30 Troponin I 1.61 H* Problem List - Problems (1) Anemia Assessment/Plan: For PRBCs; f/u with hem/onc. Code(s): D64.9 - ANEMIA, UNSPECIFIED Qualifiers: Anemia type: unspecified type Qualified Code(s): D64.9 - Anemia, unspecified (2) Elevated troponin Assessment/Plan: 2.1-->1.6; chronic; as high as 3.3 in Feb, 2019.. EKG: no significant change from February. Code(s): R74.8 - ABNORMAL LEVELS OF OTHER SERUM ENZYMES (3) (HFpEF) heart failure with preserved ejection fraction Assessment/Plan: on metoprolol, furosemide. CXR: mild CHF, improved from 03/03 Add ACEI (CHF; HTN; DM); f/u BUN/Cr, electroltyes, Is and Os, daily weight. Code(s): I50.30 - UNSPECIFIED DIASTOLIC (CONGESTIVE) HEART FAILURE (4) Atrial fibrillation Assessment/Plan: On metoprolol ER for HR control. On apixaban for anticoagulation. Code(s): I48.91 - UNSPECIFIED ATRIAL FIBRILLATION (5) CAD (coronary artery disease) Assessment/Plan: On ASA. On atorvasatin; f/u lipid profile. Code(s): I25.10 - ATHSCL HEART DISEASE OF [place] CORONARY ARTERY W/O ANG PCTRS (6) Cardiac defibrillator in place Assessment/Plan: ICD battery change 07/2019. Code(s): Z95.810 - PRESENCE OF AUTOMATIC (IMPLANTABLE) CARDIAC DEFIBRILLATOR (7) HTN (hypertension) Code(s): I10 - ESSENTIAL (PRIMARY) HYPERTENSION Qualifiers: Hypertension type: essential hypertension Qualified Code(s): I10 - Essential (primary) hypertension (8) History of heart artery stent Code(s): Z95.5 - PRESENCE OF CORONARY ANGIOPLASTY IMPLANT AND GRAFT (9) Hx of CABG Code(s): Z95.1 - PRESENCE OF AORTOCORONARY BYPASS GRAFT (10) Hypercholesterolemia Assessment/Plan: on atorvastatin. F/u lipid profile. Code(s): E78.00 - PURE HYPERCHOLESTEROLEMIA, UNSPECIFIED (11) MDS (myelodysplastic syndrome) Assessment/Plan: f/u with hem/onc. PRBCs are again required. Code(s): D46.9 - MYELODYSPLASTIC SYNDROME, UNSPECIFIED (12) CKD (chronic kidney disease) Code(s): N18.9 - CHRONIC KIDNEY DISEASE, UNSPECIFIED
[2019-10-15] MEDS: ATORVASTATIN CA 10 MG TABLET (FP) PO SCH (21:26)
[2019-10-16] MEDS: INSULIN SLIDING SCALE (NOVOLOG) 1 VIAL SQ SCH ×4 (06:22→21:10)
[2019-10-16 06:25] LABS: BASO % 0.2 % (0-2.0); EOS % 1.1 % (0-4.5); HEMATOCRIT 24.2 % (35.4-49); HEMOGLOBIN 8.1 GM/dL (11.7-16.9); LYMPH % 16.2 % (8-40); MCH 31.8 pg (25.7-33.7); MCHC 33.5 g/dl (32.0-35.9); MEAN PLT VOLUME 8.4 fl (7.5-11.1); MONO % 11.9 % (3.8-10.2); NEUT % 70.6 % (42.8-82.8); PLATELET COUNT 126 K/MM3 (134-434); RBC 2.55 M/mm3 (4.00-5.60); RDW 26.7 % (11.9-15.9); WHITE BLOOD COUNT 7.5 K/mm3 (4.0-10.0)
[2019-10-16] MEDS: INSULIN (LEVEMIR) 100 UNITS/ML UNITS SQ SCH ×2 (06:43→21:10)
[2019-10-16 06:45] LABS: CALCIUM 9.2 mg/dL (8.5-10.1); CREATININE 1.6 mg/dL (0.55-1.3); MAGNESIUM 2.3 mg/dL (1.8-2.4); PHOSPHOROUS 4.3 mg/dL (2.5-4.9); POTASSIUM 4.1 mmol/L (3.5-5.1)
[2019-10-16] MEDS: FOLIC ACID 1 MG TABLET (FP) PO SCH (09:57)
[2019-10-16] MEDS: ASPIRIN COATED 81 MG TABLET.EC PO SCH (09:57)
[2019-10-16] MEDS: RANOLAZINE E.R. 1,000 MG TABLET (FP) PO SCH ×2 (09:57→21:09)
[2019-10-16] MEDS: APIXABAN 5 MG TABLET PO SCH ×2 (09:57→21:09)
[2019-10-16] MEDS: OMEGA-3 ACID ETHYL ESTERS (FATTY-ACIDS) 1 GM CAPSULE (FP) PO SCH ×2 (09:58→21:09)
[2019-10-16] MEDS: FUROSEMIDE 40 MG TABLET (FP) PO SCH (09:58)
[2019-10-16] MEDS: PANTOPRAZOLE 40 MG TABLET (FP) PO SCH (09:58)
[2019-10-16 10:05] LABS: ANISOCYTOSIS 3+; MACROCYTOSIS 0; PLATELET ESTIMATE DECREASED; ROULEAU 1+
[2019-10-16] MEDS ORDERED: INSULIN SLIDING SCALE (NOVOLOG) 1 VIAL SQ ONE (11:11)
--- NOTE | 2019-10-16 11:12 | PN ---
Progress Note (short form) - Note Progress Note: This patient is 74 years old male admitted for anemia of hemoglobin 6.7. He received 2 units of blood and hemoglobin is above 8 now. He said he has a history of anemia always and he follow-up with some supply chain analyst at [facility]. Today he denies any bleeding any shortness of breath fever chills. Vital Signs Period Temp Pulse Resp BP Sys/Renteria Pulse Ox Last 24 Hr 97.5 F-99.3 F 96-104 16-21 104-115/44-59 97-98 Physical examination general: sitting on edge of bed, about to eat breakfast HEENT: NCAT, +conjunctival pallor. neck: supple, no JVD cardio: S1, S2 RRR. no r/m/g pulm: +few crackles on R>L. 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 We already have requested hematology consult by Dr. Torres. In the hospital stool test is also negative for occult blood. Congestive heart failure he is already on Lasix [address] Perez telemetry he is already seeing him Atrial flutter and fibrillation he is taking Eliquis and also metoprolol Type 2 diabetes which is insulin-dependent the hospitalist team has called endocrine consult by Dr. Major with and patient is on insulin sugar is in fair control at this time Patient is ambulatory and is eating well. Current Medications Apixaban (Eliquis -) 5 mg PO BID [facility] Last Admin: 10/16/19 09:57 Dose: 5 mg Aspirin (Ecotrin -) 81 mg PO DAILY [facility] Last Admin: 10/16/19 09:57 Dose: 81 mg Atorvastatin Calcium (Lipitor -) 10 mg PO HS [facility] Last Admin: 10/15/19 21:26 Dose: 10 mg Folic Acid (Folic Acid -) 1 mg PO DAILY [facility] Last Admin: 10/16/19 09:57 Dose: 1 mg Furosemide (Lasix -) 40 mg PO DAILY [facility] Last Admin: 10/16/19 09:58 Dose: 40 mg Insulin Aspart (Novolog Vial Sliding Scale -) 1 vial SQ ACHS [facility]; Protocol Last Admin: 10/16/19 06:22 Dose: Not Given Insulin Detemir (Levemir Vial) 25 units SQ HS [facility] Last Admin: 10/15/19 21:26 Dose: 25 units Insulin Detemir (Levemir Vial) 35 units SQ AM [facility] Last Admin: 10/16/19 06:43 Dose: 35 units Metoprolol Succinate (Toprol Xl -) 100 mg PO DAILY [facility] Last Admin: 10/16/19 09:57 Dose: 100 mg [id number] Ethyl Esters (Lovaza -) 1 gm PO BID [facility] Last Admin: 10/16/19 09:58 Dose: 1 gm Pantoprazole Sodium (Protonix -) 40 mg PO DAILY [facility] Last Admin: 10/16/19 09:58 Dose: 40 mg Ranolazine (Ranexa -) 1,000 mg PO BID [facility] Last Admin: 10/16/19 09:57 Dose: 1,000 mg Visit type - Emergency Visit Emergency Visit: Yes ED Registration Date: 10/14/19 Care time: The patient presented to the Emergency Department on the above date and was hospitalized for further evaluation of their emergent condition. - New Patient This patient is new to me today: Yes Date on this admission: 10/16/19 - Critical Care Critical Care patient: No - Discharge Referral Referred to [facility] No
--- NOTE | 2019-10-16 13:18 | PN ---
Progress Note (short form) - Note Progress Note: Coverage for Dr. Amee Mackenzie Chief Complaint: Events noted, notes reviewed, History of Present Illness: Seen and examined on telemetry. - Current Medication List Current Medications Apixaban (Eliquis -) 5 mg PO BID [facility] Last Admin: 10/16/19 09:57 Dose: 5 mg Aspirin (Ecotrin -) 81 mg PO DAILY [facility] Last Admin: 10/16/19 09:57 Dose: 81 mg Atorvastatin Calcium (Lipitor -) 10 mg PO HS [facility] Last Admin: 10/15/19 21:26 Dose: 10 mg Folic Acid (Folic Acid -) 1 mg PO DAILY [facility] Last Admin: 10/16/19 09:57 Dose: 1 mg Furosemide (Lasix -) 40 mg PO DAILY [facility] Last Admin: 10/16/19 09:58 Dose: 40 mg Insulin Aspart (Novolog Vial Sliding Scale -) 1 vial SQ [facility]; Protocol Last Admin: 10/16/19 11:15 Dose: 6 units Insulin Detemir (Levemir Vial) 25 units SQ HS [facility] Last Admin: 10/15/19 21:26 Dose: 25 units Insulin Detemir (Levemir Vial) 35 units SQ AM [facility] Last Admin: 10/16/19 06:43 Dose: 35 units Metoprolol Succinate (Toprol Xl -) 100 mg PO DAILY [facility] Last Admin: 10/16/19 09:57 Dose: 100 mg [id number] Ethyl Esters (Lovaza -) 1 gm PO BID [facility] Last Admin: 10/16/19 09:58 Dose: 1 gm Pantoprazole Sodium (Protonix -) 40 mg PO DAILY [facility] Last Admin: 10/16/19 09:58 Dose: 40 mg Ranolazine (Ranexa -) 1,000 mg PO BID [facility] Last Admin: 10/16/19 09:57 Dose: 1,000 mg Review of Systems - Review of Systems Constitutional: no symptoms reported Respiratory: denies Cough or Sputum Production Cardiovascular: as noted above Gastrointestinal: denies Nausea, Vomiting, Diarrhea, Constipation reports Abdominal Pain Genitourinary: no symptoms reported Musculoskeletal: no symptoms reported Endocrine: no symptoms reported - Objective Vital Signs: Last Vital Signs Temp Pulse Resp BP Pulse Ox 98.1 F 98 H 18 115/53 L 98 10/16/19 08:51 10/16/19 08:51 10/16/19 09:00 10/16/19 08:51 10/16/19 09:00 Intake & Output 10/13/19 10/14/19 10/15/19 10/16/19 23:59 23:59 23:59 23:59 Intake Total 2860 Output Total 3500 1100 Balance -640 -1100 Weight 209 lb 218 lb 2 oz 212 lb 3.2 oz Neck: Supple Negative JVD No Bruit Cardiovascular: S1 S2 Regular Rate and Rhythm Respiratory: clear to A&P Gastrointestinal: Soft Benign Normal Bowel Sounds Extremities: Negative edema Labs: CBC, BMP 10/16/19 05:43 10/16/19 05:43 Hepatic Panel Total Bilirubin 1.0 mg/dL (0.2-1) 10/14/19 14:02 AST 16 U/L (15-37) 10/14/19 14:02 ALT 19 U/L (13-61) 10/14/19 14:02 Alkaline Phosphatase 51 U/L (45-117) 10/14/19 14:02 Albumin 4.0 g/dl (3.4-5.0) 10/14/19 14:02 INR, PTT INR 1.46 (0.83-1.09) H 10/14/19 14:02 Assessment/Plan ASSESSMENT: 1. Anemia related to myelodysplastic syndrome post transfusion 2. Coronary artery disease post CABG/PCI/stent evidence of chronic demand ischemia/chronic troponin I level elevation angina pectoris 3. Diastolic left ventricular dysfunction with clinical class 0-I [place] [employer] classification left ventricular failure, currently compensated /euvolemic 4. Post prophylactic ICD implantation/single chamber- patient not known to me/ unclear if initial indication was dilated cardiomyopathy which clinically resolved 5. Paroxysmal atrial fibrillation/flutter [id number] score of 5 on chronic anticoagulation therapy with DOAc's/Eliquis 6. Hypertensive cardiovascular disease 7. Diabetes mellitus 8. Hypercholesterolemia 9. Chronic obstructive pulmonary disease 10. Chronic kidney disease PLAN: 1. Continue DOAC's/Eliquis at the above-noted dosage/5 mg twice daily (age less than 80 years and weight greater than 60 kg) with caution considering the above- noted anemia 2. Continue Ecotrin therapy with caution considering the above-noted anemia- eventually therapy may need to be discontinued 3. Continue Toprol-XL 4. Continue Ranexa 5. Continue Lipitor and Lovaza therapies 6. Continue Lasix therapy 7. No additional cardiovascular intervention is indicated at this point other than medical therapy optimization Melany Freeman MD
--- NOTE | 2019-10-16 18:28 | CONSULT ---
Consult - text type - Consultation Consultation Note: 74 y/o M with PMH DMT2,Neuropathy,HLD,HTN,CAD s/p PPM ([facility]; [employer], [employer]), diastolic CHF, aflutter (eliquis), CKD, who presented with dyspnea on exertion,shoulder pain. He presents to the ED for abnormal outpatient labs patient complaining of fatigue outpatient abnormalities was a low hemoglobin He has low risk MDS --was last seen at [facility] by Dr. Simpson in 02/01 Had been on revlimid Prior to that had been on eltrombopag - Past Medical History Cardio/Vascular: Yes: CAD, CHF, HTN, Hyperlipdemia, [place], Pulmonary Hypertension, Other Pulmonary: Yes: COPD, O2 Dependent, Sleep Apnea Gastrointestinal: Yes: Constipation, Peptic Ulcer Disease (remotely) Hepatobiliary: Yes: Cholelithiasis, Other (fatty liver) Renal/: Yes: Renal Inusuff Infectious Disease: Yes: Other (meningitis as an infant) Musculoskeletal: Yes: Osteoarthritis - Past Surgical History Past Surgical History: Yes: CABG, Colonoscopy, Permanent Pacemaker, Stent ( coronary stents 2009) - Smoking History Smoking history: Never smoked If you are a former smoker, when did you quit?: 15 YRS - Social History Usual Living Arrangement: With Child ADL: Support Services 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 History of Recent Travel: No - Allergies Allergies/Adverse Reactions: Allergies Allergy/AdvReac Type Severity Reaction Status Date / Time No Known Allergies Allergy Verified 10/14/19 10:17 - Home Medications Home Medications: Ambulatory Orders Aspirin [Aspirin EC] 81 mg PO DAILY 09/12/17 Folic Acid 1 mg PO DAILY 09/13/17 Atorvastatin Calcium [Lipitor] 10 mg PO DAILY 01/25/19 Ranolazine [Ranexa -] 1,000 mg PO BID tab 02/01/19 Pantoprazole Sodium [Protonix -] 40 mg PO DAILY tablet.ec 02/16/19 Icosapent Ethyl [Vascepa] 1 gm PO BID 02/27/19 Acetaminophen [Tylenol .Regular Strength -] 650 mg PO Q6H PRN tablet 03/08/19 Apixaban [Eliquis -] 2.5 mg PO BID tablet 03/08/19 Furosemide [Lasix -] 40 mg PO DAILY tablet 03/08/19 Insulin (Levemir) [Levemir Vial] 25 units SQ HS #100 units 05/24/19 Insulin (Levemir) [Levemir Vial] 35 units SQ AM #100 units 03/08/19 Insulin Sliding Scale [Novolog Vial Sliding Scale -] 1 vial SQ ACHS #0 units Metoprolol Succinate [Toprol XL -] 100 mg PO DAILY tab.sr.24h 03/08/19 Physical Exam Vital Signs: AFVSS Cor: RSR, No murmurs, No gallops Lungs: Clear to P&A Abd: Soft, Normal bowel sounds, No organomegaly Ext:No significant edema Assessment/Plan 74 y/o M with PMH DMT2,Neuropathy,HLD,HTN,CAD s/p PPM ([facility]; [employer], [employer]), diastolic CHF, aflutter (eliquis), CKD, who presented with dyspnea on exertion,shoulder pain. He presents to the ED for abnormal outpatient labs patient complaining of fatigue outpatient abnormalities was a low hemoglobin 6.5 He has low risk MDS --was last seen at [facility] by Dr. Torre in 02/01 Had been on revlimid Prior to that had been on eltrombopag on a trial transfused PRBCs Needs to follow up with PMD
[2019-10-16] MEDS: ATORVASTATIN CA 10 MG TABLET (FP) PO SCH (21:09)
[2019-10-17] MEDS: INSULIN (LEVEMIR) 100 UNITS/ML UNITS SQ SCH (06:17)
[2019-10-17] MEDS: INSULIN SLIDING SCALE (NOVOLOG) 1 VIAL SQ SCH ×2 (06:18→11:36)
--- NOTE | 2019-10-17 08:18 | PN ---
Teaching Attending Note Name of Resident: Natalie Guerrero ATTENDING PHYSICIAN STATEMENT I saw and evaluated the patient. I reviewed the resident's note and discussed the case with the resident. I agree with the resident's findings and plan as documented. SUBJECTIVE: Feels improved walking comfortably OBJECTIVE: Vital Signs Temperature 97.9 F 10/17/19 06:29 Pulse Rate 93 H 10/17/19 06:29 Respiratory Rate 20 10/17/19 06:29 Blood Pressure 98/50 L 10/17/19 06:29 O2 Sat by Pulse Oximetry (%) 100 10/16/19 21:00 General: Elderly man, comfortable, not in distress HEENT; mucous membranes moist, no anemia, no jaundice, PERRLA, no nystagmus Neck: No JVD, supple, no bruit, thyroid palpably normal, normal carotid pulsations. Chest: Nontender, clear to auscultation bilaterally/bilateral wheezing/ bilateral basal rales. CVS: S1-S2 regular/irregular no murmur/gallop/rub Abdomen: Nondistended, soft, bowel sounds present. Extremities: No edema., No calf, tenderness, pulses present COORDINATOR OF PLACEMENT: AO X3 , no gross motor sensory deficit CBC, BMP 10/16/19 05:43 10/16/19 05:43 Active Medications Apixaban (Eliquis -) 5 mg PO BID [facility] Last Admin: 10/16/19 21:09 Dose: 5 mg Aspirin (Ecotrin -) 81 mg PO DAILY [facility] Last Admin: 10/16/19 09:57 Dose: 81 mg Atorvastatin Calcium (Lipitor -) 10 mg PO [facility] Last Admin: 10/16/19 21:09 Dose: 10 mg Folic Acid (Folic Acid -) 1 mg PO DAILY [facility] Last Admin: 10/16/19 09:57 Dose: 1 mg Furosemide (Lasix -) 40 mg PO DAILY [facility] Last Admin: 10/16/19 09:58 Dose: 40 mg Insulin Aspart (Novolog Vial Sliding Scale -) 1 vial SQ [facility]; Protocol Last Admin: 10/17/19 06:18 Dose: Not Given Insulin Detemir (Levemir Vial) 25 units SQ HS [facility] Last Admin: 10/16/19 21:10 Dose: 25 units Insulin Detemir (Levemir Vial) 35 units SQ AM [facility] Last Admin: 10/17/19 06:17 Dose: 35 units Metoprolol Succinate (Toprol Xl -) 100 mg PO DAILY [facility] Last Admin: 10/16/19 09:57 Dose: 100 mg Dynel-7-Dclg Ethyl Esters (Lovaza -) 1 gm PO BID [facility] Last Admin: 10/16/19 21:09 Dose: 1 gm Pantoprazole Sodium (Protonix -) 40 mg PO DAILY [facility] Last Admin: 10/16/19 09:58 Dose: 40 mg Ranolazine (Ranexa -) 1,000 mg PO BID [facility] Last Admin: 10/16/19 21:09 Dose: 1,000 mg ASSESSMENT AND PLAN: 74 years old man known case of myelodysplastic syndrome, chronic anemia, CAD status post CABG/PCI/stent, chronic demand ischemia, previously systolic heart failure secondary to myocardial ischemia and ischemic cardiomyopathy status post AICD placement, now EF improved MD, Paroxysmal atrial fibrillation/flutter [id number] score of 5 on chronic anticoagulation on Eliquis, type 2 diabetes mellitus, COPD, CKD stage III admitted with Symptomatic anemia, status post transfusion, H&H stable mildly elevated troponin cleared by cardiology to DC home. Plan: Will DC home on current management Problem List - Problems (1) Anemia Assessment/Plan: Due to MDS s/p transfusion H&H stable. Problems reviewed: Yes Code(s): D64.9 - ANEMIA, UNSPECIFIED Qualifiers: Anemia type: unspecified type Qualified Code(s): D64.9 - Anemia, unspecified (2) Elevated troponin Assessment/Plan: Demand ischemia due to anemia, revealed by cardiology cleared to be discharged Problems reviewed: Yes Code(s): R74.8 - ABNORMAL LEVELS OF OTHER SERUM ENZYMES (3) Type 2 diabetes mellitus with other diabetic kidney complication Assessment/Plan: Continue current regimen optimize glycemic Problems reviewed: Yes Code(s): E11.29 - TYPE 2 DIABETES MELLITUS W OTH DIABETIC KIDNEY COMPLICATION (4) (HFpEF) heart failure with preserved ejection fraction Assessment/Plan: Compensated continue current management Problems reviewed: Yes Code(s): I50.30 - UNSPECIFIED DIASTOLIC (CONGESTIVE) HEART FAILURE (5) AF (paroxysmal atrial fibrillation) Assessment/Plan: Rate controlled on anticoagulation continue Problems reviewed: Yes Code(s): I48.0 - PAROXYSMAL ATRIAL FIBRILLATION (6) HTN (hypertension) Assessment/Plan: Well-controlled continue current medication Problems reviewed: Yes Code(s): I10 - ESSENTIAL (PRIMARY) HYPERTENSION Qualifiers: Hypertension type: essential hypertension Qualified Code(s): I10 - Essential (primary) hypertension (7) COPD (chronic obstructive pulmonary disease) Assessment/Plan: Compensated continue current meds Problems reviewed: Yes Code(s): J44.9 - CHRONIC OBSTRUCTIVE PULMONARY DISEASE, UNSPECIFIED
[2019-10-17 08:34] LABS: BASO % 0.5 % (0-2.0); HEMATOCRIT 25.8 % (35.4-49); HEMOGLOBIN 8.5 GM/dL (11.7-16.9); LYMPH % 20.9 % (8-40); MCH 31.5 pg (25.7-33.7); MEAN CELL VOLUME 95.5 fl (80-96); MEAN PLT VOLUME 8.9 fl (7.5-11.1); NEUT % 63.6 % (42.8-82.8); PLATELET COUNT 124 K/MM3 (134-434); RDW 28.6 % (11.9-15.9)
[2019-10-17 08:59] LABS: BLOOD UREA NITROGEN 34.3 mg/dL (7-18); CALCIUM 9.2 mg/dL (8.5-10.1); CREATININE 1.7 mg/dL (0.55-1.3); POTASSIUM 4.5 mmol/L (3.5-5.1)
[2019-10-17] MEDS: RANOLAZINE E.R. 1,000 MG TABLET (FP) PO SCH (09:16)
[2019-10-17] MEDS: ASPIRIN COATED 81 MG TABLET.EC PO SCH (09:16)
[2019-10-17] MEDS: PANTOPRAZOLE 40 MG TABLET (FP) PO SCH (09:17)
[2019-10-17] MEDS: APIXABAN 5 MG TABLET PO SCH (09:17)
[2019-10-17] MEDS: FOLIC ACID 1 MG TABLET (FP) PO SCH (09:17)
[2019-10-17 09:30] VITALS: BP 128/47; PULSE 95; TEMP 97.8
[2019-10-17] MEDS: FUROSEMIDE 40 MG TABLET (FP) PO SCH (09:39)
[2019-10-17 10:28] LABS: ANISOCYTOSIS 2+; MACROCYTOSIS 1+; PLATELET ESTIMATE DECREASED
[2019-10-17] MEDS ORDERED: FUROSEMIDE 40 MG TABLET (FP) PO SCH (11:25)
[2019-10-17] MEDS ORDERED: INSULIN SLIDING SCALE (NOVOLOG) 1 VIAL SQ ONE (11:31)
[2019-10-17] MEDS: OMEGA-3 ACID ETHYL ESTERS (FATTY-ACIDS) 1 GM CAPSULE (FP) PO SCH (11:36)
--- NOTE | 2019-10-17 12:22 | DS ---
Physical Exam: SUBJECTIVE: Patient seen and examined at bedside. Without complaint. Feeling well and would like to go home. Medications d/w cardio: will send home on lasix 20mg qd, metoprolol succinate 50mg qd (half doses). OBJECTIVE: Vital Signs Period Temp Pulse Resp BP Sys/Renteria Pulse Ox Last 24 Hr 97.6 F-98.3 F 82-95 19-22 89-128/46-59 100 PHYSICAL EXAM general: OOB in chair HEENT: NCAT, +conjunctival pallor. neck: supple, no JVD cardio: S1, S2 RRR. no r/m/g pulm: CTA b/l abdomen: obese, nontender, nondistended LE: 2+ pulses, no edema neuro: BATTERYMAN 2-12 grossly intact LABS Laboratory Results - last 24 hr 10/17/19 10/17/19 10/17/19 08:10 08:10 11:33 WBC 6.0 RBC 2.70 L Hgb 8.5 L Hct 25.8 L MCV 95.5 MCH 31.5 MCHC 33.0 RDW 28.6 H Plt Count 124 L MPV 8.9 Absolute Neuts (auto) 3.8 Neutrophils % 63.6 Neutrophils % (Manual) 44.0 D Band Neutrophils % 3.0 Lymphocytes % 20.9 D Lymphocytes % (Manual) 22.0 D Monocytes % 13.0 H Monocytes % (Manual) 11 H Eosinophils % 2.0 D Eosinophils % (Manual) 2.0 D Basophils % 0.5 Basophils % (Manual) 0.0 Myelocytes % (Man) 10 H D Promyelocytes % (Man) 2 D Blast Cells % (Manual) 0 Nucleated RBC % 1 H Metamyelocytes 3 H D Hypochromia 0 Platelet Estimate Decreased Polychromasia 2+ Poikilocytosis 2+ Basophilic Stippling 1+ Anisocytosis 2+ Microcytosis 2+ Macrocytosis 1+ Schistocytes 1+ Sodium 135 L Potassium 4.5 Chloride 99 Carbon Dioxide 30 Anion Gap 6 L BUN 34.3 H Creatinine 1.7 H Est GFR (CKD-EPI)AfAm 45.68 Est GFR (CKD-EPI)NonAf 39.41 POC Glucometer 191 Random Glucose 111 H Calcium 9.2 10/14/19 10/15/19 10/15/19 14:02 05:45 13:10 WBC 7.0 7.4 8.5 RBC 2.11 L Hgb 6.5 L* 6.9 L* 8.0 L Hct 19.7 L D 20.4 L 24.3 L D Plt Count 132 L 118 L 119 L Monocytes % 10.3 H Monocytes % (Manual) 9 D Nucleated RBC % 1 H 1 H 1 H Metamyelocytes 10/16/19 10/17/19 05:43 08:10 WBC 6.0 RBC Hgb 8.1 L 8.5 L Hct 24.2 L 25.8 L Plt Count 126 L 124 L Monocytes % 11.9 H 13.0 H Monocytes % (Manual) Nucleated RBC % 1 H 1 H Metamyelocytes 3 H D 10/14/19 14:02 PT with INR 17.30 H INR 1.46 H 10/14/19 10/14/19 10/14/19 14:02 18:30 22:29 Sodium Potassium Chloride Carbon Dioxide BUN Creatinine Est GFR (CKD-EPI)AfAm Est GFR (CKD-EPI)NonAf POC Glucometer 345 Random Glucose Hemoglobin A1c % Calcium Phosphorus Magnesium Troponin I 2.01 H* 1.61 H* 10/15/19 10/15/19 10/16/19 05:45 05:45 05:43 Sodium 133 L 136 Potassium 4.4 4.1 Chloride 98 100 Carbon Dioxide 31 BUN 33.8 H 30.0 H Creatinine 1.8 H 1.6 H Est GFR (CKD-EPI)AfAm 42.63 Est GFR (CKD-EPI)NonAf 36.78 POC Glucometer Random Glucose 254 H Hemoglobin A1c % 9.4 H Calcium 8.9 9.2 Phosphorus 3.5 4.3 Magnesium 2.0 2.3 Troponin I 10/17/19 08:10 Sodium 135 L Potassium 4.5 Chloride 99 Carbon Dioxide BUN 34.3 H Creatinine 1.7 H Est GFR (CKD-EPI)AfAm Est GFR (CKD-EPI)NonAf POC Glucometer Random Glucose Hemoglobin A1c % Calcium Phosphorus Magnesium Troponin I Imaging EKG: NSR rate 86bpm, +ST dep inferior leads, lateral changes- similar to previous. qtc 449ms CXR: official read mentions infiltrate, however pt asymptomatic. no effusions HOSPITAL COURSE: Date of Admission:10/14/19 Date of Discharge: 10/17/19 74 y/o M with PMH CAD s/p PPM ([facility]; [employer], [employer]), diastolic CHF, aflutter (eliquis), IDDM, CKD, who presents for low Hb. Found to be 6.5 on admission. #Normocytic anemia -possible 2/2 CKD, MDS -iron studies, FOBT, b12, folate WNL -s/p 2u prbc, with adequate rise. hb 8.5 on d/c -transfusion threshold to Hb>8; as with cardiac hx -can still c/w asa, eliquis as no overt signs of bleeding however pt to discuss w/ PCP on d/c -follow with Dr. Mace (PCP), Dr. Torre ([facility]) #CAD s/p PPM, AICD -c/w asa, ranexa #Diastolic CHF -seen by cardio, rec 1/ lasix and metoprolol dose (20mg lasix qd, 50mg met succ qd) -had recent ECHO 02/2019; LVSF normal, mod TR, MR -wts, na control 2g, strict i/o -not in exacerbation -c/w metoprolol for rate control -will follow with Dr. Maddox on d/c #tropinemia - improved -likely chronic, may partially be demand -trending down. #hx flutter -c/w eliquis #IDDM -c/w lev 25u sq HS, 35u AM -ISS, BGM ACHS Minutes to complete discharge: 44 Discharge Summary Problems reviewed: Yes Reason For Visit: ANEMIA ELEVATED TROPONIN LEVEL Current Active Problems AF (paroxysmal atrial fibrillation) (Acute) Anemia (Acute) Diabetes mellitus with hyperosmolarity (Acute) Elevated troponin (Acute) Leg edema (Acute) MDS (myelodysplastic syndrome) (Acute) Type 2 diabetes mellitus with other diabetic kidney complication (Acute) (HFpEF) heart failure with preserved ejection fraction (Chronic) Condition: Improved - Instructions Diet, Activity, Other Instructions: You were in the hospital because your hemoglobin was low. When you came to the hospital, it was 6.5. You received 2 units of packed red blood cells, and your counts improved. On discharge, your hemoglobin is 8.5. You had no signs of GI bleeding in the hospital, your counts were likely due to your myelodysplastic syndrome. While you were in the hospital, you were seen by the cardiology, primary medicine, and hematology/oncology teams. You improved and are being sent home. Medications You have not been started on any new medications. However please note the following changes in your meds: -Your lasix dose (40mg) was CHANGED to 20mg daily. (half the dose) Continue to take this new dose -Your metoprolol succinate (100mg) dose was changed to 50mg daily (half the dose). Continue to take this new dose. This was discussed with the electrical calibrator that saw you in the hospital. Care You will need to discuss with your primary care physician the need for eliquis and aspirin in your treatment regimen due to your recent low blood count in the hospital (as above). Testing You will need to have your CBC (complete blood count) and BMP (basic metabolic panel) repeated this week to check your hemoglobin and Creatinine respectively. Follow with your primary care physician concerning your CKD. (chronic kidney disease) Follow up appointments Please follow with the following doctors upon your discharge: -Dr. Mace, your primary care physician - 1 week , to discuss your visit. -Dr. Torre, your solo musician/oncologist from [facility] with whom you follow with for your myelodysplastic syndrome- 1 week -Dr. Maddox, your electrical calibrator- 1 week. Referrals: Dr. Perry Torre [Other] - 1 Week Tunde Maddox MD [Staff Physician] - 1 Week Winston Mace MD [Non Staff, Medical] - 1 Week Disposition: HOME - Home Medications Comprehensive Discharge Medication List: Ambulatory Orders Aspirin [Aspirin EC] 81 mg PO DAILY 09/12/17 Folic Acid 1 mg PO DAILY 09/13/17 Atorvastatin Calcium [Lipitor] 10 mg PO DAILY 01/25/19 Ranolazine [Ranexa -] 1,000 mg PO BID tab 02/01/19 Pantoprazole Sodium [Protonix -] 40 mg PO DAILY tablet.ec 02/16/19 Icosapent Ethyl [Vascepa] 1 gm PO BID 02/27/19 Acetaminophen [Tylenol .Regular Strength -] 650 mg PO Q6H PRN tablet 03/08/19 Apixaban [Eliquis -] 2.5 mg PO BID tablet 03/08/19 Insulin (Levemir) [Levemir Vial] 25 units SQ HS #100 units 03/08/19 Insulin (Levemir) [Levemir Vial] 35 units SQ AM #100 units 03/08/19 Insulin Sliding Scale [Novolog Vial Sliding Scale -] 1 vial SQ ACHS #0 units Furosemide [Lasix -] 20 mg PO DAILY #30 tablet 10/17/19 Metoprolol Succinate [Toprol XL -] 50 mg PO DAILY #30 tab.sr.24h 10/17/19 This patient is new to me today: No Emergency Visit: No Critical Care patient: No - Discharge Referral [facility]erred to [facility] No
== END 2019-10-17 14:26 | disposition home or self-care (01) | DRG 812 ==
LOC: JER 10:09 → JERBED 15:49 → J4S 23:42
PROVIDERS: ADMIT Internal Medicine Endocrinology, Diabetes & Metabolism; ATTEND Internal Medicine
PROC: 30233N1 Transfusion of Nonautologous Red Blood Cells into Peripheral Vein, Percutaneous Approach (ICD-10-PCS; principal; 2019-10-15)
DX: D46.9 Myelodysplastic syndrome, unspecified (principal); I48.92 Unspecified atrial flutter; I13.0 Hypertensive heart and chronic kidney disease with heart failure and stage 1 through stage 4 chronic kidney disease, or unspecified chronic kidney disease; I50.30 Unspecified diastolic (congestive) heart failure; I24.8 Other forms of acute ischemic heart disease; I25.10 Atherosclerotic heart disease of native coronary artery without angina pectoris; J44.9 Chronic obstructive pulmonary disease, unspecified; G47.33 Obstructive sleep apnea (adult) (pediatric); N18.3 Chronic kidney disease, stage 3 (moderate); E11.22 Type 2 diabetes mellitus with diabetic chronic kidney disease; D63.8 Anemia in other chronic diseases classified elsewhere; E78.5 Hyperlipidemia, unspecified; I27.20 Pulmonary hypertension, unspecified; I25.2 Old myocardial infarction; I48.0 Paroxysmal atrial fibrillation; E66.9 Obesity, unspecified; E11.40 Type 2 diabetes mellitus with diabetic neuropathy, unspecified; Z68.31 Body mass index [BMI] 31.0-31.9, adult; K59.09 Other constipation; K76.0 Fatty (change of) liver, not elsewhere classified; R74.8 Abnormal levels of other serum enzymes; I48.91 Unspecified atrial fibrillation; Z87.11 Personal history of peptic ulcer disease; Z95.810 Presence of automatic (implantable) cardiac defibrillator; Z95.5 Presence of coronary angioplasty implant and graft; Z99.81 Dependence on supplemental oxygen
CPT/HCPCS: 36415; 36430; 71046-TC-FY; 80048; 80053; 82272; 82607; 82728; 82746; 82962; 83036; 83540; 83550; 83735; 84100; 84484; 85025; 85610; 86850; 86900; 86901; 86922; 93005; 93010; 99285-25; P9058

== ENCOUNTER 2019-12-05 05:40 | Day surgery (SDC) | payer OTHER ==
[2019-12-05 10:45] LABS: BASO % 0.4 % (0-2.0); EOS % 0.8 % (0-4.5); HEMATOCRIT 21.6 % (35.4-49); HEMOGLOBIN 7.3 GM/dL (11.7-16.9); LYMPH % 15.7 % (8-40); MCH 35.2 pg (25.7-33.7); MCHC 33.7 g/dl (32.0-35.9); MEAN CELL VOLUME 104.3 fl (80-96); MEAN PLT VOLUME 7.9 fl (7.5-11.1); NEUT % 73.1 % (42.8-82.8); RBC 2.07 M/mm3 (4.00-5.60); RDW 30.9 % (11.9-15.9); WHITE BLOOD COUNT 5.4 K/mm3 (4.0-10.0)
[2019-12-05 11:16] LABS: ALBUMIN 3.7 g/dl (3.4-5.0); BILIRUBIN,TOTAL 1.1 mg/dL (0.2-1); BLOOD UREA NITROGEN 22.4 mg/dL (7-18); CALCIUM 8.7 mg/dL (8.5-10.1); CREATININE 1.6 mg/dL (0.55-1.3); POTASSIUM 4.9 mmol/L (3.5-5.1); TOT PROT 7.2 g/dl (6.4-8.2)
[2019-12-05 12:11] LABS: ANISOCYTOSIS 3+; MACROCYTOSIS 2+; PLATELET ESTIMATE DECREASED
[2019-12-05] MEDS ORDERED: FUROSEMIDE 40 MG/4 ML INJECTABLE VIAL IVPUSH ONE ×2 (12:15→22:15)
[2019-12-05] MEDS ORDERED: MECLIZINE HCL 25 MG TABLET (FP) PO PRN (20:28)
--- NOTE | 2019-12-05 21:41 | HP ---
History and Physical History and Physical: PAtient seen and examined Here for elective blood transfusion Denies any specific complaints Last Vital Signs Temp Pulse Resp BP Pulse Ox 98.1 F 85 18 120/57 L 12/06/19 08:45 12/06/19 08:45 12/06/19 08:45 12/06/19 08:45 Cor: RSR, No murmurs, No gallops Lungs: Clear to P&A Abd: Soft, Normal bowel sounds, No organomegaly Ext: chronic stasis LAbs/Meds reviewed A/P 74year old male with history of COPD, CAD s/p [place], CABG in 2004, HTN, DM and MDS. Was previously enrolled [id number]. Aryaon Eltrombopag/revlimidfor clinical trial - [id number]. Initiated on 2017 Hiserythropoietin level was measuredat 157 in Jul 2017 Patient came off the study due to missed appointments and follow ups. has the SF3B1 and [id number] Transfusion as needed for now ??luspatercept upon approval For blood transfusion for Hgb 7.3
[2019-12-05] MEDS ORDERED: ATORVASTATIN CA 40 MG TABLET (FP) PO SCH (22:00)
[2019-12-05] MEDS ORDERED: INSULIN (LEVEMIR) 100 UNITS/ML UNITS SQ SCH (22:00)
[2019-12-05] MEDS ORDERED: RANOLAZINE E.R. 500 MG TABLET (FP) ONE (22:12)
[2019-12-05] MEDS ORDERED: INSULIN (NOVOLOG) ASPART 100 UNITS/ML 10ML VIAL ONE (22:13)
[2019-12-05] MEDS: INSULIN SLIDING SCALE (NOVOLOG) 1 VIAL SQ SCH (22:51)
[2019-12-05] MEDS ORDERED: PT OWN MED DRAWER 7, Y5N ONE (23:07)
[2019-12-05] MEDS: RANOLAZINE E.R. 1,000 MG TABLET (FP) PO SCH (23:10)
[2019-12-05] MEDS: OMEGA-3 ACID ETHYL ESTERS (FATTY-ACIDS) 1 GM CAPSULE (FP) PO SCH (23:10)
[2019-12-06] MEDS: INSULIN SLIDING SCALE (NOVOLOG) 1 VIAL SQ SCH (06:31)
[2019-12-06] MEDS ORDERED: INSULIN (LEVEMIR) 100 UNITS/ML UNITS SQ SCH (07:00)
[2019-12-06 07:04] LABS: BASO % 0.4 % (0-2.0); EOS % 1.1 % (0-4.5); HEMATOCRIT 27.4 % (35.4-49); HEMOGLOBIN 9.4 GM/dL (11.7-16.9); MCH 33.5 pg (25.7-33.7); MCHC 34.2 g/dl (32.0-35.9); MEAN PLT VOLUME 8.3 fl (7.5-11.1); MONO % 10.2 % (3.8-10.2); NEUT % 73.3 % (42.8-82.8); PLATELET COUNT 101 K/MM3 (134-434); RDW 28.8 % (11.9-15.9); WHITE BLOOD COUNT 7.4 K/mm3 (4.0-10.0)
[2019-12-06 07:34] LABS: ALBUMIN 3.8 g/dl (3.4-5.0); BILIRUBIN,TOTAL 1.8 mg/dL (0.2-1); BLOOD UREA NITROGEN 26.9 mg/dL (7-18); CALCIUM 8.8 mg/dL (8.5-10.1); CREATININE 1.6 mg/dL (0.55-1.3); POTASSIUM 4.5 mmol/L (3.5-5.1); TOT PROT 7.2 g/dl (6.4-8.2)
[2019-12-06 08:46] VITALS: BP 120/57; PULSE 85; TEMP 98.1
[2019-12-06] MEDS ORDERED: RANOLAZINE E.R. 500 MG TABLET (FP) ONE (09:05)
[2019-12-06] MEDS: RANOLAZINE E.R. 1,000 MG TABLET (FP) PO SCH (09:09)
[2019-12-06] MEDS ORDERED: FOLIC ACID 1 MG TABLET (FP) PO SCH (10:00)
[2019-12-06] MEDS ORDERED: ASPIRIN 81 MG CHEWABLE TABLETS PO SCH (10:00)
[2019-12-06] MEDS ORDERED: PANTOPRAZOLE 40 MG TABLET PO SCH (10:00)
[2019-12-06 10:26] LABS: ANISOCYTOSIS 2+; MACROCYTOSIS 2+; PLATELET ESTIMATE DECREASED
--- NOTE | 2019-12-06 10:44 | DS ---
Physical Exam: SUBJECTIVE: Pt received 2UPRBC overnight with appropriate increase in H&H. Pt has no complaints today and already has follow-up appointment with Dr. Lake on December 19, 2019 at 12pm. OBJECTIVE: Vital Signs Period Temp Pulse Resp BP Sys/Renteria Pulse Ox Last 24 Hr 97.9 F-98.5 F 69-88 18-22 111-138/37-73 PHYSICAL EXAM GENERAL: The patient is awake, alert, and fully oriented, in no acute distress. HEENT: [place], sclera anicteric, MMM without thrush or jaundice LUNGS: CTA bilaterally, no wheezes, no crackles, no accessory muscle use. HEART: RRR, S1, S2 without murmur ABDOMEN: Soft, nontender, nondistended, normoactive bowel sounds EXTREMITIES: 2+ pulses, warm, well-perfused, no edema. PSYCH: Normal mood, normal affect. SKIN: Warm, dry, no rashes noted. LABS Laboratory Results - last 24 hr 12/05/19 12/05/19 12/05/19 09:53 10:25 10:25 WBC 5.4 RBC 2.07 L Hgb 7.3 L Hct 21.6 L D MCV 104.3 H MCH 35.2 H MCHC 33.7 RDW 30.9 H Plt Count MPV 7.9 Absolute Neuts (auto) 4.0 Neutrophils % 73.1 Neutrophils % (Manual) 76.0 D Band Neutrophils % 0.0 Lymphocytes % 15.7 Lymphocytes % (Manual) 13.0 Monocytes % 10.0 Monocytes % (Manual) 7 D Eosinophils % 0.8 Eosinophils % (Manual) 0.0 Basophils % 0.4 Basophils % (Manual) 0.0 Myelocytes % (Man) 3 H D Promyelocytes % (Man) 0 Blast Cells % (Manual) 0 Nucleated RBC % 2 H Metamyelocytes 0 Hypochromia 0 Platelet Estimate Decreased Polychromasia 2+ Poikilocytosis 1+ Basophilic Stippling 2+ Anisocytosis 3+ Microcytosis 1+ Macrocytosis 2+ Sodium 133 L Potassium 4.9 Chloride 102 Carbon Dioxide 27 Anion Gap 4 L BUN 22.4 H Creatinine 1.6 H Est GFR (CKD-EPI)AfAm 49.15 Est GFR (CKD-EPI)NonAf 42.41 POC Glucometer Random Glucose 253 H Calcium 8.7 Total Bilirubin 1.1 H AST 14 L ALT 18 Alkaline Phosphatase 47 Total Protein 7.2 Albumin 3.7 Blood Type A POSITIVE Antibody Screen Negative Crossmatch See Detail 12/05/19 12/06/19 12/06/19 22:42 05:51 06:20 WBC 7.4 RBC 2.80 L Hgb 9.4 L Hct 27.4 L D MCV 98.0 H D MCH 33.5 MCHC 34.2 RDW 28.8 H Plt Count 101 L D MPV 8.3 Absolute Neuts (auto) 5.4 Neutrophils % 73.3 Neutrophils % (Manual) Band Neutrophils % Lymphocytes % 15.0 Lymphocytes % (Manual) Monocytes % 10.2 Monocytes % (Manual) Eosinophils % 1.1 Eosinophils % (Manual) Basophils % 0.4 Basophils % (Manual) Myelocytes % (Man) Promyelocytes % (Man) Blast Cells % (Manual) Nucleated RBC % 1 H Metamyelocytes Hypochromia Platelet Estimate Polychromasia Poikilocytosis Basophilic Stippling Anisocytosis Microcytosis Macrocytosis Sodium Potassium Chloride Carbon Dioxide Anion Gap BUN Creatinine Est GFR (CKD-EPI)AfAm Est GFR (CKD-EPI)NonAf POC Glucometer 220 104 Random Glucose Calcium Total Bilirubin AST ALT Alkaline Phosphatase Total Protein Albumin Blood Type Antibody Screen Crossmatch 12/06/19 06:20 WBC RBC Hgb Hct MCV MCH MCHC RDW Plt Count MPV Absolute Neuts (auto) Neutrophils % Neutrophils % (Manual) Band Neutrophils % Lymphocytes % Lymphocytes % (Manual) Monocytes % Monocytes % (Manual) Eosinophils % Eosinophils % (Manual) Basophils % Basophils % (Manual) Myelocytes % (Man) Promyelocytes % (Man) Blast Cells % (Manual) Nucleated RBC % Metamyelocytes Hypochromia Platelet Estimate Polychromasia Poikilocytosis Basophilic Stippling Anisocytosis Microcytosis Macrocytosis Sodium 135 L Potassium 4.5 Chloride 102 Carbon Dioxide 27 Anion Gap 6 L BUN 26.9 H Creatinine 1.6 H Est GFR (CKD-EPI)AfAm 49.15 Est GFR (CKD-EPI)NonAf 42.41 POC Glucometer Random Glucose 101 Calcium 8.8 Total Bilirubin 1.8 H AST 14 L ALT 17 Alkaline Phosphatase 46 Total Protein 7.2 Albumin 3.8 Blood Type Antibody Screen Crossmatch HOSPITAL COURSE: Date of Admission:12/05/19 Date of Discharge: 12/06/19 Pt was satellite stay during this visit. 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 Pt was seeing Dr. Torre and had care transitioned to Dr. Lake whom he follows with regularly. Pt came for blood transfusion, however due to increased antibiodies had to have specialized blood ordered. Overnight he received 2UPRBC total without any reaction and had appropriate increase to 9.4/27 with MCV 98. Rest of AM labs today as above. Pt is being discharged in stable condition back to home with follow-up already planned. Minutes to complete discharge: 33 Discharge Summary Problems reviewed: Yes Reason For Visit: VISIT AND BLOOD TRANSFUSION Condition: Stable - Instructions Diet, Activity, Other Instructions: Resume your medications as you have been taking before this short stay. Referrals: Aleksandra Hilton MD [Staff Physician] - (December 18, 12 PM appointment) Disposition: HOME - Home Medications Comprehensive Discharge Medication List: Ambulatory Orders Aspirin [Aspirin EC] 81 mg PO DAILY 09/12/17 Folic Acid 1 mg PO DAILY 09/13/17 Atorvastatin Calcium [Lipitor] 10 mg PO DAILY 01/25/19 Ranolazine [Ranexa -] 1,000 mg PO BID tab 02/01/19 Pantoprazole Sodium [Protonix -] 40 mg PO DAILY tablet.ec 02/16/19 Icosapent Ethyl [Vascepa] 1 gm PO BID 02/27/19 Acetaminophen [Tylenol .Regular Strength -] 650 mg PO Q6H PRN tablet 03/08/19 Apixaban [Eliquis -] 2.5 mg PO BID tablet 03/08/19 Insulin (Levemir) [Levemir Vial] 25 units SQ HS #100 units 03/08/19 Insulin (Levemir) [Levemir Vial] 35 units SQ AM #100 units 03/08/19 Insulin Sliding Scale [Novolog Vial Sliding Scale -] 1 vial SQ ACHS #0 units Furosemide [Lasix -] 20 mg PO DAILY #30 tablet 10/17/19 Metoprolol Succinate [Toprol XL -] 50 mg PO DAILY #30 tab.sr.24h 10/17/19 This patient is new to me today: No Emergency Visit: No Critical Care patient: No - Discharge Referral Referred to [facility] No ATTENDING PHYSICIAN STATEMENT I saw and evaluated the patient. I reviewed the resident's note and discussed the case with the resident. I agree with the resident's findings and plan as documented. SUBJECTIVE: OBJECTIVE: ASSESSMENT AND PLAN:
[2019-12-06] MEDS: OMEGA-3 ACID ETHYL ESTERS (FATTY-ACIDS) 1 GM CAPSULE (FP) PO SCH ×2 (11:02→11:11)
[2019-12-06] MEDS: TICAGRELOR 90 MG TABLET PO SCH ×2 (11:02→11:13)
== END 2019-12-06 11:48 | disposition home or self-care (01) ==
LOC: JONCBLOOD 05:40 → EDSTATUS 09:29 → J7W 11:51 → JONCBLOOD 12-06 11:48
PROVIDERS: ATTEND Internal Medicine Hematology & Oncology
PROC: 30233N1 Transfusion of Nonautologous Red Blood Cells into Peripheral Vein, Percutaneous Approach (ICD-10-PCS; principal; 2019-12-05)
DX: D46.9 Myelodysplastic syndrome, unspecified (principal); E11.9 Type 2 diabetes mellitus without complications
CPT/HCPCS: 36415; 36430; 36511; 80053; 82962; 85025; 86850; 86900; 86901; 86922; P9038; P9058